=== PATIENT | male | born 1940 | race Caucasian/White ===

== ENCOUNTER 2016-10-23 06:01 | Emergency (ER) | payer BC ==
[~2016-10-23] VITALS: Ht 172.7 cm; Wt 75.7 kg
[~2016-10-23 06:01] MED LIST: AMLO-110 PO; ASCO10003 PO; ASPI325T39 PO; ATV5X PO; CALC600T9 PO; FLUO20CA20 PO; HYDR-4331 PO; JAYLN PO; LANS30CA63 PO; LISI10TA PO; MAGN300C PO; METH-589 PO; MULT-506 PO; OMEGCAP2 PO; SIMV20TA2 PO; TRAM-10 PO
[2016-10-23 06:05] VITALS: TEMP 36.6; Ht 172.7 cm; Wt 75.7 kg
[2016-10-23] MEDS ORDERED: MELO7.5T5 PO (06:24)
[2016-10-23] MEDS ORDERED: DUTACAP PO (06:31)
[2016-10-23] MEDS ORDERED: OXYCODONE HCL IR 5 MG TAB (IMMEDIATE RELEASE) PO STA (07:02)
--- NOTE | 2016-10-23 07:02 | EMERGENCY ROOM VISIT NOTE ---
History First contact with patient: 06:53 Chief Complaint: LEG PAIN,LEG INJURY Stated Complaint: LEFT LEG PAIN History of Present Illness The patient is a 76 year old male who presents to the Emergency Room via private vehicle accompanied by with complaints of "left leg pain". Patient states that a few days ago began with left hip pain has migrated to his left calf. He denies any injury or trauma to the area. He points to the left posterior calf as a location of the pain that he rates as an 8/10. At 05 100 this morning he took 15 mg of hydrocodone. He denies any history of blood clots, fevers, chills, chest pain, shortness of breath, long car rides, taking blood thinners, redness or swelling. He notes that he did fall this morning as he felt unstable on the left leg secondary to pain and denies any additional injury. No loss of consciousness. Review of Systems A complete 10-point Review of Systems was discussed with the patient, with pertinent positives and negatives listed in the History of Present Illness. All remaining Review of Systems questions can be considered negative unless otherwise specified. Past Medical/Surgical History High blood pressure, kidney disease, bronchitis, pneumonia, stomach problems, ulcer, urinary problems, craniotomy, melanoma, spinal problems Family History Diabetes, heart disease, high blood pressure, cancer, gallbladder disease, kidney disease or stones. Social History Smoking Status: Never Smoker Social History: Patient denies tobacco use but drinks a small amount of alcohol. Current/Historical Medications Scheduled Amlodipine (Norvasc), 5 MG PO DAILY Ascorbic Acid (Vitamin C), 1,000 MG PO HS Aspirin (Aspirin Ec), 325 MG PO Q2D Calcium Carbonate-Vitamin D (Calcium + D), 1 TAB PO BID Dutasteride-Tamsulosin Hcl (Yancy), 1 CAP PO HS Fluoxetine Hcl (Pmdd) (Fluoxetine), 40 MG PO QAM Lansoprazole (Prevacid), 30 MG PO QAM Lisinopril (Prinivil), 40 MG PO QAM Lorazepam (Lorazepam), 1.5 MG PO HS Magnesium (Magnesium Elemental), 300 MG PO HS Meloxicam (Mobic), 15 MG PO HS Methimazole (Methimazole ), 5 MG PO HS Multivitamin (Multivitamin), 1 TAB PO QAM [place]-3 Fatty Acids (Fish Oil), 1 CAP PO QAM Simvastatin (Zocor), 20 MG PO QPM Tramadol (Ultram), 1 TAB PO HS Scheduled PRN Hydrocodone-Acetaminophen (Lortab 7.5-325 mg), 2 TAB PO HS PRN for Pain Allergies Coded Allergies: No Known Allergies (Unverified , 10/23/16) Physical Exam Vital Signs Date Time Temp Pulse Resp B/P Pulse Ox O2 Delivery O2 Flow Rate FiO2 10/23/16 09:51 50 18 168/79 97 Room Air 10/23/16 07:56 49 18 155/69 97 Room Air 10/23/16 06:05 36.6 61 16 119/73 95 Room Air Physical Exam VITAL SIGNS - Vital signs and nursing notes were reviewed. Patient is afebrile , normotensive, non-tachycardic and is saturating well on room air at 95%. 76-year-old male appearing his stated age who is in no acute distress. Communicates well with provider and answers questions appropriately. SKIN - Without rashes. HEAD - NC/AT. EYES - Sclera anicteric. Palpebral conjunctiva pink and moist with no injection noted. EARS - No deformities of external structures noted on gross examination bilaterally. MOUTH/OROPHARYNX - Without perioral cyanosis. NECK - Neck with FROM. Supple to palpation. No c spine tenderness. LUNGS - Chest wall symmetric without accessory muscle use, intercostals retractions, or central cyanosis. Normal vesicular breath sounds CTA B/L. No wheezes, rales, or rhonchi appreciated. CARDIAC - RRR with S1/S2. No murmur, rubs, or gallops appreciated. EXTREMITIES - No clubbing or peripheral cyanosis. No pretibial edema present. Vascularly intact. No tenderness of the left hip, proximal leg or knee. Slight tenderness to the posterior calf. +5/5 strength noted in UE/LE bilaterally. Unremarkable right lower extremity. NEUROLOGIC - Cranial nerves II through XII grossly intact. Sensory intact to light touch throughout. PSYCH - A&Ox3 and cooperates fully with examiner. Pt is very pleasant and interacts well with examiner. Medical Decision & Procedures ER Provider Diagnostic Interpretation: ULTRASOUND LEFT LOWER EXTREMITY VENOUS CLINICAL HISTORY: Left calf pain. COMPARISON STUDY: No priors. TECHNIQUE: Real-time, grayscale, and color Doppler sonography of the deep veins of the left lower extremity was performed from the inguinal crease to the calf. Compression and augmentation were utilized. FINDINGS: There is no sonographic evidence of deep venous thrombosis identified in the left lower extremity. The common femoral, superficial femoral, and popliteal veins are patent and normally compressible. The greater saphenous vein and the profunda femoris vein at the junction with the common femoral vein are clear. The visualized calf veins are patent. IMPRESSION: There is no sonographic evidence of deep venous thrombosis identified in the left lower extremity. Electronically signed by: Iraj Mandujano M.D. 10/23/2016 7:55 AM Dictated Date/Time: 10/23/2016 7:55 AM LEFT TIBIA/FIBULA 2 VIEWS ROUTINE CLINICAL HISTORY: Left calf pain, no injury COMPARISON: Left tibia and fibula radiographs April 27, 2013. FINDINGS: No acute fracture or osseous lesion is identified within the left tibia or fibula. Talar dome is intact and alignment of the left knee and ankle appears anatomic. IMPRESSION: No osseous abnormality of the left tibia or fibula identified Electronically signed by: Leo Mcfarland M.D. 10/23/2016 8:46 AM Dictated Date/Time: 10/23/2016 8:45 AM Laboratory Results 10/23/16 08:20 Red Blood Count 3.92, Mean Corpuscular Volume 94.6, Mean Corpuscular Hemoglobin 31.9, Mean Corpuscular Hemoglobin Concent 33.7, Mean Platelet Volume 9.7, Neutrophils (%) (Auto) 66.2, Lymphocytes (%) (Auto) 22.3, Monocytes (%) (Auto) 7.2, Eosinophils (%) (Auto) 3.7, Basophils (%) (Auto) 0.4, Neutrophils # (Auto) 5.32, Lymphocytes # (Auto) 1.79, Monocytes # (Auto) 0.58, Eosinophils # (Auto) 0.30, Basophils # (Auto) 0.03 10/23/16 08:20 Test 10/23/16 08:20 White Blood Count 8.04 K/uL (4.8-10.8) Red Blood Count 3.92 M/uL (4.7-6.1) Hemoglobin 12.5 g/dL (14.0-18.0) Hematocrit 37.1 % (42-52) Mean Corpuscular Volume 94.6 fL (80-100) Mean Corpuscular Hemoglobin 31.9 pg (25-34) Mean Corpuscular Hemoglobin Concent 33.7 g/dl (32-36) Platelet Count 152 K/uL (130-400) Mean Platelet Volume 9.7 fL (7.4-10.4) Neutrophils (%) (Auto) 66.2 % Lymphocytes (%) (Auto) 22.3 % Monocytes (%) (Auto) 7.2 % Eosinophils (%) (Auto) 3.7 % Basophils (%) (Auto) 0.4 % Neutrophils # (Auto) 5.32 K/uL (1.4-6.5) Lymphocytes # (Auto) 1.79 K/uL (1.2-3.4) Monocytes # (Auto) 0.58 K/uL (0.11-0.59) Eosinophils # (Auto) 0.30 K/uL (0-0.5) Basophils # (Auto) 0.03 K/uL (0-0.2) RDW Standard Deviation 47.5 fL (36.4-46.3) RDW Coefficient of Variation 13.7 % (11.5-14.5) Immature Granulocyte % (Auto) 0.2 % Immature Granulocyte # (Auto) 0.02 K/uL (0.00-0.02) Anion Gap 7.0 mmol/L (3-11) Est Creatinine Clear Calc Drug Dose 56.1 ml/min Estimated GFR () 75.7 Estimated GFR (Non- 65.3 BUN/Creatinine Ratio 16.6 (10-20) Calcium Level 8.4 mg/dl (8.5-10.1) Total Bilirubin 0.2 mg/dl (0.2-1) Aspartate Amino Transf (AST/SGOT) 21 U/L (15-37) Alanine Aminotransferase (ALT/SGPT) 27 U/L (12-78) Alkaline Phosphatase 70 U/L (45-117) Total Creatine Kinase 110 U/L (39-308) Creatine Kinase MB 2.3 ng/ml (0.5-3.6) Creatine Kinase MB Ratio 2.1 (0-3.0) Total Protein 5.8 gm/dl (6.4-8.2) Albumin 3.1 gm/dl (3.4-5.0) Globulin 2.7 gm/dl (2.5-4.0) Albumin/Globulin Ratio 1.1 (0.9-2) Medications Administered Medications (Trade) Dose Ordered Sig/Obed Route Start Time Stop Time Status Last Admin Dose Admin Oxycodone HCl (Roxicodone Immediate Rel Tab) 5 mg NOW STAT PO 10/23/16 07:02 10/23/16 07:04 DC 10/23/16 07:09 5 MG Medical Decision Patient was seen and evaluated as above. After obtaining a thorough history and physical examination patient was given 5 mg of OxyIR secondary to pain and an ultrasound of the left lower extremity to rule out what I suspected to be a DVT. There was no evidence of trauma to the leg via subjective or objective exam and there was positive Homans sign. Ultrasound results as above. Negative for DVT. I was concerned that there may be underlying etiologies therefore IV access was then initiated and a CBC, CMP, CPK and CK-MB were ordered to further evaluate patient's condition as well as an x-ray of the leg. CBC reveals slight anemia no leukocytosis. CMP reveals no slight abnormality , kidney abnormality. Calcium was slightly low at 8.4 and total protein albumin were slightly low. Radiograph was negative. No evidence of rhabdomyolysis upon CK-MB or CPK. I believe the patient likely has a contusion to this area or potential muscle strain. He did request additional pain medication and the patient and I thoroughly discussed his current pain medications and looked through the answering a drug monitoring system. I indicated that he has to active prescriptions for pain medication therefore I do not feel comfortable writing for additional medication on top of 2 current prescriptions for narcotic medication. He verbalizes understanding. He was given the number for an orthopedic surgeon and instructed to call the numbers soon as possible schedule follow-up. He was educated upon worrisome symptoms in which to return. He declined crutches. He had questions answered prior to discharge, and was discharged home in good condition. He did seem happy with plan of care. In evaluation treatment this patient following differential diagnoses were entertained: Rhabdomyolysis, contusion, muscle strain, fracture, DVT, among others. I believe he is likely experiencing a muscle strain. [place] Drug Monitoring Program Search Results: patient reviewed within database, see additional documentation Impression Primary Impression: Leg pain, left Additional Impression: Anemia Departure Information Dispostion Home / Self-Care Condition GOOD Referrals Harish Tran M.D. (PCP) Wali Mancini D.O. Patient Instructions My [facility] Additional Instructions You have been treated in the Emergency Department for Knee Pain. You have received pain medicine in the emergency department which impairs your ability to operate a vehicle. It is illegal for you to drive after receiving these medicines. You may continue your pain medication as you have indicated. If this is a recent injury (<24 hrs), ice can be applied to the area of pain for the first 3 days to help decrease pain and inflammation. Ice massages can be performed by freezing water in a paper cup, peeling back the cup to expose the ice and then massaging over the affected area. You have been provided the number for an Orthopaedic Surgeon. You should call this number as soon as possible to establish a follow-up visit from today's Emergency Department visit. Keep the knee brace in place until cleared by Orthopedics. Call your family doctor and orthopedic surgeon following today's visit and request follow-up as soon as possible. Return to the Emergency Department if your current symptoms worsen despite treatment course outlined above. Problem Qualifiers
--- NOTE | 2016-10-23 07:56 | DIAGNOSTIC IMAGING REPORT ---
ULTRASOUND LEFT LOWER EXTREMITY VENOUS CLINICAL HISTORY: Left calf pain. COMPARISON STUDY: No priors. TECHNIQUE: Real-time, grayscale, and color Doppler sonography of the deep veins of the left lower extremity was performed from the inguinal crease to the calf. Compression and augmentation were utilized. FINDINGS: There is no sonographic evidence of deep venous thrombosis identified in the left lower extremity. The common femoral, superficial femoral, and popliteal veins are patent and normally compressible. The greater saphenous vein and the profunda femoris vein at the junction with the common femoral vein are clear. The visualized calf veins are patent. IMPRESSION: There is no sonographic evidence of deep venous thrombosis identified in the left lower extremity. Electronically signed by: Iraj Mandujano M.D. 10/23/2016 7:55 AM Dictated Date/Time: 10/23/2016 7:55 AM
[2016-10-23 08:33] LABS: BASO % 0.4 %; BASO ABS # 0.03 K/uL (0-0.2); COMPLETE YES; EOS % 3.7 %; HEMATOCRIT 37.1 % (42-52); IG% 0.2 %; LYMPH % 22.3 %; LYMPH ABS # 1.79 K/uL (1.2-3.4); MEAN CELL VOLUME 94.6 fL (80-100); MEAN CORPUSCULAR HEMOGLOBIN 31.9 pg (25-34); MEAN CORPUSCULAR HGB CONC 33.7 g/dl (32-36); MEAN PLATELET VOLUME 9.7 fL (7.4-10.4); MONO % 7.2 %; NEUT % 66.2 %; PLATELET COUNT 152 K/uL (130-400); RED BLOOD COUNT 3.92 M/uL (4.7-6.1); WHITE BLOOD COUNT 8.04 K/uL (4.8-10.8)
--- NOTE | 2016-10-23 08:48 | DIAGNOSTIC IMAGING REPORT ---
LEFT TIBIA/FIBULA 2 VIEWS ROUTINE CLINICAL HISTORY: Left calf pain, no injury COMPARISON: Left tibia and fibula radiographs April 27, 2013. FINDINGS: No acute fracture or osseous lesion is identified within the left tibia or fibula. Talar dome is intact and alignment of the left knee and ankle appears anatomic. IMPRESSION: No osseous abnormality of the left tibia or fibula identified Electronically signed by: Leo Mcfarland M.D. 10/23/2016 8:46 AM Dictated Date/Time: 10/23/2016 8:45 AM
[2016-10-23 08:54] LABS: BUN/CREATININE RATIO 16.6 (10-20); CALCIUM 8.4 mg/dl (8.5-10.1); CREATININE 1.1 mg/dl (0.60-1.40); POTASSIUM 4.5 mmol/L (3.5-5.1)
[2016-10-23 08:57] LABS: ALB/GLOB RATIO 1.1 (0.9-2); CKMB/CK RATIO 2.1 (0-3.0)
[2016-10-23 09:51] VITALS: BP 168/79; PULSE 50; O2SAT 97
--- NOTE | 2016-10-24 21:13 | EMERGENCY ROOM VISIT NOTE ---
ED Visit Note First contact with patient: 06:53 I have personally seen and evaluated the patient with the PA. I agree with the diagnosis and management decisions and have been personally involved in the case. Please see Greogry Thurston PA-C's notes for further details of the history, physical and visit.
[2016-11-06] MEDS ORDERED: MULT-506 PO (13:48)
[2016-11-06] MEDS ORDERED: SIMV20TA5 PO (13:48)
[2016-11-06] MEDS ORDERED: METH-589 PO (13:48)
[2016-11-06] MEDS ORDERED: FLUO40CA8 PO (13:48)
[2016-11-06] MEDS ORDERED: LORA-741 PO (13:48)
[2016-11-06] MEDS ORDERED: CALC500C70 PO (13:48)
[2016-11-06] MEDS ORDERED: VITACAP26 PO (13:48)
[2016-11-06] MEDS ORDERED: OMEG10007 PO (13:48)
[2016-11-06] MEDS ORDERED: DUTACAP PO (13:48)
[2016-11-06] MEDS ORDERED: HYDR-5688 PO (13:48)
[2016-11-06] MEDS ORDERED: LISI1TAB3 PO (13:48)
[2016-11-06] MEDS ORDERED: RXC/5 PO (13:48)
[2016-11-06] MEDS ORDERED: GABA-113 PO (13:48)
[2016-11-06] MEDS ORDERED: ASPI325T39 PO (13:48)
[2016-11-06] MEDS ORDERED: MAGNESIUM 300 MG PO (13:48)
[2016-11-06] MEDS ORDERED: LANS30CA12 PO (13:48)
[2016-11-07] MEDS ORDERED: HYDR-3983 PO (15:04)
[2016-12-31] MEDS ORDERED: NORT25CA PO (08:39)
[2017-05-31] MEDS ORDERED: FURO-85 PO (14:22)
[2017-05-31] MEDS ORDERED: DOXA2TAB PO (14:22)
== END 2016-10-23 10:20 | disposition home or self-care (01) ==
LOC: C.EDB 06:02
DX: M79.605 Pain in left leg (principal); D64.9 Anemia, unspecified; I12.9 Hypertensive chronic kidney disease with stage 1 through stage 4 chronic kidney disease, or unspecified chronic kidney disease; N18.9 Chronic kidney disease, unspecified; Z79.82 Long term (current) use of aspirin; Z79.899 Other long term (current) drug therapy; Z83.3 Family history of diabetes mellitus; Z80.9 Family history of malignant neoplasm, unspecified; Z83.79 Family history of other diseases of the digestive system; Z84.1 Family history of disorders of kidney and ureter

== ENCOUNTER → 2016-10-26 | Outpatient (CLI) | payer BC ==
[~2016-10-26] MED LIST changes: +AMOX875T PO; +CALC500C70 PO; +DOXA2TAB PO; +DUTACAP PO; +FLUO40CA8 PO; +FURO-85 PO; +GABA-113 PO; +HYDR-3983 PO; +HYDR-5688 PO; -JAYLN PO; +LANS30CA12 PO; +LISI1TAB3 PO; +LISI40TA PO; +LORA-741 PO; +MAGN30TA4 PO; +MAGNESIUM 300 MG PO; +MELO7.5T5 PO; +NORT25CA PO; +NORT50CA PO; +OMEG10007 PO; +RXC/5 PO; +SIMV20TA5 PO; +TPRSR50 PO; +VITACAP26 PO; +[UNRECOGNIZED DRUG - CODE] PO
[2016-10-26 12:29] LABS: HEMATOCRIT 38.7 % (42-52); MEAN CELL VOLUME 95.1 fL (80-100); MEAN CORPUSCULAR HEMOGLOBIN 31.2 pg (25-34); MEAN CORPUSCULAR HGB CONC 32.8 g/dl (32-36); MEAN PLATELET VOLUME 10.5 fL (7.4-10.4); PLATELET COUNT 177 K/uL (130-400); RED BLOOD COUNT 4.07 M/uL (4.7-6.1); WHITE BLOOD COUNT 7.89 K/uL (4.8-10.8)
[2016-10-26 12:40] LABS: ALT/SGPT 63 U/L (12-78); BLOOD UREA NITROGEN 19 mg/dl (7-18); BUN/CREATININE RATIO 16.8 (10-20); CALCIUM 8.7 mg/dl (8.5-10.1); CARBON DIOXIDE 32 mmol/L (21-32); CHLORIDE 105 mmol/L (98-107); CHOLESTEROL 171 mg/dl (0-200); GLUCOSE 65 mg/dl (70-99); POTASSIUM 4.4 mmol/L (3.5-5.1); SODIUM 143 mmol/L (136-145); TRIGLYCERIDES 105 mg/dl (0-150); VERY LOW DENSITY LIPOPROT CALC 21 mg/dl
[2016-10-26 12:49] LABS: ALB/GLOB RATIO 1.1 (0.9-2); ALKALINE PHOSPHATASE 87 U/L (45-117); AST/SGOT 62 U/L (15-37); CHOLESTEROL/HDL RATIO 3.4; HDL CHOLESTEROL 50 mg/dl; LDL CHOLESTEROL CALCULATED 100 mg/dl
[2016-10-26 13:19] LABS: ESTIMATED AVERAGE GLUCOSE 105 mg/dl; HA1C FLAG Normal (Normal)
== END | disposition home or self-care (01) ==
LOC: C.LABBFT 09:38
PROVIDERS: ATTEND Internal Medicine
DX: E05.90 Thyrotoxicosis, unspecified without thyrotoxic crisis or storm (principal); I10 Essential (primary) hypertension; E78.00 Pure hypercholesterolemia, unspecified; R73.01 Impaired fasting glucose

== ENCOUNTER 2016-10-28 00:40 | Emergency (ER) | payer BC ==
[~2016-10-28] VITALS: Ht 172.7 cm; Wt 77.6 kg
[~2016-10-28 00:40] MED LIST changes: -AMOX875T PO; -CALC500C70 PO; -DOXA2TAB PO; -FLUO40CA8 PO; -FURO-85 PO; -GABA-113 PO; -HYDR-3983 PO; -HYDR-5688 PO; -LANS30CA12 PO; -LISI1TAB3 PO; -LISI40TA PO; -LORA-741 PO; -MAGN30TA4 PO; -MAGNESIUM 300 MG PO; -NORT25CA PO; -NORT50CA PO; -OMEG10007 PO; -RXC/5 PO; -SIMV20TA5 PO; -TPRSR50 PO; -VITACAP26 PO; -[UNRECOGNIZED DRUG - CODE] PO
[2016-10-28 00:45] VITALS: BP 199/86; TEMP 36.6; Ht 172.7 cm; Wt 77.6 kg
[2016-10-28] MEDS ORDERED: MoRPHine SULFATE 10 MG/ML CARP/VIAL IM STA (01:04)
[2016-10-28] MEDS ORDERED: FENTANYL 50 MCG/HR TDSY TD STA (01:04)
--- NOTE | 2016-10-28 01:11 | EMERGENCY ROOM VISIT NOTE ---
History Report prepared by Abimael: Oly Vásquez Under the Supervision of: Dr. Jerry Blanton D.O. 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 The patient states that he has five herniated discs in his back. The patient has seen pain management and his primary care physician. He was given prednisone and oxycodone tablets. He states that nothing has helped his pain. The patient states that he will be getting an injection in his back in four days. He denies difficulty urinating or having bowel movement. Additionally, the patient states that he had been taking hydrocodone for several years for leg pain. Source of History: patient Onset: STOCK BROKER Position: back Quality: other (back pain) Timing: worsening Note: He also has some leg pain. He denies difficulty urinating or having bowel movement. Review of Systems See HPI for pertinent positives & negatives. A total of 10 systems reviewed and were otherwise negative. Past Medical & Surgical Medical Problems: (1) Herniated disc Family History Diabetes mellitus Heart disease Social History Smoking Status: Never Smoker Marital Status: Housing Status: lives with family Occupation Status: retired Current/Historical Medications Scheduled Amlodipine (Norvasc), 5 MG PO DAILY Ascorbic Acid (Vitamin C), 1,000 MG PO HS Aspirin (Aspirin Ec), 325 MG PO Q2D Calcium Carbonate-Vitamin D (Calcium + D), 1 TAB PO BID Dutasteride-Tamsulosin Hcl (Yancy), 1 CAP PO HS Fluoxetine Hcl (Pmdd) (Fluoxetine), 40 MG PO QAM Lansoprazole (Prevacid), 30 MG PO QAM Lisinopril (Prinivil), 40 MG PO QAM Lorazepam (Lorazepam), 1.5 MG PO HS Magnesium (Magnesium Elemental), 300 MG PO HS Meloxicam (Mobic), 15 MG PO HS Methimazole (Methimazole ), 5 MG PO HS Multivitamin (Multivitamin), 1 TAB PO QAM [place]-3 Fatty Acids (Fish Oil), 1 CAP PO QAM Simvastatin (Zocor), 20 MG PO QPM Tramadol (Ultram), 1 TAB PO HS Scheduled PRN Hydrocodone-Acetaminophen (Lortab 7.5-325 mg), 2 TAB PO HS PRN for Pain Allergies Coded Allergies: No Known Allergies (Unverified , 10/23/16) Physical Exam Vital Signs Date Time Temp Pulse Resp B/P Pulse Ox O2 Delivery O2 Flow Rate FiO2 10/28/16 00:45 36.6 60 18 199/86 98 Room Air Physical Exam CONSTITUTIONAL/VITAL SIGNS: Reviewed / noted above. GENERAL: Non-toxic in appearance. INTEGUMENTARY: Warm, dry, and [place]. HEAD: Normocephalic. EYES: without scleral icterus or trauma. ENT/OROPHARYNX: clear and moist. LYMPHADENOPATHY/NECK: Is supple without lymphadenopathy or meningismus. RESPIRATORY: Lungs clear and equal. CARDIOVASCULAR: Regular rate and rhythm. GI/ABDOMEN: Soft and nontender. No organomegaly or pulsatile mass. No rebound or guarding. Normal bowel sounds. EXTREMITIES: Warm and well perfused. BACK: No CVA tenderness. NEUROLOGICAL: Intact without focal deficits. PSYCHIATRIC: normal affect. MUSCULOSKELETAL: Normally developed with good muscle tone. Medical Decision & Procedures ED Course 0056: Previous medical records were reviewed. The patient was evaluated in room B9. A complete history and physical examination was performed. 0104: Morphine Sulfate 6 mg IM, Fentanyl 50 mcg TD 0112: I discussed the results and findings with the patient. He verbalized agreement of the treatment plan. The patient was discharged home. Medical Decision The patient is a 76 year old male who presents to the ED with complaints of back pain. The patient has been seen by pain management at several days ago and is scheduled to have an injection in his back. I did review the records. The patient is currently on Percocet for pain as well. He came in for something stronger. He was looking for prescription for possibly morphine or something stronger than that. He has been on hydrocodone for a prolonged period time and likely has tolerance. I was unable to provide him with a prescription but an IM injection of morphine was provided and a fentanyl patch was also provided. He is to follow up with pain management this week for his injection. He will talk to them about additional pain management. His physical exam was essentially unremarkable. He denies any bowel or bladder dysfunction. Differential diagnosis: Etiologies such as musculoskeletal, disc herniation, fracture, aortic disease, metastatic disease, cord compression, discitis, infection, renal colic, gastrointestinal, acute exacerbation of chronic back pain, sciatica, cauda equina, as well as others were entertained. Impression Primary Impression: Acute exacerbation of chronic low back pain Scribe Attestation The scribe's documentation has been prepared under my direction and personally reviewed by me in its entirety. I confirm that the note above accurately reflects all work, treatment, procedures, and medical decision making performed by me. Departure Information Dispostion Home / Self-Care Referrals Harish Tran M.D. 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
[2016-10-28 01:18] VITALS: PULSE 60; O2SAT 98
[2016-11-06] MEDS ORDERED: MULT-506 PO (13:48)
[2016-11-06] MEDS ORDERED: HYDR-5688 PO (13:48)
[2016-11-06] MEDS ORDERED: LISI1TAB3 PO (13:48)
[2016-11-06] MEDS ORDERED: SIMV20TA5 PO (13:48)
[2016-11-06] MEDS ORDERED: RXC/5 PO (13:48)
[2016-11-06] MEDS ORDERED: DUTACAP PO (13:48)
[2016-11-06] MEDS ORDERED: FLUO40CA8 PO (13:48)
[2016-11-06] MEDS ORDERED: LANS30CA12 PO (13:48)
[2016-11-06] MEDS ORDERED: OMEG10007 PO (13:48)
[2016-11-06] MEDS ORDERED: CALC500C70 PO (13:48)
[2016-11-06] MEDS ORDERED: METH-589 PO (13:48)
[2016-11-06] MEDS ORDERED: VITACAP26 PO (13:48)
[2016-11-06] MEDS ORDERED: ASPI325T39 PO (13:48)
[2016-11-06] MEDS ORDERED: MAGNESIUM 300 MG PO (13:48)
[2016-11-06] MEDS ORDERED: LORA-741 PO (13:48)
[2016-11-06] MEDS ORDERED: GABA-113 PO (13:48)
[2016-11-07] MEDS ORDERED: HYDR-3983 PO (15:04)
[2016-12-31] MEDS ORDERED: NORT25CA PO (08:39)
[2017-05-31] MEDS ORDERED: DOXA2TAB PO (14:22)
[2017-05-31] MEDS ORDERED: FURO-85 PO (14:22)
== END 2016-10-28 01:24 | disposition home or self-care (01) ==
LOC: C.EDB 00:42
DX: M54.5 Low back pain (principal); G89.29 Other chronic pain; Z79.82 Long term (current) use of aspirin; Z79.899 Other long term (current) drug therapy

== ENCOUNTER 2016-11-07 05:53 | Observation (INO) | payer BC ==
[~2016-11-07] VITALS: Ht 172.7 cm; Wt 72.7 kg
[~2016-11-07 05:53] MED LIST changes: -AMLO-110 PO; -ASCO10003 PO; -ATV5X PO; +CALC500C70 PO; -CALC600T9 PO; -FLUO20CA20 PO; +FLUO40CA8 PO; +GABA-113 PO; -HYDR-4331 PO; +HYDR-5688 PO; +LANS30CA12 PO; -LANS30CA63 PO; -LISI10TA PO; +LISI1TAB3 PO; +LORA-741 PO; -MAGN300C PO; +MAGNESIUM 300 MG PO; -MELO7.5T5 PO; +OMEG10007 PO; -OMEGCAP2 PO; +RXC/5 PO; -SIMV20TA2 PO; +SIMV20TA5 PO; -TRAM-10 PO; +VITACAP26 PO
[2016-11-07] MEDS ORDERED: LISI40TA PO (06:18)
[2016-11-07] MEDS ORDERED: AMLO-110 PO (06:24)
[2016-11-07] MEDS ORDERED: HYDROmorphone INJ 2 MG/ML SYR/VIAL IM STA (06:36)
[2016-11-07] MEDS ORDERED: ONDANSETRON 4MG OD TAB PO STA (06:36)
--- NOTE | 2016-11-07 06:47 | EMERGENCY ROOM VISIT NOTE ---
History Report prepared by Abimael: Tyler Curtis Under the Supervision of: Dr. Jerry Fuentes M.D. First contact with patient: 06:31 Chief Complaint: BACK PAIN Stated Complaint: BACK / HIP PAIN History of Present Illness The patient is a 76 year old male who presents to the Emergency Room with complaints of worsening lower back pain, rated 8/10 in severity. The patient has a history of L1-L5 degeneration. The patient also has pain radiating down his right leg. He denies any weakness, numbness, or tingling of the legs. The patient follows up with pain management. He had an appointment yesterday but was not treated because his blood pressure was too high. He intends to schedule an appointment with them for an epidural later today. He states that he will be referred to a spinal surgeon if the epidural is not effective. The patient came to the ED today because he cannot control his pain. He takes Hydrocodone, which is no longer effective. The patient has been given Morphine and a Fentanyl patch in the ED with little relief. The patient also takes Gabapentin. He is not on any blood thinners. Source of History: patient Position: back (lower) Symptom Intensity: 8/10 Timing: worsening Modifying Factors (Relieving): other (No relief from Hydrocodone) Associated Symptoms: No numbness, No weakness Review of Systems See HPI for pertinent positives & negatives. A total of 10 systems reviewed and were otherwise negative. Past Medical & Surgical Medical Problems: (1) Herniated disc (2) Intractable low back pain (3) Lumbago Family History Diabetes mellitus Heart disease Social History Smoking Status: Former Smoker Marital Status: Housing Status: lives with family Occupation Status: retired Current/Historical Medications Scheduled Amlodipine (Norvasc), 5 MG PO DAILY Calcium/Vitamin D (Os-Clarence 500 Plus D), 1 TAB PO DAILY Dutasteride-Tamsulosin Hcl (Yancy), 1 CAP PO DAILY Fluoxetine (Prozac), 40 MG PO DAILY Gabapentin (Neurontin), 600 MG PO TID Lansoprazole (Prevacid), 30 MG PO DAILY Lisinopril (Zestril), 40 MG PO DAILY Lorazepam (Ativan), 0.5 MG PO TID Methimazole (Methimazole ), 5 MG PO DAILY Multivitamin (Multivitamin), 1 TAB PO DAILY Simvastatin (Zocor), 20 MG PO HS Vitamins C & E (Vitamin C), 1 TAB PO DAILY [magnesium 300mg], 300 MG PO DAILY Scheduled PRN Hydrocodone/Acetaminophen 7.5MG/325MG ([place] 7.5MG/325MG), 1 TAB PO Q6H PRN for Pain Miscellaneous Medications Aspirin (Aspirin Ec), 325 MG PO Fish Oil ([place]-3), 1 CAP PO Allergies Coded Allergies: No Known Allergies (Unverified , 11/07/16) Physical Exam Vital Signs Date Time Temp Pulse Resp B/P Pulse Ox O2 Delivery O2 Flow Rate FiO2 11/07/16 09:29 48 16 115/67 97 Room Air 11/07/16 08:52 99 Nasal Cannula 2.0 11/07/16 08:51 45 18 124/68 99 Nasal Cannula 2.0 11/07/16 08:34 46 11/07/16 08:29 49 18 135/69 98 Room Air 11/07/16 07:35 49 18 130/72 97 Room Air 11/07/16 05:59 37.2 55 20 147/82 98 Room Air Physical Exam GENERAL: Patient is a healthy-appearing well-nourished HEAD: Normocephalic atraumatic EYES: Ocular movements intact pupils equal and react to light OROPHARYNX mucous membranes are moist no exudates present no erythema or edema present NECK: Supple no nuchal rigidity CHEST: Good equal expansion LUNGS: Clear and equal to auscultation CARDIAC: Normal S1 and S2 ABDOMEN: Soft nontender no guarding BACK: No CVA tenderness. No saddle anesthesia, no loss of bowel or bladder control, no loss of strength to lower extremities. EXTREMITIES: No pain upon palpation normal muscle strength in all groups no clubbing cyanosis or edema NEURO: Patient is following commands is answering questions appropriately. Alert and oriented x3 Cranial Nerves 2-12 grossly intact Medical Decision & Procedures ER Provider Diagnostic Interpretation: MRI results as stated below per my review and radiologist interpretation: MRI LUMBAR SPINE W/O CONTRAST CLINICAL HISTORY: Low back pain. History of squamous cell carcinoma of the chest. Difficulty in ambulation. TECHNIQUE: Sagittal and axial T1, T2 and STIR images were obtained. COMPARISON STUDY: 03/21/2015 OBSERVATIONS: There are innumerable right renal cysts, enlarging the right kidney which measures 16 cm in length. A few left renal cysts are also visualized. There is a nonspecific 8 mm focus of diminished T1 signal within the L4 vertebra, L1-2: There is a circumferential disc bulge present. There is mild spinal stenosis. There is no significant foraminal stenosis L2-3: There is a small right posterior lateral disc protrusion. This remain similar to the preceding study. This deforms the right anterolateral aspect the thecal sac. There is mild spinal canal narrowing at this level. L3-4: There is a circumferential disc bulge with mild spinal stenosis. There is no significant foraminal narrowing. L4-5: There is a small central disc protrusion which deforms the anterior aspect the thecal sac. There is mild spinal canal narrowing. There is no significant foraminal narrowing L5-S1: There is a circumferential disc bulge present. There is mild spinal canal narrowing. The conus medullaris and cauda equina appear normal. IMPRESSION: 1. Nonspecific 8 mm focus of marrow replacement involving the L4 vertebra, similar to the preceding study. While nonspecific, the stability favors a benign process. 2. Innumerable right renal cysts 3. Multilevel spondylitic changes with mild multilevel spinal stenosis 4. Stable small right posterior lateral disc protrusion at the L2-3 level 5. Stable central disc protrusion at the L4-5 level. Electronically signed by: Kailash Hardy M.D. 11/07/2016 9:39 AM Dictated Date/Time: 11/07/2016 9:31 AM Laboratory Results 11/07/16 08:30 Red Blood Count 4.07, Mean Corpuscular Volume 93.9, Mean Corpuscular Hemoglobin 31.9, Mean Corpuscular Hemoglobin Concent 34.0, Mean Platelet Volume 9.9, Neutrophils (%) (Auto) 65.9, Lymphocytes (%) (Auto) 23.8, Monocytes (%) (Auto) 7.6, Eosinophils (%) (Auto) 1.9, Basophils (%) (Auto) 0.4, Neutrophils # (Auto) 6.12, Lymphocytes # (Auto) 2.21, Monocytes # (Auto) 0.71, Eosinophils # (Auto) 0.18, Basophils # (Auto) 0.04 11/07/16 08:30 Test 11/07/16 08:30 White Blood Count 9.30 K/uL (4.8-10.8) Red Blood Count 4.07 M/uL (4.7-6.1) Hemoglobin 13.0 g/dL (14.0-18.0) Hematocrit 38.2 % (42-52) Mean Corpuscular Volume 93.9 fL (80-100) Mean Corpuscular Hemoglobin 31.9 pg (25-34) Mean Corpuscular Hemoglobin Concent 34.0 g/dl (32-36) Platelet Count 169 K/uL (130-400) Mean Platelet Volume 9.9 fL (7.4-10.4) Neutrophils (%) (Auto) 65.9 % Lymphocytes (%) (Auto) 23.8 % Monocytes (%) (Auto) 7.6 % Eosinophils (%) (Auto) 1.9 % Basophils (%) (Auto) 0.4 % Neutrophils # (Auto) 6.12 K/uL (1.4-6.5) Lymphocytes # (Auto) 2.21 K/uL (1.2-3.4) Monocytes # (Auto) 0.71 K/uL (0.11-0.59) Eosinophils # (Auto) 0.18 K/uL (0-0.5) Basophils # (Auto) 0.04 K/uL (0-0.2) RDW Standard Deviation 47.5 fL (36.4-46.3) RDW Coefficient of Variation 13.8 % (11.5-14.5) Immature Granulocyte % (Auto) 0.4 % Immature Granulocyte # (Auto) 0.04 K/uL (0.00-0.02) Erythrocyte Sedimentation Rate 3 mm/hr (0-14) Anion Gap 6.0 mmol/L (3-11) Est Creatinine Clear Calc Drug Dose 56.1 ml/min Estimated GFR () 75.7 Estimated GFR (Non- 65.3 BUN/Creatinine Ratio 20.3 (10-20) Calcium Level 8.6 mg/dl (8.5-10.1) Total Bilirubin 0.6 mg/dl (0.2-1) Direct Bilirubin 0.1 mg/dl (0-0.2) Aspartate Amino Transf (AST/SGOT) 34 U/L (15-37) Alanine Aminotransferase (ALT/SGPT) 37 U/L (12-78) Alkaline Phosphatase 75 U/L (45-117) C-Reactive Protein < 0.29 mg/dl (0-0.29) Total Protein 5.9 gm/dl (6.4-8.2) Albumin 3.1 gm/dl (3.4-5.0) Lipase 157 U/L (73-393) Labs reviewed by ED physician. Medications Administered Medications (Trade) Dose Ordered Sig/Obed Route Start Time Stop Time Status Last Admin Dose Admin Hydromorphone HCl (Dilaudid Inj) 2 mg NOW STAT IM 11/07/16 06:36 11/07/16 06:38 DC 11/07/16 06:45 2 MG Ondansetron HCl (Zofran Odt) 4 mg ONE STAT PO 11/07/16 06:36 11/07/16 06:38 DC 11/07/16 06:45 4 MG Diazepam (Valium Inj) 10 mg NOW STAT IV 11/07/16 08:12 11/07/16 08:14 DC 11/07/16 08:30 10 MG ED Course 0634: Past medical records reviewed. The patient was evaluated in room B3b. A complete history and physical examination was performed. 0636: Zofran Odt 4 mg PO, Dilaudid 2 mg IM. 0718: The patient is much more comfortable. 0812: Valium 10 mg IV. 1005: [facility] will be [facility]. Medical Decision Prior records/ancillary studies reviewed. Triage Nursing notes reviewed. The patient's history was concerning for back pain. Differential diagnosis: Etiologies such as musculoskeletal, disc herniation, fracture, aortic disease, metastatic disease, cord compression, discitis, infection, renal colic, gastrointestinal, acute exacerbation of chronic back pain, sciatica, cauda equina, as well as others were entertained. This is a 76-year-old male who presents emergency department complaining of back pain. The patient reports he does not want to live anymore because of the pain as he has not been able to get it under control. Originally the patient was given 2 mg of Dilaudid here in the emergency department. He was then sent for an MRI of his spine. For this reason an IV was established and the patient was given 5 mg of Valium 2. I then attempted to get the patient in with pain management however was told there were no appointments available today for this reason I then discussed the case with the hospitalist service who agreed to admit the patient. Patient and are in agreement with the treatment plan. Consults Time Called: 1000 Consulting Physician: Dr. Sommers, [facility] Returned Call: [phone]: Spoke with Dr. Sommers [facility]. The patient will be evaluated. Impression Primary Impression: Intractable low back pain Scribe Attestation The scribe's documentation has been prepared under my direction and personally reviewed by me in its entirety. I confirm that the note above accurately reflects all work, treatment, procedures, and medical decision making performed by me. Departure Information Dispostion Being Evaluated By Hospitalist Prescriptions Hydrocodone/Acetaminophen 7.5MG/325MG ([place] 7.5MG/325MG) Tab 1 TAB PO Q6H Y for Pain, #10 TAB PRN PAIN Prov: Donald Sommers, D.O. 11/07/16 Referrals Harish Tran M.D. (PCP) Patient Instructions My [facility]
[2016-11-07] MEDS ORDERED: DIAZEPAM INJ 5 MG/ML 2 ML CARP IV STA (08:12)
[2016-11-07 08:39] LABS: BASO % 0.4 %; BASO ABS # 0.04 K/uL (0-0.2); COMPLETE YES; EOS % 1.9 %; HEMATOCRIT 38.2 % (42-52); IG% 0.4 %; LYMPH % 23.8 %; LYMPH ABS # 2.21 K/uL (1.2-3.4); MEAN CELL VOLUME 93.9 fL (80-100); MEAN CORPUSCULAR HEMOGLOBIN 31.9 pg (25-34); MEAN PLATELET VOLUME 9.9 fL (7.4-10.4); MONO % 7.6 %; NEUT % 65.9 %; PLATELET COUNT 169 K/uL (130-400); RED BLOOD COUNT 4.07 M/uL (4.7-6.1)
[2016-11-07 09:03] LABS: ALT/SGPT 37 U/L (12-78); BLOOD UREA NITROGEN 22 mg/dl (7-18); BUN/CREATININE RATIO 20.3 (10-20); C-REACTIVE PROTEIN < 0.29 mg/dl (0-0.29); CALCIUM 8.6 mg/dl (8.5-10.1); CARBON DIOXIDE 29 mmol/L (21-32); CHLORIDE 105 mmol/L (98-107); GLUCOSE 79 mg/dl (70-99); POTASSIUM 4.3 mmol/L (3.5-5.1); SODIUM 140 mmol/L (136-145)
[2016-11-07 09:06] LABS: ALKALINE PHOSPHATASE 75 U/L (45-117); AST/SGOT 34 U/L (15-37)
--- NOTE | 2016-11-07 09:41 | DIAGNOSTIC IMAGING REPORT ---
MRI LUMBAR SPINE W/O CONTRAST CLINICAL HISTORY: Low back pain. History of squamous cell carcinoma of the chest. Difficulty in ambulation. TECHNIQUE: Sagittal and axial T1, T2 and STIR images were obtained. COMPARISON STUDY: 03/21/2015 OBSERVATIONS: There are innumerable right renal cysts, enlarging the right kidney which measures 16 cm in length. A few left renal cysts are also visualized. There is a nonspecific 8 mm focus of diminished T1 signal within the L4 vertebra, L1-2: There is a circumferential disc bulge present. There is mild spinal stenosis. There is no significant foraminal stenosis L2-3: There is a small right posterior lateral disc protrusion. This remain similar to the preceding study. This deforms the right anterolateral aspect the thecal sac. There is mild spinal canal narrowing at this level. L3-4: There is a circumferential disc bulge with mild spinal stenosis. There is no significant foraminal narrowing. L4-5: There is a small central disc protrusion which deforms the anterior aspect the thecal sac. There is mild spinal canal narrowing. There is no significant foraminal narrowing L5-S1: There is a circumferential disc bulge present. There is mild spinal canal narrowing. The conus medullaris and cauda equina appear normal. IMPRESSION: 1. Nonspecific 8 mm focus of marrow replacement involving the L4 vertebra, similar to the preceding study. While nonspecific, the stability favors a benign process. 2. Innumerable right renal cysts 3. Multilevel spondylitic changes with mild multilevel spinal stenosis 4. Stable small right posterior lateral disc protrusion at the L2-3 level 5. Stable central disc protrusion at the L4-5 level. Electronically signed by: Kailash Hardy M.D. 11/07/2016 9:39 AM Dictated Date/Time: 11/07/2016 9:31 AM
[2016-11-07] MEDS ORDERED: ACETAMINOPHEN 325 MG TAB PO PRN (10:15)
[2016-11-07] MEDS ORDERED: HYDROmorphone INJ 1 MG/ML SYR IV PRN (10:15)
[2016-11-07] MEDS ORDERED: ONDANSETRON INJ 2 MG/ML 2 ML VIAL IV PRN (10:15)
[2016-11-07] MEDS ORDERED: HYDROCODONE/ACETAMINOPHEN 7.5/325MG TAB PO PRN (10:15)
[2016-11-07] MEDS ORDERED: HYDROmorphone INJ 1 MG/ML SYR ONE (10:58)
[2016-11-07 11:13] VITALS: BP 131/69; PULSE 50; TEMP 36.6; O2SAT 98
[2016-11-07 11:21] VITALS: BP 131/69; O2SAT 98; Ht 172.7 cm; Wt 72.7 kg
[2016-11-07] MEDS ORDERED: IV FLUIDS COMPLETED PRN (12:15)
[2016-11-07] MEDS ORDERED: LORAZEPAM 0.5 MG TAB PO SCH (14:00)
[2016-11-07] MEDS ORDERED: GABAPENTIN 600 MG TAB PO SCH (14:00)
[2016-11-07] MEDS ORDERED: HYDR-3983 PO (15:04)
--- NOTE | 2016-11-07 15:06 | Discharge Instructions ---
Discharge Instructions Admission Reason for Admission: Intractable Low Back Pain, Lumbago Discharge Discharge Diagnosis / Problem: Intractable back pain Discharge Goals Goal(s): Decrease discomfort, Therapeutic intervention (pain injection tomorrow ) Activity Recommendations Activity Limitations: resume your previous activity Lifting Limitations: until after follow-up appointment Exercise/Sports Limitations: none May Resume Sexual Activity: when tolerated Shower/Bathe: no limitations Driving or Machine Use: no driving while on narcotics . Instructions / Follow-Up Instructions / Follow-Up Medications: - please use [place] 7.5/325mg every 6 hours as needed for pain - please note that Dr. Rocha sent scripts electronically to [place], please tow picker those today as well believe this was for Nortriptyline FOLLOW UP - Dr. Rocha tomorrow for pain injection Current Hospital Diet Patient's current hospital diet: Regular Diet Discharge Diet Recommended Diet: Regular Diet Pending Studies Studies pending at discharge: no Laboratory Results Hemoglobin A1c Test 10/26/16 09:40 Range/Units Estimated Average Glucose 105 mg/dl Hemoglobin A1c 5.3 4.5-5.6 % Lipid Panel Test 10/26/16 09:40 Range/Units Triglycerides Level 105 0-150 mg/dl Cholesterol Level 171 0-200 mg/dl HDL Cholesterol 50 mg/dl Cholesterol/HDL Ratio 3.4 LDL Cholesterol, Calculated 100 mg/dl Medical Emergencies . Who to Call and When: Medical Emergencies: If at any time you feel your situation is an emergency, please call 911 immediately. . Non-Emergent Contact Non-Emergency issues call your: Primary Care Provider, Specialist Call Non-Emergent contact if: your pain is not controlled, your pain is worsening . . "Provider Documentation" section prepared by Donald Sommers. VTE Core Measure Inpt VTE Proph given/why not?: SCD's [place] Drug Monitoring Program Search Results: no issues identified
[2016-11-07 15:19] VITALS: BP 131/69; PULSE 50; TEMP 36.6; O2SAT 98
[2016-11-07] MEDS ORDERED: SIMVASTATIN 20 MG TAB PO SCH (21:00)
[2016-11-08] MEDS ORDERED: MAGN30TA4 PO (07:23)
[2016-11-08] MEDS ORDERED: [UNRECOGNIZED DRUG - CODE] PO (07:23)
[2016-11-08] MEDS ORDERED: LISINOPRIL 40 MG TAB PO SCH (09:00)
[2016-11-08] MEDS ORDERED: LANSOPRAZOLE SOLUTAB 30 MG PO SCH (09:00)
[2016-11-08] MEDS ORDERED: ASPIRIN 325 MG ECTAB PO SCH (09:00)
[2016-11-08] MEDS ORDERED: CALCIUM 600MG + VIT D 400 IU TAB PO SCH (09:00)
[2016-11-08] MEDS ORDERED: OMEGA-3 (PURIFIED FISH OIL) 1 GM CAP PO SCH (09:00)
[2016-11-08] MEDS ORDERED: METHIMAZOLE 5 MG TAB PO SCH (09:00)
[2016-11-08] MEDS ORDERED: AMLODIPINE BESYLATE 5 MG TAB PO SCH (09:00)
[2016-11-08] MEDS ORDERED: FLUOXETINE HCL 20 MG CAP PO SCH (09:00)
[2016-11-08] MEDS ORDERED: MULTIVITAMIN TAB PO SCH (09:00)
[2016-11-08] MEDS ORDERED: PANTOprazole SOD 40 MG TAB PO SCH (09:00)
--- NOTE | 2016-11-11 16:39 | Progress Note ---
Progress Note Date of Service Nov 07, 2016. Progress Note History of Present Illness Source: patient, family, clinic records, hospital records Mr. Wilkerson is a 76-year-old white male who presents with acute increase in back pain. Patient has been seen at the [facility] pain service for the last 2 months regarding spinal stenosis. He has been treated with hydrocodone 7.5/ 325mg by his PCP. Our office initiated the patient on gabapentin and has been slowly titrating upward. Patient is currently on gabapentin 600 mg 3 times daily. He does admit to moderate side effects of unsteady gait and dizziness which is mildly decreasing with time. Patient states that the gabapentin was previously providing 50% pain relief which was satisfactory to the patient. Over the last several days the gabapentin has not been efficacious and he went to the emergency department for further treatment. Patient does complain of left-sided low back pain with radicular pain along the left posterior leg which will extend to the mid calf. He describes an aching, stabbing, burning pain. Pain is rated 5/10 at its best and 9/10 at its worst. He denies any bowel/ bladder incontinence, saddle anesthesia, foot drop, leg weakness, or falls. Patient had a left SIJ injection by Dr. Luna on 11/01. Had some relief for some time but on morning of 11/07 had severe, debilitating pain. Was requiring IV narcotics, could not ambulate out of the ED. Was brought in for observation and pain management consultation. Past Medical/Surgical History HTN Anxiety/Depression Hyperlipidemia Hyperthyroidism GERD Medical Problems: (1) Herniated disc Status: Chronic Family History Diabetes mellitus Heart disease Social History Smoking Status: Former Smoker Marital Status: Occupational Status: retired Multi-Drug Resistant Organisms History of MDRO: No Allergies Coded Allergies: No Known Allergies (Unverified , 11/08/16) Home Medications Scheduled Amlodipine (Norvasc), 5 MG PO DAILY Calcium/Vitamin D (Os-Clarence 500 Plus D), 1 TAB PO DAILY Dutasteride-Tamsulosin Hcl (Yancy), 1 CAP PO DAILY Fluoxetine (Prozac), 40 MG PO DAILY Gabapentin (Neurontin), 600 MG PO TID Lansoprazole (Prevacid), 30 MG PO DAILY Lisinopril (Zestril), 40 MG PO DAILY Lorazepam (Ativan), 0.5 MG PO TID Magnesium (Cvs Magnesium), 300 MG PO DAILY Methimazole (Methimazole ), 5 MG PO DAILY Multivitamin (Multivitamin), 1 TAB PO DAILY Simvastatin (Zocor), 20 MG PO HS Vitamins C & E (Vitamin C), 1 TAB PO DAILY Scheduled PRN Hydrocodone/Acetaminophen 7.5MG/325MG ([place] 7.5MG/325MG), 1 TAB PO Q6H PRN for Pain Miscellaneous Medications Aspirin (Aspirin Ec), 325 MG PO Fish Oil ([place]-3), 1 CAP PO Review of Systems Constitutional: No chills, No fatigue, No fever, No problem reported, No sweats , No weakness, No weight loss Eyes: No diplopia, No discharge, No eye pain, No problem reported, No redness, No worsening of vision ENT: No dental problems, No hearing loss, No nasal symptoms, No problem reported, No sore throat, No tinnitus, No trouble swallowing, No unusual epistaxis Respiratory: No cough, No dyspnea at rest, No dyspnea on exertion, No hemoptysis, No problem reported, No shortness of breath, No sputum, No wheezing Cardiovascular: No PND, No chest pain, No claudication, No edema, No orthopnea , No palpitations, No problem reported Abdomen: No GI bleeding, No constipation, No diarrhea, No nausea, No pain, No problem reported, No vomiting Musculoskeletal: + joint pain (low back, radiates into legs), No calf pain, No muscle pain, No problem reported, No swelling Genitourinary - Male: No dysuria, No hematuria, No urinary frequency, No urinary urgency Neurologic: No balance problems, No memory loss, No numbness/tingling, No paralysis, No problem reported, No vertigo, No weakness Psychiatric: No anhedonism, No anxiety, No depression symptoms, No insomnia, No problem reported, No substance abuse Endocrine: No excessive thirst, No excessive urination, No fatigue, No problem reported Hematologic / Lymphatic: No abnormal bleeding/bruising, No clotting problems, No night sweats, No problem reported, No swollen lymph nodes Integumentary: No bleeding, No color change, No itch, No new/changing skin lesions, No problem reported, No rash Allergic / Immunologic: No environmental allergies, No food allergies, No frequent infections, No hives, No pet sensitivities, No poor healing, No problem reported, No prolonged convalescence, No seasonal allergies Physical Ex - H&P Physical Exam Vital Signs Date Time Temp Pulse Resp B/P Pulse Ox O2 Delivery O2 Flow Rate FiO2 11/08/16 07:12 54 11/08/16 07:12 36.7 59 18 172/95 100 Room Air General Appearance: WD/WN, no apparent distress Head: normocephalic, atraumatic Eyes: normal inspection, EOMI, sclerae normal ENT: normal ENT inspection, hearing grossly normal, pharynx normal Neck: supple, no adenopathy, no JVD, trachea midline Respiratory/Chest: chest non-tender, lungs clear, normal breath sounds, no respiratory distress, no accessory muscle use Cardiovascular: regular rate, rhythm, no edema, no gallop, no JVD, no murmur, normal peripheral pulses Abdomen/GI: normal bowel sounds, non tender, soft, no organomegaly Back: + decreased range of motion, + paravertebral tenderness Extremities/Musculoskelatal: normal inspection, no calf tenderness, normal capillary refill, no pedal edema, normal range of motion, pelvis stable 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 History of squamous cell carcinoma of the chest. Difficulty in ambulation. TECHNIQUE: Sagittal and axial T1, T2 and STIR images were obtained. COMPARISON STUDY: 03/21/2015 OBSERVATIONS: There are innumerable right renal cysts, enlarging the right kidney which measures 16 cm in length. A few left renal cysts are also visualized. There is a nonspecific 8 mm focus of diminished T1 signal within the L4 vertebra, L1-2: There is a circumferential disc bulge present. There is mild spinal stenosis. There is no significant foraminal stenosis L2-3: There is a small right posterior lateral disc protrusion. This remain similar to the preceding study. This deforms the right anterolateral aspect the thecal sac. There is mild spinal canal narrowing at this level. L3-4: There is a circumferential disc bulge with mild spinal stenosis. There is no significant foraminal narrowing. L4-5: There is a small central disc protrusion which deforms the anterior aspect the thecal sac. There is mild spinal canal narrowing. There is no significant foraminal narrowing L5-S1: There is a circumferential disc bulge present. There is mild spinal canal narrowing. The conus medullaris and cauda equina appear normal. IMPRESSION: 1. Nonspecific 8 mm focus of marrow replacement involving the L4 vertebra, similar to the preceding study. While nonspecific, the stability favors a benign process. 2. Innumerable right renal cysts 3. Multilevel spondylitic changes with mild multilevel spinal stenosis 4. Stable small right posterior lateral disc protrusion at the L2-3 level 5. Stable central disc protrusion at the L4-5 level. Impression - H&P Impression Assessment and Plan 76 yo male with long standing history of lumbago and sacroiliitis, presents with increase back pain, intractable - Intractable low back pain associated with sacroiliitis, degenerative disc disease observe on medical floor, use [place] 7.5/325mg PRN, Gabapentin consult Pain Management for recommendations - HTN, hyperlipidemia, Anxiety, Depression, Hyperthyroidism: all chronic and stable, continue home medications Level of Care Med/Surg Resuscitation Status FULL RESUSCITATION VTE Prophylaxis Risk Level: Low
--- NOTE | 2016-11-11 16:44 | Discharge Summary ---
Discharge Summary Date of Service Nov 11, 2016. Discharge Summary Admission Date: Nov 07, 2016 at 10:13 Discharge Date: Nov 07, 2016 Discharge Disposition: Home Principal Diagnosis: Intractable back pain Problems/Secondary Diagnoses: Sacroiliitis Procedures: MRI lumbar spine Consultations: Pain Management Medication Reconciliation New Medications: Hydrocodone/Acetaminophen 7.5MG/325MG ([place] 7.5MG/325MG) Tab 1 TAB PO Q6H PRN for Pain, #10 TAB PRN PAIN Continued Medications: Amlodipine (Norvasc) 5 Mg Tab 5 MG PO DAILY, TAB Aspirin (Aspirin Ec) 325 Mg Tab 325 MG PO Calcium/Vitamin D (Os-Clarence 500 Plus D) Tab 1 TAB PO DAILY, TAB Dutasteride-Tamsulosin Hcl (Yancy) 1 Cap Cap 1 CAP PO DAILY for 30 Days, #30 CAP 11 Refills Fish Oil ([place]-3) 1 Ea Cap 1 CAP PO, CAP Fluoxetine (Prozac) 40 Mg Cap 40 MG PO DAILY, CAP Gabapentin (Neurontin) 300 Mg Cap 600 MG PO TID, CAP Lansoprazole (Prevacid) 30 Mg Capcr 30 MG PO DAILY, CAP Lisinopril (Zestril) 40 Mg Tab 40 MG PO DAILY, TAB Lorazepam (Ativan) 0.5 Mg Tab 0.5 MG PO TID, TAB Methimazole (Methimazole ) 5 Mg Tab 5 MG PO DAILY Multivitamin (Multivitamin) Tab 1 TAB PO DAILY, TAB Simvastatin (Zocor) 20 Mg Tab 20 MG PO HS for 30 Days, #30 TAB 5 Refills Vitamins C & E (Vitamin C) 1 Cap Cap 1 TAB PO DAILY Discontinued Medications: Hydrocodone/Acetaminophen 5MG/325MG ([place] 5MG/325MG) Tab 2 TABS PO QHS PRN for Pain for 30 Days, #90 TAB PRN PAIN Discharge Exam Patient feeling well enough to go home. Pain controlled. Admitted to some anxiety. Review of Systems: Constitutional: No chills, No fatigue, No fever, No problem reported, No sweats, No weakness, No weight loss Eyes: No diplopia, No discharge, No eye pain, No problem reported, No redness, No worsening of vision ENT: No dental problems, No hearing loss, No nasal symptoms, No problem reported, No sore throat, No tinnitus, No trouble swallowing, No unusual epistaxis Respiratory: No cough, No dyspnea at rest, No dyspnea on exertion, No hemoptysis, No problem reported, No shortness of breath, No sputum, No wheezing Cardiovascular: No PND, No chest pain, No claudication, No edema, No orthopnea, No palpitations, No problem reported Abdomen: No GI bleeding, No constipation, No diarrhea, No nausea, No pain, No problem reported, No vomiting Musculoskeletal: + joint pain (low back pain), No calf pain, No muscle pain , No problem reported, No swelling Genitourinary - Male: No dysuria, No hematuria, No urinary frequency, No urinary urgency Neurologic: No balance problems, No memory loss, No numbness/tingling, No paralysis, No problem reported, No vertigo, No weakness Psychiatric: + anxiety, No anhedonism, No depression symptoms, No insomnia, No problem reported, No substance abuse Endocrine: No excessive thirst, No excessive urination, No fatigue, No problem reported Hematologic / Lymphatic: No abnormal bleeding/bruising, No clotting problems , No night sweats, No problem reported, No swollen lymph nodes Integumentary: No bleeding, No color change, No itch, No new/changing skin lesions, No problem reported, No rash Physical Exam: General Appearance: WD/WN, no apparent distress Eyes: normal inspection, EOMI, sclerae normal ENT: normal ENT inspection, hearing grossly normal, pharynx normal Neck: supple, no adenopathy, no JVD, trachea midline Respiratory/Chest: chest non-tender, lungs clear, normal breath sounds, no respiratory distress, no accessory muscle use Cardiovascular: regular rate, rhythm, no edema, no gallop, no JVD, no murmur , normal peripheral pulses Abdomen / GI: normal bowel sounds, non tender, soft, no organomegaly Extremities: normal inspection, no calf tenderness, normal capillary refill , no pedal edema, normal range of motion 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, no motor/sensory deficits , alert, normal mood/affect, normal reflexes, oriented x 3 Skin: normal color, warm/dry, no rash Hospital Course 76 yo male with long standing history of lumbago and sacroiliitis, presents with increase back pain, intractable - Intractable low back pain associated with sacroiliitis, degenerative disc disease observe on medical floor, use [place] 7.5/325mg PRN, Gabapentin consult Pain Management for recommendations: will follow up for injection on 11/08 - HTN, hyperlipidemia, Anxiety, Depression, Hyperthyroidism: all chronic and stable, continue home medications Total Time Spent: Less than 30 minutes This includes examination of the patient, discharge planning, medication reconciliation, and communication with other providers. Discharge Instructions Please refer to the electronic Patient Visit Report (Discharge Instructions) for additional information. Follow-Up Pain Management tomorrow
[2016-12-31] MEDS ORDERED: NORT25CA PO (08:39)
[2017-05-31] MEDS ORDERED: FURO-85 PO (14:22)
[2017-05-31] MEDS ORDERED: DOXA2TAB PO (14:22)
== END 2016-11-07 15:30 | disposition home or self-care (01) ==
LOC: ENRESERVDT → ENRESERVTM → C.EDB 05:54 → C.MSN 10:13
PROVIDERS: ADMIT Internal Medicine; ATTEND Internal Medicine
DX: M54.5 Low back pain (principal); Z83.3 Family history of diabetes mellitus; Z82.49 Family history of ischemic heart disease and other diseases of the circulatory system; Z87.891 Personal history of nicotine dependence

== ENCOUNTER 2016-11-08 07:01 | Emergency (ER) | payer BC ==
[~2016-11-08] VITALS: Ht 172.7 cm; Wt 74.1 kg
[~2016-11-08 07:01] MED LIST changes: +AMLO-110 PO; +HYDR-3983 PO; -HYDR-5688 PO; -LISI1TAB3 PO; +LISI40TA PO; -RXC/5 PO
[2016-11-08] MEDS ORDERED: ONDANSETRON 4MG OD TAB PO STA (07:05)
[2016-11-08] MEDS ORDERED: HYDROmorphone INJ 2 MG/ML SYR/VIAL IM STA (07:05)
[2016-11-08 07:12] VITALS: TEMP 36.7; Ht 172.7 cm; Wt 74.1 kg
--- NOTE | 2016-11-08 07:14 | EMERGENCY ROOM VISIT NOTE ---
History Report prepared by Abimael: Tyler Crutis Under the Supervision of: Dr. Jerry Fuentes M.D. First contact with patient: 07:02 Stated Complaint: BACK PAIN/PANIC ATTACK History of Present Illness The patient is a 76 year old male with a history of lumbar disease who presents to the Emergency Room with complaints of persistent severe lower back pain. The patient was in the ED yesterday for severe lower back pain. He was evaluated by the hospitalist service and ultimately discharged by them. The patient is here again today for another flare up of his back pain and radiation to his right leg. He continues to deny weakness or numbness of the lower extremities. The patient has an appointment with pain management at 0920 today. He was given 8 mg Morphine in the ambulance en route to the ED. Source of History: patient Onset: today Position: back (lower) Symptom Intensity: severe Timing: other (persistent) Associated Symptoms: No numbness, No weakness Review of Systems See HPI for pertinent positives & negatives. A total of 10 systems reviewed and were otherwise negative. Past Medical & Surgical Medical Problems: (1) Herniated disc (2) Intractable low back pain (3) Lumbago Family History Diabetes mellitus Heart disease Social History Smoking Status: Former Smoker Marital Status: Housing Status: lives with family Occupation Status: retired Current/Historical Medications Scheduled Amlodipine (Norvasc), 5 MG PO DAILY Calcium/Vitamin D (Os-Clarence 500 Plus D), 1 TAB PO DAILY Dutasteride-Tamsulosin Hcl ([place]ancy), 1 CAP PO DAILY Fluoxetine (Prozac), 40 MG PO DAILY Gabapentin (Neurontin), 600 MG PO TID Lansoprazole (Prevacid), 30 MG PO DAILY Lisinopril (Zestril), 40 MG PO DAILY Lorazepam (Ativan), 0.5 MG PO TID Magnesium ([employer] Magnesium), 300 MG PO DAILY Methimazole (Methimazole ), 5 MG PO DAILY Multivitamin (Multivitamin), 1 TAB PO DAILY Simvastatin (Zocor), 20 MG PO HS Vitamins C & E (Vitamin C), 1 TAB PO DAILY Scheduled PRN Hydrocodone/Acetaminophen 7.5MG/325MG ([place] 7.5MG/325MG), 1 TAB PO Q6H PRN for Pain Miscellaneous Medications Aspirin (Aspirin Ec), 325 MG PO Fish Oil ([place]-3), 1 CAP PO Allergies Coded Allergies: No Known Allergies (Unverified , 11/08/16) Physical Exam Vital Signs Date Time Temp Pulse Resp B/P Pulse Ox O2 Delivery O2 Flow Rate FiO2 11/08/16 08:00 60 20 153/82 97 Room Air 11/08/16 07:12 54 11/08/16 07:12 36.7 59 18 172/95 100 Room Air Physical Exam GENERAL: Patient is a healthy-appearing well-nourished HEAD: Normocephalic atraumatic EYES: Ocular movements intact pupils equal and react to light OROPHARYNX mucous membranes are moist no exudates present no erythema or edema present NECK: Supple no nuchal rigidity CHEST: Good equal expansion LUNGS: Clear and equal to auscultation CARDIAC: Normal S1 and S2 ABDOMEN: Soft nontender no guarding BACK: No CVA tenderness EXTREMITIES: No pain upon palpation normal muscle strength in all groups no clubbing cyanosis or edema NEURO: Patient is following commands is answering questions appropriately. Alert and oriented x3 Cranial Nerves 2-12 grossly intact Medical Decision & Procedures Medications Administered Medications (Trade) Dose Ordered Sig/Obed Route Start Time Stop Time Status Last Admin Dose Admin Hydromorphone HCl (Dilaudid Inj) 2 mg NOW STAT IM 11/08/16 07:05 11/08/16 07:06 DC 11/08/16 07:23 2 MG Ondansetron HCl (Zofran Odt) 4 mg NOW STAT PO 11/08/16 07:05 11/08/16 07:06 DC 11/08/16 07:23 4 MG Diazepam (Valium Tab) 5 mg NOW STAT PO 11/08/16 07:54 11/08/16 07:55 DC 11/08/16 07:58 5 MG ED Course 0704: Past medical records reviewed. The patient was evaluated in room A12b. A complete history and physical examination was performed. 0705: Zofran Odt 4 mg PO, Dilaudid 2 mg IM. 0754: Valium 5 mg PO. 0815: Reassessed the patient. He verbalized understanding and agreement of the plan. The patient is ready for discharge. Medical Decision Differential diagnosis: Etiologies such as musculoskeletal, disc herniation, fracture, aortic disease, metastatic disease, cord compression, discitis, infection, renal colic, gastrointestinal, acute exacerbation of chronic back pain, sciatica, cauda equina, as well as others were entertained. This is a 76-year-old male who returns back to emergency department for severe back pain. The patient has an appointment at pain management at 920 which we confirmed. He was given 2 mg of Dilaudid IM. Repeat examination revealed improvement patient's symptoms. The patient was given Valium prior to his appointment. He was discharged to pain management. Patient and are in agreement with treatment plan. Impression Primary Impression: Back pain Scribe Attestation The scribe's documentation has been prepared under my direction and personally reviewed by me in its entirety. I confirm that the note above accurately reflects all work, treatment, procedures, and medical decision making performed by me. Departure Information Dispostion Home / Self-Care Referrals Harish Tran M.D. (PCP) Forms HOME CARE DOCUMENTATION FORM, IMPORTANT VISIT INFORMATION, School Instructions, Work Instructions Patient Instructions Basics Back Healthy Spine, ED Back Care Tips, ED Sprain Strain Lumbar, My [facility] Additional Instructions Go directly to pain management You have been examined and treated today on an emergency basis only. This is not a substitute for, or an effort to provide, complete comprehensive medical care. It is impossible to recognize and treat all injuries or illnesses in a single emergency department visit. It is therefore important that you follow up closely with Dr Tran. Call as soon as possible for an appointment. Thank you for your time and consideration. I look forward to speaking with you again soon. Please don't hesitate to call us if you have any questions. Problem Qualifiers Primary Impression: Back pain Back pain location: low back pain Chronicity: acute Back pain laterality: unspecified Sciatica presence: without sciatica Qualified Codes: M54.5 - Low back pain
[2016-11-08] MEDS ORDERED: [UNRECOGNIZED DRUG - CODE] PO (07:23)
[2016-11-08] MEDS ORDERED: MAGN30TA4 PO (07:23)
--- NOTE | 2016-11-08 07:47 | History and Physical ---
History & Physical Date & Time of Service: Nov 07, 2016 at 10:00 Chief Complaint: Back Pain/Panic Attack Primary Care Physician: Harish Tran M.D. History of Present Illness Source: patient, family, clinic records, hospital records Mr. Wilkerson is a 76-year-old white male who presents with acute increase in back pain. Patient has been seen at the [facility] pain service for the last 2 months regarding spinal stenosis. He has been treated with hydrocodone 7.5/ 325mg by his PCP. Our office initiated the patient on gabapentin and has been slowly titrating upward. Patient is currently on gabapentin 600 mg 3 times daily. He does admit to moderate side effects of unsteady gait and dizziness which is mildly decreasing with time. Patient states that the gabapentin was previously providing 50% pain relief which was satisfactory to the patient. Over the last several days the gabapentin has not been efficacious and he went to the emergency department for further treatment. Patient does complain of left-sided low back pain with radicular pain along the left posterior leg which will extend to the mid calf. He describes an aching, stabbing, burning pain. Pain is rated 5/10 at its best and 9/10 at its worst. He denies any bowel/ bladder incontinence, saddle anesthesia, foot drop, leg weakness, or falls. Patient had a left SIJ injection by Dr. Luna on 11/01. Had some relief for some time but on morning of 11/07 had severe, debilitating pain. Was requiring IV narcotics, could not ambulate out of the ED. Was brought in for observation and pain management consultation. Past Medical/Surgical History HTN Anxiety/Depression Hyperlipidemia Hyperthyroidism GERD Medical Problems: (1) Herniated disc Status: Chronic Family History Diabetes mellitus Heart disease Social History Smoking Status: Former Smoker Marital Status: Occupational Status: retired Multi-Drug Resistant Organisms History of MDRO: No Allergies Coded Allergies: No Known Allergies (Unverified , 11/08/16) Home Medications Scheduled Amlodipine (Norvasc), 5 MG PO DAILY Calcium/Vitamin D (Os-Clarence 500 Plus D), 1 TAB PO DAILY Dutasteride-Tamsulosin Hcl (Yancy), 1 CAP PO DAILY Fluoxetine (Prozac), 40 MG PO DAILY Gabapentin (Neurontin), 600 MG PO TID Lansoprazole (Prevacid), 30 MG PO DAILY Lisinopril (Zestril), 40 MG PO DAILY Lorazepam (Ativan), 0.5 MG PO TID Magnesium (Cvs Magnesium), 300 MG PO DAILY Methimazole (Methimazole ), 5 MG PO DAILY Multivitamin (Multivitamin), 1 TAB PO DAILY Simvastatin (Zocor), 20 MG PO HS Vitamins C & E (Vitamin C), 1 TAB PO DAILY Scheduled PRN Hydrocodone/Acetaminophen 7.5MG/325MG ([place] 7.5MG/325MG), 1 TAB PO Q6H PRN for Pain Miscellaneous Medications Aspirin (Aspirin Ec), 325 MG PO Fish Oil ([place]-3), 1 CAP PO Review of Systems Constitutional: No chills, No fatigue, No fever, No problem reported, No sweats , No weakness, No weight loss Eyes: No diplopia, No discharge, No eye pain, No problem reported, No redness, No worsening of vision ENT: No dental problems, No hearing loss, No nasal symptoms, No problem reported, No sore throat, No tinnitus, No trouble swallowing, No unusual epistaxis Respiratory: No cough, No dyspnea at rest, No dyspnea on exertion, No hemoptysis, No problem reported, No shortness of breath, No sputum, No wheezing Cardiovascular: No PND, No chest pain, No claudication, No edema, No orthopnea , No palpitations, No problem reported Abdomen: No GI bleeding, No constipation, No diarrhea, No nausea, No pain, No problem reported, No vomiting Musculoskeletal: + joint pain (low back, radiates into legs), No calf pain, No muscle pain, No problem reported, No swelling Genitourinary - Male: No dysuria, No hematuria, No urinary frequency, No urinary urgency Neurologic: No balance problems, No memory loss, No numbness/tingling, No paralysis, No problem reported, No vertigo, No weakness Psychiatric: No anhedonism, No anxiety, No depression symptoms, No insomnia, No problem reported, No substance abuse Endocrine: No excessive thirst, No excessive urination, No fatigue, No problem reported Hematologic / Lymphatic: No abnormal bleeding/bruising, No clotting problems, No night sweats, No problem reported, No swollen lymph nodes Integumentary: No bleeding, No color change, No itch, No new/changing skin lesions, No problem reported, No rash Allergic / Immunologic: No environmental allergies, No food allergies, No frequent infections, No hives, No pet sensitivities, No poor healing, No problem reported, No prolonged convalescence, No seasonal allergies Physical Exam Vital Signs Date Time Temp Pulse Resp B/P Pulse Ox O2 Delivery O2 Flow Rate FiO2 11/08/16 07:12 54 11/08/16 07:12 36.7 59 18 172/95 100 Room Air General Appearance: WD/WN, no apparent distress Head: normocephalic, atraumatic Eyes: normal inspection, EOMI, sclerae normal ENT: normal ENT inspection, hearing grossly normal, pharynx normal Neck: supple, no adenopathy, no JVD, trachea midline Respiratory/Chest: chest non-tender, lungs clear, normal breath sounds, no respiratory distress, no accessory muscle use Cardiovascular: regular rate, rhythm, no edema, no gallop, no JVD, no murmur, normal peripheral pulses Abdomen/GI: normal bowel sounds, non tender, soft, no organomegaly Back: + decreased range of motion, + paravertebral tenderness Extremities/Musculoskelatal: normal inspection, no calf tenderness, normal capillary refill, no pedal edema, normal range of motion, pelvis stable 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 History of squamous cell carcinoma of the chest. Difficulty in ambulation. TECHNIQUE: Sagittal and axial T1, T2 and STIR images were obtained. COMPARISON STUDY: 03/21/2015 OBSERVATIONS: There are innumerable right renal cysts, enlarging the right kidney which measures 16 cm in length. A few left renal cysts are also visualized. There is a nonspecific 8 mm focus of diminished T1 signal within the L4 vertebra, L1-2: There is a circumferential disc bulge present. There is mild spinal stenosis. There is no significant foraminal stenosis L2-3: There is a small right posterior lateral disc protrusion. This remain similar to the preceding study. This deforms the right anterolateral aspect the thecal sac. There is mild spinal canal narrowing at this level. L3-4: There is a circumferential disc bulge with mild spinal stenosis. There is no significant foraminal narrowing. L4-5: There is a small central disc protrusion which deforms the anterior aspect the thecal sac. There is mild spinal canal narrowing. There is no significant foraminal narrowing L5-S1: There is a circumferential disc bulge present. There is mild spinal canal narrowing. The conus medullaris and cauda equina appear normal. IMPRESSION: 1. Nonspecific 8 mm focus of marrow replacement involving the L4 vertebra, similar to the preceding study. While nonspecific, the stability favors a benign process. 2. Innumerable right renal cysts 3. Multilevel spondylitic changes with mild multilevel spinal stenosis 4. Stable small right posterior lateral disc protrusion at the L2-3 level 5. Stable central disc protrusion at the L4-5 level. 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
[2016-11-08] MEDS ORDERED: DIAZEPAM 5MG TAB PO STA (07:54)
[2016-11-08 08:00] VITALS: BP 153/82; PULSE 60; O2SAT 97
--- NOTE | 2016-11-11 16:40 | Discharge Summary ---
Discharge Summary Date of Service Nov 07, 2016. Discharge Summary Admission Date: Nov 07, 2016 Discharge Date: Nov 07, 2016 Discharge Disposition: Home Principal Diagnosis: Intractable low back pain, sacroillitis, DDD Problems/Secondary Diagnoses: HTN Hyperlipidemia Anxiety Hyperthyroidism Procedures: MRI lumbar spine Consultations: Pain management Hospital Course 76 yo male with long standing history of lumbago and sacroiliitis, presents with increase back pain, intractable - Intractable low back pain associated with sacroiliitis, degenerative disc disease observe on medical floor, use [place] 7.5/325mg PRN, Gabapentin consult Pain Management for recommendations - HTN, hyperlipidemia, Anxiety, Depression, Hyperthyroidism: all chronic and stable, continue home medications Total Time Spent: Less than 30 minutes This includes examination of the patient, discharge planning, medication reconciliation, and communication with other providers. Discharge Instructions Please refer to the electronic Patient Visit Report (Discharge Instructions) for additional information.
[2016-12-31] MEDS ORDERED: NORT25CA PO (08:39)
[2017-05-31] MEDS ORDERED: DOXA2TAB PO (14:22)
[2017-05-31] MEDS ORDERED: FURO-85 PO (14:22)
== END 2016-11-08 08:24 | disposition home or self-care (01) ==
LOC: C.EDA 07:01 → EDBD 07:01 → C.EDA 08:24
DX: M54.5 Low back pain (principal); I10 Essential (primary) hypertension; K21.9 Gastro-esophageal reflux disease without esophagitis; F41.9 Anxiety disorder, unspecified; F32.9 Major depressive disorder, single episode, unspecified; E78.5 Hyperlipidemia, unspecified; E05.90 Thyrotoxicosis, unspecified without thyrotoxic crisis or storm; Z87.891 Personal history of nicotine dependence

== ENCOUNTER 2016-11-09 10:47 | Emergency (ER) | payer BC ==
[~2016-11-09] VITALS: Ht 172.7 cm; Wt 73.3 kg
[~2016-11-09 10:47] MED LIST changes: -MAGNESIUM 300 MG PO; +[UNRECOGNIZED DRUG - CODE] PO
[2016-11-09 10:52] VITALS: TEMP 37; Ht 172.7 cm; Wt 73.3 kg
[2016-11-09] MEDS ORDERED: ONDANSETRON INJ 2 MG/ML 2 ML VIAL IV STA (12:41)
--- NOTE | 2016-11-09 12:46 | EMERGENCY ROOM VISIT NOTE ---
History Report prepared by Abimael: Chelsey Hays Under the Supervision of: Dr. Darin Parisi D.O. First contact with patient: 12:30 Chief Complaint: BACK PAIN Stated Complaint: BACK PAIN History of Present Illness The patient is a 76 year old male who presents to the Emergency Room with complaints of worsening back pain beginning a few days prior to arrival. The patient states that he has 5 herniated disc in his back with pain that radiates down his left leg. Due to the severity of his back pain today he experienced an intense panic attack this morning. The patient has had this back pain for the past few years is followed by pain management. Yesterday had an epidural and MRI done. He states that the epidural has not helped to subside the pain. Patient was given Morphine in the ambulance will en route and states that helped to alleviate his pain. He does not recently he is having difficulty urinating. He denies fever, rash, redness or swelling to back. The patient has been seen by Dr. Isaacs's office and was told surgery is not an option for his condition. He is prescribed Gabapentin for pain. Source of History: patient Onset: few days [employer] Position: back Timing: worsening Associated Symptoms: + urinary symptoms, No fevers, No rash Review of Systems See HPI for pertinent positives & negatives. A total of 10 systems reviewed and were otherwise negative. Past Medical & Surgical Medical Problems: (1) Herniated disc (2) Intractable low back pain (3) Lumbago Family History Diabetes mellitus Heart disease Social History Smoking Status: Never Smoker Marital Status: Housing Status: lives with family Occupation Status: retired Current/Historical Medications Scheduled Amlodipine (Norvasc), 5 MG PO DAILY Calcium/Vitamin D (Os-Clarence 500 Plus D), 1 TAB PO DAILY Dutasteride-Tamsulosin Hcl (Yancy), 1 CAP PO DAILY Fluoxetine (Prozac), 40 MG PO DAILY Gabapentin (Neurontin), 600 MG PO TID Lansoprazole (Prevacid), 30 MG PO DAILY Lisinopril (Zestril), 40 MG PO DAILY Lorazepam (Ativan), 0.5 MG PO TID Magnesium (Cvs Magnesium), 300 MG PO DAILY Methimazole (Methimazole ), 5 MG PO DAILY Multivitamin (Multivitamin), 1 TAB PO DAILY Simvastatin (Zocor), 20 MG PO HS Vitamins C & E (Vitamin C), 1 TAB PO DAILY Scheduled PRN Hydrocodone/Acetaminophen 7.5MG/325MG ([place] 7.5MG/325MG), 1 TAB PO Q6H PRN for Pain Miscellaneous Medications Aspirin (Aspirin Ec), 325 MG PO Fish Oil (Camilla-3), 1 CAP PO Allergies Coded Allergies: No Known Allergies (Unverified , 11/09/16) Physical Exam Vital Signs Date Time Temp Pulse Resp B/P Pulse Ox O2 Delivery O2 Flow Rate FiO2 11/09/16 15:52 59 18 144/65 98 Room Air 11/09/16 14:22 68 11/09/16 14:16 61 18 145/69 97 Room Air 11/09/16 13:05 76 18 167/77 97 Room Air 11/09/16 11:49 57 18 186/91 97 Room Air 11/09/16 10:59 56 11/09/16 10:52 37.0 59 18 197/109 100 Room Air Physical Exam GENERAL: Patient is awake, alert, and in no acute distress. Patient is resting comfortably and showing no signs of anxiety EYES: The conjunctivae are clear. The pupils are round and reactive. EARS, NOSE, MOUTH AND THROAT: The nose is without any evidence of any deformity. Mucous membranes are moist tongue is midline NECK: The neck is nontender and supple. RESPIRATORY: Normal respiratory effort is noted there is no evidence of wheezing rhonchi or rales CARDIOVASCULAR: Regular rate and rhythm noted there no murmurs rubs or gallops normal S1 normal S2 GASTROINTESTINAL: The abdomen is soft. Bowel sounds are present in all quadrants. Abdomen is nontender BACK: No midline tenderness or or step-off noted range of motion in flexion extension as well as rotation no signs of muscle spasm noted MUSCULOSKELETAL/EXTREMITIES: There is no evidence of gross deformity full range of motion is noted in the hips and shoulders SKIN: There is no obvious evidence of any rash. There are no petechiae, pallor or cyanosis noted. NEUROLOGIC: Patient is awake alert and oriented x3 strength is symmetric patellar reflexes are 1+ bilaterally, Achilles tendon reflexes are 1+ bilaterally, great toes raise symmetrically. Medical Decision & Procedures Laboratory Results 11/09/16 13:19 Red Blood Count 4.15, Mean Corpuscular Volume 92.0, Mean Corpuscular Hemoglobin 31.8, Mean Corpuscular Hemoglobin Concent 34.6, Mean Platelet Volume 9.8, Neutrophils (%) (Auto) 81.2, Lymphocytes (%) (Auto) 11.8, Monocytes (%) (Auto) 6.4, Eosinophils (%) (Auto) 0.2, Basophils (%) (Auto) 0.1, Neutrophils # (Auto) 12.69, Lymphocytes # (Auto) 1.84, Monocytes # (Auto) 1.00, Eosinophils # (Auto) 0.03, Basophils # (Auto) 0.02 11/09/16 13:19 Test 11/09/16 13:19 11/09/16 13:25 White Blood Count 15.63 K/uL (4.8-10.8) Red Blood Count 4.15 M/uL (4.7-6.1) Hemoglobin 13.2 g/dL (14.0-18.0) Hematocrit 38.2 % (42-52) Mean Corpuscular Volume 92.0 fL (80-100) Mean Corpuscular Hemoglobin 31.8 pg (25-34) Mean Corpuscular Hemoglobin Concent 34.6 g/dl (32-36) Platelet Count 183 K/uL (130-400) Mean Platelet Volume 9.8 fL (7.4-10.4) Neutrophils (%) (Auto) 81.2 % Lymphocytes (%) (Auto) 11.8 % Monocytes (%) (Auto) 6.4 % Eosinophils (%) (Auto) 0.2 % Basophils (%) (Auto) 0.1 % Neutrophils # (Auto) 12.69 K/uL (1.4-6.5) Lymphocytes # (Auto) 1.84 K/uL (1.2-3.4) Monocytes # (Auto) 1.00 K/uL (0.11-0.59) Eosinophils # (Auto) 0.03 K/uL (0-0.5) Basophils # (Auto) 0.02 K/uL (0-0.2) RDW Standard Deviation 46.5 fL (36.4-46.3) RDW Coefficient of Variation 13.8 % (11.5-14.5) Immature Granulocyte % (Auto) 0.3 % Immature Granulocyte # (Auto) 0.05 K/uL (0.00-0.02) Prothrombin Time 10.2 SECONDS (9.0-12.0) Prothromb Time International Ratio 1.0 (0.9-1.1) Activated Partial Thromboplast Time 19.0 SECONDS (21.0-31.0) Partial Thromboplastin Ratio 0.7 Anion Gap 5.0 mmol/L (3-11) Est Creatinine Clear Calc Drug Dose 56.1 ml/min Estimated GFR () 75.7 Estimated GFR (Non- 65.3 BUN/Creatinine Ratio 21.9 (10-20) Calcium Level 9.2 mg/dl (8.5-10.1) Total Bilirubin 0.4 mg/dl (0.2-1) Direct Bilirubin < 0.1 mg/dl (0-0.2) Aspartate Amino Transf (AST/SGOT) 27 U/L (15-37) Alanine Aminotransferase (ALT/SGPT) 35 U/L (12-78) Alkaline Phosphatase 82 U/L (45-117) Total Protein 6.5 gm/dl (6.4-8.2) Albumin 3.4 gm/dl (3.4-5.0) Lipase 216 U/L (73-393) Urine Color YELLOW Urine Appearance CLOUDY (CLEAR) Urine pH 8.0 (4.5-7.5) Urine Specific [place] 1.011 (1.000-1.030) Urine Protein NEG (NEG) Urine Glucose (UA) NEG (NEG) Urine Ketones NEG (NEG) Urine Occult Blood NEG (NEG) Urine Nitrite NEG (NEG) Urine Bilirubin NEG (NEG) Urine Urobilinogen NEG (NEG) Urine Leukocyte Esterase NEG (NEG) Urine WBC (Auto) 0 /hpf (0-5) Urine RBC (Auto) 0-4 /hpf (0-4) Urine Hyaline Casts (Auto) 1-5 /lpf (0-5) Urine Epithelial Cells (Auto) 0-5 /lpf (0-5) Urine Bacteria (Auto) NEG (NEG) Laboratory results per my review. Medications Administered Medications (Trade) Dose Ordered Sig/Obed Route Start Time Stop Time Status Last Admin Dose Admin Morphine Sulfate (MoRPHine SULFATE INJ) 4 mg Q15M PRN IV 11/09/16 12:45 11/09/16 16:21 DC 11/09/16 15:57 4 MG Ondansetron HCl (Zofran Inj) 4 mg NOW STAT IV 11/09/16 12:41 11/09/16 12:43 DC 11/09/16 13:01 4 MG ED Course 1237: The patient was evaluated in room B9. A complete history and physical examination were performed. 1241: Zofran Inj 4 mg IV, Morphine Sulfate Inj 4 mg IV. 1519: The patient has a follow up appointment with Dr. Tran Saturday morning. 1556: Upon reevaluation, the patient is hemodynamically stable. I discussed the results and treatment plan with him. He verbalized agreement of the treatment plan. He was discharged home. Medical Decision Differential diagnosis: Etiologies such as musculoskeletal, disc herniation, fracture, aortic disease, metastatic disease, cord compression, discitis, infection, renal colic, gastrointestinal, acute exacerbation of chronic back pain, sciatica, cauda equina, as well as others were entertained. Nursing notes reviewed. The patient is a 76-year-old male who presented to emergency department for an evaluation of back pain. The patient states that he has a history of chronic back pain and this feels similar to back pain he is experiencing the past. He has no focal neurologic deficits. He was able to ambulate without difficulty. He has been seen in our facility multiple times with similar complaints. He denies having any fevers. He recently received a steroid injection for this back pain and states that it did improve his symptoms. He states that he develops very severe anxiety and feels that this makes his back pain worse. He was reevaluated multiple times. He was treated with IV fluids IV pain medicine and IV antiemetics. On subsequent reevaluation he was feeling significantly improved. The patient did have an elevated white blood cell count but I do feel at this time this is secondary to the steroid injection. He does not appear to have any point tenderness over the lumbar spine. The patient was encouraged to rest and avoid any strenuous ectopy. I did review the patient's recent MRI report. He was encouraged to follow-up with his family doctor soon as possible for reevaluation. He was also encouraged to continue all medications as prescribed. Impression Primary Impression: Chronic lower back pain Additional Impression: Anxiety Scribe Attestation The scribe's documentation has been prepared under my direction and personally reviewed by me in its entirety. I confirm that the note above accurately reflects all work, treatment, procedures, and medical decision making performed by me. Departure Information Dispostion Home / Self-Care Referrals Harish Tran M.D. (PCP) Forms HOME CARE DOCUMENTATION FORM, IMPORTANT VISIT INFORMATION Patient Instructions ED Back Pain Acute Chronic, My [facility] Additional Instructions Continue all medications as prescribed. Rest and avoid any strenuous activity. Follow-up with your family doctor as scheduled. Problem Qualifiers Primary Impression: Chronic lower back pain Back pain laterality: bilateral Sciatica presence: unspecified whether sciatica present Qualified Codes: M54.5 - Low back pain; G89.29 - Other chronic pain
[2016-11-09] MEDS: MoRPHine SULFATE 4 MG/ML 1 ML CARP\\VIAL IV PRN ×2 (13:01→15:57)
[2016-11-09 13:27] LABS: BASO % 0.1 %; BASO ABS # 0.02 K/uL (0-0.2); COMPLETE YES; EOS % 0.2 %; HEMATOCRIT 38.2 % (42-52); IG% 0.3 %; LYMPH % 11.8 %; LYMPH ABS # 1.84 K/uL (1.2-3.4); MEAN CORPUSCULAR HEMOGLOBIN 31.8 pg (25-34); MEAN CORPUSCULAR HGB CONC 34.6 g/dl (32-36); MEAN PLATELET VOLUME 9.8 fL (7.4-10.4); MONO % 6.4 %; NEUT % 81.2 %; PLATELET COUNT 183 K/uL (130-400); RED BLOOD COUNT 4.15 M/uL (4.7-6.1); WHITE BLOOD COUNT 15.63 K/uL (4.8-10.8)
[2016-11-09 13:35] LABS: PARTIAL THROMBOPLASTIN RATIO 0.7; PROTHROMBIN TIME (PATIENT) 10.2 SECONDS (9.0-12.0)
[2016-11-09 13:40] LABS: URINE APPEARANCE CLOUDY (CLEAR); URINE BILIRUBIN NEG (NEG); URINE COLOR YELLOW; URINE EPITHELIAL CELL AUTO 0-5 /lpf (0-5); URINE NITRITE NEG (NEG); URINE SPECIFIC GRAVITY 1.011 (1.000-1.030); UROBILINOGEN NEG (NEG)
[2016-11-09 13:44] LABS: ALT/SGPT 35 U/L (12-78); AST/SGOT 27 U/L (15-37); BLOOD UREA NITROGEN 24 mg/dl (7-18); BUN/CREATININE RATIO 21.9 (10-20); CALCIUM 9.2 mg/dl (8.5-10.1); CARBON DIOXIDE 30 mmol/L (21-32); CHLORIDE 109 mmol/L (98-107); GLUCOSE 94 mg/dl (70-99); POTASSIUM 4.2 mmol/L (3.5-5.1); SODIUM 144 mmol/L (136-145)
[2016-11-09 13:50] LABS: ALKALINE PHOSPHATASE 82 U/L (45-117)
[2016-11-09 13:54] LABS: MANUAL MICROSCOPIC REQUIRED? NO; REVIEW REQ? NO
[2016-11-09 15:52] VITALS: BP 144/65; PULSE 59; O2SAT 98
[2016-12-31] MEDS ORDERED: NORT25CA PO (08:39)
[2017-05-31] MEDS ORDERED: DOXA2TAB PO (14:22)
[2017-05-31] MEDS ORDERED: FURO-85 PO (14:22)
== END 2016-11-09 16:15 | disposition home or self-care (01) ==
LOC: EDBD 10:47 → C.EDB 10:48
DX: M54.5 Low back pain (principal); G89.29 Other chronic pain; F41.9 Anxiety disorder, unspecified; Z79.899 Other long term (current) drug therapy

== ENCOUNTER → 2016-12-18 | Outpatient (CLI) | payer BC ==
[~2016-12-18] MED LIST changes: +AMOX875T PO; +DOXA2TAB PO; +FURO-85 PO; +NORT25CA PO; +NORT50CA PO; +TPRSR50 PO
== END | disposition home or self-care (01) ==
LOC: C.LABBFT 09:32
PROVIDERS: ATTEND Internal Medicine
DX: R74.8 Abnormal levels of other serum enzymes (principal)

== ENCOUNTER → 2017-01-08 | Outpatient (CLI) | payer BC ==
[2017-01-08 12:36] LABS: HEMATOCRIT 42.3 % (42-52); MEAN CELL VOLUME 98.4 fL (80-100); MEAN CORPUSCULAR HEMOGLOBIN 31.9 pg (25-34); MEAN CORPUSCULAR HGB CONC 32.4 g/dl (32-36); PLATELET COUNT 193 K/uL (130-400); WHITE BLOOD COUNT 7.89 K/uL (4.8-10.8)
[2017-01-08 12:41] LABS: ALB/GLOB RATIO 1.2 (0.9-2); ALT/SGPT 40 U/L (12-78); AST/SGOT 36 U/L (15-37); BLOOD UREA NITROGEN 24 mg/dl (7-18); CALCIUM 8.9 mg/dl (8.5-10.1); CARBON DIOXIDE 35 mmol/L (21-32); CHLORIDE 107 mmol/L (98-107); GLUCOSE 67 mg/dl (70-99); POTASSIUM 5.1 mmol/L (3.5-5.1); SODIUM 143 mmol/L (136-145)
[2017-01-08 12:43] LABS: ALKALINE PHOSPHATASE 83 U/L (45-117)
[2017-01-08 12:47] LABS: URINE APPEARANCE CLEAR (CLEAR); URINE BILIRUBIN NEG (NEG); URINE COLOR YELLOW; URINE EPITHELIAL CELL AUTO 0-5 /lpf (0-5); URINE NITRITE NEG (NEG); URINE SPECIFIC GRAVITY 1.021 (1.000-1.030); UROBILINOGEN NEG (NEG)
[2017-01-08 12:51] LABS: URINE PROTIEN/CREAT RATIO 0.1 (0-0.2); URINE TOTAL PROTEIN 12.2 mg/dl (0-11.9)
[2017-01-08 12:55] LABS: MANUAL MICROSCOPIC REQUIRED? NO; REVIEW REQ? NO
--- NOTE | 2017-01-15 14:14 | CODING QUERY MEDICAL NECESSITY ---
CQSUPPORTING DIAGNOSIS NEEDED A supporting diagnosis is required for the test/procedure performed on this patient in order for us to be reimbursed by the patient's insurance. Please provide a supporting diagnosis for the following test/procedure listed below next to the test name along with your signature. *If there is no additional diagnosis for this patient that would support the following test/procedure please document that below next to the test/procedure. Test(s)/Procedure(s) that require a supporting diagnosis: DOS 01/08/17 VITAMIN D TEST Provider Signature: Date: Thank you Jennifer Bucio [facility] Information Management Once completed, please kindly fax back to [phone] For questions please call [phone]
== END | disposition home or self-care (01) ==
LOC: C.LABBFT 10:40
PROVIDERS: ATTEND Internal Medicine Nephrology
DX: I12.9 Hypertensive chronic kidney disease with stage 1 through stage 4 chronic kidney disease, or unspecified chronic kidney disease (principal); D64.9 Anemia, unspecified; N18.2 Chronic kidney disease, stage 2 (mild); M48.00 Spinal stenosis, site unspecified; R74.8 Abnormal levels of other serum enzymes; E55.9 Vitamin D deficiency, unspecified

== ENCOUNTER 2017-02-08 12:24 | Emergency (ER) | payer BC ==
[~2017-02-08] VITALS: Ht 172.7 cm; Wt 79.0 kg
[~2017-02-08 12:24] MED LIST changes: -AMOX875T PO; -DOXA2TAB PO; -FURO-85 PO; -NORT50CA PO; -TPRSR50 PO
[2017-02-08 12:33] VITALS: Ht 172.7 cm; Wt 79.0 kg
[2017-02-08] MEDS ORDERED: NORT50CA PO (12:51)
[2017-02-08] MEDS ORDERED: AMPICILLIN/SULBACTAM SOD INJ 3,000 MG in SODIUM CHLORIDE 0.9% 100ML 100 ML IV STA (13:17)
[2017-02-08] MEDS ORDERED: AMOX875T PO (14:24)
--- NOTE | 2017-02-08 14:24 | EMERGENCY ROOM VISIT NOTE ---
ED Visit Note First contact with patient: 12:46 CHIEF COMPLAINT: Cat bite of the left cheek and left hand HISTORY OF PRESENT ILLNESS: This 76-year-old male patient presents to the emergency department after they were bitten on the on the face and left hand by a cat this morning around 8:30 AM. The cat's rabies immunizations are up-to- date. The patient's tetanus shot is up to date. The area has become swollen and bruised, but is not red, warm, or painful. The patient denies fever, chills , nausea, or loss of appetite. Movement of the hand is normal. The patient has taken nothing for pain. REVIEW OF SYSTEMS: A review of systems was performed with positives and pertinent negatives listed in the history of present illness. All other systems were reviewed and are negative. ALLERGIES: None MEDICATIONS: See chart PMH: See chart SOCIAL HISTORY: , lives with . Denies smoking. PHYSICAL EXAM: Vital Signs: Reviewed Nurse's notes, temperature normal, vital signs stable. GENERAL: Pleasant and cooperative, non toxic in appearance, well developed, well nourished. SKIN: There are several scratch and bite bay on the left cheek of the face and the dorsum of the left hand, as well as the tip of the left second finger. There is some ecchymosis and swelling of the left second finger. No erythema, warmth, tenderness to palpation, or significant edema. There is no lymphangitic streaking. LUNGS: Clear to auscultation bilaterally without wheezes, rales or rhonchi. No dullness to percussion. No accessory muscle use. No retractions. HEART: Normal rate, regular rhythm without murmur, ectopy, gallop, or rub. MUSCULOSKELETAL: Range of motion of the left hand is not limited due to the injury. NEURO: Patient was alert and oriented to person place and time. Normal sensation to light and sharp touch. No focal neurologic deficits. EMERGENCY DEPARTMENT COURSE: I examined the patient. There is moderate bruising and swelling of the left second finger tip. No drainage noted. An IV lock was placed and the patient was given 3g IV Unasyn due to significant number of bites to both the face and hands and concern for infection. He was without any side effects. The patient was discharged home in stable condition. Instructed to follow up closely with his PCP and strict return precautions, he verbalized understanding. Problem List Medical Problems: (1) Herniated disc Status: Chronic Current/Historical Medications Scheduled Amlodipine (Norvasc), 5 MG PO DAILY Amoxicillin & Pot Clavulanate (Augmentin 875-125 mg), 1 TAB PO BID Calcium/Vitamin D (Os-Clarence 500 Plus D), 1 TAB PO DAILY Dutasteride-Tamsulosin Hcl (Yancy), 1 CAP PO DAILY Fluoxetine (Prozac), 40 MG PO DAILY Gabapentin (Neurontin), 900 MG PO TID Lansoprazole (Prevacid), 30 MG PO DAILY Lisinopril (Zestril), 40 MG PO DAILY Lorazepam (Ativan), 0.5 MG PO TID Magnesium (Cvs Magnesium), 300 MG PO DAILY Methimazole (Methimazole ), 5 MG PO DAILY Multivitamin (Multivitamin), 1 TAB PO DAILY Nortriptyline (Pamelor), 50 MG PO HS Simvastatin (Zocor), 20 MG PO HS Vitamins C & E (Vitamin C), 1 TAB PO DAILY Scheduled PRN Hydrocodone/Acetaminophen 7.5MG/325MG ([place] 7.5MG/325MG), 1 TAB PO Q6H PRN for Pain Miscellaneous Medications Aspirin (Aspirin Ec), 325 MG PO Fish Oil ([place]-3), 1 CAP PO Allergies Coded Allergies: No Known Allergies (Unverified , 02/08/17) Vital Signs Date Time Temp Pulse Resp B/P Pulse Ox O2 Delivery O2 Flow Rate FiO2 02/08/17 15:03 36.8 58 16 151/71 97 02/08/17 15:01 58 16 151/71 97 Room Air 02/08/17 14:09 58 16 154/77 97 Room Air 02/08/17 12:33 36.8 64 16 142/75 95 Room Air Medications Administered Medications (Trade) Dose Ordered Sig/Obed Route Start Time Stop Time Status Last Admin Dose Admin Ampicillin Sodium/ Sulbactam Sodium/ Sodium Chloride (Unasyn Inj/Nss 100ml) 108 ml @ 200 mls/hr NOW STAT IV 02/08/17 13:17 02/08/17 13:49 DC 02/08/17 13:34 200 MLS/HR Departure Information Impression Primary Impression: Cat bite of left cheek Additional Impression: Cat bite of multiple sites of left hand and fingers Dispostion Home / Self-Care Condition GOOD Prescriptions Amoxicillin & Pot Clavulanate (Augmentin 875-125 mg) 1 Tab Tab 1 TAB PO BID for 10 Days, #20 TAB Prov: Aye Callejas CRNP 02/08/17 Referrals Harish Tran M.D. (PCP) Patient Instructions ED Bite [place], [facility] Additional Instructions Take the Augmentin as prescribed for the full 10 days. This is to prevent an infection from developing. Tylenol or ibuprofen as needed for pain. You may apply warm compresses to the area for comfort. Please soak the left finger in warm salt water 4-5 times a day for the next few days to help prevent infection. Please return to the ER for any worsening symptoms, including increasing pain, redness, swelling, pus drainage, streaking up the arm, facial swelling, shortness of breath, fever/chills/feeling ill, or any other concerns. Problem Qualifiers Primary Impression: Cat bite of left cheek Encounter type: initial encounter Qualified Codes: S01.452A - Open bite of left cheek and temporomandibular area, initial encounter; W55.01XA - Bitten by cat, initial encounter Additional Impression: Cat bite of multiple sites of left hand and fingers Encounter type: initial encounter Qualified Codes: S61.452A - Open bite of left hand, initial encounter; S61.259A - Open bite of unspecified finger without damage to nail, initial encounter; W55.01XA - Bitten by cat, initial encounter
[2017-02-08 15:03] VITALS: BP 151/71; PULSE 58; TEMP 36.8; O2SAT 97
[2017-05-31] MEDS ORDERED: DOXA2TAB PO (14:22)
[2017-05-31] MEDS ORDERED: FURO-85 PO (14:22)
== END 2017-02-08 15:03 | disposition home or self-care (01) ==
LOC: C.EDB 12:25 → C.EDD 15:03
DX: S01.452A Open bite of left cheek and temporomandibular area, initial encounter (principal); S61.258A Open bite of other finger without damage to nail, initial encounter; S61.452A Open bite of left hand, initial encounter; W55.01XA Bitten by cat, initial encounter; Z79.899 Other long term (current) drug therapy

== ENCOUNTER 2017-02-09 09:47 | Inpatient (IN) | payer BC, OTHER ==
[~2017-02-09] VITALS: Ht 172.7 cm; Wt 79.7 kg
[~2017-02-09 09:47] MED LIST changes: +AMOX875T PO; -NORT25CA PO; +NORT50CA PO
[2017-02-09] MEDS ORDERED: SODIUM CHLORIDE 0.9% 1000ML 1,000 ML IV STA (10:27)
--- NOTE | 2017-02-09 10:27 | EMERGENCY ROOM VISIT NOTE ---
History Report prepared by Abimael: Tyler Curtis Under the Supervision of: Dr. Cricket Rojas M.D. First contact with patient: 10:20 Chief Complaint: BITE Stated Complaint: CAT BITE History of Present Illness The patient is a 76 year old male who presents to the Emergency Room with complaints of a worsening infection from a cat bite since yesterday. The patient 's left hand was bitten by his cat.. He was given IV antibiotics. 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 Today he noticed streaking up the left arm. He denies fevers, chills, nausea, vomiting, lightheadedness. The patient notes that his cat was afflicted with cardiomyopathy and he was put down. Source of History: patient Onset: yesterday Position: arm (left) Quality: other (skin infection) Timing: worsening (now spreading up the left arm) Associated Symptoms: No chills, No fevers, No nausea, No vomiting Review of Systems See HPI for pertinent positives & negatives. A total of 10 systems reviewed and were otherwise negative. Past Medical & Surgical Medical Problems: (1) Cat Bite with Lymphangitis (2) Herniated disc (3) Intractable low back pain (4) Lumbago Family History Diabetes mellitus Heart disease Social History Smoking Status: Former Smoker Marital Status: Housing Status: lives with family Occupation Status: retired Current/Historical Medications Scheduled Amlodipine (Norvasc), 5 MG PO DAILY Amoxicillin & Pot Clavulanate (Augmentin 875-125 mg), 1 TAB PO BID Calcium/Vitamin D (Os-Clarence 500 Plus D), 1 TAB PO DAILY Dutasteride-Tamsulosin Hcl (Yancy), 1 CAP PO DAILY Fluoxetine (Prozac), 40 MG PO DAILY Gabapentin (Neurontin), 900 MG PO TID Lansoprazole (Prevacid), 30 MG PO DAILY Lisinopril (Zestril), 40 MG PO DAILY Lorazepam (Ativan), 0.5 MG PO TID Magnesium (Cvs Magnesium), 300 MG PO DAILY Methimazole (Methimazole ), 5 MG PO DAILY Multivitamin (Multivitamin), 1 TAB PO DAILY Nortriptyline (Pamelor), 50 MG PO HS Simvastatin (Zocor), 20 MG PO HS Vitamins C & E (Vitamin C), 1 TAB PO DAILY Scheduled PRN Hydrocodone/Acetaminophen 7.5MG/325MG ([place] 7.5MG/325MG), 1 TAB PO Q6H PRN for Pain Miscellaneous Medications Aspirin (Aspirin Ec), 325 MG PO Fish Oil ([place]-3), 1 CAP PO Allergies Coded Allergies: No Known Allergies (Unverified , 02/09/17) Physical Exam Vital Signs Date Time Temp Pulse Resp B/P Pulse Ox O2 Delivery O2 Flow Rate FiO2 02/09/17 13:18 54 18 140/71 98 02/09/17 11:44 54 18 162/72 97 Room Air 02/09/17 09:53 36.7 63 18 155/69 96 Room Air Physical Exam GENERAL: Patient is well appearing and in minimal distress. HEENT: No acute trauma, normocephalic atraumatic, mucous membranes moist, no nasal congestion, no scleral icterus. NECK: No stridor, no adenopathy, no meningismus, trachea is midline. LUNGS: No dyspnea. Clear to auscultation and equal bilaterally. No wheeze, no rhonchi. HEART: Regular rate and rhythm. No murmurs, rubs, gallops appreciated. ABDOMEN: Soft, nontender, bowel sounds positive, no masses appreciated, no peritonitis. BACK: No midline tenderness, no CVA tenderness EXTREMITIES: Left upper extremity: Large amount of swelling and bruising of the distal left phalanx with puncture wounds bilaterally, minimal tenderness with intact capillary refill, large amount of erythema left thenar eminence with puncture wound, extensive streaking of erythema from hand to left axilla. Tender swollen lymph nodes throughout the left axilla. NEUROLOGIC: Alert and oriented, no acute motor or sensory deficits, no focal weakness, cranial nerves grossly intact. SKIN: No jaundice, no diaphoresis. Medical Decision & Procedures Laboratory Results 02/09/17 10:25 Red Blood Count 4.42, Mean Corpuscular Volume 95.9, Mean Corpuscular Hemoglobin 31.2, Mean Corpuscular Hemoglobin Concent 32.5, Mean Platelet Volume 9.4, Neutrophils (%) (Auto) 72.9, Lymphocytes (%) (Auto) 16.3, Monocytes (%) (Auto) 9.2, Eosinophils (%) (Auto) 1.0, Basophils (%) (Auto) 0.2, Neutrophils # (Auto) 10.33, Lymphocytes # (Auto) 2.31, Monocytes # (Auto) 1.31, Eosinophils # (Auto) 0.14, Basophils # (Auto) 0.03 02/09/17 10:25 Test 02/09/17 10:25 02/09/17 10:45 White Blood Count 14.18 K/uL (4.8-10.8) Red Blood Count 4.42 M/uL (4.7-6.1) Hemoglobin 13.8 g/dL (14.0-18.0) Hematocrit 42.4 % (42-52) Mean Corpuscular Volume 95.9 fL (80-100) Mean Corpuscular Hemoglobin 31.2 pg (25-34) Mean Corpuscular Hemoglobin Concent 32.5 g/dl (32-36) Platelet Count 179 K/uL (130-400) Mean Platelet Volume 9.4 fL (7.4-10.4) Neutrophils (%) (Auto) 72.9 % Lymphocytes (%) (Auto) 16.3 % Monocytes (%) (Auto) 9.2 % Eosinophils (%) (Auto) 1.0 % Basophils (%) (Auto) 0.2 % Neutrophils # (Auto) 10.33 K/uL (1.4-6.5) Lymphocytes # (Auto) 2.31 K/uL (1.2-3.4) Monocytes # (Auto) 1.31 K/uL (0.11-0.59) Eosinophils # (Auto) 0.14 K/uL (0-0.5) Basophils # (Auto) 0.03 K/uL (0-0.2) RDW Standard Deviation 48.0 fL (36.4-46.3) RDW Coefficient of Variation 13.8 % (11.5-14.5) Immature Granulocyte % (Auto) 0.4 % Immature Granulocyte # (Auto) 0.06 K/uL (0.00-0.02) Anion Gap 4.0 mmol/L (3-11) Est Creatinine Clear Calc Drug Dose 51.4 ml/min Estimated GFR () 68.1 Estimated GFR (Non- 58.8 BUN/Creatinine Ratio 17.8 (10-20) Calcium Level 8.5 mg/dl (8.5-10.1) C-Reactive Protein 5.51 mg/dl (0-0.29) Procalcitonin 0.11 ng/ml (0-0.5) Bedside Lactic Acid Venous 1.14 mmol/L (0.90-1.70) Laboratory results as reviewed by me. Medications Administered Medications (Trade) Dose Ordered Sig/Obed Route Start Time Stop Time Status Last Admin Dose Admin Ampicillin Sodium/ Sulbactam Sodium 3000 mg/Sodium Chloride 108 ml @ 200 mls/hr ONE ONCE IV 02/09/17 10:30 02/09/17 11:02 DC 02/09/17 10:45 200 MLS/HR Sodium Chloride (Nss 1000ml) 1,000 ml @ 75 mls/hr [id number] STAT IV 02/09/17 10:27 02/09/17 13:51 DC 02/09/17 10:45 75 MLS/HR ED Course 1020: The patient was evaluated in room C4. A complete history and physical exam was performed. 1027: NSS 1000 ml @ 75 mls/hr. 1030: Ampicillin Sodium / Sulbactam Sodium 3000 mg / NSS 108 ml @ 200 mls/hr. 1120: The patient is comfortable with staying in the hospital. 1125: Discussed the case with [facility] Hospitalist. The patient will be evaluated. Medical Decision Differential: Contact Dermatitis, Viral Exanthum, Urticaria, Allergic Reaction, SJS, Toxic Epidermal Necrolysis, Erythema Multiforme, Cellulitis, Scabies, HSV, Varicella, Zoster, Eczema, Staph Scalded Skin, Fungal, amongst other pathologies entertained. 76 yr old pleasant male with cat bite to hand seen yesterday in ED and started on Augmentin. In last 6-12 hours rapid worsening now with extensive lymphangitic spread to armpit with tender swollen nodes. Not septic though WBC is elevated as is CRP. Blood cultures obtained. Lactic acid normal with minimal elevation in procalcitonin. Vitals good. Given how quickly this has worsened will need to come in for IV abx. Stable and breathing comfortably. Will continue IV Unasyn. Consults Time Called: 1119 Consulting Physician: Dr. Farr [facility] [place] Returned Call: 1125 The patient will be evaluated. Impression Primary Impression: Lymphangitis Additional Impressions: Cellulitis of left hand Failure of outpatient treatment Cat bite Scribe Attestation The scribe's documentation has been prepared under my direction and personally reviewed by me in its entirety. I confirm that the note above accurately reflects all work, treatment, procedures, and medical decision making performed by me. Departure Information Dispostion Being Evaluated By Hospitalist Referrals Harish Tran M.D. (PCP) Patient Instructions My [facility] Problem Qualifiers Additional Impressions: Cat bite Encounter type: subsequent encounter Qualified Codes: W55.01XD - Bitten by cat, subsequent encounter
[2017-02-09] MEDS ORDERED: AMPICILLIN/SULBACTAM SOD INJ 3,000 MG in SODIUM CHLORIDE 0.9% 100ML 100 ML IV ONE (10:30)
[2017-02-09 10:36] LABS: BASO % 0.2 %; BASO ABS # 0.03 K/uL (0-0.2); COMPLETE YES; HEMATOCRIT 42.4 % (42-52); IG% 0.4 %; LYMPH % 16.3 %; LYMPH ABS # 2.31 K/uL (1.2-3.4); MEAN CELL VOLUME 95.9 fL (80-100); MEAN CORPUSCULAR HEMOGLOBIN 31.2 pg (25-34); MEAN CORPUSCULAR HGB CONC 32.5 g/dl (32-36); MEAN PLATELET VOLUME 9.4 fL (7.4-10.4); MONO % 9.2 %; NEUT % 72.9 %; PLATELET COUNT 179 K/uL (130-400); RED BLOOD COUNT 4.42 M/uL (4.7-6.1); WHITE BLOOD COUNT 14.18 K/uL (4.8-10.8)
[2017-02-09 10:47] LABS: BUN/CREATININE RATIO 17.8 (10-20); C-REACTIVE PROTEIN 5.51 mg/dl (0-0.29); CALCIUM 8.5 mg/dl (8.5-10.1); CREATININE 1.2 mg/dl (0.60-1.40); POTASSIUM 4.3 mmol/L (3.5-5.1)
[2017-02-09] MEDS ORDERED: ACETAMINOPHEN 325 MG TAB PO PRN (12:30)
[2017-02-09] MEDS ORDERED: POLYETHYLENE (MIRALAX) 17 GM PACK PO PRN (12:30)
[2017-02-09] MEDS ORDERED: ONDANSETRON INJ 2 MG/ML 2 ML VIAL IV PRN (12:30)
[2017-02-09] MEDS ORDERED: HYDROCODONE/ACETAMINOPHEN 7.5/325MG TAB PO PRN (12:30)
[2017-02-09] MEDS ORDERED: MAGNESIUM HYDROXIDE SUSP 30 ML UDC PO PRN (12:30)
[2017-02-09] MEDS ORDERED: ALUMINUM/MAGNESIUM/SIMETH (MAALOX MAX) 30 ML UDC PO PRN (12:30)
--- NOTE | 2017-02-09 13:02 | History and Physical ---
History & Physical Date & Time of Service: February 09, 2017 at 12:32 Chief Complaint: Cat Bite Primary Care Physician: Harish Tran M.D. History of Present Illness Source: patient Mr. Wilkerson is a 76 y/o male with PMHx of Unilateral Multicystic Dysplastic Kidney , CKD Stage II, HTN, Hyperthyroidism, and BPH who presents to the ED complaining of worsening symptoms related to multiple cat bites that occurred yesterday 02/08. He reports holding his cat to take to be put down for cardiomyopathy and states the cat was startled. He sustained multiple puncture would bites to the L cheek, L dorsum of hand, L palmar aspect of hand, and L pointer finger. In the ED yesterday he reported ecchymosis and edema and received Unasyn 3 g IV x 1 dose and was sent home to fill a script for Augmentin. He was going to pick the prescription up today and did not take any Augmentin. He reports the pain in the L hand feels "tight" and aching due to edema but has full range of motion of fingers and wrists. Reports minimal clear drainage from puncture wounds but no purulent discharge. Around 0300 he noted red streaking from the hand to stops at the L axillary nodes. Also report tenderness of the L axillary nodes. He denies fever/chills, CP, SOB, abdominal pain, N/V, dysuria, constipation/diarrhea. In the ED, he received Unasyn 3 g IV x 1 dose and was hydrated. He has a mild leukocytosis of 14.18. Lactic acid unremarkable at 1.14. BCx are pending. Past Medical/Surgical History 1. R Multicystic Dysplastic Kidney 2. CKD Stage II 3. HTN 4. Spinal Stenosis with Chronic Back Pain 5. 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 BPH Family History Diabetes mellitus Heart disease Social History Smoking Status: Former Smoker Marital Status: Occupational Status: retired Multi-Drug Resistant Organisms History of MDRO: No Allergies Coded Allergies: No Known Allergies (Unverified , 02/09/17) Home Medications Scheduled Amlodipine (Norvasc), 5 MG PO DAILY Amoxicillin & Pot Clavulanate (Augmentin 875-125 mg), 1 TAB PO BID Calcium/Vitamin D (Os-Clarence 500 Plus D), 1 TAB PO DAILY Dutasteride-Tamsulosin Hcl (Yancy), 1 CAP PO DAILY Fluoxetine (Prozac), 40 MG PO DAILY Gabapentin (Neurontin), 900 MG PO TID Lansoprazole (Prevacid), 30 MG PO DAILY Lisinopril (Zestril), 40 MG PO DAILY Lorazepam (Ativan), 0.5 MG PO TID Magnesium (Cvs Magnesium), 300 MG PO DAILY Methimazole (Methimazole ), 5 MG PO DAILY Multivitamin (Multivitamin), 1 TAB PO DAILY Nortriptyline (Pamelor), 50 MG PO HS Simvastatin (Zocor), 20 MG PO HS Vitamins C & E (Vitamin C), 1 TAB PO DAILY Scheduled PRN Hydrocodone/Acetaminophen 7.5MG/325MG ([place] 7.5MG/325MG), 1 TAB PO Q6H PRN for Pain Miscellaneous Medications Aspirin (Aspirin Ec), 325 MG PO Fish Oil ([place]-3), 1 CAP PO Review of Systems Constitutional: No chills, No fatigue, No fever, No weakness Eyes: No worsening of vision Respiratory: No cough, No shortness of breath Cardiovascular: No chest pain, No palpitations Abdomen: No constipation, No diarrhea, No nausea, No pain, No vomiting Musculoskeletal: No calf pain, No swelling Genitourinary - Male: No dysuria Neurologic: No numbness/tingling, No vertigo Hematologic / Lymphatic: No abnormal bleeding/bruising, No clotting problems Integumentary: + problem reported (multiple cat bites to L cheek and L hand with erythematous streaking to axilla) Physical Exam Vital Signs Date Time Temp Pulse Resp B/P Pulse Ox O2 Delivery O2 Flow Rate FiO2 02/09/17 11:44 54 18 162/72 97 Room Air 02/09/17 09:53 36.7 63 18 155/69 96 Room Air General Appearance: WD/WN, no apparent distress Head: normocephalic, atraumatic Eyes: sclerae normal ENT: hearing grossly normal Neck: supple, no JVD, trachea midline Respiratory/Chest: lungs clear, normal breath sounds, no respiratory distress, no accessory muscle use Cardiovascular: regular rate, rhythm, no gallop, no murmur Abdomen/GI: normal bowel sounds, non tender, soft Back: normal inspection, no CVA tenderness Extremities/Musculoskelatal: no calf tenderness, no pedal edema Neurologic/Psych: alert, oriented x 3 Skin: + pertinent finding (multiple puncture wounds from cat bite on L hand and L cheeck with lymphangitis extending to L axilla; gross motor/gross sensation intact; no limitations in ROM; no purulent drainage; neg for erythema of wounds; no abscess palpable; cap refill adequate ) Lymphatic: + axillary node abnormality (tenderness to palpation of L axilla and mild lymphadenopathy without lymphadenopathy appreciated in cervical or clavicular) Diagnostics Laboratory Results Results Past 24 Hours Test 02/09/17 10:25 02/09/17 10:45 Range/Units White Blood Count 14.18 4.8-10.8 K/uL Red Blood Count 4.42 4.7-6.1 M/uL Hemoglobin 13.8 14.0-18.0 g/dL Hematocrit 42.4 42-52 % Mean Corpuscular Volume 95.9 80-100 fL Mean Corpuscular Hemoglobin 31.2 25-34 pg Mean Corpuscular Hemoglobin Concent 32.5 32-36 g/dl Platelet Count 179 130-400 K/uL Mean Platelet Volume 9.4 7.4-10.4 fL Neutrophils (%) (Auto) 72.9 % Lymphocytes (%) (Auto) 16.3 % Monocytes (%) (Auto) 9.2 % Eosinophils (%) (Auto) 1.0 % Basophils (%) (Auto) 0.2 % Neutrophils # (Auto) 10.33 1.4-6.5 K/uL Lymphocytes # (Auto) 2.31 1.2-3.4 K/uL Monocytes # (Auto) 1.31 0.11-0.59 K/uL Eosinophils # (Auto) 0.14 0-0.5 K/uL Basophils # (Auto) 0.03 0-0.2 K/uL RDW Standard Deviation 48.0 36.4-46.3 fL RDW Coefficient of Variation 13.8 11.5-14.5 % Immature Granulocyte % (Auto) 0.4 % Immature Granulocyte # (Auto) 0.06 0.00-0.02 K/uL Sodium Level 142 136-145 mmol/L Potassium Level 4.3 3.5-5.1 mmol/L Chloride Level 107 98-107 mmol/L Carbon Dioxide Level 31 21-32 mmol/L Anion Gap 4.0 3-11 mmol/L Blood Urea Nitrogen 21 7-18 mg/dl Creatinine 1.20 0.60-1.40 mg/dl Est Creatinine Clear Calc Drug Dose 51.4 ml/min Estimated GFR () 68.1 Estimated GFR (Non- 58.8 BUN/Creatinine Ratio 17.8 10-20 Random Glucose 54 70-99 mg/dl Calcium Level 8.5 8.5-10.1 mg/dl C-Reactive Protein 5.51 0-0.29 mg/dl Procalcitonin 0.11 0-0.5 ng/ml Bedside Lactic Acid Venous 1.14 0.90-1.70 mmol/L Microbiology Results 02/09/17 Blood Culture, Received Pending 02/09/17 Blood Culture, Received Pending Impression Assessment and Plan Mr. Wilkerson is a 76 y/o male with PMHx of Unilateral Multicystic Dysplastic Kidney , CKD Stage II, HTN, Hyperthyroidism, and BPH who presents to the ED complaining of worsening symptoms related to multiple cat bites that occurred yesterday 02/08. Developed lymphangitis at approx. 0300 on 02/09. Multiple Puncture Wounds from Cat Bite 02/08 with Lymphangitis: - Received one dose Unasyn in ED and did not fill Augmentin yesterday - planned to fill this AM but developed Lymphangitis - Unasyn 3 g IV Q6H and await blood cultures - Will defer further imaging at this time without evidence of a cellulitis or abscess HTN: Elevated but STABLE - Likely secondary HTN given cystic kidney - Norvasc 10 mg daily, Lisinopril 40 mg daily, and Metoprolol Succ 50 mg daily Hyperthyroidism: - Methimazole 5 mg daily HLD: - Simvastatin 20 mg daily Spinal Stenosis with Chronic Back Pain: - Gabapentin 900 mg TID and Nortriptyline 25 mg daily BPH: - Dutasteride-Tamsulosin 1 cap daily - non-formulary Cystic R Kidney and CKD Stage II: Stable - Follows with Dr. Ortiz DVT Prophylaxis: Lovenox 40 mg SC daily Disposition: Continue IV antibiotics at this time and await BCx - likely conversion to Augmentin po tomorrow and D/C home - Med reconciliation needs performed - medications as ordered reflect home dosing Level of Care Med/Surg Resuscitation Status FULL RESUSCITATION VTE Prophylaxis VTE Risk Assessment Done? Y/N: Yes Risk Level: Moderate Given or contraindicated: Enoxaparin (Lovenox)SQ, T.E.D. Stockings, SCD's Social Service Consult None Apply Reviewed: Pt Seen/Exam by Me History Pt is feeling much improved. Still with some tenderness in his axillary region , but improved. Swelling is mostly resolved. Redness is also mostly resolved. Feels fine otherwise. No chest pain or SOB and has been taking good PO. Agree with HPI/ROS as above. General Appearance: WD/WN, no apparent distress Respiratory: normal breath sounds, no respiratory distress Cardiovascular: normal peripheral pulses, regular rate, rhythm Gastrointestinal: non tender, soft Extremities: no pedal edema, other (mild TTP in axillary region) Neurologic/Psychiatric: alert Skin Characteristics: warm/dry, other (Small area of erythema along antecubital fossa, several small puncture wounds along hand) Assessment/Plan Agree with plan as outlined above Cat bite, seen in ED yesterday and given unasyn x1, pt had been unable to fill rx for abx and presented today with worsening sx Marked improvement on unasyn, can likely switch to PO tomorrow Given pt's age and other medical issues, medical observation for improvement is warranted Elevated WBC Can avoid imaging given rapid improvement Blood cx pending
[2017-02-09] MEDS ORDERED: IV FLUIDS COMPLETED PRN (14:00)
[2017-02-09 14:18] VITALS: BP 161/82; PULSE 50; TEMP 36.4; O2SAT 98
[2017-02-09 14:20] VITALS: Ht 172.7 cm; Wt 79.7 kg
[2017-02-09] MEDS: LORAZEPAM 0.5 MG TAB PO SCH ×3 (15:09→20:05)
[2017-02-09] MEDS: GABAPENTIN 300 MG CAP PO SCH ×2 (15:09→19:59)
[2017-02-09 15:34] VITALS: BP 130/73; PULSE 55; TEMP 36.4; O2SAT 97
[2017-02-09] MEDS: AMPICILLIN/SULBACTAM SOD INJ 3,000 MG in SODIUM CHLORIDE 0.9% 100ML 100 ML IV SCH ×2 (15:42→22:25)
[2017-02-09] MEDS: ENOXAPARIN 40 MG/0.4 ML SYR SQ SCH (15:43)
[2017-02-09] MEDS ORDERED: LORAZEPAM 1 MG TAB PO PRN (21:30)
[2017-02-09] MEDS: HYDROCODONE/ACETAMINOPHEN 7.5/325MG TAB PO SCH (22:23)
[2017-02-09] MEDS: SIMVASTATIN 20 MG TAB PO SCH (22:24)
[2017-02-09] MEDS: NORTRIPTYLINE HCL 25 MG CAP PO SCH (22:24)
[2017-02-10 00:10] VITALS: BP 150/72; PULSE 55; TEMP 36.6; O2SAT 98
[2017-02-10] MEDS: AMPICILLIN/SULBACTAM SOD INJ 3,000 MG in SODIUM CHLORIDE 0.9% 100ML 100 ML IV SCH ×4 (03:56→22:07)
[2017-02-10 06:55] LABS: HEMATOCRIT 37.4 % (42-52); MEAN CELL VOLUME 96.4 fL (80-100); MEAN CORPUSCULAR HGB CONC 33.2 g/dl (32-36); MEAN PLATELET VOLUME 9.7 fL (7.4-10.4); PLATELET COUNT 152 K/uL (130-400); RED BLOOD COUNT 3.88 M/uL (4.7-6.1); WHITE BLOOD COUNT 10.14 K/uL (4.8-10.8)
[2017-02-10 07:03] VITALS: BP 124/64; PULSE 57; TEMP 36.5; O2SAT 96
[2017-02-10 07:32] LABS: BUN/CREATININE RATIO 17.7 (10-20); CALCIUM 8.3 mg/dl (8.5-10.1); CREATININE 1.1 mg/dl (0.60-1.40); POTASSIUM 4.8 mmol/L (3.5-5.1)
[2017-02-10] MEDS: FLUOXETINE HCL 20 MG CAP PO SCH (07:35)
[2017-02-10] MEDS: PANTOprazole SOD 40 MG TAB PO SCH (07:35)
[2017-02-10] MEDS: AMLODIPINE BESYLATE 5 MG TAB PO SCH (07:36)
[2017-02-10] MEDS: LISINOPRIL 40 MG TAB PO SCH (07:36)
[2017-02-10] MEDS: GABAPENTIN 300 MG CAP PO SCH ×3 (07:36→20:22)
[2017-02-10] MEDS: METOPROLOL SUCC 50MG EXT REL TAB PO SCH (07:36)
[2017-02-10] MEDS: METHIMAZOLE 5 MG TAB PO SCH (07:36)
--- NOTE | 2017-02-10 12:03 | Hospitalist Progress Note ---
Hospitalist Progress Note Date of Service February 10, 2017. (Mar Barrientos, CARA) Subjective Pt evaluation today including: conversation w/ patient, physical exam, chart review, lab review, review of studies, conversation w/ freight traffic consultant (Dr. Person), review of inpatient medication list Patient seen and evaluated. No acute events overnight. Lymphangitis is improving and reports no further tenderness in the L axilla. Edema and ecchymosis of L hand improving. L pointer finger continues to be edematous and tender. Full ROM of fingers and wrist but some limitations to bending of the DIP and PIP of the L pointer finger due to edema. Discussed the case with Dr. Person for concern of puncture wounds and tendon damage. Constitutional: No chills, No fever ENT: + problem reported (dry mouth) Respiratory: No shortness of breath Cardiovascular: No chest pain Abdomen: No diarrhea, No nausea, No pain, No vomiting Musculoskeletal: + joint pain (L pointer finger) Skin: + problem reported (lymphangitis improving (paler)) (Mar Barrientos , SUSANNAC) Medications Current Inpatient Medications Medications (Trade) Dose Ordered Sig/Obed Route Start Time Stop Time Status Last Admin Dose Admin Enoxaparin Sodium (Lovenox Inj) 40 mg Q24H SQ 02/09/17 16:00 03/11/17 15:59 02/09/17 15:43 40 MG Acetaminophen (Tylenol Tab) 650 mg Q4H PRN PO 02/09/17 12:30 03/11/17 12:29 Al Hydrox/Mg Hydrox/Simethicone (Maalox Max Susp) 15 ml Q4H PRN PO 02/09/17 12:30 03/11/17 12:29 Magnesium Hydroxide (Milk Of Magnesia Susp) 30 ml Q6H PRN PO 02/09/17 12:30 03/11/17 12:29 Polyethylene (Miralax Powder Packet) 17 gm DAILY PRN PO 02/09/17 12:30 03/11/17 12:29 Ondansetron HCl (Zofran Inj) 4 mg Q6H PRN IV 02/09/17 12:30 03/11/17 12:29 Amlodipine Besylate (Norvasc Tab) 10 mg DAILY PO 02/10/17 08:00 03/12/17 08:59 02/10/17 07:36 10 MG Aspirin (Ecotrin Tab) 325 mg Q2D@0900 PO 02/11/17 09:00 03/13/17 08:59 Fluoxetine HCl (Prozac Cap) 40 mg DAILY PO 02/10/17 08:00 03/12/17 08:59 02/10/17 07:35 40 MG Gabapentin (Neurontin Cap) 900 mg TID PO 02/09/17 14:00 03/11/17 13:59 02/10/17 07:36 900 MG Lisinopril (Zestril Tab) 40 mg DAILY PO 02/10/17 08:00 03/12/17 08:59 02/10/17 07:36 40 MG Methimazole (Methimazole Tab) 5 mg DAILY PO 02/10/17 08:00 03/12/17 08:59 02/10/17 07:36 5 MG Nortriptyline HCl (Pamelor Cap) 25 mg HS PO 02/09/17 21:00 03/11/17 20:59 02/09/17 22:24 25 MG Simvastatin (Zocor Tab) 20 mg HS PO 02/09/17 22:00 03/11/17 21:59 02/09/17 22:24 20 MG Miscellaneous Information (Order Awaiting Action) 1 ea QS N/A 02/09/17 16:00 03/11/17 15:59 Pantoprazole Sodium 40 mg 40 mg QAM PO 02/10/17 08:00 03/12/17 08:59 02/10/17 07:35 40 MG Ampicillin Sodium/ Sulbactam Sodium/ Sodium Chloride (Unasyn Inj/Nss 100ml) 108 ml @ 200 mls/hr Q6H IV 02/09/17 16:00 02/19/17 15:59 02/10/17 09:38 200 MLS/HR Metoprolol Succinate (Toprol Xl Tab) 50 mg QAM PO 02/10/17 08:00 03/12/17 08:59 02/10/17 07:36 50 MG Miscellaneous (Iv Fluids Completed) 1 ea PRN PRN N/A 02/09/17 14:00 02/09/18 13:59 Acetaminophen/ Hydrocodone Bitart ([place] 7.5/325 Tab) 2 tab HS PO 02/09/17 22:00 02/23/17 21:59 02/09/17 22:23 2 TAB Lorazepam (Ativan Tab) 1 mg HS PRN PO 02/09/17 21:30 03/11/17 21:29 02/09/17 22:23 1 MG (Mar Barrientos PA-C) Objective Vital Signs Date Time Temp Pulse Resp B/P Pulse Ox O2 Delivery O2 Flow Rate FiO2 02/10/17 09:00 Room Air 02/10/17 07:03 36.5 57 18 124/64 96 Room Air 02/10/17 00:10 36.6 55 20 150/72 98 Room Air 02/10/17 00:00 Room Air 02/09/17 20:00 Room Air 02/09/17 17:00 Room Air 02/09/17 15:34 36.4 55 18 130/73 97 Room Air 02/09/17 14:20 Room Air 02/09/17 14:18 36.4 50 18 161/82 98 Room Air 02/09/17 13:18 54 18 140/71 98 (Mar Barrientos PA-C) Physical Exam General Appearance: WD/WN, no apparent distress Eyes: sclerae normal ENT: hearing grossly normal (with hearing aids present) Neck: supple, no JVD, trachea midline Respiratory/Chest: lungs clear, normal breath sounds, no respiratory distress, no accessory muscle use Cardiovascular: regular rate, rhythm, no gallop, no murmur Abdomen: normal bowel sounds, non tender, soft Extremities: no pedal edema, no calf tenderness Neurologic/Psychiatric: alert, oriented x 3 Skin: warm/dry, + pertinent finding (lymphangitis continues to extend from L hand to L axillary region but erythema reducing; L hand less edematous except for L pointer finger largely at DIP; puncture wounds scabbed over without evidence of drainage; mild erythema of DIP of L pointer finger but no overlying cellulitis) Lymphatic: no adenopathy (Mar Barrientos PA-C) Laboratory Results Last 24 Hours Test 02/10/17 06:39 White Blood Count 10.14 K/uL Red Blood Count 3.88 M/uL Hemoglobin 12.4 g/dL Hematocrit 37.4 % Mean Corpuscular Volume 96.4 fL Mean Corpuscular Hemoglobin 32.0 pg Mean Corpuscular Hemoglobin Concent 33.2 g/dl RDW Standard Deviation 48.3 fL RDW Coefficient of Variation 13.8 % Platelet Count 152 K/uL Mean Platelet Volume 9.7 fL Sodium Level 144 mmol/L Potassium Level 4.8 mmol/L Chloride Level 109 mmol/L Carbon Dioxide Level 31 mmol/L Anion Gap 4.0 mmol/L Blood Urea Nitrogen 19 mg/dl Creatinine 1.10 mg/dl Est Creatinine Clear Calc Drug Dose 56.1 ml/min Estimated GFR () 75.7 Estimated GFR (Non- 65.3 BUN/Creatinine Ratio 17.7 Random Glucose 94 mg/dl Calcium Level 8.3 mg/dl (Mar Barrientos, PA-C) Assessment and Plan Mr. Wilkerson is a 76 y/o male with PMHx of Unilateral Multicystic Dysplastic Kidney , CKD Stage II, HTN, Hyperthyroidism, and BPH who presents to the ED complaining of worsening symptoms related to multiple cat bites that occurred yesterday 02/08. Developed lymphangitis at approx. 0300 on 02/09. Multiple Puncture Wounds from Cat Bite 02/08 with Lymphangitis: IMPROVING - Appears this was generally an accidental non-compliance issue as he received one dose Unasyn and thought he needed to start Augmentin the next day -- Received Unasyn at approx 1300 on 02/08 and essentially did not have enough coverage prior to presentation on 02/09 - Unasyn 3 g IV Q6H and await blood cultures - Consult orthopedics - discussed the case with Dr. Person for concern for tendon involvement - recommend no further intervention at this time -- Hilda pointer finger no evidence of tenosynovitis HTN: Elevated but STABLE - Likely secondary HTN given cystic kidney - Norvasc 10 mg daily, Lisinopril 40 mg daily, and Metoprolol Succ 50 mg daily Hyperthyroidism: - Methimazole 5 mg daily HLD: - Simvastatin 20 mg daily Spinal Stenosis with Chronic Back Pain: - Gabapentin 900 mg TID and Nortriptyline 25 mg daily BPH: - Dutasteride-Tamsulosin 1 cap daily - non-formulary Cystic R Kidney and CKD Stage II: Stable - Follows with Dr. Ortiz DVT Prophylaxis: Lovenox 40 mg SC daily Disposition: Continue IV antibiotics at this time and await BCx - likely conversion to Augmentin po tomorrow and D/C home - Med reconciliation needs performed - medications as ordered reflect home dosing - reviewed with patient Continued [facility] stay due to: multiple IV medications needed Discharge planning: home (Mar Barrientos PA-C) Reviewed: Pt Seen/Exam by Me (Sameera Valiente MD) History Physician Cotton Feeder Supervision Note: I interviewed and examined the patient. Discussed with DIDIER Barrientos and agree with findings and plan as documented in the note. Any exceptions or clarifications are listed here: Patient feels less pain in hand, still very stiff in the left index finger unable to flex it. Afebrile Vitals reviewed No acute distress Regular rate and rhythm no murmurs Rubs Clear to Auscultation Bilaterally, breathing unlabored Left index finger with multiple bite wounds with swollen and erythematous and tender soft tissue of the distal phalanx, unable to flex, no tenderness over the flexor tendon, 2+ radial pulse 76-year-old male with a left finger and hand cellulitis without evidence currently of tenosynovitis, with lymphangitis failed outpatient therapy -Continue IV Unasyn and monitor CBC -Appreciate orthopedic consultation Documented By: Sameera Valiente (Sameera Valiente MD)
[2017-02-10 15:22] VITALS: BP_SYST 133; BP_SYST 138; BP_DIAS 73; PULSE 56; PULSE 81; TEMP 36.5; TEMP 36.7; O2SAT 97; O2SAT 99
[2017-02-10] MEDS: ENOXAPARIN 40 MG/0.4 ML SYR SQ SCH (16:00)
--- NOTE | 2017-02-10 18:40 | ORTHOPEDIC CONSULTATION ---
DATE OF CONSULTATION: 02/10/2017 CHIEF COMPLAINT: Left hand pain. HISTORY OF PRESENT ILLNESS: This patient is a 76-year-old male with an extensive medical history including kidney disease, hypertension; who approximately a few days earlier was bitten by his cat . He had multiple bites most importantly he had bites on his left hand. He was given a dose of antibiotics in the hospital and was just started on oral antibiotics which he had not started. He presented with increased swelling, pain and discomfort in the arm and was admitted for cellulitis and lymphangitis. He has been in the hospital about 24 hours. By report, he seems to be responding to the antibiotics. An orthopedic consultation was placed pending evaluation to rule out tenosynovitis of the left index finger. PAST MEDICAL AND SURGICAL HISTORY: See recent history. PHYSICAL EXAMINATION: GENERAL: The patient is comfortable. He is seated in bed. EXTREMITIES: He has multiple punctures on his hand; most importantly, there is one on the distal phalanx quite distally near the fingernail, there is 1 on the radial aspect of the finger about fpc down but seems more dorsal than polanco. The patient has a swollen pulp in distal phalanx, which is somewhat painful to move but his interphalangeal joint and metacarpophalangeal joint can be actively and passively flexed without discomfort or swelling at all. The remainder of the exam is benign. LABORATORY STUDIES: White count was 14.1 on admission, there is another count pending. C-reactive protein was 5.51. IMPRESSION: Cat bite with lymphangitis, responding to antibiotics. DISCUSSION: I explained that I do not believe that this patient has a flexor tenosynovitis or even an impending flexor tenosynovitis. The position of his bite is such that he may develop a felon of the distal pulp space, but it does seem to be responding with antibiotic treatment and I would recommend continuing the IV if patient can be allowed to eat. We will follow him up with you. GEORGI
[2017-02-10 20:00] VITALS: O2SAT 97
[2017-02-10] MEDS: HYDROCODONE/ACETAMINOPHEN 7.5/325MG TAB PO SCH (20:20)
[2017-02-10] MEDS: SIMVASTATIN 20 MG TAB PO SCH (22:06)
[2017-02-10] MEDS: NORTRIPTYLINE HCL 25 MG CAP PO SCH (22:07)
[2017-02-10 23:23] VITALS: BP 140/68; PULSE 54; TEMP 36.8; O2SAT 94
[2017-02-11] VITALS: O2SAT 97
[2017-02-11] MEDS ORDERED: AMOXICILLIN/CLAVULANATE TAB 875 MG TAB PO SCH
[2017-02-11] MEDS: AMPICILLIN/SULBACTAM SOD INJ 3,000 MG in SODIUM CHLORIDE 0.9% 100ML 100 ML IV SCH ×2 (05:36→10:06)
[2017-02-11 07:01] LABS: HEMATOCRIT 40.5 % (42-52); MEAN CELL VOLUME 95.7 fL (80-100); MEAN CORPUSCULAR HGB CONC 32.3 g/dl (32-36); MEAN PLATELET VOLUME 9.6 fL (7.4-10.4); PLATELET COUNT 176 K/uL (130-400); RED BLOOD COUNT 4.23 M/uL (4.7-6.1); WHITE BLOOD COUNT 11.31 K/uL (4.8-10.8)
[2017-02-11 07:08] VITALS: BP 166/89; PULSE 55; TEMP 36.7; O2SAT 97
--- NOTE | 2017-02-11 07:13 | Orthopedic Progress Note ---
Orthopedic Progress Note Date of Service February 11, 2017. Subjective Reports: feeling well, pain controlled w PO medications, Denies: complaints Additional Notes: States the left 2nd finger is a little better with the IV antibiotics. No new complaints. Objective N/V intact, capillary refill less than 2 sec., A&O x3 Left hand: fingers are mobile. 2nd finger--distal tip has mild erythema. No drainage noted. Moderate swelling of the distal phalanx. No swelling into the proximal finger. No erythema or streaking into the middle or proximal phalanx of the 2nd finger. Good ROM. Date Time Temp Pulse Resp B/P Pulse Ox O2 Delivery O2 Flow Rate FiO2 02/11/17 07:08 36.7 55 18 166/89 97 Room Air 02/11/17 00:00 97 Room Air 02/10/17 23:23 36.8 54 20 140/68 94 Room Air 02/10/17 20:00 97 Room Air 02/10/17 17:00 Room Air 02/10/17 15:22 36.5 56 20 138/73 97 Room Air 02/10/17 09:00 Room Air Laboratory Results 24 Hours: Test 02/11/17 06:51 Hematocrit 40.5 % Hemoglobin 13.1 g/dL Assessment & Plan Assessment: Left 2nd finger cellulitis following a cat bite. Plan: Continue IV antibiotics until medicine feels he can be switched to PO antibiotics for d/c. No surgical tx at this time. Disposition per medicine.
[2017-02-11 07:34] LABS: BUN/CREATININE RATIO 18.8 (10-20); CALCIUM 8.5 mg/dl (8.5-10.1); CREATININE 1.1 mg/dl (0.60-1.40); POTASSIUM 4.2 mmol/L (3.5-5.1)
[2017-02-11] MEDS: METHIMAZOLE 5 MG TAB PO SCH (08:14)
[2017-02-11] MEDS: PANTOprazole SOD 40 MG TAB PO SCH (08:14)
[2017-02-11] MEDS: GABAPENTIN 300 MG CAP PO SCH ×2 (08:15→13:32)
[2017-02-11] MEDS: FLUOXETINE HCL 20 MG CAP PO SCH (08:16)
[2017-02-11] MEDS: LISINOPRIL 40 MG TAB PO SCH (08:16)
[2017-02-11] MEDS: METOPROLOL SUCC 50MG EXT REL TAB PO SCH (08:17)
[2017-02-11] MEDS: AMLODIPINE BESYLATE 5 MG TAB PO SCH (08:17)
[2017-02-11] MEDS ORDERED: ASPIRIN 325 MG ECTAB PO SCH (09:00)
[2017-02-11] MEDS ORDERED: CONSULT PHARMACY STA (13:04)
[2017-02-11] MEDS ORDERED: AMOX875T PO (13:11)
[2017-02-11] MEDS ORDERED: TPRSR50 PO (13:14)
--- NOTE | 2017-02-11 13:29 | Discharge Instructions ---
Discharge Instructions Date of Service February 11, 2017. Admission Reason for Admission: Cat Bite With Lymphangitis Discharge Discharge Diagnosis / Problem: Cat Bite with Lymphangitis Discharge Goals Goal(s): Decrease discomfort, Improve function, Increase independence Activity Recommendations Activity Limitations: resume your previous activity . Instructions / Follow-Up Instructions / Follow-Up Multiple Puncture Wounds from Cat Bite 02/08 with Lymphangitis: IMPROVING - Take one dose of Augmentin tonight 02/11 and then resume twice a day until February 18, 2017 -- We will give you medications to take home until you can fill the antibiotics from your pharmacy - You will be provided with a prescription just in case the one sent by the ED on 02/08 is not there. - You will be contacted by our manager case to help set up an appointment with your family doctor -- Recommend close follow-up with your family doctor for monitoring of your finger - If you develop fevers/chills, pain worsens, increased pus-like drainage occurs , or redness worsens please come back to the hospital - It is important to continue antibiotics until finished even if feeling better - pending on re-evaluation from your family doctor you may need a longer duration Home Medications: - Continue your home medications as previously prescribed. We did not make adjustments to these Follow-Up: - Please see your family doctor in 7 days or sooner if possible - our manager case will help set this up. If you do not hear from us please call our office at [phone] and we can assist you Current Hospital Diet Patient's current hospital diet: Regular Diet Discharge Diet Recommended Diet: Regular Diet Pending Studies Studies pending at discharge: no Medical Emergencies . Who to Call and When: Medical Emergencies: If at any time you feel your situation is an emergency, please call 911 immediately. . Non-Emergent Contact Non-Emergency issues call your: Primary Care Provider Call Non-Emergent contact if: you have a fever, your pain is concerning you, you have any medication questions . . "Provider Documentation" section prepared by Mar Barrientos. . VTE Core Measure Inpt VTE Proph given/why not?: Enoxaparin (Lovenox)SQ, T.E.D. Stockings, SCD's
[2017-02-11 13:38] VITALS: BP 166/89; PULSE 55; TEMP 36.7; O2SAT 97
--- NOTE | 2017-02-11 14:36 | Discharge Summary ---
Discharge Summary Date of Service February 11, 2017. (Mar Barrientos PA-C) Discharge Summary Admission Date: February 10, 2017 at 22:16 Discharge Date: February 11, 2017 Discharge Disposition: Home Principal Diagnosis: Multiple Cat Bites to L Hand and L Pointer Finger with Lymphangitis Problems/Secondary Diagnoses: 1. R Multicystic Dysplastic Kidney 2. CKD Stage II 3. HTN 4. Spinal Stenosis with Chronic Back Pain 5. 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 BPH Consultations: 1. Orthopedic Surgery (Mar Barrientos PA-C) Medication Reconciliation Continued Medications: Amlodipine (Norvasc) 5 Mg Tab 10 MG PO DAILY, TAB Amoxicillin & Pot Clavulanate (Augmentin 875-125 mg) 1 Tab Tab 1 TAB PO BID for 7 Days, #14 TAB (This prescription has been renewed) Aspirin (Aspirin Ec) 325 Mg Tab 325 MG PO Calcium/Vitamin D (Os-Clarence 500 Plus D) Tab 1 TAB PO DAILY, TAB Dutasteride-Tamsulosin Hcl (Yancy) 1 Cap Cap 1 CAP PO DAILY for 30 Days, #30 CAP 11 Refills Fish Oil ([place]-3) 1 Ea Cap 1 CAP PO, CAP Fluoxetine (Prozac) 40 Mg Cap 40 MG PO DAILY, CAP Gabapentin (Neurontin) 300 Mg Cap 900 MG PO TID, CAP Hydrocodone/Acetaminophen 7.5MG/325MG ([place] 7.5MG/325MG) Tab 1 TAB PO Q6H PRN for Pain, #10 TAB PRN PAIN Lansoprazole (Prevacid) 30 Mg Capcr 30 MG PO DAILY, CAP Lisinopril (Zestril) 40 Mg Tab 40 MG PO DAILY, TAB Lorazepam (Ativan) 0.5 Mg Tab 1 MG PO HS, TAB Magnesium (Cvs Magnesium) Unknown Strength Tab 300 MG PO DAILY Methimazole (Methimazole ) 5 Mg Tab 5 MG PO DAILY Metoprolol Succinate (Metoprolol Succinate ER) 50 Mg Tabcr 50 MG PO DAILY Multivitamin (Multivitamin) Tab 1 TAB PO DAILY, TAB Nortriptyline (Pamelor) 50 Mg Cap 25 MG PO HS, CAP Simvastatin (Zocor) 20 Mg Tab 20 MG PO HS for 30 Days, #30 TAB 5 Refills Vitamins C & E (Vitamin C) 1 Cap Cap 1 TAB PO DAILY Discharge Exam Review of Systems: Constitutional: No chills, No fever ENT: + problem reported (dry mouth), No nasal symptoms, No sore throat, No trouble swallowing Respiratory: No cough, No shortness of breath Cardiovascular: No chest pain Abdomen: No constipation, No diarrhea, No nausea, No pain, No vomiting Musculoskeletal: No calf pain, No swelling Genitourinary - Male: No dysuria Integumentary: + problem reported (improving L pointer finger erythema and edema) Physical Exam: General Appearance: WD/WN, no apparent distress Eyes: sclerae normal ENT: hearing grossly normal Neck: supple, no JVD, trachea midline Respiratory/Chest: lungs clear, normal breath sounds, no respiratory distress, no accessory muscle use Cardiovascular: regular rate, rhythm, no gallop, no murmur Abdomen / GI: normal bowel sounds, non tender, soft Extremities: no calf tenderness, no pedal edema Neurologic/Psychiatric: alert, oriented x 3 Skin: + pertinent finding (lymphangitis resolving with mild erythema at level of elbow; edema of hand resolved; erythema and edema of L pointer finger with improvement; expressed some purulent drainage; full range of motion of fingers and wrist ) Lymphatic: no adenopathy (L axillary adenopathy resolved) (Mar Barrientos, CARA) Hospital Course ADMISSION: Mr. Wilkerson is a 76 y/o male with PMHx of Unilateral Multicystic Dysplastic Kidney, CKD Stage II, HTN, Hyperthyroidism, and BPH who presents to the ED complaining of worsening symptoms related to multiple cat bites that occurred yesterday 02/08. He reports holding his cat to take to be put down for cardiomyopathy and states the cat was startled. He sustained multiple puncture wound bites to the L cheek, L dorsum of hand, L palmar aspect of hand, and L pointer finger. In the ED yesterday he reported ecchymosis and edema and received Unasyn 3 g IV x 1 dose and was sent home to fill a script for Augmentin. He was going to pick the prescription up today and did not take any Augmentin. He reports the pain in the L hand feels "tight" and aching due to edema but has full range of motion of fingers and wrists. Reports minimal clear drainage from puncture wounds but no purulent discharge. Around 0300 he noted red streaking from the hand that stops at the L axillary nodes. Also report tenderness of the L axillary nodes. He denies fever/chills, CP, SOB, abdominal pain, N/V, dysuria, constipation/diarrhea. In the ED, he received Unasyn 3 g IV x 1 dose and was hydrated. He has a mild leukocytosis of 14.18. Lactic acid unremarkable at 1.14. BCx are pending. HOSPITAL COURSE: Mr. Wilkerson was admitted for lymphangitis associated with multiple cat bites with some mild cellulitis of the L pointer finger. It does not appear that he failed outpatient treatment as he had a dose of Unasyn in ED around 1300 and was planning on starting Augmentin the next day and did not have adequate coverage given the short acting nature of Unasyn. He was reinstituted on Unasyn 3 g IV Q6H while hospitalized with resolution of leukocytosis. He remained afebrile during admission. Lymphangitis improved and edema of hand resolved. L pointer finger remains with erythema and edema with full range of motion. Due to concern for tenosynovitis or the significant complications related to cat bites, orthopedics were consulted. No clinical indications for tenosynovitis at this time. Some purulent drainage was expressed from L pointer finger but no appreciated abscess noted. He was provided a prescription for Augmentin 875 mg BID x 7 more days to complete a 10 day course. He was instructed to have close PCP follow-up for monitoring and to evaluate for need for longer duration of antibiotics. Tetanus vaccination up-to- date per patient. Total Time Spent: Greater than 30 minutes This includes examination of the patient, discharge planning, medication reconciliation, and communication with other providers. (Mar Barrientos, PA-C) PA Physician Supervision Note: I interviewed and examined the patient. Discussed with Mar Barrientos PAC and agree with findings and plan as documented in the note. Any exceptions or clarifications are listed here: None This pt is much improved, less redness but still some persistent distal finger swelling I expressed 1 cc of purulent fluid from periungual cat puncture wound, finger itself is not tense or painful vss will have home on Augmentin with close follow up, pt and instructed on what to watch for at home Documented By: Matthieu Auguste (Matthieu Auguste M.D.) Discharge Instructions Please refer to the electronic Patient Visit Report (Discharge Instructions) for additional information. (Mar Barrientos, SUSANNAC) Additional Copies To Harish Tran M.D.
[2017-05-31] MEDS ORDERED: FURO-85 PO (14:22)
[2017-05-31] MEDS ORDERED: DOXA2TAB PO (14:22)
== END 2017-02-11 13:50 | disposition home or self-care (01) | DRG 603 ==
LOC: ENRESERVTM → ENRESERVDT → C.EDB 09:49 → C.MS4W 13:38 → OBSVTOIN 02-10 22:16
PROVIDERS: ADMIT Family Medicine; ATTEND Family Medicine
DX: I89.1 Lymphangitis (principal); Q61.4 Renal dysplasia; N18.2 Chronic kidney disease, stage 2 (mild); G89.29 Other chronic pain; E05.90 Thyrotoxicosis, unspecified without thyrotoxic crisis or storm; H54.42 Blindness, left eye, normal vision right eye; N40.0 Benign prostatic hyperplasia without lower urinary tract symptoms; E78.5 Hyperlipidemia, unspecified; Z91.19 Patient's noncompliance with other medical treatment and regimen; Z87.891 Personal history of nicotine dependence; W55.01XA Bitten by cat, initial encounter; Z79.82 Long term (current) use of aspirin; I12.9 Hypertensive chronic kidney disease with stage 1 through stage 4 chronic kidney disease, or unspecified chronic kidney disease; S01.452A Open bite of left cheek and temporomandibular area, initial encounter; S61.258A Open bite of other finger without damage to nail, initial encounter; S61.452A Open bite of left hand, initial encounter; Z79.899 Other long term (current) drug therapy

== ENCOUNTER → 2017-05-02 | Outpatient (CLI) | payer BC ==
[~2017-05-02] MED LIST changes: +DOXA2TAB PO; +FURO-85 PO; +TPRSR50 PO
[2017-05-02 17:45] LABS: ALT/SGPT 23 U/L (12-78); BLOOD UREA NITROGEN 15 mg/dl (7-18); BUN/CREATININE RATIO 13.5 (10-20); CALCIUM 8.8 mg/dl (8.5-10.1); CARBON DIOXIDE 31 mmol/L (21-32); CHLORIDE 106 mmol/L (98-107); GLUCOSE 97 mg/dl (70-99); POTASSIUM 4.6 mmol/L (3.5-5.1); SODIUM 140 mmol/L (136-145)
[2017-05-02 17:54] LABS: BASO % 0.6 %; BASO ABS # 0.04 K/uL (0-0.2); COMPLETE YES; EOS % 4.6 %; HEMATOCRIT 38.7 % (42-52); IG% 0.5 %; LYMPH % 27.1 %; LYMPH ABS # 1.78 K/uL (1.2-3.4); MEAN CELL VOLUME 95.1 fL (80-100); MEAN CORPUSCULAR HEMOGLOBIN 32.7 pg (25-34); MEAN CORPUSCULAR HGB CONC 34.4 g/dl (32-36); MEAN PLATELET VOLUME 10.4 fL (7.4-10.4); MONO % 8.8 %; NEUT % 58.4 %; PLATELET COUNT 182 K/uL (130-400); RED BLOOD COUNT 4.07 M/uL (4.7-6.1); WHITE BLOOD COUNT 6.58 K/uL (4.8-10.8)
[2017-05-02 17:55] LABS: ALKALINE PHOSPHATASE 80 U/L (45-117); AST/SGOT 28 U/L (15-37)
[2017-05-02 18:16] LABS: LYME DISEASE AB IGG NEG (NEG); LYME DISEASE AB IGM NEG (NEG)
--- NOTE | 2017-05-10 06:25 | CODING QUERY MEDICAL NECESSITY ---
SUPPORTING DIAGNOSIS NEEDED Dr. Sheriff, A supporting diagnosis is required for the test/procedure performed on this patient in order for us to be reimbursed by the patient's insurance. Please provide a supporting diagnosis for the following test/procedure listed below next to the test name along with your signature. *If there is no additional diagnosis for this patient that would support the following test/procedure please document that below next to the test/procedure. Test(s)/Procedure(s) that require a supporting diagnosis: * ([id number]) VITAMIN D ASSAY DIAGNOSIS: DATE OF SERVICE: 05/02/17 Provider Signature: Date: Thank you Damian Sweet [facility] Information Management Once completed, please kindly fax back to [phone] For questions please call [phone]
== END | disposition home or self-care (01) ==
LOC: C.LABBFT 11:04
PROVIDERS: ATTEND Physician Assistant Medical
DX: R29.6 Repeated falls (principal); R29.898 Other symptoms and signs involving the musculoskeletal system

== ENCOUNTER → 2017-05-14 | Outpatient (CLI) | payer BC ==
[~2017-05-14] MED LIST changes: +GADAVIST IV PRN; -HYDR-3983 PO
--- NOTE | 2017-05-14 11:07 | DIAGNOSTIC IMAGING REPORT ---
ABDOMEN COMBO CLINICAL HISTORY: 76 years-old Male presenting with bilateral renal cysts. TECHNIQUE: Multisequence, multiplanar MR imaging of the abdomen was performed before and after the administration of intravenous contrast. IV contrast: 7.5 mm of Gadavist. COMPARISON: Correlation made to ultrasound from 06/04/2016 and MR of the lumbar spine from 11/07/2016. FINDINGS: The right kidney is markedly enlarged secondary to the presence of numerous well-defined T2 hyperintense, T1 hypointense nonenhancing lesions consistent with simple cysts. Few cysts also noted in the left kidney, which is not enlarged. The largest cyst in the left kidney may demonstrate a single thin septation without perceptible enhancement (series 9 image 21) (Bosniak 2). Normal excretion from both kidneys. No hydronephrosis. Single main renal arteries bilaterally. Late convergence of right renal veins with a common trunk at the IVC. 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 Multiple well-defined T2 hyperintense nonenhancing lesions compatible with hepatic cysts or hamartomas. Hepatic fat fraction measures 2.6%, which is normal. Gallbladder decompressed. No biliary duct dilatation. 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 No pancreatic ductal dilatation or other suspicious features. Spleen and adrenal glands normal. Bowel grossly normal. No free fluid. Atherosclerosis of the normal caliber abdominal aorta. Lung bases clear. Normal bone marrow signal intensity. IMPRESSION: Bilateral renal cysts, which are predominantly simple. No suspicious renal mass. 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 No evidence of obstruction. Electronically signed by: Wali Cisse M.D. 05/14/2017 11:06 AM Dictated Date/Time: 05/14/2017 10:55 AM
== END | disposition home or self-care (01) ==
LOC: C.MRIBC 09:41
PROVIDERS: ATTEND Urology
DX: N28.1 Cyst of kidney, acquired (principal)

== ENCOUNTER → 2017-05-23 | Outpatient (CLI) | payer BC ==
[~2017-05-23] MED LIST changes: -AMOX875T PO; -GADAVIST IV PRN
[2017-05-23 17:12] LABS: BLOOD UREA NITROGEN 32 mg/dl (7-18); BUN/CREATININE RATIO 24.3 (10-20); CALCIUM 9.2 mg/dl (8.5-10.1); CARBON DIOXIDE 30 mmol/L (21-32); CHLORIDE 106 mmol/L (98-107); GLUCOSE 92 mg/dl (70-99); POTASSIUM 4.2 mmol/L (3.5-5.1); SODIUM 141 mmol/L (136-145)
== END | disposition home or self-care (01) ==
LOC: C.LABBFT 13:54
PROVIDERS: ATTEND Internal Medicine
DX: N28.1 Cyst of kidney, acquired (principal); R60.9 Edema, unspecified

== ENCOUNTER → 2017-06-12 | Outpatient (CLI) | payer BC ==
[2017-06-12 12:28] LABS: BLOOD UREA NITROGEN 21 mg/dl (7-18); BUN/CREATININE RATIO 19.3 (10-20); CALCIUM 8.5 mg/dl (8.5-10.1); CARBON DIOXIDE 29 mmol/L (21-32); CHLORIDE 107 mmol/L (98-107); GLUCOSE 65 mg/dl (70-99); POTASSIUM 4.3 mmol/L (3.5-5.1); SODIUM 142 mmol/L (136-145)
== END | disposition home or self-care (01) ==
LOC: C.LABBFT 10:14
PROVIDERS: ATTEND Internal Medicine
DX: R60.0 Localized edema (principal)

== ENCOUNTER → 2017-07-25 | Outpatient (CLI) | payer BC ==
[2017-07-25 17:45] LABS: URINE APPEARANCE CLEAR (CLEAR); URINE BILIRUBIN NEG (NEG); URINE COLOR YELLOW; URINE EPITHELIAL CELL AUTO 0-5 /lpf (0-5); URINE NITRITE NEG (NEG); URINE PH 5.5 (4.5-7.5); URINE SPECIFIC GRAVITY 1.015 (1.000-1.030); UROBILINOGEN NEG (NEG)
[2017-07-25 17:47] LABS: MANUAL MICROSCOPIC REQUIRED? NO; REVIEW REQ? NO
[2017-07-25 17:50] LABS: ALT/SGPT 32 U/L (12-78); AST/SGOT 35 U/L (15-37); BLOOD UREA NITROGEN 20 mg/dl (7-18); BUN/CREATININE RATIO 16.8 (10-20); CALCIUM 9.2 mg/dl (8.5-10.1); CARBON DIOXIDE 30 mmol/L (21-32); CHLORIDE 105 mmol/L (98-107); CREATININE 1.18 mg/dl (0.60-1.40); GLUCOSE 96 mg/dl (70-99); POTASSIUM 3.9 mmol/L (3.5-5.1); SODIUM 140 mmol/L (136-145)
[2017-07-25 17:51] LABS: MEAN CELL VOLUME 96.9 fL (80-100); MEAN CORPUSCULAR HEMOGLOBIN 31.5 pg (25-34); MEAN CORPUSCULAR HGB CONC 32.5 g/dl (32-36); MEAN PLATELET VOLUME 10.4 fL (7.4-10.4); PLATELET COUNT 197 K/uL (130-400); RED BLOOD COUNT 4.13 M/uL (4.7-6.1); WHITE BLOOD COUNT 7.87 K/uL (4.8-10.8)
[2017-07-25 17:53] LABS: ALKALINE PHOSPHATASE 81 U/L (45-117)
[2017-07-25 18:09] LABS: CREATININE, URINE 39.7 mg/dl; URINE TOTAL PROTEIN < 5.0 mg/dl (0-11.9)
== END | disposition home or self-care (01) ==
LOC: C.LABBFT 13:28
PROVIDERS: ATTEND Internal Medicine Nephrology
DX: I12.9 Hypertensive chronic kidney disease with stage 1 through stage 4 chronic kidney disease, or unspecified chronic kidney disease (principal); Q61.3 Polycystic kidney, unspecified; N18.2 Chronic kidney disease, stage 2 (mild)

== ENCOUNTER → 2017-08-29 | Outpatient (CLI) | payer BC ==
[2017-08-29 13:07] LABS: ALT/SGPT 22 U/L (12-78); AST/SGOT 23 U/L (15-37); BLOOD UREA NITROGEN 19 mg/dl (7-18); BUN/CREATININE RATIO 16.1 (10-20); CARBON DIOXIDE 32 mmol/L (21-32); CHLORIDE 103 mmol/L (98-107); GLUCOSE 112 mg/dl (70-99); POTASSIUM 3.9 mmol/L (3.5-5.1); SODIUM 140 mmol/L (136-145)
[2017-08-29 13:08] LABS: ALT/SGPT 24 U/L (12-78); BLOOD UREA NITROGEN 19 mg/dl (7-18); BUN/CREATININE RATIO 16.4 (10-20); CREATININE 1.16 mg/dl (0.60-1.40)
[2017-08-29 13:11] LABS: BASO % 0.6 %; BASO ABS # 0.04 K/uL (0-0.2); COMPLETE YES; EOS % 7.3 %; HEMATOCRIT 38.3 % (42-52); IG% 0.3 %; LYMPH % 38.1 %; LYMPH ABS # 2.56 K/uL (1.2-3.4); MEAN CELL VOLUME 96.2 fL (80-100); MEAN CORPUSCULAR HEMOGLOBIN 31.9 pg (25-34); MEAN CORPUSCULAR HGB CONC 33.2 g/dl (32-36); MEAN PLATELET VOLUME 10.1 fL (7.4-10.4); MONO % 7.1 %; NEUT % 46.6 %; PLATELET COUNT 192 K/uL (130-400); RED BLOOD COUNT 3.98 M/uL (4.7-6.1); WHITE BLOOD COUNT 6.72 K/uL (4.8-10.8)
[2017-08-29 13:11] LABS: ALKALINE PHOSPHATASE 77 U/L (45-117); AST/SGOT 27 U/L (15-37)
[2017-08-29 13:19] LABS: ALB/GLOB RATIO 0.9 (0.9-2); ALKALINE PHOSPHATASE 76 U/L (45-117)
== END | disposition home or self-care (01) ==
LOC: C.LABBFT 08:55
PROVIDERS: ATTEND Internal Medicine
DX: R74.8 Abnormal levels of other serum enzymes (principal); N28.1 Cyst of kidney, acquired; I12.9 Hypertensive chronic kidney disease with stage 1 through stage 4 chronic kidney disease, or unspecified chronic kidney disease; N18.2 Chronic kidney disease, stage 2 (mild); E05.90 Thyrotoxicosis, unspecified without thyrotoxic crisis or storm

== ENCOUNTER → 2017-09-11 | Outpatient (CLI) | payer BC ==
[~2017-09-11] MED LIST changes: -AMLO-110 PO; +AMLO5TAB3 PO; +ASPI81TA28 PO; +HYDR-3983 PO; +MELO7.5T5 PO
--- NOTE | 2017-09-11 10:22 | DIAGNOSTIC IMAGING REPORT ---
ULTRASOUND EXAM AAA SCREEN CLINICAL HISTORY: Z87.891 Former [id number] Abdominal [id number] COMPARISON STUDY: Abdominal MRI 05/14/2017. FINDINGS: The aorta was not visualized due to overlying bowel gas. IMPRESSION: 1. Nondiagnostic evaluation of the aorta due to overlying bowel gas. 2. However, it should be noted that the abdominal aorta was normal in caliber on the 05/14/2017 MRI. Electronically signed by: Ramírez Bradshaw M.D. 09/11/2017 10:20 AM Dictated Date/Time: 09/11/2017 10:19 AM
== END | disposition home or self-care (01) ==
LOC: C.ULTR 09:57
PROVIDERS: ATTEND Internal Medicine
DX: R14.0 Abdominal distension (gaseous) (principal); Z87.891 Personal history of nicotine dependence

== ENCOUNTER → 2018-01-16 | Outpatient (CLI) | payer BC ==
[~2018-01-16] MED LIST changes: +AMLO-110 PO; -AMLO5TAB3 PO
== END | disposition home or self-care (01) ==
LOC: C.PATHSPEC 17:40
PROVIDERS: ATTEND Plastic Surgery
DX: D22.5 Melanocytic nevi of trunk (principal); D22.71 Melanocytic nevi of right lower limb, including hip

== ENCOUNTER → 2018-01-17 | Outpatient (CLI) | payer BC ==
--- NOTE | 2018-01-17 10:42 | DIAGNOSTIC IMAGING REPORT ---
R HIP UNILATERAL 2 VIEWS CLINICAL HISTORY: Right hip pain. COMPARISON: CT of the abdomen and pelvis April 26, 2016. FINDINGS: Alignment of the right hip is anatomic. There is no fracture or suspicious lesion. There is mild joint space narrowing and osteophytosis of the right hip. IMPRESSION: 1. No acute fracture. 2. Mild osteoarthritis of the right hip. Electronically signed by: Leo Mcfarland M.D. 01/17/2018 10:41 AM Dictated Date/Time: 01/17/2018 10:40 AM
--- NOTE | 2018-01-17 10:43 | DIAGNOSTIC IMAGING REPORT ---
L HIP UNILATERAL 2 VIEWS CLINICAL HISTORY: Left hip pain. COMPARISON: CT of the abdomen and pelvis April 26, 2016. FINDINGS: Alignment of the left hip is anatomic. There is no fracture or suspicious lesion. There is no evidence for avascular necrosis. There is mild joint space narrowing and osteophytosis of the left hip. IMPRESSION: 1. No acute fracture. 2. Mild osteoarthritis of the left hip. Electronically signed by: Leo Mcfarland M.D. 01/17/2018 10:42 AM Dictated Date/Time: 01/17/2018 10:41 AM
== END | disposition home or self-care (01) ==
LOC: C.RADBC 10:08
PROVIDERS: ATTEND Anesthesiology
DX: M25.552 Pain in left hip (principal); M16.12 Unilateral primary osteoarthritis, left hip

== ENCOUNTER → 2018-01-23 | Outpatient (CLI) | payer BC ==
[~2018-01-23] MED LIST changes: -ASPI325T39 PO
[2018-01-23 12:15] LABS: HEMATOCRIT 39.2 % (42-52); MEAN CELL VOLUME 92.9 fL (80-100); MEAN CORPUSCULAR HEMOGLOBIN 30.8 pg (25-34); MEAN CORPUSCULAR HGB CONC 33.2 g/dl (32-36); MEAN PLATELET VOLUME 10.2 fL (7.4-10.4); PLATELET COUNT 191 K/uL (130-400); RED CELL DISTRIBUTION WIDTH CV 14.4 % (11.5-14.5); WHITE BLOOD COUNT 6.55 K/uL (4.8-10.8)
[2018-01-23 12:34] LABS: ALBUMIN 3.2 gm/dl (3.4-5.0); BLOOD UREA NITROGEN 22 mg/dl (7-18); CALCIUM 8.8 mg/dl (8.5-10.1); CARBON DIOXIDE 31 mmol/L (21-32); CREATININE 1.06 mg/dl (0.60-1.40); GLUCOSE 101 mg/dl (70-99); PHOSPHORUS 3.5 mg/dl (2.5-4.9); POTASSIUM 4.3 mmol/L (3.5-5.1); SODIUM 143 mmol/L (136-145)
== END | disposition home or self-care (01) ==
LOC: C.LABBFT 09:21
PROVIDERS: ATTEND Internal Medicine Nephrology
DX: I12.9 Hypertensive chronic kidney disease with stage 1 through stage 4 chronic kidney disease, or unspecified chronic kidney disease (principal); D64.9 Anemia, unspecified; N18.2 Chronic kidney disease, stage 2 (mild); Q61.4 Renal dysplasia

== ENCOUNTER 2019-01-10 21:31 | Inpatient (IN) ==
[2019-01-10] MEDS ORDERED: LORazepam 1 MG/2 ML VIAL IV STA (21:46)
--- NOTE | 2019-01-10 21:54 | Emergency Department Note ---
History of Present Illness General Chief complaint: Anxiety Stated complaint: CHEST PAIN History of Present Illness Maximum Pain Intensity: 0 This 78-year-old presents to the ER complaining of panic attack with high blood pressure and slight headache Location: Generalized Quality: Anxious Severity: Moderate Duration: Today Timing: Today Context: Symptoms got worse and patient came in Modifying factors: better with nothing; worse with stress Patient has a history of anxiety. His panic attacks have become more frequent. Patient saw his family doctor's office yesterday and was advised to follow-up with psychiatry. Patient denies chest pain, dyspnea, suicidal or homicidal ideations, fever, chills, flulike illness. Patient checked his blood pressure tonight and was high 200/100. Patient claims of mild headache. Home Medications Home Medications Medication Instructions Recorded Confirmed Type aspirin 81 mg tablet,delayed 81 mg PO Q OTHER DAY 05/26/18 01/10/19 History release doxazosin 2 mg tablet 4 mg PO HS tab 05/26/18 01/10/19 History dutasteride 0.5 mg-tamsulosin ER 1 cap PO HS 05/26/18 01/10/19 History 0.4 mg capsule ext.release 24hr mphas fluoxetine 40 mg capsule 40 mg PO QAM 05/26/18 01/10/19 History lansoprazole 30 mg capsule,delayed 30 mg PO QAM 05/26/18 01/10/19 History release lisinopril 40 mg tablet 40 mg PO QAM 05/26/18 01/10/19 History lorazepam 0.5 mg tablet 3 tab PO HS tab 05/26/18 01/10/19 History meloxicam 15 mg tablet 15 mg PO DAILY 05/26/18 01/10/19 History methimazole 5 mg tablet 5 mg PO HS 05/26/18 01/10/19 History multivitamin tablet 1 tab PO QAM 05/26/18 01/10/19 History nortriptyline 25 mg capsule 25 mg PO HS cap 05/26/18 01/10/19 History simvastatin 20 mg tablet 20 mg PO HS 05/26/18 01/10/19 History calcium carbonate-vitamin D3 1 tab PO BID 10/10/18 01/10/19 History [Calcium 600 + D(3)] docusate sodium 200 mg PO DAILY 10/10/18 01/10/19 History magnesium 250 mg PO QAM 10/10/18 01/10/19 History bumetanide 1 - 2 mg PO DAILY 01/01/19 01/10/19 History fentanyl 1 patch TOPICAL Q3D 01/01/19 01/10/19 History amlodipine [Norvasc] 10 mg PO DAILY 01/10/19 01/10/19 History buspirone 10 mg PO BID 01/10/19 01/10/19 History gabapentin 600 mg PO BID 01/10/19 01/10/19 History hydrocodone-acetaminophen 2 tabs PO HS PRN 01/10/19 01/10/19 History metoprolol succinate [Toprol XL] 50 mg PO QAM 01/10/19 01/10/19 History Allergies Allergy/AdvReac Type Severity Reaction Status Date / Time No Known Allergies Allergy Unverified 01/10/19 22:58 Past Med/Surg History Medical History Anxiety (Chronic) Chronic lower back pain (Chronic) Intractable low back pain (Chronic) Lumbago (Chronic) Family History Other No significant family history Social History Preferred Language: Chinese Feels Safe at Home: Yes Smoking Status: Former smoker Hx Alcohol Use: Yes (Last night) Hx Substance Use: No Review of Systems All systems reviewed & are unremarkable except as noted in HPI & below Physical Exam Vital Signs Vital Signs - 24 hr 01/10/19 21:33 01/10/19 21:53 01/10/19 22:23 Sepsis Recent Fever Within 48 Hours No Sepsis New/Unexplained Change in Mental Status No Sepsis Action Taken by Nursing No Action Required Pulse Rate 74 63 Pulse Rate [Finger] 64 62 Respiratory Rate 24 18 18 Blood Pressure 254/108 H Blood Pressure [Right Arm] 208/97 H 166/90 H Blood Pressure Mean 156 Blood Pressure Mean [Right Arm] 134 115 Pulse Oximetry 100 99 93 Oxygen Delivery Method Room Air Room Air Room Air 01/10/19 23:52 Sepsis Recent Fever Within 48 Hours Sepsis New/Unexplained Change in Mental Status Sepsis Action Taken by Nursing Pulse Rate Pulse Rate [Finger] 54 L Respiratory Rate 18 Blood Pressure Blood Pressure [Right Arm] 157/85 H Blood Pressure Mean Blood Pressure Mean [Right Arm] 109 Pulse Oximetry 97 Oxygen Delivery Method Room Air VITALS: Vitals are noted on the nurse's note and reviewed by myself. Vital signs hypertensive. GENERAL: Anxious appearing male shaking, in no acute distress, nondiaphoretic, well-developed well-nourished. SKIN: The skin was without rashes, erythema, edema, or bruising. There is no tenting of the skin. Capillary reflex less than 2 seconds. HEAD: Normocephalic atraumatic. EARS: External auditory canals clear, tympanic membranes pearly carlos without erythema or effusion bilaterally. EYES: Pupils equal round and reactive to light and accommodation. Conjunctivae without injection, sclerae without icterus. Extraocular movements intact. NOSE: Patent, turbinates without inflammation or discharge MOUTH: Mucous membranes moist. Pharynx without erythema or exudate. Uvula midline. Airway patent. Tongue does not deviate. NECK: Supple without nuchal rigidity. No lymphadenopathy. No thyromegaly. Cervical spine is nontender. No JVD. HEART: Regular rate and rhythm LUNGS: Clear to auscultation bilaterally without wheezes, rales or rhonchi. No retractions or accessory muscle use. ABDOMEN: Positive bowel sounds x 4. Normal tympanic percussion. Soft, nontender, without masses or organomegaly. Marques sign negative. No guarding or rebound tenderness. No CVA tenderness MUSCULOSKELETAL: No muscle atrophy, erythema, or edema noted. NEURO: Patient was alert and oriented to person place and time. Normal sensation to light and sharp touch. No focal neurological deficits. THE MENTAL STATUS EXAMINATION Overall appearance: Well-groomed Orientation: Patient alert and oriented Affect and mood: Anxious Thought content and process: Appropriate thought process Perception: No hallucinations Speech: Coherent speech but anxious Insight/Judgment: Good insight Cognition: Intact Course Administered Medications Discontinued Medications Lorazepam (Ativan) 1 mg in 2 mls @ 2 mls/min IV NOW STA Stop: 01/10/19 21:47 Last Admin: 01/10/19 21:55 Dose: 2 mls/min Documented by: [id number] Medical Decision Making Medical Records Attestation: I reviewed the patient's medical records. Home Medications Current Medication List: was personally reviewed by me Laboratory Data Attestation: I reviewed the patient's lab results. Result diagrams: 01/10/19 21:58 01/10/19 21:58 Lab Results 01/10/19 01/10/19 01/10/19 Range/Units 21:58 21:58 23:48 WBC 7.48 (4.8-10.8) K/uL RBC 4.34 L (4.7-6.1) M/uL Hgb 13.5 L (14.0-18.0) g/dL Hct 38.9 L (42-52) % MCV 89.6 (80-100) fL MCH 31.1 (25-34) pg MCHC 34.7 (32-36) g/dL RDW Std Deviation 41.3 (36.4-46.3) fL RDW Coeff of Mehnaz 12.7 (11.5-14.5) % Plt Count 197 (130-400) K/uL MPV 10.3 (7.4-10.4) fL Immature Gran % (Auto) 0.1 % Neut % (Auto) 50.8 % Lymph % (Auto) 35.7 % [place] % (Auto) 7.2 % Eos % (Auto) 5.5 % Baso % (Auto) 0.7 % Immature Gran # (Auto) 0.01 (0.00-0.02) K/uL Neut # (Auto) 3.80 (1.4-6.5) K/uL Lymph # (Auto) 2.67 (1.2-3.4) K/uL [place] # (Auto) 0.54 (0.11-0.59) K/uL Eos # (Auto) 0.41 (0-0.5) K/uL Baso # (Auto) 0.05 (0-0.2) K/uL Sodium 140 (136-145) mmol/L Potassium 3.9 (3.5-5.1) mmol/L Chloride 105 (98-107) mmol/L Carbon Dioxide 28 (21-32) mmol/L Anion Gap 8.0 (3-11) BUN 21 H (7-18) mg/dl Creatinine 1.29 (0.6-1.4) mg/dl Est Cr Clr Drug Dosing 52.3 ml/min Est GFR ( Amer) 61.6 Est GFR (Non-Af Amer) 53.1 BUN/Creatinine Ratio 16.6 (10-20) Glucose 87 (70-99) mg/dl Calcium 9.4 (8.5-10.1) mg/dl Magnesium 2.1 (1.8-2.4) mg/dl Total Bilirubin 0.4 (0.2-1) mg/dl AST 28 (15-37) U/L ALT 22 (12-78) U/L Alkaline Phosphatase 111 (45-117) U/L Troponin I < 0.015 0.067 H* (0-0.045) ng/ml Total Protein 6.9 (6.4-8.2) gm/dl Albumin 3.4 (3.4-5.0) gm/dl Globulin 3.5 (2.5-4.0) gm/dl Albumin/Globulin Ratio 1.0 (0.9-2) TSH 1.290 (0.300-4.500) uIu/ml Imaging Data Attestation: I personally reviewed and interpreted this imaging study as follows: Blood Pressure Blood Pressure Findings: Elevated blood pressure Blood Pressure Disposition: Referred to patients primary care provider [facility] Narrative Prior records/ancillary studies reviewed. Triage Nursing notes reviewed. Additional history obtained from family. The patient's history was concerning for possible psychiatric disturbance with elevated blood pressure and feeling anxious. Differential diagnosis: Etiologies such as mood disorder, infection, hypoglycemia, electrolyte abnormalities, cardiac sources, intracerebral event, toxicologic, neurologic, as well as others were entertained. Physical examination: As above ER treatment provided: Ativan, behavioral health consultation On reassessment the patient felt better. Diagnostic interpretation by me: EKG: Normal sinus, normal axis, occasional PVC, no acute ST-T wave changes, rate of 76. Impression normal sinus rhythm with occasional PVC interpreted by myself I think arrhythmia is unlikely. EKG shows normal sinus rhythm with no interval abnormalities such as QT prolongation or WPW. There are no findings to suggest Brugada syndrome. Cardiac monitoring in the emergency department reveals no tachycardic or bradycardic dysrhythmia. Hypertrophic cardiomyopathy was considered but there are no clear historical elements pointing toward this. EKG is not suggestive. The QRS voltage is not extremely large and there are no suggestive Q waves. The labs revealed first troponin was negative. Second was positive. Repeat EKG is unchanged. Imaging studies: Chest x-ray with no acute consolidation, pneumothorax or free air per my interpretation. CT head/brain wo con CT DOSE: 537.48 mGy.cm HISTORY: Headache MCRAE, HTN TECHNIQUE: Multiaxial CT images of the head were performed without the use of intravenous contrast. A dose lowering technique was utilized adhering to the principles of ALARA. Comparison: 10/10/2018 Findings: The paranasal sinuses and mastoid air cells are clear. The calvarium and skull base are intact. The ventricles and sulci are within normal limits. There is no mass, hematoma, midline shift, or acute infarct. Impression: No acute intracranial abnormality. HEART SCORE: Hx: high/mod/low suspicion: 0 ECG: ST depression/nonspecific changes/normal: 0 Age: Greater than 65/45-64/less than 45: 2 Risk factors: (Hypertension, hyperlipidemia, diabetes, coronary disease, tobacco use, cocaine use): 1 Troponin: Greater than 2 times normal limits/1-2 times normal limits/normal: 1 Total: 4 Consultation: A consultation was placed with hospitalist, Dr. Carcamo. The patient was evaluated by medicine in the emergency department and they felt admission was warranted. Exam and history seem consistent with chest pain with anxiety with elevated troponin. Patient will be evaluated by medicine. Repeat EKG is unchanged. Patient was neurovascularly and neurologically intact. His blood pressure came down after Ativan. Patient was advised to follow-up family care and psychiatry in a few days for his anxiety after he is discharged in the hospital. By the evaluation outlined above emergent etiologies such as infection, hypoglycemia, electrolyte abnormalities, intracerebral event, toxicologic, neurologic,as well as others were deemed relatively unlikely. It appears the patient is dealing with a psychiatric disturbance. The pt informed about the findings as listed above. All questions were answered and pleased with the treatment. The patient was referred back to their primary care physician for follow-up in 2 to 3 days for a recheck of the current condition. Case reviewed with my attending The chart was completed utilizing [employer] voice recognition software. Grammatical errors, random word insertions, pronoun errors, and incomplete sentences are an occassional consequence of this system due to software limitati ons, ambient noise, and hardware issues. Any formal questions or concerns about the content, text, or information contained within the body of this dictation should be directly addressed to the physician quality control assistant for clarification. Impression & Plan Chest pain, Acute anxiety, Elevated troponin, Hypertensive urgency Discharge Plan Visit Data Chief Complaint: Anxiety Stated Complaint: CHEST PAIN ED Provider: Jerry Melendez ED Midlevel Provider: Wilda Nagy Discharge Problem: Chest pain, Acute anxiety, Elevated troponin, Hypertensive urgency Patient Disposition: Being Evaluated by Hospitalist Condition: Fair Forms Stand Alone Forms: My [facility] Prescriptions Prescriptions: No Action aspirin 81 mg tablet,delayed release (DR/EC) 81 mg PO Q OTHER DAY RF: 0 doxazosin [Cardura] 2 mg tablet 4 mg PO HS RF: 0 dutasteride-tamsulosin [Yancy] 0.5-0.4 mg capsule, ER multiphase 24 hr 1 cap PO HS RF: 0 multivitamin tablet 1 tab PO QAM RF: 0 fluoxetine [Prozac] 40 mg capsule 40 mg PO QAM RF: 0 meloxicam [Mobic] 15 mg tablet 15 mg PO DAILY RF: 0 nortriptyline 25 mg capsule 25 mg PO HS RF: 0 lorazepam 0.5 mg tablet 3 tab PO HS RF: 0 simvastatin 20 mg tablet 20 mg PO HS RF: 0 lansoprazole [Prevacid] 30 mg capsule,delayed release(DR/EC) 30 mg PO QAM RF: 0 methimazole 5 mg tablet 5 mg PO HS RF: 0 lisinopril 40 mg tablet 40 mg PO QAM RF: 0 docusate sodium 100 mg Tablet 200 mg PO DAILY RF: 0 calcium carbonate-vitamin D3 [Calcium 600 + D(3)] 600 mg(1,500mg) -200 unit Tablet 1 tab PO BID RF: 0 magnesium 250 mg Tablet 250 mg PO QAM RF: 0 fentanyl 50 mcg/hr patch 72 hour 1 patch topical Q3D RF: 0 bumetanide 1 mg tablet 1 - 2 mg PO DAILY RF: 0 gabapentin 600 mg tablet 600 mg PO BID RF: 0 metoprolol succinate [Toprol XL] 50 mg tablet extended release 24 hr 50 mg PO QAM RF: 0 amlodipine [Norvasc] 10 mg tablet 10 mg PO DAILY RF: 0 hydrocodone-acetaminophen 7.5-325 mg tablet 2 tabs PO HS PRN (Reason: Pain) RF: 0 buspirone 10 mg tablet 10 mg PO BID RF: 0 Referrals Referrals: Harish Tran III, MD [Primary Care Provider] - Discharge Problem: Chest pain Qualifiers: Chest pain type: unspecified Qualified Code(s): R07.9 - Chest pain, unspecified
--- NOTE | 2019-01-10 22:09 | XRay Report ---
XR chest 1V portable CLINICAL HISTORY: Chest Pain dyspnea COMPARISON STUDY: 12/30/2018 FINDINGS: The bones soft tissues and hemidiaphragms are normal. The cardiomediastinal silhouette is n ormal. The lungs are clear. The pulmonary vasculature is normal. IMPRESSION: Negative chest. The above report was generated using voice recognition software. It may contain grammatical, syntax or spelling errors. Electronically signed by: Pal Huerta M.D. 01/10/2019 10:07 PM
[2019-01-10 22:10] LABS: Basophils # (auto) 0.05 K/uL (0-0.2); Basophils % (auto) 0.7 %; Eosinophils # (auto) 0.41 K/uL (0-0.5); Eosinophils % (auto) 5.5 %; Hematocrit (blood only) 38.9 % (42-52); Hemoglobin 13.5 g/dL (14.0-18.0); Immature Granulocytes # (auto) 0.01 K/uL (0.00-0.02); Immature Granulocytes % (auto) 0.1 %; Lymphocytes # (auto) 2.67 K/uL (1.2-3.4); Lymphocytes % (auto) 35.7 %; Mean Corpuscular Hgb Conc 34.7 g/dL (32-36); Mean Corpuscular Volume 89.6 fL (80-100); Mean Platelet Volume 10.3 fL (7.4-10.4); Monocytes # (auto) 0.54 K/uL (0.11-0.59); Monocytes % (auto) 7.2 %; Neutrophils % (auto) 50.8 %; Platelet Count 197 K/uL (130-400); RDW Coefficient of Variation 12.7 % (11.5-14.5); RDW Standard Deviation 41.3 fL (36.4-46.3); Red Blood Count 4.34 M/uL (4.7-6.1); White Blood Count 7.48 K/uL (4.8-10.8)
--- NOTE | 2019-01-10 22:16 | CT Scan Report ---
CT head/brain wo con CT DOSE: 537.48 mGy.cm HISTORY: Headache MCRAE, HTN TECHNIQUE: Multiaxial CT images of the head were performed without the use of intravenous contrast. A dose lowering technique was utilized adhering to the principles of ALARA. Comparison: 10/10/2018 Findings: The paranasal sinuses and mastoid air cells are clear. The calvarium and skull base are int act. The ventricles and sulci are within normal limits. There is no mass, hematoma, midline shift, or acute infarct. Impression: No acute intracranial abnormality. The above report was generated using voice recognition software. It may contain grammatical, syntax or spelling errors. Electronically signed by: Pal Huerta M.D. 01/10/2019 10:15 PM
[2019-01-10 22:30] LABS: Albumin Level 3.4 gm/dl (3.4-5.0); Aspartate Aminotransferase 28 U/L (15-37); BUN Creatinine Ratio 16.6 (10-20); Blood Urea Nitrogen 21 mg/dl (7-18); Calcium 9.4 mg/dl (8.5-10.1); Carbon Dioxide 28 mmol/L (21-32); Chloride 105 mmol/L (98-107); Creatinine Clr Calc Pharmacy 52.3 ml/min; Est GFR (African American) 61.6; Est GFR (Non-African American) 53.1; Glucose 87 mg/dl (70-99); Magnesium 2.1 mg/dl (1.8-2.4); Potassium 3.9 mmol/L (3.5-5.1); Sodium 140 mmol/L (136-145)
[2019-01-10 22:41] LABS: Alanine Aminotransferase 22 U/L (12-78); Alkaline Phosphatase 111 U/L (45-117); Bilirubin,Total 0.4 mg/dl (0.2-1); Globulin 3.5 gm/dl (2.5-4.0); Total Protein 6.9 gm/dl (6.4-8.2); Troponin I < 0.015 ng/ml (0-0.045)
--- NOTE | 2019-01-11 01:50 | Emergency Department Note ---
Entered by Dov Subramanian acting as a scribe for Jerry Melendez ED Visit Note The patient was seen and examined by myself in conjunction with the advanced care provider. I agree with the history, physical and findings as documented. Please see the note for disposition and details. . The scribe's documentation has been prepared under my direction and personally reviewed by me in its entirety. I confirm that the note above accurately reflects all work, treatment, procedures, and medical decision making performed by me.
--- NOTE | 2019-01-11 03:02 | History & Physical Report ---
Date of Service January 11, 2019 Assessment & Plan (1) HTN (hypertension): 78yoM with hx of anxiety/panic attacks, HTN, HLD, chronic low back pain (hx of spinal stenosis and lumbar herniated discs), R cystic kidney, CKD2, Hyperthyroidism, and BPH presents with concern for panic attack around 8pm tonight. Pt had vomiting and headache all day today and had a panic attack when he realized his BP is 220s/80s. He initially complained of chest discomfort in the ED. Found to have hypertenisve urgency and elevated troponin without EKG changes. BP improved after receiving ativan in the ED. Elevated troponin: concern for ND vs. demand ischemia in the setting of hypertensive urgency -EK SR no ST-Twave changes; repeat 52 sinus cecilia QTc [address]-T wave changes -Trop on admission <0.015 however 1 hr later elevated to 0.067 -CXR negative -Started on heparin drip with bolus -Cardiology consulted - Saw Dr. Arceo 12/2016 for hypertension -Trend troponin -ECHO ordered Hx of HTN/HLD: Hypertensive Urgency -Bp on arrival was 254/108 -improved after getting ativan 1mg IV x 1 in the ED -Now 164/82 -Ct head negative -Continue home lisinopril, metoprolol, amlodopine, aspirin, simvastatin Hx of R kidney cystic disease and CKD -BUN/Cr 21/1.29 GFR 53 LE edema: pt unsure of diagnosis - chronic venous stasis vs. possible CHF -continue bumetanide Mood Disorder: Anxiety/Panic attacks -Continue home prozac, nortriptyline -Consider ativan PRN for any anxiety attacks Chronic back pain (hx of lumbar herniated disc and spinal stenosis) -Continue home fentanyl patch, gabapentin, and Voss PRN -Hold mobic GERD -Continue home prevacid BPH -Continue dutasteride-tamsulosin -Hold doxazosin DVT prop: on heparin drip Code: Full Dispo: PCU telemetry (2) Anxiety: (3) Elevated troponin: (4) Hypertensive urgency: (5) Opioid dependence: (6) Chronic lower back pain: (7) CKD (chronic kidney disease): (8) HLD (hyperlipidemia): History of Present Illness Chief Complaint: panic attack Primary Care Provider: Harish Tran MD 78yoM with hx of anxiety/panic attacks, HTN, HLD, chronic low back pain (hx of spinal stenosis and lumbar herniated discs), R cystic kidney, CKD2, Hyperthyroidism, and BPH presents with concern for panic attack around 8pm tonight. Pt reports having vomiting and slight headache all day today. He felt ill and had a feeling he might have a panic attack because whenever he has not felt well he has had a panic attack but he resisted. Around 8pm, he checked his BP twice which was both times 220s/80s and he says he finally had a panic attack and came here. Reports hx of panic attacks for 15 years despite having a good and stable life. He denies any chest discomfort or sob. However, reminded him that he was complaining of chest discomfort when he initially arrived in the middle of his chest. Per , pt has had some memory issues for the past month. Denies hx of previous ND, or stroke. Had seen Dr. Arceo once few years ago and told his heart is fine. Denies any f/c, dizziness, diaphoresis, pain in arms or neck, sob, abdominal pain, d/c, dysuria, hematuria, hematochezia, melena. 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; malignant melanoma 1978 Social Hx: never smoked, drinks 3-5 beers a week Fhx: mother had heart attack at age 74, brother had heart attack at 69 and has HTN, colon cancer, ovarian cancer Allergies Allergy/AdvReac Type Severity Reaction Status Date / Time No Known Allergies Allergy Unverified 01/10/19 22:58 Home Medications Home Medications Medication Instructions Recorded Confirmed Type aspirin 81 mg tablet,delayed 81 mg PO Q OTHER DAY 05/26/18 01/10/19 History release doxazosin 2 mg tablet 4 mg PO HS tab 05/26/18 01/10/19 History dutasteride 0.5 mg-tamsulosin ER 1 cap PO HS 05/26/18 01/10/19 History 0.4 mg capsule ext.release 24hr mphas fluoxetine 40 mg capsule 40 mg PO QAM 05/26/18 01/10/19 History lansoprazole 30 mg capsule,delayed 30 mg PO QAM 05/26/18 01/10/19 History release lisinopril 40 mg tablet 40 mg PO QAM 05/26/18 01/10/19 History lorazepam 0.5 mg tablet 3 tab PO HS tab 05/26/18 01/10/19 History meloxicam 15 mg tablet 15 mg PO DAILY 05/26/18 01/10/19 History methimazole 5 mg tablet 5 mg PO HS 05/26/18 01/10/19 History multivitamin tablet 1 tab PO QAM 05/26/18 01/10/19 History nortriptyline 25 mg capsule 25 mg PO HS cap 05/26/18 01/10/19 History simvastatin 20 mg tablet 20 mg PO HS 05/26/18 01/10/19 History calcium carbonate-vitamin D3 1 tab PO BID 10/10/18 01/10/19 History [Calcium 600 + D(3)] docusate sodium 200 mg PO DAILY 10/10/18 01/10/19 History magnesium 250 mg PO QAM 10/10/18 01/10/19 History bumetanide 1 - 2 mg PO DAILY 01/01/19 01/10/19 History fentanyl 1 patch TOPICAL Q3D 01/01/19 01/10/19 History amlodipine [Norvasc] 10 mg PO DAILY 01/10/19 01/10/19 History buspirone 10 mg PO BID 01/10/19 01/10/19 History gabapentin 600 mg PO BID 01/10/19 01/10/19 History hydrocodone-acetaminophen 2 tabs PO HS PRN 01/10/19 01/10/19 History metoprolol succinate [Toprol XL] 50 mg PO QAM 01/10/19 01/10/19 History Past Med/Surg History Medical History Anxiety (Chronic) Chronic lower back pain (Chronic) Intractable low back pain (Chronic) Lumbago (Chronic) Family History Other No significant family history Social History Preferred Language: Turkmen Feels Safe at Home: Yes Smoking Status: Former smoker Hx Alcohol Use: Yes (Last night) Hx Substance Use: No Review of Systems Review of Systems: As per HPI Physical Exam Physical Exam: General: In NAD CV: RRR, no m/r/g PULM: CTAB equal breath sounds bilaterally ABDOMEN: +BS, non-distended, non-tender to palpation in all quadrants LE: no calf TTP, 1+ LE edema Results & Data Vital Signs (Past 12 Hours) Vital Signs Pulse Pulse Resp BP BP Pulse Ox 01/11/19 02:25 53 L 18 164/82 H 97 01/10/19 23:52 54 L 18 157/85 H 97 01/10/19 22:23 62 18 166/90 H 93 01/10/19 21:53 63 64 18 208/97 H 99 01/10/19 21:33 74 24 254/108 H 100 Laboratory Results Abnormal lab results 01/10/19 01/10/19 01/10/19 Range/Units 21:58 21:58 23:48 RBC 4.34 L (4.7-6.1) M/uL Hgb 13.5 L (14.0-18.0) g/dL Hct 38.9 L (42-52) % BUN 21 H (7-18) mg/dl Troponin I 0.067 H* (0-0.045) ng/ml Diagnostic Findings XR chest 1V portable CLINICAL HISTORY: Chest Pain dyspnea COMPARISON STUDY: 12/30/2018 FINDINGS: The bones soft tissues and hemidiaphragms are normal. The cardiomediastinal silhouette is normal. The lungs are clear. The pulmonary vasculature is normal. IMPRESSION: Negative chest. CT head/brain wo con CT DOSE: 537.48 mGy.cm HISTORY: Headache MCRAE, HTN TECHNIQUE: Multiaxial CT images of the head were performed without the use of intravenous contrast. A dose lowering technique was utilized adhering to the principles of ALARA. Comparison: 10/10/2018 Findings: The paranasal sinuses and mastoid air cells are clear. The calvarium and skull base are intact. The ventricles and sulci are within normal limits. There is no mass, hematoma, midline shift, or acute infarct. Impression: No acute intracranial abnormality. Code Status & VTE Plan Code Status Full VTE Prophylaxis Plan VTE Prophylaxis will be ordered: Yes Supervising Physician Co-Signing Physician Notes Pt seen/examined with resident MD Nicolas Shane. Orders and plan of admission formulated with resident. 78 y/o M Hx anxiety/panic attacks, HTN, HLD, CKD II, Hyperthyroidism, LE edema, BPH, lower back pain with narcotic-dependence. Presents with a headache, vomiting and a panic attack which occurred after he checked his blood pressure and noted that it was high. His stated that he had c/o shest pain or tightness as well, which he denied at the time of admission. A trop was checked in the ER however and was (+). EKG did not support acute ischemia. OE: AAO x 3 S1,2 R CTAB NT, ND No CCE No deficits P: The pt does have risk factors for coronary disease in addition to a (+) trop so that we will fully anticoagulate. ASA and a statin provided - cont B manuel Cause of his LE edema is not known and he was scheduled for an echo 01/14 which we will order for AM Pt will remain on his narcotics for CP and Lorazepam and Buspar for his anxiety. Cardiology consult is pending Resident Activity Tracking Resident Involvement: Resident Care Provided Care Provided: Adult Hospital Medicine (1) HTN (hypertension) Hypertension type: unspecified Qualified Code(s): I10 - Essential (primary) hypertension
[2019-01-11] MEDS ORDERED: NITROGLYCERIN SL 0.4 MG/TAB TAB SL PRN (03:52)
[2019-01-11] MEDS ORDERED: HYDROCODONE/ACETAMINOPHEN 7.5/325MG TAB PO PRN (03:52)
[2019-01-11] MEDS ORDERED: ONDANSETRON INJ 2 MG/ML 2 ML VIAL IV PRN (03:52)
[2019-01-11] MEDS ORDERED: HydrALAZINE HCL 20 MG/ML VIAL IV STA (04:04)
[2019-01-11 04:51] LABS: Basophils # (auto) 0.04 K/uL (0-0.2); Basophils % (auto) 0.6 %; Eosinophils # (auto) 0.45 K/uL (0-0.5); Eosinophils % (auto) 6.6 %; Hematocrit (blood only) 34.6 % (42-52); Hemoglobin 11.8 g/dL (14.0-18.0); Immature Granulocytes # (auto) 0.01 K/uL (0.00-0.02); Immature Granulocytes % (auto) 0.1 %; Lymphocytes # (auto) 2.49 K/uL (1.2-3.4); Lymphocytes % (auto) 36.4 %; Mean Corpuscular Hgb Conc 34.1 g/dL (32-36); Mean Corpuscular Volume 90.3 fL (80-100); Mean Platelet Volume 10.3 fL (7.4-10.4); Monocytes % (auto) 10.2 %; Neutrophils # (auto) 3.16 K/uL (1.4-6.5); Neutrophils % (auto) 46.1 %; Platelet Count 183 K/uL (130-400); RDW Coefficient of Variation 12.9 % (11.5-14.5); RDW Standard Deviation 42.5 fL (36.4-46.3); Red Blood Count 3.83 M/uL (4.7-6.1); White Blood Count 6.85 K/uL (4.8-10.8)
[2019-01-11 05:04] LABS: Partial Thromboplastin Time 27.1 Seconds (21.0-31.0)
[2019-01-11 05:09] LABS: Albumin Level 2.9 gm/dl (3.4-5.0); BUN Creatinine Ratio 18.4 (10-20); Calcium 8.7 mg/dl (8.5-10.1); Creatinine Clr Calc Pharmacy 58.6 ml/min; Est GFR (African American) 71.5; Est GFR (Non-African American) 61.7; Potassium 3.8 mmol/L (3.5-5.1)
[2019-01-11] MEDS ORDERED: LORazepam 1 MG/2 ML VIAL IV STA (05:17)
[2019-01-11 05:18] LABS: Bilirubin,Total 0.4 mg/dl (0.2-1); Total Protein 5.9 gm/dl (6.4-8.2); Troponin I 0.125 ng/ml (0-0.045)
[2019-01-11] MEDS ORDERED: HEPARIN IV BOLUS 6,000 UNITS in SYRINGE 0 ML IV ONE (05:30)
[2019-01-11] MEDS ORDERED: Heparin Adult STANDARD Wt-Based Dextrose 5% 25,000 units/500 mL IV SCH (05:30)
[2019-01-11] MEDS: CHECK FENTANYL PATCH PLACEMENT SCH ×3 (08:32→23:42)
[2019-01-11] MEDS: CALCIUM 600MG + VIT D 400 IU TAB PO SCH ×2 (08:35→19:46)
[2019-01-11] MEDS: DOCUSATE SODIUM 100 MG CAP PO SCH (08:36)
[2019-01-11] MEDS: MAGNESIUM OXIDE 400 MG TAB PO SCH (08:36)
[2019-01-11] MEDS: MULTIVITAMIN TAB PO SCH (08:37)
[2019-01-11] MEDS: AMLODIPINE BESYLATE 5 MG TAB PO SCH (08:37)
[2019-01-11] MEDS: GABAPENTIN 600 MG TAB PO SCH ×2 (08:37→19:46)
[2019-01-11] MEDS: LANSOPRAZOLE 30 MG SOLTAB PO SCH (08:37)
[2019-01-11] MEDS: LISINOPRIL 40 MG TAB PO SCH (08:38)
[2019-01-11] MEDS: FLUOXETINE HCL 20 MG CAP PO SCH (08:38)
[2019-01-11] MEDS ORDERED: Nursing to Pharmacy Communication ONE (08:59)
[2019-01-11] MEDS ORDERED: fentaNYL 50 MCG/HR TDSY TD SCH (09:00)
[2019-01-11] MEDS: LORazepam 0.5 MG TAB PO PRN ×2 (09:26→18:33)
[2019-01-11] MEDS: BUMETANIDE 1 MG TAB PO SCH (09:26)
[2019-01-11] MEDS: METOPROLOL SUCC 50MG EXT REL TAB PO SCH (09:27)
[2019-01-11] MEDS: HYDROCODONE/ACETAMINOPHEN 7.5/325MG TAB PO PRN ×2 (11:17→17:11)
--- NOTE | 2019-01-11 12:35 | Hospitalist Progress Note ---
Date of Service January 11, 2019 Assessment & Plan (1) HTN (hypertension): Currently on multiple medications. Blood pressure has improved since admission. Will await cardiology consultation and recommendations Present on Admission?: Yes (2) Anxiety: PRN Ativan has been ordered. Panic attacks have been a problem in the past. He has requested to see psychiatry but I told him this should be done on an outpatient basis. Present on Admission?: Yes (3) Elevated troponin: No regional wall motion abnormalities noted on cardiac echo. Await cardiology consultation (4) Hypertensive urgency: Blood pressure has improved since admission. Will follow Present on Admission?: Yes (5) Opioid dependence: Present on Admission?: Yes (6) Chronic lower back pain: Present on Admission?: Yes (7) CKD (chronic kidney disease): Present on Admission?: Yes (8) HLD (hyperlipidemia): Stable Present on Admission?: Yes Subjective The patient is alert and somewhat anxious. Ativan will be administered as needed. Diet has been ordered. Cardiac echo noted with left ventricular hypertrophy with normal ejection fraction. Cardiology consultation is pending. Troponin has trended upwards. Will await cardiology opinion. No acute EKG changes noted. Review of Systems Review of Systems: All systems reviewed & are unremarkable except as noted in HPI & below Psychiatric: + anxiety Physical Exam Constitutional: WD/WN, vitals as above Eyes: PERRL, conjunctivae normal, anicteric sclerae ENMT: external ear and nose normal, oropharynx normal Neck: trachea midline, no thyromegaly Respiratory: normal respiratory effort, lungs clear to auscultation Cardiovascular: RRR, no murmur, no edema Gastrointestinal (Abdomen): normal bowel sounds, soft, nontender, no hepatosplenomegaly Musculoskeletal: no cyanosis or clubbing, extremities motor strength 5/5 Skin: no rashes, warm and dry Neurologic: CN's II-XI intact bilaterally; no focal motor deficits Psychiatric: Affect: + anxious affect Results & Data Vital Signs (Past 12 Hours) Vital Signs Temp Pulse Pulse Resp BP Pulse Ox 01/11/19 11:32 36.4 C L 55 L 17 145/74 H 94 01/11/19 10:19 152/77 H 01/11/19 07:05 36.8 C 58 L 18 171/90 H 97 01/11/19 05:02 176/84 H 01/11/19 04:47 60 01/11/19 04:06 36.5 C 57 L 20 210/95 H 97 01/11/19 02:25 53 L 18 164/82 H 97 Laboratory Results 01/11/19 04:15 01/11/19 04:15 (1) HTN (hypertension) Hypertension type: unspecified Qualified Code(s): I10 - Essential (primary) hypertension
[2019-01-11] MEDS ORDERED: KETOROLAC TROMETHAMINE 15 MG/ML VIAL IV ONE (13:04)
[2019-01-11] MEDS: MoRPHine SULFATE 2 MG/ML CARP IV PRN ×2 (14:30→19:56)
[2019-01-11] MEDS ORDERED: LORazepam 0.5 MG TAB PO PRN (19:21)
--- NOTE | 2019-01-11 20:38 | Consultation Report ---
DATE OF CONSULTATION: 01/11/2019 REQUESTING: Kai Shi MD STAVE HEWER: Scar Ca D.O., [facility]. REASON FOR CONSULTATION: Minimally elevated troponin, hypertensive urgency in the face of anxiety. Dear Dr. Shi, It is a pleasure to see Kai today in consultation with regards to his minimally elevated troponin, likely secondary to demand ischemia, hypertensive urgency secondary to panic attacks, hypertension, and lower extremity edema. As you know, he is a very pleasant 78-year-old gentleman who has been dealing with worsening panic attacks. He notes in 2017 he ruptured 5 discs in his back and since then he has been very limited in his ability to ambulate. He climbs a flight of stairs, sometimes he has some shortness of breath. His biggest complaint though is weakness in his legs. He denies any lightheadedness or dizziness. He has a hard time getting up off the floor out of a chair due to his leg weakness. Denies any palpitations or fluttering or feeling his heart racing. He does have lower extremity edema and has been on diuretics with some improvement. He denies any PND, orthopnea, lightheadedness, dizziness, presyncope or syncope. Yesterday, he was having a very bad day. He had some vomiting in the morning. He was nauseous all day. He had a headache and when he took his blood pressure and it was 220 systolic, he started to have a panic attack. He subsequently came to the Emergency Room. He continues to have a mild headache. His blood pressures are improved with blood pressure medication and anxiolytics. His is at the bedside and she confirms the history. The rest of review of systems otherwise negative. PAST MEDICAL HISTORY: 1. Panic attacks. 2. Hypertension. 3. 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 4. Chronic lower extremity edema, likely secondary to calcium channel blockers and dependent edema. 5. Anxiety and panic attacks. 6. Chronic back pain secondary to lumbar herniated disk and spinal stenosis. 7. GERD. 8. BPH. 9. Opioid dependence. SOCIAL HISTORY: Denies any tobacco. He drinks 3-5 beers a week. He is and retired. FAMILY HISTORY: Mom had a heart attack in her 70s. Brother had heart attack at the age of 69 and has hypertension. There is family history of colon cancer and ovarian cancer. ALLERGIES: No known drug allergies. MEDICATIONS: Reviewed in electronic medical record. PHYSICAL EXAMINATION: GENERAL: He is awake, alert, oriented x3. He does appear anxious. He has an odd affect. VITAL SIGNS: His heart rate is 58, blood pressure 152/77, respirations 18, sat 97%. HEENT: 2+ carotid upstrokes, no evidence of carotid bruits. Jugular venous pressure appeared normal. His sclerae are anicteric. His hearing is normal with the use of hearing aids. LUNGS: Clear to auscultation bilaterally. No rales, rhonchi or wheezing. HEART: Regular rate and rhythm. No appreciable murmurs, rubs or gallops. ABDOMEN: Soft, nontender, nondistended. Positive bowel sounds. EXTREMITIES: No clubbing or cyanosis. He has mild bilateral lower extremity edema to the mid tibia. PSYCHIATRIC: He appears anxious with an odd affect. NEUROLOGIC: He is awake, alert and oriented x3. DIAGNOSTIC STUDIES: Echocardiogram, normal biventricular size and function, normal left atrial pressures, mild aortic insufficiency. EKG from 1:00 in the morning, sinus bradycardia, nonspecific T-wave changes in the inferior leads. LABORATORY STUDIES: Hemoglobin 11.8, platelet count of 183. First troponin was negative, second 0.067, the third is 0.125. His albumin is 2.9, BUN 21, creatinine 1.14. Sodium 138, potassium 3.8. IMPRESSION: 1. Slightly elevated troponin, likely on the basis of demand ischemia. I do not believe that this represents an acute coronary syndrome. His echocardiogram is normal. There are no wall motion abnormalities. His EKG does not reveal any acute ischemic changes. His heparin can be stopped. At this point, I would not recommend any further cardiac testing. 2. Lower extremity edema, likely a combination of dependent edema as well as high dose amlodipine as an outpatient. His amlodipine was recently discontinued, this should help as well as he should elevate his feet when he is sitting and consider wearing knee high compression stockings. 3. Hypertension. His medical regimen has been adjusted, although I usually do not use clonidine, he may benefit from clonidine from a psychological standpoint to help stabilize his mood, we will just have to watch that he does not get excessively bradycardic with the use of clonidine and metoprolol. If he has improvement in his affect, he could always reduce his Toprol. I also discussed that he needs to consider seeing a psychologist or psychiatrist as an outpatient as his anxiety and panic attacks seem to be becoming more progressive. Thank you for allowing us to participate in his care. All questions were answered in detail.
[2019-01-11] MEDS ORDERED: DOXAZosin MESYLATE 4 MG TAB PO SCH (21:00)
[2019-01-11] MEDS ORDERED: DOXAZosin MESYLATE TAB 2 MG TAB PO SCH (21:00)
[2019-01-11] MEDS ORDERED: SIMVASTATIN 20 MG TAB PO SCH (21:00)
[2019-01-11] MEDS ORDERED: NORTRIPTYLINE HCL 25 MG CAP PO SCH (21:00)
[2019-01-12] MEDS ORDERED: LORazepam 1 MG/2 ML VIAL IV STA (04:35)
[2019-01-12] MEDS ORDERED: OLANZapine 10 MG/2.1 ML SDV IM STA (04:38)
[2019-01-12] MEDS: METOPROLOL SUCC 50MG EXT REL TAB PO SCH (08:07)
[2019-01-12] MEDS: GABAPENTIN 600 MG TAB PO SCH (08:07)
[2019-01-12] MEDS: AMLODIPINE BESYLATE 5 MG TAB PO SCH (08:09)
[2019-01-12] MEDS: MULTIVITAMIN TAB PO SCH (08:09)
[2019-01-12] MEDS: DOCUSATE SODIUM 100 MG CAP PO SCH (08:09)
[2019-01-12] MEDS: LISINOPRIL 40 MG TAB PO SCH (08:09)
[2019-01-12] MEDS: MAGNESIUM OXIDE 400 MG TAB PO SCH (08:10)
[2019-01-12] MEDS: FLUOXETINE HCL 20 MG CAP PO SCH (08:10)
[2019-01-12] MEDS: LANSOPRAZOLE 30 MG SOLTAB PO SCH (08:11)
[2019-01-12] MEDS: BUMETANIDE 1 MG TAB PO SCH (08:11)
[2019-01-12] MEDS: CALCIUM 600MG + VIT D 400 IU TAB PO SCH (08:12)
[2019-01-12] MEDS: CHECK FENTANYL PATCH PLACEMENT SCH (08:12)
[2019-01-12] MEDS ORDERED: LORazepam 1 MG/2 ML VIAL IV PRN (08:59)
[2019-01-12] MEDS ORDERED: ASPIRIN 81 MG ECTAB PO SCH (09:00)
[2019-01-12] MEDS ORDERED: OLANZapine 10 MG/2.1 ML SDV IM PRN (09:01)
--- NOTE | 2019-01-12 15:41 | Discharge Summary ---
Date of Service January 12, 2019 Admission HPI Per Admitting Provider 78yoM with hx of anxiety/panic attacks, HTN, HLD, chronic low back pain (hx of spinal stenosis and lumbar herniated discs), R cystic kidney, CKD2, Hyperthyroidism, and BPH presents with concern for panic attack around 8pm tonight. Pt reports having vomiting and slight headache all day today. He felt ill and had a feeling he might have a panic attack because whenever he has not felt well he has had a panic attack but he resisted. Around 8pm, he checked his BP twice which was both times 220s/80s and he says he finally had a panic attack and came here. Reports hx of panic attacks for 15 years despite having a good and stable life. He denies any chest discomfort or sob. However, reminded him that he was complaining of chest discomfort when he initially arrived in the middle of his chest. Per , pt has had some memory issues for the past month. Denies hx of previous CA, or stroke. Had seen Dr. Arceo once few years ago and told his heart is fine. Denies any f/c, dizziness, diaphoresis, pain in arms or neck, sob, abdominal pain, d/c, dysuria, hematuria, hematochezia, melena. 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; malignant melanoma 1978 Social Hx: never smoked, drinks 3-5 beers a week Fhx: mother had heart attack at age 74, brother had heart attack at 69 and has HTN, colon cancer, ovarian cancer Principal Diagnosis Anxiety attacks leading to hypertensive urgency Discharge Exam Constitutional WD/WN, vitals as above Eyes PERRL, conjunctivae normal, anicteric sclerae ENMT external ear and nose normal, oropharynx normal Neck trachea midline, no thyromegaly Respiratory normal respiratory effort, lungs clear to auscultation Cardiovascular RRR, no murmur, no edema Gastrointestinal (Abdomen) normal bowel sounds, soft, nontender, no hepatosplenomegaly Musculoskeletal no cyanosis or clubbing, extremities motor strength 5/5 Skin no rashes, warm and dry Neurologic CN's II-XI intact bilaterally; no focal motor deficits Psychiatric Affect: + anxious affect Discharge Data Allergies Allergy/AdvReac Type Severity Reaction Status Date / Time No Known Allergies Allergy Unverified 01/10/19 22:58 Consultations 01/11/19 01:25 ED Decision to Admit Stat 01/11/19 03:52 Consult Cardiology Routine Ordered Studies 01/10/19 21:46 CT head/brain wo con Stat Hospital Course (1) HTN (hypertension): Currently on multiple medications. Blood pressure has improved since admission. - Cardiology (Dr. Ca) felt this was anxiety-related hypertensive urgency. No further inpatient testing. The patient demanded discharge on Saturday morning, so no BP regimen was adjusted. - Increased his anxiety medication (buspirone) with encouragement for quick follow up as outpatient. (2) Anxiety: PRN Ativan has been ordered. Panic attacks have been a problem in the past. - Increased buspirone as above to 15mg PO BID (3) Elevated troponin: No regional wall motion abnormalities noted on cardiac echo. Likely hypertensive urgency from his high BP. (4) Hypertensive urgency: Blood pressure has improved since admission. Will follow (5) Opioid dependence: (6) Chronic lower back pain: (7) CKD (chronic kidney disease): (8) HLD (hyperlipidemia): Stable Total Time Total Time Spent Total Time Spent (In Minutes): 35 Total Time Includes: Examination of the Patient, Discharge Planning and Communication With Other Providers Discharge Plan Discharge Items Patient Disposition: Home - Self-Care Reason For Visit: ANXIETY Discharge Diagnosis: Anxiety and high blood pressure Condition: Fair Discharge Goals: Decrease discomfort and Improve function Activity: Resume your previous activity Non-emergency contact: Primary Care Provider and Mercantile Agent Call non-emergency contact if: you have any medication questions and your symptoms worsen Follow-up/Referrals: Harish Tran III, MD [Primary Care Provider] - 01/16/19 11:00 am (Please, follow up at Dr. Tran's office with his engineer third assistant, Delfina Youngblood, on SaturdayJanuary 16 at 11:00 am. *If you need to change this appointment, call the office at [phone].) Diet: Heart Healthy [facility] Provider Instructions: Mr. Wilkerson, You were in the hospital for high blood pressure that caused stress on your heart. You were seen by the heart doctor without a need for further testing. The high blood pressure is being caused by episodes of anxiety. We are adjusting your medications to try to prevent episodes of stress. Please follow up with Dr. Tran for further help with your anxiety and also with your memory. We also increased your buspirone to 15 mg twice a day (from 10 mg) in an effort to help your anxiety. Prescriptions: New buspirone 15 mg tablet 15 mg PO BID Qty: 60 RF: 0 Continued aspirin 81 mg tablet,delayed release (DR/EC) 81 mg PO Q OTHER DAY RF: 0 doxazosin [Cardura] 2 mg tablet 4 mg PO HS RF: 0 dutasteride-tamsulosin [Yancy] 0.5-0.4 mg capsule, ER multiphase 24 hr 1 cap PO HS RF: 0 multivitamin tablet 1 tab PO QAM RF: 0 fluoxetine [Prozac] 40 mg capsule 40 mg PO QAM RF: 0 meloxicam [Mobic] 15 mg tablet 15 mg PO DAILY RF: 0 nortriptyline 25 mg capsule 25 mg PO HS RF: 0 simvastatin 20 mg tablet 20 mg PO HS RF: 0 lansoprazole [Prevacid] 30 mg capsule,delayed release(DR/EC) 30 mg PO QAM RF: 0 methimazole 5 mg tablet 5 mg PO HS RF: 0 lisinopril 40 mg tablet 40 mg PO QAM RF: 0 docusate sodium 100 mg Tablet 200 mg PO DAILY RF: 0 calcium carbonate-vitamin D3 [Calcium 600 + D(3)] 600 mg(1,500mg) -200 unit Tablet 1 tab PO BID RF: 0 magnesium 250 mg Tablet 250 mg PO QAM RF: 0 fentanyl 50 mcg/hr patch 72 hour 1 patch topical Q3D RF: 0 bumetanide 1 mg tablet 1 - 2 mg PO DAILY RF: 0 gabapentin 600 mg tablet 600 mg PO BID RF: 0 metoprolol succinate [Toprol XL] 50 mg tablet extended release 24 hr 50 mg PO QAM RF: 0 amlodipine [Norvasc] 10 mg tablet 10 mg PO DAILY RF: 0 hydrocodone-acetaminophen 7.5-325 mg tablet 2 tabs PO HS PRN (Reason: Pain) RF: 0 Discontinued lorazepam 0.5 mg tablet 3 tab PO HS RF: 0 Stand-Alone Forms: [facility] Discharge Orders: Discharge Order (Routine); Ordered 01/12/19 Ordered By: Sumanth Sexton Admission Data Admit Date/Time: 01/11/19 02:38 Attending Provider: Sumanth Sexton Admit Provider: Prince Carcamo Primary Care Provider: Harish Tran III Other Providers: Prince Carcamo ; Scar Ca Service: Telemetry Other Interventions: Discharge Summary Assessment (RN) Last Done: 01/12/19 09:51 DC Date/Time DO NOT enter until pt leaves facility: 01/12/19 10:06
--- OUTSIDE RECORDS SUMMARY | 2019-01-12 22:41 | External Medical Summary | Continuity of Care Document ---
:1940 Author Name Chris Pandey, Provider Address Unavailable Unavailable , Care Team Providers Name Role Phone Chelsea CORONA M.D., Harish Ontiveros Unavailable [email or web address] Sorin CHU Unavailable [email or web address] Rama Sheriff PA-C Unavailable [email or web address] Lluvia Pandey Unavailable [email or web address] Simon MARROQUIN Unavailable [email or web address] Thor Ortiz M.D. Unavailable [email or web address] CHLOE TRAN M.D., Lobo Unavailable Unavailable Vince GARVIN Unavailable Unavailable Nery JONES Unavailable Unavailable [facility] Unavailable Unavailable Taylor GARDNER Unavailable Unavailable [facility] BOWLING Unavailable Unavailable Unavailable Unavailable Unavailable Problems Ankle joint pain (719.47) (M25.579) Tremor (781.0) (R25.1) Gait disturbance (781.2) (R26.9) Actinic keratosis (702.0) (L57.0) Routine history and physical examination of adult (V70.0) (Z 00.00) Impaired fasting glucose (790.21) (R73.01) Fibromyalgia (729.1) (M79.7) Spinal stenosis (724.00) (M48.00) Leg pain (729.5) (M79.606) Calf pain (729.5) (M79.669) Bilateral renal cysts (753.10) (N28.1) Change in bowel habits (787.99) (R19.4) Pruritus scroti (698.1) (L29.1) Abnormality of gait (781.2) (R26.9) Insomnia (780.52) (G47.00) Local skin infection (686.9) (L08.9) Arthralgia of multiple sites (719.49) (M25.50) Myalgia and myositis (729.1) Limb pain (729.5) (M79.609) Cellulitis of hand (682.4) (L03.119) Sialoadenitis (527.2) (K11.20) Abnormal finding on imaging (793.99) (R93.89) Salivary gland disorder (527.9) (K11.9) Esophageal reflux (530.81) (K21.9) History of allergy (V15.09) (Z88.9) Skin symptoms (782.9) (R23.9) Joint pain, hip (719.45) (M25.559) Pain in hand (729.5) (M79.643) Neck pain (723.1) (M54.2) Nonvenomous Insect Bite (E906.4) Reported Being Scratched Or Bitten By A Cat Anxiety (300.00) (F41.9) Panic attacks (300.01) (F41.0) Chronic kidney disease (CKD), 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 ) Edema (782.3) (R60.9) Low back pain (724.2) (M54.5) Hypercholesterolemia (272.0) (E78.00) Hyperthyroidism (242.90) (E05.90) Seborrheic keratosis (702.19) (L82.1) Multiple benign nevi (216.9) (D22.9) History of SCC (squamous cell carcinoma) of skin (V10.83) (Z 85.828) History of basal cell carcinoma (V10.83) (Z85.828) Personal history of malignant melanoma of skin (V10.82) (Z85 .820) History of dysplastic nevus (V13.3) (Z86.018) Claudication (443.9) (I73.9) Memory loss (780.93) (R41.3) Hypertension (401.9) (I10) Anemia (285.9) (D64.9) Benign hypertension with CKD (chronic ki dney disease), stage II (403.10) (I12.9) Former smoker (V15.82) (Z87.891) 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) Neoplasm of uncertain behavior of skin (238.2) (D48.5) History of melanoma (V10.82) (Z85.820) Atypical nevi (216.9) (D22.9) Cough (786.2) (R05) Left hip pain (719.45) (M25.552) Abdominal bloating (787.3) (R14.0) Abnormal blood chemistry (790.6) (R79.9) Elevated liver enzymes (790.5) (R74.8) History of squamous cell carcinoma in situ of skin (V13.89) (Z86.008) 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) Loss of balance (781.99) (R26.89) Wound, open, forearm (881.00) (S51.809A) Bilateral lower extremity edema (782.3) (R60.0) 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) (N40.1) Polycystic kidney disease (753.12) (Q61.3) Uncontrolled hypertension (401.9) (I10) Bilateral leg weakness (729.89) (R29.898) Frequent falls (V15.88) (R29.6) Lymphangitis (457.2) (I89.1) Cat bite (879.8) (W55.01XA) Nonspecific lymphadenitis (289.3) (I88.9) Depression (311) (F32.9) Allergies and Adverse Reactions No Known Drug Allergies (Allergy) Medications Metoprolol Succinate ER 50 MG Oral Table t Extended Release 24 Hour; TAKE 2 TABLET DAILY ( DOSE INCREASED 01/01/2019 TO 100 MG DAILY ) Dannie Tran III Start: 18-Dec-2016 Quantity: 90 Refills: 0 Doxazosin Mesylate 2 MG Oral Tablet; TAKE 2 TABLET BY MOUTH DAILY AT BEDTIME. Dannie Tran III Start: 14-Mar-2017 Quantity: 90 Refills: 3 fentaNYL 50 MCG/HR Transdermal Patch 72 Hour; change p atch every 3 days Dannie Tran III Start: 20-Nov-2018 Quantity: 10 Refills: 0 busPIRone HCl - 10 MG Oral Tablet; Take 1 tablet twice daily CARA Montes Start: 20-Nov-2018 Quantity: 60 Refills: 1 Bumetanide 1 MG Oral Tablet; TAKE 1 or 2 TABLETS DAILY FOR EDEMA Dannie Tran III Start: 29-Dec-2018 Quantity: 60 Refills: 5 Gabapentin 600 MG Oral Tablet; TAKE 1 TA BLET 3 times daily in addition to 300 mgs for a total of 900 mgs TID KIMBERLEY Rowell Quantity: 270 Refills: 1 Aspirin 325 MG Oral Tablet Delayed Release; TAKE 1 TAB LET Every other day KIMBERLEY Rowell Start: 13-Jun-2017 Refills: 0 LORazepam 0.5 MG Oral Tablet; take 3 tablets by mouth at bedtime Dannie Tran III Start: 07-Jul-2015 Quantity: 90 Refills: 1 Vitamin C 1000 MG Oral Tablet; Take 1 tablet twice daily Refills: 0 Simvastatin 20 MG Oral Tablet; TAKE 1 TABLET AT BEDTIM E Dannie Tran III Start: 07-May-2018 Quantity: 90 Refills: 3 methIMAzole 5 MG Oral Tablet; Take 1 tablet daily Dannie Gruber II Start: 24-Jul-2018 Quantity: 90 Refills: 3 Nortriptyline HCl - 25 MG Oral Capsule; TAKE 1 CAPSULE AT BEDTIME Dannie Tran III Start: 31-Oct-2018 Quantity: 90 Refills: 1 Colace CAPS; TAKE 2 CAPSULES DAILY Refills: 0 Calcium 600 + D TABS; Take 1 tablet twice daily Refills: 0 Magnesium 250 MG Oral Tablet; Take 1 tablet daily Refills: 0 Gabapentin 300 MG Oral Capsule; TAKE 1 C APSULE THREE TIMES A DAY IN ADDITION TO 600 MG FOR A TOTAL OF 900 MG THREE TIMES A DAY CARA Sheriff Start: 25-Nov-2018 Quantity: 270 Refills: 1 Dutasteride-Tamsulosin HCl - 0.5-0.4 MG Oral Capsule; TAKE 1 CAPSULE Daily Dannie Tran III Start: 29-May-2017 Quantity: 90 Refills: 3 Shingrix 50 MCG Intramuscular Suspension Reconstituted; INJECT 0.5 ML Intramuscular Dannie Tran III Start: 28-Jan-2018 Quantity: 0.5 Refills: 0 Multiple Vitamin TABS; TAKE 1 TABLET DAILY. Refills: 0 Meloxicam 15 MG Oral Tablet; Take 1 tablet daily CARA Sheriff Start: 25-Nov-2018 Quantity: 90 Refills: 1 Lansoprazole 30 MG Oral Capsule Delayed Release; TAKE 1 CAPSULE Daily Dannie Tran III Start: 08-Jan-2014 Quantity: 90 Refills: 3 Lisinopril 40 MG Oral Tablet; Take 1 tablet daily Viraj Ortiz Start: 24-Dec-2018 Quantity: 90 Refills: 3 Procedures Complete Echo Doppler (Echocardiogram) Date: 29-Dec-2018 Urine Protein/Creatinine Ratio Date: 29-Dec-2018 Basic Metabolic Panel Date: 29-Dec-2018 History of Optic Nerve Decompression Left Eye Status: Completed History of Craniotomy (Therapeutic) Stat us: Completed History of Diagnostic Esophagogastroduodenoscopy Status: Completed History of Complete Colonoscopy Status: Completed History of salivary gland surgery Status : Completed Immunizations Tetanus On: 19-Dec-1990 Zostavax [id number] UNT/0.65ML Subcutaneous Solution Reconstitute d On: 2008 [employer] Pneumococcal polysaccharide vaccine, 23 valent On: 2008 Influenza On: Jun-2010 Influenza On: Jun-2011 Influenza On: 16-Jun-2012 Influenza On: 21-Jul-2013 12:07 Lot #: [id number], [employer] Influenza On: Jun-2014 Influenza On: 13-Jun-2015 Prevnar 13 Intramuscular Suspension On: 23-Sep-2015 9:48 Lot #: [id number], [employer] Fluzone High-Dose Intramuscular Suspension On: 17-Jul-2016 14 :18 Lot #: [id number], [employer] Fluzone High-Dose Intramuscular Suspension On: 30-May-2017 1 7:26 Lot #: [id number], [employer] Zostavax 37368 UNT/0.65ML Subcutaneous Solution Reconstitute d On: 28-Jan-2018 Fluzone High-Dose Intramuscular Suspension On: 27-Jun-2018 1 3:40 Lot #: [id number], [employer] Shingrix 50 MCG Intramuscular Suspension Reconstituted On: 20-Aug-2018 Family History Father Family history of Congestive Heart Failure Status: Active Family history of Tobacco Use Status: Active Mother Family history of Diverticulosis Of Intestine Status: Active Sister Family history of Ovarian Cancer (V16.41) Status: Active Family history of Colon Cancer (V16.0) Status: Active Grandfather Family history of Cancer Status: Active Grandmother Family history of Cancer Status: Active Grandfather Family history of Cancer Status: Active Grandmother Family history of Cancer Status: Active aunt Family history of Cancer Status: Active uncle Family history of Cancer Status: Active Social History - Smoking Status Former smoker Plan of Treatment Planned Encounters Appointment; Ivan Teixeira M.D. Start: 29-Dec-2019 13:10 R equest Planned Observations Planned Goals not documented Results CBC With DIFF Laboratory: [facility] Laboratory [address] [facility] [address] tel: 29-Dec-2018 15:28 WBC 6.75 K/uL Range: 4.8-10.8 K/u L RBC 4.00 {M/uL} (below low Range: 4.7-6 .1 M/uL threshold) HEMOGLOBIN 12.7 g/dL (below Range: 14.0 -18.0 g/dL low threshold) HEMATOCRIT 37.2 % (below low Range: 42- 52 % threshold) MCV 93.0 fL Range: 80-100 fL MCH 31.8 pg Range: 25-34 pg MEAN CORPUSCULAR HGB CONC 34.1 Range: 3 2-36 g/dL g/dL RED CELL DISTRIBUTION WIDTH SD Range: 3 6.4-46.3 fL 44.3 fL RED CELL DISTRIBUTION WIDTH CV Range: 1 1.5-14.5 % 13.0 % PLATELET COUNT 183 K/uL Range: 130-400 K/uL MEAN PLATELET VOLUME 10.5 fL Range: 7.4 -10.4 fL (above high threshold) NEUT % 48.9 % Range: % LYMPH % 33.8 % Range: % MONO % 9.9 % Range: % EOS % 6.7 % Range: % BASO % 0.6 % Range: % IG% 0.1 % Range: % Comments: IG paramet er reflects the combination of Metas, Myelos andPromyelocytes. Neutrophils (Auto) 3.30 K/uL Range: 1. 4-6.5 K/uL LYMPH ABS # 2.28 K/uL Range: 1.2-3.4 K/ uL MONO ABS # 0.67 K/uL (above Range: 0.11 -0.59 K/uL high threshold) EOS ABS # 0.45 K/uL Range: 0-0.5 K/uL BASO ABS # 0.04 K/uL Range: 0-0.2 K/uL IG# 0.01 K/uL Range: 0.00-0.02 K/ uL Total PSA Laboratory: [facility] Laboratory [address] [address] tel: 29-Dec-2018 15:35 PROSTATE SPECIFIC ANTIGEN < Range: 0-4 ng/ml 0.010 ng/ml Comments: Postprosta tectomy reference range <0.2 ng/mlThe testing method is a chemiluminescent immunoassaymanufactured by Siem[employer] and performed on the Smartesting.Values obtained with different assay methods or kits may bedifferent and cannot be used interchangeably.Test results cannot be interpreted as absolute evidence forthe presence or absence of malignant disease. Phosphorus Laboratory: [facility] Laboratory [address] [facility] [address] tel: 29-Dec-2018 15:30 PHOSPHORUS 3.8 mg/dl Range: 2.5-4.9 mg/ dl Comp Metabolic Panel Laboratory: [facility] Laboratory [address] [facility] [address] tel: 29-Dec-2018 15:28 SODIUM 142 mmol/L Range: 136-145 mmol /L POTASSIUM 4.5 mmol/L Range: 3.5-5.1 mmo l/L CHLORIDE 107 mmol/L Range: 98-107 mmol/ L CARBON DIOXIDE 33 mmol/L Range: 21-32 m mol/L (above high threshold) ANION GAP 2.0 (below low Range: 3-11 threshold) BLOOD UREA NITROGEN 21 mg/dl Range: 7-1 8 mg/dl (above high threshold) CREATININE 1.10 mg/dl Range: 0.6-1.4 mg /dl Estimated GFR ( Comments: Units: ml/min per 1.73 Fijian) 74.7 meters squaredThe es timated GFR (CKD-EPI equation) h as not been validatedfor inpatie nt settings and may not be an ac curate reflectionof renal f unction in critically ill patie nts or those withrapidly changing renal function (e.g. CELI). Estimated GFR (Non- Comments: Uni ts: ml/min per 1.73 Fijian) 64.4 meters squaredThe es timated GFR (CKD-EPI equation) h as not been validatedfor inpatie nt settings and may not be an ac curate reflectionof renal f unction in critically ill patie nts or those withrapidly changing renal function (e.g. CELI). BUN/CREATININE RATIO 18.9 Range: 10-20 GLUCOSE 93 mg/dl Range: 70-99 mg/dl CALCIUM 9.2 mg/dl Range: 8.5-10.1 mg/ dl Bilirubin, Total 0.3 mg/dl Range: 0.2-1 mg/dl AST/SGOT 29 U/L Range: 15-37 U/L ALT/SGPT 23 U/L Range: 12-78 U/L TOTAL PROTEIN 6.4 {gm/dl} Range: 6.4-8. 2 gm/dl ALBUMIN 3.2 {gm/dl} (below low Range: 3 .4-5.0 gm/dl threshold) GLOBULIN 3.2 {gm/dl} Range: 2.5-4.0 gm/ dl ALB/GLOB RATIO 1.0 Range: 0.9-2 ALKALINE PHOSPHATASE 102 U/L Range: 45- 117 U/L Ultra TSH Laboratory: [facility] [address] [facility] [address] tel: 29-Dec-2018 15:28 TSH 0.491 {uIu/ml} Range: 0.300-4.500 uIu/ml Comments: The refere nce range for TSH is 0.3-4.5 uIU/ml.Some have suggested that TSH levels >2.5 uIU/ml should beconsidered abnormal, particularly in potentially symptomaticyounger individuals.TSH levels in he althy elderly (>75 y ears of age) are oftenat or even above the reference range.Normal first trimester TSH <2.0 uIU/ml.Normal second and third trimester TSH <3.0 uIU/ml.TSH 0.5-2.0 uIU/ml is oft en considered the op timaltherapeutic target for replacement treatment ofhypothyroidism. Vitamin D, 25-Hydroxy Laboratory: [facility] Laboratory [address] [address] tel: 29-Dec-2018 15:30 VITAMIN D, 25 HYDROXY 46.2 Range: 30-10 0 ng/ml ng/ml Comments: Deficient: <20 ng/mLInsufficient: 20-30 ng/mLSufficient: 30-100 ng/mL PTH, Intact Laboratory: [facility] Laboratory [address] [address] tel: 29-Dec-2018 15:30 PARATHYROID HORMONE INTACT Range: 18. 4-80.1 pg/ml 38.3 pg/ml Urine rflx Laboratory: [facility] Laboratory Microscopic [address] [address] tel: 30-Dec-2018 14:01 Urine Color Yellow Urine Appearance Clear Range: Clear Urine Specific Elbert 1.020 Range: 1.0 00-1.030 Urine Ph 7.0 Range: 4.5-7.5 Urine Protein(Dipstick) Range: Negative Negative Urine Glucose(Dipstick) Range: Negative Negative Urine Ketones Negative Range: Negative Urine Bilirubin Negative Range: Negativ e URINE BLOOD HGB Negative Range: Negativ e Urobilinogen Negative Range: Negative Nitrite Urine Negative Range: Negative Urine Leukocyte Esterase Range: Negativ e Negative Urine Laboratory: [facility] Laboratory Protein/Creatinine [address] [address] tel: 30-Dec-2018 14:02 CREATININE RANDOM URINE 141.0 Range: mg /dl mg/dl Comments: The refere nce interval and other method performancespecifications have not been established for this bodyfluid. The test result must be integrated into the clinicalcontext for interpretation. URINE TOTAL PROTEIN 13.7 mg/dl Range: 0 -11.9 mg/dl (above high threshold) URINE PROTIEN/CREAT RATIO 0.1 Range: 0- 0.2 X-Ray Chest 1 View Laboratory: [facility] Diagnostic Portable (Pending) Imaging [address] [facility] 01-Jan-2019 12:48 X-Ray Chest 1 VW Portable (CXR1P) [place], [place] [phone] XRay Report Patient: PUJA GROSSMAN Admit Date: 01/01/19 MR#: [id number] Address1: [address] [place] [address] Acct ID:[id number] Address2: Date: 1940 [facility] Zip: [place] [address] Age: 78 Location: ED Sex: M Room/Bed: Att Phy: Diagnosis: PANIC ATTACK Tori Phy: Harish Tran III, MD Service Date: 01/01/19 Fam Phy: Elias Ortiz MD Interpreting Phy: Iraj Mandujano MD Admit Phy: Ordering Phy: Jef Del Rio DO cc: SINGLE VIEW CHEST CLINICAL HISTORY: Atypical chest pain. FINDINGS: An AP, portable, upright chest radiograph is obtained. No prior studies are available forcomparison at the time of dictation. The examination is degraded by portable technique and patient rotation. The cardiomediastinal silhouette is unremarkable, noting atherosclerotic calcification ofthe thoracic aorta. There is mild elevation of the right hemidiaphragm. The lungs and pleural spacesare otherwise clear. No pneumothorax is seen. The bony thorax is grossly intact. IMPRESSION: No acute cardiopulmonary abnormality. Electronically signed by: Iraj Mandujano M.D. 01/01/2019 12:49 PM Dictated: 01/01/19 1248 Transcribed: 01/01/19 1248 X-Ray Chest 1 View Laboratory: [facility] Diagnostic Portable (Pending) Imaging [address] [facility] 10-Jan-2019 22:07 X-Ray Chest 1 VW Portable (CXR1P) [facility] [address], [place] [phone] XRay Report Patient: PUJA GROSSMAN Admit Date: 01/10/19 MR#: [id number] Address1: [address] [place] [address] Acct ID:[id number] Address2: Date: 1940 [facility] [address] Age: 78 Location: ED Sex: M Room/Bed: Att Phy: Diagnosis: CHEST PAIN Tori Phy: Harish Tran III, MD Service Date: 01/10/19 [facility] Phy: Interpreting Phy: Pal Huerta MD Admit Phy: Ordering Phy: Wilda Nagy PA-C cc: XR chest 1V portable CLINICAL HISTORY: Chest Pain dyspnea COMPARISON STUDY: 12/30/2018 FINDINGS: The bones soft tissues and hemidiaphragms are normal. The cardiomediastinal silhouette isnormal. The lungs are clear. The pulmonary vasculature is normal. IMPRESSION: Negative chest. The above report was generated using voice recognition software. It may contain grammatical, syntax or spelling errors. Electronically signed by: Pal Huerta M.D. 01/10/2019 10:07 PM Dictated: 01/10/192206 Transcribed: 01/10/192206 CT Head w/o Contrast Laboratory: [facility] Diagnostic (Pending) Imaging [facility] 10-Jan-2019 22:14 CT HEAD WITHOUT CONTRAST [place], [place] [phone] CT Scan Report Patient: PUJA GROSSMAN Admit Date: 01/10/19 MR#: [id number] Address1: [address] [place] [address] Acct ID:[id number] Address2: Date: 1940 [facility] Zip: [place] [address] Age: 78 Location: ED Sex: M Room/Bed: Att Phy: Diagnosis: CHEST PAIN Tori Phy: Harish Tran III, MD Service Date: 01/10/19 [facility] Phy: Interpreting Phy: Pal Hureta MD Admit Phy: Ordering Phy: Wilda Nagy PA-C cc: CT head/brain wo con CT DOSE: 537.48 mGy.cm HISTORY: Headache MCRAE, HTN TECHNIQUE: Multiaxial CT images of the head were performed without the use of intravenous contrast. A dose lowering technique was utilized adhering to the principles of ALARA. Comparison: 10/10/2018 Findings: The paranasal sinuses and mastoid air cells are clear. The calvarium and skull base are intact. The ventricles and sulci are within normal limits. There is no mass, hematoma, midline shift, or acute infarct. Impression: No acute intracranial abnormality. The above report was generated using voice recognition software. It may contain grammatical, syntax or spelling errors. Electronically signed by: Pal Huerta M.D. 01/10/2019 10:15 PM Dictated: 01/10/192213 Transcribed: 01/10/192213 Vital Signs 09-Jan-2019 11:02 Systolic 168 mm[Hg] Comments: Location: RUE; Position: Sitting Diastolic 80 mm[Hg] Comments: Location: RUE; Position: Sitting 09-Jan-2019 10:36 Systolic 181 mm[Hg] Comments: Location: LUE; Position: Sitting Diastolic 77 mm[Hg] Comments: Location: LUE; Position: Sitting Heart Rate 61 /min O2 Saturation 95 % 09-Jan-2019 10:34 Weight 199.8 lb BMI Calculated 30.38 kg/m2 BSA Calculated 2.04 m2 29-Dec-2018 14:26 Systolic 152 mm[Hg] Comments: Location: RUE; Position: Sitting Diastolic 80 mm[Hg] Comments: Location: RUE; Position: Sitting Heart Rate 69 /min Weight 204 lb BMI Calculated 31.02 kg/m2 BSA Calculated 2.06 m2 Height 68 in Temperature 98.6 f Comments: Method: Te mporal Respiration 14 /min Encounters Appointment; Carolann Montes PA-C 09-Jan-2019 10:30 Encounter Diagnosis: Problem not documented Appointment; Harish Tran III, M.D. 29-Dec-2018 14:20 Encounter Diagnosis: Problem not documented Appointment; Ivan Teixeira M.D. 23-Dec-2018 11:00 Encounter Diagnosis: Problem not documented Appointment; Harish Tran III, M.D. 20-Nov-2018 8:30 Encounter Diagnosis: Problem not documented Appointment; Harish Tran III, M.D. 08-Oct-2018 15:40 Encounter Diagnosis: Problem not documented Appointment; Wellness, Nurse 06-Oct-2018 14:40 Encounter Diagnosis: Problem not documented Appointment; Elias Ortiz M.D. 31-Jul-2018 11:15 Encounter Diagnosis: Problem not documented Appointment; Harish Tran III, M.D. 27-Jun-2018 12:50 Encounter Diagnosis: Problem not documented Appointment; Brielle Almanza PA-C 04-Apr-2018 10:30 Encounter Diagnosis: Problem not documented Appointment; Oly Cardona M.D. 25-Mar-2018 10:30 Encounter Diagnosis: Problem not documented Appointment; Nelly Clifford PA-C 26-Feb-2018 14:00 Encounter Diagnosis: Problem not documented Appointment; Brielle Almanza PA-C 30-Jan-2018 10:00 Encounter Diagnosis: Problem not documented Appointment; Elias Ortiz M.D. 27-Jan-2018 11:00 Encounter Diagnosis: Problem not documented Appointment; Oly Cardona M.D. 16-Jan-2018 10:30 Encounter Diagnosis: Problem not documented Appointment; Harish Tran III, M.D. 15-Nov-2017 11:10 Encounter Diagnosis: Problem not documented Appointment; Nelly Clifford PA-C 28-Oct-2017 16:30 Encounter Diagnosis: Problem not documented Appointment; Harish Tran III, M.D. 02-Sep-2017 14:40 Encounter Diagnosis: Problem not documented Appointment; Nurse Holley 02-Sep-2017 14:00 Encounter Diagnosis: Problem not documented Appointment; Elias Ortiz M.D. 29-Jul-2017 12:30 Encounter Diagnosis: Problem not documented Appointment; Elias Ortiz M.D. 22-Jul-2017 15:15 Encounter Diagnosis: Problem not documented Appointment; Lili Rowell CRNP 13-Jun-2017 15:30 Encounter Diagnosis: Problem not documented Appointment; Harish Tran III, M.D. 30-May-2017 16:30 Encounter Diagnosis: Problem not documented Appointment; Dimas Fuentes M.D. 29-May-2017 10:00 Encounter Diagnosis: Problem not documented Appointment; Harish Tran III, M.D. 17-May-2017 10:50 Encounter Diagnosis: Problem not documented Appointment; Delfina Torres PA-C 16-May-2017 16:45 Encounter Diagnosis: Problem not documented Appointment; Polly Sheriff PA-C 02-Apr-2017 16:00 Encounter Diagnosis: Problem not documented Appointment; Pal Gardner M.D. 01-Apr-2017 8:50 Encounter Diagnosis: Problem not documented Appointment; Rakan Lacey PA-C 27-Mar-2017 16:30 Encounter Diagnosis: Problem not documented Appointment; Rakan Lacey PA-C 14-Mar-2017 11:30 Encounter Diagnosis: Problem not documented Appointment; Elias Ortiz M.D. 14-Jan-2017 13:15 Encounter Diagnosis: Problem not documented Appointment; Ivan Teixeira M.D. 29-Dec-2019 13:10 Encounter Diagnosis: Problem not documented
== END 2019-01-12 10:06 | disposition home or self-care (01) | DRG 880 ==
LOC: ED 21:31 → 2E 01-11 02:38 → SUATTDRO 01-11 02:38 → 2E 01-11 03:25

== ENCOUNTER 2019-05-31 15:08 | Inpatient (IN) ==
[2019-05-31] MEDS ORDERED: MoRPHine SULFATE 4 MG/ML 1 ML CARP\\VIAL IV STA (15:25)
[2019-05-31] MEDS ORDERED: LORazepam 0.5 MG/1 ML VIAL IV STA (15:25)
[2019-05-31] MEDS ORDERED: ONDANSETRON INJ 2 MG/ML 2 ML VIAL IV STA (15:25)
[2019-05-31] MEDS ORDERED: SODIUM CHLORIDE 0.9% 500 ML IV SCH (15:30)
--- NOTE | 2019-05-31 15:54 | XRay Report ---
XR chest 1V portable CLINICAL HISTORY: r chest pain, ruq pain COMPARISON STUDY: Chest radiograph April 09, 2019. FINDINGS: Lung volumes are normal. Lungs are clear. There is no pneumothorax or pleural effusion. Car diac size is normal. Mediastinal contours are normal. There is no evidence for pulmonary edema. IMPRESSION: No acute cardiopulmonary findings. Electronically signed by: Leo Mcfarland M.D. 05/31/2019 3:52 PM
[2019-05-31 16:06] LABS: Basophils # (auto) 0.04 K/uL (0-0.2); Basophils % (auto) 0.4 %; Eosinophils # (auto) 0.21 K/uL (0-0.5); Eosinophils % (auto) 2.2 %; Hematocrit (blood only) 39.7 % (42-52); Hemoglobin 13.8 g/dL (14.0-18.0); Immature Granulocytes # (auto) 0.02 K/uL (0.00-0.02); Immature Granulocytes % (auto) 0.2 %; Lymphocytes # (auto) 3.01 K/uL (1.2-3.4); Mean Corpuscular Hemoglobin 30.7 pg (25-34); Mean Corpuscular Hgb Conc 34.8 g/dL (32-36); Mean Corpuscular Volume 88.4 fL (80-100); Monocytes # (auto) 0.62 K/uL (0.11-0.59); Monocytes % (auto) 6.4 %; Neutrophils % (auto) 59.8 %; Platelet Count 178 K/uL (130-400); RDW Coefficient of Variation 13.6 % (11.5-14.5); Red Blood Count 4.49 M/uL (4.7-6.1)
[2019-05-31 16:23] LABS: Alanine Aminotransferase 22 U/L (12-78); Aspartate Aminotransferase 22 U/L (15-37); BUN Creatinine Ratio 11.7 (10-20); Blood Urea Nitrogen 22 mg/dl (7-18); Calcium 9.6 mg/dl (8.5-10.1); Carbon Dioxide 29 mmol/L (21-32); Chloride 102 mmol/L (98-107); Creatinine Clr Calc Pharmacy 31.3 ml/min; Est GFR (African American) 38.3; Est GFR (Non-African American) 33.1; Glucose 89 mg/dl (70-99); Lipase 328 U/L (73-393); Magnesium 2.4 mg/dl (1.8-2.4); Potassium 4.6 mmol/L (3.5-5.1); Sodium 141 mmol/L (136-145)
[2019-05-31 16:29] LABS: Albumin Globulin Ratio 1.3 (0.9-2); Alkaline Phosphatase 99 U/L (45-117); Bilirubin,Total 0.6 mg/dl (0.2-1); Globulin 3.2 gm/dl (2.5-4.0); Total Protein 7.2 gm/dl (6.4-8.2); Troponin I < 0.015 ng/ml (0-0.045)
[2019-05-31] MEDS ORDERED: ACETAMINOPHEN 1,000 MG/100 ML VIAL IV STA (17:17)
[2019-05-31 17:54] LABS: Appearance Urine Clear (Clear); Bilirubin Urine Negative (Negative); Blood Urine Negative (Negative); Color Urine Yellow; Glucose Urine UA Negative (Negative); Ketones Urine Trace (Negative); Leukocyte Esterase Urine Negative (Negative); Nitrite Urine Negative (Negative); Protein Urine Negative (Negative); Specific Gravity Urine 1.011 (1.000-1.030); Urobilinogen Urine Negative (Negative); pH Urine >= 9.0 (4.5-7.5)
--- NOTE | 2019-05-31 18:13 | CT Scan Report ---
CT OF THE ABDOMEN AND PELVIS WITHOUT CONTRAST CLINICAL HISTORY: Right-sided pain. Elevated creatinine. Possible obstruction. COMPARISON STUDY: CT of the abdomen and pelvis 10/30/2018. Right upper quadrant ultrasound April 09, 2 019. TECHNIQUE: Axial images of the abdomen and pelvis were obtained without IV contrast. Images were revi ewed in the axial, sagittal, and coronal planes. Automated exposure control was utilized for the maribel dy. A dose lowering technique was utilized adhering to the principles of ALARA. FINDINGS: Multiple hepatic cysts are noted. Innumerable right renal lesions are noted. These are subo ptimally assessed on this unenhanced exam but appear unchanged and favor cysts. Several these have ca lcification within the clay. There are a few suspected left renal cyst. There is no hydronephrosis o r hydroureter. No ureteral calculi are present. There is no evidence for a bowel obstruction. The valente endix is normal. No pneumatosis, free air or portal venous gas is present. There is no lymphadenopath y. There are no suspicious osseous lesions. The appearance of the abdomen and pelvis is unchanged on this unenhanced study. IMPRESSION: 1. No acute process within the abdomen or pelvis on unenhanced exam. 2. Innumerable right renal cysts with numerous cysts within the left kidney and liver. The findings a re unchanged from earlier exams and suggest polycystic kidney disease. 3. No hydronephrosis. No ureteral calculi. Electronically signed by: Leo Mcfarland M.D. 05/31/2019 6:12 PM
[2019-05-31] MEDS ORDERED: SODIUM CHLORIDE 0.9% 1000ML 1,000 ML IV ONE (18:53)
--- NOTE | 2019-05-31 19:40 | Emergency Department Note ---
Entered by Amada Humphreys acting as a scribe for Iraj Casey MD History of Present Illness General Chief complaint: Leg Injury/Pain Stated complaint: LEG PAIN, ANXIETY Time Seen by Provider: 05/31/19 15:17 Source: patient History of Present Illness Onset (ago): day(s) (yesterday) Location: abdomen and right (thigh pain) Severity: severe Pain Consistency: + intermittent Current Pain Intensity: 9 Quality: + other (right thigh pain) Associated symptoms: + loss of appetite and + other (Positive diarrhea, weight loss, asking his to kill him. Negative vomiting. ) The patient is a 78 year old male who presents to the ED complaining of severe right leg pain beginning yesterday. He reports he has intermittent right thigh pain which he has had since a child however, he notes it has been severe since yesterday. He also has severe abdominal pain which he rates as a 9/10 in severity. He notes he has been told that he has a "bad gallbladder" and is supposed to see Dr. Leal, General Surgery. He states that over the past month and a half, he has lost weight as he is not eating. Pt has diarrhea but denies any vomiting. As per nursing staff, the patient has been to the ED 4 times for leg pain in the past 3 weeks. He has a fentanyl patch on his LUQ. He is accompanied by his who reports the patient has been repeatedly asking her to kill him as he cannot do it himself. Records show that he had a HIDA scan on 04/20/19 that showed a very poor ejection fraction of 12% suggesting gallbladder dysfunction. Home Medications Home Medications Medication Instructions Recorded Confirmed Type aspirin 81 mg tablet,delayed 81 mg PO QAM #30 tab 02/23/19 05/31/19 Rx release bumetanide 1 mg tablet 1 mg PO QAM #60 tab 02/23/19 05/31/19 Rx calcium carbonate 600 mg (1,500 1 tab PO BID #30 tab 02/23/19 05/31/19 Rx mg)-vitamin D3 200 unit tablet docusate sodium 100 mg tablet 200 mg PO QAM #60 tab 02/23/19 05/31/19 Rx dutasteride 0.5 mg-tamsulosin ER 1 cap PO HS #90 cap 02/23/19 05/31/19 Rx 0.4 mg capsule ext.release 24hr mphas lisinopril 40 mg tablet 40 mg PO QAM #90 tab 02/23/19 05/31/19 Rx magnesium 250 mg tablet 250 mg PO QAM #30 tab 02/23/19 05/31/19 Rx simvastatin 20 mg tablet 20 mg PO HS #90 tab 02/23/19 05/31/19 Rx sucralfate 1 g PO Q6H 04/09/19 05/31/19 History trazodone 50 mg PO HS 04/14/19 05/31/19 History buspirone 30 mg PO BID 04/29/19 05/31/19 History fentanyl 1 patch TRANSDERMAL Q72H 04/29/19 05/31/19 History sertraline 50 mg PO QAM 04/29/19 05/31/19 History meloxicam 15 mg tablet 15 mg PO QAM #90 tab 05/07/19 05/31/19 Rx metoprolol succinate ER 50 mg 100 mg PO HS #180 tab 05/07/19 05/31/19 Rx tablet,extended release 24 hr hyoscyamine sulfate 0.125 mg tablet 0.125 mg PO QID PRN #120 tab 05/11/19 05/31/19 Rx pantoprazole 40 mg PO BID 05/18/19 05/31/19 History doxazosin [Cardura] 8 mg PO HS 05/26/19 05/31/19 History lansoprazole 30 mg PO DAILY 05/26/19 05/31/19 History multivitamin [Multiple Vitamins] 1 tab PO DAILY 05/27/19 05/31/19 History Allergies Allergy/AdvReac Type Severity Reaction Status Date / Time No Known Allergies Allergy Verified 05/31/19 15:47 Past Med/Surg History Medical History Opioid dependence (Chronic) CKD (chronic kidney disease) (Chronic) HLD (hyperlipidemia) (Chronic) Anxiety (Chronic) Chronic lower back pain (Chronic) Intractable low back pain (Chronic) Lumbago (Chronic) Panic attack (Inactive) BPH (benign prostatic hyperplasia) Blind LEFT EYE Deep vein thrombosis RLE - 3 YEARS AGO - CAUSE? - TREATED WITH BLOOD THINNERS. GERD (gastroesophageal reflux disease) Hearing deficit BL MCRAE History of melanoma Hyperlipidemia Hypertension Hyperthyroidism IBS (irritable bowel syndrome) Lumbar herniated disc MULTIPLE Multiple renal cysts REPORTS ONLY HAS 1 FUNCTIONING KIDNEY - FOLLOWS W/ DR. 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 History of esophagogastroduodenoscopy (EGD) History of melanoma excision CHEST - W/ SKIN GRAFTING. (LEFT GROIN DONOR SITE) History of parotidectomy Status post trigger finger release Family History Sister Family hx of colon cancer Father Tobacco use Coronary heart disease Mother Diverticulosis of intestine Sister Ovarian cancer Colon cancer Grandfather Cancer Aunt Cancer Uncle Cancer Grandmother (Maternal) Cancer Other No significant family history Social History Preferred Language: Nepali Communication Ability: Effective Strike On Machine Operator Required: Yes Beliefs That Will Affect Care: None Current Living Situation: Spouse Other Information That Helps Us Care for You: No Feels Safe at Home: Yes Safety Concerns: Feels Safe At This Time Smoking Status: Former smoker Tobacco Type: cigarettes ; Second Hand Exposure: No ; Hx Alcohol Use: No Hx Substance Use: No Review of Systems See HPI for pertinent positives & negatives. and A total of 10 systems reviewed and were otherwise negative Physical Exam Vital Signs Vital Signs - 24 hr 05/31/19 15:18 05/31/19 15:50 05/31/19 16:05 Temperature 36.7 C Temperature Source Oral Sepsis Recent Fever Within 48 Hours No Sepsis New/Unexplained Change in Mental Status No Sepsis Action Taken by Nursing No Action Required Pulse Rate 61 69 Pulse Rate [Finger] 67 Pulse Rate from SpO2 Sensor Respiratory Rate 20 21 Respiratory Effort / Characteristics Non-Labored Respiratory Depth Normal Blood Pressure 137/86 143/80 H Blood Pressure [Left Arm] 143/80 H Blood Pressure Mean 103 101 Blood Pressure Mean [Left Arm] 101 Pulse Oximetry 100 96 100 Oxygen Delivery Method Room Air Room Air Room Air 05/31/19 16:32 05/31/19 17:00 05/31/19 18:25 Temperature Temperature Source Sepsis Recent Fever Within 48 Hours Sepsis New/Unexplained Change in Mental Status Sepsis Action Taken by Nursing Pulse Rate 60 57 L 57 L Pulse Rate [Finger] Pulse Rate from SpO2 Sensor Respiratory Rate 21 17 12 Respiratory Effort / Characteristics Respiratory Depth Blood Pressure 177/98 H 192/82 H 137/50 L Blood Pressure [Left Arm] Blood Pressure Mean 124 118 79 Blood Pressure Mean [Left Arm] Pulse Oximetry 100 100 97 Oxygen Delivery Method Room Air Room Air Room Air 05/31/19 19:00 05/31/19 19:30 Temperature Temperature Source Sepsis Recent Fever Within 48 Hours Sepsis New/Unexplained Change in Mental Status Sepsis Action Taken by Nursing Pulse Rate 54 L 68 Pulse Rate [Finger] Pulse Rate from SpO2 Sensor 52 L 57 L Respiratory Rate 19 17 Respiratory Effort / Characteristics Respiratory Depth Blood Pressure 125/74 134/55 L Blood Pressure [Left Arm] Blood Pressure Mean 91 81 Blood Pressure Mean [Left Arm] Pulse Oximetry 99 97 Oxygen Delivery Method Room Air Room Air GENERAL: Patient is in no acute distress. HEENT: No acute trauma, normocephalic atraumatic, mucous membranes dry, no nasal congestion, no scleral icterus. NECK: No stridor, no adenopathy, no meningismus, trachea is midline. LUNGS: Clear to auscultation bilaterally, no wheeze, no rhonchi, breath sounds equal. HEART: Without murmurs gallops or rubs, regular rate and rhythm. ABDOMEN: Soft, mildly tender in the RUQ, bowel sounds positive, no hernias, no peritonitis. EXTREMITIES: No cyanosis or edema, full range of motion of all the joints without pain or difficulty, no signs for acute trauma. NEUROLOGIC: Oriented x 3, no acute motor or sensory deficits, no focal weakness. PSYCH: Anxious. His states the patient has asked her to kill him several times. The patient denies SI SKIN: No rash, no jaundice, no diaphoresis. Course 1520: Past medical records reviewed. The patient was evaluated in room B8. A complete history and physical exam was performed. 1700: I talked to the psych machine adjuster leader case trim. She does not believe he meets any criteria for psych admission but she will talk to his separately. 172: I checked on the patient at this time and informed him of the abdominal scan. The machine adjuster leader case trim spoke to the patient and his separately. His will not do any petitioning paper work. 1913: Discussed the patient's case with Dr. Goff, [facility] Hospitalist. The patient will be evaluated for further management. Administered Medications Discontinued Medications Lorazepam (Ativan) 0.5 mg in 1 mls @ 1 mls/min IV NOW STA Stop: 05/31/19 15:26 Last Admin: 05/31/19 16:03 Dose: 1 mls/min Documented by: [id number] Sodium Chloride (Nss) 500 mls @ 999 mls/hr IV .Q31M TOD Stop: 05/31/19 16:00 Last Infusion: 05/31/19 16:56 Dose: 0 mls/hr Documented by: [id number] Admin: 05/31/19 16:04 Dose: 999 mls/hr Documented by: [id number] Acetaminophen (Ofirmev) 1,000 mg in 100 mls @ 400 mls/hr IV NOW STA Stop: 05/31/19 17:31 Last Infusion: 05/31/19 17:40 Dose: 0 mls/hr Documented by: [id number] Admin: 05/31/19 17:24 Dose: 400 mls/hr Documented by: [id number] Sodium Chloride (Nss 1000ml) 1,000 mls @ 999 mls/hr IV .Q1H1M ONE Stop: 05/31/19 19:53 Last Infusion: 05/31/19 20:04 Dose: 0 mls/hr Documented by: [id number] Admin: 05/31/19 18:57 Dose: 999 mls/hr Documented by: [id number] Morphine Sulfate (Morphine Sulfate) 4 mg IV NOW STA Stop: 05/31/19 15:26 Last Admin: 05/31/19 16:04 Dose: 4 mg Documented by: [id number] Ondansetron HCl (Zofran) 4 mg IV NOW STA Stop: 05/31/19 15:26 Last Admin: 05/31/19 16:04 Dose: 4 mg Documented by: [id number] Medical Decision Making Differential Diagnosis Differential diagnosis: Etiologies such as dehydration, gallbladder dysfunction, liver failure, pancreatitis, CO, pneumonia, psychosis, HI, SI, as well as others were entertained. Medical Records Attestation: I reviewed the patient's medical records. He had a HIDA scan on 04/20/19 that showed a very poor ejection fraction of 12% suggesting gallbladder dysfunction. Home Medications Current Medication List: was personally reviewed by me Laboratory Data Attestation: I reviewed the patient's lab results. Result diagrams: 05/31/19 15:50 09/15/19 15:50 Lab Results 05/31/19 05/31/19 05/31/19 Range/Units 15:50 15:50 17:35 WBC 9.70 (4.8-10.8) K/uL RBC 4.49 L (4.7-6.1) M/uL Hgb 13.8 L (14.0-18.0) g/dL Hct 39.7 L (42-52) % MCV 88.4 (80-100) fL MCH 30.7 (25-34) pg MCHC 34.8 (32-36) g/dL RDW Std Deviation 44.0 (36.4-46.3) fL RDW Coeff of Mehnaz 13.6 (11.5-14.5) % Plt Count 178 (130-400) K/uL MPV 11.0 H (7.4-10.4) fL Immature Gran % (Auto) 0.2 % Neut % (Auto) 59.8 % Lymph % (Auto) 31.0 % Mclean % (Auto) 6.4 % Eos % (Auto) 2.2 % Baso % (Auto) 0.4 % Immature Gran # (Auto) 0.02 (0.00-0.02) K/uL Neut # (Auto) 5.80 (1.4-6.5) K/uL Lymph # (Auto) 3.01 (1.2-3.4) K/uL Mclean # (Auto) 0.62 H (0.11-0.59) K/uL Eos # (Auto) 0.21 (0-0.5) K/uL Baso # (Auto) 0.04 (0-0.2) K/uL Sodium 141 (136-145) mmol/L Potassium 4.6 (3.5-5.1) mmol/L Chloride 102 (98-107) mmol/L Carbon Dioxide 29 (21-32) mmol/L Anion Gap 10.0 (3-11) BUN 22 H (7-18) mg/dl Creatinine 1.91 H (0.6-1.4) mg/dl Est Cr Clr Drug Dosing 31.3 ml/min Est GFR ( Amer) 38.3 Est GFR (Non-Af Amer) 33.1 BUN/Creatinine Ratio 11.7 (10-20) Glucose 89 (70-99) mg/dl Calcium 9.6 (8.5-10.1) mg/dl Magnesium 2.4 (1.8-2.4) mg/dl Total Bilirubin 0.6 (0.2-1) mg/dl AST 22 (15-37) U/L ALT 22 (12-78) U/L Alkaline Phosphatase 99 (45-117) U/L Troponin I < 0.015 (0-0.045) ng/ml Total Protein 7.2 (6.4-8.2) gm/dl Albumin 4.0 (3.4-5.0) gm/dl Globulin 3.2 (2.5-4.0) gm/dl Albumin/Globulin Ratio 1.3 (0.9-2) Lipase 328 (73-393) U/L Urine Color Yellow Urine Appearance Clear (Clear) Urine pH >= 9.0 H (4.5-7.5) Ur Specific Lena 1.011 (1.000-1.030) Urine Protein Negative (Negative) Urine Glucose (UA) Negative (Negative) Urine Ketones Trace H (Negative) Urine Blood Negative (Negative) Urine Nitrite Negative (Negative) Urine Bilirubin Negative (Negative) Urine Urobilinogen Negative (Negative) Ur Leukocyte Esterase Negative (Negative) Imaging Data Radiologist's Impression: Radiology results as stated below per my review and the radiologist's interpretation: XR chest 1V portable CLINICAL HISTORY: r chest pain, ruq pain COMPARISON STUDY: Chest radiograph April 09, 2019. FINDINGS: Lung volumes are normal. Lungs are clear. There is no pneumothorax or pleural effusion. Cardiac size is normal. Mediastinal contours are normal. There is no evidence for pulmonary edema. IMPRESSION: No acute cardiopulmonary findings. Electronically signed by: Leo Mcfarland M.D. 05/31/2019 3:[address] OF THE ABDOMEN AND PELVIS WITHOUT CONTRAST CLINICAL HISTORY: Right-sided pain. Elevated creatinine. Possible obstruction. COMPARISON STUDY: CT of the abdomen and pelvis 10/30/2018. Right upper quadrant ultrasound April 09, 2019. TECHNIQUE: Axial images of the abdomen and pelvis were obtained without IV contrast. Images were reviewed in the axial, sagittal, and coronal planes. Automated exposure control was utilized for the study. A dose lowering technique was utilized adhering to the principles of ALARA. FINDINGS: Multiple hepatic cysts are noted. Innumerable right renal lesions are noted. These are suboptimally assessed on this unenhanced exam but appear unchanged and favor cysts. Several these have calcification within the clay. There are a few suspected left renal cyst. There is no hydronephrosis or hydroureter. No ureteral calculi are present. There is no evidence for a bowel obstruction. The appendix is normal. No pneumatosis, free air or portal venous gas is present. There is no lymphadenopathy. There are no suspicious osseous lesions. The appearance of the abdomen and pelvis is unchanged on this unenhanced study. IMPRESSION: 1. No acute process within the abdomen or pelvis on unenhanced exam. 2. Innumerable right renal cysts with numerous cysts within the left kidney and liver. The findings are unchanged from earlier exams and suggest polycystic kidney disease. 3. No hydronephrosis. No ureteral calculi. Electronically signed by: Leo Mcfarland M.D. 05/31/2019 6:12 PM ECG Data Attestation: I personally reviewed and interpreted this ECG as follows: Indication: other (weakness) Rate (beats per minute): 62 Rhythm: normal sinus Findings: + other (QTC is 420); no ST elevation and no acute ischemic change Blood Pressure Blood Pressure Findings: Elevated blood pressure Blood Pressure Disposition: further management by hospitalist [facility] Narrative There is no leukocytosis or concerning anemia. Renal panel testing does show some acute kidney injury with a creatinine of 1.9. This is above the patient's baseline creatinine value. No liver enzyme elevation. No evidence for pancreatitis. EKG shows a sinus rhythm, no acute ischemia. Cardiac enzyme testing x1 is not consistent with acute cardiac injury. Chest film does not show pneumonia or CHF. There is no free air. Abdominal and pelvis CT does not show any evidence for hydronephrosis. His polycystic kidneys were noted. No bowel obstruction. The patient received 1.5 L of IV saline for hydration. He was given IV morphine for pain, IV Tylenol for pain, IV Ativan for relaxation, he received IV Zofran for nausea. The patient presents with right upper quadrant abdominal pain. He is not eating and drinking. He does appear dehydrated based on his exam and based on his renal function testing. His creatinine value has worsened with his last few visits. He does have gallbladder dysfunction based on a recent HIDA scan. I did have the patient seen by psychiatry case management. He is not in danger of harming himself. He has made some comments that he wishes someone would kill him because of his pain and situation but he has no real wish to . He states he just says this because of how poorly he feels. The patient is in need of a hospital stay. His acute kidney injury requires close monitoring and possibly even a nephrology consult. Surgery can be con sulted for the gallbladder issue. I did speak to the patient and machine adjuster leader case trim. The on-call hospitalist was consulted. Impression & Plan Acute kidney injury, Abdominal pain, RUQ, Dehydration, Dysfunctional gallbladder Discharge Plan Visit Data *Final* Discharge Date/Time: 05/31/19 20:43 Chief Complaint: Leg Injury/Pain Stated Complaint: LEG PAIN, ANXIETY ED Provider: Iraj Casey Discharge Problem: Acute kidney injury, Abdominal pain, RUQ, Dehydration, Dysfunctional gallbladder Patient Disposition: Being Evaluated by Hospitalist Discharge Instructions Interventions: ED Discharge Assessment Last Done: 05/31/19 20:43 The scribe's documentation has been prepared under my direction and personally reviewed by me in its entirety. I confirm that the note above accurately reflects all work, treatment, procedures, and medical decision making performed by me.
[2019-05-31] MEDS ORDERED: ACETAMINOPHEN 325 MG TAB PO PRN (20:57)
--- NOTE | 2019-05-31 21:49 | History & Physical Report ---
Date of Service May 31, 2019 Assessment & Plan (1) Acute renal failure superimposed on stage 3 chronic kidney disease: Creat usually 1.3 range with GFR 50. Creat today 1.9 Suspect due to decreased po intake resulting in pre-renal azotemia He continues to take Bumex daily (which had been used for lower ext edema). Hold Bumex IV hydration. follow labs. Hold Meloxicam and lisinopril for now. DVT prophylaxis = SCDs and sub-q heparin. Present on Admission?: Yes (2) Dysfunctional gallbladder: Symptomatic EF on Hida scan 12% NPO Consult surgery - Dr. Leal. Present on Admission?: Yes (3) Chronic lower back pain: Continue Fentanyl patch Added prn pain coverage. (4) Abdominal pain, RUQ: [place] due to dysfunctional gallbladder. (5) Anxiety: Continue home meds (6) HLD (hyperlipidemia): Continue simvastatin. (7) HTN (hypertension): Continue metoprolol Add prn hydralazine as I held lisinopril and Bumex. (8) Pituitary adenoma: Follows with Dr. Reece, endocrine locally Plans to be evaluated in [place] for surgical treatment. History of Present Illness 78 y/o male presented to the ED with (as per patient) right leg pain to which his reports that he has had that his entire life. In actuality, she encouraged him to go to the ED due to RUQ pain and decreased po intake over a month time frame. When he does eat he complains of pain 9/10. A HIDA scan did show dysfunctional gallbladder with EF of 12%. He is to see Dr. Leal to consider cholecystectomy. reports that patient has lost weight. The lives separately but does help the patient. She reported that the patient asked her to "kill him" because of his symptoms. He was evaluated by psych in the ED and is not felt to be suicidal. Primary Care Provider: Harish Tran MD Allergies Allergy/AdvReac Type Severity Reaction Status Date / Time No Known Allergies Allergy Verified 05/31/19 15:47 Home Medications Home Medications Medication Instructions Recorded Confirmed Type aspirin 81 mg tablet,delayed 81 mg PO QAM #30 tab 02/23/19 05/31/19 Rx release bumetanide 1 mg tablet 1 mg PO QAM #60 tab 02/23/19 05/31/19 Rx calcium carbonate 600 mg (1,500 1 tab PO BID #30 tab 02/23/19 05/31/19 Rx mg)-vitamin D3 200 unit tablet docusate sodium 100 mg tablet 200 mg PO QAM #60 tab 02/23/19 05/31/19 Rx dutasteride 0.5 mg-tamsulosin ER 1 cap PO HS #90 cap 02/23/19 05/31/19 Rx 0.4 mg capsule ext.release 24hr mphas lisinopril 40 mg tablet 40 mg PO QAM #90 tab 02/23/19 05/31/19 Rx magnesium 250 mg tablet 250 mg PO QAM #30 tab 02/23/19 05/31/19 Rx simvastatin 20 mg tablet 20 mg PO HS #90 tab 02/23/19 05/31/19 Rx sucralfate 1 g PO Q6H 04/09/19 05/31/19 History trazodone 50 mg PO HS 04/14/19 05/31/19 History buspirone 30 mg PO BID 04/29/19 05/31/19 History fentanyl 1 patch TRANSDERMAL Q72H 04/29/19 05/31/19 History sertraline 50 mg PO QAM 04/29/19 05/31/19 History meloxicam 15 mg tablet 15 mg PO QAM #90 tab 05/07/19 05/31/19 Rx metoprolol succinate ER 50 mg 100 mg PO HS #180 tab 05/07/19 05/31/19 Rx tablet,extended release 24 hr hyoscyamine sulfate 0.125 mg tablet 0.125 mg PO QID PRN #120 tab 05/11/19 05/31/19 Rx pantoprazole 40 mg PO BID 05/18/19 05/31/19 History doxazosin [Cardura] 8 mg PO HS 05/26/19 05/31/19 History lansoprazole 30 mg PO DAILY 05/26/19 05/31/19 History multivitamin [Multiple Vitamins] 1 tab PO DAILY 05/27/19 05/31/19 History Past Med/Surg History Medical History Opioid dependence (Chronic) CKD (chronic kidney disease) (Chronic) HLD (hyperlipidemia) (Chronic) Anxiety (Chronic) Chronic lower back pain (Chronic) Intractable low back pain (Chronic) Lumbago (Chronic) Panic attack (Inactive) BPH (benign prostatic hyperplasia) Blind LEFT EYE Deep vein thrombosis RLE - 3 YEARS AGO - CAUSE? - TREATED WITH BLOOD THINNERS. GERD (gastroesophageal reflux disease) Hearing deficit BL MCRAE History of melanoma Hyperlipidemia Hypertension Hyperthyroidism IBS (irritable bowel syndrome) Lumbar herniated disc MULTIPLE Multiple renal cysts REPORTS ONLY HAS 1 FUNCTIONING KIDNEY - FOLLOWS W/ DR. 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 History of esophagogastroduodenoscopy (EGD) History of melanoma excision CHEST - W/ SKIN GRAFTING. (LEFT GROIN DONOR SITE) History of parotidectomy Status post trigger finger release Family History Sister Family hx of colon cancer Father Tobacco use Coronary heart disease Mother Diverticulosis of intestine Sister Ovarian cancer Colon cancer Grandfather Cancer Aunt Cancer Uncle Cancer Grandmother (Maternal) Cancer Other No significant family history Social History Preferred Language: Italian Communication Ability: Effective Tree Pruner Required: Yes Beliefs That Will Affect Care: None Current Living Situation: Spouse Other Information That Helps Us Care for You: No Feels Safe at Home: Yes Safety Concerns: Feels Safe At This Time Smoking Status: Former smoker Tobacco Type: cigarettes ; Second Hand Exposure: No ; Hx Alcohol Use: No Hx Substance Use: No Review of Systems Review of Systems: NEEDS EDITING Constitutional- no fever; no weight loss Eyes- no acute visual changes ENT- no sinus drainage; no pharyngitis Pulmonary- no cough, no wheezing, no shortness of breath Cardiac- no chest pain, no palpitations, no orthopnea, no dependent edema GI- As in HPI - no dysuria, no hematuria Musculoskeletal- no arthralgias, no myalgias Derm- no rashes, no new skin lesions, no changing skin lesions Hematologic- no unusual bruising, no unusual bleeding Lymphatics- no adenopathy Endocrine- no polyuria or polydipsia; no heat or cold intolerance Neuro- no headaches, no focal neurologic symptoms Psych- no anxiety, no depression Physical Exam Physical Exam: NEEDS EDITING General- adult male, NAD Head- atraumatic Eyes- PERRL, EOMI, anicteric ENT- oropharynx clear Neck- supple, no JVD, no adenopathy. Lungs- clear to auscultation and percussion, No rales, rhonchi, or wheezes. Heart- regular rhythm; no murmur, no gallop, no rub appreciated Abdomen- + RUQ pain with palpation, + BS, Soft, ND. Extremities- no pretibial edema, no calf tenderness; peripheral pulses intact Neuro- alert, oriented x 3; PERRL, EOMI, fine jewelry sales associate II-XII grossly intact, Non-focal. Skin- warm & dry Psych - somewhat anxious and cautious, but cooperative. Results & Data Vital Signs (Past 12 Hours) Vital Signs Temp Pulse Pulse Resp BP BP Pulse Ox 05/31/19 20:58 36.9 C 53 L 18 188/78 H 96 05/31/19 20:30 62 18 130/57 L 98 05/31/19 20:00 52 L 17 135/60 97 05/31/19 19:30 68 17 134/55 L 97 05/31/19 19:00 54 L 19 125/74 99 05/31/19 18:25 57 L 12 137/50 L 97 05/31/19 17:00 57 L 17 192/82 H 100 05/31/19 16:32 60 21 177/98 H 100 05/31/19 16:05 69 67 21 143/80 H 143/80 H 100 05/31/19 15:50 96 05/31/19 15:18 36.7 C 61 20 137/86 100 Code Status & VTE Plan VTE Prophylaxis Plan VTE Prophylaxis will be ordered: Yes PG Care Time/CCT Total # of Minutes Spent Total Time Spent: 65 Total Time Spent with Patient: Total time spent is greater than 50% in coordination of care (as documented) at patient's floor/unit and/or counseling patient:
[2019-05-31] MEDS: D5W AND NSS 1,000 ML IV SCH (21:59)
[2019-05-31] MEDS: TRAZODONE HCL 50 MG TAB PO SCH (22:02)
[2019-05-31] MEDS: HEPARIN SOD 5,000 UNIT/0.5 ML VIAL SQ SCH (22:02)
[2019-05-31] MEDS: BusPIRone 15 MG TAB PO SCH (22:02)
[2019-05-31] MEDS: SIMVASTATIN 20 MG TAB PO SCH (22:02)
[2019-05-31] MEDS: DOXAZosin MESYLATE TAB 2 MG TAB PO SCH (22:03)
[2019-05-31] MEDS: PANTOprazole 40 MG TAB PO SCH (22:03)
[2019-05-31] MEDS: SUCRALFATE 1 GM TAB PO SCH (22:04)
[2019-05-31] MEDS: METOPROLOL SUCC 50MG EXT REL TAB PO SCH (22:06)
[2019-05-31] MEDS: MoRPHine SULFATE 2 MG/ML CARP IV PRN (22:43)
[2019-06-01] MEDS: SUCRALFATE 1 GM TAB PO SCH ×2 (05:52→11:05)
[2019-06-01] MEDS: D5W AND NSS 1,000 ML IV SCH ×3 (05:53→23:24)
[2019-06-01 06:29] LABS: Hematocrit (blood only) 32.6 % (42-52); Hemoglobin 10.8 g/dL (14.0-18.0); Mean Corpuscular Hemoglobin 29.9 pg (25-34); Mean Corpuscular Hgb Conc 33.1 g/dL (32-36); Mean Corpuscular Volume 90.3 fL (80-100); Mean Platelet Volume 10.9 fL (7.4-10.4); Platelet Count 138 K/uL (130-400); RDW Coefficient of Variation 13.9 % (11.5-14.5); RDW Standard Deviation 46.4 fL (36.4-46.3); Red Blood Count 3.61 M/uL (4.7-6.1); White Blood Count 5.48 K/uL (4.8-10.8)
[2019-06-01 06:52] LABS: BUN Creatinine Ratio 11.8 (10-20); Calcium 8.1 mg/dl (8.5-10.1); Creatinine Clr Calc Pharmacy 38.6 ml/min; Est GFR (African American) 49.3; Est GFR (Non-African American) 42.5; Magnesium 2.3 mg/dl (1.8-2.4); Potassium 3.9 mmol/L (3.5-5.1)
[2019-06-01] MEDS: fentaNYL 50 MCG/HR TDSY TD SCH (08:45)
[2019-06-01] MEDS: PANTOprazole 40 MG TAB PO SCH ×2 (08:48→19:16)
[2019-06-01] MEDS: BusPIRone 15 MG TAB PO SCH ×2 (08:48→19:14)
[2019-06-01] MEDS: SERTRALINE HCL 100 MG TABLET PO SCH (08:48)
[2019-06-01] MEDS: HEPARIN SOD 5,000 UNIT/0.5 ML VIAL SQ SCH ×2 (08:49→20:58)
[2019-06-01] MEDS: MAGNESIUM OXIDE 400 MG TAB PO SCH (08:49)
[2019-06-01] MEDS: MoRPHine SULFATE 4 MG/ML 1 ML CARP\\VIAL IV PRN ×2 (09:11→17:47)
[2019-06-01] MEDS: ONDANSETRON INJ 2 MG/ML 2 ML VIAL IV PRN (09:16)
--- NOTE | 2019-06-01 09:51 | Surgery Consultation ---
Date of Consultation June 01, 2019 Assessment & Plan (1) Abdominal pain, RUQ: CT and U/S have not shown gallstones or inflammatory changes. He has evidence of dyskinesia on HIDA. Uncertain that his pain will resolve with cholecystectomy but the procedure and recovery were discussed with him. He wants to think about it. Dr Schmidt-patient has evidence of gallbladder dysfunction with an ejection fraction of 12% His ultrasound shows normal gallbladder with no stones, his CAT scan does not show A significantly distended gallbladder with no thickened pericholecystic fluid. Appears to be complaining significantly of leg pain for which he would like narcotics. I do not feel cholecystectomy would alleviate his current problems-do not feel he requires Emergent or urgent cholecystectomy. GI evaluation in the past has not found any Specific etiology for his generalized complaints. We will follow with the medical team for now History of Present Illness Attending Physician: Donald Sommers DO History of Present Illness 78 y/o male with approx 1 month history RUQ pain, nausea, decreased po intake and weight loss. Was scheduled to be seen in surgery clinic this week for abnormal HIDA and has been in the ER several times recently. He is complaining more now of leg pain despite Fentanyl patch, recent Tylenol and morphine. Allergies Allergy/AdvReac Type Severity Reaction Status Date / Time No Known Allergies Allergy Verified 05/31/19 15:47 Home Medications Home Medications Medication Instructions Recorded Confirmed Type aspirin 81 mg tablet,delayed 81 mg PO QAM #30 tab 02/23/19 05/31/19 Rx release bumetanide 1 mg tablet 1 mg PO QAM #60 tab 02/23/19 05/31/19 Rx calcium carbonate 600 mg (1,500 1 tab PO BID #30 tab 02/23/19 05/31/19 Rx mg)-vitamin D3 200 unit tablet docusate sodium 100 mg tablet 200 mg PO QAM #60 tab 02/23/19 05/31/19 Rx dutasteride 0.5 mg-tamsulosin ER 1 cap PO HS #90 cap 02/23/19 05/31/19 Rx 0.4 mg capsule ext.release 24hr mphas lisinopril 40 mg tablet 40 mg PO QAM #90 tab 02/23/19 05/31/19 Rx magnesium 250 mg tablet 250 mg PO QAM #30 tab 02/23/19 05/31/19 Rx simvastatin 20 mg tablet 20 mg PO HS #90 tab 02/23/19 05/31/19 Rx sucralfate 1 g PO Q6H 04/09/19 05/31/19 History trazodone 50 mg PO HS 04/14/19 05/31/19 History buspirone 30 mg PO BID 04/29/19 05/31/19 History fentanyl 1 patch TRANSDERMAL Q72H 04/29/19 05/31/19 History sertraline 50 mg PO QAM 04/29/19 05/31/19 History meloxicam 15 mg tablet 15 mg PO QAM #90 tab 05/07/19 05/31/19 Rx metoprolol succinate ER 50 mg 100 mg PO HS #180 tab 05/07/19 05/31/19 Rx tablet,extended release 24 hr hyoscyamine sulfate 0.125 mg tablet 0.125 mg PO QID PRN #120 tab 05/11/19 05/31/19 Rx pantoprazole 40 mg PO BID 05/18/19 05/31/19 History doxazosin [Cardura] 8 mg PO HS 05/26/19 05/31/19 History lansoprazole 30 mg PO DAILY 05/26/19 05/31/19 History multivitamin [Multiple Vitamins] 1 tab PO DAILY 05/27/19 05/31/19 History Patient History Medical History Opioid dependence (Chronic) CKD (chronic kidney disease) (Chronic) HLD (hyperlipidemia) (Chronic) Anxiety (Chronic) Chronic lower back pain (Chronic) Intractable low back pain (Chronic) Lumbago (Chronic) Panic attack (Inactive) BPH (benign prostatic hyperplasia) Blind LEFT EYE Deep vein thrombosis RLE - 3 YEARS AGO - CAUSE? - TREATED WITH BLOOD THINNERS. GERD (gastroesophageal reflux disease) Hearing deficit BL MCRAE History of melanoma Hyperlipidemia Hypertension Hyperthyroidism IBS (irritable bowel syndrome) Lumbar herniated disc MULTIPLE Multiple renal cysts REPORTS ONLY HAS 1 FUNCTIONING KIDNEY - FOLLOWS W/ DR. 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 History of esophagogastroduodenoscopy (EGD) History of melanoma excision CHEST - W/ SKIN GRAFTING. 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: Yes Beliefs That Will Affect Care: None Current Living Situation: Spouse Other Information That Helps Us Care for You: No Feels Safe at Home: Yes Safety Concerns: Feels Safe At This Time Smoking Status: Former smoker Tobacco Type: cigarettes ; Second Hand Exposure: No ; Hx Alcohol Use: No Hx Substance Use: No Review of Systems Constitutional: + fever, + sweats and + anorexia Gastrointestinal: + abdominal pain, + nausea and + diarrhea/loose stools Physical Exam Constitutional: WD/WN, vitals as above + in distress (anxiety, leg pain) Respiratory: normal respiratory effort; no respiratory distress Cardiovascular: Rate/Rhythm: regular rate and regular rhythm Gastrointestinal (Abdomen): Inspection/Auscultation: abdomen not distended Percussion/Palpation: + abdomen tender (minimal RLQ) and abdomen soft Results & Data Vital Signs (Past 12 Hours) Vital Signs Temp Pulse Pulse Resp BP Pulse Ox 06/01/19 07:12 36.8 C 55 L 18 128/60 95 06/01/19 03:23 36.5 C 54 L 18 92/44 L 94 06/01/19 00:00 52 L 05/31/19 23:04 36.8 C 51 L 18 145/65 H 95 Diagnostic Findings [facility], [place] [phone] Nuclear Medicine Report Patient: PUJA GROSSMAN AAdmit Date: 05/21/19 MR#: [id number]: [address] Acct ID:[id number]: Date: 1940[facility] Zip: [place] [address] Age: 78Location: [place] Sex: M Room/Bed: Att Phy: eNly Connoragnosis: EPIGASTRIC ABD PAIN Tori Phy: Murali Trannis LoboShan, III, MDService Date: 05/21/19 Fam Phy:Interpreting Phy: Iraj Mandujano MD Admit Phy: Ordering Phy: Nely Connor PA-C cc: ~ NUCLEAR HEPATOBILIARY SCAN WITH EJECTION FRACTION IMAGING CLINICAL HISTORY: Epigastric abdominal pain. COMPARISON STUDY: Abdominal ultrasound dated 04/09/2019. TECHNIQUE: Static images of the liver and anterior abdomen were obtained at 20 minutes, 40 minutes, and at 60 minutes following the IV administration of 5.5mCi of technetium 99m Choletec. 1.6 mcg of sincalide was then injected with additional static images acquired at 1 minute and 45 minutes to calculate the gallbladder ejection fraction. Additional dynamic imaging was not performed due to patient claustrophobia. FINDINGS: The hepatobiliary scan shows prompt and homogeneous hepatic uptake. There is visualized activity within the intra and extrahepatic biliary tree on the 20 minute image, and within the gallbladder on the 40 minute image. There is normal biliary to bowel transit, with small bowel visualized by 40 minutes. On the sincalide imaging, the gallbladder ejection fraction was measured at 12%. IMPRESSION: 1. There is normal visualization of the gallbladder with no scintigraphic evidence of cholecystitis. 2. The gallbladder ejection fraction measured 12%. This is abnormally diminished and suggests gallbladder dysfunction. Electronically signed by: Iraj Mandujano M.D. 05/21/2019 11:24 AM PG Care Time/CCT Total # of Minutes Spent Total Time Spent with Patient: Total time spent is greater than 50% in coordination of care (as documented) at patient's floor/unit and/or counseling patient:
[2019-06-01] MEDS ORDERED: HYDROmorphone INJ 0.5 MG/0.5 ML SYR IV STA (10:50)
[2019-06-01] MEDS: SUCRALFATE 1 GM/10 ML UDC PO SCH ×3 (11:23→23:28)
[2019-06-01] MEDS: CHECK FENTANYL PATCH PLACEMENT SCH ×2 (15:20→23:28)
--- NOTE | 2019-06-01 17:21 | Hospitalist Progress Note ---
Date of Service June 01, 2019 Assessment & Plan (1) Acute renal failure superimposed on stage 3 chronic kidney disease: Creat usually 1.3 range with GFR 50. Creat elevated at 1.9 on admission, down to 1.5 this morning, responding well to fluids Suspect due to decreased po intake resulting in pre-renal azotemia exacerbated by using Bumex Hold Bumex IV hydration. follow labs. Hold Meloxicam and lisinopril for now. (2) Dysfunctional gallbladder: Symptomatic EF on Hida scan 12% no pain today general surgery unsure that cholecystectomy would improve symptoms no plan for surgery at this time patient tolerating low fat diet had some pain in evening after dinner, will monitor (3) Chronic lower back pain: Continue Fentanyl patch was possibly on Hydrocodone but he denies taking will definitely check prescribers database prior to discharge reviewed prior films, MRI lumbar spine 2017 showed mild disease at best (4) Abdominal pain, RUQ: [place] due to dysfunctional gallbladder. intermittent, pain completely gone this morning (5) Anxiety: Continue home meds may be leading to exaggerating symptoms, some drug seeking behavior (6) HLD (hyperlipidemia): Continue simvastatin. (7) HTN (hypertension): Continue metoprolol Add prn hydralazine as I held lisinopril and Bumex. (8) Pituitary adenoma: Follows with Dr. Reece, endocrine locally Plans to be evaluated in [place] for surgical treatment Subjective patient very anxious and in mild distress this AM wanted to discuss right leg pain, in his thigh and radiating down past knee excruciating pain, already on Fentanyl and no relief with Dilaudid IV he wanted to see pain management, explained that it was not appropriate reviewed prior records, he saw pain management in 2018, had 3 nerve blocks, no success they would not offer him narcotics he currently gets Fentanyl patch from PCP reviewed prior films, MRI lumbar spine with mild disease abdominal pain was gone this morning reviewed chart, HIDA showed low EF d/w Dr. Schmidt, no obvious reason for cholecystectomy, he fears he would still have pain after removing GB reviewed labs, Cr improved to 1.5, electrolytes stable, CBC stable Review of Systems Review of Systems: All systems reviewed & are unremarkable except as noted in HPI & below Gastrointestinal: + abdominal pain (intermittent, RUQ); no nausea, no vomiting, no constipation and no diarrhea/loose stools Musculoskeletal: + myalgia (right thigh) Physical Exam Constitutional: WD/WN, vitals as above Eyes: PERRL, conjunctivae normal, anicteric sclerae ENMT: external ear and nose normal, oropharynx normal Neck: trachea midline, no thyromegaly Respiratory: normal respiratory effort, lungs clear to auscultation Cardiovascular: RRR, no murmur, no edema Gastrointestinal (Abdomen): normal bowel sounds, soft, nontender, no hepa tosplenomegaly Musculoskeletal: no cyanosis or clubbing, extremities motor strength 5/5 Skin: no rashes, warm and dry Neurologic: patellar DTR's 2+ bilat, sensation intact and PERRL, EOMI, accommodation nl, no face palsy, no dysarthria Psychiatric: Orientation: alert and oriented x 3 Affect: + anxious affect and + irritable affect Lymphatic: no cervical or axillary lymphadenopathy Results & Data Vital Signs (Past 12 Hours) Vital Signs Temp Pulse Resp BP Pulse Ox 06/01/19 15:19 36.6 C 50 L 14 104/53 L 90 06/01/19 12:13 37.0 C 56 L 18 128/57 L 91 06/01/19 07:12 36.8 C 55 L 18 128/60 95 Laboratory Results Laboratory Results - last 24 hr 05/31/19 06/01/19 06/01/19 17:35 05:55 05:55 WBC 5.48 RBC 3.61 L Hgb 10.8 L D Hct 32.6 L MCV 90.3 MCH 29.9 MCHC 33.1 RDW Std Deviation 46.4 H RDW Coeff of Mehnaz 13.9 Plt Count 138 MPV 10.9 H Sodium 144 Potassium 3.9 D Chloride 108 H Carbon Dioxide 32 Anion Gap 4.0 BUN 18 Creatinine 1.55 H D Est Cr Clr Drug Dosing 38.6 Est GFR ( Amer) 49.3 Est GFR (Non-Af Amer) 42.5 BUN/Creatinine Ratio 11.8 Glucose 96 Calcium 8.1 L D Magnesium 2.3 Urine Color Yellow Urine Appearance Clear Urine pH >= 9.0 H Ur Specific [place] 1.011 Urine Protein Negative Urine Glucose (UA) Negative Urine Ketones Trace H Urine Blood Negative Urine Nitrite Negative Urine Bilirubin Negative Urine Urobilinogen Negative Ur Leukocyte Esterase Negative Medications Administered Current Inpatient Medications Acetaminophen (Tylenol) 650 mg PO Q4H PRN PRN Reason: mild pain or fever Stop: 06/30/19 20:56 Last Admin: 06/01/19 09:12 Dose: 650 mg Documented by: Buspirone HCl (Buspar) 30 mg PO BID TOD Stop: 06/30/19 20:59 Last Admin: 06/01/19 08:48 Dose: 30 mg Documented by: Doxazosin Mesylate (Cardura) 8 mg PO HS TOD Stop: 06/30/19 20:59 Last Admin: 05/31/19 22:03 Dose: 8 mg Documented by: Fentanyl (Duragesic) 50 mcg TD Q72H TOD Stop: 06/15/19 07:59 Last Admin: 06/01/19 08:45 Dose: 50 mcg Documented by: Heparin Sodium (Porcine) (Heparin Sodium (Porcine)) 5,000 units SQ Q12 TOD Stop: 06/30/19 20:59 Last Admin: 06/01/19 08:49 Dose: 5,000 units Documented by: Hydromorphone HCl (Dilaudid) 0.5 mg IV Q6 PRN PRN Reason: Pain Stop: 06/15/19 17:18 Dextrose/Sodium Chloride (D5w And Nss) 1,000 mls @ 125 mls/hr IV .Q8H TOD Stop: 06/30/19 20:56 Last Infusion: 06/01/19 17:17 Dose: 125 mls/hr Documented by: Magnesium Oxide (Mag-Ox) 400 mg PO QAM TOD Stop: 07/01/19 08:59 Last Admin: 06/01/19 08:49 Dose: 400 mg Documented by: Metoprolol Succinate (Toprol Xl) 100 mg PO HS [facility] Stop: 06/30/19 20:59 Last Admin: 05/31/19 22:06 Dose: Not Given Documented by: Miscellaneous (Order Awaiting Action) 1 ea N/A QS [facility] Stop: 07/01/19 07:59 Last Admin: 06/01/19 14:51 Dose: Not Given Documented by: Miscellaneous (Fentanyl Patch Check Placement) 1 ea N/A QS [facility] Stop: 07/01/19 15:59 Last Admin: 06/01/19 15:20 Dose: 1 ea Documented by: Miscellaneous (Fentanyl Patch Remove & Waste) 1 ea N/A Q72H TOD Stop: 07/01/19 07:58 Last Admin: 06/01/19 08:46 Dose: 1 ea Documented by: Morphine Sulfate (Morphine Sulfate) 2 mg IV Q3H PRN PRN Reason: Moderate Pain (4,5,6) Stop: 06/14/19 20:56 Last Admin: 05/31/19 22:43 Dose: 2 mg Documented by: Morphine Sulfate (Morphine Sulfate) 4 mg IV Q4H PRN PRN Reason: Severe Pain (7,8,9, or 10) Stop: 06/14/19 20:56 Last Admin: 06/01/19 09:11 Dose: 4 mg Documented by: Ondansetron HCl (Zofran) 4 mg IV Q6H PRN PRN Reason: Nausea Stop: 06/30/19 20:56 Last Admin: 06/01/19 09:16 Dose: 4 mg Documented by: Pantoprazole Sodium (Protonix) 40 mg PO BID [facility] Stop: 06/30/19 20:59 Last Admin: 06/01/19 08:48 Dose: 40 mg Documented by: Ropinirole HCl (Requip) 0.25 mg PO [facility] Stop: 07/01/19 20:59 Sertraline HCl (Zoloft) 50 mg PO QAM [facility] Stop: 07/01/19 08:59 Last Admin: 06/01/19 08:48 Dose: 50 mg Documented by: Simvastatin (Zocor) 20 mg PO HS [facility] Stop: 06/30/19 20:59 Last Admin: 05/31/19 22:02 Dose: 20 mg Documented by: Sucralfate (Carafate) 1 gm PO Q6 [facility] Stop: 07/01/19 00:00 Last Admin: 06/01/19 11:23 Dose: Not Given Documented by: Trazodone HCl (Desyrel) 50 mg PO [facility] Stop: 06/30/19 20:59 Last Admin: 05/31/19 22:02 Dose: 50 mg Documented by: PG Care Time/CCT Total # of Minutes Spent Total Time Spent with Patient: Total time spent is greater than 50% in coordination of care (as documented) at patient's floor/unit and/or counseling patient:
[2019-06-01] MEDS: HYDROmorphone INJ 0.5 MG/0.5 ML SYR IV PRN (19:13)
[2019-06-01] MEDS: ROPINIROLE HCL 0.25 MG TABLET PO SCH (19:14)
[2019-06-01] MEDS: DOXAZosin MESYLATE TAB 2 MG TAB PO SCH (19:15)
[2019-06-01] MEDS: SIMVASTATIN 20 MG TAB PO SCH (19:16)
[2019-06-01] MEDS: METOPROLOL SUCC 50MG EXT REL TAB PO SCH (19:16)
[2019-06-01] MEDS: TRAZODONE HCL 50 MG TAB PO SCH (20:58)
[2019-06-02] MEDS: SUCRALFATE 1 GM/10 ML UDC PO SCH ×4 (05:32→23:43)
--- NOTE | 2019-06-02 06:14 | Surgery Progress Note ---
Date of Service June 02, 2019 Assessment & Plan (1) Dysfunctional gallbladder: says he feels some Rt upper abd discomfort had some pain after eating does not have cholecystitis normally would proceed with lap alistair but will not alleviate other issues could consider this week if pt agrees Results & Data Vital Signs (Past 12 Hours) Vital Signs Temp Pulse Pulse Resp BP Pulse Ox 06/02/19 03:44 36.8 C 54 L 19 136/59 L 96 06/02/19 00:06 36.6 C 71 17 120/60 93 06/01/19 20:00 36.9 C 53 L 22 168/66 H 99 PG Care Time/CCT Total # of Minutes Spent Total Time Spent with Patient: Total time spent is greater than 50% in coordination of care (as documented) at patient's floor/unit and/or counseling patient:
[2019-06-02 06:19] LABS: Hematocrit (blood only) 29.9 % (42-52); Hemoglobin 10.1 g/dL (14.0-18.0); Mean Corpuscular Hemoglobin 30.9 pg (25-34); Mean Corpuscular Hgb Conc 33.8 g/dL (32-36); Mean Corpuscular Volume 91.4 fL (80-100); Mean Platelet Volume 10.3 fL (7.4-10.4); Platelet Count 132 K/uL (130-400); RDW Coefficient of Variation 14.3 % (11.5-14.5); RDW Standard Deviation 47.8 fL (36.4-46.3); Red Blood Count 3.27 M/uL (4.7-6.1); White Blood Count 5.75 K/uL (4.8-10.8)
[2019-06-02] MEDS: D5W AND NSS 1,000 ML IV SCH (06:38)
[2019-06-02 06:49] LABS: Alanine Aminotransferase 14 U/L (12-78); Albumin Level 2.6 gm/dl (3.4-5.0); Aspartate Aminotransferase 12 U/L (15-37); BUN Creatinine Ratio 9.7 (10-20); Bilirubin Direct < 0.1 mg/dl (0-0.2); Blood Urea Nitrogen 13 mg/dl (7-18); Calcium 7.7 mg/dl (8.5-10.1); Carbon Dioxide 28 mmol/L (21-32); Chloride 112 mmol/L (98-107); Creatinine Clr Calc Pharmacy 46.4 ml/min; Est GFR (African American) 61.6; Est GFR (Non-African American) 53.1; Glucose 97 mg/dl (70-99); Sodium 145 mmol/L (136-145)
[2019-06-02 07:00] LABS: Alkaline Phosphatase 68 U/L (45-117); Bilirubin,Total 0.2 mg/dl (0.2-1); Total Protein 4.9 gm/dl (6.4-8.2)
[2019-06-02] MEDS: MAGNESIUM OXIDE 400 MG TAB PO SCH ×2 (07:33→09:33)
[2019-06-02] MEDS: CHECK FENTANYL PATCH PLACEMENT SCH ×3 (07:34→23:44)
[2019-06-02] MEDS: HYDROmorphone INJ 0.5 MG/0.5 ML SYR IV PRN (07:36)
[2019-06-02] MEDS: ONDANSETRON INJ 2 MG/ML 2 ML VIAL IV PRN (07:37)
--- NOTE | 2019-06-02 09:20 | Hospitalist Progress Note ---
Date of Service June 02, 2019 Assessment & Plan (1) Acute renal failure superimposed on stage 3 chronic kidney disease: Creat usually 1.3 range with GFR 50. Creat elevated at 1.9 on admission, down to 1.2 today, responded well to fluids Suspect due to decreased po intake resulting in pre-renal azotemia exacerbated by using Bumex continue to Hold Bumex today, likely resume tomorrow cut fluids to 80cc/hr Hold Meloxicam and lisinopril for now. (2) Dysfunctional gallbladder: Symptomatic intermittently, had some pain with eating last night and then vomiting this morning EF on Hida scan 12% general surgery unsure that cholecystectomy would improve symptoms but if he continues to have symptoms then surgery could be option patient tolerating low fat diet (3) Chronic lower back pain: Continue Fentanyl patch was possibly on Hydrocodone but he denies taking will definitely check prescribers database prior to discharge reviewed prior films, MRI lumbar spine 2017 showed mild disease at best Dilaudid 0.5mg IV PRN, not needing it today (4) Abdominal pain, RUQ: [place] due to dysfunctional gallbladder. intermittent, pain associated with eating (5) Anxiety: Continue home meds Ativan PRN may be leading to exaggerating symptoms, some drug seeking behavior (6) HLD (hyperlipidemia): Continue simvastatin. (7) HTN (hypertension): Continue metoprolol Add prn hydralazine (8) Pituitary adenoma: Follows with Dr. Reece, endocrine locally Plans to be evaluated in [place] for surgical treatment will help him reschedule appt Subjective patient much calmer this morning he ate his breakfast, had some nausea and vomiting last night had some pain and nausea after eating appreciate note from Dr. Schmidt, may consider cholecystectomy this week no leg pain today, c/o some anxiety reviewed labs, Cr down to normal at 1.2, CBC is stable, LFT normal Review of Systems Review of Systems: All systems reviewed & are unremarkable except as noted in HPI & below Gastrointestinal: + abdominal pain, + nausea and + vomiting; no constipation and no diarrhea/loose stools Psychiatric: + anxiety Physical Exam Constitutional: WD/WN, vitals as above Eyes: PERRL, conjunctivae normal, anicteric sclerae ENMT: external ear and nose normal, oropharynx normal Neck: trachea midline, no thyromegaly Respiratory: normal respiratory effort, lungs clear to auscultation Cardiovascular: RRR, no murmur, no edema Gastrointestinal (Abdomen): normal bowel sounds, soft, nontender, no hepatosplenomegaly Musculoskeletal: no cyanosis or clubbing, extremities motor strength 5/5 Skin: no rashes, warm and dry Neurologic: patellar DTR's 2+ bilat, sensation intact and PERRL, EOMI, accommodation nl, no face palsy, no dysarthria Psychiatric: Orientation: alert and oriented x 3 Affect: + anxious affect and + irritable affect Lymphatic: no cervical or axillary lymphadenopathy Results & Data Vital Signs (Past 12 Hours) Vital Signs Temp Pulse Pulse Resp BP Pulse Ox 06/02/19 08:28 138/64 06/02/19 07:29 36.8 C 66 16 190/86 H 100 06/02/19 03:44 36.8 C 54 L 19 136/59 L 96 06/02/19 00:06 36.6 C 71 17 120/60 93 Laboratory Results Laboratory Results - last 24 hr 06/02/19 06/02/19 05:54 05:54 WBC 5.75 RBC 3.27 L Hgb 10.1 L Hct 29.9 L MCV 91.4 MCH 30.9 MCHC 33.8 RDW Std Deviation 47.8 H RDW Coeff of Mehnaz 14.3 Plt Count 132 MPV 10.3 Sodium 145 Potassium 4.0 Chloride 112 H Carbon Dioxide 28 Anion Gap 5.0 BUN 13 Creatinine 1.29 Est Cr Clr Drug Dosing 46.4 Est GFR ( Amer) 61.6 Est GFR (Non-Af Amer) 53.1 BUN/Creatinine Ratio 9.7 L Glucose 97 Calcium 7.7 L Total Bilirubin 0.2 Direct Bilirubin < 0.1 AST 12 L ALT 14 Alkaline Phosphatase 68 Total Protein 4.9 L D Albumin 2.6 L Medications Administered Current Inpatient Medications Acetaminophen (Tylenol) 650 mg PO Q4H PRN PRN Reason: mild pain or fever Stop: 06/30/19 20:56 Last Admin: 06/01/19 09:12 Dose: 650 mg Documented by: Buspirone HCl (Buspar) 30 mg PO BID TOD Stop: 06/30/19 20:59 Last Admin: 06/01/19 19:14 Dose: 30 mg Documented by: Doxazosin Mesylate (Cardura) 8 mg PO HS [facility] Stop: 06/30/19 20:59 Last Admin: 06/01/19 19:15 Dose: 8 mg Documented by: Fentanyl (Duragesic) 50 mcg TD Q72H TOD Stop: 06/15/19 07:59 Last Admin: 06/01/19 08:45 Dose: 50 mcg Documented by: Heparin Sodium (Porcine) (Heparin Sodium (Porcine)) 5,000 units SQ Q12 TOD Stop: 06/30/19 20:59 Last Admin: 06/01/19 20:58 Dose: 5,000 units Documented by: Hydromorphone HCl (Dilaudid) 0.5 mg IV Q6 PRN PRN Reason: Pain Stop: 06/15/19 17:18 Last Admin: 06/02/19 07:36 Dose: 0.5 mg Documented by: Sodium Chloride (Nss 1000ml) 1,000 mls @ 80 mls/hr IV .[id number] [facility] Stop: 07/02/19 09:14 Magnesium Oxide (Mag-Ox) 400 mg PO QAM [facility] Stop: 07/01/19 08:59 Last Admin: 06/01/19 08:49 Dose: 400 mg Documented by: Metoprolol Succinate (Toprol Xl) 100 mg PO [facility] Stop: 06/30/19 20:59 Last Admin: 06/01/19 19:16 Dose: Not Given Documented by: Miscellaneous (Order Awaiting Action) 1 ea N/A QS [facility] Stop: 07/01/19 07:59 Last Admin: 06/02/19 09:07 Dose: Not Given Documented by: Miscellaneous (Fentanyl Patch Check Placement) 1 ea N/A QS [facility] Stop: 07/01/19 15:59 Last Admin: 06/02/19 07:34 Dose: 1 ea Documented by: Miscellaneous (Fentanyl Patch Remove & Waste) 1 ea N/A Q72H [facility] Stop: 07/01/19 07:58 Last Admin: 06/01/19 08:46 Dose: 1 ea Documented by: Morphine Sulfate (Morphine Sulfate) 2 mg IV Q3H PRN PRN Reason: Moderate Pain (4,5,6) Stop: 06/14/19 20:56 Last Admin: 05/31/19 22:43 Dose: 2 mg Documented by: Morphine Sulfate (Morphine Sulfate) 4 mg IV Q4H PRN PRN Reason: Severe Pain (7,8,9, or 10) Stop: 06/14/19 20:56 Last Admin: 06/01/19 17:47 Dose: 4 mg Documented by: Ondansetron HCl (Zofran) 4 mg IV Q6H PRN PRN Reason: Nausea Stop: 06/30/19 20:56 Last Admin: 06/02/19 07:37 Dose: 4 mg Documented by: Pantoprazole Sodium (Protonix) 40 mg PO BID [facility] Stop: 06/30/19 20:59 Last Admin: 06/01/19 19:16 Dose: 40 mg Documented by: Ropinirole HCl (Requip) 0.25 mg PO [facility] Stop: 07/01/19 20:59 Last Admin: 06/01/19 19:14 Dose: 0.25 mg Documented by: Sertraline HCl (Zoloft) 50 mg PO QAM [facility] Stop: 07/01/19 08:59 Last Admin: 06/01/19 08:48 Dose: 50 mg Documented by: Simvastatin (Zocor) 20 mg PO [facility] Stop: 06/30/19 20:59 Last Admin: 06/01/19 19:16 Dose: 20 mg Documented by: Sucralfate (Carafate) 1 gm PO Q6 [facility] Stop: 07/01/19 00:00 Last Admin: 06/02/19 05:32 Dose: 1 gm Documented by: Trazodone HCl (Desyrel) 50 mg PO [facility] Stop: 06/30/19 20:59 Last Admin: 06/01/19 20:58 Dose: 50 mg Documented by: PG Care Time/CCT Total # of Minutes Spent Total Time Spent with Patient: Total time spent is greater than 50% in coordination of care (as documented) at patient's floor/unit and/or counseling patient:
[2019-06-02] MEDS: SODIUM CHLORIDE 0.9% 1000ML 1,000 ML IV SCH ×2 (09:33→22:20)
[2019-06-02] MEDS: HEPARIN SOD 5,000 UNIT/0.5 ML VIAL SQ SCH ×2 (09:34→20:39)
[2019-06-02] MEDS: BusPIRone 15 MG TAB PO SCH ×2 (09:34→20:30)
[2019-06-02] MEDS: SERTRALINE HCL 100 MG TABLET PO SCH (09:34)
[2019-06-02] MEDS: PANTOprazole 40 MG TAB PO SCH ×2 (09:34→20:33)
--- NOTE | 2019-06-02 12:52 | Medical Student Progress Note ---
Date of Service June 02, 2019 Assessment & Plan (1) Acute renal failure superimposed on stage 3 chronic kidney disease: Creatinine is 1.29 (2) Dysfunctional gallbladder: Will continue to monitor. General surgery is still being consulted. (3) Abdominal pain, RUQ: [place] due to dysfunctional gallbladder. Pain, nausea, and vomiting this morning, but symptoms have resolved now. Subjective Patient reports no abdominal pain yesterday and through last night. Still no appetite, but was able to eat dinner last night because he felt like he ought to. Woke up this morning with RUQ pain and nausea. He was unable to eat breakfast due to the nausea, and vomited at around 7:30 AM. Reports that both pain and nausea resolved with emesis, but the nurse also administered Zofran at the time. Pain is now "non-existent." Had one bm yesterday morning that he reports as loose and "beige." Patient's leg pain has improved. Reports pain last night that resolved after being given medication and was able to sleep through the night. He currently has no leg pain. 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) Neck: normal visual inspection Respiratory: normal respiratory effort, lungs clear to auscultation Cardiovascular: RRR, no murmur, no edema Gastrointestinal (Abdomen): Inspection/Auscultation: abdomen normal to inspection and normal bowel sounds; abdomen not distended Percussion/Palpation: abdomen soft; abdomen nontender and no guarding Psychiatric: A+Ox3, euthymic affect Results & Data Vital Signs (Past 12 Hours) Vital Signs Temp Pulse Pulse Resp BP Pulse Ox 06/02/19 11:20 36.6 C 58 L 18 149/72 H 96 06/02/19 08:28 138/64 06/02/19 07:29 36.8 C 66 16 190/86 H 100 06/02/19 03:44 36.8 C 54 L 19 136/59 L 96 Laboratory Results Laboratory Results - last 24 hr 06/02/19 06/02/19 05:54 05:54 WBC 5.75 RBC 3.27 L Hgb 10.1 L Hct 29.9 L MCV 91.4 MCH 30.9 MCHC 33.8 RDW Std Deviation 47.8 H RDW Coeff of Mehnaz 14.3 Plt Count 132 MPV 10.3 Sodium 145 Potassium 4.0 Chloride 112 H Carbon Dioxide 28 Anion Gap 5.0 BUN 13 Creatinine 1.29 Est Cr Clr Drug Dosing 46.4 Est GFR ( Amer) 61.6 Est GFR (Non-Af Amer) 53.1 BUN/Creatinine Ratio 9.7 L Glucose 97 Calcium 7.7 L Total Bilirubin 0.2 Direct Bilirubin < 0.1 AST 12 L ALT 14 Alkaline Phosphatase 68 Total Protein 4.9 L D Albumin 2.6 L
[2019-06-02] MEDS: LORazepam 0.5 MG TAB PO PRN ×2 (13:36→22:19)
--- NOTE | 2019-06-02 16:12 | Anesthesiology Consultation ---
Date of Service June 02, 2019 Assessment & Plan (1) Encounter for pre-operative examination: Chart Review Chart Review: Acceptable Risk for Surgery and Patient NOT seen in Pre Admission Testing Consults Requested none History Surgery Operation Date: 06/03/19 08:50 Proposed Procedures p Laparoscopic Cholecystectomy - Kai Schmidt MD, FACS Height/Weight Height: 5 ft 8 in Weight: 78.2 kg Allergies Allergy/AdvReac Type Severity Reaction Status Date / Time No Known Allergies Allergy Verified 05/31/19 15:47 Medications Home Medications Medication Instructions Recorded Confirmed Last Taken aspirin 81 mg tablet,delayed 81 mg PO QAM #30 tab 02/23/19 05/31/19 05/31/19 release bumetanide 1 mg tablet 1 mg PO QAM #60 tab 02/23/19 05/31/19 05/31/19 calcium carbonate 600 mg (1,500 1 tab PO BID #30 tab 02/23/19 05/31/19 05/31/19 mg)-vitamin D3 200 unit tablet docusate sodium 100 mg tablet 200 mg PO QAM #60 tab 02/23/19 05/31/19 05/31/19 dutasteride 0.5 mg-tamsulosin ER 1 cap PO HS #90 cap 02/23/19 05/31/19 05/29/19 0.4 mg capsule ext.release 24hr mphas lisinopril 40 mg tablet 40 mg PO QAM #90 tab 02/23/19 05/31/19 05/31/19 magnesium 250 mg tablet 250 mg PO QAM #30 tab 02/23/19 05/31/19 05/31/19 simvastatin 20 mg tablet 20 mg PO HS #90 tab 02/23/19 05/31/19 05/29/19 sucralfate 1 g PO Q6H 04/09/19 05/31/19 05/31/19 trazodone 50 mg PO HS 04/14/19 05/31/19 05/29/19 buspirone 30 mg PO BID 04/29/19 05/31/19 05/31/19 fentanyl 1 patch TRANSDERMAL Q72H 04/29/19 05/31/19 05/31/19 sertraline 50 mg PO QAM 04/29/19 05/31/19 05/31/19 meloxicam 15 mg tablet 15 mg PO QAM #90 tab 05/07/19 05/31/19 05/31/19 metoprolol succinate ER 50 mg 100 mg PO HS #180 tab 05/07/19 05/31/19 05/29/19 tablet,extended release 24 hr hyoscyamine sulfate 0.125 mg tablet 0.125 mg PO QID PRN #120 tab 05/11/19 05/31/19 05/31/19 pantoprazole 40 mg PO BID 05/18/19 05/31/19 05/31/19 doxazosin [Cardura] 8 mg PO HS 05/26/19 05/31/19 05/29/19 lansoprazole 30 mg PO DAILY 05/26/19 05/31/19 05/31/19 multivitamin [Multiple Vitamins] 1 tab PO DAILY 05/27/19 05/31/19 05/31/19 Active Medications Generic Name Dose Route Start Last Admin Trade Name Freq PRN Reason Stop Dose Admin Acetaminophen 650 mg 05/31/19 20:57 06/01/19 09:12 Tylenol PO 06/30/19 20:56 650 mg Q4H PRN Administration mild pain or fever Buspirone HCl 30 mg 05/31/19 21:00 06/02/19 09:34 Buspar PO 06/30/19 20:59 30 mg BID TOD Administration Doxazosin Mesylate 8 mg 05/31/19 21:00 06/01/19 19:15 Cardura PO 06/30/19 20:59 8 mg HS TOD Administration Fentanyl 50 mcg 06/01/19 08:00 06/01/19 08:45 Duragesic TD 06/15/19 07:59 50 mcg Q72H TOD Administration Heparin Sodium (Porcine) 5,000 units 05/31/19 21:00 06/02/19 09:34 Heparin Sodium (Porcine) SQ 06/30/19 20:59 5,000 units Q12 TOD Administration Sodium Chloride 1,000 mls @ 80 mls/hr 06/02/19 09:15 06/02/19 09:33 Nss 1000ml IV 07/02/19 09:14 80 mls/hr .[id number] TOD Administration Lorazepam 0.5 mg 06/02/19 13:32 06/02/19 13:36 Ativan PO 07/02/19 13:31 0.5 mg Q8 PRN Administration Anxiety Magnesium Oxide 400 mg 06/01/19 09:00 06/02/19 09:33 Mag-Ox PO 07/01/19 08:59 400 mg QAM TOD Administration Metoprolol Succinate 100 mg 05/31/19 21:00 06/01/19 19:16 Toprol Xl PO 06/30/19 20:59 Not Given HS TOD Miscellaneous 1 ea 06/01/19 08:00 06/02/19 15:44 Order Awaiting Action N/A 07/01/19 07:59 Not Given QS TOD Miscellaneous 1 ea 06/01/19 16:00 06/02/19 15:43 Fentanyl Patch Check Placement N/A 07/01/19 15:59 1 ea QS TOD Administration Miscellaneous 1 ea 06/01/19 07:59 06/01/19 08:46 Fentanyl Patch Remove & Waste N/A 07/01/19 07:58 1 ea Q72H TOD Administration Morphine Sulfate 2 mg 05/31/19 20:57 05/31/19 22:43 Morphine Sulfate IV 06/14/19 20:56 2 mg Q3H PRN Administration Moderate Pain (4,5,6) Ondansetron HCl 4 mg 05/31/19 20:57 06/02/19 07:37 Zofran IV 06/30/19 20:56 4 mg Q6H PRN Administration Nausea Pantoprazole Sodium 40 mg 05/31/19 21:00 06/02/19 09:34 Protonix PO 06/30/19 20:59 40 mg BID TOD Administration Ropinirole HCl 0.25 mg 06/01/19 21:00 06/01/19 19:14 Requip PO 07/01/19 20:59 0.25 mg HS TOD Administration Sertraline HCl 50 mg 06/01/19 09:00 06/02/19 09:34 Zoloft PO 07/01/19 08:59 50 mg QAM TOD Administration Simvastatin 20 mg 05/31/19 21:00 06/01/19 19:16 Zocor PO 06/30/19 20:59 20 mg HS TOD Administration Sucralfate 1 gm 06/01/19 12:00 06/02/19 12:21 Carafate PO 07/01/19 00:00 1 gm Q6 TOD Administration Trazodone HCl 50 mg 05/31/19 21:00 06/01/19 20:58 Desyrel PO 06/30/19 20:59 50 mg HS TOD Administration Past Medical History Medical History Pituitary adenoma HTN (hypertension) Acute renal failure superimposed on stage 3 chronic kidney disease Opioid dependence (Chronic) CKD (chronic kidney disease) (Chronic) HLD (hyperlipidemia) (Chronic) Anxiety (Chronic) Chronic lower back pain (Chronic) Intractable low back pain (Chronic) Lumbago (Chronic) Panic attack (Inactive) BPH (benign prostatic hyperplasia) Blind LEFT EYE Deep vein thrombosis RLE - 3 YEARS AGO - CAUSE? - TREATED WITH BLOOD THINNERS. GERD (gastroesophageal reflux disease) Hearing deficit BL MCRAE History of melanoma Hyperlipidemia Hypertension Hyperthyroidism IBS (irritable bowel syndrome) Lumbar herniated disc MULTIPLE Multiple renal cysts REPORTS ONLY HAS 1 FUNCTIONING KIDNEY - FOLLOWS W/ DR. 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 History of esophagogastroduodenoscopy (EGD) 04/20/2019. MAC no issues. History of melanoma excision CHEST - W/ SKIN GRAFTING. (LEFT GROIN DONOR SITE) History of parotidectomy Status post trigger finger release Social History Smoking Status: Former smoker tobacco type: cigarettes Hx Alcohol Use: No Alcohol type: beer alcohol intake frequency: a few times a week Hx Substance Use: No substance use type: does not use Physical Exam Vital Signs Last Vital Signs Temp 37 C 06/02/19 15:49 Pulse 62 06/02/19 15:49 Resp 18 06/02/19 15:49 BP 171/75 H 06/02/19 15:49 Pulse Ox 98 06/02/19 15:49 Testing Laboratory Results 06/02/19 05:54 06/02/19 05:54 Urine Color Yellow 05/31/19 17:35 Urine Appearance Clear (Clear) 05/31/19 17:35 Urine pH >= 9.0 (4.5-7.5) H 05/31/19 17:35 Ur Specific [place] 1.011 (1.000-1.030) 05/31/19 17:35 Urine Protein Negative (Negative) 05/31/19 17:35 Urine Glucose (UA) Negative (Negative) 05/31/19 17:35 Urine Ketones Trace (Negative) H 05/31/19 17:35 Urine Nitrite Negative (Negative) 05/31/19 17:35 Ur Leukocyte Esterase Negative (Negative) 05/31/19 17:35 Electrocardiogram NSR. HR 62. Normal ECG. Chest X-Ray Date: 05/31/19 XR chest 1V portable CLINICAL HISTORY: r chest pain, ruq pain COMPARISON STUDY: Chest radiograph April 09, 2019. FINDINGS: Lung volumes are normal. Lungs are clear. There is no pneumothorax or pleural effusion. Cardiac size is normal. Mediastinal contours are normal. There is no evidence for pulmonary edema. IMPRESSION: No acute cardiopulmonary findings.
[2019-06-02] MEDS: MoRPHine SULFATE 2 MG/ML CARP IV PRN ×2 (17:20→20:27)
[2019-06-02] MEDS: DOXAZosin MESYLATE TAB 2 MG TAB PO SCH (20:31)
[2019-06-02] MEDS: TRAZODONE HCL 50 MG TAB PO SCH (20:32)
[2019-06-02] MEDS: SIMVASTATIN 20 MG TAB PO SCH (20:33)
[2019-06-02] MEDS: METOPROLOL SUCC 50MG EXT REL TAB PO SCH (20:33)
[2019-06-02] MEDS: ROPINIROLE HCL 0.25 MG TABLET PO SCH (20:34)
[2019-06-03] MEDS: SUCRALFATE 1 GM/10 ML UDC PO SCH ×4 (05:39→16:57)
--- NOTE | 2019-06-03 06:30 | History & Physical Bridge Note ---
Date of Service June 03, 2019 History & Physical Bridge Note I have examined the patient, reviewed the History & Physical and in the interval since the performance of the History & Physical I have noted the following changes of clinical significance: no changes noted
[2019-06-03] MEDS ORDERED: cefOXitin 2,000 MG in DEXTROSE 5% 50 ML IV SCH (07:00)
[2019-06-03 07:12] LABS: Hematocrit (blood only) 32.8 % (42-52); Hemoglobin 10.8 g/dL (14.0-18.0); Mean Corpuscular Hemoglobin 29.8 pg (25-34); Mean Corpuscular Hgb Conc 32.9 g/dL (32-36); Mean Corpuscular Volume 90.6 fL (80-100); Mean Platelet Volume 10.7 fL (7.4-10.4); Platelet Count 133 K/uL (130-400); RDW Coefficient of Variation 13.7 % (11.5-14.5); RDW Standard Deviation 45.6 fL (36.4-46.3); Red Blood Count 3.62 M/uL (4.7-6.1); White Blood Count 6.32 K/uL (4.8-10.8)
[2019-06-03 07:40] LABS: BUN Creatinine Ratio 9.1 (10-20); Calcium 8.3 mg/dl (8.5-10.1); Creatinine Clr Calc Pharmacy 48.3 ml/min; Est GFR (African American) 64.6; Est GFR (Non-African American) 55.7; Potassium 4.2 mmol/L (3.5-5.1)
[2019-06-03] MEDS: ONDANSETRON INJ 2 MG/ML 2 ML VIAL IV PRN (08:15)
[2019-06-03] MEDS: CHECK FENTANYL PATCH PLACEMENT SCH ×2 (08:17→16:56)
[2019-06-03] MEDS: HEPARIN SOD 5,000 UNIT/0.5 ML VIAL SQ SCH (08:17)
[2019-06-03] MEDS: SERTRALINE HCL 100 MG TABLET PO SCH (08:18)
[2019-06-03] MEDS: BusPIRone 15 MG TAB PO SCH ×2 (08:18→20:49)
[2019-06-03] MEDS: PANTOprazole 40 MG TAB PO SCH ×2 (08:18→20:49)
[2019-06-03] MEDS: MAGNESIUM OXIDE 400 MG TAB PO SCH (08:18)
[2019-06-03] MEDS ORDERED: fentaNYL citrate 100 MCG/2 ML VIAL ONE (09:00)
[2019-06-03] MEDS ORDERED: MIDAZOLAM HCL 1 MG/ML 2ML VIAL ONE (09:00)
[2019-06-03] MEDS ORDERED: PROPOFOL IV EMULSION 10 MG/ML 20 ML VIAL IV ONE (09:01)
[2019-06-03] MEDS ORDERED: ONDANSETRON INJ 2 MG/ML 2 ML VIAL ONE (09:01)
[2019-06-03] MEDS ORDERED: LIDOCAINE HCL 2% 2 ML VIAL/AMP(20MG/ML) INFIL ONE (09:01)
[2019-06-03] MEDS ORDERED: DEXAMETHASONE SOD INJ 4 MG/ML VIAL ONE (09:01)
[2019-06-03] MEDS ORDERED: NEOSTIGMINE METHYLSULFATE 5 MG/5 ML SYR ONE (09:01)
[2019-06-03] MEDS ORDERED: ROCURONIUM BROMIDE 10 MG/ML 5 ML VIAL ONE (09:01)
[2019-06-03] MEDS ORDERED: GLYCOPYRROLATE 0.2 MG/ML VIAL ONE (09:01)
[2019-06-03] MEDS ORDERED: BUPIVACAINE 0.5 % 5 MG/1 ML MPF 30ML VIAL ONE (09:10)
[2019-06-03] MEDS ORDERED: CONRAY 60% 50 ML VIAL ONE (09:10)
[2019-06-03] MEDS ORDERED: PROMETHAZINE HCL 12.5 MG in SODIUM CHLORIDE 0.9% 50 ML IV PRN ×2 (09:13→11:25)
[2019-06-03] MEDS ORDERED: HYDROmorphone INJ 2 MG/ML SYR/VIAL IV PRN (09:13)
[2019-06-03] MEDS ORDERED: ONDANSETRON INJ 2 MG/ML 2 ML VIAL IV PRN ×2 (09:13→11:25)
[2019-06-03] MEDS ORDERED: LABETALOL HCL IV 5 MG/ML 20ML IV PRN (09:13)
[2019-06-03] MEDS ORDERED: ATROPINE SULFATE 0.1 MG/ML 10ML SYR IV PRN (09:13)
--- NOTE | 2019-06-03 10:18 | Operative Report ---
Post Operative Report Pre & Post Diagnosis Operation Date: 06/03/19 08:50 Pre-Op Diagnosis: GALLBLADER DYSFUNCTION Post-Op Diagnosis: GALLBLADER DYSFUNCTION Procedure Operation Date: 06/03/19 08:50 Actual Procedures p Laparoscopic Cholecystectomy - Kai Schmidt MD, FACS Surgeon Kai Schmidt MD, FACS Palletiser Operator Candida Palma Estimated Blood Loss 5 Findings Consistent with Post-Op Diagnosis Specimens gallbladder Description of Procedure see dictation I attest to the content of the Intraoperative Record and any orders documented therein. Any exceptions are noted below.
[2019-06-03] MEDS ORDERED: ACETAMINOPHEN 1,000 MG/100 ML VIAL IV ONE (10:26)
[2019-06-03] MEDS ORDERED: ePHEDrine sulfate 50 MG/ML AMP ONE (10:41)
--- NOTE | 2019-06-03 10:58 | Anesthesiology Progress Note ---
Date of Service June 03, 2019 Anesthesia Post Procedure Vital Signs Vital Signs: Temp Pulse Pulse Pulse Resp BP Pulse Ox 06/03/19 10:50 47 L 18 135/58 L 100 06/03/19 10:40 49 L 18 164/67 H 99 06/03/19 10:31 36.8 C 66 18 159/88 H 95 06/03/19 09:10 36.7 C 49 L 18 175/77 H 98 06/03/19 07:35 36.5 C 51 L 18 182/78 H 95 06/02/19 23:50 177/76 H 06/02/19 23:18 37.1 C 66 18 193/75 H 96 06/02/19 20:36 68 155/72 H 95 06/02/19 15:49 37 C 62 18 171/75 H 98 06/02/19 11:20 36.6 C 58 L 18 149/72 H 96 Pain Intensity Leg: Pain Intensity: 10 Transfer of Care Handoff Completed per policy Notes Mental Status: alert / awake / arousable Patient Amnestic to Procedure: Yes Nausea / Vomiting: adequately controlled Pain: adequately controlled Airway Patency, RR, SpO2: stable & adequate BP & HR: stable & adequate Hydration State: stable & adequate Anesthetic Complications: no major complications apparent
--- NOTE | 2019-06-03 11:21 | Operative Report ---
DATE OF OPERATION: 06/03/2019 NAME OF OPERATION: Laparoscopic cholecystectomy and lysis of adhesions. PREOPERATIVE DIAGNOSIS: Biliary dyskinesia. POSTOPERATIVE DIAGNOSES: Biliary dyskinesia with chronic cholecystitis. STAFF SURGEON: Kai Schmidt MD COMMUNITY SERVICE WORKER: Damian Palma PA-C ANESTHESIA: General. DESCRIPTION OF PROCEDURE: The patient was brought in the operating room and placed on the operating table in supine position. His abdomen was prepped and draped in usual fashion. Pneumatic stockings, orogastric tube were placed. All incisions were anesthetized using 0.5% plain Marcaine. Incision was made above the umbilicus, carrying dissection down to the fascia, placing a Veress needle producing pneumoperitoneum. An 11 mm port was placed this level and then under visualization, three 5 mm ports were placed, 1 cephalad and 2 laterally. The omentum was up over the liver and adherent over the liver and gallbladder. The omentum was slowly taken down by sharp lysis of adhesions, grasping the gallbladder, aspirating of bile. There were adhesions down over the gallbladder. These were taken down. Dissection carried out the gladys hepatis, identifying the cystic duct which was clipped and transected, then the cystic artery identified, clipped and transected and the gallbladder dissected away from the liver bed in the usual fashion. After appropriate hemostasis and irrigation, the gallbladder was placed in an Endobag and removed through the umbilical site. All ports were removed. The umbilical fascia closed using interrupted 0 PDS suture. Skin reapproximated using 4-0 Monocryl and Dermabond. The patient was transferred to recovery room in stable condition. My electrician's assistant helped with prepping, draping, removal of the gallbladder and closure of the wound. I attest to the content of the Intraoperative Record and any orders documented therein. Any exception s are noted below.
[2019-06-03] MEDS ORDERED: IBUPROFEN 600 MG TAB PO PRN (11:25)
[2019-06-03] MEDS ORDERED: PROMETHAZINE HCL 25 MG in SODIUM CHLORIDE 0.9% 50 ML IV PRN (11:25)
[2019-06-03] MEDS: SODIUM CHLORIDE 0.9% 1000ML 1,000 ML IV SCH ×2 (11:26→11:52)
--- NOTE | 2019-06-03 17:46 | Hospitalist Progress Note ---
Date of Service June 03, 2019 Assessment & Plan (1) Acute renal failure superimposed on stage 3 chronic kidney disease: Creat usually 1.3 range with GFR 50. Creat elevated at 1.9 on admission, down to 1.2 for two days, responded well to fluids Suspect due to decreased po intake resulting in pre-renal azotemia exacerbated by using Bumex continue to Hold Bumex today, consider resuming tomorrow based on his oral intake cut fluids to 50cc/hr Hold Meloxicam and lisinopril for now. (2) Dysfunctional gallbladder: Symptomatic intermittently, had some pain with eating as well as some intermittent vomiting EF on Hida scan 12% perhaps it represented chronic cholecystitis s/p lap cholecystectomy on 06/[address] Schmidt diet per surgery doing well post op (3) Chronic lower back pain: Continue Fentanyl patch was possibly on Hydrocodone but he denies taking will definitely check prescribers database prior to discharge reviewed prior films, MRI lumbar spine 2017 showed mild disease at best Dilaudid 0.5mg IV PRN, not needing it currently (4) Abdominal pain, RUQ: [place] due to dysfunctional gallbladder. intermittent, pain associated with eating s/p lap alistair (5) Anxiety: Continue home meds Ativan PRN may be leading to exaggerating symptoms, some drug seeking behavior (6) HLD (hyperlipidemia): Continue simvastatin. (7) HTN (hypertension): Continue metoprolol Add prn hydralazine (8) Pituitary adenoma: Follows with Dr. Reece, endocrine locally Plans to be evaluated in [place] for surgical treatment will help him reschedule appt Subjective patient seen this afternoon after cholecystectomy this morning doing well, minimal pain, no leg pain, no nausea he tolerated some clear liquids discussed with Dr. Schmidt, had some adhesions around gall bladder so his gall bladder may have been a little more inflamed than thought reviewed labs today, CBC and BMP normal, Cr stable Review of Systems Review of Systems: All systems reviewed & are unremarkable except as noted in HPI & below Respiratory: no cough and no dyspnea Cardiovascular: no chest pain and no edema Gastrointestinal: + abdominal pain (mild, incisional); no nausea, no vomiting, no constipation and no diarrhea/loose stools Physical Exam Constitutional: WD/WN, vitals as above Eyes: PERRL, conjunctivae normal, anicteric sclerae ENMT: external ear and nose normal, oropharynx normal Neck: trachea midline, no thyromegaly Respiratory: normal respiratory effort, lungs clear to auscultation Cardiovascular: RRR, no murmur, no edema Gastrointestinal (Abdomen): normal bowel sounds, soft, nontender, no hepatosplenomegaly (mild tenderness at incision sites) Musculoskeletal: no cyanosis or clubbing, extremities motor strength 5/5 Skin: no rashes, warm and dry Neurologic: patellar DTR's 2+ bilat, sensation intact and PERRL, EOMI, accom modation nl, no face palsy, no dysarthria Psychiatric: Orientation: alert and oriented x 3 Affect: + anxious affect and + irritable affect Lymphatic: no cervical or axillary lymphadenopathy Results & Data Vital Signs (Past 12 Hours) Vital Signs Temp Pulse Pulse Pulse Resp BP Pulse Ox 06/03/19 15:28 36.7 C 53 L 17 159/67 H 95 06/03/19 14:20 36.6 C 56 L 18 163/68 H 98 06/03/19 13:20 36.5 C 50 L 16 136/68 96 06/03/19 12:20 36.4 C L 44 L 18 143/65 H 96 06/03/19 11:50 36.8 C 53 L 18 152/74 H 100 06/03/19 11:20 36.8 C 50 L 18 130/62 96 06/03/19 11:10 36.6 C 59 L 18 135/61 100 06/03/19 11:00 48 L 18 137/63 100 06/03/19 10:50 47 L 18 135/58 L 100 06/03/19 10:40 49 L 18 164/67 H 99 06/03/19 10:31 36.8 C 66 18 159/88 H 95 06/03/19 09:10 36.7 C 49 L 18 175/77 H 98 06/03/19 07:35 36.5 C 51 L 18 182/78 H 95 Laboratory Results Laboratory Results - last 24 hr 06/03/19 06/03/19 06:58 06:58 WBC 6.32 RBC 3.62 L Hgb 10.8 L Hct 32.8 L MCV 90.6 MCH 29.8 MCHC 32.9 RDW Std Deviation 45.6 RDW Coeff of Mehnaz 13.7 Plt Count 133 MPV 10.7 H Sodium 144 Potassium 4.2 Chloride 112 H Carbon Dioxide 30 Anion Gap 2.0 L BUN 11 Creatinine 1.24 Est Cr Clr Drug Dosing 48.3 Est GFR ( Amer) 64.6 Est GFR (Non-Af Amer) 55.7 BUN/Creatinine Ratio 9.1 L Glucose 84 Calcium 8.3 L Medications Administered Current Inpatient Medications Acetaminophen (Tylenol) 650 mg PO Q4H PRN PRN Reason: mild pain or fever Stop: 06/30/19 20:56 Last Admin: 06/01/19 09:12 Dose: 650 mg Documented by: Buspirone HCl (Buspar) 30 mg PO BID [facility] Stop: 06/30/19 20:59 Last Admin: 06/03/19 08:18 Dose: 30 mg Documented by: Doxazosin Mesylate (Cardura) 8 mg PO HS [facility] Stop: 06/30/19 20:59 Last Admin: 06/02/19 20:31 Dose: 8 mg Documented by: Fentanyl (Duragesic) 50 mcg TD Q72H [facility] Stop: 06/15/19 07:59 Last Admin: 06/01/19 08:45 Dose: 50 mcg Documented by: Heparin Sodium (Porcine) (Heparin Sodium (Porcine)) 5,000 units SQ Q12 TOD Stop: 07/04/19 08:59 Sodium Chloride (Nss 1000ml) 1,000 mls @ 80 mls/hr IV .[id number] [facility] Stop: 07/02/19 09:14 Last Admin: 06/03/19 11:26 Dose: 80 mls/hr Documented by: Promethazine HCl 12.5 mg/ (Sodium Chloride) 50.5 mls @ 204 mls/hr IV Q6H PRN PRN Reason: Nausea And Vomiting Stop: 07/03/19 11:24 Sodium Chloride (Nss 1000ml) 1,000 mls @ 50 mls/hr IV .Q20H TOD Stop: 07/03/19 11:24 Last Admin: 06/03/19 11:52 Dose: 50 mls/hr Documented by: Promethazine HCl 25 mg/ Sodium (Chloride) 51 mls @ 204 mls/hr IV Q6H PRN PRN Reason: Nausea And Vomiting Stop: 07/03/19 11:24 Ibuprofen (Motrin) 600 mg PO Q6H PRN PRN Reason: Pain Stop: 07/03/19 11:24 Lorazepam (Ativan) 0.5 mg PO Q8 PRN PRN Reason: Anxiety Stop: 07/02/19 13:31 Last Admin: 06/02/19 22:19 Dose: 0.5 mg Documented by: Magnesium Oxide (Mag-Ox) 400 mg PO QAM [facility] Stop: 07/01/19 08:59 Last Admin: 06/03/19 08:18 Dose: 400 mg Documented by: Metoprolol Succinate (Toprol Xl) 100 mg PO HS [facility] Stop: 06/30/19 20:59 Last Admin: 06/02/19 20:33 Dose: 100 mg Documented by: Miscellaneous (Order Awaiting Action) 1 ea N/A QS [facility] Stop: 07/01/19 07:59 Last Admin: 06/03/19 16:57 Dose: Not Given Documented by: Vanecellaneous (Fentanyl Patch Check Placement) 1 ea N/A QS [facility] Stop: 07/01/19 15:59 Last Admin: 06/03/19 16:56 Dose: 1 ea Documented by: Vanecellaneous (Fentanyl Patch Remove & Waste) 1 ea N/A Q72H TOD Stop: 07/01/19 07:58 Last Admin: 06/01/19 08:46 Dose: 1 ea Documented by: Morphine Sulfate (Morphine Sulfate) 2 mg IV Q3H PRN PRN Reason: Moderate Pain (4,5,6) Stop: 06/14/19 20:56 Last Admin: 06/02/19 20:27 Dose: 2 mg Documented by: Ondansetron HCl (Zofran) 4 mg IV Q6H PRN PRN Reason: Nausea Stop: 06/30/19 20:56 Last Admin: 06/03/19 08:15 Dose: 4 mg Documented by: Ondansetron HCl (Zofran) 4 mg IV 4XDQ4H PRN PRN Reason: Nausea Stop: 07/03/19 11:24 Pantoprazole Sodium (Protonix) 40 mg PO BID [facility] Stop: 06/30/19 20:59 Last Admin: 06/03/19 08:18 Dose: 40 mg Documented by: Ropinirole HCl (Requip) 0.25 mg PO [facility] Stop: 07/01/19 20:59 Last Admin: 06/02/19 20:34 Dose: 0.25 mg Documented by: Sertraline HCl (Zoloft) 50 mg PO QAM [facility] Stop: 07/01/19 08:59 Last Admin: 06/03/19 08:18 Dose: 50 mg Documented by: Simvastatin (Zocor) 20 mg PO HS [facility] Stop: 06/30/19 20:59 Last Admin: 06/02/19 20:33 Dose: 20 mg Documented by: Sucralfate (Carafate) 1 gm PO Q6 [facility] Stop: 07/01/19 00:00 Last Admin: 06/03/19 16:57 Dose: 1 gm Documented by: Trazodone HCl (Desyrel) 50 mg PO [facility] Stop: 06/30/19 20:59 Last Admin: 06/02/19 20:32 Dose: 50 mg Documented by: PG Care Time/CCT Total # of Minutes Spent Total Time Spent with Patient: Total time spent is greater than 50% in coordination of care (as documented) at patient's floor/unit and/or counseling patient:
[2019-06-03] MEDS: MoRPHine SULFATE 2 MG/ML CARP IV PRN ×2 (19:07→22:44)
[2019-06-03] MEDS ORDERED: COUGH DROP (SUGAR FREE) LOZ 24 LOZ/1 BOX BUCCAL PRN (19:34)
[2019-06-03] MEDS: DOXAZosin MESYLATE TAB 2 MG TAB PO SCH (20:49)
[2019-06-03] MEDS: TRAZODONE HCL 50 MG TAB PO SCH (20:49)
[2019-06-03] MEDS: SIMVASTATIN 20 MG TAB PO SCH (20:50)
[2019-06-03] MEDS: ROPINIROLE HCL 0.25 MG TABLET PO SCH (20:50)
[2019-06-03] MEDS: METOPROLOL SUCC 50MG EXT REL TAB PO SCH (20:50)
[2019-06-03] MEDS: LORazepam 0.5 MG TAB PO PRN (20:56)
[2019-06-04] MEDS: SUCRALFATE 1 GM/10 ML UDC PO SCH ×3 (00:42→12:56)
[2019-06-04] MEDS: CHECK FENTANYL PATCH PLACEMENT SCH ×2 (00:42→08:45)
[2019-06-04] MEDS: MoRPHine SULFATE 2 MG/ML CARP IV PRN ×2 (01:48→07:39)
[2019-06-04] MEDS: SODIUM CHLORIDE 0.9% 1000ML 1,000 ML IV SCH (05:27)
--- NOTE | 2019-06-04 06:18 | Surgery Progress Note ---
Date of Service June 04, 2019 Assessment & Plan (1) Chronic cholecystitis: s/p lap alistair yesterday- evidence of adhesions and chronic chgs awake, alert, calm this am- wants to go home ok for d/c from surg standpoint will give script for [place] f/u surg office 1-2 weeks Results & Data Vital Signs (Past 12 Hours) Vital Signs Temp Pulse Resp BP Pulse Ox 06/04/19 04:02 170/74 H 06/04/19 03:17 37.3 C 54 L 16 179/75 H 93 06/03/19 23:28 37.2 C 54 L 16 150/64 H 93 06/03/19 19:58 36.6 C 68 18 148/67 H 94 PG Care Time/CCT Total # of Minutes Spent Total Time Spent with Patient: Total time spent is greater than 50% in coordination of care (as documented) at patient's floor/unit and/or counseling patient:
[2019-06-04] MEDS: SERTRALINE HCL 100 MG TABLET PO SCH (08:40)
[2019-06-04] MEDS: MAGNESIUM OXIDE 400 MG TAB PO SCH (08:40)
[2019-06-04] MEDS: PANTOprazole 40 MG TAB PO SCH (08:41)
[2019-06-04] MEDS: BusPIRone 15 MG TAB PO SCH (08:41)
[2019-06-04] MEDS: fentaNYL 50 MCG/HR TDSY TD SCH (08:45)
[2019-06-04] MEDS ORDERED: HEPARIN SOD 5,000 UNIT/0.5 ML VIAL SQ SCH (09:00)
--- NOTE | 2019-06-04 10:05 | Anesthesiology Progress Note ---
Date of Service June 04, 2019 Anesthesia Post Procedure Vital Signs Vital Signs: Temp Pulse Pulse Pulse Resp BP Pulse Ox 06/04/19 07:24 36.9 C 52 L 14 156/72 H 95 06/04/19 04:02 170/74 H 06/04/19 03:17 37.3 C 54 L 16 179/75 H 93 06/03/19 23:28 37.2 C 54 L 16 150/64 H 93 06/03/19 19:58 36.6 C 68 18 148/67 H 94 06/03/19 15:28 36.7 C 53 L 17 159/67 H 95 06/03/19 14:20 36.6 C 56 L 18 163/68 H 98 06/03/19 13:20 36.5 C 50 L 16 136/68 96 06/03/19 12:20 36.4 C L 44 L 18 143/65 H 96 06/03/19 11:50 36.8 C 53 L 18 152/74 H 100 06/03/19 11:20 36.8 C 50 L 18 130/62 96 06/03/19 11:10 36.6 C 59 L 18 135/61 100 06/03/19 11:00 48 L 18 137/63 100 06/03/19 10:50 47 L 18 135/58 L 100 06/03/19 10:40 49 L 18 164/67 H 99 06/03/19 10:31 36.8 C 66 18 159/88 H 95 Notes Mental Status: alert / awake / arousable and participated in evaluation Nausea / Vomiting: adequately controlled Pain: adequately controlled Airway Patency, RR, SpO2: stable & adequate BP & HR: stable & adequate Hydration State: stable & adequate
[2019-06-04] MEDS ORDERED: HYDROCODONE/ACETAMOPHEN 5/325MG TAB PO PRN ×2 (11:42→14:14)
--- NOTE | 2019-06-04 14:32 | Discharge Summary ---
Date of Service June 04, 2019 Admission HPI Per Admitting Provider 78 y/o male presented to the ED with (as per patient) right leg pain to which his reports that he has had that his entire life. In actuality, she encouraged him to go to the ED due to RUQ pain and decreased po intake over a month time frame. When he does eat he complains of pain 9/10. A HIDA scan did show dysfunctional gallbladder with EF of 12%. He is to see Dr. Leal to consider cholecystectomy. reports that patient has lost weight. The lives separately but does help the patient. She reported that the patient asked her to "kill him" because of his symptoms. He was evaluated by psych in the ED and is not felt to be suicidal. Principal Diagnosis Chronic cholecystitis Discharge Exam Constitutional WD/WN, vitals as above Eyes PERRL, conjunctivae normal, anicteric sclerae ENMT external ear and nose normal, oropharynx normal Neck trachea midline, no thyromegaly Respiratory normal respiratory effort, lungs clear to auscultation Cardiovascular RRR, no murmur, no edema Gastrointestinal (Abdomen) normal bowel sounds, soft, nontender, no hepatosplenomegaly (mild tenderness at incision sites) Musculoskeletal no cyanosis or clubbing, extremities motor strength 5/5 Skin no rashes, warm and dry Neurologic patellar DTR's 2+ bilat, sensation intact and PERRL, EOMI, accommodation nl, no face palsy, no dysarthria Psychiatric Orientation: alert and oriented x 3 Affect: + anxious affect Lymphatic no cervical or axillary lymphadenopathy Discharge Data Allergies Allergy/AdvReac Type Severity Reaction Status Date / Time No Known Allergies Allergy Verified 06/06/19 07:24 Consultations 05/31/19 18:57 ED Decision to Admit Stat 05/31/19 20:57 Consult Case Management - Discharge Planning Routine Consult General Surgery Routine Procedures Performed Operation Date: 06/03/19 08:50 Actual Procedures p Laparoscopic Cholecystectomy - Kai Schmidt MD, FACS Ordered Studies 05/31/19 17:20 CT abd pelvis wo con Stat Hospital Course (1) Acute renal failure superimposed on stage 3 chronic kidney disease: Creat usually 1.3 range with GFR 50. Creat elevated at 1.9 on admission, down to 1.2 for two days, responded well to fluids Suspect due to decreased po intake resulting in pre-renal azotemia exacerbated by using Bumex resume Bumex on discharge resume Lisinopril on discharge renal function at baseline for several days after IV hydration (2) Dysfunctional gallbladder: Symptomatic intermittently, had some pain with eating as well as some intermittent vomiting EF on Hida scan 12% likely represented chronic cholecystitis s/p lap cholecystectomy on 06/[address] Schmidt per Dr. Schmidt, there was some inflammation and adhesions around the gall bladder diet per surgery doing well post op d/c to home and follow up with Dr. Schmidt [place] prescribed for pain control (3) Chronic lower back pain: Continue Fentanyl patch was possibly on Hydrocodone but he denies taking reviewed prior films, MRI lumbar spine 2017 showed mild disease at best Dilaudid 0.5mg IV PRN, did not need it for two days can follow up with Dr. Tran for further evaluation of low back pain (4) Abdominal pain, RUQ: [place] due to dysfunctional gallbladder. intermittent, pain associated with eating s/p lap alistair severe pain is resolved, now only has some surgical site pain (5) Anxiety: Continue home meds Ativan PRN may be leading to exaggerating symptoms, some drug seeking behavior (6) HLD (hyperlipidemia): Continue simvastatin. (7) HTN (hypertension): Continue metoprolol Add prn hydralazine (8) Pituitary adenoma: Follows with Dr. Reece, endocrine locally Plans to be evaluated in [place] for surgical treatment will help him reschedule appt Total Time Total Time Spent Total Time Spent (In Minutes): 31 minutes Total Time Includes: Examination of the Patient, Discharge Planning, Medication Reconciliation and Communication With Other Providers (Dr. Schmidt) Discharge Plan Discharge Items Patient Disposition: Home - Self-Care Reason For Visit: CELI,GALLBLADER DYSFUNCTION Discharge Diagnosis: Chronic cholecystitis, dyskinesia s/p lap cholecystectomy Condition on Discharge: Good Goals: improve strength pain control with [place] improve diet Activity: As commented below Lifting: No more than 10 pounds Bathing Comment: OK to shower Driving/Machine Use: Resume 3 days after discharge Non-emergency contact: Surgeon Call non-emergency contact if: you have any medication questions, you have a fever, your temperature is above 101.5 and your wound has increased redness Follow-up/Referrals: Kai Schmidt MD, FACS [Physician] - (In 2 weeks) Hraish Tran III, MD [Primary Care Provider] - Chris Dunn MD [Consulting Physician] - 06/17/19 1:45 pm (Please, follow up at [facility] with Dr. Dunn on June 17 at 1:45 pm. *If you need to change this appointment, call the office at [phone].) Diet: Regular Addtl Attending Provider Instructions: see below for Dr. Schmidt's recommendations Addtl Admin Prog Coord Provider Instructions: SPECIAL CARE INSTRUCTIONS: * Cover incisions and change daily for comfort/drainage. * Empty drain 2-3 times per day and record. * May use ibuprofen for pain as tolerated. * Expect some swelling and bruising. Call your doctor if: * Temperature above 101 degrees * Pain not relieved by pain medicine ordered * There is increased drainage or redness from any incision * You have any unanswered questions or concerns [phone]. FOLLOW UP VISIT: If not already scheduled, please call the office for a follow-up visit. OFFICE PHONE NUMBER: Dr. Schmidt Office Pending Studies at Discharge: No Stand-Alone Forms: My [facility] Intelligent Apps (mytaxi), Opioid Pain Management Medications and DC Order Prescriptions: New hydrocodone-acetaminophen [[place]] 5-325 mg tablet 1 - 2 tab PO Q4H PRN (Reason: pain, initial therapy) Qty: 15 RF: 0 Continued aspirin 81 mg tablet,delayed release (DR/EC) 81 mg PO QAM Qty: 30 RF: 0 bumetanide 1 mg tablet 1 mg PO QAM Qty: 60 RF: 5 calcium carbonate-vitamin D3 [Calcium 600 + D(3)] 600 mg(1,500mg) -200 unit tablet 1 tab PO BID Qty: 30 RF: 0 docusate sodium 100 mg tablet 200 mg PO QAM Qty: 60 RF: 0 dutasteride-tamsulosin [Yancy] 0.5-0.4 mg capsule, ER multiphase 24 hr 1 cap PO HS Qty: 90 RF: 3 lisinopril 40 mg tablet 40 mg PO QAM Qty: 90 RF: 3 magnesium 250 mg tablet 250 mg PO QAM Qty: 30 RF: 0 simvastatin 20 mg tablet 20 mg PO HS Qty: 90 RF: 3 meloxicam [Mobic] 15 mg tablet 15 mg PO QAM Qty: 90 RF: 3 metoprolol succinate [Toprol XL] 50 mg tablet extended release 24 hr 100 mg PO HS Qty: 180 RF: 3 fentanyl 50 mcg/hr Patch 72 Hour 1 patch TRANSDERMAL Q72H RF: 0 buspirone 15 mg tablet 30 mg PO BID RF: 0 sertraline 100 mg tablet 50 mg PO QAM RF: 0 doxazosin [Cardura] 2 mg tablet 8 mg PO HS RF: 0 sucralfate 1 gram tablet 1 g PO Q6H RF: 0 trazodone 50 mg tablet 50 mg PO HS RF: 0 pantoprazole 40 mg Tablet,Delayed Release (Dr/Ec) 40 mg PO BID RF: 0 multivitamin [Multiple Vitamins] Tablet 1 tab PO DAILY RF: 0 Discharge Orders: Discharge Order (Routine); Ordered 06/04/19 Ordered By: Donald Sommers Admission Data Admit Date/Time: 05/31/19 19:43 Attending Provider: Donald Sommers Admit Provider: Thomas Goff Primary Care Provider: Harish Tran III Other Providers: Mandie Farr David M. Other Interventions: Discharge Summary Assessment (RN) Last Done: 06/04/19 14:56 DC Date/Time DO NOT enter until pt leaves facility: 06/04/19 15:47
== END 2019-06-04 15:47 | disposition home or self-care (01) | DRG 418 ==
LOC: ED 15:08 → 2E 19:43 → SUATTDRO 19:43 → 2E 20:43 → 3N 06-02 09:17

== ENCOUNTER 2019-10-10 08:53 | Inpatient (IN) ==
[2019-10-10] MEDS ORDERED: DiphenhydrAMINE HCL 50 MG/ML VIAL IV STA (09:25)
[2019-10-10] MEDS ORDERED: DEXAMETHASONE **PF** INJ 10 MG/ML VIAL IV ONE (09:25)
[2019-10-10] MEDS ORDERED: PROCHLORPERAZINE 5 MG/ML 2 ML VIAL IV STA (09:25)
[2019-10-10] MEDS ORDERED: HYDROCORTISONE SOD SUCCINATE 100 MG/2 ML VIAL IV STA (09:28)
[2019-10-10] MEDS ORDERED: SODIUM CHLORIDE 0.9% 500 ML IV SCH (09:30)
[2019-10-10 09:33] LABS: Basophils # (auto) 0.03 K/uL (0-0.2); Basophils % (auto) 0.2 %; Eosinophils # (auto) 0.39 K/uL (0-0.5); Hematocrit (blood only) 42.7 % (42-52); Hemoglobin 13.6 g/dL (14.0-18.0); Immature Granulocytes # (auto) 0.04 K/uL (0.00-0.02); Immature Granulocytes % (auto) 0.3 %; Lymphocytes # (auto) 4.58 K/uL (1.2-3.4); Lymphocytes % (auto) 35.3 %; Mean Corpuscular Hemoglobin 30.4 pg (25-34); Mean Corpuscular Hgb Conc 31.9 g/dL (32-36); Mean Corpuscular Volume 95.3 fL (80-100); Mean Platelet Volume 10.8 fL (7.4-10.4); Monocytes # (auto) 0.34 K/uL (0.11-0.59); Monocytes % (auto) 2.6 %; Neutrophils % (auto) 58.6 %; Platelet Count 161 K/uL (130-400); RDW Coefficient of Variation 14.9 % (11.5-14.5); RDW Standard Deviation 51.7 fL (36.4-46.3); Red Blood Count 4.48 M/uL (4.7-6.1); White Blood Count 12.98 K/uL (4.8-10.8)
[2019-10-10 09:40] LABS: Alanine Aminotransferase 23 U/L (12-78); Albumin Level 3.7 gm/dl (3.4-5.0); Aspartate Aminotransferase 25 U/L (15-37); BUN Creatinine Ratio 24.3 (10-20); Blood Urea Nitrogen 30 mg/dl (7-18); Carbon Dioxide 32 mmol/L (21-32); Chloride 111 mmol/L (98-107); Creatinine Clr Calc Pharmacy 51.1 ml/min; Est GFR (African American) 63.5; Est GFR (Non-African American) 54.8; Glucose 86 mg/dl (70-99); Potassium 3.4 mmol/L (3.5-5.1); Sodium 146 mmol/L (136-145)
[2019-10-10] MEDS ORDERED: DEXAMETHASONE **PF** INJ 10 MG/ML VIAL ONE (09:44)
[2019-10-10 09:50] LABS: Albumin Globulin Ratio 1.2 (0.9-2); Alkaline Phosphatase 80 U/L (45-117); Bilirubin,Total 0.4 mg/dl (0.2-1); Globulin 3.1 gm/dl (2.5-4.0); Thyroid Stimulating Hormone < 0.005 uIu/ml (0.300-4.500); Total Protein 6.8 gm/dl (6.4-8.2)
--- NOTE | 2019-10-10 09:57 | CT Scan Report ---
CT SCAN OF THE BRAIN WITHOUT IV CONTRAST CLINICAL HISTORY: Headache. COMPARISON STUDY: CT of the brain dated 02/14/2019. MRI of the brain dated 04/23/2019. TECHNIQUE: Unenhanced axial CT scan of the brain is performed from the vertex to the skull base. A do se lowering technique was utilized adhering to the principles of ALARA. The patient was scanned twice due to motion artifact. CT DOSE: 1151.75 mGy.cm FINDINGS: Brain parenchyma: There are age-related involutional changes noting mild subcortical and periventric ular microangiopathic change. There is no hemorrhage, mass effect, or evidence of acute territorial i schemia by CT criteria. Smith-white matter differentiation is preserved. No extra-axial fluid collecti on is seen. Ventricles, sulci, cisterns: Prominent secondary to involutional change. Intracranial vasculature: There is mild atherosclerotic calcification of the cavernous carotid arteri es. Calvarium: There is evidence of previous left frontal craniotomy. No destructive calvarial lesion is identified. Sinuses and mastoids: A 1.7 cm retention cyst is partially visualized in the right maxillary antrum. A 1.1 cm retention cyst is noted in the right sphenoid sinus. The remaining visualized paranasal sinu ses are clear. The mastoid air cells are well pneumatized. Orbits: The bony orbits are grossly intact. IMPRESSION: There is no hemorrhage, mass effect, or evidence of acute territorial ischemia by CT crit hetal. ACT 112: Negative or not required by law. Electronically signed by: Iraj Mandujano M.D. 10/10/2019 9:56 AM
[2019-10-10 10:06] LABS: T4 Free Thyroxine 1.33 ng/dl (0.8-1.6)
[2019-10-10] MEDS ORDERED: METOPROLOL TARTRATE 1 MG/ML VIAL IV STA (10:13)
[2019-10-10] MEDS ORDERED: lisinopriL 40 MG TAB PO ONE (10:14)
[2019-10-10] MEDS ORDERED: HYDROmorphone INJ 0.5 MG/0.5 ML SYR IV STA ×2 (10:31→14:50)
--- NOTE | 2019-10-10 11:20 | XRay Report ---
SINGLE VIEW CHEST CLINICAL HISTORY: Hypoxia. FINDINGS: An AP, portable, upright chest radiograph is compared to study dated 06/08/2019. The examina tion is degraded by portable technique and patient rotation. The heart is top normal for projection n oting atherosclerotic calcification of the thoracic aorta. There is dense bibasilar airspace consolid ation, left greater than right. Trace pleural effusions are suspected. No pneumothorax is seen. The s keletal structures are osteopenic. The bony thorax is grossly intact. IMPRESSION: 1. There is dense bibasilar airspace consolidation, left greater than right. Correlate clinically for evidence of pneumonia/aspiration pneumonitis. Radiographic follow-up to resolution is recommended. 2. Suspect trace pleural effusions. ACT 112: Negative or not required by law. Electronically signed by: Iraj Mandujano M.D. 10/10/2019 11:19 AM
[2019-10-10] MEDS ORDERED: PIPERACILL/TAZOBAC CONSULT ACTIVE PRN (12:11)
[2019-10-10] MEDS ORDERED: PIPERACILLIN/TAZOBACTAM 4.5 GM/120 ML BAG IV ONE (12:11)
--- NOTE | 2019-10-10 13:07 | Emergency Department Note ---
Entered by Ana Nolan acting as a scribe for History of Present Illness General Chief complaint: Headache Stated complaint: SEVERE HEADACHE Time Seen by Provider: 10/10/19 09:04 Source: patient Mode of arrival: ambulatory Limitations: no limitations History of Present Illness Onset (ago): hour(s) greater than 10 Location: head Radiation: non-radiation Pain Consistency: + constant Maximum Pain Intensity: 10 Current Pain Intensity: 10 Relieved By: + none Exacerbated By: + none Associated symptoms: + nausea/vomiting; no chest pain and no shortness of breath Treatments prior to arrival: none The patient is a 79 year old male who presents to the ED with complaints of a headache that worsened last night. He states the pain was located behind his right eye but is now all over. He rates his pain as a 10/10 in severity. He did vomit once last night and states he is still nauseous. He denies hitting his head or any recent falls. He denies any chest pain or shortness of breath. He states he was started on hydrocortisone a few months ago and has experienced intermittent headaches since starting the new medication. Home Medications Home Medications Medication Instructions Recorded Confirmed Type aspirin 81 mg tablet,delayed 81 mg PO QAM #30 tab 02/23/19 10/10/19 Rx release calcium carbonate 600 mg (1,500 1 tab PO BID #30 tab 02/23/19 10/10/19 Rx mg)-vitamin D3 200 unit tablet magnesium 250 mg tablet 250 mg PO QAM #30 tab 02/23/19 10/10/19 Rx metoprolol succinate 50 mg 100 mg PO HS #180 tab 05/07/19 10/10/19 Rx tablet,extended release 24 hr doxazosin [Cardura] 8 mg PO HS 05/26/19 10/10/19 History multivitamin [Multiple Vitamins] 1 tab PO DAILY 05/27/19 10/10/19 History dicyclomine 20 mg tablet 20 mg PO TID PRN 30 Days #90 tab 07/13/19 10/10/19 Rx sertraline 100 mg tablet 200 mg PO DAILY tab 07/29/19 10/10/19 History testosterone 20.25 mg/1.25 gram 2 pump TOP DAILY #1 btl 08/24/19 10/10/19 Rx (1.62 %) transdermal gel pump dutasteride 0.5 mg-tamsulosin ER 1 cap PO HS #90 cap 10/06/19 10/10/19 Rx 0.4 mg capsule ext.release 24hr mphas buspirone 10 mg PO BID 10/10/19 10/10/19 History docusate sodium [Colace] 200 mg PO DAILY 10/10/19 10/10/19 History gabapentin 300 mg PO BID 10/10/19 10/10/19 History lisinopril 40 mg PO DAILY 10/10/19 10/10/19 History meloxicam 15 mg PO HS 10/10/19 10/10/19 History simvastatin 20 mg PO HS 10/10/19 10/10/19 History trazodone 150 mg PO DAILY 10/10/19 10/10/19 History Allergies Allergy/AdvReac Type Severity Reaction Status Date / Time No Known Allergies Allergy Verified 10/10/19 10:22 Past Med/Surg History Medical History Acute renal failure superimposed on stage 3 chronic kidney disease Anemia (Chronic) Anxiety (Chronic) BPH (benign prostatic hyperplasia) Chronic kidney disease, stage II (mild) (Chronic) Chronic lower back pain (Chronic) CKD (chronic kidney disease) (Chronic) Deep vein thrombosis RLE - 3 YEARS AGO - CAUSE? - TREATED WITH BLOOD THINNERS. GERD (gastroesophageal reflux disease) Hearing deficit BL [facility] History of melanoma HLD (hyperlipidemia) (Chronic) HTN (hypertension) (Chronic) Hyperlipidemia Hypertension Hyperthyroidism IBS (irritable bowel syndrome) Intractable low back pain (Chronic) Lumbago (Chronic) Lumbar herniated disc MULTIPLE Multiple renal cysts REPORTS ONLY HAS 1 FUNCTIONING KIDNEY - FOLLOWS W/ DR. 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 History of esophagogastroduodenoscopy (EGD) 04/20/2019. MAC no issues. History of melanoma excision CHEST - W/ SKIN GRAFTING. (LEFT GROIN DONOR SITE) History of parotidectomy History of skin graft (Chronic) for malignant melanoma Hx laparoscopic cholecystectomy (06/03/19) Laparoscopic Cholecystectomy Dr. Schmidt 9-18-19 Status post trigger finger release Family History Sister Family hx of colon cancer Father Tobacco use Coronary heart disease Mother Diverticulosis of intestine Sister Ovarian cancer Colon cancer Grandfather Cancer Aunt Cancer Uncle Cancer Grandmother (Maternal) Cancer Other No significant family history Social History Preferred Language: Indonesian Communication Ability: Effective Delivery Associate Required: No Beliefs That Will Affect Care: None Current Living Situation: Spouse Feels Safe at Home: Yes Smoking Status: Former smoker Tobacco Type: cigarettes ; Second Hand Exposure: No ; Hx Alcohol Use: No Hx Substance Use: No Review of Systems See HPI for pertinent positives & negatives. and A total of 10 systems reviewed and were otherwise negative Physical Exam Vital Signs Vital Signs - 24 hr 10/10/19 08:56 10/10/19 10:00 10/10/19 10:09 Temperature 36.8 C Temperature Source Oral Pulse Rate 69 Pulse Rate [Apical] 79 73 Pulse Rhythm [Apical] Regular Regular Pulse Strength [Apical] Normal Normal Respiratory Rate 22 24 20 Respiratory Effort / Characteristics Non-Labored Non-Labored Non-Labored Respiratory Depth Normal Normal Normal Blood Pressure 100/66 Blood Pressure [Left Arm] 251/130 H 237/92 H Blood Pressure Mean 77 Blood Pressure Mean [Left Arm] 170 140 Blood Pressure Position Sitting Blood Pressure Position [Left Arm] Lying Lying Pulse Oximetry 89 L 86 L 93 Oxygen Delivery Method Room Air Room Air Nasal Cannula Oxygen Flow Rate 2 Sepsis Recent Fever Within 48 Hours No Sepsis New/Unexplained Change in Mental Status No Sepsis Action Taken by Nursing No Action Required 10/10/19 11:16 10/10/19 11:33 10/10/19 12:33 Temperature Temperature Source Pulse Rate Pulse Rate [Apical] 68 66 71 Pulse Rhythm [Apical] Regular Regular Regular Pulse Strength [Apical] Normal Normal Normal Respiratory Rate 20 18 18 Respiratory Effort / Characteristics Spontaneous Non-Labored Respiratory Depth Normal Normal Blood Pressure Blood Pressure [Left Arm] 173/83 H 147/69 H 144/72 H Blood Pressure Mean Blood Pressure Mean [Left Arm] 113 95 96 Blood Pressure Position Blood Pressure Position [Left Arm] Lying Lying Pulse Oximetry 91 93 95 Oxygen Delivery Method Nasal Cannula Nasal Cannula Nasal Cannula Oxygen Flow Rate 3.5 3.3 3 Sepsis Recent Fever Within 48 Hours Sepsis New/Unexplained Change in Mental Status Sepsis Action Taken by Nursing Vital signs reviewed. Patient noted to be slightly hypoxic. General: Anxious-appearing 79 year old male, sitting up at the bedside, occasional stuttering and tremors of the upper extremities, in no significant distress. HEENT: No scleral icterus, PERRLA, neck supple. Atraumatic. Cardiovascular: Regular rate and rhythm, no extra sounds. Pulmonary: Clear to auscultation bilaterally, normal work of breathing. Abdomen: Soft, nontender, nondistended, positive bowel sounds. Musculoskeletal: Atraumatic, no peripheral edema. Neurologic: Patient awake alert and oriented x 3, full strength in all 4 ex tremities. Cranial nerves 2 through 12 grossly intact. No meningeal signs. Patient is otherwise neurologically intact. Skin: Warm, dry, no rash Course Course 0907: The patient was evaluated in room B11 and a complete history and physical were performed. 1226: I reevaluated the patient. He is resting comfortably. I discussed my recommendation he remain in the hospital for further evaluation and management and he is agreeable with the plan. 1247: [facility] the [facility] The [facility] will be further evaluated. Consultations Consultation #1: I discussed the patients case with Dr. Amaya, [facility]. The patient will be further evaluated. Time: 12:47 Administered Medications Albuterol (Duoneb) 3 ml NEB Q4R TOD Stop: 11/09/19 17:44 Last Admin: 10/11/19 11:26 Dose: 3 ml Documented by: [id number] Admin: 10/11/19 07:00 Dose: 3 ml Documented by: [id number] Admin: 10/11/19 03:13 Dose: 3 ml Documented by: [id number] Admin: 10/10/19 23:08 Dose: 3 ml Documented by: [id number] Admin: 10/10/19 19:14 Dose: 3 ml Documented by: [id number] Admin: 10/10/19 19:11 Dose: Not Given Documented by: [id number] Buspirone HCl (Buspar) 10 mg PO BID TOD Stop: 11/09/19 20:59 Last Admin: 10/11/19 08:43 Dose: 10 mg Documented by: [id number] Admin: 10/10/19 20:44 Dose: 10 mg Documented by: [id number] Docusate Sodium (Colace) 200 mg PO DAILY [facility] Stop: 11/10/19 08:59 Last Admin: 10/11/19 08:43 Dose: 200 mg Documented by: [id number] Doxazosin Mesylate (Cardura) 8 mg PO HS [facility] Stop: 11/09/19 20:59 Last Admin: 10/10/19 20:44 Dose: 8 mg Documented by: [id number] Gabapentin (Neurontin) 300 mg PO BID [facility] Stop: 11/09/19 20:59 Last Admin: 10/11/19 08:44 Dose: 300 mg Documented by: [id number] Admin: 10/10/19 20:43 Dose: 300 mg Documented by: [id number] Gadobutrol (Gadavist 30ml) 8 ml IV ONCE PRN PRN Reason: Interaction Checking Stop: 10/14/19 17:13 Last Admin: 10/10/19 17:14 Dose: 8 ml Documented by: [id number] Hydromorphone HCl (Dilaudid) 0.5 mg IV Q2H PRN PRN Reason: Pain Stop: 10/24/19 17:44 Last Admin: 10/11/19 00:15 Dose: 0.5 mg Documented by: [id number] Piperacillin Sod/Tazobactam (Sod 3.375 gm/ Dextrose) 115 mls @ 28.75 mls/hr IV Q8H [facility]; Protocol Stop: 10/17/19 17:59 Last Admin: 10/11/19 10:09 Dose: 28.8 mls/hr Documented by: [id number] Infusion: 10/11/19 06:46 Dose: 0 mls/hr Documented by: [id number] Admin: 10/11/19 02:10 Dose: 28.8 mls/hr Documented by: [id number] Infusion: 10/10/19 22:45 Dose: 0 mls/hr Documented by: [id number] Admin: 10/10/19 17:57 Dose: 28.8 mls/hr Documented by: [id number] Lisinopril (Zestril) 40 mg PO DAILY [facility] Stop: 11/10/19 08:59 Last Admin: 10/11/19 08:43 Dose: 40 mg Documented by: [id number] Magnesium Oxide (Mag-Ox) 400 mg PO QAM [facility] Stop: 11/10/19 08:59 Last Admin: 10/11/19 08:43 Dose: 400 mg Documented by: [id number] Meloxicam (Mobic) 15 mg PO [facility] Stop: 11/09/19 20:59 Last Admin: 10/10/19 20:45 Dose: 15 mg Documented by: [id number] Metoprolol Succinate (Toprol Xl) 100 mg PO [facility] Stop: 11/09/19 20:59 Last Admin: 10/10/19 20:45 Dose: 100 mg Documented by: [id number] Miscellaneous (Order Awaiting Action) 1 ea N/A QS [facility] Stop: 11/10/19 00:00 Last Admin: 10/11/19 08:44 Dose: Not Given Documented by: [id number] Admin: 10/10/19 23:45 Dose: Not Given Documented by: [id number] Miscellaneous (Order Awaiting Action) 1 ea N/A QS [facility] Stop: 11/10/19 00:00 Last Admin: 10/11/19 08:44 Dose: Not Given Documented by: [id number] Admin: 10/10/19 23:45 Dose: Not Given Documented by: [id number] Multivitamins (Multivitamin Tab) 1 tab PO DAILY [facility] Stop: 11/10/19 08:59 Last Admin: 10/11/19 08:43 Dose: 1 tab Documented by: [id number] Multivitamins/Minerals (Caltrate Plus) 1 tab PO BID [facility] Stop: 11/09/19 20:59 Last Admin: 10/11/19 08:43 Dose: 1 tab Documented by: [id number] Admin: 10/10/19 20:43 Dose: 1 tab Documented by: [id number] Sertraline HCl (Zoloft) 200 mg PO DAILY [facility] Stop: 11/10/19 08:59 Last Admin: 10/11/19 08:43 Dose: 200 mg Documented by: [id number] Simvastatin (Zocor) 20 mg PO [facility] Stop: 11/09/19 20:59 Last Admin: 10/10/19 20:44 Dose: 20 mg Documented by: [id number] Sodium Chloride (Sodium Chlor 7% Neb Solution) 4 ml NEB BIDR [facility] Stop: 11/09/19 18:59 Last Admin: 10/11/19 07:00 Dose: 4 ml Documented by: [id number] Admin: 10/10/19 19:12 Dose: 4 ml Documented by: [id number] Tamsulosin HCl (Flomax) 0.4 mg PO [facility] Stop: 11/09/19 20:59 Last Admin: 10/10/19 20:45 Dose: 0.4 mg Documented by: [id number] Trazodone HCl (Desyrel) 150 mg PO DAILY TOD Stop: 11/09/19 17:44 Last Admin: 10/11/19 08:43 Dose: 150 mg Documented by: [id number] Admin: 10/10/19 20:42 Dose: 150 mg Documented by: [id number] Discontinued Medications Dexamethasone Sodium Phosphate (Decadron Pf) 10 mg IV NOW ONE Stop: 10/10/19 09:26 Last Admin: 10/10/19 10:31 Dose: Not Given Documented by: [id number] Dexamethasone Sodium Phosphate (Decadron Pf) Confirm Administered Dose 10 mg .ROUTE .STK-MED ONE Stop: 10/10/19 09:45 Last Admin: 10/10/19 10:31 Dose: Not Given Documented by: [id number] Diphenhydramine HCl (Benadryl) 25 mg IV NOW STA Stop: 10/10/19 09:26 Last Admin: 10/10/19 09:54 Dose: 25 mg Documented by: [id number] Hydrocortisone Sodium Succinate (Solu-Cortef) 100 mg IV NOW STA Stop: 10/10/19 09:29 Last Admin: 10/10/19 09:59 Dose: 100 mg Documented by: [id number] Hydromorphone HCl (Dilaudid) 0.5 mg IV NOW STA Stop: 10/10/19 10:32 Last Admin: 10/10/19 10:39 Dose: 0.5 mg Documented by: [id number] Hydromorphone HCl (Dilaudid) 0.5 mg IV NOW STA Stop: 10/10/19 14:51 Last Admin: 10/10/19 14:57 Dose: 0.5 mg Documented by: [id number] Sodium Chloride (Nss) 500 mls @ 999 mls/hr IV .Q31M TOD Stop: 10/10/19 10:00 Last Infusion: 10/10/19 11:19 Dose: 0 mls/hr Documented by: [id number] Admin: 10/10/19 09:59 Dose: 999 mls/hr Documented by: [id number] Piperacillin Sod/Tazobactam Sod (Zosyn) 4.5 gm in 120 mls @ 240 mls/hr IV NOW ONE Stop: 10/10/19 12:40 Last Infusion: 10/10/19 13:22 Dose: 0 mls/hr Documented by: [id number] Admin: 10/10/19 12:41 Dose: 240 mls/hr Documented by: [id number] Metronidazole (Flagyl) 500 mg in 100 mls @ 100 mls/hr IV Q8H TOD Stop: 10/17/19 17:59 Last Infusion: 10/11/19 10:09 Dose: 0 mls/hr Documented by: [id number] Admin: 10/11/19 09:00 Dose: 100 mls/hr Documented by: [id number] Infusion: 10/11/19 02:10 Dose: 0 mls/hr Documented by: [id number] Admin: 10/11/19 01:08 Dose: 100 mls/hr Documented by: [id number] Infusion: 10/10/19 20:55 Dose: 0 mls/hr Documented by: [id number] Admin: 10/10/19 18:37 Dose: 100 mls/hr Documented by: [id number] Potassium Chloride/Sodium Chloride (Normal Saline W/20 Meq Kcl) 20 meq in 1,000 mls @ 80 mls/hr IV .[id number] TOD Stop: 10/11/19 07:29 Last Infusion: 10/11/19 08:57 Dose: 0 mls/hr Documented by: [id number] Admin: 10/10/19 19:43 Dose: 80 mls/hr Documented by: [id number] Methylprednisolone 40 mg/ (Syringe) 0.64 mls @ 1.5 mls/min IV Q12H TOD Stop: 11/09/19 19:59 Last Admin: 10/11/19 08:43 Dose: 1.5 mls/min Documented by: [id number] Admin: 10/10/19 20:42 Dose: 1.5 mls/min Documented by: [id number] Lisinopril (Zestril) 40 mg PO ONE ONE Stop: 10/10/19 10:15 Last Admin: 10/10/19 10:34 Dose: 40 mg Documented by: [id number] Lorazepam (Ativan) Confirm Administered Dose 2 mg .ROUTE .STK-MED ONE Stop: 10/10/19 15:26 Last Admin: 10/10/19 15:28 Dose: 1 mg Documented by: [id number] Metoprolol Tartrate (Lopressor) 5 mg IV NOW STA Stop: 10/10/19 10:14 Last Admin: 10/10/19 10:32 Dose: 5 mg Documented by: [id number] Potassium Chloride (Klor-Con M10) 40 meq PO NOW STA Stop: 10/10/19 18:40 Last Admin: 10/10/19 20:43 Dose: 40 meq Documented by: [id number] Prochlorperazine (Compazine) 10 mg IV NOW STA Stop: 10/10/19 09:26 Last Admin: 10/10/19 09:57 Dose: 10 mg Documented by: [id number] Medical Decision Making Differential Diagnosis Differential Diagnosis includes but is not limited to headache, tension headache, cluster headache, migraine, subarachnoid hemorrhage, meningitis, mass, central venous thrombus, concussion, trauma and epidural/subdural hemorrhage. Medical Records Attestation: I reviewed the patient's medical records. Home Medications Current Medication List: was personally reviewed by me Laboratory Data Attestation: I reviewed the patient's lab results. Result diagrams: 10/11/19 06:38 10/11/19 06:38 Lab Results 10/10/19 10/10/19 Range/Units 09:09 09:09 WBC 12.98 H (4.8-10.8) K/uL RBC 4.48 L (4.7-6.1) M/uL Hgb 13.6 L (14.0-18.0) g/dL Hct 42.7 (42-52) % MCV 95.3 (80-100) fL MCH 30.4 (25-34) pg MCHC 31.9 L (32-36) g/dL RDW Std Deviation 51.7 H (36.4-46.3) fL RDW Coeff of Mehnaz 14.9 H (11.5-14.5) % Plt Count 161 (130-400) K/uL MPV 10.8 H (7.4-10.4) fL Immature Gran % (Auto) 0.3 % Neut % (Auto) 58.6 % Lymph % (Auto) 35.3 % [place] % (Auto) 2.6 % Eos % (Auto) 3.0 % Baso % (Auto) 0.2 % Immature Gran # (Auto) 0.04 H (0.00-0.02) K/uL Neut # (Auto) 7.60 H (1.4-6.5) K/uL Lymph # (Auto) 4.58 H (1.2-3.4) K/uL [place] # (Auto) 0.34 (0.11-0.59) K/uL Eos # (Auto) 0.39 (0-0.5) K/uL Baso # (Auto) 0.03 (0-0.2) K/uL Sodium 146 H (136-145) mmol/L Potassium 3.4 L (3.5-5.1) mmol/L Chloride 111 H (98-107) mmol/L Carbon Dioxide 32 (21-32) mmol/L Anion Gap 3.0 (3-11) BUN 30 H (7-18) mg/dl Creatinine 1.25 (0.6-1.4) mg/dl Est Cr Clr Drug Dosing 51.1 ml/min Est GFR ( Amer) 63.5 Est GFR (Non-Af Amer) 54.8 BUN/Creatinine Ratio 24.3 H (10-20) Glucose 86 (70-99) mg/dl Calcium 9.0 (8.5-10.1) mg/dl Total Bilirubin 0.4 (0.2-1) mg/dl AST 25 (15-37) U/L ALT 23 (12-78) U/L Alkaline Phosphatase 80 (45-117) U/L Total Protein 6.8 (6.4-8.2) gm/dl Albumin 3.7 (3.4-5.0) gm/dl Globulin 3.1 (2.5-4.0) gm/dl Albumin/Globulin Ratio 1.2 (0.9-2) TSH < 0.005 L (0.300-4.500) uIu/ml Free T4 1.33 (0.8-1.6) ng/dl Imaging Data Radiologist's Impression: Radiology results as stated below per my review and the radiologist's interpretation: CT SCAN OF THE BRAIN WITHOUT IV CONTRAST CLINICAL HISTORY: Headache. COMPARISON STUDY: CT of the brain dated 02/14/2019. MRI of the brain dated 04/23. TECHNIQUE: Unenhanced axial CT scan of the brain is performed from the vertex to the skull base. A dose lowering technique was utilized adhering to the principles of ALARA. The patient was scanned twice due to motion artifact. CT DOSE: 1151.75 mGy.cm FINDINGS: Brain parenchyma: There are age-related involutional changes noting mild subcortical and periventricular microangiopathic change. There is no hemorrhage, mass effect, or evidence of acute territorial ischemia by CT criteria. Smith- white matter differentiation is preserved. No extra-axial fluid collection is seen. Ventricles, sulci, cisterns: Prominent secondary to involutional change. Intracranial vasculature: There is mild atherosclerotic calcification of the cavernous carotid arteries. Calvarium: There is evidence of previous left frontal craniotomy. No destructive calvarial lesion is identified. Sinuses and mastoids: A 1.7 cm retention cyst is partially visualized in the right maxillary antrum. A 1.1 cm retention cyst is noted in the right sphenoid sinus. The remaining visualized paranasal sinuses are clear. The mastoid air cells are well pneumatized. Orbits: The bony orbits are grossly intact. IMPRESSION: There is no hemorrhage, mass effect, or evidence of acute territorial ischemia by CT criteria. ACT 112: Negative or not required by law. Electronically signed by: Iraj Mandujano M.D. 10/10/2019 9:56 AM SINGLE VIEW CHEST CLINICAL HISTORY: Hypoxia. FINDINGS: An AP, portable, upright chest radiograph is compared to study dated 06/08/2019. The examination is degraded by portable technique and patient rotation. The heart is top normal for projection noting atherosclerotic calcification of the thoracic aorta. There is dense bibasilar airspace consolidation, left greater than right. Trace pleural effusions are suspected. No pneumothorax is seen. The skeletal structures are osteopenic. The bony thorax is grossly intact. IMPRESSION: 1. There is dense bibasilar airspace consolidation, left greater than right. Correlate clinically for evidence of pneumonia/aspiration pneumonitis. Radiographic follow-up to resolution is recommended. 2. Suspect trace pleural effusions. ACT 112: Negative or not required by law. Electronically signed by: Iraj Mandujano M.D. 10/10/2019 11:19 AM Blood Pressure Blood Pressure Findings: Elevated blood pressure Blood Pressure Disposition: further management by hospitalist DARRIN Aponte This patient was evaluated and appeared to be in no significant distress. IV access was obtained and laboratory work was drawn. Patient was hydrated with normal saline solution, given IV Benadryl 25 mg, IV Compazine 10 mg and hydrocodone 100 mg IV. Patient is steroid dependent. CT scan of the head was negative for acute process. Patient is noted to be mildly hypoxic and chest x- ray was performed. It appears that there are dense bibasilar opacities, left greater than right. There is concern for aspiration pneumonitis. Given the patient's vomiting earlier today, this is a strong possibility. Blood cultures were obtained and the patient was given Zosyn 4.5 g IV. Patient is currently resting comfortably on nasal cannula oxygen. He was informed of the findings and stated his headache had much improved. Case was discussed with the hospitalist service who will evaluate the patient for further management. Resident Physician Supervision Note: I did perform an independent evaluation and examination of this patient as laura cribed. I also saw this patient in conjunction with the resident, Dr. Paula Shane, and guided management for the patient. Impression & Plan Headache, Hypertension, Hypoxia, Aspiration into airway Discharge Plan Visit Data *Final* Discharge Date/Time: 10/10/19 15:15 Chief Complaint: Headache Stated Complaint: SEVERE HEADACHE ED Provider: Seda Orr Discharge Problem: Headache, Hypertension, Hypoxia, Aspiration into airway Patient Disposition: Admitted As Inpatient Discharge Instructions Interventions: ED Discharge Assessment Last Done: 10/10/19 15:15 The scribe's documentation has been prepared under my direction and personally reviewed by me in its entirety. I confirm that the note above accurately reflects all work, treatment, procedures, and medical decision making performed by me.
[2019-10-10] MEDS ORDERED: LORazepam 2 MG/4 ML VIAL ONE (15:25)
--- NOTE | 2019-10-10 15:30 | History & Physical Report ---
Date of Service October 10, 2019 Assessment & Plan (1) Headache: Likely due to pituitary tumor. We will obtain MRI of the brain. Compared with the previous studies. Pain relief with Dilaudid 0.5 mg IV every 2 hours as needed for pain and headache Continue supplemental oxygen because it appears that helps. Patient is not on oxygen at home. DVT prophylaxis SCDs and teds Antinausea medication Full code Present on Admission?: Yes (2) Pituitary tumor: As the above Present on Admission?: Yes (3) Aspiration into airway: Patient reports having issues with swallowing Placed referral to speech and swallowing therapy Possibly aspiration pneumonia seen on the chest x-ray versus pneumonitis. Started Zosyn in the ER. Continue Zosyn with metronidazole empirically to cover for anaerobes. Sputum and blood cultures pending. DuoNebs every 4 hours Solu-Medrol 40 mg IV twice daily to help with cough and inflammation. Taper fran n. Robitussin 10 mils every 6 hours as needed for cough Hypertonic saline as expectorant Continue supplemental oxygen Present on Admission?: Yes (4) Acute respiratory failure: As the above Present on Admission?: Yes (5) Hypertension: Blood pressure slightly elevated in the emergency room. Patient did not have his medication this morning. Continue aspirin 81 mg p.o. every morning, Lisinopril 40 mg p.o. daily, Metoprolol succinate 100 mg p.o. nightly. Present on Admission?: Yes (6) ACTH deficiency: Continue testosterone 20.20 mg / 125 g transdermal gel pump daily Present on Admission?: Yes (7) HLD (hyperlipidemia): Lipid panel pending continue simvastatin 20 mg p.o. nightly Present on Admission?: Yes (8) Aspiration pneumonia: As discussed above Present on Admission?: Yes (9) Anxiety: Continue trazodone 150 mg p.o. daily, sertraline 200 mg p.o. daily buspirone 10 mg p.o. twice daily. Present on Admission?: Yes (10) Chronic low back pain: Continue calcium carbonate 600 mg / 1500 mg vitamin D 200 p.o. twice daily, gabapentin 300 mg p.o. twice daily, meloxicam hold since patient is on Toradol. Continue trazodone 150 mg p.o. daily. Present on Admission?: Yes (11) Prostatic hypertrophy: Continue doxazosin 8 mg p.o. nightly, dutasteride 0.5 mg/tamsulosin 0.4 mg extended capsule p.o. nightly. Present on Admission?: Yes History of Present Illness Chief Complaint: Severe headache, persistent cough and wheezing Primary Care Provider: Harish Tran MD The patient is a 79 years old male with past medical history of hyperlipidemia, anxiety, lower back pain, hypertension, opiate dependence, pituitary tumor , blindness of left eye who presented to the emergency room with a complaint of a severe headache since last night. Patient reports that he could not sleep and that headache kept him awake. Patient states that his headache started behind his right ear, and improved with pain medicine in the emergency room and being placed on oxygen. The patient reports when he came in the headache was 10 of 10 in severity. Patient reports vomiting 1 time last night and he still feels nauseated. Patient denies any incidents such as falling or hitting his head. Patient reports cough for several days. He said he has trouble swallowing and sometimes food stays in his esophagus. Patient states that he is on hyd rocortisone for several months as per his dairy scientist and he noted that these headaches are associated with hydrocortisone. Patient denies fever, chills, chest pain, shortness of breath, abdominal pain, frequency, urgency, syncope or near syncope. Per Dr. Reece dairy scientist notes patient had multiple MRI studies the most recently 2008 which were significant for pituitary tumor that occupies all of the sella and the optic chiasm. Patient is blind to his left eye. Patient saw Dr. June about surgery in 2019 he recommended proceeding to preserve vision in the right eye with waiting for your a reasonable option. The patient decided to wait. In 1979 patient had diagnostic craniotomy and diagnosis was not made. 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 Patient had MRI repeatedly every year 2005 through 2008. Patient was previously on methimazole which is stopped resulting in more normal free T4 and T3 level. Patient symptoms at that time were that he was tired, lightheaded not motivated and difficult to get out of bed in the morning. All this resolved after bolus patient placed on physiological doses of hydrocortisone per Dr. Reece. Labs are reviewed: Sodium 146, potassium 3.4, chloride 111, carbon dioxide 32, BUN 30, creatinine 1.25, GFR 54.8 calcium 9,Total bili 0.4, AST 25, ALT 23, alkaline phosphatase 80 Albumin 3.7, globulin 3.1, TSH 0.005 ,free T4 1.33. Urine all clear. A decision was made to admit patient for severe headache most likely related to his meningioma, pneumonia versus pneumonitis most likely aspirational to PCU on telemetry. Allergies Allergy/AdvReac Type Severity Reaction Status Date / Time No Known Allergies Allergy Verified 10/10/19 10:22 Home Medications Home Medications Medication Instructions Recorded Confirmed Type aspirin 81 mg tablet,delayed 81 mg PO QAM #30 tab 02/23/19 10/10/19 Rx release calcium carbonate 600 mg (1,500 1 tab PO BID #30 tab 02/23/19 10/10/19 Rx mg)-vitamin D3 200 unit tablet magnesium 250 mg tablet 250 mg PO QAM #30 tab 02/23/19 10/10/19 Rx metoprolol succinate 50 mg 100 mg PO HS #180 tab 05/07/19 10/10/19 Rx tablet,extended release 24 hr doxazosin [Cardura] 8 mg PO HS 05/26/19 10/10/19 History multivitamin [Multiple Vitamins] 1 tab PO DAILY 05/27/19 10/10/19 History dicyclomine 20 mg tablet 20 mg PO TID PRN 30 Days #90 tab 07/13/19 10/10/19 Rx sertraline 100 mg tablet 200 mg PO DAILY tab 07/29/19 10/10/19 History testosterone 20.25 mg/1.25 gram 2 pump TOP DAILY #1 btl 08/24/19 10/10/19 Rx (1.62 %) transdermal gel pump dutasteride 0.5 mg-tamsulosin ER 1 cap PO HS #90 cap 10/06/19 10/10/19 Rx 0.4 mg capsule ext.release 24hr mphas buspirone 10 mg PO BID 10/10/19 10/10/19 History docusate sodium [Colace] 200 mg PO DAILY 10/10/19 10/10/19 History gabapentin 300 mg PO BID 10/10/19 10/10/19 History lisinopril 40 mg PO DAILY 10/10/19 10/10/19 History meloxicam 15 mg PO HS 10/10/19 10/10/19 History simvastatin 20 mg PO HS 01/25/20 01/25/20 History trazodone 150 mg PO DAILY 10/10/19 10/10/19 History Past Med/Surg History Medical History Acute renal failure superimposed on stage 3 chronic kidney disease Anemia (Chronic) Anxiety (Chronic) BPH (benign prostatic hyperplasia) Chronic kidney disease, stage II (mild) (Chronic) Chronic lower back pain (Chronic) CKD (chronic kidney disease) (Chronic) Deep vein thrombosis RLE - 3 YEARS AGO - CAUSE? - TREATED WITH BLOOD THINNERS. GERD (gastroesophageal reflux disease) Hearing deficit BL MCRAE History of melanoma HLD (hyperlipidemia) (Chronic) HTN (hypertension) (Chronic) Hyperlipidemia Hypertension Hyperthyroidism IBS (irritable bowel syndrome) Intractable low back pain (Chronic) Lumbago (Chronic) Lumbar herniated disc MULTIPLE Multiple renal cysts REPORTS ONLY HAS 1 FUNCTIONING KIDNEY - FOLLOWS W/ DR. 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 History of esophagogastroduodenoscopy (EGD) 04/20/2019. MAC no issues. History of melanoma excision CHEST - W/ SKIN GRAFTING. (LEFT GROIN DONOR SITE) History of parotidectomy History of skin graft (Chronic) for malignant melanoma Hx laparoscopic cholecystectomy (06/03/19) Laparoscopic Cholecystectomy Dr. Schmidt 06-03-19 Status post trigger finger release Family History Sister Family hx of colon cancer Father Tobacco use Coronary heart disease Mother Diverticulosis of intestine Sister Ovarian cancer Colon cancer Grandfather Cancer Aunt Cancer Uncle Cancer Grandmother (Maternal) Cancer Other No significant family history Social History Preferred Language: French Communication Ability: Effective Medical Director Of Hospice Required: No Beliefs That Will Affect Care: None Current Living Situation: Spouse Other Information That Helps Us Care for You: No Feels Safe at Home: Yes Safety Concerns: Feels Safe At This Time Smoking Status: Former smoker Tobacco Type: cigarettes ; Do You Dip or Chew Tobacco: No ; Second Hand Exposure: No ; Tobacco Cessation Education Requested by Patient: No Hx Alcohol Use: No Hx Substance Use: No Review of Systems Review of Systems: All systems reviewed & are unremarkable except as noted in HPI & below Physical Exam Constitutional: WD/WN, vitals as above well developed Eyes: PERRL, conjunctivae normal, anicteric sclerae Blind in left eye ENMT: external ear and nose normal, oropharynx normal Neck: trachea midline, no thyromegaly Respiratory: + respiratory distress, + labored breathing, + uses accessory muscles and + cough Auscultation: + crackles and + wheezes Cardiovascular: RRR, no murmur, no edema Vessels: dorsalis pedis pulses present Gastrointestinal (Abdomen): normal bowel sounds, soft, nontender, no hepatosplenomegaly Musculoskeletal: no cyanosis or clubbing, extremities motor strength 5/5 Skin: no rashes, warm and dry Neurologic: patellar DTR's 2+ bilat, sensation intact Psychiatric: A+Ox3, euthymic affect Lymphatic: no cervical or axillary lymphadenopathy Results & Data Vital Signs (Past 12 Hours) Vital Signs Temp Pulse Pulse Resp BP BP Pulse Ox 10/10/19 14:08 36.5 C 68 18 161/85 H 92 10/10/19 12:33 71 18 144/72 H 95 10/10/19 11:33 66 18 147/69 H 93 10/10/19 11:16 68 20 173/83 H 91 10/10/19 10:09 73 20 237/92 H 93 10/10/19 10:00 79 24 251/130 H 86 L 10/10/19 08:56 36.8 C 69 22 100/66 89 L Code Status & VTE Plan Code Status Full code VTE Prophylaxis Plan VTE Prophylaxis will be ordered: Yes PG Care Time/CCT Total # of Minutes Spent Total Time Spent with Patient: Total time spent is greater than 50% in coordination of care (as documented) at patient's floor/unit and/or counseling patient: Coding Level of Care Code 80238 Initial Inpt Care Lvl 3 Diagnoses Headache R51 Pituitary tumor D49.7 Aspiration into airway T17.908A Acute respiratory failure J96.00 Hypertension I10 ACTH deficiency E23.6 HLD (hyperlipidemia) E78.5 Aspiration pneumonia J69.0 Anxiety F41.9 Chronic low back pain M54.5; G89.29 Prostatic hypertrophy N40.0
[2019-10-10] MEDS ORDERED: GADOBUTROL 30ML VIAL IV PRN (17:14)
[2019-10-10] MEDS ORDERED: PIPERACILLIN/TAZOBACTAM 3.375 GM in DEXTROSE 5% 100 ML IV SCH (17:45)
[2019-10-10] MEDS ORDERED: HYDROmorphone INJ 0.5 MG/0.5 ML SYR IV PRN (17:45)
[2019-10-10] MEDS ORDERED: ALUMINUM/MAGNESIUM SUSP 30 ML UDC PO PRN (17:45)
[2019-10-10] MEDS ORDERED: GUAIFENESIN/CODEINE 200MG/20MG 10ML UDC PO PRN (17:45)
[2019-10-10] MEDS ORDERED: MAGNESIUM HYDROXIDE SUSP 30 ML UDC PO PRN (17:45)
[2019-10-10] MEDS ORDERED: DICYCLOMINE HCL 20 MG TAB PO PRN (17:45)
[2019-10-10] MEDS ORDERED: POLYETHYLENE (MIRALAX) 17 GM PACK PO PRN (17:45)
[2019-10-10] MEDS ORDERED: POTASSIUM CHLORIDE 20 MEQ TABCR PO STA (17:45)
--- NOTE | 2019-10-10 17:49 | Magnetic Resonance Report ---
MRI OF THE BRAIN COMBO; MRI OF THE PITUITARY GLAND COMBO CLINICAL HISTORY: Pituitary tumor. Headache. COMPARISON STUDY: MRI of pituitary gland dated 04/23/2019. TECHNIQUE: MRI of the brain was performed utilizing various T1 and T2-weighted sequences in the axial , sagittal, and coronal planes. Contrast-enhanced sequences were acquired following the administratio n of a cc of Gadavist. Additional high-resolution imaging of the pituitary gland is performed both pr e and post contrast. Dynamic coronal sequences were obtained. The examination is degraded by motion a rtifact. FINDINGS: Brain parenchyma: There is age-related involutional change noting mild subcortical and periventricula r microangiopathic disease. There is no hemorrhage or mass effect. There is no restricted diffusion t o suggest acute ischemia. No enhancing mass lesion is identified on the postcontrast images. Smith-whi te matter differentiation is preserved. No extra-axial fluid collection is seen. The cerebellar tonsi ls are normal in configuration. Ventricles, sulci, and cisterns: Prominent secondary to involutional change. Pituitary and sella: There is unchanged appearance of a 1.7 x 1.3 x 1.4 cm lobulated mass lesion in t he sella turcica as compared to 04/23/2019. This is T1 hypointense, T2 slightly hyperintense, and shows homogeneous postcontrast enhancement. This abuts but does not displace the optic chiasm. Intracranial vasculature: Normal flow voids are maintained at the skull base. Orbits: The bony orbits are grossly intact. Orbital contents are normal in appearance. Sinuses and mastoids: There is a 1.8 cm retention cyst in the right maxillary antrum. Small retention cysts are also seen in the right sphenoid sinus. The paranasal sinuses are otherwise clear. The mast oid air cells are well pneumatized. Calvarium: There is evidence of previous left frontal craniotomy. No destructive calvarial lesion is identified. Cervical cord: Partially visualized cervical spinal cord is normal in morphology and signal intensity . IMPRESSION: 1. There is no acute intracranial abnormality. 2. There is unchanged appearance of a homogeneously enhancing mass lesion in the sella turcica as com pared to 04/23/2019. Any differences in reported size are related to measurement technique. 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 ACT 112: Negative or not required by law. Electronically signed by: Iraj Mandujano M.D. 10/10/2019 5:47 PM
[2019-10-10] MEDS: PIPERACILLIN/TAZOBACTAM 3.375 GM in DEXTROSE 5% 100 ML IV SCH (17:57)
[2019-10-10] MEDS ORDERED: Nursing to Pharmacy Communication ONE (18:33)
[2019-10-10] MEDS: metroNIDAZOLE 500 MG/100 ML BAG IV SCH (18:37)
[2019-10-10] MEDS ORDERED: POTASSIUM CHLORIDE 10 MEQ TABCR PO STA (18:39)
[2019-10-10] MEDS ORDERED: NSS + 20MEQ KCL 20 MEQ/1,000 ML BAG IV SCH (19:00)
[2019-10-10] MEDS: ALBUT/IPRATROP 3MG/0.5MG NEB 3 ML VIAL NEB SCH ×3 (19:11→23:08)
[2019-10-10] MEDS: SODIUM CHLOR 7% 4 ML NEB NEB SCH (19:12)
[2019-10-10] MEDS: methylPREDNISolone 40 MG in SYRINGE 0 ML IV SCH (20:42)
[2019-10-10] MEDS: TRAZODONE HCL 50 MG TAB PO SCH (20:42)
[2019-10-10] MEDS: GABAPENTIN 300 MG CAP PO SCH (20:43)
[2019-10-10] MEDS: CALCIUM 600MG + VIT D 400 IU TAB PO SCH (20:43)
[2019-10-10] MEDS: DOXAZosin MESYLATE TAB 2 MG TAB PO SCH (20:44)
[2019-10-10] MEDS: SIMVASTATIN 20 MG TAB PO SCH (20:44)
[2019-10-10] MEDS: MELOXICAM 7.5 MG TAB PO SCH (20:45)
[2019-10-10] MEDS: TAMSULOSIN HCL 0.4 MG CAP PO SCH (20:45)
[2019-10-10] MEDS: METOPROLOL SUCC 50MG EXT REL TAB PO SCH (20:45)
[2019-10-11] MEDS: metroNIDAZOLE 500 MG/100 ML BAG IV SCH ×2 (01:08→09:00)
[2019-10-11] MEDS: PIPERACILLIN/TAZOBACTAM 3.375 GM in DEXTROSE 5% 100 ML IV SCH ×3 (02:10→17:10)
[2019-10-11] MEDS: ALBUT/IPRATROP 3MG/0.5MG NEB 3 ML VIAL NEB SCH ×6 (03:13→23:23)
[2019-10-11 06:58] LABS: Hematocrit (blood only) 33.7 % (42-52); Mean Corpuscular Hemoglobin 31.3 pg (25-34); Mean Corpuscular Hgb Conc 32.6 g/dL (32-36); Mean Corpuscular Volume 95.7 fL (80-100); Mean Platelet Volume 10.6 fL (7.4-10.4); Platelet Count 117 K/uL (130-400); RDW Coefficient of Variation 15.8 % (11.5-14.5); RDW Standard Deviation 54.5 fL (36.4-46.3); Red Blood Count 3.52 M/uL (4.7-6.1); White Blood Count 17.56 K/uL (4.8-10.8)
[2019-10-11] MEDS: SODIUM CHLOR 7% 4 ML NEB NEB SCH ×2 (07:00→19:43)
[2019-10-11 07:18] LABS: Basophils # (auto) 0.01 K/uL (0-0.2); Basophils % (auto) 0.1 %; Immature Granulocytes # (auto) 0.06 K/uL (0.00-0.02); Immature Granulocytes % (auto) 0.3 %; Lymphocytes # (auto) 0.78 K/uL (1.2-3.4); Lymphocytes % (auto) 4.4 %; Monocytes # (auto) 0.67 K/uL (0.11-0.59); Monocytes % (auto) 3.8 %; Neutrophils # (auto) 16.04 K/uL (1.4-6.5); Neutrophils % (auto) 91.4 %
[2019-10-11 07:41] LABS: Albumin Level 2.6 gm/dl (3.4-5.0); BUN Creatinine Ratio 24.3 (10-20); Bilirubin,Total 0.5 mg/dl (0.2-1); Calcium 8.3 mg/dl (8.5-10.1); Creatinine Clr Calc Pharmacy 46.4 ml/min; Est GFR (African American) 56.4; Est GFR (Non-African American) 48.6; Globulin 2.6 gm/dl (2.5-4.0); Potassium 5.1 mmol/L (3.5-5.1); Total Protein 5.2 gm/dl (6.4-8.2)
[2019-10-11] MEDS: SERTRALINE HCL 100 MG TABLET PO SCH (08:43)
[2019-10-11] MEDS: TRAZODONE HCL 50 MG TAB PO SCH (08:43)
[2019-10-11] MEDS: MAGNESIUM OXIDE 400 MG TAB PO SCH (08:43)
[2019-10-11] MEDS: lisinopriL 40 MG TAB PO SCH (08:43)
[2019-10-11] MEDS: methylPREDNISolone 40 MG in SYRINGE 0 ML IV SCH (08:43)
[2019-10-11] MEDS: CALCIUM 600MG + VIT D 400 IU TAB PO SCH ×2 (08:43→20:24)
[2019-10-11] MEDS: MULTIVITAMIN TAB PO SCH (08:43)
[2019-10-11] MEDS: DOCUSATE SODIUM 100 MG CAP PO SCH (08:43)
[2019-10-11] MEDS: GABAPENTIN 300 MG CAP PO SCH ×2 (08:44→20:16)
--- NOTE | 2019-10-11 16:40 | Hospitalist Progress Note ---
Date of Service October 11, 2019 Assessment & Plan (1) Aspiration pneumonia: bibasilar infiltrates patient admits to coughing and choking a lot when eating/drinking continue Zosyn no fever, WBC elevated but he received steroids on admission follow for clinical improvement speech therapy consulted, appreciate recommendations Slippery diet, small meals, alternate liquids and solids HOB > 30 degrees at all times for reflux precaution can offer these guidelines at time of discharge patient knows he needs to eat slowly, admits he has a hard time with this (2) Headache: Likely due to Hydrocortisone use, he says that this is a side effect MRI brain obtained, no change in size of pituitary tumor, in fact, it has been stable for years continue Tylenol PRN follow up tomorrow (3) Pituitary tumor: present since 1979' no plans for surgery, just saw lisa Neurosurgeon in June MRI shows stable size 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, removal of tumor 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 every morning, Lisinopril 40 mg p.o. daily, Metoprolol succinate 100 mg p.o. nightly. BP fluxuates (7) ACTH deficiency: Continue testosterone 20.20 mg / 125 g transdermal gel pump daily continue Hydrocortisone (8) HLD (hyperlipidemia): continue simvastatin 20 mg p.o. nightly (9) Anxiety: Continue trazodone 150 mg p.o. daily, sertraline 200 mg p.o. daily buspirone 10 mg p.o. twice daily. (10) Chronic low back pain: Continue calcium carbonate 600 mg / 1500 mg vitamin D 200 p.o. twice daily, gabapentin 300 mg p.o. twice daily, meloxicam hold since patient is on Toradol. Continue trazodone 150 mg p.o. daily. (11) Prostatic hypertrophy: Continue doxazosin 8 mg p.o. nightly, dutasteride 0.5 mg/tamsulosin 0.4 mg extended capsule p.o. nightly. Subjective patient breathing well, no distress admits that he frequently with cough after eating/drinking, ongoing issue discussed the findings on CT of bibasilar infiltrates discussed his pituitary tumor, has been an issue since the just saw his neurosurgeon at [place] in June, no chu to remove, plan for follow up next June on MRI here, the tumor is same size issue is that he is blind in left eye, removing tumor may lead to blindness in right eye as well headache is better today, reports that headaches with the hydrocortisone are normal for him however, he feels a lot better on the hydrocortisone so he would want to continue taking it WBC is 17k but he got Solu Medrol yesterday Cr is 1.38, electrolytes stable Review of Systems Review of Systems: All systems reviewed & are unremarkable except as noted in HPI & below Constitutional: + fatigue and + weakness; no fever, no chills and no sweats Eyes: + problem reported (blind in left eye) Respiratory: + cough and + dyspnea on exertion; no dyspnea Cardiovascular: no chest pain Gastrointestinal: no abdominal pain, no nausea, no vomiting, no constipation and no diarrhea/loose stools Neurologic: + headache(s) (better today) Physical Exam Constitutional: WD/WN, vitals as above Eyes: PERRL, conjunctivae normal, anicteric sclerae (no vision in left eye) ENMT: external ear and nose normal, oropharynx normal Neck: trachea midline, no thyromegaly Respiratory: normal respiratory effort and + cough; no respiratory distress Auscultation: + crackles (bibasilar); no rales, no rhonchi and no wheezes Cardiovascular: RRR, no murmur, no edema Gastrointestinal (Abdomen): normal bowel sounds, soft, nontender, no hepatosplenomegaly Musculoskeletal: no cyanosis or clubbing, extremities motor strength 5/5 Skin: no rashes, warm and dry Neurologic: patellar DTR's 2+ bilat, sensation intact and PERRL, EOMI, accommodation nl, no face palsy, no dysarthria Psychiatric: A+Ox3, euthymic affect Lymphatic: no cervical or axillary lymphadenopathy Results & Data Vital Signs (Past 12 Hours) Vital Signs Temp Pulse Pulse Resp BP Pulse Ox 10/11/19 15:58 37.3 C 78 18 168/66 H 90 10/11/19 15:23 77 18 94 10/11/19 12:02 36.8 C 83 21 149/73 H 93 10/11/19 11:28 65 16 96 10/11/19 08:00 70 10/11/19 07:51 36.5 C 83 19 153/61 H 94 10/11/19 07:01 69 16 96 10/11/19 04:40 37.2 C 68 18 145/68 H 94 Laboratory Results Laboratory Results - last 24 hr 10/10/19 10/10/19 10/11/19 18:05 18:05 06:38 WBC 17.56 H RBC 3.52 L Hgb 11.0 L Hct 33.7 L MCV 95.7 MCH 31.3 MCHC 32.6 RDW Std Deviation 54.5 H RDW Coeff of Mehnaz 15.8 H Plt Count 117 L MPV 10.6 H Immature Gran % (Auto) 0.3 Neut % (Auto) 91.4 Lymph % (Auto) 4.4 Walker % (Auto) 3.8 Eos % (Auto) 0.0 Baso % (Auto) 0.1 Immature Gran # (Auto) 0.06 H Neut # (Auto) 16.04 H Lymph # (Auto) 0.78 L Walker # (Auto) 0.67 H Eos # (Auto) 0.00 Baso # (Auto) 0.01 Sodium Potassium Chloride Carbon Dioxide Anion Gap BUN Creatinine Est Cr Clr Drug Dosing Est GFR ( Amer) Est GFR (Non-Af Amer) BUN/Creatinine Ratio Glucose Lactate 1.9 Calcium Total Bilirubin AST ALT Alkaline Phosphatase Total Protein Albumin Globulin Albumin/Globulin Ratio Triglycerides Cholesterol LDL Cholesterol, Calc VLDL Cholesterol, Calc HDL Cholesterol Cholesterol/HDL Ratio Procalcitonin 37.40 H 10/11/19 06:38 WBC RBC Hgb Hct MCV MCH MCHC RDW Std Deviation RDW Coeff of Mehnaz Plt Count MPV Immature Gran % (Auto) Neut % (Auto) Lymph % (Auto) Walker % (Auto) Eos % (Auto) Baso % (Auto) Immature Gran # (Auto) Neut # (Auto) Lymph # (Auto) Walker # (Auto) Eos # (Auto) Baso # (Auto) Sodium 145 Potassium 5.1 D Chloride 114 H Carbon Dioxide 26 Anion Gap 5.0 BUN 34 H Creatinine 1.38 Est Cr Clr Drug Dosing 46.4 Est GFR ( Amer) 56.4 Est GFR (Non-Af Amer) 48.6 BUN/Creatinine Ratio 24.3 H Glucose 131 H Lactate Calcium 8.3 L Total Bilirubin 0.5 AST 54 H ALT 63 Alkaline Phosphatase 55 Total Protein 5.2 L D Albumin 2.6 L Globulin 2.6 Albumin/Globulin Ratio 1.0 Triglycerides 27 Cholesterol 106 LDL Cholesterol, Calc 43 VLDL Cholesterol, Calc 5 HDL Cholesterol 58 Cholesterol/HDL Ratio 2 Procalcitonin Medications Administered Current Inpatient Medications Acetaminophen (Tylenol) 650 mg PO Q4H PRN PRN Reason: Pain or Fever Stop: 11/09/19 17:44 Al Hydrox/Mg Hydrox/Simethicone (Maalox) 15 ml PO Q4H PRN PRN Reason: Dyspepsia Stop: 11/09/19 17:44 Albuterol (Duoneb) 3 ml NEB Q4R TOD Stop: 11/09/19 17:44 Last Admin: 10/11/19 15:21 Dose: 3 ml Documented by: Buspirone HCl (Buspar) 10 mg PO BID [facility] Stop: 11/09/19 20:59 Last Admin: 10/11/19 08:43 Dose: 10 mg Documented by: Dicyclomine HCl (Bentyl) 20 mg PO TID PRN PRN Reason: abdominal pain Stop: 11/09/19 17:44 Docusate Sodium (Colace) 200 mg PO DAILY [facility] Stop: 11/10/19 08:59 Last Admin: 10/11/19 08:43 Dose: 200 mg Documented by: Doxazosin Mesylate (Cardura) 8 mg PO HS [facility] Stop: 11/09/19 20:59 Last Admin: 10/10/19 20:44 Dose: 8 mg Documented by: Gabapentin (Neurontin) 300 mg PO BID [facility] Stop: 11/09/19 20:59 Last Admin: 10/11/19 08:44 Dose: 300 mg Documented by: Gadobutrol (Gadavist 30ml) 8 ml IV ONCE PRN PRN Reason: Interaction Checking Stop: 10/14/19 17:13 Last Admin: 10/10/19 17:14 Dose: 8 ml Documented by: Guaifenesin/Codeine Phosphate (Robitussin-Ac Sugar Free) 10 ml PO Q6H PRN PRN Reason: Cough Stop: 11/09/19 17:44 Hydralazine HCl (Hydralazine Hcl) 10 mg IV Q4H PRN PRN Reason: Hypertension Stop: 11/10/19 00:03 Hydromorphone HCl (Dilaudid) 0.5 mg IV Q2H PRN PRN Reason: Pain Stop: 10/24/19 17:44 Last Admin: 10/11/19 00:15 Dose: 0.5 mg Documented by: Piperacillin Sod/Tazobactam (Sod 3.375 gm/ Dextrose) 115 mls @ 28.75 mls/hr IV Q8H [facility]; Protocol Stop: 10/17/19 17:59 Last Infusion: 10/11/19 14:10 Dose: Infused Documented by: Methylprednisolone 40 mg/ (Syringe) 0.64 mls @ 1.5 mls/min IV Q24H [facility] Stop: 11/11/19 07:59 Lisinopril (Zestril) 40 mg PO DAILY [facility] Stop: 11/10/19 08:59 Last Admin: 10/11/19 08:43 Dose: 40 mg Documented by: Magnesium Hydroxide (Milk Of Magnesia) 30 ml PO Q12H PRN PRN Reason: Constipation Stop: 11/09/19 17:44 Magnesium Ox[facility] (Mag-Ox) [facility] Stop: 11/10/19 08:59 Last Admin: 10/11/19 08:43 Dose: 400 mg Documented by: Meloxicam (Mobic) 15 mg PO [facility] Stop: 11/09/19 20:59 Last Admin: 10/10/19 20:45 Dose: 15 mg Documented by: Metoprolol Succinate (Toprol Xl) 100 mg PO [facility] Stop: 11/09/19 20:59 Last Admin: 10/10/19 20:45 Dose: 100 mg Documented by: Miscellaneous (Order Awaiting Action) 1 ea N/A QS [facility] Stop: 11/10/19 00:00 Last Admin: 10/11/19 08:44 Dose: Not Given Documented by: Miscellaneous (Order Awaiting Action) 1 ea N/A QS [facility] Stop: 11/10/19 00:00 Last Admin: 10/11/19 08:44 Dose: Not Given Documented by: Miscellaneous Information (Consult) 1 ea N/A UD PRN PRN Reason: Consult Stop: 11/09/19 12:10 Multivitamins (Multivitamin Tab) 1 tab PO DAILY [facility] Stop: 11/10/19 08:59 Last Admin: 10/11/19 08:43 Dose: 1 tab Documented by: Multivitamins/Minerals (Caltrate Plus) 1 tab PO BID [facility] Stop: 11/09/19 20:59 Last Admin: 10/11/19 08:43 Dose: 1 tab Documented by: Polyethylene Glycol (Miralax Powder Packet) 17 gm PO DAILY PRN PRN Reason: Constipation Stop: 11/09/19 17:44 Sertraline HCl (Zoloft) 200 mg PO DAILY [facility] Stop: 11/10/19 08:59 Last Admin: 10/11/19 08:43 Dose: 200 mg Documented by: Simvastatin (Zocor) 20 mg PO HS [facility] Stop: 11/09/19 20:59 Last Admin: 10/10/19 20:44 Dose: 20 mg Documented by: Sodium Chloride (Sodium Chlor 7% Neb Solution) 4 ml NEB BIDR [facility] Stop: 11/09/19 18:59 Last Admin: 10/11/19 07:00 Dose: 4 ml Documented by: Tamsulosin HCl (Flomax) 0.4 mg PO HS [facility] Stop: 11/09/19 20:59 Last Admin: 10/10/19 20:45 Dose: 0.4 mg Documented by: Trazodone HCl (Desyrel) 150 mg PO DAILY [facility] Stop: 11/09/19 17:44 Last Admin: 10/11/19 08:43 Dose: 150 mg Documented by: PG Care Time/CCT Total # of Minutes Spent Total Time Spent with Patient: Total time spent is greater than 50% in coordination of care (as documented) at patient's floor/unit and/or counseling patient: Coding Level of Care Code 38901 Subseq Hosp Care Lvl 3 Diagnoses Aspiration pneumonia J69.0 Headache R51 Pituitary tumor D49.7 Aspiration into airway T17.908A Acute respiratory failure J96.00 Hypertension I10 ACTH deficiency E23.6 HLD (hyperlipidemia) E78.5 Anxiety F41.9 Chronic low back pain M54.5; G89.29 Prostatic hypertrophy N40.0
[2019-10-11] MEDS: MELOXICAM 7.5 MG TAB PO SCH (20:16)
[2019-10-11] MEDS: METOPROLOL SUCC 50MG EXT REL TAB PO SCH (20:17)
[2019-10-11] MEDS: DOXAZosin MESYLATE TAB 2 MG TAB PO SCH (20:23)
[2019-10-11] MEDS: TAMSULOSIN HCL 0.4 MG CAP PO SCH (20:24)
[2019-10-11] MEDS: SIMVASTATIN 20 MG TAB PO SCH (20:24)
[2019-10-12] MEDS: PIPERACILLIN/TAZOBACTAM 3.375 GM in DEXTROSE 5% 100 ML IV SCH ×2 (02:03→09:39)
[2019-10-12] MEDS: ALBUT/IPRATROP 3MG/0.5MG NEB 3 ML VIAL NEB SCH ×6 (03:04→23:32)
[2019-10-12] MEDS: ACETAMINOPHEN 325 MG TAB PO PRN ×2 (03:24→08:11)
[2019-10-12] MEDS: HydrALAZINE HCL 20 MG/ML VIAL IV PRN ×4 (04:49→20:10)
--- NOTE | 2019-10-12 06:36 | XRay Report ---
XR chest 1V portable CLINICAL HISTORY: dyspnea COMPARISON STUDY: Chest radiograph October 10, 2019. FINDINGS: There is no pneumothorax. A small right pleural effusion is noted. There is a trace left pl eural effusion. Mild cardiomegaly is noted. Interstitial thickening and bilateral opacities have impr kobe since exam of October 10, 2019. Right basilar opacity may reflect atelectasis or fissural fluid. IMPRESSION: 1. Interval improvement in interstitial thickening and bilateral opacities since exam of October 10, 2019. The findings may reflect pneumonia or pulmonary edema. 2. Suspected small right and trace left pleural effusions. ACT 112: Negative or not required by law. Electronically signed by: Leo Mcfarland M.D. 10/12/2019 6:35 AM
[2019-10-12] MEDS: SODIUM CHLOR 7% 4 ML NEB NEB SCH (07:00)
[2019-10-12 07:52] LABS: Basophils # (auto) 0.01 K/uL (0-0.2); Basophils % (auto) 0.1 %; Eosinophils # (auto) 0.07 K/uL (0-0.5); Eosinophils % (auto) 0.4 %; Hematocrit (blood only) 31.8 % (42-52); Hemoglobin 10.4 g/dL (14.0-18.0); Immature Granulocytes # (auto) 0.09 K/uL (0.00-0.02); Immature Granulocytes % (auto) 0.5 %; Lymphocytes # (auto) 2.76 K/uL (1.2-3.4); Lymphocytes % (auto) 14.9 %; Mean Corpuscular Hgb Conc 32.7 g/dL (32-36); Mean Corpuscular Volume 94.6 fL (80-100); Mean Platelet Volume 11.1 fL (7.4-10.4); Monocytes # (auto) 0.67 K/uL (0.11-0.59); Monocytes % (auto) 3.6 %; Neutrophils % (auto) 80.5 %; Platelet Count 114 K/uL (130-400); RDW Coefficient of Variation 16.1 % (11.5-14.5); RDW Standard Deviation 56.4 fL (36.4-46.3); Red Blood Count 3.36 M/uL (4.7-6.1)
[2019-10-12] MEDS ORDERED: methylPREDNISolone 40 MG in SYRINGE 0 ML IV SCH (08:00)
[2019-10-12 08:20] LABS: Albumin Level 2.7 gm/dl (3.4-5.0); BUN Creatinine Ratio 25.3 (10-20); Creatinine Clr Calc Pharmacy 47.4 ml/min; Est GFR (African American) 57.9; Est GFR (Non-African American) 49.9; Potassium 3.9 mmol/L (3.5-5.1)
[2019-10-12 08:21] LABS: Albumin Globulin Ratio 0.9 (0.9-2); Bilirubin,Total 0.7 mg/dl (0.2-1); Total Protein 5.7 gm/dl (6.4-8.2)
[2019-10-12] MEDS: MAGNESIUM OXIDE 400 MG TAB PO SCH (08:45)
[2019-10-12] MEDS: lisinopriL 40 MG TAB PO SCH (08:45)
[2019-10-12] MEDS: SERTRALINE HCL 100 MG TABLET PO SCH (08:46)
[2019-10-12] MEDS: CALCIUM 600MG + VIT D 400 IU TAB PO SCH ×2 (08:46→20:13)
[2019-10-12] MEDS: GABAPENTIN 300 MG CAP PO SCH ×2 (08:46→20:12)
[2019-10-12] MEDS: MULTIVITAMIN TAB PO SCH (08:46)
[2019-10-12] MEDS: DOCUSATE SODIUM 100 MG CAP PO SCH (08:46)
[2019-10-12] MEDS: TRAZODONE HCL 50 MG TAB PO SCH (08:47)
[2019-10-12 11:59] LABS: Influenza A virus by PCR Neg for Influ A (Neg); Influenza B virus by PCR Neg for Influ B (Neg)
[2019-10-12] MEDS ORDERED: LABETALOL HCL IV 5 MG/ML 20ML IV STA (16:24)
[2019-10-12] MEDS: MoRPHine SULFATE 2 MG/ML CARP IV PRN ×2 (16:45→20:21)
--- NOTE | 2019-10-12 16:59 | Hospitalist Progress Note ---
Date of Service October 12, 2019 Assessment & Plan (1) Hypertensive urgency: With corresponding severe headaches Responding IV labetalol and IV hydralazine Add amlodipine 5 mg daily in the morning Continue Toprol-XL 100 at bedtime Continue lisinopril Morphine as needed for headaches-caution with opioids (2) Aspiration pneumonia: bibasilar infiltrates now much improved on repeat chest x-ray patient admits to coughing and choking a lot when eating/drinking and also vomited once with a severe headache prior to admission Convert Zosyn to Augmentin finish 7-day course no fever, WBC elevated but he received steroids on admission follow for clinical improvement-much improved speech therapy consulted, appreciate recommendations Slippery diet, small meals, alternate liquids and solids HOB > 30 degrees at all times for reflux precaution can offer these guidelines at time of discharge patient knows he needs to eat slowly, admits he has a hard time with this (3) Headache: Has chronic daily headache since starting hydrocortisone Likely due to Hydrocortisone use, he says that this is a side effect Headache significantly worsened here with hypertensive urgency Also contributing is anxiety and severely elevated BP MRI brain obtained, no change in size of pituitary tumor, in fact, it has been stable for years CTA head today negative for aneurysm -control BP with IV labetalol, IV hydralazine both prn -continue Toprol XL 100mg hs, lisinopril 40mg daily, and add on amlodipine 5mg daily in AM continue Tylenol PRN -add morphine 2mg IV q4h prn--> caution with h/o opioid dependence requiring re hab inpatient stay (4) Pituitary tumor: present since 1979' no plans for surgery, just saw [facility] Neurosurgeon in June MRI shows stable size 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, removal of tumor 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 daily, Metoprolol succinate 100 mg p.o. nightly. Adding amlodipine as above (8) ACTH deficiency: Continue testosterone 20.20 mg / 125 g transdermal gel pump daily Restart home hydrocortisone and DC IV Solu-Medrol Follows with endocrinology (9) HLD (hyperlipidemia): continue simvastatin 20 mg p.o. nightly (10) Anxiety: Seems to be exacerbated by hospitalization -Continue trazodone 150 mg p.o. daily, sertraline 200 mg p.o. daily buspirone 10 mg p.o. twice daily. Follow (11) Chronic low back pain: Stable -Continue gabapentin 300 mg p.o. twice daily -DC meloxicam given chronic kidney disease and hypertensive urgency (12) Prostatic hypertrophy: Continue doxazosin 8 mg p.o. nightly, dutasteride 0.5 mg/tamsulosin 0.4 mg extended capsule p.o. nightly which was brought in from home. (13) DVT prophylaxis: Jeannie, GERA cruz, ambulation Disposition-remain on PCU for hypertensive urgency Subjective Patient had severe headaches off and on in the frontal region in the right side of his head that were 10/10, no associated visual changes, weakness/numbness. No chest pain. He did feel short of breath overnight and a chest x-ray was ordered which actually looks much improved from previous. ECG was also ordered and also appeared without ischemia. He had significantly elevated blood pressures today that corresponded to his severe headaches. His IV Solu-Medrol was discontinued and he was given IV labetalol as well as IV hydralazine with improvement of the headache. He was also given IV morphine. His reminded me to be cautious with opioids as he was just in inpatient rehab for opioid dependence a couple of months ago. Patient reports he is terrified that he has a brain aneurysm and is requesting a CT scan to check for this. Minimal productive cough. No nausea or abdominal pain. Telemetry with normal sinus rhythm with rates in the 80s. Review of Systems Review of Systems: All systems reviewed & are unremarkable except as noted in HPI & below Physical Exam Constitutional: WD/WN, vitals as above Eyes: PERRL, conjunctivae normal, anicteric sclerae EOM intact bilaterally ENMT: external ear and nose normal, oropharynx normal Neck: trachea midline, no thyromegaly Respiratory: normal respiratory effort and + cough Auscultation: + rhonchi (Bibasilar) Cardiovascular: RRR, no murmur, no edema Chest (Breasts): Chest: normal inspection of chest Gastrointestinal (Abdomen): normal bowel sounds, soft, nontender, no hepatosplenomegaly Musculoskeletal: Extremities: extremities normal to inspection; no cyanosis and no clubbing Skin: no rashes, warm and dry Neurologic: CN's II-XI intact bilaterally, moves all extremities and awake; no focal motor deficits Psychiatric: A+Ox3, euthymic affect Lymphatic: no lymphedema Results & Data Vital Signs (Past 12 Hours) Vital Signs Temp Pulse Pulse Resp BP BP Pulse Ox 10/12/19 16:27 182/83 H 10/12/19 15:59 78 14 96 10/12/19 15:22 71 10/12/19 15:19 36.4 C L 67 18 193/82 H 95 10/12/19 11:43 36.6 C 84 20 166/76 H 95 10/12/19 11:04 81 16 95 10/12/19 08:00 80 10/12/19 07:54 37.3 C 78 19 188/87 H 96 10/12/19 07:00 82 18 97 Laboratory Results 10/12/19 10/12/19 10/12/19 Range/Units 11:12 07:23 07:23 WBC 18.50 H (4.8-10.8) K/uL RBC 3.36 L (4.7-6.1) M/uL Hgb 10.4 L (14.0-18.0) g/dL Hct 31.8 L (42-52) % MCV 94.6 (80-100) fL MCH 31.0 (25-34) pg MCHC 32.7 (32-36) g/dL RDW Std Deviation 56.4 H (36.4-46.3) fL RDW Coeff of Mehnaz 16.1 H (11.5-14.5) % Plt Count 114 L (130-400) K/uL MPV 11.1 H (7.4-10.4) fL Immature Gran % (Auto) 0.5 % Neut % (Auto) 80.5 % Lymph % (Auto) 14.9 % [facility] % (Auto) 3.6 % Eos % (Auto) 0.4 % Baso % (Auto) 0.1 % Immature Gran # (Auto) 0.09 H (0.00-0.02) K/uL Neut # (Auto) 14.90 H (1.4-6.5) K/uL Lymph # (Auto) 2.76 (1.2-3.4) K/uL [facility] # (Auto) 0.67 H (0.11-0.59) K/uL Eos # (Auto) 0.07 (0-0.5) K/uL Baso # (Auto) 0.01 (0-0.2) K/uL Sodium 142 (136-145) mmol/L Potassium 3.9 D (3.5-5.1) mmol/L Chloride 110 H (98-107) mmol/L Carbon Dioxide 27 (21-32) mmol/L Anion Gap 5.0 (3-11) BUN 34 H (7-18) mg/dl Creatinine 1.35 (0.6-1.4) mg/dl Est Cr Clr Drug Dosing 47.4 ml/min Est GFR ( Amer) 57.9 Est GFR (Non-Af Amer) 49.9 BUN/Creatinine Ratio 25.3 H (10-20) Glucose 84 (70-99) mg/dl Calcium 9.0 (8.5-10.1) mg/dl Total Bilirubin 0.7 (0.2-1) mg/dl AST 31 (15-37) U/L ALT 41 (12-78) U/L Alkaline Phosphatase 60 (45-117) U/L Total Protein 5.7 L (6.4-8.2) gm/dl Albumin 2.7 L (3.4-5.0) gm/dl Globulin 3.0 (2.5-4.0) gm/dl Albumin/Globulin Ratio 0.9 (0.9-2) Influenza Type A (PCR) Neg for Influ A (Neg) Influenza Type B (PCR) Neg for Influ B (Neg) PG Care Time/CCT Total # of Minutes Spent Total Time Spent with Patient: Total time spent is greater than 50% in coordination of care (as documented) at patient's floor/unit and/or counseling patient: Coding Level of Care Code 48113 Subseq Hosp Care Lvl 3 Diagnoses Hypertensive urgency I16.0 Aspiration pneumonia J69.0 Headache R51 Pituitary tumor D49.7 Aspiration into airway T17.908A Acute respiratory failure J96.00 Hypertension I10 ACTH deficiency E23.6 HLD (hyperlipidemia) E78.5 Anxiety F41.9 Chronic low back pain M54.5; G89.29 Prostatic hypertrophy N40.0 DVT prophylaxis Z29.9
[2019-10-12] MEDS: AMOXICILLIN/CLAVULANATE 875 MG TAB PO SCH (17:41)
[2019-10-12] MEDS ORDERED: OPTIRAY 320 125ml IV PRN (19:50)
--- NOTE | 2019-10-12 19:55 | Electrocardiogram Report ---
Test Reason : Blood Pressure : / mmHG Vent. Rate : 088 BPM Atrial Rate : 088 BPM P-R Int : 154 ms QRS Dur : 084 ms QT Int : 348 ms P-R-T Axes : 040 -21 038 degrees QTc Int : 421 ms Normal sinus rhythm Minimal voltage criteria for LVH, may be normal variant Borderline ECG When compared with ECG of 06-JUN-2019 07:06, No significant change was found Confirmed by Xander Mae ([id number]) on 10/12/2019 7:55:27 PM Referred By: REFERRED SELF Confirmed By:Alonso Mae
--- NOTE | 2019-10-12 19:57 | CT Scan Report ---
CT angio head w con HISTORY: Mental status change severe headache,rule out aneurysm TECHNIQUE: Multiaxial CT angiography of the head was performed IV contrast: 100 cc nonionic Maximu m intensity projection images were also obtained. A dose lowering technique was utilized adhering to the principles of ALARA. COMPARISON: 10/10/2019 FINDINGS: There is no mass, hematoma, midline shift, or acute infarct. Visualized intracranial internet sourcer al carotid arteries, distal vertebral arteries, and basilar artery are widely patent. There is no sig nificant stenosis, occlusion, or aneurysm seen within the bilateral ACAs, MCAs, or methods examiner. IMPRESSION: No significant stenosis, occlusion, or aneurysm within the [place] [facility] [place]. Negative CT of the brain ACT 112: Negative or not required by law. The above report was generated using voice recognition software. It may contain grammatical, syntax or spelling errors. Electronically signed by: Pal Huerta M.D. 10/12/2019 7:55 PM
--- NOTE | 2019-10-12 19:59 | Electrocardiogram Report ---
Test Reason : Blood Pressure : / mmHG Vent. Rate : 086 BPM Atrial Rate : 086 BPM P-R Int : 164 ms QRS Dur : 088 ms QT Int : 368 ms P-R-T Axes : 051 -20 029 degrees QTc Int : 440 ms Normal sinus rhythm Normal ECG When compared with ECG of 11-OCT-2019 20:21, (unconfirmed) No significant change was found Confirmed by Xander Mae ([id number]) on 10/12/2019 7:58:45 PM Referred By: REFERRED SELF Confirmed By:Alonso Mae
[2019-10-12] MEDS: SIMVASTATIN 20 MG TAB PO SCH (20:11)
[2019-10-12] MEDS: DOXAZosin MESYLATE TAB 2 MG TAB PO SCH (20:12)
[2019-10-12] MEDS: METOPROLOL SUCC 50MG EXT REL TAB PO SCH (20:13)
[2019-10-12] MEDS: TAMSULOSIN HCL 0.4 MG CAP PO SCH (20:13)
[2019-10-12] MEDS ORDERED: LORazepam 1 MG/2 ML VIAL IV STA (21:00)
[2019-10-12] MEDS ORDERED: LABETALOL HCL IV 5 MG/ML 20ML IV PRN (23:56)
[2019-10-13] MEDS: ALBUT/IPRATROP 3MG/0.5MG NEB 3 ML VIAL NEB SCH ×6 (02:40→23:04)
[2019-10-13 07:21] LABS: Basophils # (auto) 0.01 K/uL (0-0.2); Basophils % (auto) 0.1 %; Eosinophils # (auto) 0.15 K/uL (0-0.5); Hematocrit (blood only) 30.6 % (42-52); Immature Granulocytes # (auto) 0.08 K/uL (0.00-0.02); Immature Granulocytes % (auto) 0.5 %; Lymphocytes # (auto) 1.54 K/uL (1.2-3.4); Lymphocytes % (auto) 10.3 %; Mean Corpuscular Hemoglobin 31.2 pg (25-34); Mean Corpuscular Hgb Conc 32.7 g/dL (32-36); Mean Corpuscular Volume 95.3 fL (80-100); Mean Platelet Volume 10.7 fL (7.4-10.4); Monocytes # (auto) 0.62 K/uL (0.11-0.59); Monocytes % (auto) 4.2 %; Neutrophils # (auto) 12.52 K/uL (1.4-6.5); Neutrophils % (auto) 83.9 %; Platelet Count 115 K/uL (130-400); RDW Coefficient of Variation 16.3 % (11.5-14.5); RDW Standard Deviation 57.5 fL (36.4-46.3); Red Blood Count 3.21 M/uL (4.7-6.1); White Blood Count 14.92 K/uL (4.8-10.8)
[2019-10-13] MEDS: HydrALAZINE HCL 20 MG/ML VIAL IV PRN ×2 (07:23→18:14)
[2019-10-13 07:55] LABS: Albumin Level 2.5 gm/dl (3.4-5.0); BUN Creatinine Ratio 28.4 (10-20); Calcium 9.2 mg/dl (8.5-10.1); Creatinine Clr Calc Pharmacy 58.2 ml/min; Est GFR (African American) 74.1; Potassium 4.2 mmol/L (3.5-5.1)
[2019-10-13 07:57] LABS: Albumin Globulin Ratio 0.8 (0.9-2); Bilirubin,Total 0.7 mg/dl (0.2-1); Globulin 3.1 gm/dl (2.5-4.0); Total Protein 5.6 gm/dl (6.4-8.2)
[2019-10-13] MEDS: lisinopriL 40 MG TAB PO SCH (08:26)
[2019-10-13] MEDS: MULTIVITAMIN TAB PO SCH (08:28)
[2019-10-13] MEDS: CALCIUM 600MG + VIT D 400 IU TAB PO SCH ×2 (08:28→20:29)
[2019-10-13] MEDS: MAGNESIUM OXIDE 400 MG TAB PO SCH (08:28)
[2019-10-13] MEDS: TRAZODONE HCL 50 MG TAB PO SCH (08:28)
[2019-10-13] MEDS: GABAPENTIN 300 MG CAP PO SCH ×2 (08:28→20:27)
[2019-10-13] MEDS: DOCUSATE SODIUM 100 MG CAP PO SCH (08:28)
[2019-10-13] MEDS: SERTRALINE HCL 100 MG TABLET PO SCH (08:28)
[2019-10-13] MEDS: HYDROCORTISONE 10 MG TAB PO SCH ×2 (08:29→16:22)
[2019-10-13] MEDS: AMOXICILLIN/CLAVULANATE 875 MG TAB PO SCH ×2 (08:29→16:24)
[2019-10-13] MEDS: MoRPHine SULFATE 2 MG/ML CARP IV PRN ×3 (08:35→20:29)
[2019-10-13] MEDS: TESTOSTERONE GEL TOP SCH (08:38)
[2019-10-13] MEDS ORDERED: METOPROLOL SUCC 50MG EXT REL TAB PO SCH (09:00)
[2019-10-13] MEDS ORDERED: AMLODIPINE BESYLATE 5 MG TAB PO SCH (10:30)
--- NOTE | 2019-10-13 13:18 | Hospitalist Progress Note ---
Date of Service October 13, 2019 Assessment & Plan (1) Hypertensive urgency: With corresponding severe headaches Responding IV labetalol and IV hydralazine, blood pressures not as high and is slowly improving -Continue amlodipine 5 mg daily in the morning and increase as needed Continue Toprol-XL 100 at bedtime and added Toprol-XL 50 in the morning Continue lisinopril at home dose Morphine as needed for headaches-caution with opioids given history of dependence (2) Aspiration pneumonia: bibasilar infiltrates now much improved on repeat chest x-ray patient admits to coughing and choking a lot when eating/drinking and also vomited once with a severe headache prior to admission Convert Zosyn to Augmentin finish 7-day course no fever, WBC elevated but he received steroids on admission follow for clinical improvement-much improved speech therapy consulted, appreciate recommendations Slippery diet, small meals, alternate liquids and solids HOB > 30 degrees at all times for reflux precaution can offer these guidelines at time of discharge patient knows he needs to eat slowly, admits he has a hard time with this (3) Headache: Has chronic daily headache since starting hydrocortisone Likely due to Hydrocortisone use, he says that this is a side effect Headache significantly worsened here with hypertensive urgency-improved today with better control blood pressure Also contributing is anxiety and severely elevated BP MRI brain obtained, no change in size of pituitary tumor, in fact, it has been stable for years CTA head here negative for aneurysm -control BP with IV labetalol, IV hydralazine both prn -continue Toprol XL 100mg hs, lisinopril 40mg daily, and amlodipine 5mg daily in AM continue Tylenol PRN -Continue morphine 2mg IV q4h prn--> caution with h/o opioid dependence requ iring rehab inpatient stay (4) Pituitary tumor: present since 1979's no plans for surgery, just saw l[facility] Neurosurgeon in June MRI shows stable size 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, removal of tumor 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, 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 daily, Metoprolol succinate 100 mg p.o. nightly. And added 50 in the morning Added amlodipine as above (8) ACTH deficiency: Continue testosterone 20.20 mg / 125 g transdermal gel pump daily Restart home hydrocortisone and DCd IV Solu-Medrol Follows with endocrinology (9) HLD (hyperlipidemia): continue simvastatin 20 mg p.o. nightly (10) Anxiety: Seems to be exacerbated by hospitalization -Continue trazodone 150 mg p.o. daily, sertraline 200 mg p.o. daily buspirone 10 mg p.o. twice daily. With panic attacks at night -Add on hydroxyzine 10 mg p.o. every 6 hours as needed -Avoid benzodiazepines-history of opioid dependence (11) Chronic low back pain: Stable -Continue gabapentin 300 mg p.o. twice daily -DC meloxicam given chronic kidney disease and hypertensive urgency (12) Prostatic hypertrophy: Continue doxazosin 8 mg p.o. nightly, dutasteride 0.5 mg/tamsulosin 0.4 mg extended capsule p.o. nightly which was brought in from home. (13) DVT prophylaxis: SCDs, GERA hose, ambulation Disposition-remain on PCU for hypertensive urgency Subjective Patient still having intermittent headaches when blood pressures are elevated. He is having significant anxiety especially at nighttime and reports he has this happen at home as well. He reports lorazepam helped him in the past but we do not want to give him benzodiazepines here-discussed this with him. He is willing to try hydroxyzine. Denies chest pain. Only feels short of breath when he gets anxious at nighttime. Telemetry with normal sinus rhythm, rates in the 90s Review of Systems Review of Systems: All systems reviewed & are unremarkable except as noted in HPI & below Physical Exam Constitutional: WD/WN, vitals as above Eyes: + anicteric sclerae ENMT: external ear and nose normal, oropharynx normal Neck: trachea midline, no thyromegaly Respiratory: normal respiratory effort and + cough Auscultation: lungs clear to auscultation bilaterally Cardiovascular: RRR, no murmur, no edema Chest (Breasts): Chest: normal inspection of chest Gastrointestinal (Abdomen): normal bowel sounds, soft, nontender, no hepatosplenomegaly Musculoskeletal: Extremities: extremities normal to inspection; no cyanosis and no clubbing Skin: no rashes, warm and dry Neurologic: moves all extremities and awake; no focal motor deficits Psychiatric: Orientation: alert and oriented x 3 Lymphatic: no lymphedema Results & Data Vital Signs (Past 12 Hours) Vital Signs Temp Pulse Pulse Resp BP BP Pulse Ox 10/13/19 11:38 36.7 C 80 20 169/78 H 90 10/13/19 11:12 77 16 91 10/13/19 08:59 146/56 H 10/13/19 08:48 77 10/13/19 07:11 36.9 C 92 H 20 191/87 H 90 10/13/19 06:59 77 18 90 10/13/19 03:47 37.1 C 86 20 172/73 H 96 10/13/19 02:40 84 18 85 L Laboratory Results Labs reviewed PG Care Time/CCT Total # of Minutes Spent Total Time Spent with Patient: Total time spent is greater than 50% in coordination of care (as documented) at patient's floor/unit and/or counseling patient: Coding Level of Care Code 27495 Subseq Hosp Care Lvl 3 Diagnoses Hypertensive urgency I16.0 Aspiration pneumonia J69.0 Headache R51 Pituitary tumor D49.7 Aspiration into airway T17.908A Acute respiratory failure J96.00 Hypertension I10 ACTH deficiency E23.6 HLD (hyperlipidemia) E78.5 Anxiety F41.9 Chronic low back pain M54.5; G89.29 Prostatic hypertrophy N40.0 DVT prophylaxis Z29.9
[2019-10-13] MEDS: hydrOXYzine HCl 10 MG TAB PO PRN (16:23)
[2019-10-13] MEDS: SIMVASTATIN 20 MG TAB PO SCH (20:27)
[2019-10-13] MEDS: DOXAZosin MESYLATE TAB 2 MG TAB PO SCH (20:27)
[2019-10-13] MEDS: METOPROLOL SUCC 50MG EXT REL TAB PO SCH (20:28)
[2019-10-13] MEDS ORDERED: TAMSULOSIN HCL PO SCH (21:00)
[2019-10-13] MEDS ORDERED: DUTASTERIDE PO SCH (21:00)
[2019-10-14] MEDS: HydrALAZINE HCL 20 MG/ML VIAL IV PRN (03:12)
[2019-10-14] MEDS: ALBUT/IPRATROP 3MG/0.5MG NEB 3 ML VIAL NEB SCH ×2 (03:22→07:39)
[2019-10-14] MEDS: ACETAMINOPHEN 325 MG TAB PO PRN (03:46)
[2019-10-14] MEDS: hydrOXYzine HCl 10 MG TAB PO PRN (03:57)
[2019-10-14 06:56] LABS: Basophils # (auto) 0.02 K/uL (0-0.2); Basophils % (auto) 0.2 %; Eosinophils # (auto) 0.56 K/uL (0-0.5); Eosinophils % (auto) 5.3 %; Hematocrit (blood only) 30.7 % (42-52); Hemoglobin 10.2 g/dL (14.0-18.0); Immature Granulocytes # (auto) 0.16 K/uL (0.00-0.02); Immature Granulocytes % (auto) 1.5 %; Lymphocytes # (auto) 2.39 K/uL (1.2-3.4); Lymphocytes % (auto) 22.5 %; Mean Corpuscular Hemoglobin 31.7 pg (25-34); Mean Corpuscular Hgb Conc 33.2 g/dL (32-36); Mean Corpuscular Volume 95.3 fL (80-100); Mean Platelet Volume 9.6 fL (7.4-10.4); Monocytes # (auto) 0.71 K/uL (0.11-0.59); Monocytes % (auto) 6.7 %; Neutrophils % (auto) 63.8 %; Platelet Count 124 K/uL (130-400); RDW Coefficient of Variation 16.2 % (11.5-14.5); RDW Standard Deviation 56.3 fL (36.4-46.3); Red Blood Count 3.22 M/uL (4.7-6.1); White Blood Count 10.64 K/uL (4.8-10.8)
[2019-10-14 07:24] LABS: Albumin Level 2.3 gm/dl (3.4-5.0); BUN Creatinine Ratio 19.9 (10-20); Calcium 9.3 mg/dl (8.5-10.1); Creatinine Clr Calc Pharmacy 54.5 ml/min; Est GFR (African American) 68.8; Est GFR (Non-African American) 59.4; Potassium 3.9 mmol/L (3.5-5.1)
[2019-10-14 07:27] LABS: Albumin Globulin Ratio 0.7 (0.9-2); Bilirubin,Total 0.4 mg/dl (0.2-1); Globulin 3.1 gm/dl (2.5-4.0); Total Protein 5.4 gm/dl (6.4-8.2)
[2019-10-14] MEDS: AMOXICILLIN/CLAVULANATE 875 MG TAB PO SCH ×2 (07:48→16:51)
[2019-10-14] MEDS: DOCUSATE SODIUM 100 MG CAP PO SCH (07:49)
[2019-10-14] MEDS: GABAPENTIN 300 MG CAP PO SCH (07:49)
[2019-10-14] MEDS: SERTRALINE HCL 100 MG TABLET PO SCH (07:49)
[2019-10-14] MEDS: CALCIUM 600MG + VIT D 400 IU TAB PO SCH (07:50)
[2019-10-14] MEDS: MULTIVITAMIN TAB PO SCH (07:50)
[2019-10-14] MEDS: lisinopriL 40 MG TAB PO SCH (07:50)
[2019-10-14] MEDS: HYDROCORTISONE 10 MG TAB PO SCH ×2 (07:51→15:39)
[2019-10-14] MEDS: MAGNESIUM OXIDE 400 MG TAB PO SCH (07:52)
[2019-10-14] MEDS: TESTOSTERONE GEL TOP SCH (07:53)
[2019-10-14] MEDS ORDERED: METOPROLOL SUCC 50MG EXT REL TAB PO SCH (09:00)
[2019-10-14] MEDS ORDERED: AMLODIPINE BESYLATE 5 MG TAB PO SCH (09:00)
[2019-10-14] MEDS: TRAZODONE HCL 50 MG TAB PO SCH (09:18)
[2019-10-14] MEDS ORDERED: ALBUT/IPRATROP 3MG/0.5MG NEB 3 ML VIAL NEB PRN (11:00)
[2019-10-14] MEDS ORDERED: SODIUM CHLORIDE 0.65% NA SOLN 45 ML (OCEAN) ONE (11:05)
--- NOTE | 2019-10-14 16:50 | Discharge Summary ---
Date of Service October 14, 2019 Admission HPI Per Admitting Provider The patient is a 79 years old male with past medical history of hyperlipidemia, anxiety, lower back pain, hypertension, opiate dependence, pituitary tumor , blindness of left eye who presented to the emergency room with a complaint of a severe headache since last night. Patient reports that he could not sleep and that headache kept him awake. Patient states that his headache started behind his right ear, and improved with pain medicine in the emergency room and being placed on oxygen. The patient reports when he came in the headache was 10 of 10 in severity. Patient reports vomiting 1 time last night and he still feels nauseated. Patient denies any incidents such as falling or hitting his head. Patient reports cough for several days. He said he has trouble swallowing and sometimes food stays in his esophagus. Patient states that he is on hydrocortisone for several months as per his truck hop and he noted that these headaches are associated with hydrocortisone. Patient denies fever, chill s, chest pain, shortness of breath, abdominal pain, frequency, urgency, syncope or near syncope. Per Dr. 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 Patient is blind to his left eye. Patient saw Dr. June about surgery in 2018 he recommended proceeding to preserve vision in the right eye with waiting for your a reasonable option. The patient decided to wait. In 1979 patient had diagnostic craniotomy and diagnosis was not made. 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 Patient had MRI repeatedly every year 2005 through 2008. Patient was previously on methimazole which is stopped resulting in more normal free T4 and T3 level. Patient symptoms at that time were that he was tired, lightheaded not motivated and difficult to get out of bed in the morning. All this resolved after bolus patient placed on physiological doses of hydrocortisone per Dr. Reece. Labs are reviewed: Sodium 146, potassium 3.4, chloride 111, carbon dioxide 32, BUN 30, creatinine 1.25, GFR 54.8 calcium 9,Total bili 0.4, AST 25, ALT 23, alkaline phosphatase 80 Albumin 3.7, globulin 3.1, TSH 0.005 ,free T4 1.33. Urine all clear. A decision was made to admit patient for severe headache most likely related to his meningioma, pneumonia versus pneumonitis most likely aspirational to PCU on telemetry. Principal Diagnosis Hypertensive urgency, Headache intractable, aspiration pneumonia, acute respiratory failure with hypoxia Discharge Exam Constitutional WD/WN, vitals as above Eyes + anicteric sclerae Neck trachea midline, no thyromegaly Respiratory normal respiratory effort and + cough Auscultation: lungs clear to auscultation bilaterally Cardiovascular RRR, no murmur, no edema Chest (Breasts) Chest: normal inspection of chest Gastrointestinal (Abdomen) normal bowel sounds, soft, nontender, no hepatosplenomegaly Musculoskeletal Extremities: extremities normal to inspection; no cyanosis and no clubbing Skin no rashes, warm and dry Neurologic moves all extremities and awake; no focal motor deficits Psychiatric A+Ox3, euthymic affect Orientation: alert and oriented x 3 Lymphatic no lymphedema Discharge Data Allergies Allergy/AdvReac Type Severity Reaction Status Date / Time No Known Allergies Allergy Verified 10/10/19 10:22 Consultations 10/10/19 12:13 ED Decision to Admit Stat Ordered Studies 10/10/19 09:25 CT head/brain wo con Stat 10/10/19 15:06 MR brain pituitary wo/w con Stat 10/12/19 16:39 CT angio head w con Stat CXR Hospital Course (1) Hypertensive urgency: With corresponding severe headaches Responding IV labetalol and IV hydralazine, and increased doses of Toprol and addition of amlodipine Now RESOLVED -Continue amlodipine 10 mg daily in the morning Continue Toprol-XL 100 bid Continue lisinopril at home dose of 40mg daily (2) Aspiration pneumonia: bibasilar infiltrates now much improved on repeat chest x-ray patient admits to coughing and choking a lot when eating/drinking and also vomited once with a severe headache prior to admission Converted Zosyn to Augmentin finish 7-day course-3 more days needed after discharge no fever, WBC elevated but he received steroids on admission follow for clinical improvement-much improved speech therapy consulted, appreciate recommendations Slippery diet, small meals, alternate liquids and solids HOB > 30 degrees at all times for reflux precaution can offer these guidelines at time of discharge patient knows he needs to eat slowly, admits he has a hard time with this (3) Headache: Has chronic daily headache since starting hydrocortisone Likely due to Hydrocortisone use, he says that this is a side effect Headache significantly worsened here with hypertensive urgency-now much improved today with better control blood pressure Also contributing is anxiety and severely elevated BP MRI brain obtained, no change in size of pituitary tumor, in fact, it has been stable for years CTA head here negative for aneurysm -control BP as above continue Tylenol and Mobic PRN (4) Pituitary tumor: present since 1979' no plans for surgery, just saw lisa Neurosurgeon in June MRI shows stable size 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, removal of tumor 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, 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 Continue testosterone topical, continue home hydrocortisone back on 20 mg in the morning and 10 mg in the afternoon and hold for elevated blood pressures (5) Aspiration into airway: speech therapy consulted, appreciate recommendations Repeat CXR much improved on 10/12 -converted Zosyn to po Augmentin and finish out 7 day course PCT elevated at 37-then decreased to 20 with antibiotics (6) Acute respiratory failure: due to pneumonia Now weaned off oxygen (7) Hypertension: As above with urgency continue ASA, meds as above (8) ACTH deficiency: Continue testosterone 20.20 mg / 125 g transdermal gel pump daily Restart home hydrocortisone and DCd IV Solu-Medrol Follows with endocrinology (9) HLD (hyperlipidemia): continue simvastatin 20 mg p.o. nightly (10) Anxiety: Seems to be exacerbated by hospitalization -Continue trazodone 150 mg p.o. daily, sertraline 200 mg p.o. daily buspirone 10 mg p.o. twice daily. With panic attacks at night now improved with addition of hydroxyzine-continue at home -continue hydroxyzine 10 mg p.o. every 6 hours as needed -Avoid benzodiazepines-history of opioid dependence (11) Chronic low back pain: Stable -Continue gabapentin 300 mg p.o. twice daily -made meloxicam prn given chronic kidney disease and hypertensive urgency- discussed with pt (12) Prostatic hypertrophy: Continue doxazosin 8 mg p.o. nightly, dutasteride 0.5 mg/tamsulosin 0.4 mg extended capsule p.o. nightly which was brought in from home. (13) DVT prophylaxis: SCDs, GERA ethele, ambulation Disposition-stable for dc t home Total Time Total Time Spent Total Time Spent (In Minutes): 35 min Total Time Includes: Examination of the Patient, Discharge Planning and Medication Reconciliation Discharge Plan Discharge Items Patient Disposition: Home - Self-Care Reason For Visit: SEVERE MCRAE, COUGH, ASPIRATION PNA Discharge Diagnosis: Hypertensive urgency, aspiration PNA, headache Condition on Discharge: Good Activity: Resume your previous activity Non-emergency contact: Primary Care Provider Call non-emergency contact if: you have any medication questions, your symptoms worsen, your pain is not controlled, your pain is worsening, your pain is unusual for you and your pain is concerning for you Follow-up/Referrals: Harish Tran III, MD [Primary Care Provider] - 10/19/19 1:45 pm (Please, follow up with Dr. Tran on SaturdayOctober 19 at 1:45 pm. *If you need to change this appointment, call the office at [phone].) Diet: Heart Healthy Addtl Attending Provider Instructions: You were admitted for a severe headache and aspiration pneumonia. Your blood pressures were severely elevated and your medications were adjusted to better control this. You were prescribed hydroxyzine to take as needed for anxiety. You can take the meloxicam NEEDED for pain and can talk to your doctor about increasing your Neurontin in the future to better control chronic pain. Follow up with your PCP within 1-2 weeks as scheduled for you. Stand-Alone Forms: My [facility] Medications and DC Order Prescriptions: New amoxicillin-pot clavulanate [Augmentin] 875-125 mg Tablet 1 tab PO BIDM Qty: 6 RF: 0 metoprolol succinate 100 mg tablet extended release 24 hr 100 mg PO BID Qty: 60 RF: 0 amlodipine 10 mg tablet 10 mg PO DAILY Qty: 30 RF: 0 hydroxyzine HCl 10 mg Tablet 10 mg PO Q6H PRN (Reason: anxiety) Qty: 30 RF: 0 acetaminophen [Mapap (acetaminophen)] 325 mg Tablet 650 mg PO Q4H PRN (Reason: pain) Qty: 30 RF: 0 Continued aspirin 81 mg tablet,delayed release (DR/EC) 81 mg PO QAM Qty: 30 RF: 0 calcium carbonate-vitamin D3 [Calcium 600 + D(3)] 600 mg(1,500mg) -200 unit tablet 1 tab PO BID Qty: 30 RF: 0 magnesium 250 mg tablet 250 mg PO QAM Qty: 30 RF: 0 dicyclomine 20 mg tablet 20 mg PO TID PRN (Reason: abdominal pain) 30 Days Qty: 90 RF: 5 dutasteride-tamsulosin [Yancy] 0.5-0.4 mg capsule, ER multiphase 24 hr 1 cap PO HS Qty: 90 RF: 3 sertraline [Zoloft] 100 mg tablet 200 mg PO DAILY RF: 0 testosterone [AndroGel] 20.25 mg/1.25 gram (1.62 %) gel in metered-dose pump 2 pump TOP DAILY Qty: 1 RF: 1 doxazosin [Cardura] 2 mg tablet 8 mg PO HS RF: 0 trazodone 150 mg tablet 150 mg PO DAILY RF: 0 simvastatin 20 mg Tablet 20 mg PO HS RF: 0 buspirone 10 mg tablet 10 mg PO BID RF: 0 docusate sodium [Colace] 100 mg Capsule 200 mg PO DAILY RF: 0 gabapentin 300 mg Capsule 300 mg PO BID RF: 0 lisinopril 40 mg Tablet 40 mg PO DAILY RF: 0 hydrocortisone 5 mg tablet 20 mg PO QAM RF: 0 multivitamin [Multiple Vitamins] Tablet 1 tab PO DAILY RF: 0 Changed meloxicam 15 mg Tablet 15 mg PO HS PRN (Reason: pain) Qty: 0 RF: 0 Discontinued metoprolol succinate [Toprol XL] 50 mg tablet extended release 24 hr 100 mg PO HS Qty: 180 RF: 3 Discharge Orders: Discharge Order (Routine); Ordered 10/14/19 Ordered By: Sameera Valiente Admission Data Admit Date/Time: 10/10/19 14:58 Attending Provider: Sameera Valiente Admit Provider: Magdalena Amaya Primary Care Provider: Harish Tran III Other Providers: Magdalena Amaya Coding Level of Care Code D/C Day Management >30 mins Diagnoses Hypertensive urgency I16.0 Aspiration pneumonia J69.0 Headache R51 Pituitary tumor D49.7 Aspiration into airway T17.908A Acute respiratory failure J96.00 Hypertension I10 ACTH deficiency E23.6 HLD (hyperlipidemia) E78.5 Anxiety F41.9 Chronic low back pain M54.5; G89.29 Prostatic hypertrophy N40.0 DVT prophylaxis Z29.9
== END 2019-10-14 18:15 | disposition home or self-care (01) | DRG 177 ==
LOC: ED 08:53 → SUATTDRO 14:58 → 2S 14:58

== ENCOUNTER 2024-06-30 11:52 | Inpatient (IN) ==
--- NOTE | 2024-06-30 12:46 | XRay Report ---
XR chest 1V portable CLINICAL HISTORY: Chest pain, nonspecific TECHNIQUE: Single frontal radiograph of the chest was obtained. Comparison: Comparison is made to chest radiograph 01/21/2024 FINDINGS: No lines and tubes are seen. Calcified aortic knob is seen. The lungs are clear. No evidence of pleur al effusion or pneumothorax. IMPRESSION: No acute chest disease. ACT 112: Negative or not required by law. Electronically signed by: Donald Fabian M.D. 06/30/2024 12:44 PM
[2024-06-30 12:52] LABS: Basophils # (auto) 0.05 K/uL (0.00-0.20); Basophils % (auto) 0.4 %; Eosinophils # (auto) 0.16 K/uL (0.00-0.50); Eosinophils % (auto) 1.2 %; Hematocrit (blood only) 39.9 % (42.0-52.0); Hemoglobin 13.9 g/dl (14.0-18.0); Immature Granulocytes # (auto) 0.05 K/uL (0.01-0.20); Immature Granulocytes % (auto) 0.4 %; Lymphocytes # (auto) 1.57 K/uL (1.20-3.40); Lymphocytes % (auto) 11.8 %; Mean Corpuscular Hemoglobin 32.2 pg (25.0-34.0); Mean Corpuscular Hgb Conc 34.8 g/dL (32.0-36.0); Mean Corpuscular Volume 92.4 fL (80.0-100.0); Mean Platelet Volume 10.7 fL (9.4-12.4); Monocytes # (auto) 0.71 K/uL (0.11-0.59); Monocytes % (auto) 5.3 %; Neutrophils # (auto) 10.81 K/uL (1.40-6.50); Neutrophils % (auto) 80.9 %; Platelet Count 155 K/uL (130-400); RDW Coefficient of Variation 13.2 % (11.5-14.5); RDW Standard Deviation 45.8 fL (36.4-46.3); Red Blood Count 4.32 M/uL (4.70-6.10); White Blood Count 13.35 K/ul (4.8-10.8)
--- NOTE | 2024-06-30 13:13 | Emergency Department Note ---
Impression & Plan NSTEMI (non-ST elevated myocardial infarction), Chest pain, Non-sustained ventricular tachycardia ED Provider Note NAME: PUJA GROSSMAN AGE: 84 SEX: Male INFORMANT: Patient ED PROVIDER(S): Bryant Peck MD CHIEF COMPLAINT: Chest pain PLAN: Disposition: Admitted Outpatient prescription management: none Referral: None MEDICAL DECISION MAKING: Patient present because of chest pain. ECG did not reveal any obvious ST elevation. Subtle nonspecific changes present compared to prior. He underwent blood testing and chest x-ray. CBC and CHEM panel are unremarkable. Patient does have a markedly elevated cardiac troponin concerning for non-ST elevation SD. Patient was given aspirin. IV heparin ordered. I did place a consultation with the [facility] hide salter as well as internal medicine. Discussed case with Dr. Rojas and he agreed with the heparin. In light of the patient's pain and borderline low blood pressures which precluded nitroglycerin he felt discussion with interventional cardiology was recommended. I did discuss case with Dr. Mcgregor. After evaluation by Dr. Bob Mcgregor did present to the emergency department. He felt the patient would be best served by cardiac catheterization and that he was taken emergently to the cardiac suite for further management. Care/management discussed with: survey manager Level of care consideration(s): After review of the information above and other included data, I feel the patient requires activation of care to admission Triage Nursing notes: reviewed and agree them. Vital Signs: reviewed and remarkable for no significant abnormalities Additional History obtained from: none Chronic Medical/Social Conditions affecting care: none Prior/ Outside/ External records reviewed: none Differential Diagnosis: Cardiac ischemia, aortic dissection, pulmonary embolism, pneumothorax, pneumonia, pericarditis, myocarditis, esophageal rupture, GERD, cholecystitis, pancreatitis, musculoskeletal, as well as other pathologies. Diagnostics, independently interpreted by me: ECG: Twelve-lead ECG was sinus bradycardia at 40/min. There is less than [address] depression in V2 and half millimeter of ST elevation in in the lead III and lead II when compared to ECG of 2020. Cardiac Monitoring: Cardiac monitoring ordered by me: The patient was placed on continuous cardiac monitoring and observed. It revealed a sinus bradycardia at 50 bpm. Patient did have several episodes of nonsustained ventricular tachycardia less than 12 beats. Medical decision rules: none Imaging studies: Chest x-ray. Findings: A chest x-ray was performed and revealed no pneumothorax, effusion, infiltrate, pulmonary edema, free air under the diaphragm, or wide mediastinum. Impression: No acute disease. HPI: 84 year old Male arrives for evaluation of chest pain. This started last night and is constant. The patient also notes the following associated symptoms, none. The patient has taken no medication for relieving factors. Current pain is rated as 9/10. No change with exertion or eating. Pt denies LOC, headache, fevers, chills, diaphoresis, visual changes, neck pain, breathing difficulties, nausea, vomiting, abdominal pain, back pain, melena, hematochezia, urinary symptoms, numbness, weakness, lymphadenopathy, rash, or other complaints. . PAST MEDICAL HISTORY: See Below, HTN PAST SURGICAL HISTORY: See Below, SOCIAL HISTORY: See Below, HOME MEDICATIONS: See Below ALLERGIES: See Below VITALS: See Below PHYSICAL EXAMINATION: GENERAL: Awake, alert, well-appearing, in no distress HENT: Normocephalic, atraumatic. Oropharynx unremarkable. EYES: Normal conjunctiva. Sclera non-icteric. NECK: Inspection normal. Non-tender. Supple. No nuchal rigidity. FROM. No masses. RESPIRATORY: Clear to auscultation. No wheezes. No rales. Normal respiratory effort. CARDIAC: Normal rate. Normal rhythm. No murmurs. No rubs. Extremities warm and well perfused. Pulses equal. No JVD. GI: Soft, non-distended. No tenderness to palpation. No rebound or guarding. No masses. RECTAL: Deferred. MUSCULOSKELETAL: Atraumatic. Chest examination reveals no tenderness. The back is symmetrical on inspection without obvious abnormality. There is no CVA tenderness to palpation. No joint edema. LOWER EXTREMITIES: Calves are equal size bilaterally and non-tender. No edema. No discoloration. NEURO: Normal sensorium. No sensory or motor deficits noted. SKIN: No rash or jaundice noted. PROCEDURES: none CRITICAL CARE: I have personally spent 45 minutes of critical care time in the direct management of this patient. This includes bedside care, interpretation of diagnostic studies, and testing, discussion with consultants, patient, and family members, and other required patient management activities. These minutes are in excess of all separately billable procedures. OBSERVATION NOTE: none Past Med/Surg History Problem List (Updated 06/30/24 @ 22:21 by Bryant Peck MD) Non-sustained ventricular tachycardia (Acute) NSTEMI (non-ST elevated myocardial infarction) (Acute) ACS (acute coronary syndrome) STEMI (ST elevation myocardial infarction) Chest pain (Acute) Trochanteric bursitis of right hip Osteoarthritis of finger Strain of left knee Vitamin D deficiency Blind left eye History of pituitary adenoma MCL sprain of left knee Chronic kidney disease, stage III (moderate) Neck Pain Dyslipidemia Osteopenia Prostatic hypertrophy Chronic low back pain Anxiety Hypertension (Acute) ACTH deficiency (Chronic) Panhypopituitarism (Chronic) Anemia (Chronic) 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 TORRES Deep vein thrombosis RLE - 3 YEARS AGO - CAUSE? - TREATED WITH BLOOD THINNERS. BPH (benign prostatic hyperplasia) IBS (irritable bowel syndrome) GERD (gastroesophageal reflux disease) Hyperthyroidism History of melanoma Hearing deficit BL MCRAE Hypertension Hyperlipidemia Lumbar herniated disc MULTIPLE HLD (hyperlipidemia) CKD (chronic kidney disease) Opioid dependence Surgical History Hx laparoscopic cholecystectomy (06/03/19) Laparoscopic Cholecystectomy Dr. 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 Status post trigger finger release History of esophagogastroduodenoscopy (EGD) 04/20/2019. MAC no issues. History of colonoscopy History of melanoma excision CHEST - W/ SKIN GRAFTING. (LEFT GROIN DONOR SITE) Family History Sister Family hx of colon cancer Father Tobacco use Coronary heart disease Mother Diverticulosis of intestine Sister Ovarian cancer Colon cancer Grandfather Cancer Aunt Cancer Uncle Cancer Grandmother (Maternal) Cancer Other No significant family history Social History Smoking Status: Never smoker Second Hand Exposure: No; Do You Dip or Chew Tobacco: No; Hx Alcohol Use: No Hx Substance Use: No Preferred Language: Divehi Communication Ability: Effective Visual Impairment: No Limitations Chicken Dresser Required: No Beliefs That Will Affect Care: None Current Living Situation: Spouse Other Information That Helps Us Care for You: No Feels Safe at Home: Yes Safety Concerns: Feels Safe At This Time Assistive Devices: Glasses and Hearing Aid - Bilateral Allergies Allergies Allergy/AdvReac Type Severity Reaction Status Date / Time No Known Allergies Allergy Verified 06/30/24 10:54 Home Meds Home Medications Medication Instructions Recorded Confirmed multivitamin (Multiple Vitamins 1 tab PO QAM 05/27/19 06/30/24 tablet) lisinopril 40 mg tablet 40 mg PO QAM 10/10/19 06/30/24 simvastatin 20 mg tablet 20 mg PO HS 10/10/19 06/30/24 trazodone 150 mg tablet 150 mg PO HS 10/10/19 06/30/24 ascorbic acid (vitamin C) 1,000 mg 500 mg PO QAM 03/18/20 06/30/24 tablet ferrous sulfate 325 mg (65 mg 325 mg PO QAM PRN anemia 03/18/20 06/30/24 iron) tablet (Feosol) chlorthalidone 25 mg tablet 25 mg PO DAILY 11/02/21 06/30/24 dicyclomine 20 mg tablet 20 mg PO TID abdominal pain 11/02/21 06/30/24 dutasteride 0.5 mg-tamsulosin ER 2 cap PO HS 11/02/21 06/30/24 0.4 mg capsule ext.release 24hr mphas (Yancy) gabapentin 300 mg capsule 300 mg PO BID 11/02/21 06/30/24 bumetanide 1 mg tablet 1 mg PO QAM 01/04/22 06/30/24 doxazosin 4 mg tablet 8 mg PO HS 01/04/22 06/30/24 metoprolol succinate 100 mg 100 mg PO BID 01/04/22 06/30/24 tablet,extended release 24 hr omeprazole 20 mg capsule,delayed 20 mg PO DAILYBB 01/04/22 06/30/24 release gabapentin 100 mg capsule 100 mg PO HS 01/03/23 06/30/24 sertraline 100 mg tablet (Zoloft) 200 mg PO QAM 01/03/23 06/30/24 hydrocortisone 5 mg tablet 10 mg PO HS 06/30/24 06/30/24 hydrocortisone 5 mg tablet 20 mg PO DAILY 06/30/24 06/30/24 methimazole 5 mg tablet 5 mg PO DAILY 06/30/24 06/30/24 potassium chloride 20 mEq 20 meq PO DAILY 06/30/24 06/30/24 tablet,extended release sucralfate 1 gram tablet 1 g PO AC 06/30/24 06/30/24 Previous Rx's Medication Instructions Recorded aspirin 81 mg tablet,delayed 81 mg PO QAM #30 tabs 02/23/19 release calcium 600 mg (as 1 tab PO BID #30 tabs 02/23/19 carbonate)-vitamin D3 5 mcg (200 unit) tablet (Calcium 600 + D(3)) magnesium 250 mg tablet 250 mg PO QAM #30 tabs 02/23/19 hydroxyzine HCl 10 mg tablet 10 mg PO Q6H PRN anxiety #30 tabs 10/14/19 ondansetron 4 mg disintegrating 4 mg PO Q6H PRN nausea and 01/04/22 tablet vomiting #14 tabs testosterone 2 pump topical DAILY ICD 10 code - 12/16/23 E29.1 #225 grams Results & Data (ED) Vital Signs Vital Signs - 24 hr 06/30/24 11:52 06/30/24 11:53 06/30/24 12:19 Temperature 36.9 C Temperature Source Temporal Artery Scan Pulse Rate 61 51 L Pulse Rate [Right Finger] 52 L Pulse Rhythm Pulse Rhythm [Right Finger] Regular Pulse Strength [Right Finger] Normal Respiratory Rate 20 16 Respiratory Effort / Characteristics Non-Labored Spontaneous Non-Labored Respiratory Depth Normal Normal Respiratory Pattern Regular Blood Pressure 96/55 L Blood Pressure [Right Arm] 121/53 L Blood Pressure Mean 68 Blood Pressure Mean [Right Arm] 75 Blood Pressure Position [Right Arm] Lying Pulse Oximetry 96 95 Oxygen Delivery Method Room Air Room Air Sepsis Recent Fever Within 48 Hours No Sepsis New/Unexplained Change in Mental Status No Sepsis Action Taken by Nursing No Action Required 06/30/24 12:54 06/30/24 13:27 06/30/24 14:13 Temperature Temperature Source Pulse Rate 51 L Pulse Rate [Right Finger] 51 L 50 L Pulse Rhythm Regular Pulse Rhythm [Right Finger] Regular Pulse Strength [Right Finger] Normal Respiratory Rate 16 17 16 Respiratory Effort / Characteristics Non-Labored Spontaneous Non-Labored Spontaneous Respiratory Depth Normal Normal Respiratory Pattern Regular Blood Pressure Blood Pressure [Right Arm] 113/67 95/54 L Blood Pressure Mean Blood Pressure Mean [Right Arm] 82 67 Blood Pressure Position [Right Arm] Sitting Pulse Oximetry 96 95 97 Oxygen Delivery Method Room Air Room Air Room Air Sepsis Recent Fever Within 48 Hours Sepsis New/Unexplained Change in Mental Status Sepsis Action Taken by Nursing Laboratory Data 06/30/24 12:15 06/30/24 12:15 Lab Results 06/30/24 06/30/24 Range/Units 12:15 13:56 WBC 13.35 H (4.8-10.8) K/ul RBC 4.32 L (4.70-6.10) M/uL Hgb 13.9 L (14.0-18.0) g/dl Hct 39.9 L (42.0-52.0) % MCV 92.4 (80.0-100.0) fL MCH 32.2 (25.0-34.0) pg MCHC 34.8 (32.0-36.0) g/dL RDW Std Deviation 45.8 (36.4-46.3) fL RDW Coeff of Mehnaz 13.2 (11.5-14.5) % Plt Count 155 (130-400) K/uL MPV 10.7 (9.4-12.4) fL Immature Gran % (Auto) 0.4 % Neut % (Auto) 80.9 % Lymph % (Auto) 11.8 % [place] % (Auto) 5.3 % Eos % (Auto) 1.2 % Baso % (Auto) 0.4 % Neut # (Auto) 10.81 H (1.40-6.50) K/uL Lymph # (Auto) 1.57 (1.20-3.40) K/uL [place] # (Auto) 0.71 H (0.11-0.59) K/uL Eos # (Auto) 0.16 (0.00-0.50) K/uL Baso # (Auto) 0.05 (0.00-0.20) K/uL Immature Gran # (Auto) 0.05 (0.01-0.20) K/uL Sodium 136 (136-145) mmol/L Potassium 4.4 (3.5-5.1) mmol/L Chloride 100 (98-107) mmol/L Carbon Dioxide 30 (21-32) mmol/L Anion Gap 6 (3-11) BUN 30 H (6-23) mg/dl Creatinine 1.48 H (0.6-1.4) mg/dl Est Cr Clr Drug Dosing 39.5 ml/min eGFR 46.65 BUN/Creatinine Ratio 20.3 H (10-20) Glucose 104 H (70-99(Fasting)) mg/dl Calcium 9.1 (8.6-10.3) mg/dl Magnesium 2.0 (1.7-2.4) mg/dl Total Bilirubin 0.4 (0.2-1.0) mg/dl AST 76 H (13-39) U/L ALT 24 (7-52) U/L Alkaline Phosphatase 60 (34-104) U/L Troponin I High Sens 7182.7 H* 08501.1 H* D (0-20) pg/ml Total Protein 6.4 (6.0-8.3) gm/dl Albumin 3.8 (3.4-5.0) gm/dl Globulin 2.6 (2.5-4.0) gm/dl Albumin/Globulin Ratio 1.5 (0.9-2) Lipase 31 (11-82) U/L Administered Medications Atorvastatin Calcium (Atorvastatin 40 Mg Tab) 40 mg PO QAM TOD Stop: 07/30/24 17:14 Last Admin: 06/30/24 20:05 Dose: 40 mg Documented By: JANET Calcium/Vitamin D (Calcium 600mg + Vit D 400 Iu Tab) 1 tab PO BID TOD Stop: 07/30/24 20:59 Last Admin: 06/30/24 20:06 Dose: 1 tab Documented By: JANET Dicyclomine HCl (Dicyclomine Hcl 20 Mg Tab) 20 mg PO TID TOD Stop: 07/30/24 20:59 Last Admin: 06/30/24 20:06 Dose: 20 mg Documented By: JANET Gabapentin (Gabapentin 100 Mg Cap) 100 mg PO 1400 TOD Stop: 07/31/24 13:59 Last Admin: 06/30/24 20:08 Dose: 100 mg Documented By: JANET Gabapentin (Gabapentin 300 Mg Cap) 300 mg PO BID TOD Stop: 07/30/24 20:59 Last Admin: 06/30/24 20:07 Dose: 300 mg Documented By: JANET Hydrocortisone (Hydrocortisone 10 Mg Tab) 10 mg PO HS TOD Stop: 07/30/24 20:59 Last Admin: 06/30/24 20:07 Dose: 10 mg Documented By: JANET Metoprolol Succinate (Metoprolol Succ 50mg Ext Rel Tab) 100 mg PO BID TOD Stop: 07/30/24 20:59 Last Admin: 06/30/24 20:07 Dose: Not Given Documented By: JANET Sucralfate (Sucralfate 1 Gm Tab) 1 gm PO AC TOD Stop: 07/30/24 17:31 Last Admin: 06/30/24 20:06 Dose: 1 gm Documented By: JANET Ticagrelor (Ticagrelor 90 Mg Tab) 90 mg PO BID TOD Stop: 07/30/24 20:59 Last Admin: 06/30/24 20:08 Dose: 90 mg Documented By: JANET Trazodone HCl (Trazodone Hcl 50 Mg Tab) 150 mg PO HS TOD Stop: 07/30/24 20:59 Last Admin: 06/30/24 20:07 Dose: 150 mg Documented By: JANET Discontinued Medications Aspirin (Aspirin Chew 324 Mg) 324 mg PO NOW STA Stop: 06/30/24 13:54 Last Admin: 06/30/24 14:03 Dose: 324 mg Documented By: JARAD Fentanyl Citrate (Fentanyl Citrate Pf 100 Mcg/2 Ml Vial) Confirm Administered Dose 100 mcg .ROUTE .STK-MED ONE Stop: 06/30/24 15:00 Last Increment: 06/30/24 16:54 Dose: 50 mcg Documented By: JULISA Heparin Sodium (Porcine) (Heparin Sod (Porcine) 1000 Unit/Ml) 6,000 units IV NOW STA Stop: 06/30/24 14:21 Last Admin: 06/30/24 14:43 Dose: 6,000 units Documented By: WENDY Co-signed By: JARAD Heparin Sodium (Porcine) (Heparin (Porcine) 1000 Unit/Ml 10 Ml (Gasket Supervisor Use Only)) Confirm Administered Dose 10,000 units .ROUTE .STK-MED ONE Stop: 06/30/24 14:59 Last Admin: 06/30/24 16:54 Dose: 3,500 units Documented By: AAF Heparin Sodium/Sodium Chloride (Heparin In Nss Infusion 1000 Unit/500 Ml (2 U/Ml) Bag) Confirm Administered Dose 3,000 units IV .STK-MED ONE Stop: 06/30/24 15:00 Last Admin: 06/30/24 16:55 Dose: 3,000 units Documented By: AAF Hydromorphone HCl (Hydromorphone Inj 0.5 Mg/0.5 Ml Syr) 0.25 mg IV Q15M PRN PRN Reason: Pain Stop: 07/14/24 13:17 Last Admin: 06/30/24 13:27 Dose: 0.25 mg Documented By: WENDY Heparin Sodium/Dextrose (Heparin Sodium/Dextrose) 25,000 units in 500 mls @ 27 mls/hr IV .[id number]; Protocol Stop: 07/30/24 14:44 Last Admin: 06/30/24 14:45 Dose: 1,350 units/hr, 27 mls/hr Documented By: WENDY Co-signed By: JARAD Influenza Virus Vacc Triv Types A&B (Influenza Vacc [id number](65y+)/Pf (Iiv3) 0.5ml Syr) 0.5 ml IM .ONCE ONE Stop: 06/30/24 18:48 Last Admin: 06/30/24 20:11 Dose: Not Given Documented By: JANET Ioversol (Optiray 350) Confirm Administered Dose 1 ml .ROUTE .STK-MED ONE Stop: 06/30/24 15:00 Last Admin: 06/30/24 16:55 Dose: 185 ml Documented By: AAF Midazolam HCl (Midazolam Hcl 1 Mg/Ml 2ml Vial) Confirm Administered Dose 2 mg .ROUTE .STK-MED ONE Stop: 06/30/24 14:59 Last Admin: 06/30/24 16:54 Dose: 2 mg Documented By: AAF Nicardipine HCl (Nicardipine Hcl Inj 2.5 Mg/Ml 10 Ml Amp) Confirm Administered Dose 25 mg .ROUTE .STK-MED ONE Stop: 06/30/24 15:00 Last Admin: 06/30/24 16:55 Dose: 25 mg Documented By: AAF Nitroglycerin/Dextrose (Nitroglycerin/D5w 100mcg/Ml 20ml Syr) Confirm Administered Dose 2,000 mcg .ROUTE .STK-MED ONE Stop: 06/30/24 15:00 Last Admin: 06/30/24 16:56 Dose: 2,000 mcg Documented By: JULISA Ondansetron HCl (Ondansetron Inj 2 Mg/Ml 2 Ml Vial) 4 mg IV NOW STA Stop: 06/30/24 13:19 Last Admin: 06/30/24 13:27 Dose: 4 mg Documented By: WENDY Ticagrelor (Ticagrelor 90 Mg Tab) Confirm Administered Dose 180 mg .ROUTE .STK- MED ONE Stop: 06/30/24 16:47 Last Admin: 06/30/24 16:56 Dose: 180 mg Documented By: JÚNIORF Imaging Data Radiologist's Impression: Chest X-Ray 06/30/24 11:58 XR chest 1V portable CLINICAL HISTORY: Chest pain, nonspecific TECHNIQUE: Single frontal radiograph of the chest was obtained. Comparison: Comparison is made to chest radiograph 01/21/2024 FINDINGS: No lines and tubes are seen. Calcified aortic knob is seen. The lungs are clear. No evidence of pleural effusion or pneumothorax. IMPRESSION: No acute chest disease. ACT 112: Negative or not required by law. Electronically signed by: Donald Fabian M.D. 06/30/2024 12:44 PM Discharge Plan Visit Data Chief Complaint: Chest Pain Stated Complaint: CHEST PAIN ED Provider: Bryant Peck Discharge Problem: NSTEMI (non-ST elevated myocardial infarction), Chest pain, Non-sustained ventricular tachycardia Discharge Instructions Interventions: ED Discharge Assessment Last Done: 06/30/24 15:04
[2024-06-30] MEDS: ONDANSETRON INJ 2 MG/ML 2 ML VIAL IV STA (13:27)
[2024-06-30] MEDS: HYDROmorphone INJ 0.5 MG/0.5 ML SYR IV PRN (13:27)
[2024-06-30 13:31] LABS: Albumin Globulin Ratio 1.5 (0.9-2); Albumin Level 3.8 gm/dl (3.4-5.0); BUN Creatinine Ratio 20.3 (10-20); Bilirubin,Total 0.4 mg/dl (0.2-1.0); Calcium 9.1 mg/dl (8.6-10.3); Creatinine Clr Calc Pharmacy 39.5 ml/min; Globulin 2.6 gm/dl (2.5-4.0); Potassium 4.4 mmol/L (3.5-5.1); Total Protein 6.4 gm/dl (6.0-8.3)
[2024-06-30 13:42] LABS: Troponin I High Sensitivity 7182.7 pg/ml (0-20)
[2024-06-30] MEDS: ASPIRIN CHEW 324 MG PO STA (14:03)
[2024-06-30] MEDS ORDERED: Heparin IV Adult Wt-Based Standard w/ INITIAL Bolus Protocol IV STA (14:18)
--- NOTE | 2024-06-30 14:26 | History & Physical Report ---
Date of Service June 30, 2024 Assessment & Plan (1) ACS (acute coronary syndrome): (2) NSTEMI (non-ST elevated myocardial infarction): (3) HTN (hypertension): (4) Hyperlipidemia: (5) CKD (chronic kidney disease): (6) BPH (benign prostatic hyperplasia): (7) Panhypopituitarism: Plan This is an 84-year-old male who has significant past medical history of HTN, hyperthyroidism, hypotestosteronemia, chronic sinusitis, IBS, BPH, CKD stage III, RLS, history of pituitary adenoma s/p resection on longterm hydrocortisone therapy, blindness of the left eye, history of malignant melanoma who presents to ED secondary to chest pain. ACS/NSTEMI pt presented to substernal chest pain, borderline hypotensive/bradycardic and troponin 7k with repeat 2hr trop 11k Seen and evaluated by cardiology and interventional and pt is going to emergent cardiac cath - suspect inferior wall post MO obtain stat echo keep NPO, started on IV Heparin trend trops, a1c, lipid panel in a.m. further recommendations post cardiac cath Pt is S/P Cardiac Cath with successful PCI of RCA with 3 overlapping ANJANA and Successful PCI of the mid circumflex with 1 ANJANA, severe multivessel CAD Recommend DAPT ASA and brilinta 90mg bid for 1-2 years, GDMT with ASA, statin, metoprolol and lisinopril as BP allows Imdur added per Ddr. Dae HTN: chronic on bumex, chlorthalidone, lisinopril and metoprolol. hold chlorthalidone for now HLD: chronic, stable on statin, continue for now with lipid panel in a.m. 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 Hyperthyroidism - continue methimazole DVT ppx: IV heparin FULL CODE PCP: [facility] Dispo: admit to PCU pending cardiac cath recommendations Pt was seen and examined in collaboration with Dr. Moncada, please see addendum I spent a total of 61 min minutes reviewing notes, outpatient records, labs, medication, coordinating, documenting and providing care for this patient excluding time spent in the performance of separately billed services. History of Present Illness Chief Complaint: Chest pain x 1 day. Primary Care Provider: Shalom Lieberman MD This is an 84-year-old male who has significant past medical history of HTN, hyperthyroidism, hypotestosteronemia, chronic sinusitis, IBS, BPH, CKD stage III, RLS, history of pituitary adenoma s/p resection on longterm hydrocortisone therapy, blindness of the left eye, history of malignant melanoma who presents t o ED secondary to chest pain. Pt reports chest pain started last evening. Chest pain is substernal and nonradiating. The pain has mostly been constant as nothing has made it better or worse. On arrival his chest pain was 9/10. He was given a full dose ASA and a small dose of IV dilaudid in ED which eased the pain, but it has not completely resolved. On initial presentation troponin was 7182 and 2hr trop was 07610.1 pg/ml. Initial ecg did revealed nonspecific inferior lead changes but no overt stemi. He was seen and evaluated by cardiology who is recommending emergent cardiac cath due to concern for late MO presentation. He denies tobacco or alcohol use. Allergies Allergy/AdvReac Type Severity Reaction Status Date / Time No Known Allergies Allergy Verified 06/30/24 10:54 Home Medications Medication Instructions Recorded Confirmed Type aspirin 81 mg tablet,delayed 81 mg PO QAM #30 tabs 02/23/19 06/30/24 Rx release calcium 600 mg (as 1 tab PO BID #30 tabs 02/23/19 06/30/24 Rx carbonate)-vitamin D3 5 mcg (200 unit) tablet (Calcium 600 + D(3)) magnesium 250 mg tablet 250 mg PO QAM #30 tabs 02/23/19 06/30/24 Rx multivitamin (Multiple Vitamins 1 tab PO QAM 05/27/19 06/30/24 History tablet) lisinopril 40 mg tablet 40 mg PO QAM 10/10/19 06/30/24 History simvastatin 20 mg tablet 20 mg PO HS 10/10/19 06/30/24 History trazodone 150 mg tablet 150 mg PO HS 10/10/19 06/30/24 History hydroxyzine HCl 10 mg tablet 10 mg PO Q6H PRN anxiety #30 tabs 10/14/19 06/30/24 Rx ascorbic acid (vitamin C) 1,000 mg 500 mg PO QAM 03/18/20 06/30/24 History tablet ferrous sulfate 325 mg (65 mg 325 mg PO QAM PRN anemia 03/18/20 06/30/24 History iron) tablet (Feosol) chlorthalidone 25 mg tablet 25 mg PO DAILY 11/02/21 06/30/24 History dicyclomine 20 mg tablet 20 mg PO TID abdominal pain 11/02/21 06/30/24 History dutasteride 0.5 mg-tamsulosin ER 2 cap PO HS 11/02/21 06/30/24 History 0.4 mg capsule ext.release 24hr mphas (Yancy) gabapentin 300 mg capsule 300 mg PO BID 11/02/21 06/30/24 History bumetanide 1 mg tablet 1 mg PO QAM 01/04/22 06/30/24 History doxazosin 4 mg tablet 8 mg PO HS 01/04/22 06/30/24 History metoprolol succinate 100 mg 100 mg PO BID 01/04/22 06/30/24 History tablet,extended release 24 hr omeprazole 20 mg capsule,delayed 20 mg PO DAILYBB 01/04/22 06/30/24 History release ondansetron 4 mg disintegrating 4 mg PO Q6H PRN nausea and 01/04/22 06/30/24 Rx tablet vomiting #14 tabs gabapentin 100 mg capsule 100 mg PO HS 01/03/23 06/30/24 History sertraline 100 mg tablet (Zoloft) 200 mg PO QAM 01/03/23 06/30/24 History testosterone 2 pump topical DAILY ICD 10 code - 12/16/23 06/30/24 Rx E29.1 #225 grams hydrocortisone 5 mg tablet 10 mg PO HS 06/30/24 06/30/24 History hydrocortisone 5 mg tablet 20 mg PO DAILY 06/30/24 06/30/24 History methimazole 5 mg tablet 5 mg PO DAILY 06/30/24 06/30/24 History potassium chloride 20 mEq 20 meq PO DAILY 06/30/24 06/30/24 History tablet,extended release sucralfate 1 gram tablet 1 g PO AC 06/30/24 06/30/24 History Past Med/Surg History Problem List (Updated 06/30/24 @ 15:21 by Carolann Smith PA-C) NSTEMI (non-ST elevated myocardial infarction) ACS (acute coronary syndrome) STEMI (ST elevation myocardial infarction) Chest pain (Acute) Trochanteric bursitis of right hip Osteoarthritis of finger Strain of left knee Vitamin D deficiency Blind left eye History of pituitary adenoma MCL sprain of left knee Chronic kidney disease, stage III (moderate) Neck Pain Dyslipidemia Osteopenia Prostatic hypertrophy Chronic low back pain Anxiety Hypertension (Acute) ACTH deficiency (Chronic) Panhypopituitarism (Chronic) Anemia (Chronic) 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 TORRES Deep vein thrombosis RLE - 3 YEARS AGO - CAUSE? - TREATED WITH BLOOD THINNERS. BPH (benign prostatic hyperplasia) IBS (irritable bowel syndrome) GERD (gastroesophageal reflux disease) Hyperthyroidism History of melanoma Hearing deficit BL MCRAE Hypertension Hyperlipidemia Lumbar herniated disc MULTIPLE HLD (hyperlipidemia) CKD (chronic kidney disease) Opioid dependence Surgical History Hx laparoscopic cholecystectomy (06/03/19) Laparoscopic Cholecystectomy Dr. 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 Status post trigger finger release History of esophagogastroduodenoscopy (EGD) 04/20/2019. MAC no issues. History of colonoscopy History of melanoma excision CHEST - W/ SKIN GRAFTING. (LEFT GROIN DONOR SITE) Family History Sister Family hx of colon cancer Father Tobacco use Coronary heart disease Mother Diverticulosis of intestine Sister Ovarian cancer Colon cancer Grandfather Cancer Aunt Cancer Uncle Cancer Grandmother (Maternal) Cancer Other No significant family history Social History Smoking Status: Never smoker Second Hand Exposure: No; Do You Dip or Chew Tobacco: No; Hx Alcohol Use: No Hx Substance Use: No Preferred Language: Grenadian Communication Ability: Effective Visual Impairment: No Limitations Rehab Director Occupational Therapist Required: No Beliefs That Will Affect Care: None Current Living Situation: Spouse Other Information That Helps Us Care for You: No Feels Safe at Home: Yes Safety Concerns: Feels Safe At This Time Assistive Devices: Glasses and Hearing Aid - Bilateral Review of Systems Review of Systems: All systems reviewed & are unremarkable except as noted in HPI & below Physical Exam Physical Exam: Constitutional: WD/WN, vitals as above, NAD, sitting up in bed, pleasant, conversing easily Head: Normocephalic, Atraumatic Eyes: PERRL, conjunctivae normal, anicteric sclerae ENMT: external ear and nose normal, oropharynx normal Neck: trachea midline, no thyromegaly normal visual inspection Respiratory: normal respiratory effort no audible w/r/r Cardiovascular: RRR Chest: normal inspection of chest Abdomen: SNTND+BS Musculoskeletal: AROM x 4 Skin: no rashes, warm and dry normal turgor Neurologic: no face palsy, no dysarthria CN's II-XI intact bilaterally and moves all extremities Psychiatric: A+Ox3, euthymic affect Results & Data Results & Data Vital Signs (Past 12 Hours) Vital Signs Temp Pulse Pulse Resp BP BP Pulse Ox 06/30/24 14:13 50 L 16 95/54 L 97 06/30/24 13:27 51 L 17 113/67 95 06/30/24 12:54 51 L 16 96 06/30/24 12:19 51 L 06/30/24 11:53 36.9 C 61 16 96/55 L 95 06/30/24 11:52 52 L 20 121/53 L 96 O2 Del Method 06/30/24 14:13 Room Air 06/30/24 13:27 Room Air 06/30/24 12:54 Room Air 06/30/24 12:19 06/30/24 11:53 Room Air 06/30/24 11:52 Room Air Laboratory Results I have independently reviewed and interpreted patient's admitting labs including CBC, CMP, mag, lipase and troponin. Diagnostic Findings Chest X-Ray 06/30/24 11:58 XR chest 1V portable CLINICAL HISTORY: Chest pain, nonspecific TECHNIQUE: Single frontal radiograph of the chest was obtained. Comparison: Comparison is made to chest radiograph 01/21/2024 FINDINGS: No lines and tubes are seen. Calcified aortic knob is seen. The lungs are clear. No evidence of pleural effusion or pneumothorax. IMPRESSION: No acute chest disease. ACT 112: Negative or not required by law. Electronically signed by: Donald Fabian M.D. 06/30/2024 12:44 PM Medications Administered Medication List Hydromorphone HCl (Hydromorphone Inj 0.5 Mg/0.5 Ml Syr) 0.25 mg IV Q15M PRN PRN Reason: Pain Stop: 07/14/24 13:17 Last Admin: 06/30/24 13:27 Dose: 0.25 mg Documented By: WENDY Discontinued Medications Aspirin (Aspirin Chew 324 Mg) 324 mg PO NOW STA Stop: 06/30/24 13:54 Last Admin: 06/30/24 14:03 Dose: 324 mg Documented By: JARAD Ondansetron HCl (Ondansetron Inj 2 Mg/Ml 2 Ml Vial) 4 mg IV NOW STA Stop: 06/30/24 13:19 Last Admin: 06/30/24 13:27 Dose: 4 mg Documented By: WENDY ECG Additional Comments: I have independently reviewed and interpreted patient's admitting EKG which revealed: SB 51bpm, nonspecific ST wave changes COVID-19 Results Results COVID-19 Adm Lab Results: RBC 4.32 M/uL (4.70-6.10) L 06/30/24 WBC 13.35 K/ul (4.8-10.8) H 06/30/24 Hgb 13.9 g/dl (14.0-18.0) L 06/30/24 Hct 39.9 % (42.0-52.0) L 06/30/24 Plt Count 155 K/uL (130-400) 06/30/24 Neutrophils (%) (Auto) 80.9 % 06/30/24 Lymphocytes (%) (Auto) 11.8 % 06/30/24 Monocytes # (Auto) 0.71 K/uL (0.11-0.59) H 06/30/24 Eosinophils # (Auto) 0.16 K/uL (0.00-0.50) 06/30/24 Immature Granulocyte % (Auto) 0.4 % 06/30/24 Neutrophils # (Auto) 10.81 K/uL (1.40-6.50) H 06/30/24 Lymphocytes # (Auto) 1.57 K/uL (1.20-3.40) 06/30/24 Monocytes # (Auto) 0.71 K/uL (0.11-0.59) H 06/30/24 Eosinophils # (Auto) 0.16 K/uL (0.00-0.50) 06/30/24 Basophils # (Auto) 0.05 K/uL (0.00-0.20) 06/30/24 Immature Granulocyte # (Auto) 0.05 K/uL (0.01-0.20) 4 Na 136 mmol/L (136-145) 06/30/24 K 4.4 mmol/L (3.5-5.1) 06/30/24 Cl 100 mmol/L (98-107) 06/30/24 CO2 30 mmol/L (21-32) 06/30/24 Anion Gap 6 (3-11) 06/30/24 BUN 30 mg/dl (6-23) H 06/30/24 Creatinine 1.48 mg/dl (0.6-1.4) H 06/30/24 BUN/Creatinine Ratio 20.3 (10-20) H 06/30/24 Glucose Level 104 mg/dl (70-99(Fasting)) H 06/30/24 Ca 9.1 mg/dl (8.6-10.3) 06/30/24 Total Bilirubin 0.4 mg/dl (0.2-1.0) 06/30/24 AST/SGOT 76 U/L (13-39) H 06/30/24 ALT/SGPT 24 U/L (7-52) 06/30/24 Alkaline Phosphatase 60 U/L (34-104) 06/30/24 Total Protein 6.4 gm/dl (6.0-8.3) 06/30/24 Albumin 3.8 gm/dl (3.4-5.0) 06/30/24 Globulin 2.6 gm/dl (2.5-4.0) 06/30/24 Albumin/Globulin Ratio 1.5 (0.9-2) 06/30/24 Chest X-Ray 06/30/24 Code Status & VTE Plan Code Status FULL CODE VTE Prophylaxis Plan VTE Prophylaxis will be ordered: No Supervising Physician Co-Signing Physician Notes Kai Wilkerson is an 84-year-old male who has significant past medical history of HTN, hyperthyroidism, hypotestosteronemia, chronic sinusitis, IBS, BPH, CKD stage III, RLS, history of pituitary adenoma s/p resection on longterm hydrocortisone therapy, blindness OS and history of malignant melanoma. He presents today to the ED with CP(9/10) since last evening. In the ED his troponin was > 7k. His EKG showed some subtle inferior changes. 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 He has multivessel CAD. He is S/P stent intervention as above. Chart and data reviewed. General- adult male seen at bedside. His spouse is present, cardiology team is present as well Head- atraumatic Eyes- PERRL, EOMI, anicteric ENT- oropharynx clear Neck- supple, no JVD, no adenopathy, no thyromegaly; carotids +2/2, no bruits appreciated Lungs- clear to auscultation and percussion Heart- regular rhythm; no murmur, no gallop, no rub appreciated Abdomen- normal bowel sounds, soft, nontender, no masses or hepatosplenomegaly Extremities- no pretibial edema, no calf tenderness; peripheral pulses intact Neuro- alert, oriented x 3; PERRL, EOMI; no facial palsy; no dysarthria; motor 5/5 bilaterally; no cogwheel rigidity; patellar DTRs +2/2; toes downgoing bilaterally; finger to nose intact bilaterally Skin- warm & dry I agree with the assessment and plan by the DEL and cardiology team. Will continue with cardiology recommendations. A total of 40 minutes spent in care coordination for this patient.
[2024-06-30] MEDS ORDERED: HEPARIN SOD (PORCINE) 1000 UNIT/ML IV ONE (14:34)
--- NOTE | 2024-06-30 14:35 | Cardiology Progress Note ---
Date of Service June 30, 2024 Assessment & Plan (1) Chest pain: (2) STEMI (ST elevation myocardial infarction): Plan 84 yo mna presenting with substernla chest discomfort * Several house of substernal chest discomfort * No significant radiation * Sudden onset * Woke patient from sleep * Chest Pressure improving but not completely resolved * + HTN * + Hyperlipidemia * No DM * No hx of CVA * Non Smoker * On presentation - Troponin 7+K Plans: * + Acute Coronary Syndrome * NSTEMI vs resolving Inferior STEMI (late presentation) * Start Heparin * Continue ASA 81 mg po per day * HR 51 BPM, SBP 97 mmHg - limiting ability to manage NSTEMI medically * Ongoing chest pressure * No evidence of active heart failure or clear RV failure (no elevation in JVP) * Plans for coronary angiography * Reaching out to IC Staff * Check LDL * Continue Statin * Case discussed with Hospitalist, ED Physician patient and family Colin Rojas Addendum: Bedside ECHO - Post WMA LVEF appears 50% RV Dilated Suspect late presentation of IMI Case discussed with IC Staff Colin Rojas Subjective Events Overnight: * Substernal Chest Pressure Subjective: * Ongoing chest pressure- improved but not resolved Review of Systems Review of Systems: All systems reviewed & are unremarkable except as noted in HPI & below Physical Exam Physical Exam: Slightly overweight No elevation in JVP S1S2 CTA B No C/C/E Warm and well-perfused Results & Data Vital Signs (Past 12 Hours) Vital Signs Temp Pulse Pulse Resp BP BP Pulse Ox 06/30/24 14:13 50 L 16 95/54 L 97 06/30/24 13:27 51 L 17 113/67 95 06/30/24 12:54 51 L 16 96 06/30/24 12:19 51 L 06/30/24 11:53 36.9 C 61 16 96/55 L 95 06/30/24 11:52 52 L 20 121/53 L 96 O2 Del Method 06/30/24 14:13 Room Air 06/30/24 13:27 Room Air 06/30/24 12:54 Room Air 06/30/24 12:19 06/30/24 11:53 Room Air 06/30/24 11:52 Room Air Laboratory Results Cardiac Enzymes 06/30/24 Range/Units 12:15 AST 76 H (13-39) U/L Troponin I High Sens 7182.7 H* (0-20) pg/ml CBC 06/30/24 Range/Units 12:15 WBC 13.35 H (4.8-10.8) K/ul RBC 4.32 L (4.70-6.10) M/uL Hgb 13.9 L (14.0-18.0) g/dl Hct 39.9 L (42.0-52.0) % Plt Count 155 (130-400) K/uL Neut # (Auto) 10.81 H (1.40-6.50) K/uL Lymph # (Auto) 1.57 (1.20-3.40) K/uL [place] # (Auto) 0.71 H (0.11-0.59) K/uL Eos # (Auto) 0.16 (0.00-0.50) K/uL Baso # (Auto) 0.05 (0.00-0.20) K/uL Comprehensive Metabolic Panel 06/30/24 Range/Units 12:15 Sodium 136 (136-145) mmol/L Potassium 4.4 (3.5-5.1) mmol/L Chloride 100 (98-107) mmol/L Carbon Dioxide 30 (21-32) mmol/L BUN 30 H (6-23) mg/dl Creatinine 1.48 H (0.6-1.4) mg/dl Glucose 104 H (70-99(Fasting)) mg/dl Calcium 9.1 (8.6-10.3) mg/dl AST 76 H (13-39) U/L ALT 24 (7-52) U/L Alkaline Phosphatase 60 (34-104) U/L Total Protein 6.4 (6.0-8.3) gm/dl Albumin 3.8 (3.4-5.0) gm/dl Intake and Output 06/29/24 06/30/24 06/30/24 22:59 06:59 14:59 Other: Weight 82.2 kg Weight Measurement Method Chair Scale Patient Weight 07/01/24 06:59 Weight 82.2 kg Diagnostic Findings EKG - Inferior Q waves - J point elevated CXR: No evidence of infiltrates or CHF Medications Administered Current Inpatient Medications Hydromorphone HCl (Hydromorphone Inj 0.5 Mg/0.5 Ml Syr) 0.25 mg IV Q15M PRN PRN Reason: Pain Stop: 07/14/24 13:17 Last Admin: 06/30/24 13:27 Dose: 0.25 mg Heparin Sodium/Dextrose (Heparin Sodium/Dextrose) 25,000 units in 500 mls @ 27 mls/hr IV .[id number] [facility]; Protocol Stop: 07/30/24 14:44
[2024-06-30 14:38] LABS: Troponin I High Sensitivity 11291.1 pg/ml (0-20)
[2024-06-30] MEDS: HEPARIN SOD (PORCINE) 1000 UNIT/ML IV STA (14:43)
[2024-06-30] MEDS: HEPARIN SODIUM/DEXTROSE 25,000 UNITS/500 ML BAG IV SCH (14:45)
--- NOTE | 2024-06-30 15:24 | Pre Anesthesia Assessment ---
Date of Service June 30, 2024 Pre Sedation Assessment Vital Signs Temp Pulse Pulse Resp BP BP Pulse Ox 06/30/24 14:13 50 L 16 95/54 L 97 06/30/24 13:27 51 L 17 113/67 95 06/30/24 12:54 51 L 16 96 06/30/24 12:19 51 L 06/30/24 11:53 36.9 C 61 16 96/55 L 95 06/30/24 11:52 52 L 20 121/53 L 96 O2 Del Method 06/30/24 14:13 Room Air 06/30/24 13:27 Room Air 06/30/24 12:54 Room Air 06/30/24 12:19 06/30/24 11:53 Room Air 06/30/24 11:52 Room Air Cardiovascular RRR, no murmur, no edema Respiratory normal respiratory effort, lungs clear to auscultation Pre-Sedation Airway Assessment Smoking Status: Never smoker Mallampati 2 ASA 4 Notes The planned sedation has been discussed with the patient. Informed Consent was obtained. I have identified the patient, determined the appropriateness of sedation and have assessed the patient immediately prior to the procedure. All medicine(s) and interventions are by my order.
--- NOTE | 2024-06-30 16:23 | Electrocardiogram Report ---
Test Reason : Blood Pressure : */* mmHG Vent. Rate : 51 BPM Atrial Rate : 51 BPM P-R Int : 194 ms QRS Dur : 92 ms QT Int : 414 ms P-R-T Axes : 41 -22 50 degrees QTcB Int : 381 ms Sinus bradycardia Inferior infarct , age undetermined Abnormal ECG When compared with ECG of 15-Oct-2019 18:54, Criteria for Inferior infarct is now Present ST elevation now present in Inferior leads Confirmed by Kael Delacruz ([id number]) on 06/30/2024 4:22:55 PM Referred By: Confirmed By: Kael Delacruz
[2024-06-30] MEDS: MIDAZOLAM HCL 1 MG/ML 2ML VIAL ONE (16:54)
[2024-06-30] MEDS: HEPARIN (PORCINE) 1000 UNIT/ML 10 ML (CATH LAB USE ONLY) ONE (16:54)
[2024-06-30] MEDS: fentaNYL citrate PF 100 MCG/2 ML VIAL ONE (16:54)
[2024-06-30] MEDS: OPTIRAY 350 ONE (16:55)
[2024-06-30] MEDS: niCARdipine HCL INJ 2.5 MG/ML 10 ML AMP ONE (16:55)
--- NOTE | 2024-06-30 16:55 | Post Anesthesia Assessment ---
Date of Service June 30, 2024 Post Sedation Assessment Vital Signs Temp Pulse Pulse Resp BP BP Pulse Ox 06/30/24 15:30 52 L 18 116/66 95 06/30/24 15:24 52 L 06/30/24 14:13 50 L 16 95/54 L 97 06/30/24 13:27 51 L 17 113/67 95 06/30/24 12:54 51 L 16 96 06/30/24 12:19 51 L 06/30/24 11:53 36.9 C 61 16 96/55 L 95 06/30/24 11:52 52 L 20 121/53 L 96 O2 Del Method 06/30/24 15:30 Room Air 06/30/24 15:24 06/30/24 14:13 Room Air 06/30/24 13:27 Room Air 06/30/24 12:54 Room Air 06/30/24 12:19 06/30/24 11:53 Room Air 06/30/24 11:52 Room Air Recovery Score Activity: Moves 4 extremities Respiration: Deep Breath/Cough Circulation: +/-20% PreAnes Value Consciousness: Fully Awake Oxygen Saturation: > 92% On Room Air Discharge Sedation Level of Care: Fast Track Phase II Post Sedation Plan On clinical assessment, the patient appears to have tolerated the sedation without complications. Patient is recovering as anticipated. Patient will continue to be monitored by nursing and may be discharged when sedation discharge criteria are met per below protocol. Upon Completions of procedure up to 15 minutes continue every 5 minute vital signs and the P.A.R. score; then discharge to a Phase I or Fast Track to Phase II per the following guidelines: * Discharge Patient to appropriate Phase II area if PAR is 8 or greater or return to pre- procedure baseline. The post - procedure orders will be as directed. * If PAR score is less than 8 or not return to pre-procedure baseline then patient will follow Phase I monitoring till PAR is reached for Phase II. The Phase I may be done in procedure room or may call to secure a Phase I area. * If naloxone or flumazenil are used for reversal, hold in Phase I for continued monitoring from when last reversal dose was given for a minimum of 60 minutes or longer pending the nurse and/or physician discretion of patient condition before discharge to Phase II. Please call the Sedation Physician to re-evaluate and complete post-note for discharge to Phase II area. Do NOT discharge from procedure sedation or Phase 1 until post- sedation evaluation note is complete by procedure /sedation MD Sedation Discharge Instructions to be given to the patient at discharge to home. [facility] [place] Procedure Codes (Charges) Indication for Procedure Indication for procedure: NSTEMI Sedation/Anesthesia Procedure 1: Sedation/Anesthesia: 63349 Mod Sedation by the same physician;Init15 Min Child Age 5 & Up (Initial 15 minutes, start time 1532) Total Sedation Time (minutes): 78 Procedure 2: Sedation/Anesthesia: 97687 Mod Sedation by the same physician; Ea [id number] Minutes (Additional 63 minutes, end time 1650) Total Sedation Time (minutes): 78
[2024-06-30] MEDS: TICAGRELOR 90 MG TAB ONE (16:56)
[2024-06-30] MEDS: NITROGLYCERIN/D5W 100MCG/ML 20ML SYR ONE (16:56)
[2024-06-30] MEDS ORDERED: ONDANSETRON INJ 2 MG/ML 2 ML VIAL IV PRN (17:32)
[2024-06-30] MEDS ORDERED: ACETAMINOPHEN 325 MG TAB PO PRN (17:32)
--- NOTE | 2024-06-30 17:54 | Cardiac Catheterization ---
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 Cardiac Status Clinical evaluation leading to the procedure CAD Presenation: Non STEMI Anginal Classification: CCS IV Heart Failure: No Cardiogenic Shock within 24 Hours: No Cardiac Arrest within 24 Hours: No Imaging Studies Past 6 Months: No Stress Studies Past 6 Months: No Coronary Anatomy Dominant: Right Left Main (% Stenosis): Normal LAD (% Stenosis): Mid (30%) and Distal (50 to 70%) D1 (% Stenosis): Normal D2 (% Stenosis): Normal D3 (% Stenosis): Proximal (80%) Circumflex (% Stenosis): Ostial (30%), Proximal (20 to 30%), Mid (95%) and D istal (30 to 40%) OM1 (% Stenosis): Normal (Diffuse 40 to 50%) L PL1 (% Stenosis): Normal L PL2 (% Stenosis): Normal RCA (% Stenosis): Proximal (50 to 70% then 100%) Diagnostic Physicians Name: Carlos Mcgregor MD, PhD Closure Device Percutaneous Entry Location: Radial Closure Device: Radial Band Recommendations: Medical Therapy and/or Counseling and PCI without planned CABG PCI Indication: PCI for high risk Non-SALEEM Lesion Segment Name: Proximal through distal RCA Culprit Artery: Yes Stenosis Prior to Rx (%): 100% Chronic Total Occlusion: No Pre-Procedure LESTER Flow: 0 Previously Treated Lesion: No Lesion Complexity: High/C Lesion Length (mm): 65 Thrombus Present: Yes Bifurcation Lesion: Yes Guidewire Across Lesion: Yes Lesion #2 Segment Name: Mid circumflex Culprit Artery: No Stenosis Prior to Rx (%): 95% Pre-Procedure LESTER Flow: 3 Previously Treated Lesion: No Lesion Complexity: Non-High/Non-C Lesion Length (mm): 8 Thrombus Present: No Bifurcation Lesion: Yes Guidewire Across Lesion: Yes Intraprocedure Events Significant Disection: No Perforation: No Cardiac Cath Procedure Full Procedure Date June 30, 2024 Pre-Procedure Diagnosis Pre-Procedure Diagnosis: Non STEMI AUC Score AUC Score: 07 Post-Procedure Diagnosis Post-Procedure Diagnosis: Severe CAD and Successful PCI Procedure(s) Performed Procedure(s) Performed: Coronary Angiography and Drug Eluting Stent Agency Trainer Carlos Mcgregor MD, PhD Estimated Blood Loss Estimated Blood Loss: 10 cc Medication(s) Medication(s): Fentanyl, Heparin, Lidocaine 1%, Nicardipine, Nitroglycerin and Versed Summary of Findings Brief description: Patient was brought to the cardiac catheterization suite where he was shaved and prepped in a sterile fashion. Sedated using IV Versed and fentanyl. Soft tissues of the right wrist were anesthetized using 2 mL of 1% Xylocaine. The right radial artery was accessed with a modified Seldinger technique and a 6 Cypriot radial artery glide sheath was placed. All catheters were advanced and exchanged over a 0.035 J-tip wire. Patient had received heparin in the emergency department. Therefore, ACT was checked and additional heparin was provided as needed to maintain therapeutic anticoagulation. This was repeated throughout the case as needed. Left coronary angiography was performed in orthogonal views with a 5 Cypriot JL 3.5 diagnostic catheter. Right coronary angiography was performed in orthogonal views using a 5 Cypriot JR4 diagnostic catheter. We next proceeded with PCI. The diagnostic catheters were removed. 6 Cypriot JR4 guide catheter was used to engage the right coronary artery. Through this a BMW dorsal guidewire was advanced and eventually was able to be positioned distally in the RCA. Proximal RCA lesion was predilated using a 2.0 x 12 mm mini trek balloon at 8 horacio. After dry wall installer angiography additional predilatation was performed with this balloon at 8 horacio, 16 horacio, and 17 horacio throughout the distal to the proximal vessel. Balloon was removed and a 2.25 x 20 mm trek balloon was used to perform additional predilatation. 8 horacio distally, 14 horacio mid, and 14 horacio proximally. The balloon was then removed. A 2.25 x 30 mm Dereck ANJANA was positioned distally and deployed at 14 horacio. Stent balloon removed. A 2.25 x 30 mm Dereck drug-eluting stent was advanced and positioned with its distal edge overlapped with the proximal portion of the first stent. It was deployed across the mid segment at 17 horacio. Stent balloon was deflated and then advanced slightly into the original stent where the overlap segment was dilated to 17 horacio. The stent balloon was then removed. A 2.5 x 18 mm Logsden drug-eluting stent was advanced and positioned with its distal edge just within the proximal portion of the middle RCA stent. This was then deployed in an overlapped fashion at 14 horacio. Stent balloon was removed and dry wall installer angiography performed. The proximal stent was then postdilated using a 2.5 x 12 mm NC Greyson balloon at 14 horacio. This balloon was then removed. Final angiographic evaluation was performed with the guidewire removed. The guide catheter was then removed. Decision was made to proceed with PCI of the circumflex. 6 Cypriot EBU 3.0 guide catheter was used to engage the left main coronary. BMW reversal guidewire was advanced and positioned distally in the circumflex. The mid circumflex lesion was predilated with a 2.5 x 8 mm trek balloon at 10 horacio. We attempted to deliver a 2.5 x 15 mm Logsden drug-eluting stent across the lesion, however, this could not be delivered despite the fact that we used a Coast guideliner support catheter. we successfully delivered a 2.5 x 12 mm Logsden drug-eluting stent using the Coast guideliner and deployed it at 15 horacio. Web Engineer angiography was performed. Patient was provided intracoronary nitroglycerin. The guide liner and guide catheter were subsequently removed. Final angiographic evaluation was performed. The guide catheter was then removed from the patient. Radial artery sheath was removed. Hemostasis was obtained using the TR band. Patient remained hemodynamically stable and asymptomatic. He was returned to the recovery area with plan for admission. Coronary angiography findings: TXT-fswii-uktazvt vessel bifurcating into LAD and circumflex. Mildly calcified and mild luminal irregularities. QLM-cyllg-tymywdo and transapical. Proximal segment with mild calcification. Gives a large branching first diagonal, the mid LAD has calcified diffuse less than 30% stenosis and gives the small to medium caliber second diagonal. Early distal LAD has moderately calcified 50 to 70% eccentric stenosis. It gives a medium caliber D3 which has ostial to proximal up to 80% stenosis. The remainder of the LAD and its branches have no more than mild luminal i rregularities. OBw-chdfa-boccufc and nondominant. Proximal vessel has calcification with diffuse less than 30% stenosis. Gives a medium caliber OM 1 with diffuse less than 40 to 50% narrowing. The mid AV groove vessel remains relatively large. It has a focal 95% stenosis just after the ostium of the OM1. This is moderately calcified and then the mid segment continues where there is mild calcification and diffuse less than 30 to 40% stenosis. Distal AV groove vessel gives an atrial branch followed by a small posterolateral branch 1 and then a medium to large caliber posterolateral branch 2. These vessels have diffuse luminal irregularities WJV-hvfxg-xaffwzh and dominant. Proximally there is mild to moderate calcification and diffuse disease up to 50 to 70% narrowing. Then, at the takeoff of the first RV marginal the vessel is 100% occluded with LESTER 0 flow. The distal PDA and posterolateral branches fills faintly via darp-ge-mapuu collateralization. They are small caliber. PCI of RCA- 0% residual stenosis post PCI LESTER-3 flow post PCI No evidence of dissection or perforation post PCI Distal RCA at the bifurcation with residual 40 to 50% stenosis the PDA and posterolateral branches are small to medium in caliber and not amenable to PCI. PCI of LCx- Less than 10% stenosis post PCI LESTER-3 flow post PCI No evidence of dissection or perforation post PCI Slight worsening of the jailed proximal OM1 vessel but LESTER-3 flow remains Summary: 1. Severe multivessel coronary artery disease as described. Culprit is the proximal RCA although this has some chronic severe occlusive findings. 2. Successful PCI of the RCA with implantation of 3 overlapped drug-eluting stents. 3. Successful PCI of the mid circumflex with 1 drug-eluting stent 4. Angiographically borderline residual stenosis in the LAD as described 5. Dual antiplatelet therapy with aspirin 81 mg daily and Brilinta 90 mg p.o. twice daily for 1 to 2 years as tolerated. 6. Guideline directed medical therapy for secondary prevention of coronary disease to include low-dose aspirin, high intensity statin therapy, beta- manuel, and ISAAC inhibitor. Hemodynamics Rest Ao:: 100/63 mmHg Final Ao: 136/73 mmHg LV: Not performed Recommendations Recommendations: Medical Therapy and/or Counseling and PCI without planned CABG Radiation Exposure (mGy) 3743 mGy, fluoroscopy time 24.7 minutes Contrast (mls) 185 cc Anesthesia 2 mg Versed, 50 mcg fentanyl IV. Start time 1532, end time 1650 Procedural Complication(s) None Disposition PCU I attest to the content of the Intraoperative Record and any orders documented therein. Any exceptions are noted below. ThromboVisionG Card Cath Procedure Codes Cardiac Catheterization Procedure 1: Cardiovascular Cath Procedures: 13588 Coronaries Moderate Sedation Procedure 1: Sedation/Anesthesia: 59651 Mod Sedation by the same physician;Init15 Min Child Age 5 & Up (Initial 15 minutes, start time 1532) Procedure 2: Sedation/Anesthesia: 40794 Mod Sedation by the same physician; Ea [id number] Minutes (Additional 63 minutes, end time 1650) Stenting Procedure 1: Cardiovascular Stent Procedures: [address]9635 [facility] transluminal revascularization of acute sub/total occl, aMI (RCA) Procedure 2: Cardiovascular Stent Procedures: 12433 [facility] transcatheter placement of intracoronary stent(s), with ang (LCx) PG Care Time/CCT Total # of Minutes Spent Total Time Spent with Patient: Total time spent is greater than 50% in coordination of care (as documented) at patient's floor/unit and/or counseling patient:
[2024-06-30] MEDS: ATORVASTATIN 40 MG TAB PO SCH (20:05)
[2024-06-30] MEDS: SUCRALFATE 1 GM TAB PO SCH (20:06)
[2024-06-30] MEDS: CALCIUM 600MG + VIT D 400 IU TAB PO SCH (20:06)
[2024-06-30] MEDS: DICYCLOMINE HCL 20 MG TAB PO SCH (20:06)
[2024-06-30] MEDS: HYDROCORTISONE 10 MG TAB PO SCH (20:07)
[2024-06-30] MEDS: METOPROLOL SUCC 50MG EXT REL TAB PO SCH (20:07)
[2024-06-30] MEDS: GABAPENTIN 300 MG CAP PO SCH (20:07)
[2024-06-30] MEDS: traZODone HCL 50 MG TAB PO SCH (20:07)
[2024-06-30] MEDS: GABAPENTIN 100 MG CAP PO SCH (20:08)
[2024-06-30] MEDS: TICAGRELOR 90 MG TAB PO SCH (20:08)
[2024-06-30] MEDS: INFLUENZA VACC TS2024-25(65y+)/PF (IIV3) 0.5mL Syr IM ONE (20:11)
[2024-06-30] MEDS ORDERED: SIMVASTATIN 20 MG TAB PO SCH (21:00)
[2024-07-01 03:01] LABS: Chol HDL Ratio 3.3 (0-5); Thyroid Stimulating Hormone 0.121 uIu/ml (0.300-4.500)
[2024-07-01 03:45] LABS: T4 Free Thyroxine 0.62 ng/dl (0.61-1.60)
[2024-07-01] MEDS: NITROGLYCERIN SL 0.4 MG/TAB TAB SL STA (05:03)
[2024-07-01] MEDS: NITROGLYCERIN SL 0.4 MG/TAB TAB ONE (05:11)
[2024-07-01] MEDS: MoRPHine SULFATE 2 MG/ML CARP IV STA (05:46)
[2024-07-01] MEDS: MoRPHine SULFATE 2 MG/ML CARP ONE (05:48)
[2024-07-01 06:00] LABS: Basophils # (auto) 0.03 K/uL (0.00-0.20); Basophils % (auto) 0.3 %; Eosinophils # (auto) 0.25 K/uL (0.00-0.50); Eosinophils % (auto) 2.4 %; Hematocrit (blood only) 34.2 % (42.0-52.0); Hemoglobin 12.1 g/dl (14.0-18.0); Immature Granulocytes # (auto) 0.04 K/uL (0.01-0.20); Immature Granulocytes % (auto) 0.4 %; Lymphocytes # (auto) 1.66 K/uL (1.20-3.40); Lymphocytes % (auto) 15.9 %; Mean Corpuscular Hemoglobin 31.9 pg (25.0-34.0); Mean Corpuscular Hgb Conc 35.4 g/dL (32.0-36.0); Mean Corpuscular Volume 90.2 fL (80.0-100.0); Mean Platelet Volume 10.8 fL (9.4-12.4); Monocytes # (auto) 0.73 K/uL (0.11-0.59); Neutrophils # (auto) 7.71 K/uL (1.40-6.50); Platelet Count 141 K/uL (130-400); RDW Coefficient of Variation 13.3 % (11.5-14.5); RDW Standard Deviation 44.1 fL (36.4-46.3); Red Blood Count 3.79 M/uL (4.70-6.10); White Blood Count 10.42 K/ul (4.8-10.8)
[2024-07-01 06:18] LABS: BUN Creatinine Ratio 21.1 (10-20); Calcium 9.3 mg/dl (8.6-10.3); Creatinine Clr Calc Pharmacy 40.7 ml/min; Magnesium 1.8 mg/dl (1.7-2.4); Potassium 4.1 mmol/L (3.5-5.1)
[2024-07-01 06:51] LABS: Troponin I High Sensitivity 55233.3 pg/ml (0-20)
[2024-07-01 07:06] LABS: Estimated Average Glucose 120 mg/dl; Hemoglobin A1C 5.8 % (4.5-5.6)
--- NOTE | 2024-07-01 08:05 | Electrocardiogram Report ---
Test Reason : Blood Pressure : */* mmHG Vent. Rate : 53 BPM Atrial Rate : 53 BPM P-R Int : 188 ms QRS Dur : 92 ms QT Int : 412 ms P-R-T Axes : 42 -36 29 degrees QTcB Int : 386 ms Sinus bradycardia Left axis deviation Inferior-posterior infarct , age undetermined (cited on or before 30-Jun-2024) Abnormal ECG When compared with ECG of 30-Jun-2024 12:02, No significant change was found Confirmed by Kael Delacruz ([id number]) on 07/01/2024 8:05:20 AM Referred By: REFERRED SELF Confirmed By: Kael Delacruz
[2024-07-01] MEDS: PANTOprazole 40 MG TAB PO SCH (08:06)
[2024-07-01] MEDS: HYDROCORTISONE 10 MG TAB PO SCH (08:07)
[2024-07-01] MEDS: SERTRALINE HCL 100 MG TABLET PO SCH (08:09)
[2024-07-01] MEDS: methIMAzole 5 MG TABLET PO SCH (08:10)
[2024-07-01] MEDS: ASPIRIN 81 MG ECTAB PO SCH (08:10)
[2024-07-01] MEDS ORDERED: ASPIRIN 81 MG ECTAB PO SCH (09:00)
[2024-07-01] MEDS: lisinopril 20 MG TAB PO SCH (12:46)
[2024-07-01] MEDS: ISOSORBIDE MONO EXTENDED REL 30 MG TABCR PO SCH (12:46)
[2024-07-01] MEDS: BUMETANIDE 1 MG TAB PO SCH (12:46)
[2024-07-01] MEDS: POLYETHYLENE (MIRALAX) 17 GM PACK PO PRN (12:55)
--- NOTE | 2024-07-01 13:56 | Cardiology Progress Note ---
Date of Service July 01, 2024 Assessment & Plan (1) STEMI (ST elevation myocardial infarction): (2) S/P right coronary artery (RCA) stent placement: (3) 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: (4) Non-sustained ventricular tachycardia: (5) Dyslipidemia, goal LDL below 70: Plan 84-year-old male with late presentation of inferior, lateral STEMI. Stenting of right coronary artery and left circumflex as noted above. Patient pain-free this morning. Brief runs of nonsustained ventricular tachycardia recorded. Continue current medications including aspirin, Brilinta, Toprol-XL, atorvastatin, and lisinopril. Chlorthalidone will remain on hold. Continue daily Bumex. Maintain serum potassium greater than 4.0, magnesium greater than 2.0. 2g IV magnesium sulfate ordered. Outpatient referral for cardiac rehab. Admission and Anticipated Discharge Date Admission Date: June 30, 2024 Subjective 84-year-old male seen and examined at the bedside. Reports chest discomfort overnight which has resolved. Tolerating current medications. present at bedside. Questioning whether patient will require cardiac rehab post discharge. Short run of asymptomatic nonsustained ventricular tachycardia and accelerated idioventricular rhythm recorded on telemetry. Review of Systems Review of Systems: All systems reviewed & are unremarkable except as noted in Subjective Physical Exam Constitutional: well nourished; no acute distress Respiratory: normal respiratory effort; no respiratory distress and no retractions Auscultation: no crackles, no rales, no rhonchi and no wheezes Cardiovascular: Rate/Rhythm: regular rate and regular rhythm Heart Sounds: normal S1 and normal S2; no murmur Vessels: no JVD Extremities: no edema Gastrointestinal (Abdomen): Inspection/Auscultation: abdomen normal to inspection and normal bowel sounds; abdomen not distended Percussion/Palpation: abdomen soft; abdomen nontender, no guarding and abdomen not rigid Neurologic: CN's II-XI intact bilaterally and moves all extremities Results & Data Vital Signs (Past 12 Hours) Vital Signs Temp Pulse Resp BP Pulse Ox O2 Del Method O2 Flow Rate 07/01/24 10:41 36.8 C 60 16 95/54 L 94 Room Air 07/01/24 08:18 36.7 C 53 L 18 108/63 98 Nasal Cannula 2 07/01/24 08:03 Nasal Cannula 2 07/01/24 06:05 51 L 18 97/59 L 96 Nasal Cannula 2 07/01/24 05:27 54 L 18 117/66 96 Nasal Cannula 2 07/01/24 05:10 54 L 18 92/52 L 96 Room Air 07/01/24 05:02 54 L 18 119/62 96 Nasal Cannula 2 07/01/24 04:04 36.5 C 58 L 18 130/81 98 Room Air Laboratory Results Cardiac Enzymes 06/30/24 06/30/24 07/01/24 Range/Units 13:56 20:18 01:40 Troponin I High Sens 06692.1 H* D 77836.5 H* D 86684.9 H* (0-20) pg/ml 07/01/24 Range/Units 05:39 Troponin I High Sens 65827.3 H* (0-20) pg/ml Lipids 07/01/24 Range/Units 01:40 Triglycerides 120 (0-150) mg/dl Cholesterol 143 (0-200) mg/dl HDL Cholesterol 44 mg/dl Cholesterol/HDL Ratio 3.3 (0-5) CBC 07/01/24 Range/Units 05:40 WBC 10.42 (4.8-10.8) K/ul RBC 3.79 L (4.70-6.10) M/uL Hgb 12.1 L (14.0-18.0) g/dl Hct 34.2 L (42.0-52.0) % Plt Count 141 (130-400) K/uL Neut # (Auto) 7.71 H (1.40-6.50) K/uL Lymph # (Auto) 1.66 (1.20-3.40) K/uL [place] # (Auto) 0.73 H (0.11-0.59) K/uL Eos # (Auto) 0.25 (0.00-0.50) K/uL Baso # (Auto) 0.03 (0.00-0.20) K/uL Comprehensive Metabolic Panel 07/01/24 Range/Units 05:39 Sodium 137 (136-145) mmol/L Potassium 4.1 (3.5-5.1) mmol/L Chloride 102 (98-107) mmol/L Carbon Dioxide 29 (21-32) mmol/L BUN 28 H (6-23) mg/dl Creatinine 1.33 (0.6-1.4) mg/dl Glucose 85 (70-99(Fasting)) mg/dl Calcium 9.3 (8.6-10.3) mg/dl Intake and Output 06/30/24 07/01/24 07/01/24 22:59 06:59 14:59 Intake Total 200 / 350 150 / 350 Balance 200 / 350 150 / 350 Intake: Oral 200 / 350 150 / 350 Other: # Unmeasured Voids 1 Weight 82.2 kg 81.2 kg Weight Measurement Method Built in [facility] Built in [facility] Diagnostic Findings Cardiac cath intervention summary: 1. Severe multivessel coronary artery disease as described. Culprit is the proximal RCA although this has some chronic severe occlusive findings. 2. Successful PCI of the RCA with implantation of 3 overlapped drug-eluting stents. 3. Successful PCI of the mid circumflex with 1 drug-eluting stent 4. Angiographically borderline residual stenosis in the LAD as described 5. Dual antiplatelet therapy with aspirin 81 mg daily and Brilinta 90 mg p.o. twice daily for 1 to 2 years as tolerated. 6. Guideline directed medical therapy for secondary prevention of coronary disease to include low-dose aspirin, high intensity statin therapy, beta- manuel, and ISAAC inhibitor. (1) STEMI (ST elevation myocardial infarction) Involved coronary artery: right coronary artery Qualified Code(s): I21.11 - ST elevation (STEMI) myocardial infarction involving right coronary artery
[2024-07-01] MEDS: MAGNESIUM SULFATE / D5W 1 GM/100 ML BAG IV SCH (14:19)
--- NOTE | 2024-07-01 18:14 | Hospitalist Progress Note ---
Date of Service July 01, 2024 delayed entry date of service noted above Assessment & Plan (1) ACS (acute coronary syndrome): (2) NSTEMI (non-ST elevated myocardial infarction): (3) HTN (hypertension): (4) Hyperlipidemia: (5) CKD (chronic kidney disease): (6) BPH (benign prostatic hyperplasia): (7) Panhypopituitarism: Plan This is an 84-year-old male who has significant past medical history of HTN, hyperthyroidism, hypotestosteronemia, chronic sinusitis, IBS, BPH, CKD stage III, RLS, history of pituitary adenoma s/p resection on long-term hydrocortisone therapy, blindness of the left eye, history of malignant melanoma who presents to ED secondary to chest pain. ACS/NSTEMI pt presented to substernal chest pain, borderline hypotensive/bradycardic and troponin 7k with repeat 2hr trop 11k Seen and evaluated by cardiology and interventional and pt is going to emergent cardiac cath - suspect inferior wall post GA obtain stat echo keep NPO, started on IV Heparin trend trops, a1c, lipid panel in a.m. further recommendations post cardiac cath Pt is S/P Cardiac Cath with successful PCI of RCA with 3 overlapping ANJANA and Successful PCI of the mid circumflex with 1 ANJANA, severe multivessel CAD Recommend DAPT ASA and brilinta 90mg bid for 1-2 years, GDMT with ASA, statin, metoprolol and lisinopril as BP allows Imdur added per Ddr. Dae 07/01 PRN Hydrocodone for chest pain post NSTEMI medication management per Cardiology service continue to monitor HTN: chronic on bumex, chlorthalidone, lisinopril and metoprolol. hold chlorthalidone for now HLD: chronic, stable on statin, continue for now with lipid panel in a.m. 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 Hyperthyroidism - continue methimazole FULL CODE PCP: [facility] Dispo: pending Admission and Anticipated Discharge Date Admission Date: June 30, 2024 Subjective ff up for nstemi etc seen resting in bed, comfortable states he feels fine overall had some chest pain overnight, resolved no dyspnea, palpitations, dizziness no other symptoms Review of Systems Review of Systems: General- oriented x 3, not in distress, speaks in sentences with no effort or accessory muscle use Eyes- anicteric Neck- no JVD Lungs- clear breath sounds bilaterally, no rales/wheezes Heart- normal rate, regular rhythm; no murmurs Abdomen- normal bowel sounds, nondistended, soft, nontender Extremities- no pretibial edema, no calf tenderness Neuro- alert, oriented x 3; no gross focal neurologic deficits Skin- warm & dry Physical Exam Physical Exam: General- oriented x 3, not in distress, speaks in sentences with no effort or accessory muscle use Eyes- anicteric Neck- no JVD Lungs- clear breath sounds bilaterally, no rales/wheezes Heart- normal rate, regular rhythm; no murmurs Abdomen- normal bowel sounds, nondistended, soft, nontender Extremities- no pretibial edema, no calf tenderness Neuro- alert, oriented x 3; no gross focal neurologic deficits Skin- warm & dry Results & Data Results & Data Vital Signs (Past 12 Hours) Vital Signs Temp Pulse Pulse Resp BP Pulse Ox Pulse Ox 07/01/24 17:32 98 07/01/24 15:09 37.1 C 55 L 17 152/72 H 94 07/01/24 14:42 61 07/01/24 13:51 73 07/01/24 10:41 36.8 C 60 16 95/54 L 94 07/01/24 08:18 36.7 C 53 L 18 108/63 98 07/01/24 08:03 O2 Del Method O2 Del Method O2 Flow Rate 07/01/24 17:32 Room Air 07/01/24 15:09 Room Air 07/01/24 14:42 07/01/24 13:51 07/01/24 10:41 Room Air 07/01/24 08:18 Nasal Cannula 2 07/01/24 08:03 Nasal Cannula 2 all noted and reviewed including below
[2024-07-01] MEDS: METOPROLOL SUCC 50MG EXT REL TAB PO SCH (20:16)
[2024-07-01] MEDS: HYDROCODONE/ACETAMOPHEN 5/325MG TAB PO PRN (20:56)
[2024-07-02] MEDS: hydrOXYzine HCl 10 MG TAB PO PRN (03:32)
--- NOTE | 2024-07-02 08:46 | Electrocardiogram Report ---
Test Reason : Blood Pressure : */* mmHG Vent. Rate : 54 BPM Atrial Rate : 54 BPM P-R Int : 192 ms QRS Dur : 90 ms QT Int : 402 ms P-R-T Axes : 29 -34 -16 degrees QTcB Int : 381 ms Sinus bradycardia Left axis deviation Inferior-posterior infarct , age undetermined (cited on or before 30-Jun-2024) Abnormal ECG When compared with ECG of 01-Jul-2024 04:29, No significant change Confirmed by Kael Delacruz ([id number]) on 07/02/2024 8:46:32 AM Referred By: REFERRED SELF Confirmed By: Kael Delacruz
[2024-07-02 11:08] LABS: BUN Creatinine Ratio 19.6 (10-20); Calcium 8.8 mg/dl (8.6-10.3); Creatinine Clr Calc Pharmacy 36.6 ml/min; Potassium 3.5 mmol/L (3.5-5.1)
--- NOTE | 2024-07-02 13:49 | Cardiology Progress Note ---
Date of Service July 02, 2024 Assessment & Plan (1) STEMI (ST elevation myocardial infarction): (2) S/P right coronary artery (RCA) stent placement: (3) 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: (4) Non-sustained ventricular tachycardia: (5) Dyslipidemia, goal LDL below 70: Plan 84-year-old male with late presentation of inferior, lateral STEMI with RV involvement s/p PCI of right coronary artery and left circumflex. Continue current medications including aspirin, Brilinta, Toprol-XL, atorvastatin, bumex, isosorbide monohydrate, and lisinopril. Chlorthalidone will remain on hold. Continue daily Bumex. Outpatient referral for cardiac rehab. Patient may be discharge from a cardiovascular perspective. Cardiology follow-up in 2 weeks. Admission and Anticipated Discharge Date Admission Date: June 30, 2024 Subjective Patient seen and examined at the bedside. Blood pressure improved. Telemetry will sinus rhythm and sinus bradycardia. No dysrhythmia. Requesting discharge. Offers no concerns/complaints. Review of Systems Review of Systems: All systems reviewed & are unremarkable except as noted in Subjective Physical Exam Constitutional: well nourished; no acute distress Respiratory: normal respiratory effort; no respiratory distress and no retractions Auscultation: no crackles, no rales, no rhonchi and no wheezes Cardiovascular: Rate/Rhythm: regular rate and regular rhythm Heart Sounds: normal S1 and normal S2; no murmur Vessels: no JVD Extremities: no edema Gastrointestinal (Abdomen): Inspection/Auscultation: abdomen normal to inspection and normal bowel sounds; abdomen not distended Percussion/Palpation: abdomen soft; abdomen nontender, no guarding and abdomen not rigid Neurologic: CN's II-XI intact bilaterally and moves all extremities Results & Data Vital Signs (Past 12 Hours) Vital Signs Temp Pulse Pulse Resp BP Pulse Ox O2 Del Method 07/02/24 12:56 36.6 C 60 17 116/72 94 Room Air 07/02/24 09:30 36.6 C 63 18 114/55 L 97 Room Air 07/02/24 07:00 62 07/02/24 03:15 36.7 C 54 L 20 121/67 97 Room Air Laboratory Results Comprehensive Metabolic Panel 07/02/24 Range/Units 10:31 Sodium 136 (136-145) mmol/L Potassium 3.5 (3.5-5.1) mmol/L Chloride 101 (98-107) mmol/L Carbon Dioxide 29 (21-32) mmol/L BUN 29 H (6-23) mg/dl Creatinine 1.48 H (0.6-1.4) mg/dl Glucose 109 H (70-99(Fasting)) mg/dl Calcium 8.8 (8.6-10.3) mg/dl Intake and Output 07/01/24 07/02/24 07/02/24 22:59 06:59 14:59 Intake Total 1056.667 / 1680.000 80 / 1680.000 960 / 960 Output Total 0 / 0 0 / 0 Balance 1056.667 / 1680.000 80 / 1680.000 960 / 960 Intake: IV 696.667 / 700.000 Heparin Sodium/Dextrose 25,000 500 / 500 units In 500 ml @ 1,350 UNITS/ HR 27 mls/hr IV .[id number] TOD Rx #:[id number] Magnesium Sulfate / D5w 1 gm In 196.667 / 200.000 100 ml @ 50 mls/hr IV Q2H TOD Rx#:[id number] Oral 360 / 980 80 / 980 960 / 960 Output: # Bowel Movements 0 / 0 0 / 0 Other: # Unmeasured Voids 3 2 3 Weight 72.32 kg Weight Measurement Method Built in [facility] (1) STEMI (ST elevation myocardial infarction) Involved coronary artery: right coronary artery Qualified Code(s): I21.11 - ST elevation (STEMI) myocardial infarction involving right coronary artery
[2024-07-02 14:53] VITALS: BP 112/65; RESP 16; TEMP 99.5; O2SAT 95
--- NOTE | 2024-07-02 17:00 | Discharge Summary ---
Discharge Summary Date of Service July 02, 2024 delayed entry date of service noted above Principal Dx & Hospital Course #1 = Principal Diagnosis (1) ACS (acute coronary syndrome): (2) NSTEMI (non-ST elevated myocardial infarction): (3) HTN (hypertension): (4) Hyperlipidemia: (5) CKD (chronic kidney disease): (6) BPH (benign prostatic hyperplasia): (7) Panhypopituitarism: Plan This is an 84-year-old male who has significant past medical history of HTN, hyperthyroidism, hypotestosteronemia, chronic sinusitis, IBS, BPH, CKD stage III, RLS, history of pituitary adenoma s/p resection on group home hydrocortisone therapy, blindness of the left eye, history of malignant melanoma who presents to ED secondary to chest pain. ACS/NSTEMI pt presented to substernal chest pain, borderline hypotensive/bradycardic and troponin 7k with repeat 2hr trop 11k Seen and evaluated by cardiology and interventional and pt is going to emergent cardiac cath - suspect inferior wall post UT obtain stat echo keep NPO, started on IV Heparin trend trops, a1c, lipid panel in a.m. further recommendations post cardiac cath Pt is S/P Cardiac Cath with successful PCI of RCA with 3 overlapping ANJANA and Successful PCI of the mid circumflex with 1 ANJANA, severe multivessel CAD Recommend DAPT ASA and brilinta 90mg bid for 1-2 years, GDMT with ASA, statin, metoprolol and lisinopril as BP allows Imdur added per Ddr. Dae 07/05/24 chest pain free Cardiology Service Dr Ramos recommendations: Continue current medications including aspirin, Brilinta, Toprol-XL, atorvastatin, bumex, isosorbide monohydrate, and lisinopril. Chlorthalidone will remain on hold. Continue daily Bumex. Outpatient referral for cardiac rehab. Patient may be discharge from a cardiovascular perspective. Cardiology follow-up in 2 weeks. HTN: chronic on bumex, chlorthalidone, lisinopril and metoprolol. hold chlorthalidone for now HLD: chronic, stable on statin CKD-3 - baseline cr 1.4, stable Hx of pituitary adenoma s/p resection/Panhypopituitarism - on hydrocortisone Hyperthyroidism - continue methimazole FULL CODE PCP: [facility] Dispo: d/c home ff up with PCP in 1 week ff up with Cardiology in 2 weeks Notes For Next Care Provider Medication Changes From Visit as per assessment and plan Admission HPI Per Admitting Provider This is an 84-year-old male who has significant past medical history of HTN, hyperthyroidism, hypotestosteronemia, chronic sinusitis, IBS, BPH, CKD stage III, RLS, history of pituitary adenoma s/p resection on group home hydrocortisone therapy, blindness of the left eye, history of malignant melanoma who presents to ED secondary to chest pain. Pt reports chest pain started last evening. Chest pain is substernal and nonradiating. The pain has mostly been constant as nothing has made it better or worse. On arrival his chest pain was 9/10. He was given a full dose ASA and a small dose of IV dilaudid in ED which eased the pain, but it has not completely resolved. On initial presentation troponin was 7182 and 2hr trop was 53454.1 pg/ml. Initial ecg did revealed nonspecific inferior lead changes but no overt stemi. He was seen and evaluated by cardiology who is recommending emergent cardiac cath due to concern for late UT presentation. He denies tobacco or alcohol use. Admission Exam Per Admitting Provider Constitutional: WD/WN, vitals as above, NAD, sitting up in bed, pleasant, conversing easily Head: Normocephalic, Atraumatic Eyes: PERRL, conjunctivae normal, anicteric sclerae ENMT: external ear and nose normal, oropharynx normal Neck: trachea midline, no thyromegaly normal visual inspection Respiratory: normal respiratory effort no audible w/r/r Cardiovascular: RRR Chest: normal inspection of chest Abdomen: SNTND+BS Musculoskeletal: AROM x 4 Skin: no rashes, warm and dry normal turgor Neurologic: no face palsy, no dysarthria CN's II-XI intact bilaterally and moves all extremities Psychiatric: A+Ox3, euthymic affect Discharge Exam General- oriented x 3, not in distress, speaks in sentences with no effort or accessory muscle use Eyes- anicteric Neck- no JVD Lungs- clear breath sounds bilaterally, no rales/wheezes Heart- normal rate, regular rhythm; no murmurs Abdomen- normal bowel sounds, nondistended, soft, nontender Extremities- no pretibial edema, no calf tenderness Neuro- alert, oriented x 3; no gross focal neurologic deficits Skin- warm & dry Updated Medication List Medication Instructions Recorded Confirmed Type aspirin 81 mg tablet,delayed 81 mg PO QAM #30 tabs 02/23/19 06/30/24 Rx release calcium 600 mg (as 1 tab PO BID #30 tabs 02/23/19 06/30/24 Rx carbonate)-vitamin D3 5 mcg (200 unit) tablet (Calcium 600 + D(3)) magnesium 250 mg tablet 250 mg PO QAM #30 tabs 02/23/19 06/30/24 Rx multivitamin (Multiple Vitamins 1 tab PO QAM 05/27/19 06/30/24 History tablet) trazodone 150 mg tablet 150 mg PO HS 10/10/19 06/30/24 History hydroxyzine HCl 10 mg tablet 10 mg PO Q6H PRN anxiety #30 tabs 10/14/19 06/30/24 Rx ascorbic acid (vitamin C) 1,000 mg 500 mg PO QAM 03/18/20 06/30/24 History tablet ferrous sulfate 325 mg (65 mg 325 mg PO QAM PRN anemia 03/18/20 06/30/24 History iron) tablet (Feosol) dicyclomine 20 mg tablet 20 mg PO TID abdominal pain 11/02/21 06/30/24 History dutasteride 0.5 mg-tamsulosin ER 2 cap PO HS 11/02/21 06/30/24 History 0.4 mg capsule ext.release 24hr mphas (Yancy) gabapentin 300 mg capsule 300 mg PO BID 11/02/21 06/30/24 History bumetanide 1 mg tablet 1 mg PO QAM 01/04/22 06/30/24 History doxazosin 4 mg tablet 8 mg PO HS 01/04/22 06/30/24 History omeprazole 20 mg capsule,delayed 20 mg PO DAILYBB 01/04/22 06/30/24 History release ondansetron 4 mg disintegrating 4 mg PO Q6H PRN nausea and 01/04/22 06/30/24 Rx tablet vomiting #14 tabs gabapentin 100 mg capsule 100 mg PO HS 01/03/23 06/30/24 History sertraline 100 mg tablet (Zoloft) 200 mg PO QAM 01/03/23 06/30/24 History testosterone 2 pump topical DAILY ICD 10 code - 12/16/23 06/30/24 Rx E29.1 #225 grams hydrocortisone 5 mg tablet 10 mg PO HS 06/30/24 06/30/24 History hydrocortisone 5 mg tablet 20 mg PO DAILY 06/30/24 06/30/24 History methimazole 5 mg tablet 5 mg PO DAILY 06/30/24 06/30/24 History potassium chloride 20 mEq 20 meq PO DAILY 06/30/24 06/30/24 History tablet,extended release sucralfate 1 gram tablet 1 g PO AC 06/30/24 06/30/24 History atorvastatin 40 mg tablet 40 mg PO QAM 30 days #30 tabs 07/02/24 Rx isosorbide mononitrate 30 mg 30 mg PO QAM 30 days #30 tabs 07/02/24 Rx tablet,extended release 24 hr lisinopril 20 mg tablet 20 mg PO QAM 30 days #30 tabs 07/02/24 Rx metoprolol succinate 50 mg 50 mg PO BID 30 days #60 tabs 07/02/24 Rx tablet,extended release 24 hr ticagrelor 90 mg tablet (Brilinta) 90 mg PO BID 30 days #60 tabs 07/02/24 Rx Hospital Stay Data Consultations 06/30/24 14:22 Consult Cardiology Routine 06/30/24 14:26 ED Decision to Admit Stat Procedures Performed Operation Date: 06/30/24 15:00 Actual Procedures p Cineradiography w/Routine Exam - Carlos Mcgregor MD, PhD s Cath, Coronaries ONLY (no LV) - Carlos Mcgregor MD, PhD s Drug Eluting Stent SGl Vessel - Carlos Mcgregor MD, PhD Diagnostic Imagining Performed 06/30/24 14:55 CL Cath Imgs for PACS use only Stat Pending Results Patient Have Any Pending Studies at Discharge: No Discharge Instructions Given to Patient (Per Discharging Provider) PLEASE REFER TO YOUR NEW MEDICATION LIST AND FOLLOW INSTRUCTIONS CAREFULLY. You need to take Aspirin and Brillinta every single day to prevent cardiac stent occlusion. Hold Testosterone for now in light of recent myocardial infarction, until further discussion with your primary care physician. PLEASE CALL YOUR PRIMARY CARE PHYSICIAN OR RETURN TO THE ER IF WITH WORSENING OF SYMPTOMS, INCLUDING chest pain, shortness of breath, palpitations, dizziness, weakness, etc FOLLOW UP WITH PRIMARY CARE PHYSICIAN OUTLINED ABOVE. FOLLOW UP WITH CARDIOLOGY CLINIC IN 2 WEEKS. THE CLINIC WILL BE CALLING YOU SOON FOR AN APPOINTMENT. Total Time Total Time Spent Total Time Spent (In Minutes): 35 minutes
[2024-07-02 17:16] VITALS: PULSE 60
== END 2024-07-02 18:04 | disposition home or self-care (01) | DRG 321 ==
LOC: ED 11:52 → 4W 14:22 → SUATTDRO 14:22
PROC: CLB.CCO (2024-06-30 15:00)

== ENCOUNTER 2024-07-07 17:24 | Observation (INO) ==
--- NOTE | 2024-07-07 17:50 | ED Triage Note ---
Date of Service July 07, 2024 Provider in Triage Author: Meghan Boo History of Present Illness This patient was briefly evaluated while in triage. An abbreviated physical exam was performed. This patient is a 84-year-old Male who presents to the ED for evaluation of generalized pain. He states "I just hurt all over." He had 4 stents put in 3 days ago. He denies chest pain or shortness of breath but states that all of his muscles hurt. He states he is very fidgety. Physical Exam GENERAL: Non-toxic and in no acute distress. Sitting upright in wheelchair. Humming to himself. HEENT: Pupils equal. No obvious scleral icterus. HEART: Regular rate and rhythm. LUNGS: Clear to auscultation. No accessory muscle use. NEURO: Patient is agitated. Initial orders for labs and / or imaging were placed and patient was placed in the waiting area until a bed is available. Please see further documentation for the full ED course.
--- NOTE | 2024-07-07 18:22 | XRay Report ---
XR chest 1V portable HISTORY: 84 years-old Male Pain acute chest pain COMPARISON: 06/30/2024 TECHNIQUE: AP view of the chest FINDINGS: Cardiac silhouette is normal. Lungs are clear. No pneumothorax or pleural effusion. Bones appear [place] intact. There is unchanged right hemidiaphragmatic elevation. IMPRESSION: No acute process ACT 112: Negative or not required by law. The above report was generated using voice recognition software. It may contain grammatical, syntax o r spelling errors. Electronically signed by: Bharathi Ya M.D. 07/07/2024 6:21 PM
[2024-07-07] MEDS: LORazepam 2 MG/1 ML VIAL IV STA ×2 (18:40→20:23)
[2024-07-07] MEDS: ACETAMINOPHEN 1,000 MG/100 ML VIAL IV STA (18:40)
[2024-07-07 18:43] LABS: Basophils # (auto) 0.06 K/uL (0.00-0.20); Basophils % (auto) 0.5 %; Eosinophils # (auto) 0.65 K/uL (0.00-0.50); Eosinophils % (auto) 5.7 %; Hematocrit (blood only) 37.4 % (42.0-52.0); Immature Granulocytes # (auto) 0.09 K/uL (0.01-0.20); Immature Granulocytes % (auto) 0.8 %; Lymphocytes # (auto) 2.96 K/uL (1.20-3.40); Lymphocytes % (auto) 26.1 %; Mean Corpuscular Hemoglobin 32.4 pg (25.0-34.0); Mean Corpuscular Hgb Conc 34.8 g/dL (32.0-36.0); Mean Corpuscular Volume 93.3 fL (80.0-100.0); Mean Platelet Volume 10.7 fL (9.4-12.4); Monocytes # (auto) 0.92 K/uL (0.11-0.59); Monocytes % (auto) 8.1 %; Neutrophils # (auto) 6.64 K/uL (1.40-6.50); Neutrophils % (auto) 58.8 %; Platelet Count 170 K/uL (130-400); RDW Coefficient of Variation 12.9 % (11.5-14.5); RDW Standard Deviation 44.1 fL (36.4-46.3); Red Blood Count 4.01 M/uL (4.70-6.10); White Blood Count 11.32 K/ul (4.8-10.8)
[2024-07-07 18:55] LABS: Alanine Aminotransferase 20 U/L (7-52); Albumin Globulin Ratio 1.4 (0.9-2); Albumin Level 3.9 gm/dl (3.4-5.0); Alkaline Phosphatase 75 U/L (34-104); Anion Gap 7 (3-11); Aspartate Aminotransferase 22 U/L (13-39); Bilirubin,Total 0.5 mg/dl (0.2-1.0); Blood Urea Nitrogen 47 mg/dl (6-23); Calcium 9.3 mg/dl (8.6-10.3); Carbon Dioxide 26 mmol/L (21-32); Chloride 101 mmol/L (98-107); Globulin 2.7 gm/dl (2.5-4.0); Glucose 95 mg/dl (70-99(Fasting)); Magnesium 2.2 mg/dl (1.7-2.4); Potassium 4.5 mmol/L (3.5-5.1); Sodium 134 mmol/L (136-145); Total Protein 6.6 gm/dl (6.0-8.3)
[2024-07-07 20:48] LABS: Appearance Urine Clear (Clear); Bacteria Urine Automated None Seen (None Seen); Bilirubin Urine Negative (Negative); Blood Urine Negative (Negative); Cast Urine Automated 0-2 /lpf (0-2); Color Urine Yellow; Epithelial Cell Urine Auto 0-2 /hpf (0-2); Glucose Urine UA Negative (Negative); Ketones Urine Trace (Negative); Leukocyte Esterase Urine Trace (Negative); Nitrite Urine Negative (Negative); Protein Urine Trace (Negative); Specific Gravity Urine 1.019 (1.000-1.030); Urobilinogen Urine Negative (Negative); WBC Urine Automated 0-5 /hpf (0-5); pH Urine >= 9.0 (4.5-7.5)
[2024-07-07] MEDS: LIDOCAINE 5% 1 PATCH TD STA (21:59)
[2024-07-07] MEDS: MAGNESIUM SULFATE / D5W 1 GM/100 ML BAG IV STA (21:59)
--- NOTE | 2024-07-08 00:32 | CT Scan Report ---
Exam(s): CT HEAD Without Contrast EXAM: CT Head Without Intravenous Contrast CLINICAL HISTORY: Reason for exam: weakness. TECHNIQUE: Axial computed tomography images of the head/brain without intravenous contrast. CTDI is 35.37 mGy and DLP is 624.41 mGy-cm. Automated exposure control was utilized for the study. A dose lowering technique was utilized adhering to the principles of ALARA. COMPARISON: No relevant prior studies available. FINDINGS: No acute intracranial hemorrhage. No midline shift or mass effect. The territorial carlos-white matter differentiation is maintained throughout. Age-related cerebral volume loss. Periventricular and subcortical white matter hypoattenuation, consistent with chronic microangiopathy. The visualized orbits appear grossly unremarkable. The calvarium is intact. The visualized paranasal sinuses and mastoid air cells are grossly clear. IMPRESSION: No acute intracranial hemorrhage, midline shift, or mass effect. Electronically signed by: Reid Ching MD 07/08/24 00:31 AM
--- NOTE | 2024-07-08 00:56 | Emergency Department Note ---
Impression & Plan Ataxia, Anxiety ED Provider Note ED Provider Note NAME: PUJA GROSSMAN AGE:84 SEX: Male : 1940 ARRIVES VIA: Private vehicle INFORMANT: Patient, ED PROVIDER(s): Ericka Mccurdy DO CHIEF COMPLAINT: Anxiety HPI: This is an 84-year-old male who presents with his at bedside due to concern for panic attack. Patient and state he woke today and felt much more anxious. They state he does have a prior history of anxiety and many years ago used to have panic attacks and take lorazepam. He states he has not needed anything in many years. They state he was recently just hospitalized for a heart attack and underwent placement of 4 stents. He states several of his medications were changed at time of discharge. He denies any chest pain, shortness of breath, headaches, dizziness, lightheadedness. Patient states he did not get much sleep last night due to this additionally. He denies fevers or chills. states he has not fallen but was more off balance today. PAST MEDICAL HISTORY:See Below PAST SURGICAL HISTORY:See Below FAMILY HISTORY:See Below SOCIAL HISTORY:See Below HOME MEDICATIONS:See Below ALLERGIES:See Below VITALS:See Below PHYSICAL EXAMINATION: GENERAL: alert, unwell appearing, well nourished, non-toxic EYE EXAM: normal conjunctiva, PERRL and EOM's grossly intact OROPHARYNX: no exudate, no erythema, lips, buccal mucosa, and tongue normal and mucous membranes are dry NECK: supple, no nuchal rigidity, no adenopathy, non-tender LUNGS: Clear to auscultation. Normal chest wall mechanics, no w/r/r HEART: no murmurs, S1 normal and S2 normal ABDOMEN: abdomen soft, non-tender, normo-active bowel sounds, no masses, no rebound or guarding. BACK: Back is symmetrical on inspection and there is no deformity, no midline tenderness, no CVA tenderness. SKIN: no rashes, petechiae, orbruising UPPER EXTREMITIES: upper extremities are grossly normal. FROM, nml pulses b/l. LOWER EXTREMITIES: No pitting edema. FROM, nml pulses b/l. NEURO EXAM: Normal sensorium, cranial nerves II-XII grossly intact, normal speech, no facial droop,nogross weakness of arms, no gross weakness of legs. Gross sensation intact. No limb ataxia. Patient alternates between somnolence and agitation but can answer questions of orientation appropriately, he states he feels restless and unsettled Vital Signs: reviewed and remarkable Differential Diagnosis: Anxiety, dehydration, electrolyte abnormality, sleep deprivation, dysrhythmia, CELI, medication ADR, as well as others were considered MEDICAL DECISION MAKING: This is an 84 yo male who presents to the ER with due to concern for anxiety. Patient recently hospitalized and underwent PCI for ACS. Medications were changed during his stay. and patient feel the hospitalization and med changes my have triggered his anxiety again which had been well controlled for many years. He was afebrile and VSS. Labs drawn and sent, IV established, EKG and CXR performed and interpreted at bedside, and patient placed on telemetry. No EKG changes. He was given tylenol and ativan 0.25 mg with some improvement. He was then able to given a urine specimen although was off balance with ambulation. He was sent for CT head additionally which was reasuring. He still c/o anxiety and so was given an additional 0.25 mg of ativan. He then rested and appeared more comfortable for a while. He was more clear and less emotionally labile upon repeat evaluation, unfortunately he was more ataxic with ambulatory trial and given risk of fall especially with blood thinners recently added and I discussed concern for safe discharge plan. She is in agreement with inpatient monitoring until he his improved at this point given fall risk. Case discussed with the hospitalist team for additional evaluation and mgmt. Consultation(s): 0108: Discussed with Dr. Snowden, [facility] hospitalist team, for additional evaluation and management. ER Treatment Provided: See below Diagnostics Interpreted By Me: -ECG: Normal sinus at 63, left axis, normal intervals, inverted T waves in 3 and aVF, no ST elevations, these are unchanged from July 02, 2024 -Cardiac Monitoring: An order was placed for continuous cardiac monitoring. The monitor shows a rate of 70 with normal sinus rhythm. -Laboratory studies: As stated above and show below. -Imaging studies: X-ray Chest: A single view study of the chest was reviewed and was negative for cardiomegaly, focal infiltrate, effusion, pulmonary edema, or wide mediastinum. Triage Nursing Note Reviewed Prior/Outside Records Reviewed - discharge summary from July 02 reviewed Past Med/Surg History Problem List (Updated 07/08/24 @ 10:15 by Yaya Oseguera MD) Delirium Anxiety (Acute) Ataxia (Acute) Dyslipidemia, goal LDL below 70 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 S/P right coronary artery (RCA) stent placement Non-sustained ventricular tachycardia (Acute) NSTEMI (non-ST elevated myocardial infarction) (Acute) ACS (acute coronary syndrome) STEMI (ST elevation myocardial infarction) Chest pain (Acute) Trochanteric bursitis of right hip Osteoarthritis of finger Strain of left knee Vitamin D deficiency Blind left eye History of pituitary adenoma MCL sprain of left knee Chronic kidney disease, stage III (moderate) Neck Pain Dyslipidemia Osteopenia Prostatic hypertrophy Chronic low back pain Anxiety Hypertension (Acute) ACTH deficiency (Chronic) Panhypopituitarism (Chronic) Anemia (Chronic) 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) Chronic cholecystitis (Chronic) Medical History Aspiration pneumonia Headache Muscle cramps at night HTN (hypertension) Acute renal failure superimposed on stage 3 chronic kidney disease Spasm of bowel Multiple renal cysts Deep vein thrombosis BPH (benign prostatic hyperplasia) IBS (irritable bowel syndrome) GERD (gastroesophageal reflux disease) Hyperthyroidism History of melanoma Hearing deficit Hypertension Hyperlipidemia Lumbar herniated disc HLD (hyperlipidemia) CKD (chronic kidney disease) Opioid dependence Surgical History Hx laparoscopic cholecystectomy (06/03/19) History of skin graft History of parotidectomy History of craniotomy Status post trigger finger release History of esophagogastroduodenoscopy (EGD) History of colonoscopy History of melanoma excision Family History Sister Family hx of colon cancer Father Tobacco use Coronary heart disease Mother Diverticulosis of intestine Sister Ovarian cancer Colon cancer Grandfather Cancer Aunt Cancer Uncle Cancer Grandmother (Maternal) Cancer Other No significant family history Social History Smoking Status: Former smoker Tobacco Type: Cigarettes Second Hand Exposure: No; Do You Dip or Chew Tobacco: No; Hx Alcohol Use: No Hx Substance Use: No Preferred Language: Icelandic Communication Ability: Effective Visual Impairment: No Limitations Principal Statistical Scientist Required: No Beliefs That Will Affect Care: None Current Living Situation: Spouse Feels Safe at Home: Yes Assistive Devices: None Allergies Allergies Allergy/AdvReac Type Severity Reaction Status Date / Time No Known Allergies Allergy Verified 07/07/24 16:47 Home Meds Home Medications Medication Instructions Recorded Confirmed multivitamin (Multiple Vitamins 1 tab PO QAM 05/27/19 07/08/24 tablet) trazodone 150 mg tablet 150 mg PO HS 10/10/19 07/08/24 ascorbic acid (vitamin C) 1,000 mg 500 mg PO QAM 03/18/20 07/08/24 tablet ferrous sulfate 325 mg (65 mg 325 mg PO QAM PRN anemia 03/18/20 07/08/24 iron) tablet (Feosol) dicyclomine 20 mg tablet 20 mg PO TID abdominal pain 11/02/21 07/08/24 dutasteride 0.5 mg-tamsulosin ER 2 cap PO HS 11/02/21 07/08/24 0.4 mg capsule ext.release 24hr mphas (Yancy) gabapentin 300 mg capsule 300 mg PO BID 11/02/21 07/08/24 bumetanide 1 mg tablet 1 mg PO QAM 01/04/22 07/08/24 doxazosin 4 mg tablet 8 mg PO HS 01/04/22 07/08/24 omeprazole 20 mg capsule,delayed 20 mg PO DAILYBB 01/04/22 07/08/24 release gabapentin 100 mg capsule 100 mg PO HS 01/03/23 07/08/24 sertraline 100 mg tablet (Zoloft) 200 mg PO QAM 01/03/23 07/08/24 hydrocortisone 5 mg tablet 10 mg PO HS 06/30/24 07/08/24 hydrocortisone 5 mg tablet 20 mg PO DAILY 06/30/24 07/08/24 methimazole 5 mg tablet 5 mg PO DAILY 06/30/24 07/08/24 potassium chloride 20 mEq 20 meq PO DAILY 06/30/24 07/08/24 tablet,extended release sucralfate 1 gram tablet 1 g PO AC 06/30/24 07/08/24 Previous Rx's Medication Instructions Recorded aspirin 81 mg tablet,delayed 81 mg PO QAM #30 tabs 02/23/19 release calcium 600 mg (as 1 tab PO BID #30 tabs 02/23/19 carbonate)-vitamin D3 5 mcg (200 unit) tablet (Calcium 600 + D(3)) magnesium 250 mg tablet 250 mg PO QAM #30 tabs 02/23/19 hydroxyzine HCl 10 mg tablet 10 mg PO Q6H PRN anxiety #30 tabs 10/14/19 ondansetron 4 mg disintegrating 4 mg PO Q6H PRN nausea and 01/04/22 tablet vomiting #14 tabs atorvastatin 40 mg tablet 40 mg PO QAM 30 days #30 tabs 07/02/24 isosorbide mononitrate 30 mg 30 mg PO QAM 30 days #30 tabs 07/02/24 tablet,extended release 24 hr lisinopril 20 mg tablet 20 mg PO QAM 30 days #30 tabs 07/02/24 metoprolol succinate 50 mg 50 mg PO BID 30 days #60 tabs 07/02/24 tablet,extended release 24 hr ticagrelor 90 mg tablet (Brilinta) 90 mg PO BID 30 days #60 tabs 07/02/24 Results & Data (ED) Vital Signs Vital Signs - 24 hr 07/07/24 17:47 07/07/24 18:05 07/07/24 18:10 Temperature 36.7 C Temperature Source Oral Pulse Rate 72 66 Pulse Rate [Apical] Pulse Rate from SpO2 Sensor Pulse Rhythm [Apical] Pulse Strength [Apical] Respiratory Rate 20 Respiratory Effort / Characteristics Non-Labored Spontaneous Respiratory Depth Normal Respiratory Pattern Regular Blood Pressure 118/66 130/74 Blood Pressure [Left Arm] Blood Pressure Mean 83 87 Blood Pressure Mean [Left Arm] Blood Pressure Position [Left Arm] Pulse Oximetry 98 Oxygen Delivery Method Room Air Sepsis Recent Fever Within 48 Hours No Sepsis New/Unexplained Change in Mental Status N/A Sepsis Action Taken by Nursing No Action Required 07/07/24 18:15 07/07/24 19:06 07/07/24 19:06 Temperature Temperature Source Pulse Rate 66 70 Pulse Rate [Apical] 73 Pulse Rate from SpO2 Sensor 71 Pulse Rhythm [Apical] Pulse Strength [Apical] Respiratory Rate 26 H 20 31 H Respiratory Effort / Characteristics Respiratory Depth Respiratory Pattern Blood Pressure Blood Pressure [Left Arm] 130/74 Blood Pressure Mean Blood Pressure Mean [Left Arm] 92 Blood Pressure Position [Left Arm] Pulse Oximetry 94 94 Oxygen Delivery Method Room Air Sepsis Recent Fever Within 48 Hours Sepsis New/Unexplained Change in Mental Status Sepsis Action Taken by Nursing 07/07/24 19:08 07/07/24 20:06 07/07/24 21:00 Temperature Temperature Source Pulse Rate 69 61 Pulse Rate [Apical] Pulse Rate from SpO2 Sensor Pulse Rhythm [Apical] Pulse Strength [Apical] Respiratory Rate 29 H 21 Respiratory Effort / Characteristics Respiratory Depth Respiratory Pattern Blood Pressure Blood Pressure [Left Arm] Blood Pressure Mean Blood Pressure Mean [Left Arm] Blood Pressure Position [Left Arm] Pulse Oximetry 94 Oxygen Delivery Method Room Air Sepsis Recent Fever Within 48 Hours Sepsis New/Unexplained Change in Mental Status Sepsis Action Taken by Nursing 07/07/24 21:42 07/07/24 21:55 07/07/24 21:55 Temperature Temperature Source Pulse Rate 59 L Pulse Rate [Apical] 60 Pulse Rate from SpO2 Sensor Pulse Rhythm [Apical] Pulse Strength [Apical] Respiratory Rate 15 17 Respiratory Effort / Characteristics Respiratory Depth Respiratory Pattern Blood Pressure 128/52 L Blood Pressure [Left Arm] 128/52 L Blood Pressure Mean 96 Blood Pressure Mean [Left Arm] 77 Blood Pressure Position [Left Arm] Pulse Oximetry 95 Oxygen Delivery Method Room Air Sepsis Recent Fever Within 48 Hours Sepsis New/Unexplained Change in Mental Status Sepsis Action Taken by Nursing 07/07/24 22:00 07/07/24 22:00 07/07/24 22:00 Temperature Temperature Source Pulse Rate Pulse Rate [Apical] Pulse Rate from SpO2 Sensor Pulse Rhythm [Apical] Pulse Strength [Apical] Respiratory Rate Respiratory Effort / Characteristics Respiratory Depth Respiratory Pattern Blood Pressure 93/71 L 93/71 L 93/71 L Blood Pressure [Left Arm] Blood Pressure Mean 79 79 79 Blood Pressure Mean [Left Arm] Blood Pressure Position [Left Arm] Pulse Oximetry Oxygen Delivery Method Sepsis Recent Fever Within 48 Hours Sepsis New/Unexplained Change in Mental Status Sepsis Action Taken by Nursing 07/07/24 22:03 07/07/24 22:11 07/07/24 22:12 Temperature Temperature Source Pulse Rate 62 62 63 Pulse Rate [Apical] Pulse Rate from SpO2 Sensor Pulse Rhythm [Apical] Pulse Strength [Apical] Respiratory Rate 17 16 Respiratory Effort / Characteristics Respiratory Depth Respiratory Pattern Blood Pressure Blood Pressure [Left Arm] Blood Pressure Mean Blood Pressure Mean [Left Arm] Blood Pressure Position [Left Arm] Pulse Oximetry Oxygen Delivery Method Sepsis Recent Fever Within 48 Hours Sepsis New/Unexplained Change in Mental Status Sepsis Action Taken by Nursing 07/07/24 22:31 07/07/24 22:31 07/07/24 23:00 Temperature Temperature Source Pulse Rate 66 Pulse Rate [Apical] Pulse Rate from SpO2 Sensor Pulse Rhythm [Apical] Pulse Strength [Apical] Respiratory Rate 17 Respiratory Effort / Characteristics Respiratory Depth Respiratory Pattern Blood Pressure 131/70 131/70 Blood Pressure [Left Arm] Blood Pressure Mean 93 93 Blood Pressure Mean [Left Arm] Blood Pressure Position [Left Arm] Pulse Oximetry Oxygen Delivery Method Sepsis Recent Fever Within 48 Hours Sepsis New/Unexplained Change in Mental Status Sepsis Action Taken by Nursing 07/07/24 23:19 07/07/24 23:54 07/08/24 00:00 Temperature Temperature Source Pulse Rate 63 Pulse Rate [Apical] 61 67 Pulse Rate from SpO2 Sensor 62 Pulse Rhythm [Apical] Regular Regular Pulse Strength [Apical] Normal Normal Respiratory Rate 16 18 16 Respiratory Effort / Characteristics Non-Labored Spontaneous Non-Labored Spontaneous Respiratory Depth Normal Normal Respiratory Pattern Regular Regular Blood Pressure Blood Pressure [Left Arm] 142/77 H Blood Pressure Mean Blood Pressure Mean [Left Arm] 98 Blood Pressure Position [Left Arm] Lying Pulse Oximetry 93 Oxygen Delivery Method Sepsis Recent Fever Within 48 Hours Sepsis New/Unexplained Change in Mental Status Sepsis Action Taken by Nursing 07/08/24 00:00 07/08/24 00:00 07/08/24 00:00 Temperature Temperature Source Pulse Rate Pulse Rate [Apical] Pulse Rate from SpO2 Sensor Pulse Rhythm [Apical] Pulse Strength [Apical] Respiratory Rate Respiratory Effort / Characteristics Respiratory Depth Respiratory Pattern Blood Pressure 142/77 H 142/77 H 142/77 H Blood Pressure [Left Arm] Blood Pressure Mean 109 109 109 Blood Pressure Mean [Left Arm] Blood Pressure Position [Left Arm] Pulse Oximetry Oxygen Delivery Method Sepsis Recent Fever Within 48 Hours Sepsis New/Unexplained Change in Mental Status Sepsis Action Taken by Nursing 07/08/24 00:00 07/08/24 00:03 07/08/24 00:12 Temperature Temperature Source Pulse Rate 80 61 Pulse Rate [Apical] Pulse Rate from SpO2 Sensor Pulse Rhythm [Apical] Pulse Strength [Apical] Respiratory Rate 20 14 Respiratory Effort / Characteristics Respiratory Depth Respiratory Pattern Blood Pressure 142/77 H Blood Pressure [Left Arm] Blood Pressure Mean 109 Blood Pressure Mean [Left Arm] Blood Pressure Position [Left Arm] Pulse Oximetry Oxygen Delivery Method Sepsis Recent Fever Within 48 Hours Sepsis New/Unexplained Change in Mental Status Sepsis Action Taken by Nursing 07/08/24 00:31 07/08/24 01:06 Temperature Temperature Source Pulse Rate 62 Pulse Rate [Apical] Pulse Rate from SpO2 Sensor 63 Pulse Rhythm [Apical] Pulse Strength [Apical] Respiratory Rate 20 Respiratory Effort / Characteristics Respiratory Depth Respiratory Pattern Blood Pressure 117/56 L Blood Pressure [Left Arm] Blood Pressure Mean 76 Blood Pressure Mean [Left Arm] Blood Pressure Position [Left Arm] Pulse Oximetry 96 Oxygen Delivery Method Sepsis Recent Fever Within 48 Hours Sepsis New/Unexplained Change in Mental Status Sepsis Action Taken by Nursing Laboratory Data 07/08/24 03:22 07/08/24 03:22 Lab Results 07/07/24 07/07/24 07/07/24 Range/Units 18:00 19:16 20:26 WBC 11.32 H (4.8-10.8) K/ul RBC 4.01 L (4.70-6.10) M/uL Hgb 13.0 L (14.0-18.0) g/dl Hct 37.4 L (42.0-52.0) % MCV 93.3 (80.0-100.0) fL MCH 32.4 (25.0-34.0) pg MCHC 34.8 (32.0-36.0) g/dL RDW Std Deviation 44.1 (36.4-46.3) fL RDW Coeff of Mehnaz 12.9 (11.5-14.5) % Plt Count 170 (130-400) K/uL MPV 10.7 (9.4-12.4) fL Immature Gran % (Auto) 0.8 % Neut % (Auto) 58.8 % Lymph % (Auto) 26.1 % [place] % (Auto) 8.1 % Eos % (Auto) 5.7 % Baso % (Auto) 0.5 % Neut # (Auto) 6.64 H (1.40-6.50) K/uL Lymph # (Auto) 2.96 (1.20-3.40) K/uL [place] # (Auto) 0.92 H (0.11-0.59) K/uL Eos # (Auto) 0.65 H (0.00-0.50) K/uL Baso # (Auto) 0.06 (0.00-0.20) K/uL Immature Gran # (Auto) 0.09 (0.01-0.20) K/uL Sodium 134 L (136-145) mmol/L Potassium 4.5 (3.5-5.1) mmol/L Chloride 101 (98-107) mmol/L Carbon Dioxide 26 (21-32) mmol/L Anion Gap 7 (3-11) BUN 47 H (6-23) mg/dl Creatinine 1.81 H (0.6-1.4) mg/dl Est Cr Clr Drug Dosing Not Reportable eGFR 36.64 BUN/Creatinine Ratio 26.0 H (10-20) Glucose 95 (70-99(Fasting)) mg/dl POC Glucose 117 H (70-99) mg/dl Calcium 9.3 (8.6-10.3) mg/dl Magnesium 2.2 (1.7-2.4) mg/dl Total Bilirubin 0.5 (0.2-1.0) mg/dl AST 22 (13-39) U/L ALT 20 (7-52) U/L Alkaline Phosphatase 75 (34-104) U/L Total Creatine Kinase 80 (30-223) U/L Total Protein 6.6 (6.0-8.3) gm/dl Albumin 3.9 (3.4-5.0) gm/dl Globulin 2.7 (2.5-4.0) gm/dl Albumin/Globulin Ratio 1.4 (0.9-2) Urine Color Yellow Urine Appearance Clear (Clear) Urine pH >= 9.0 H (4.5-7.5) Ur Specific [place] 1.019 (1.000-1.030) Urine Protein Trace H (Negative) Urine Glucose (UA) Negative (Negative) Urine Ketones Trace H (Negative) Urine Blood Negative (Negative) Urine Nitrite Negative (Negative) Urine Bilirubin Negative (Negative) Urine Urobilinogen Negative (Negative) Ur Leukocyte Esterase Trace H (Negative) Urine WBC (Auto) 0-5 (0-5) /hpf Urine RBC (Auto) 3-5 H (0-2) /hpf U Hyaline Cast (Auto) 0-2 (0-2) /lpf U Epithel Cells (Auto) 0-2 (0-2) /hpf Urine Bacteria (Auto) None Seen (None Seen) Administered Medications Acetaminophen (Acetaminophen 325 Mg Tab) 650 mg PO QID PRN PRN Reason: pain/fever Stop: 08/07/24 01:58 Last Admin: 07/08/24 13:12 Dose: 650 mg Documented By: JOSELIN Aspirin (Aspirin 81 Mg Ectab) 81 mg PO QAM [facility] Stop: 08/07/24 08:59 Last Admin: 07/08/24 09:29 Dose: 81 mg Documented By: CRUZ Atorvastatin Calcium (Atorvastatin 40 Mg Tab) 40 mg PO QAM [facility] Stop: 08/07/24 08:59 Last Admin: 07/08/24 09:31 Dose: 40 mg Documented By: CRUZ Heparin Sodium (Porcine) (Heparin Sod 5,000 Unit/0.5 Ml Vial) 5,000 units SQ Q8 [facility] Stop: 08/07/24 05:59 Last Admin: 07/08/24 06:19 Dose: 5,000 units Documented By: TYRESE Hydrocortisone (Hydrocortisone 10 Mg Tab) 20 mg PO DAILY [facility] Stop: 08/07/24 08:59 Last Admin: 07/08/24 09:32 Dose: 20 mg Documented By: CRZU Hydroxyzine HCl (Hydroxyzine Hcl 10 Mg Tab) 10 mg PO QID PRN PRN Reason: Anxiety Stop: 08/07/24 01:57 Last Admin: 07/08/24 02:59 Dose: 10 mg Documented By: ANGEL Sodium Chloride (Nss) 500 mls @ 60 mls/hr IV .Q8H20M ONE Stop: 07/08/24 17:19 Last Admin: 07/08/24 10:40 Dose: 60 mls/hr Documented By: CRUZ Isosorbide Mononitrate (Isosorbide [place] Extended Rel 30 Mg Tabcr) [facility] [place] Stop: 08/07/24 08:59 Last Admin: 07/08/24 09:33 Dose: 30 mg Documented By: CRUZ Methimazole (Methimazole 5 Mg Tablet) 5 mg PO DAILY [facility] Stop: 08/07/24 08:59 Last Admin: 07/08/24 09:33 Dose: 5 mg Documented By: CRUZ Metoprolol Succinate (Metoprolol Succ 50mg Ext Rel Tab) 50 mg PO BID [facility] Stop: 08/07/24 08:59 Last Admin: 07/08/24 09:33 Dose: 50 mg Documented By: CRUZ Multivitamins (Multivitamin Tab) 1 [facility] [place] Stop: 08/07/24 08:59 Last Admin: 07/08/24 09:34 Dose: 1 tab Documented By: CRUZ Pantoprazole Sodium (Pantoprazole 40 Mg Tab) 40 mg PO DAILYBB TOD Stop: 08/07/24 06:29 Last Admin: 07/08/24 06:19 Dose: 40 mg Documented By: TYRESE Sertraline HCl (Sertraline Hcl 100 Mg Tablet) 200 mg PO QAM TOD Stop: 08/07/24 08:59 Last Admin: 07/08/24 09:34 Dose: 200 mg Documented By: CRUZ Sucralfate (Sucralfate 1 Gm Tab) 1 gm PO AC TOD Stop: 08/07/24 07:29 Last Admin: 07/08/24 13:00 Dose: 1 gm Documented By: Admin: 07/08/24 08:57 Dose: 1 gm Documented By: CRUZ Ticagrelor (Ticagrelor 90 Mg Tab) 90 mg PO BID TOD Stop: 08/07/24 08:59 Last Admin: 07/08/24 11:11 Dose: 90 mg Documented By: JOSELIN Discontinued Medications Hydroxyzine HCl (Hydroxyzine Hcl 10 Mg Tab) 10 mg PO NOW STA Stop: 07/08/24 01:53 Last Admin: 07/08/24 02:26 Dose: 10 mg Documented By: ANGEL Hydroxyzine HCl (Hydroxyzine Hcl 10 Mg Tab) 10 mg PO NOW STA Stop: 07/08/24 02:54 Last Admin: 07/08/24 03:13 Dose: Not Given Documented By: ANGEL Acetaminophen (Ofirmev) 1,000 mg in 100 mls @ 400 mls/hr IV NOW STA Stop: 07/07/24 18:41 Last Infusion: 07/07/24 19:17 Dose: Infused Documented By: Admin: 07/07/24 18:40 Dose: 400 mls/hr Documented By: LENA Magnesium Sulfate/Dextrose (Magnesium Sulfate / D5w) 1 gm in 100 mls @ 100 mls/hr IV NOW STA Stop: 07/07/24 22:37 Last Infusion: 07/07/24 23:07 Dose: Infused Documented By: Admin: 07/07/24 21:59 Dose: 100 mls/hr Documented By: PRIETO Sodium Chloride (Nss) 500 mls @ 75 mls/hr IV .Q6H40M ONE Stop: 07/08/24 08:03 Last Infusion: 07/08/24 10:55 Dose: Infused Documented By: Admin: 07/08/24 03:27 Dose: 75 mls/hr Documented By: TYRESE Lidocaine (Lidocaine 5% 1 Patch) 1 patch TD NOW STA Stop: 07/07/24 21:39 Last Admin: 07/07/24 21:59 Dose: 1 patch Documented By: PRIETO Lorazepam (Lorazepam 2 Mg/1 Ml Vial) 0.25 mg IV NOW STA Stop: 07/07/24 18:28 Last Admin: 07/07/24 18:40 Dose: 0.25 mg Documented By: LENA Lorazepam (Lorazepam 2 Mg/1 Ml Vial) 0.25 mg IV NOW STA Stop: 07/07/24 20:16 Last Admin: 07/07/24 20:23 Dose: 0.25 mg Documented By: PRIETO Miscellaneous (Dutasteride-Tamsulosin [Yancy]: Order Awaiting Action) 1 each N/A QS TOD Stop: 08/07/24 07:59 Last Admin: 07/08/24 10:30 Dose: Not Given Documented By: CRUZ Olanzapine (Olanzapine 10 Mg/2.1 Ml Sdv) 2.5 mg IM NOW STA Stop: 07/08/24 03:44 Last Admin: 07/08/24 03:49 Dose: 2.5 mg Documented By: TYRESE Olanzapine (Olanzapine 10 Mg/2.1 Ml Sdv) Confirm Administered Dose 10 mg IM .STK-MED ONE Stop: 07/08/24 03:48 Last Admin: 07/08/24 03:51 Dose: Not Given Documented By: TYRESE Imaging Data Radiologist's Impression: Chest X-Ray 07/07/24 17:51 XR chest 1V portable HISTORY: 84 years-old Male Pain acute chest pain COMPARISON: 06/30/2024 TECHNIQUE: AP view of the chest FINDINGS: Cardiac silhouette is normal. Lungs are clear. No pneumothorax or pleural effusion. Bones appear grossly intact. There is unchanged right hemidiaphragmatic elevation. IMPRESSION: No acute process ACT 112: Negative or not required by law. The above report was generated using voice recognition software. It may contain grammatical, syntax or spelling errors. Electronically signed by: Bharathi Ya M.D. 07/07/2024 6:[address] 07/07/24 22:34 Exam(s): CT HEAD Without Contrast EXAM: CT Head Without Intravenous Contrast CLINICAL HISTORY: Reason for exam: weakness. TECHNIQUE: Axial computed tomography images of the head/brain without intravenous contrast. CTDI is 35.37 mGy and DLP is 624.41 mGy-cm. Automated exposure control was utilized for the study. A dose lowering technique was utilized adhering to the principles of ALARA. COMPARISON: No relevant prior studies available. FINDINGS: No acute intracranial hemorrhage. No midline shift or mass effect. The territorial carlos-white matter differentiation is maintained throughout. Age-related cerebral volume loss. Periventricular and subcortical white matter hypoattenuation, consistent with chronic microangiopathy. The visualized orbits appear grossly unremarkable. The calvarium is intact. The visualized paranasal sinuses and mastoid air cells are grossly clear. IMPRESSION: No acute intracranial hemorrhage, midline shift, or mass effect. Electronically signed by: Reid Ching MD 07/08/24 00:31 AM Discharge Plan Visit Data Chief Complaint: Anxiety Stated Complaint: EVERYTHING HURTS, UNSTABLE, DON'T FEEL WELL ED Provider: Ericka Mccurdy Discharge Problem: Ataxia, Anxiety Patient Disposition: Admitted As Inpatient Discharge Instructions Interventions: ED Discharge Assessment Last Done: 07/08/24 02:23
[2024-07-08 01:41] LABS: Creatine Kinase 80 U/L (30-223)
--- NOTE | 2024-07-08 01:55 | History & Physical Report ---
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 Heparin subcu Full code Patient requests for to be given updates regarding care. Ms. Silvana Wilkerson, contact #[phone]. Text document was generated using [employer] voice recognition software. It may contain grammatical or spelling errors. Kindly contact undersigned for clarification of any documentation item in question. History of Present Illness Chief Complaint: Anxious Primary Care Provider: Shalom Lieberman MD History obtained from patient and records. 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 Recent confinement last week for NSTEMI status post successful PCI of RCA and mid circumflex. Patient discharged on DAPT. Patient more anxious upon return home. Denies chest pain, SOB, headache symptoms. Denies suicidality. Taking lorazepam for panic attacks. Patient not sleeping well. Patient more confused and unstable on feet after IV Ativan administration in the ER. Medical History as above Surgical History : Pituitary tumor removal Family History : Breast cancer, heart disease Personal/Social history : Past tobacco abuse, no EtOH intake Allergies Allergy/AdvReac Type Severity Reaction Status Date / Time No Known Allergies Allergy Verified 07/07/24 16:47 Home Medications Medication Instructions Recorded Confirmed Type aspirin 81 mg tablet,delayed 81 mg PO QAM #30 tabs 02/23/19 07/08/24 Rx release calcium 600 mg (as 1 tab PO BID #30 tabs 02/23/19 07/08/24 Rx carbonate)-vitamin D3 5 mcg (200 unit) tablet (Calcium 600 + D(3)) magnesium 250 mg tablet 250 mg PO QAM #30 tabs 02/23/19 07/08/24 Rx multivitamin (Multiple Vitamins 1 tab PO QAM 05/27/19 07/08/24 History tablet) trazodone 150 mg tablet 150 mg PO HS 10/10/19 07/08/24 History hydroxyzine HCl 10 mg tablet 10 mg PO Q6H PRN anxiety #30 tabs 10/14/19 07/08/24 Rx ascorbic acid (vitamin C) 1,000 mg 500 mg PO QAM 03/18/20 07/08/24 History tablet ferrous sulfate 325 mg (65 mg 325 mg PO QAM PRN anemia 03/18/20 07/08/24 History iron) tablet (Feosol) dicyclomine 20 mg tablet 20 mg PO TID abdominal pain 11/02/21 07/08/24 History dutasteride 0.5 mg-tamsulosin ER 2 cap PO HS 11/02/21 07/08/24 History 0.4 mg capsule ext.release 24hr mphas (Yancy) gabapentin 300 mg capsule 300 mg PO BID 11/02/21 07/08/24 History bumetanide 1 mg tablet 1 mg PO QAM 01/04/22 07/08/24 History doxazosin 4 mg tablet 8 mg PO HS 01/04/22 07/08/24 History omeprazole 20 mg capsule,delayed 20 mg PO DAILYBB 01/04/22 07/08/24 History release ondansetron 4 mg disintegrating 4 mg PO Q6H PRN nausea and 01/04/22 07/08/24 Rx tablet vomiting #14 tabs gabapentin 100 mg capsule 100 mg PO HS 01/03/23 07/08/24 History sertraline 100 mg tablet (Zoloft) 200 mg PO QAM 01/03/23 07/08/24 History hydrocortisone 5 mg tablet 10 mg PO HS 06/30/24 07/08/24 History hydrocortisone 5 mg tablet 20 mg PO DAILY 06/30/24 07/08/24 History methimazole 5 mg tablet 5 mg PO DAILY 06/30/24 07/08/24 History potassium chloride 20 mEq 20 meq PO DAILY 06/30/24 07/08/24 History tablet,extended release sucralfate 1 gram tablet 1 g PO AC 06/30/24 07/08/24 History atorvastatin 40 mg tablet 40 mg PO QAM 30 days #30 tabs 07/02/24 07/08/24 Rx isosorbide mononitrate 30 mg 30 mg PO QAM 30 days #30 tabs 07/02/24 07/08/24 Rx tablet,extended release 24 hr lisinopril 20 mg tablet 20 mg PO QAM 30 days #30 tabs 07/02/24 07/08/24 Rx metoprolol succinate 50 mg 50 mg PO BID 30 days #60 tabs 07/02/24 07/08/24 Rx tablet,extended release 24 hr ticagrelor 90 mg tablet (Brilinta) 90 mg PO BID 30 days #60 tabs 07/02/24 07/08/24 Rx Past Med/Surg History Problem List (Updated 07/08/24 @ 10:15 by Yaya Oseguera MD) Delirium Anxiety (Acute) Ataxia (Acute) Dyslipidemia, goal LDL below 70 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 S/P right coronary artery (RCA) stent placement Non-sustained ventricular tachycardia (Acute) NSTEMI (non-ST elevated myocardial infarction) (Acute) ACS (acute coronary syndrome) STEMI (ST elevation myocardial infarction) Chest pain (Acute) Trochanteric bursitis of right hip Osteoarthritis of finger Strain of left knee Vitamin D deficiency Blind left eye History of pituitary adenoma MCL sprain of left knee Chronic kidney disease, stage III (moderate) Neck Pain Dyslipidemia Osteopenia Prostatic hypertrophy Chronic low back pain Anxiety Hypertension (Acute) ACTH deficiency (Chronic) Panhypopituitarism (Chronic) Anemia (Chronic) 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) Chronic cholecystitis (Chronic) Medical History Aspiration pneumonia Headache Muscle cramps at night HTN (hypertension) Acute renal failure superimposed on stage 3 chronic kidney disease Spasm of bowel Multiple renal cysts Deep vein thrombosis BPH (benign prostatic hyperplasia) IBS (irritable bowel syndrome) GERD (gastroesophageal reflux disease) Hyperthyroidism History of melanoma Hearing deficit Hypertension Hyperlipidemia Lumbar herniated disc HLD (hyperlipidemia) CKD (chronic kidney disease) Opioid dependence Surgical History Hx laparoscopic cholecystectomy (06/03/19) History of skin graft History of parotidectomy History of craniotomy Status post trigger finger release History of esophagogastroduodenoscopy (EGD) History of colonoscopy History of melanoma excision Family History Sister Family hx of colon cancer Father Tobacco use Coronary heart disease Mother Diverticulosis of intestine Sister Ovarian cancer Colon cancer Grandfather Cancer Aunt Cancer Uncle Cancer Grandmother (Maternal) Cancer Other No significant family history Social History Smoking Status: Former smoker Tobacco Type: Cigarettes Second Hand Exposure: No; Do You Dip or Chew Tobacco: No; Hx Alcohol Use: No Hx Substance Use: No Preferred Language: Ugandan Communication Ability: Effective Visual Impairment: No Limitations Registered Dietetic Technician Required: No Beliefs That Will Affect Care: None Current Living Situation: Spouse Feels Safe at Home: Yes Assistive Devices: None Review of Systems Review of Systems: As per HPI, all other systems reviewed and negative Physical Exam Physical Exam: GENERAL: Restless, oriented, no respiratory distress SKIN: Pallor, warm HEENT: Pale palpebral conjunctivae, no ptosis, dry buccal mucosa NECK : Supple, no tenderness CHEST : CTA, no tenderness HEART : RRR, no obvious murmurs ABDOMEN: no distention, nontender EXTREMITIES : No LE swelling/tenderness, no other conspicuous deformities noted NEUROLOGIC : Coherent, no facial asymmetry, restless, no other gross focality Results & Data Results & Data Vital Signs (Past 12 Hours) Vital Signs Temp Pulse Pulse Resp BP BP Pulse Ox 07/08/24 00:00 67 16 142/77 H 07/07/24 23:19 61 16 07/07/24 22:11 62 07/07/24 21:55 60 17 128/52 L 95 07/07/24 19:08 94 07/07/24 19:06 73 20 130/74 94 07/07/24 18:10 66 07/07/24 17:47 36.7 C 72 20 118/66 98 O2 Del Method 07/08/24 00:00 07/07/24 23:19 07/07/24 22:11 07/07/24 21:55 Room Air 07/07/24 19:08 Room Air 07/07/24 19:06 Room Air 07/07/24 18:10 07/07/24 17:47 Room Air Laboratory Results Laboratory Results WBC 11.32 K/ul (4.8-10.8) H 07/07/24 18:00 RBC 4.01 M/uL (4.70-6.10) L 07/07/24 18:00 Hgb 13.0 g/dl (14.0-18.0) L 07/07/24 18:00 Hct 37.4 % (42.0-52.0) L 07/07/24 18:00 MCV 93.3 fL (80.0-100.0) 07/07/24 18:00 MCH 32.4 pg (25.0-34.0) 07/07/24 18:00 MCHC 34.8 g/dL (32.0-36.0) 07/07/24 18:00 RDW Std Deviation 44.1 fL (36.4-46.3) 07/07/24 18:00 RDW Coeff of Mehnaz 12.9 % (11.5-14.5) 07/07/24 18:00 Plt Count 170 K/uL (130-400) 07/07/24 18:00 MPV 10.7 fL (9.4-12.4) 07/07/24 18:00 Immature Gran % (Auto) 0.8 % 07/07/24 18:00 Neut % (Auto) 58.8 % 07/07/24 18:00 Lymph % (Auto) 26.1 % 07/07/24 18:00 [place] % (Auto) 8.1 % 07/07/24 18:00 Eos % (Auto) 5.7 % 07/07/24 18:00 Baso % (Auto) 0.5 % 07/07/24 18:00 Neut # (Auto) 6.64 K/uL (1.40-6.50) H 07/07/24 18:00 Lymph # (Auto) 2.96 K/uL (1.20-3.40) 07/07/24 18:00 Independence # (Auto) 0.92 K/uL (0.11-0.59) H 07/07/24 18:00 Eos # (Auto) 0.65 K/uL (0.00-0.50) H 07/07/24 18:00 Baso # (Auto) 0.06 K/uL (0.00-0.20) 07/07/24 18:00 Immature Gran # (Auto) 0.09 K/uL (0.01-0.20) 07/07/24 18:00 Sodium 134 mmol/L (136-145) L 07/07/24 18:00 Potassium 4.5 mmol/L (3.5-5.1) 07/07/24 18:00 Chloride 101 mmol/L (98-107) 07/07/24 18:00 Carbon Dioxide 26 mmol/L (21-32) 07/07/24 18:00 Anion Gap 7 (3-11) 07/07/24 18:00 BUN 47 mg/dl (6-23) H 07/07/24 18:00 Creatinine 1.81 mg/dl (0.6-1.4) H 07/07/24 18:00 Est Cr Clr Drug Dosing Not Reportable 07/07/24 18:00 eGFR 36.64 07/07/24 18:00 BUN/Creatinine Ratio 26.0 (10-20) H 07/07/24 18:00 Glucose 95 mg/dl (70-99(Fasting)) 07/07/24 18:00 POC Glucose 117 mg/dl (70-99) H 07/07/24 19:16 Calcium 9.3 mg/dl (8.6-10.3) 07/07/24 18:00 Magnesium 2.2 mg/dl (1.7-2.4) 07/07/24 18:00 Total Bilirubin 0.5 mg/dl (0.2-1.0) 07/07/24 18:00 AST 22 U/L (13-39) 07/07/24 18:00 ALT 20 U/L (7-52) 07/07/24 18:00 Alkaline Phosphatase 75 U/L (34-104) 07/07/24 18:00 Total Creatine Kinase 80 U/L (30-223) 07/07/24 18:00 Total Protein 6.6 gm/dl (6.0-8.3) 07/07/24 18:00 Albumin 3.9 gm/dl (3.4-5.0) 07/07/24 18:00 Globulin 2.7 gm/dl (2.5-4.0) 07/07/24 18:00 Albumin/Globulin Ratio 1.4 (0.9-2) 07/07/24 18:00 Urine Color Yellow 07/07/24 20: Urine Appearance Clear (Clear) 07/07/24: Urine pH >= 9.0 (4.5-7.5) H 07/07/24 20: Ur Specific Harts 1.019 (1.000-1.030) 07/07/24 20: Urine Protein Trace (Negative) H 07/07/24 20: Urine Glucose (UA) Negative (Negative) 07/07/24: Urine Ketones Trace (Negative) H 07/07/24 20: Urine Blood Negative (Negative) 07/07/24: Urine Nitrite Negative (Negative) 07/07/24: Urine Bilirubin Negative (Negative) 07/07/24 20: Urine Urobilinogen Negative (Negative) 07/07/24 20:26 Ur Leukocyte Esterase Trace (Negative) H 07/07/24 20:26 Urine WBC (Auto) 0-5 /hpf (0-5) 07/07/24 20: Urine RBC (Auto) 3-5 /hpf (0-2) H 07/07/24 20: U Hyaline Cast (Auto) 0-2 /lpf (0-2) 07/07/24 20: U Epithel Cells (Auto) 0-2 /hpf (0-2) 07/07/24 20: Urine Bacteria (Auto) None Seen (None Seen) 07/07/24 20: Impressions Chest X-Ray 07/07/24 17:51 XR chest 1V portable HISTORY: 84 years-old Male Pain acute chest pain COMPARISON: 06/30/2024 TECHNIQUE: AP view of the chest FINDINGS: Cardiac silhouette is normal. Lungs are clear. No pneumothorax or pleural effusion. Bones appear grossly intact. There is unchanged right hemidiaphragmatic elevation. IMPRESSION: No acute process ACT 112: Negative or not required by law. The above report was generated using voice recognition software. It may contain grammatical, syntax or spelling errors. Electronically signed by: Bharathi Ya M.D. 07/07/2024 6:[address] 07/07/24 22:34 Exam(s): CT HEAD Without Contrast EXAM: CT Head Without Intravenous Contrast CLINICAL HISTORY: Reason for exam: weakness. TECHNIQUE: Axial computed tomography images of the head/brain without intravenous contrast. CTDI is 35.37 mGy and DLP is 624.41 mGy-cm. Automated exposure control was utilized for the study. A dose lowering technique was utilized adhering to the principles of ALARA. COMPARISON: No relevant prior studies available. FINDINGS: No acute intracranial hemorrhage. No midline shift or mass effect. The territorial carlos-white matter differentiation is maintained throughout. Age-related cerebral volume loss. Periventricular and subcortical white matter hypoattenuation, consistent with chronic microangiopathy. The visualized orbits appear grossly unremarkable. The calvarium is intact. The visualized paranasal sinuses and mastoid air cells are grossly clear. IMPRESSION: No acute intracranial hemorrhage, midline shift, or mass effect. Electronically signed by: Reid Ching MD 07/08/24 00:31 AM Diagnostic Findings EKG as per my interpretation :Rate 65, NSR, LAD, LAFB, T wave inversion inferior leads
[2024-07-08] MEDS ORDERED: PROMETHAZINE 6.25 MG/50.25 ML BAG IV PRN (01:58)
[2024-07-08] MEDS: hydrOXYzine HCl 10 MG TAB PO STA ×2 (02:26→03:13)
[2024-07-08] MEDS: hydrOXYzine HCl 10 MG TAB PO PRN (02:59)
[2024-07-08] MEDS: SODIUM CHLORIDE 0.9% 500 ML IV ONE ×2 (03:27→10:40)
[2024-07-08] MEDS ORDERED: OLANZapine 10 MG/2.1 ML SDV IM PRN (03:43)
[2024-07-08] MEDS: OLANZapine 10 MG/2.1 ML SDV IM STA (03:49)
[2024-07-08 03:51] LABS: Basophils # (auto) 0.05 K/uL (0.00-0.20); Basophils % (auto) 0.6 %; Eosinophils # (auto) 0.64 K/uL (0.00-0.50); Eosinophils % (auto) 7.5 %; Hematocrit (blood only) 35.2 % (42.0-52.0); Hemoglobin 12.3 g/dl (14.0-18.0); Immature Granulocytes # (auto) 0.05 K/uL (0.01-0.20); Immature Granulocytes % (auto) 0.6 %; Lymphocytes # (auto) 2.24 K/uL (1.20-3.40); Lymphocytes % (auto) 26.1 %; Mean Corpuscular Hemoglobin 32.3 pg (25.0-34.0); Mean Corpuscular Hgb Conc 34.9 g/dL (32.0-36.0); Mean Corpuscular Volume 92.4 fL (80.0-100.0); Mean Platelet Volume 10.6 fL (9.4-12.4); Monocytes # (auto) 0.77 K/uL (0.11-0.59); Neutrophils # (auto) 4.83 K/uL (1.40-6.50); Neutrophils % (auto) 56.2 %; Platelet Count 164 K/uL (130-400); RDW Coefficient of Variation 12.9 % (11.5-14.5); RDW Standard Deviation 43.8 fL (36.4-46.3); Red Blood Count 3.81 M/uL (4.70-6.10); White Blood Count 8.58 K/ul (4.8-10.8)
[2024-07-08] MEDS: OLANZapine 10 MG/2.1 ML SDV IM ONE (03:51)
[2024-07-08 04:02] LABS: BUN Creatinine Ratio 25.6 (10-20); Calcium 8.6 mg/dl (8.6-10.3); Creatinine Clr Calc Pharmacy 37.6 ml/min; Potassium 4.1 mmol/L (3.5-5.1)
[2024-07-08] MEDS: HEPARIN SOD 5,000 UNIT/0.5 ML VIAL SQ SCH (06:19)
[2024-07-08] MEDS: PANTOprazole 40 MG TAB PO SCH (06:19)
[2024-07-08] MEDS: SUCRALFATE 1 GM TAB PO SCH (08:57)
[2024-07-08] MEDS: ASPIRIN 81 MG ECTAB PO SCH (09:29)
[2024-07-08] MEDS: ATORVASTATIN 40 MG TAB PO SCH (09:31)
[2024-07-08] MEDS: HYDROCORTISONE 10 MG TAB PO SCH ×2 (09:32→21:13)
[2024-07-08] MEDS: methIMAzole 5 MG TABLET PO SCH (09:33)
[2024-07-08] MEDS: ISOSORBIDE MONO EXTENDED REL 30 MG TABCR PO SCH (09:33)
[2024-07-08] MEDS: METOPROLOL SUCC 50MG EXT REL TAB PO SCH (09:33)
[2024-07-08] MEDS: MULTIVITAMIN TAB PO SCH (09:34)
[2024-07-08] MEDS: SERTRALINE HCL 100 MG TABLET PO SCH (09:34)
[2024-07-08] MEDS: TICAGRELOR 90 MG TAB PO SCH (11:11)
[2024-07-08] MEDS: ACETAMINOPHEN 325 MG TAB PO PRN (13:12)
--- NOTE | 2024-07-08 13:53 | Communication Note ---
Date of Service: July 08, 2024 Patient seen and examined. He is awake, oriented to person, place, month and year Reports his head feels 'fuzzy' Confused. unable to provide much history Moves all extremities CT head did not show any acute abnormalities Avoid opioids or NSAIDS for now Need to clarify baseline with family. May consider MRI brain CELI improving Continue IVF Reorient as appropriate Other plans as detailed in H/P this AM
[2024-07-08] MEDS: MELATONIN 3 MG TAB PO PRN (20:22)
[2024-07-08] MEDS: DOXAZosin MESYLATE 4 MG TAB PO SCH (21:12)
[2024-07-09 07:19] LABS: Hematocrit (blood only) 38.3 % (42.0-52.0); Hemoglobin 13.2 g/dl (14.0-18.0); Mean Corpuscular Hemoglobin 32.1 pg (25.0-34.0); Mean Corpuscular Hgb Conc 34.5 g/dL (32.0-36.0); Mean Corpuscular Volume 93.2 fL (80.0-100.0); Mean Platelet Volume 10.8 fL (9.4-12.4); Platelet Count 161 K/uL (130-400); RDW Coefficient of Variation 12.7 % (11.5-14.5); RDW Standard Deviation 43.6 fL (36.4-46.3); Red Blood Count 4.11 M/uL (4.70-6.10); White Blood Count 8.95 K/ul (4.8-10.8)
[2024-07-09 07:34] LABS: Albumin Globulin Ratio 1.4 (0.9-2); Albumin Level 3.6 gm/dl (3.4-5.0); Bilirubin,Total 0.6 mg/dl (0.2-1.0); Globulin 2.6 gm/dl (2.5-4.0); Phosphorus 3.9 mg/dl (2.5-4.9); Potassium 4.3 mmol/L (3.5-5.1); Total Protein 6.2 gm/dl (6.0-8.3)
[2024-07-09] MEDS: TAMSULOSIN HCL 0.4 MG CAP PO SCH (07:46)
[2024-07-09] MEDS: FINASTERIDE 5 MG TAB PO SCH (07:50)
[2024-07-09 08:05] VITALS: RESP 16; TEMP 98.2; O2SAT 98
--- NOTE | 2024-07-09 11:14 | Hospitalist Progress Note ---
Date of Service July 09, 2024 Assessment & Plan (1) Altered mental status: (2) Acute on chronic kidney failure: (3) History of CAD (coronary artery disease): (4) Prediabetes: Plan Altered mental status CT head did not show any acute abnormalities I spoke to today She reported patient has chronic LE pain and was on fentanyl for years in the past which was causing a lot of confusion/AMS, that required going to a behavioral center at some point. AMS resolved once fentanyl was stopped. She stated patient later changed doctors and was started on hydrocodone- acetaminophen and has AMS/confusion intermittently since especially when he takes it. reported she takes care of his other meds but patient takes the hydrocodone on his own. She is concerned about him being on this with the effects I reviewed PDMP which showed patient filled 180 tabs of hydrocodone/ac etaminophen 5/325 on 05/26/24 for 30 days. Patient seem to have returned to baseline mental status Avoid opioids at this time. I recommend avoiding opioids going forward due to side effects. CELI on CKD3 Baseline Cr 1.2-1.4 Cr was 1.81 on admission Got IVF. Cr down to 1.32 today Monitor Continue to hold home bumex and lisinopril for today Recent NSTEMI Continue Aspirin, brilinta Continue atorvastatin,, toprol XL, imdur Continue home hydrocortisone Get PT/OT eval I spent a total of 60 minutes coordinating, documenting and providing care for this patient excluding time spent in performance of separately billed services Admission and Anticipated Discharge Date Admission Date: July 08, 2024 Subjective Patient seen and examined He is AOx3. Does not recall what happened prior to admission Reports chronic leg pains/paresthesiae Reports weakness after trying to move around today Denied any other complaints on ROS Physical Exam Constitutional: + well hydrated; no acute distress Eyes: PERRL, conjunctivae normal, anicteric sclerae ENMT: external ear and nose normal, oropharynx normal Respiratory: normal respiratory effort, lungs clear to auscultation Cardiovascular: Rate/Rhythm: regular rate and regular rhythm Gastrointestinal (Abdomen): normal bowel sounds, soft, nontender, no hepatosplenomegaly Musculoskeletal: No pedal edema Neurologic: PERRL, EOMI, accommodation nl, no face palsy, no dysarthria Psychiatric: A+Ox3, euthymic affect Results & Data Results & Data Vital Signs (Past 12 Hours) Vital Signs Temp Pulse Pulse Resp BP BP Pulse Ox 07/09/24 08:04 36.8 C 68 16 161/69 H 98 07/09/24 07:30 67 07/09/24 03:29 36.6 C 60 18 164/74 H 95 07/09/24 00:16 36.7 C 61 18 132/72 94 O2 Del Method 07/09/24 08:04 Room Air 07/09/24 07:30 07/09/24 03:29 Room Air 07/09/24 00:16 Room Air Laboratory Results Abnormal lab results 07/09/24 Range/Units 05:59 RBC 4.11 L (4.70-6.10) M/uL Hgb 13.2 L (14.0-18.0) g/dl Hct 38.3 L (42.0-52.0) % Anion Gap 13 H (3-11) BUN 33 H (6-23) mg/dl BUN/Creatinine Ratio 25.0 H (10-20)
[2024-07-09] MEDS: IBUPROFEN 200 MG TAB PO PRN (12:11)
--- NOTE | 2024-07-09 16:09 | Discharge Summary ---
Date of Service July 09, 2024 Admission HPI Per Admitting Provider History obtained from patient and records. 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 Recent confinement last week for NSTEMI status post successful PCI of RCA and mid circumflex. Patient discharged on DAPT. Patient more anxious upon return home. Denies chest pain, SOB, headache symptoms. Denies suicidality. Taking lorazepam for panic attacks. Patient not sleeping well. Patient more confused and unstable on feet after IV Ativan administration in the ER. Medical History as above Surgical History : Pituitary tumor removal Family History : Breast cancer, heart disease Personal/Social history : Past tobacco abuse, no EtOH intake Admission Exam Per Admitting Provider GENERAL: Restless, oriented, no respiratory distress SKIN: Pallor, warm HEENT: Pale palpebral conjunctivae, no ptosis, dry buccal mucosa NECK : Supple, no tenderness CHEST : CTA, no tenderness HEART : RRR, no obvious murmurs ABDOMEN: no distention, nontender EXTREMITIES : No LE swelling/tenderness, no other conspicuous deformities noted NEUROLOGIC : Coherent, no facial asymmetry, restless, no other gross focality Principal Diagnosis Encephalopathy likely due to medication Acute on chronic kidney disease Discharge Exam Constitutional + well hydrated; no acute distress Eyes PERRL, conjunctivae normal, anicteric sclerae ENMT external ear and nose normal, oropharynx normal Respiratory normal respiratory effort, lungs clear to auscultation Cardiovascular Rate/Rhythm: regular rate and regular rhythm Gastrointestinal (Abdomen) normal bowel sounds, soft, nontender, no hepatosplenomegaly Musculoskeletal No pedal edema Neurologic PERRL, EOMI, accommodation nl, no face palsy, no dysarthria Psychiatric A+Ox3, euthymic affect Discharge Data Allergies Allergy/AdvReac Type Severity Reaction Status Date / Time No Known Allergies Allergy Verified 07/07/24 16:47 Consultations 07/08/24 01:10 ED Decision to Admit Stat Ordered Studies 07/07/24 22:34 CT head/brain wo con Stat Hospital Course (1) Altered mental status: (2) Acute on chronic kidney failure: (3) History of CAD (coronary artery disease): (4) Prediabetes: Plan Altered mental status CT head did not show any acute abnormalities I spoke to today She reported patient has chronic LE pain and was on fentanyl for years in the past which was causing a lot of confusion/AMS, that required going to a behavioral center at some point. AMS resolved once fentanyl was stopped. She stated patient later changed doctors and was started on hydrocodone- acetaminophen and has AMS/confusion intermittently since especially when he takes it. reported she takes care of his other meds but patient takes the hydrocodone on his own. She is concerned about him being on this with the effects I reviewed PDMP which showed patient filled 180 tabs of hydrocodone/acetaminophen 5/325 on 05/26/24 for 30 days. Patient seem to have returned to baseline mental status Avoid opioids at this time. I recommend avoiding opioids going forward due to side effects. CELI on CKD3 Baseline Cr 1.2-1.4 Cr was 1.81 on admission Got IVF. Cr down to 1.32 today Recent NSTEMI Continue Aspirin, brilinta Continue atorvastatin,, toprol XL, imdur Continue home hydrocortisone Total Time Total Time Spent Total Time Spent (In Minutes): 35 Total Time Includes: Examination of the Patient, Discharge Planning and Medication Reconciliation Discharge Plan Discharge Items Patient Disposition: Home - Self-Care Reason For Visit: AMS Discharge Diagnosis: Encephalopathy likely due to medication Acute on chronic kidney disease Activity: Resume your previous activity Non-emergency contact: Primary Care Provider Call non-emergency contact if: you have any medication questions Follow-up/Referrals: Shalom Lieberman MD [Primary Care Provider] - Diet: Heart Healthy Addtl Attending Provider Instructions: Mr Wilkerson You were admitted to the hospital due to confusion Your confusion was likely due to side effect of your hydrocodone Please stop taking hydrocodone and other opioids. You can follow up with pain management Please ensure follow up with your Primary Doctor It was a pleasure taking care of you Pending Studies at Discharge: No Stand-Alone Forms: My [facility] [employer], Smoking Cessation Medications and DC Order Prescriptions: Continued aspirin 81 mg tablet,delayed release (DR/EC) 81 mg PO QAM Qty: 30 0RF calcium carbonate-vitamin D3 [Calcium 600 + D(3)] 600 mg(1,500mg) -200 unit tablet 1 tab PO BID Qty: 30 0RF magnesium 250 mg tablet 250 mg PO QAM Qty: 30 0RF sertraline [Zoloft] 100 mg tablet 200 mg PO QAM dicyclomine 20 mg tablet 20 mg PO TID ascorbic acid (vitamin C) 1,000 mg tablet 500 mg PO QAM ferrous sulfate [Feosol] 325 mg (65 mg iron) tablet 325 mg PO QAM PRN (Reason: anemia) gabapentin 300 mg capsule 300 mg PO BID dutasteride-tamsulosin [Yancy] 0.5-0.4 mg capsule, ER multiphase 24 hr 2 cap PO HS gabapentin 100 mg capsule 100 mg PO HS Rx Instructions: takes 300 am/pm; extra 100mg in PM trazodone 150 mg tablet 150 mg PO HS hydroxyzine HCl 10 mg Tablet 10 mg PO Q6H PRN (Reason: anxiety) Qty: 30 0RF multivitamin [Multiple Vitamins] Tablet 1 tab PO QAM omeprazole 20 mg capsule,delayed release(DR/EC) 20 mg PO DAILYBB doxazosin 4 mg tablet 8 mg PO HS bumetanide 1 mg tablet 1 mg PO QAM ondansetron 4 mg tablet,disintegrating 4 mg PO Q6H PRN (Reason: nausea and vomiting) Qty: 14 0RF hydrocortisone 5 mg tablet 20 mg PO DAILY methimazole 5 mg tablet 5 mg PO DAILY hydrocortisone 5 mg tablet 10 mg PO HS sucralfate 1 gram Tablet 1 g PO AC potassium chloride 20 mEq tablet extended release 20 meq PO DAILY atorvastatin 40 mg Tablet 40 mg PO QAM 30 Days Qty: 30 2RF metoprolol succinate 50 mg Tablet Extended Release 24 Hr 50 mg PO BID 30 Days Qty: 60 2RF lisinopril 20 mg Tablet 20 mg PO QAM 30 Days Qty: 30 2RF isosorbide mononitrate 30 mg Tablet Extended Release 24 Hr 30 mg PO QAM 30 Days Qty: 30 2RF Brilinta 90 mg Tablet 90 mg PO BID 30 Days Qty: 60 2RF Discontinued hydrocodone-acetaminophen 5-325 mg Tablet 1 tab PO Q4H PRN (Reason: Pain) Discharge Orders: Discharge Order (Routine); Ordered 07/09/24 Ordered By: Brianda Fry Admission Data Admit Date/Time: 07/08/24 01:56 Attending Provider: Brianda Fry I. Admit Provider: Yaya Oseguera Primary Care Provider: Shalom Lieberman Other Providers: Yaya Oseguera Other Interventions: Discharge Summary Assessment (RN) Last Done: 07/09/24 16:18
[2024-07-09 16:19] VITALS: BP 164/74; PULSE 78
[2024-07-09] MEDS: INFLUENZA VACC TS2024-25(65y+)/PF (IIV3) 0.5mL Syr IM ONE (17:02)
--- NOTE | 2024-07-10 10:56 | Communication Note ---
Date of Service: July 10, 2024 See full cardiology consultation for additional detail 84-year-old male with recent hospitalization on 06/30/2024 with acute coronary syndrome/non-ST segment elevation myocardial infarction undergoing urgent cardiac catheterization. Findings demonstrated multivessel coronary disease with patient receiving interventions to the left circumflex and right coronary artery. Post hospital discharge notable for transient delirium Presents now again to the emergency room noting having developed severe chest pain after midnight last night. Had severe leg pain as well but ultimately brought to the ER due to chest discomfort. Initial EKG with ST elevation in inferior leads with reciprocal ST depression V1 V2. Repeat EKG after resolve of symptoms revealed improved ST segments Symptoms improved with oxygen, nitrates Chest x-ray without pulmonary edema Patient being transported to the [facility] for urgent coronary angiography exclude stent thrombosis Plan urgent echocardiogram as well assess wall motion abnormal
--- NOTE | 2024-07-10 21:02 | Electrocardiogram Report ---
Test Reason : Blood Pressure : */* mmHG Vent. Rate : 63 BPM Atrial Rate : 63 BPM P-R Int : 198 ms QRS Dur : 88 ms QT Int : 388 ms P-R-T Axes : 34 -32 -4 degrees QTcB Int : 397 ms Normal sinus rhythm Left axis deviation Inferior infarct (cited on or before 30-Jun-2024) Abnormal ECG When compared with ECG of 02-Jul-2024 05:44, Nonspecific T wave abnormality no longer evident in Lateral leads Confirmed by Bartolo Albright ([id number]) on 07/10/2024 9:02:39 PM Referred By: Confirmed By: Bartolo Albright
== END 2024-07-09 17:53 | disposition home or self-care (01) ==
LOC: EDINP 17:24 → ED 17:24 → 2N 07-08 02:23

== ENCOUNTER 2024-07-10 09:51 | Inpatient (IN) ==
--- NOTE | 2024-07-10 10:20 | Emergency Department Note ---
Impression & Plan Acute non-ST elevation myocardial infarction (NSTEMI), Chest pain, Abnormal EKG, CKD (chronic kidney disease) ED Provider Note NAME: PUJA GROSSMAN AGE: 84 SEX: M : 1940 ARRIVES VIA: Walk-In INFORMANT: [Patient][, ] ED PROVIDER(S): [Kb Tovar MD] CHIEF COMPLAINT: Chest pain MEDICAL DECISION MAKING: Patient presented due to concern for chest pain. The patient's initial EKG did show slight elevation in 3 and aVF. Patient also with depression in V2. Reviewed the patient's prior EKG did show some slight elevation Q-wave in [address] depression new in the elevations or more prominent compared to prior. I did attempt to contact the on-call interventionalist Dr. Dozier as the patient did have a recent cardiac catheterization with associated stent placement but was in the middle of a procedure. EKG and two priors sent via [facility] for review. During the same time the patient was ordered IV morphine and nitro. Supplemental oxygen was applied. I subsequently did speak with the on-call [facility] analytics consultant Dr. Kendall who kindly evaluated the patient at bedside. Prior to this he did recommend the patient be started on heparin and ordered IV Lopressor. Prior to this and after the patient had received nitro and morphine the patient had no further chest pain. He still did complain of some lower extremity pain. Patient's lower extremities are well-perfused no obvious deformity. Repeat EKG was performed the patient no longer has depressions in V2 and the patient's slight elevations in 3 and aVF do appear improved. Patient was subsequently the patient was taken to the [facility]. Patient's blood work shows a normal white count hemoglobin and platelet count. The patient's kidney function with creatinine 1.58 which is not too far from the patient's baseline. Initial troponin of 630. Critical Care: I have personally spent 35 minutes of critical care time in direct management of this patient. This includes bedside care, interpretation of diagnostic studies, and testing, discussion with consultants, patient, and family members, and other require inpatient management activities. This 35 minutes is in excess of all separately billable procedures. Discussion w/ other healthcare providers: Dr. Kendall cardiology KIMBERLEY Zamudio with Dr. Vines Prior /Outside records reviewed: I reviewed the patient's most recent discharge summary from Dr. Fry from July 09, 2024 Differential diagnosis: Cardiac ischemia, aortic dissection, pulmonary embolism, pneumothorax, pneumonia, pericarditis, myocarditis, GERD, cholecystitis, pancreatitis, musculoskeletal, as well as other pathologies were considered. Diagnostics, as interpreted by me: ECG: Normal sinus rhythm, rate of 94, normal AL and QRS, left axis deviation, depression in V2. Slight elevations in 3 and aVF. Patient slight elevations of were present on prior EKGs but do appear to be more prominent from comparison July 01, 2024 ST depression in V2 appears new from comparison from July 01. Repeat EKG interpreted myself sinus rhythm, rate of 86, normal intervals, left axis deviation, Q-wave and slight doming slight elevation in 3 and aVF although less pronounced resolution of ST depression in V2 noted from comparison completed at the time of arrival. Cardiac monitoring: An order was placed for continuous cardiac monitoring. The monitor shows a rate of 88 with sinus rhythm. [Patient was placed on pulse oximetry] Medical decision rules: Heart score Imaging studies: [I informally interpreted the patient's chest x-ray does not show obvious pneumonia or pneumothorax with formal report to follow.] [] HPI: Patient presents due to concern for chest pain that began last evening. It has been constant currently 10 out of 10. The patient states that it can wax and wane and thinks he is having a recurrence of his heart attack. The patient per review of his record is had 4 recent stents completed on June 30. The patient did have a recent stay for NSTEMI. Patient states that he is compliant with his medications. reports that she is concerned about the possibility of possible withdrawal from his narcotic medication. Patient states that his chest pain is centralized a light pressure nonradiating. No nausea vomiting or diaphoresis. Patient does feel anxious. Patient is requesting morphine. Patient also does complain of some bilateral leg pain. Patient states that his chest pain is centralized that is nonradiating. Patient states that it began at midnight last evening and has been constant. Patient has difficulty giving a day quality. PAST MEDICAL HISTORY: [See Below] PAST SURGICAL HISTORY: [See Below] SOCIAL HISTORY: [See Below] HOME MEDICATIONS: [See Below] ALLERGIES: [See Below] VITALS: [See Below] PHYSICAL EXAMINATION: GENERAL: Uncomfortable and anxious in appearance but nontoxic. EYE EXAM: Normal conjunctiva. PERRL, no anisocoria and EOM's grossly intact w/o pain. OROPHARYNX: Moist mucus membranes, grossly normal dentition. NECK: Trachea midline, no stridor. LUNGS: Clear to auscultation. Normal chest wall mechanics. HEART: NSR, no MRG. ABDOMEN: Abdomen soft, non-tender, no masses, no rebound or guarding. BACK: No CVA TTP. SKIN: No rashes and no bruising. UPPER EXTREMITIES: Upper extremities are grossly normal. LOWER EXTREMITIES: Grossly normal, no edema. No obvious deformity. NEURO EXAM: A&O x3, cranial nerves II-XII grossly intact, stammering speech., moves all 4 extremities. Past Med/Surg History Problem List (Updated 07/10/24 @ 16:15 by Kb Tovar MD) CKD (chronic kidney disease) (Acute) Abnormal EKG (Acute) Chest pain (Acute) Acute non-ST elevation myocardial infarction (NSTEMI) (Acute) Elevated troponin ASCVD (arteriosclerotic cardiovascular disease) Abnormal EKG Prediabetes History of CAD (coronary artery disease) Acute on chronic kidney failure Altered mental status Delirium Anxiety (Acute) Ataxia (Acute) Dyslipidemia, goal LDL below 70 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 S/P right coronary artery (RCA) stent placement Non-sustained ventricular tachycardia (Acute) NSTEMI (non-ST elevated myocardial infarction) (Acute) ACS (acute coronary syndrome) STEMI (ST elevation myocardial infarction) Chest pain (Acute) Trochanteric bursitis of right hip Osteoarthritis of finger Strain of left knee Vitamin D deficiency Blind left eye History of pituitary adenoma MCL sprain of left knee Chronic kidney disease, stage III (moderate) Neck Pain Dyslipidemia Osteopenia Prostatic hypertrophy Chronic low back pain Anxiety Hypertension (Acute) ACTH deficiency (Chronic) Panhypopituitarism (Chronic) Anemia (Chronic) 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 TORRES Deep vein thrombosis RLE - 3 YEARS AGO - CAUSE? - TREATED WITH BLOOD THINNERS. BPH (benign prostatic hyperplasia) IBS (irritable bowel syndrome) GERD (gastroesophageal reflux disease) Hyperthyroidism History of melanoma Hearing deficit BL MCRAE Hypertension Hyperlipidemia Lumbar herniated disc MULTIPLE HLD (hyperlipidemia) CKD (chronic kidney disease) Opioid dependence Surgical History Hx laparoscopic cholecystectomy (06/03/19) Laparoscopic Cholecystectomy Dr. 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 Status post trigger finger release History of esophagogastroduodenoscopy (EGD) 04/20/2019. MAC no issues. History of colonoscopy History of melanoma excision CHEST - W/ SKIN GRAFTING. (LEFT GROIN DONOR SITE) Family History Sister Family hx of colon cancer Father Tobacco use Coronary heart disease Mother Diverticulosis of intestine Sister Ovarian cancer Colon cancer Grandfather Cancer Aunt Cancer Uncle Cancer Grandmother (Maternal) Cancer Other No significant family history Social History Smoking Status: Former smoker Tobacco Type: Cigarettes Second Hand Exposure: No; Do You Dip or Chew Tobacco: No; Hx Alcohol Use: No Hx Substance Use: No Preferred Language: Gu[place]ian Communication Ability: Effective Visual Impairment: No Limitations Human Services Worker Required: No Beliefs That Will Affect Care: None Current Living Situation: Spouse Other Information That Helps Us Care for You: No Feels Safe at Home: Yes Assistive Devices: None Allergies Allergies Allergy/AdvReac Type Severity Reaction Status Date / Time No Known Allergies Allergy Verified 07/07/24 16:47 Home Meds Home Medications Medication Instructions Recorded Confirmed multivitamin (Multiple Vitamins 1 tab PO QAM 05/27/19 07/10/24 tablet) trazodone 150 mg tablet 150 mg PO HS 10/10/19 07/10/24 ascorbic acid (vitamin C) 1,000 mg 500 mg PO QAM 03/18/20 07/10/24 tablet ferrous sulfate 325 mg (65 mg 325 mg PO QAM PRN anemia 03/18/20 07/10/24 iron) tablet (Feosol) dicyclomine 20 mg tablet 20 mg PO TID abdominal pain 11/02/21 07/10/24 dutasteride 0.5 mg-tamsulosin ER 2 cap PO HS 11/02/21 07/10/24 0.4 mg capsule ext.release 24hr mphas (Yancy) gabapentin 300 mg capsule 300 mg PO BID 11/02/21 07/10/24 bumetanide 1 mg tablet 1 mg PO QAM 01/04/22 07/10/24 doxazosin 4 mg tablet 8 mg PO HS 01/04/22 07/10/24 omeprazole 20 mg capsule,delayed 20 mg PO DAILYBB 01/04/22 07/10/24 release gabapentin 100 mg capsule 100 mg PO HS 01/03/23 07/10/24 sertraline 100 mg tablet (Zoloft) 200 mg PO QAM 01/03/23 07/10/24 hydrocortisone 5 mg tablet 10 mg PO HS 06/30/24 07/10/24 hydrocortisone 5 mg tablet 20 mg PO DAILY 06/30/24 07/10/24 methimazole 5 mg tablet 5 mg PO DAILY 06/30/24 07/10/24 potassium chloride 20 mEq 20 meq PO DAILY 06/30/24 07/10/24 tablet,extended release sucralfate 1 gram tablet 1 g PO AC 06/30/24 07/10/24 hydrocodone 5 mg-acetaminophen 325 1 - 2 tab PO Q8H PRN Pain 07/10/24 07/10/24 mg tablet Previous Rx's Medication Instructions Recorded aspirin 81 mg tablet,delayed 81 mg PO QAM #30 tabs 02/23/19 release calcium 600 mg (as 1 tab PO BID #30 tabs 02/23/19 carbonate)-vitamin D3 5 mcg (200 unit) tablet (Calcium 600 + D(3)) magnesium 250 mg tablet 250 mg PO QAM #30 tabs 02/23/19 hydroxyzine HCl 10 mg tablet 10 mg PO Q6H PRN anxiety #30 tabs 10/14/19 ondansetron 4 mg disintegrating 4 mg PO Q6H PRN nausea and 01/04/22 tablet vomiting #14 tabs atorvastatin 40 mg tablet 40 mg PO QAM 30 days #30 tabs 07/02/24 isosorbide mononitrate 30 mg 30 mg PO QAM 30 days #30 tabs 07/02/24 tablet,extended release 24 hr lisinopril 20 mg tablet 20 mg PO QAM 30 days #30 tabs 07/02/24 metoprolol succinate 50 mg 50 mg PO BID 30 days #60 tabs 07/02/24 tablet,extended release 24 hr ticagrelor 90 mg tablet (Brilinta) 90 mg PO BID 30 days #60 tabs 07/02/24 Results & Data (ED) Vital Signs Vital Signs - 24 hr 07/10/24 09:51 07/10/24 09:51 07/10/24 09:54 Temperature 36.3 C L Temperature Source Skin Pulse Rate 99 H Pulse Rate [Apical] Pulse Rhythm [Apical] Pulse Strength [Apical] Respiratory Rate 18 20 Respiratory Effort / Characteristics Non-Labored Spontaneous Respiratory Depth Normal Respiratory Pattern Blood Pressure 151/94 H Blood Pressure [Left Arm] Blood Pressure Mean 113 Blood Pressure Mean [Left Arm] Blood Pressure Position [Left Arm] Pulse Oximetry 99 99 Oxygen Delivery Method Room Air Oxygen Flow Rate Sepsis Recent Fever Within 48 Hours No Sepsis New/Unexplained Change in Mental Status N/A Sepsis Action Taken by Nursing No Action Required EWS Level of Consciousness - Last Result EWS Temperature - Last Result EWS Respiratory Rate - Last Result EWS Oxygen Saturation - Last Result EWS Oxygen in Use - Last Result EWS Score EWS Clinical Risk 07/10/24 10:09 07/10/24 10:09 07/10/24 10:22 Temperature Temperature Source Pulse Rate 98 H Pulse Rate [Apical] Pulse Rhythm [Apical] Pulse Strength [Apical] Respiratory Rate Respiratory Effort / Characteristics Respiratory Depth Respiratory Pattern Blood Pressure Blood Pressure [Left Arm] Blood Pressure Mean Blood Pressure Mean [Left Arm] Blood Pressure Position [Left Arm] Pulse Oximetry 96 Oxygen Delivery Method Nasal Cannula Nasal Cannula Oxygen Flow Rate 2 2 Sepsis Recent Fever Within 48 Hours Sepsis New/Unexplained Change in Mental Status Sepsis Action Taken by Nursing EWS Level of Consciousness - Last Result EWS Temperature - Last Result EWS Respiratory Rate - Last Result EWS Oxygen Saturation - Last Result EWS Oxygen in Use - Last Result EWS Score EWS Clinical Risk 07/10/24 10:59 07/10/24 12:21 07/10/24 12:30 Temperature Temperature Source Pulse Rate Pulse Rate [Apical] 80 77 80 Pulse Rhythm [Apical] Regular Pulse Strength [Apical] Normal Respiratory Rate 12 16 16 Respiratory Effort / Characteristics Non-Labored Spontaneous Normal for Patient Respiratory Depth Normal Normal Normal Respiratory Pattern Regular Blood Pressure Blood Pressure [Left Arm] 140/84 138/81 136/77 Blood Pressure Mean Blood Pressure Mean [Left Arm] 102 100 96 Blood Pressure Position [Left Arm] Lying Pulse Oximetry 99 Oxygen Delivery Method Nasal Cannula Room Air Room Air Oxygen Flow Rate 2 Sepsis Recent Fever Within 48 Hours Sepsis New/Unexplained Change in Mental Status Sepsis Action Taken by Nursing EWS Level of Consciousness - Last Result EWS Temperature - Last Result EWS Respiratory Rate - Last Result EWS Oxygen Saturation - Last Result EWS Oxygen in Use - Last Result EWS Score EWS Clinical Risk 07/10/24 13:09 07/10/24 13:09 Temperature 37 C Temperature Source Oral Pulse Rate Pulse Rate [Apical] 77 Pulse Rhythm [Apical] Pulse Strength [Apical] Respiratory Rate 18 Respiratory Effort / Characteristics Respiratory Depth Respiratory Pattern Blood Pressure Blood Pressure [Left Arm] 177/85 H Blood Pressure Mean Blood Pressure Mean [Left Arm] 115 Blood Pressure Position [Left Arm] Lying Pulse Oximetry 94 Oxygen Delivery Method Room Air Oxygen Flow Rate Sepsis Recent Fever Within 48 Hours Sepsis New/Unexplained Change in Mental Status Sepsis Action Taken by Nursing EWS Level of Consciousness - Last Result Spontaneously Alert EWS Temperature - Last Result 36.3 EWS Respiratory Rate - Last Result 16 EWS Oxygen Saturation - Last Result 99 EWS Oxygen in Use - Last Result No EWS Score 0 EWS Clinical Risk Low Risk Home Medications Current Medication List: was personally reviewed by me Laboratory Data Attestation: I reviewed the patient's lab results. 07/10/24 10:11 07/10/24 10:11 Lab Results 07/10/24 Range/Units 10:11 WBC 10.72 (4.8-10.8) K/ul RBC 4.52 L (4.70-6.10) M/uL Hgb 14.6 (14.0-18.0) g/dl Hct 40.5 L (42.0-52.0) % MCV 89.6 (80.0-100.0) fL MCH 32.3 (25.0-34.0) pg MCHC 36.0 (32.0-36.0) g/dL RDW Std Deviation 41.0 (36.4-46.3) fL RDW Coeff of Mehnaz 12.5 (11.5-14.5) % Plt Count 204 (130-400) K/uL MPV 10.2 (9.4-12.4) fL Immature Gran % (Auto) 0.4 % Neut % (Auto) 60.1 % Lymph % (Auto) 26.0 % [place] % (Auto) 7.5 % Eos % (Auto) 5.4 % Baso % (Auto) 0.6 % Neut # (Auto) 6.45 (1.40-6.50) K/uL Lymph # (Auto) 2.79 (1.20-3.40) K/uL [place] # (Auto) 0.80 H (0.11-0.59) K/uL Eos # (Auto) 0.58 H (0.00-0.50) K/uL Baso # (Auto) 0.06 (0.00-0.20) K/uL Immature Gran # (Auto) 0.04 (0.01-0.20) K/uL PT 10.9 (9.0-12.0) Seconds INR 1.0 (0.9-1.1) APTT 28 (21-31) Seconds PTT Ratio 1.0 Sodium 141 (136-145) mmol/L Potassium 3.3 L D (3.5-5.1) mmol/L Chloride 106 (98-107) mmol/L Carbon Dioxide 22 (21-32) mmol/L Anion Gap 13 H (3-11) BUN 32 H (6-23) mg/dl Creatinine 1.58 H (0.6-1.4) mg/dl Est Cr Clr Drug Dosing 34.3 ml/min eGFR 43.13 BUN/Creatinine Ratio 20.3 H (10-20) Glucose 101 H (70-99(Fasting)) mg/dl Calcium 10.1 (8.6-10.3) mg/dl Total Bilirubin 0.7 (0.2-1.0) mg/dl AST 110 H (13-39) U/L ALT 39 (7-52) U/L Alkaline Phosphatase 85 (34-104) U/L Troponin I High Sens 632.7 H* (0-20) pg/ml Total Protein 7.4 (6.0-8.3) gm/dl Albumin 4.4 (3.4-5.0) gm/dl Globulin 3.0 (2.5-4.0) gm/dl Albumin/Globulin Ratio 1.5 (0.9-2) Administered Medications Acetaminophen (Acetaminophen 500 Mg Tab) 1,000 mg PO Q8H PRN PRN Reason: Headache or Pain Stop: 08/09/24 14:54 Last Admin: 07/10/24 15:14 Dose: 1,000 mg Documented By: ROSCOE Potassium Chloride (K [place] / Wtr) 10 meq in 100 mls @ 100 mls/hr IV Q1H TOD Stop: 07/10/24 15:59 Last Admin: 07/10/24 15:25 Dose: 100 mls/hr Documented By: Infusion: 07/10/24 15:25 Dose: Infused Documented By: Admin: 07/10/24 14:12 Dose: 100 mls/hr Documented By: ROSCOE Discontinued Medications Aspirin (Aspirin Chew 324 Mg) 324 mg PO NOW STA Stop: 07/10/24 10:32 Last Admin: 07/10/24 11:04 Dose: 324 mg Documented By: RUBIN Fentanyl Citrate (Fentanyl Citrate Pf 100 Mcg/2 Ml Vial) Confirm Administered Dose 100 mcg .ROUTE .STK-MED ONE Stop: 07/10/24 10:54 Last Increment: 07/10/24 12:13 Dose: 25 mcg Documented By: MARIANA Heparin Sodium (Porcine) (Heparin Sod (Porcine) 1000 Unit/Ml) 1 units IV NOW ONE Stop: 07/10/24 10:47 Last Admin: 07/10/24 13:18 Dose: Not Given Documented By: ROSCOE Heparin Sodium (Porcine) (Heparin (Porcine) 1000 Unit/Ml 10 Ml ([facility] Use Only)) Confirm Administered Dose 10,000 units .ROUTE .STK-MED ONE Stop: 07/10/24 10:54 Last Admin: 07/10/24 12:13 Dose: 4,000 units Documented By: RUBIN Heparin Sodium/Dextrose (Heparin Iv Adult Wt-Based Low-Dose W/ Initial Bolus Protocol) 1 each IV NOW STA; Protocol Stop: 07/10/24 10:32 Last Admin: 07/10/24 13:17 Dose: Not Given Documented By: ROSCOE Heparin Sodium/Sodium Chloride (Heparin In Nss Infusion 1000 Unit/500 Ml (2 U/Ml) Bag) Confirm Administered Dose 3,000 units IV .STK-MED ONE Stop: 07/10/24 10:54 Last Admin: 07/10/24 12:14 Dose: 3,000 units Documented By: MALOU Iodixanol (Iodixanol (Visipaque) 320 Mg/Ml 100ml) Confirm Administered Dose 1 ml IV .STK-MED ONE Stop: 07/10/24 10:55 Last Admin: 07/10/24 12:14 Dose: 25 ml Documented By: MALOU Metoprolol Tartrate (Metoprolol Tartrate 1 Mg/Ml Vial) 5 mg IV NOW STA Stop: 07/10/24 10:33 Last Admin: 07/10/24 13:18 Dose: Not Given Documented By: ROSCOE Midazolam HCl (Midazolam Hcl 1 Mg/Ml 2ml Vial) Confirm Administered Dose 2 mg .ROUTE .STK-MED ONE Stop: 07/10/24 10:54 Last Increment: 07/10/24 12:14 Dose: 1 mg Documented By: MARIAAN Morphine Sulfate (Morphine Sulfate 4 Mg/Ml 1 Ml Carp\Vial) 4 mg IV NOW STA Stop: 07/10/24 10:21 Last Admin: 07/10/24 10:25 Dose: 4 mg Documented By: LONNIE Nitroglycerin (Nitroglycerin Sl 0.4 Mg/Tab Tab) 0.4 mg SL NOW STA Stop: 07/10/24 10:21 Last Admin: 07/10/24 10:26 Dose: 0.4 mg Documented By: LONNIE Nitroglycerin/Dextrose (Nitroglycerin/D5w 100mcg/Ml 20ml Syr) Confirm Administered Dose 2,000 mcg .ROUTE .STK-MED ONE Stop: 07/10/24 10:55 Last Admin: 07/10/24 12:14 Dose: 2,000 mcg Documented By: MALOU Imaging Data Radiologist's Impression: Chest X-Ray 07/10/24 10:09 XR chest 1V portable CLINICAL HISTORY: Chest pain, nonspecific TECHNIQUE: Single frontal radiograph of the chest was obtained. Comparison: Comparison is made to chest radiograph 07/07/2024 FINDINGS: No lines and tubes are seen. Calcified aortic knob is seen. The lungs are clear. No evidence of pleural effusion or pneumothorax. IMPRESSION: No acute chest disease. ACT 112: Negative or not required by law. Electronically signed by: Donald Fabian M.D. 07/10/2024 10:26 AM Discharge Plan Visit Data Chief Complaint: Chest Pain Stated Complaint: CHEST PAIN, LEGS HURT ED Provider: Kb Tovar Discharge Problem: Acute non-ST elevation myocardial infarction (NSTEMI), Chest pain, Abnormal EKG, CKD (chronic kidney disease) Patient Disposition: Admitted As Inpatient Discharge Instructions Interventions: ED Discharge Assessment Last Done: 07/10/24 10:50 Discharge Problem: Chest pain Qualifiers: Chest pain type: unspecified Qualified Code(s): R07.9 - Chest pain, unspecified CKD (chronic kidney disease) Qualifiers: Chronic kidney disease stage: unspecified stage Qualified Code(s): N18.9 - Chronic kidney disease, unspecified
[2024-07-10] MEDS: MoRPHine SULFATE 4 MG/ML 1 ML CARP\\VIAL IV STA (10:25)
[2024-07-10] MEDS: NITROGLYCERIN SL 0.4 MG/TAB TAB SL STA (10:26)
[2024-07-10 10:27] LABS: Basophils # (auto) 0.06 K/uL (0.00-0.20); Basophils % (auto) 0.6 %; Eosinophils # (auto) 0.58 K/uL (0.00-0.50); Eosinophils % (auto) 5.4 %; Hematocrit (blood only) 40.5 % (42.0-52.0); Hemoglobin 14.6 g/dl (14.0-18.0); Immature Granulocytes # (auto) 0.04 K/uL (0.01-0.20); Immature Granulocytes % (auto) 0.4 %; Lymphocytes # (auto) 2.79 K/uL (1.20-3.40); Mean Corpuscular Hemoglobin 32.3 pg (25.0-34.0); Mean Corpuscular Volume 89.6 fL (80.0-100.0); Mean Platelet Volume 10.2 fL (9.4-12.4); Monocytes % (auto) 7.5 %; Neutrophils # (auto) 6.45 K/uL (1.40-6.50); Neutrophils % (auto) 60.1 %; Platelet Count 204 K/uL (130-400); RDW Coefficient of Variation 12.5 % (11.5-14.5); Red Blood Count 4.52 M/uL (4.70-6.10); White Blood Count 10.72 K/ul (4.8-10.8)
--- NOTE | 2024-07-10 10:28 | XRay Report ---
XR chest 1V portable CLINICAL HISTORY: Chest pain, nonspecific TECHNIQUE: Single frontal radiograph of the chest was obtained. Comparison: Comparison is made to chest radiograph 07/07/2024 FINDINGS: No lines and tubes are seen. Calcified aortic knob is seen. The lungs are clear. No evidence of pleur al effusion or pneumothorax. IMPRESSION: No acute chest disease. ACT 112: Negative or not required by law. Electronically signed by: Donald Fabian M.D. 07/10/2024 10:26 AM
[2024-07-10 10:45] LABS: Albumin Globulin Ratio 1.5 (0.9-2); Albumin Level 4.4 gm/dl (3.4-5.0); BUN Creatinine Ratio 20.3 (10-20); Bilirubin,Total 0.7 mg/dl (0.2-1.0); Calcium 10.1 mg/dl (8.6-10.3); Creatinine Clr Calc Pharmacy 34.3 ml/min; Potassium 3.3 mmol/L (3.5-5.1); Total Protein 7.4 gm/dl (6.0-8.3)
[2024-07-10 10:50] LABS: Partial Thromboplastin Time 28 Seconds (21-31); Prothrombin Time 10.9 Seconds (9.0-12.0)
--- NOTE | 2024-07-10 10:53 | Cardiology Consultation ---
Date of Consultation July 10, 2024 Assessment & Plan (1) Chest pain: (2) Abnormal EKG: (3) ASCVD (arteriosclerotic cardiovascular disease): (4) Hypertension: (5) Dyslipidemia, goal LDL below 70: (6) Elevated troponin: Plan 84-year-old male with recent late presentation STEMI, undergoing complex coronary intervention ten days ago. Hospital course at that time notable for nonsustained ventricular tachycardia and accelerated idioventricular rhythm on telemetry. Patient returned to the ER in the AM of 07/10 with chest and abdominal pain and chronic bilateral leg pain similar to chronic restless leg complaints. Initial EKG with inferior ST segment elevation with reciprocal ST depression in V2-V3. Presenting symptoms improved following treatment with supplemental oxygen, nitrates, morphine, and IV metoprolol. Repeat EKG following improvement in pain with resolution of acute findings. Chest imaging and examination without volume overload. ER telemetry benign thus far. Patient with known chronic kidney disease, creatinine 1.58 mg/dL. Concern for stent thrombos is noted. Recommend referral for urgent coronary angiography. Further recommendations to come. Supervising Physician Co-Signing Physician Notes Patient was seen and personally examined both prior to cardiac catheterization and post catheterization with late rounds Patient initially presented now 10 days post coronary invention with chest pain and agitation beginning approximately midnight last night. Patient complaining of severe pain notes patient walking and ambulatory and mildly agitated about home EKG on presentation demonstrated initial ST elevation inferior posterior leads. Patient referred and underwent coronary angiography which demonstrated patent stents without evidence of stent thrombosis. raises concerns regarding agitation and symptoms secondary to possible narcotic withdrawal. Current event appears to be at least partially in induced by agitation and pain Currently without complaint but did receive IV morphine and fentanyl for procedure Plan: Observe overnight. Patient did have access site bleeding post procedure Consider increasing isosorbide mononitrate in a.m. Echocardiogram to assess inferior posterior infarct area assess for aneurysm given transient ST elevation on presentation History of Present Illness Reason for Consultation: Chest pain Requesting Physician: Dr. Kb Tovar Attending Physician: Isatu Beltran Service History of Present Illness Mr. Kai Peña is an 84-year-old male who was hospitalized at [facility] earlier circa 10 days ago, late presentation inferior lateral STEMI with RV involvement. Troponin peaked at 64,049.5 pg/mL. Coronary angiography revealed severe multivessel coronary artery disease with the culprit being the proximal RCA, status post PCI of the RCA with 3 overlapping drug- eluting stents and PCI of the mid circumflex with 1 drug-eluting stent. Borderline residual stenosis of LAD noted. Patient treated with dual antiplatelet therapy with aspirin and Brilinta. Patient returned to the hospital July 07 to July 08 with altered mental status and leg pain. Altered mental status attributed to opioids for chronic leg pain/restless leg syndrome. Acute on chronic renal dysfunction observed. Patient return to [facility] ER earlier this morning with recurrent chest and abdominal pain similar to that associated with the STEMI. EKG revealed acute changes inferiorly with ST segment elevation/doming in lead III, reciprocal ST depression in V2 and V3. Patient received aspirin, nitro, morphine, and IV Lopressor with resolution of pain. Repeat EKG with improvement. High-sensitivity troponin 632.7. at bedside. Compliance with medications noted. No bleeding issues such as epistaxis, hemoptysis, melena, hematochezia, or hematuria. No issues with sedation or anesthesia. Notes chronic kidney disease, 1 functional kidney. Chronic leg pain attributed to RLS. No palpitations. No shortness of breath. No orthopnea, PND, or peirpheral edema. No dizziness or syncope. No recent colds, fevers, or chills Problem list: ASCVD June 2024 late presentation inferolateral STEMI. Catheterization with multivessel coronary artery disease, culprit proximal RCA stenosis status post PCI of the RCA with 3 overlapping drug-eluting stents Status post PCI of the mid left circumflex with 1 drug-eluting stent. Angiography with borderline residual LAD stenosis. Hypertension Dyslipidemia CKD Malignant melanoma Restless leg syndrome BPH GERD Tortuous esophagus Irritable bowel syndrome Osteoarthritis Lumbar spine injection Pituitary surgery Family History: Positive for CAD in mother and father. Mother with [place] in her 70s. Father with CHF. Daughter with breast cancer at the age of 33. Social history: Remote tobacco user, quit in 1968. No smokeless tobacco use. No significant alcohol use. Lives in [place] with . Allergies Allergy/AdvReac Type Severity Reaction Status Date / Time No Known Allergies Allergy Verified 07/07/24 16:47 Home Medications Medication Instructions Recorded Confirmed Type aspirin 81 mg tablet,delayed 81 mg PO QAM #30 tabs 02/23/19 07/10/24 Rx release calcium 600 mg (as 1 tab PO BID #30 tabs 02/23/19 07/10/24 Rx carbonate)-vitamin D3 5 mcg (200 unit) tablet (Calcium 600 + D(3)) magnesium 250 mg tablet 250 mg PO QAM #30 tabs 02/23/19 07/10/24 Rx multivitamin (Multiple Vitamins 1 tab PO QAM 05/27/19 07/10/24 History tablet) trazodone 150 mg tablet 150 mg PO HS 10/10/19 07/10/24 History hydroxyzine HCl 10 mg tablet 10 mg PO Q6H PRN anxiety #30 tabs 10/14/19 07/10/24 Rx ascorbic acid (vitamin C) 1,000 mg 500 mg PO QAM 03/18/20 07/10/24 History tablet ferrous sulfate 325 mg (65 mg 325 mg PO QAM PRN anemia 03/18/20 07/10/24 History iron) tablet (Feosol) dicyclomine 20 mg tablet 20 mg PO TID abdominal pain 11/02/21 07/10/24 History dutasteride 0.5 mg-tamsulosin ER 2 cap PO HS 11/02/21 07/10/24 History 0.4 mg capsule ext.release 24hr mphas (Yancy) gabapentin 300 mg capsule 300 mg PO BID 11/02/21 07/10/24 History bumetanide 1 mg tablet 1 mg PO QAM 01/04/22 07/10/24 History doxazosin 4 mg tablet 8 mg PO HS 01/04/22 07/10/24 History omeprazole 20 mg capsule,delayed 20 mg PO DAILYBB 01/04/22 07/10/24 History release ondansetron 4 mg disintegrating 4 mg PO Q6H PRN nausea and 01/04/22 07/10/24 Rx tablet vomiting #14 tabs gabapentin 100 mg capsule 100 mg PO HS 01/03/23 07/10/24 History sertraline 100 mg tablet (Zoloft) 200 mg PO QAM 01/03/23 07/10/24 History hydrocortisone 5 mg tablet 10 mg PO HS 06/30/24 07/10/24 History hydrocortisone 5 mg tablet 20 mg PO DAILY 06/30/24 07/10/24 History methimazole 5 mg tablet 5 mg PO DAILY 06/30/24 07/10/24 History potassium chloride 20 mEq 20 meq PO DAILY 06/30/24 07/10/24 History tablet,extended release sucralfate 1 gram tablet 1 g PO AC 06/30/24 07/10/24 History atorvastatin 40 mg tablet 40 mg PO QAM 30 days #30 tabs 07/02/24 07/10/24 Rx isosorbide mononitrate 30 mg 30 mg PO QAM 30 days #30 tabs 07/02/24 07/10/24 Rx tablet,extended release 24 hr lisinopril 20 mg tablet 20 mg PO QAM 30 days #30 tabs 07/02/24 07/10/24 Rx metoprolol succinate 50 mg 50 mg PO BID 30 days #60 tabs 07/02/24 07/10/24 Rx tablet,extended release 24 hr ticagrelor 90 mg tablet (Brilinta) 90 mg PO BID 30 days #60 tabs 07/02/24 07/10/24 Rx hydrocodone 5 mg-acetaminophen 325 1 - 2 tab PO Q8H PRN Pain 07/10/24 07/10/24 History mg tablet Patient History Medical History Aspiration pneumonia Headache Muscle cramps at night HTN (hypertension) Acute renal failure superimposed on stage 3 chronic kidney disease Spasm of bowel Multiple renal cysts REPORTS ONLY HAS 1 FUNCTIONING KIDNEY - FOLLOWS W/ DR. TORRES Deep vein thrombosis RLE - 3 YEARS AGO - CAUSE? - TREATED WITH BLOOD THINNERS. BPH (benign prostatic hyperplasia) IBS (irritable bowel syndrome) GERD (gastroesophageal reflux disease) Hyperthyroidism History of melanoma Hearing deficit BL MCRAE Hypertension Hyperlipidemia Lumbar herniated disc MULTIPLE HLD (hyperlipidemia) CKD (chronic kidney disease) Opioid dependence Surgical History Hx laparoscopic cholecystectomy (06/03/19) Laparoscopic Cholecystectomy Dr. 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 Status post trigger finger release History of esophagogastroduodenoscopy (EGD) 04/20/2019. MAC no issues. History of colonoscopy History of melanoma excision CHEST - W/ SKIN GRAFTING. (LEFT GROIN DONOR SITE) Family History Sister Family hx of colon cancer Father Tobacco use Coronary heart disease Mother Diverticulosis of intestine Sister Ovarian cancer Colon cancer Grandfather Cancer Aunt Cancer Uncle Cancer Grandmother (Maternal) Cancer Other No significant family history Social History Smoking Status: Former smoker Tobacco Type: Cigarettes Second Hand Exposure: No; Do You Dip or Chew Tobacco: No; Hx Alcohol Use: No Hx Substance Use: No Preferred Language: Croatian Communication Ability: Effective Visual Impairment: No Limitations Manager Corporate Responsibility Required: No Beliefs That Will Affect Care: None Current Living Situation: Spouse Other Information That Helps Us Care for You: No Feels Safe at Home: Yes Assistive Devices: None Review of Systems Review of Systems: Complete Review of Systems is as stated above, negative, or noncontributory. Physical Exam Physical Exam: General: A&Ox3. HENT: Normocephalic. Atraumatic. Eyes: PER. Conjunctiva pink, sclera clear. Neck: No JVD. No HJR. No carotid bruits Heart: RRR, 84 bpm. No murmur. No rub. Lungs: Clear to auscultation. Abdomen: Healing ecchymosis. No abdominal bruit. +BS. Soft. Nontender. No masses or organomegaly. Extremities: No clubbing, cyanosis, or edema. Limited neurological examination is without focal deficits. Pulses: radial=2/4, posterior tibial=2/4. Results & Data Vital Signs (Past 12 Hours) Vital Signs Temp Pulse Resp BP Pulse Ox O2 Del Method O2 Flow Rate 07/10/24 10:22 98 H 07/10/24 10:09 96 Nasal Cannula 2 07/10/24 10:09 Nasal Cannula 2 07/10/24 09:54 36.3 C L 99 H 20 151/94 H 99 07/10/24 09:51 18 99 07/10/24 09:51 Room Air Laboratory Results Cardiac Enzymes 07/10/24 Range/Units 10:11 AST 110 H (13-39) U/L Troponin I High Sens 632.7 H* (0-20) pg/ml Coagulation 07/10/24 Range/Units 10:11 PT 10.9 (9.0-12.0) Seconds APTT 28 (21-31) Seconds CBC 07/10/24 Range/Units 10:11 WBC 10.72 (4.8-10.8) K/ul RBC 4.52 L (4.70-6.10) M/uL Hgb 14.6 (14.0-18.0) g/dl Hct 40.5 L (42.0-52.0) % Plt Count 204 (130-400) K/uL Neut # (Auto) 6.45 (1.40-6.50) K/uL Lymph # (Auto) 2.79 (1.20-3.40) K/uL Divide # (Auto) 0.80 H (0.11-0.59) K/uL Eos # (Auto) 0.58 H (0.00-0.50) K/uL Baso # (Auto) 0.06 (0.00-0.20) K/uL Comprehensive Metabolic Panel 07/10/24 Range/Units 10:11 Sodium 141 (136-145) mmol/L Potassium 3.3 L D (3.5-5.1) mmol/L Chloride 106 (98-107) mmol/L Carbon Dioxide 22 (21-32) mmol/L BUN 32 H (6-23) mg/dl Creatinine 1.58 H (0.6-1.4) mg/dl Glucose 101 H (70-99(Fasting)) mg/dl Calcium 10.1 (8.6-10.3) mg/dl AST 110 H (13-39) U/L ALT 39 (7-52) U/L Alkaline Phosphatase 85 (34-104) U/L Total Protein 7.4 (6.0-8.3) gm/dl Albumin 4.4 (3.4-5.0) gm/dl Intake and Output 07/09/24 07/10/24 07/10/24 22:59 06:59 14:59 Other: Weight 80 kg Patient Weight 07/11/24 06:59 Weight 80 kg
[2024-07-10 10:54] LABS: Troponin I High Sensitivity 632.7 pg/ml (0-20)
[2024-07-10] MEDS: ASPIRIN CHEW 324 MG PO STA (11:04)
[2024-07-10] MEDS: HEPARIN (PORCINE) 1000 UNIT/ML 10 ML (CATH LAB USE ONLY) ONE (12:13)
[2024-07-10] MEDS: fentaNYL citrate PF 100 MCG/2 ML VIAL ONE (12:13)
[2024-07-10] MEDS: MIDAZOLAM HCL 1 MG/ML 2ML VIAL ONE (12:14)
[2024-07-10] MEDS: NITROGLYCERIN/D5W 100MCG/ML 20ML SYR ONE (12:14)
[2024-07-10] MEDS: IODIXANOL (VISIPAQUE) 320 MG/ML 100ML IV ONE (12:14)
--- NOTE | 2024-07-10 12:30 | Pre Anesthesia Assessment ---
Date of Service July 10, 2024 Pre Sedation Assessment Vital Signs Temp Pulse Pulse Resp BP BP Pulse Ox 07/10/24 10:59 80 12 140/84 99 07/10/24 10:22 98 H 07/10/24 10:09 96 07/10/24 10:09 07/10/24 09:54 97.3 F L 99 H 20 151/94 H 99 07/10/24 09:51 18 99 07/10/24 09:51 O2 Del Method O2 Flow Rate 07/10/24 10:59 Nasal Cannula 2 07/10/24 10:22 07/10/24 10:09 Nasal Cannula 2 07/10/24 10:09 Nasal Cannula 2 07/10/24 09:54 07/10/24 09:51 07/10/24 09:51 Room Air Cardiovascular + regular rate Respiratory + respiratory effort normal Pre-Sedation Airway Assessment Smoking Status: Former smoker Hx Sleep Apnea: No Short, Thick Neck: No Thyromental Distance: > or= 3.5 Finger Breadths Oral Cavity: + WNL Mallampati Class: III ASA: ASA3 NPO Status Date of Last Intake of Fluids: 07/10/24 Time of Last Intake of Fluids: 10:45 Last Oral Intake of Fluids Comment: sips with meds Date of Last Intake of Solid Food: 07/10/24 Time of Last Intake of Solid Foods: 08:00 Procedure Planning Contraindications for Sedation: none Current Medications Reviewed: Yes Notes The planned sedation has been discussed with the patient. Informed Consent was obtained. I have identified the patient, determined the appropriateness of sedation and have assessed the patient immediately prior to the procedure. All medicine(s) and interventions are by my order.
--- NOTE | 2024-07-10 12:30 | Post Anesthesia Assessment ---
Date of Service July 10, 2024 Post Sedation Assessment Vital Signs Temp Pulse Pulse Resp BP BP Pulse Ox 07/10/24 10:59 80 12 140/84 99 07/10/24 10:22 98 H 07/10/24 10:09 96 07/10/24 10:09 07/10/24 09:54 97.3 F L 99 H 20 151/94 H 99 07/10/24 09:51 18 99 07/10/24 09:51 O2 Del Method O2 Flow Rate 07/10/24 10:59 Nasal Cannula 2 07/10/24 10:22 07/10/24 10:09 Nasal Cannula 2 07/10/24 10:09 Nasal Cannula 2 07/10/24 09:54 07/10/24 09:51 07/10/24 09:51 Room Air Recovery Score Activity: Moves 4 extremities Respiration: Deep Breath/Cough Circulation: +/-20% PreAnes Value Consciousness: Fully Awake Oxygen Saturation: O2 needed for >90% Discharge Sedation Level of Care: Fast Track Phase II Post Sedation Plan On clinical assessment, the patient appears to have tolerated the sedation without complications. Patient is recovering as anticipated. Patient will continue to be monitored by nursing and may be discharged when sedation discharge criteria are met per below protocol. Upon Completions of procedure up to 15 minutes continue every 5 minute vital signs and the P.A.R. score; then discharge to a Phase I or Fast Track to Phase II per the following guidelines: * Discharge Patient to appropriate Phase II area if PAR is 8 or greater or return to pre- procedure baseline. The post - procedure orders will be as directed. * If PAR score is less than 8 or not return to pre-procedure baseline then patient will follow Phase I monitoring till PAR is reached for Phase II. The Phase I may be done in procedure room or may call to secure a Phase I area. * If naloxone or flumazenil are used for reversal, hold in Phase I for continued monitoring from when last reversal dose was given for a minimum of 60 minutes or longer pending the nurse and/or physician discretion of patient condition before discharge to Phase II. Please call the Sedation Physician to re-evaluate and complete post-note for discharge to Phase II area. Do NOT discharge from procedure sedation or Phase 1 until post- sedation evaluation note is complete by procedure /sedation MD Sedation Discharge Instructions to be given to the patient at discharge to home.
--- NOTE | 2024-07-10 12:46 | Cardiac Catheterization ---
[facility] Data: Manager Wholesale Cardiac Status Clinical evaluation leading to the procedure CAD Presenation: Positive Stress Test Diagnostic Physicians Name: Xander Dozier MD Closure Device Recommendations: Medical Therapy and/or Counseling Cardiac Cath Procedure Full Procedure Date July 10, 2024 Pre-Procedure Diagnosis Pre-Procedure Diagnosis: Non STEMI AUC Score AUC Score: 07 Post-Procedure Diagnosis Post-Procedure Diagnosis: Severe CAD and Normal Intracardiac Pressures Procedure(s) Performed Procedure(s) Performed: Coronary Angiography and Left Heart Cath Giving Officer Xander Dozier MD Transit Police Officer(s) Delfin Estimated Blood Loss Estimated Blood Loss: 5 Medication(s) Medication(s): Fentanyl, Heparin, Lidocaine 1%, Nicardipine, Nitroglycerin and Versed Summary of Findings Indication: Recent STEMI post 3 ANJANA to RCA, additional ANJANA to nonculprit mid LCx. Here with recurrent chest pain and dynamic ST changes Access: 6 Fr slender right radial artery Catheters: [place], pigtail Findings: LM -normal caliber, calcified no significant disease. LAD -medium caliber, calcified, mild diffuse proximal disease, 50-60% calcified mid segment just before takeoff of D3. Distal vessel extends around apex with focal 30% stenosis with myocardial bridging. Medium branching D1 without significant disease. Circumflex -medium caliber vessel, 30-40% ostial stenosis, mid circumflex stent widely patent, 40% distal stenosis after stent. Small jailed OM 2 with 70% ost ial stenosis. Left PLB without significant disease. RCA -dominant, medium caliber, proximal to distal stents widely patent. 40-50% distal stenosis just before bifurcation with PDA. Luminal irregularities in posterior AV branch extending into right PLB. RPDA with 60-70% ostial stenosis. Medium jailed right RV branch with 90% ostial stenosis and LESTER II-III distal flow. LVEDP -5 Arterial Closure: TR band Summary: 1. Widely patent RCA and circumflex stents 2. Stable multivessel CAD -50-60% mid LAD 30-40% ostial and 40% distal circumflex 40-50% distal RCA prior to PDA. 60-70% ostial RPDA. Jailed medium RV branch with 90% ostial stenosis and LESTER II flow (question possible culprit for recurrent symptoms) 2. Normal intracardiac filling pressure Recommendations: No evidence of stent thrombosis or new high risk disease to explain recurrent symptoms. Suspect symptoms secondary to demand with severe branch vessel disease Recommend medical management with additional antianginal therapy per Dr. Kendall Hemodynamics Rest Ao:: 84//58 Final Ao: 119/62/84 LV: 117/5 Recommendations Recommendations: Medical Therapy and/or Counseling Specimens Specimens: None Radiation Exposure (mGy) 554 Contrast (mls) 25 Anesthesia Moderate 9001-9935 Procedural Complication(s) None Disposition Manager Wholesale Holding/Recovery I attest to the content of the Intraoperative Record and any orders documented therein. Any exceptions are noted below. [facility] Card Cath Procedure Codes Cardiac Catheterization Procedure 1: Cardiovascular Cath Procedures: 63064 Coronaries and LHC (+/-LV) Moderate Sedation Procedure 1: Sedation/Anesthesia: 39753 Mod Sedation by the same physician;Init15 Min Child Age 5 & Up PG Care Time/CCT Total # of Minutes Spent Total Time Spent with Patient: Total time spent is greater than 50% in coordination of care (as documented) at patient's floor/unit and/or counseling patient:
[2024-07-10] MEDS: Heparin IV Adult Wt-Based Low-Dose w/ INITIAL Bolus Protocol IV STA (13:17)
[2024-07-10] MEDS: HEPARIN SOD (PORCINE) 1000 UNIT/ML IV ONE (13:18)
[2024-07-10] MEDS: METOPROLOL TARTRATE 1 MG/ML VIAL IV STA (13:18)
--- NOTE | 2024-07-10 13:20 | History & Physical Report ---
Date of Service July 10, 2024 Assessment & Plan (1) Elevated troponin: (2) ASCVD (arteriosclerotic cardiovascular disease): (3) ACS (acute coronary syndrome): (4) NSTEMI (non-ST elevated myocardial infarction): (5) Hypertension: (6) Dyslipidemia: Plan ASCVD: Acute s/p cardiac cath; ongoing chest pain Recent stent x3 10 days ago to mid circumflex. elevated Troponin 632.7; originally during STEMI 10 days ago, Troponin was 55k Suspect elevated Troponin is due to ischemic demand rather than ACS or a new cardiac event Today EKG changes without any significant ST elevation or depression Cath report from today: 1. Widely patent RCA and circumflex stents 2. Stable multivessel CAD -50-60% mid LAD 30-40% ostial and 40% distal circumflex 40-50% distal RCA prior to PDA. 60-70% ostial RPDA. no signs of stent thrombosis during cath Continue Brilinta Cardiology consult placed Hypokalemia: Acute Serum K+ 3.3 Administer K+ rider x2 Trend BMP in AM HTN: Chronic Takes Imdur and Lisinopril; continue HLD: Chronic Takes atorvastatin; continue Disposition: PCP: DR. Lieberman CODE STATUS: Full code VTE prophylaxis: Teds and SCDs for now I spent a total of 85 minutes coordinating, documenting, and providing care for this patient excluding time spent in the performance of separately billed services. All of the aforementioned completed while collaborating with the assigned attending physician for a full treatment plan. Please see their addendum for further details. Admission and Anticipated Discharge Date Admission Date: July 10, 2024 History of Present Illness Chief Complaint: chest pain Primary Care Provider: Shalom Lieberman MD Mr. Kai Wilkerson is an 84-year-old male that presented today with abdominal pain and lower extremity bilateral leg pain. He had a recent hospitalization here at [facility] 10 days ago and was identified to have a inferior lateral wall STEMI. Coronary angiography revealed severe multivessel CAD. 3 ANJANA were placed and he was started on dual antiplatelet therapy with aspirin and Brilinta. Past medical history includes ASCVD, CAD s/p recent stent placement, hypertension, hyperlipidemia, history of pituitary adenoma surgery, panhypopituitarism (growth hormone deficiency, ACTH deficiency, central hypogonadism, toxic multinodular goiter as per records),hyperprolactinemia as per records, chronic steroid Rx, CRI (baseline creatinine 1.4), chronic anemia (baseline hemoglobin 12-13), melanoma as per records BPH, anxiety/mood disorder, history of DVT as per records, chronic back pain secondary to LSS, past tobacco abuse. Patient returned to the hospital 1022 with AMS and leg pain. He was also complaining of recurrent chest pain. EKG revealed acute changes with ST elevation in lead III and V2 and V3. He was given aspirin, nitro and morphine with resolution of pain. Repeat EKG showed improvement. High sensitive troponin at that time 600+. Patient here today with recurrent chest pain. Patient being transported to the [facility] for urgent coronary angiogram very to exclude stent thrombosis. 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 Dr. Dozier recommend medical management with additional antianginal therapy. I was able to see him post catheterization. He is lying in his hospital bed in no apparent distress. He denies chest pain, SOB, palpitations, N/V/D, abdominal pain or tenderness, recent fall or trauma. Patient will be admitted for further evaluation and management. Please see A/P for further details. Allergies Allergy/AdvReac Type Severity Reaction Status Date / Time No Known Allergies Allergy Verified 07/07/24 16:47 Home Medications Medication Instructions Recorded Confirmed Type aspirin 81 mg tablet,delayed 81 mg PO QAM #30 tabs 02/23/19 07/10/24 Rx release calcium 600 mg (as 1 tab PO BID #30 tabs 02/23/19 07/10/24 Rx carbonate)-vitamin D3 5 mcg (200 unit) tablet (Calcium 600 + D(3)) magnesium 250 mg tablet 250 mg PO QAM #30 tabs 02/23/19 07/10/24 Rx multivitamin (Multiple Vitamins 1 tab PO QAM 05/27/19 07/10/24 History tablet) trazodone 150 mg tablet 150 mg PO HS 10/10/19 07/10/24 History hydroxyzine HCl 10 mg tablet 10 mg PO Q6H PRN anxiety #30 tabs 10/14/19 07/10/24 Rx ascorbic acid (vitamin C) 1,000 mg 500 mg PO QAM 03/18/20 07/10/24 History tablet ferrous sulfate 325 mg (65 mg 325 mg PO QAM PRN anemia 03/18/20 07/10/24 History iron) tablet (Feosol) dicyclomine 20 mg tablet 20 mg PO TID abdominal pain 11/02/21 07/10/24 History dutasteride 0.5 mg-tamsulosin ER 2 cap PO HS 11/02/21 07/10/24 History 0.4 mg capsule ext.release 24hr mphas (Yancy) gabapentin 300 mg capsule 300 mg PO BID 11/02/21 07/10/24 History bumetanide 1 mg tablet 1 mg PO QAM 01/04/22 07/10/24 History doxazosin 4 mg tablet 8 mg PO HS 01/04/22 07/10/24 History omeprazole 20 mg capsule,delayed 20 mg PO DAILYBB 01/04/22 07/10/24 History release ondansetron 4 mg disintegrating 4 mg PO Q6H PRN nausea and 01/04/22 07/10/24 Rx tablet vomiting #14 tabs gabapentin 100 mg capsule 100 mg PO HS 01/03/23 07/10/24 History sertraline 100 mg tablet (Zoloft) 200 mg PO QAM 01/03/23 07/10/24 History hydrocortisone 5 mg tablet 10 mg PO HS 06/30/24 07/10/24 History hydrocortisone 5 mg tablet 20 mg PO DAILY 06/30/24 07/10/24 History methimazole 5 mg tablet 5 mg PO DAILY 06/30/24 07/10/24 History potassium chloride 20 mEq 20 meq PO DAILY 06/30/24 07/10/24 History tablet,extended release sucralfate 1 gram tablet 1 g PO AC 06/30/24 07/10/24 History atorvastatin 40 mg tablet 40 mg PO QAM 30 days #30 tabs 07/02/24 07/10/24 Rx isosorbide mononitrate 30 mg 30 mg PO QAM 30 days #30 tabs 07/02/24 07/10/24 Rx tablet,extended release 24 hr lisinopril 20 mg tablet 20 mg PO QAM 30 days #30 tabs 07/02/24 07/10/24 Rx metoprolol succinate 50 mg 50 mg PO BID 30 days #60 tabs 07/02/24 07/10/24 Rx tablet,extended release 24 hr ticagrelor 90 mg tablet (Brilinta) 90 mg PO BID 30 days #60 tabs 07/02/24 07/10/24 Rx hydrocodone 5 mg-acetaminophen 325 1 - 2 tab PO Q8H PRN Pain 07/10/24 07/10/24 History mg tablet Past Med/Surg History Problem List Elevated troponin ASCVD (arteriosclerotic cardiovascular disease) Abnormal EKG Prediabetes History of CAD (coronary artery disease) Acute on chronic kidney failure Altered mental status Delirium Anxiety (Acute) Ataxia (Acute) Dyslipidemia, goal LDL below 70 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 S/P right coronary artery (RCA) stent placement Non-sustained ventricular tachycardia (Acute) NSTEMI (non-ST elevated myocardial infarction) (Acute) ACS (acute coronary syndrome) STEMI (ST elevation myocardial infarction) Chest pain (Acute) Trochanteric bursitis of right hip Osteoarthritis of finger Strain of left knee Vitamin D deficiency Blind left eye History of pituitary adenoma MCL sprain of left knee Chronic kidney disease, stage III (moderate) Neck Pain Dyslipidemia Osteopenia Prostatic hypertrophy Chronic low back pain Anxiety Hypertension (Acute) ACTH deficiency (Chronic) Panhypopituitarism (Chronic) Anemia (Chronic) 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 TORRES Deep vein thrombosis RLE - 3 YEARS AGO - CAUSE? - TREATED WITH BLOOD THINNERS. BPH (benign prostatic hyperplasia) IBS (irritable bowel syndrome) GERD (gastroesophageal reflux disease) Hyperthyroidism History of melanoma Hearing deficit BL MCRAE Hypertension Hyperlipidemia Lumbar herniated disc MULTIPLE HLD (hyperlipidemia) CKD (chronic kidney disease) Opioid dependence Surgical History Hx laparoscopic cholecystectomy (06/03/19) Laparoscopic Cholecystectomy Dr. 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 Status post trigger finger release History of esophagogastroduodenoscopy (EGD) 04/20/2019. MAC no issues. History of colonoscopy History of melanoma excision CHEST - W/ SKIN GRAFTING. 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 Required: No Beliefs That Will Affect Care: None Current Living Situation: Spouse Feels Safe at Home: Yes Assistive Devices: None Review of Systems Review of Systems: Neuro: (-) Falls, trauma, slurred speech HEENT: (-) MCRAE, dizziness, dysphagia, visual or auditory changes CV: (-) CP, palpitations, swelling Resp: (-) SOB GI: (-) appetite changes, N/V/D, bowel changes : (-) urinary changes Skin: (-) rashes Psych: (-) anxiety, depression Physical Exam Physical Exam: Neuro: AAOx4, PERRLA, no aphagia, memory changes, CNII-XII grossly intact HEENT: head normocephalic, moist mucus membranes CV: S1/S2, (-) M/G/R, (-) edema, cap refill < 3 seconds. Right TR band in place. No bleeding observed. Resp: Lungs CTA in all nolasco. On RA GI: Abdomen S/NT/ND, Ax4 bowel sounds, (-) CVA tenderness Musculoskeletal: 5/5 B/L UE strength, 5/5 B/L LE strength. No gait disturbance Skin: (-) rashes , (-) erythema. Psych: euthymic mood Results & Data Results & Data Vital Signs (Past 12 Hours) Vital Signs Temp Pulse Pulse Resp BP BP Pulse Ox 07/10/24 13:09 37 C 77 18 177/85 H 94 07/10/24 12:30 80 16 136/77 07/10/24 12:28 77 16 138/81 07/10/24 10:59 80 12 140/84 99 07/10/24 10:22 98 H 07/10/24 10:09 96 07/10/24 10:09 07/10/24 09:54 36.3 C L 99 H 20 151/94 H 99 07/10/24 09:51 18 99 07/10/24 09:51 O2 Del Method O2 Flow Rate 07/10/24 13:09 Room Air 07/10/24 12:30 Room Air 07/10/24 12:28 Room Air 07/10/24 10:59 Nasal Cannula 2 07/10/24 10:22 07/10/24 10:09 Nasal Cannula 2 07/10/24 10:09 Nasal Cannula 2 07/10/24 09:54 07/10/24 09:51 07/10/24 09:51 Room Air Laboratory Results Short CBC 07/10/24 Range/Units 10:11 WBC 10.72 (4.8-10.8) K/ul Hgb 14.6 (14.0-18.0) g/dl Hct 40.5 L (42.0-52.0) % Plt Count 204 (130-400) K/uL BMP 07/10/24 10:11 Sodium 141 Potassium 3.3 L D Chloride 106 Carbon Dioxide 22 BUN 32 H Creatinine 1.58 H Glucose 101 H Calcium 10.1 Liver Function 07/10/24 Range/Units 10:11 Total Bilirubin 0.7 (0.2-1.0) mg/dl AST 110 H (13-39) U/L ALT 39 (7-52) U/L Alkaline Phosphatase 85 (34-104) U/L Albumin 4.4 (3.4-5.0) gm/dl Diagnostic Findings Chest X-Ray 07/10/24 10:09 XR chest 1V portable CLINICAL HISTORY: Chest pain, nonspecific TECHNIQUE: Single frontal radiograph of the chest was obtained. Comparison: Comparison is made to chest radiograph 07/07/2024 FINDINGS: No lines and tubes are seen. Calcified aortic knob is seen. The lungs are clear. No evidence of pleural effusion or pneumothorax. IMPRESSION: No acute chest disease. ACT 112: Negative or not required by law. Electronically signed by: Donald Fabian M.D. 07/10/2024 10:26 AM Code Status & VTE Plan Code Status Full code in the event of cardiac or respiratory arrest VTE Prophylaxis Plan VTE Prophylaxis will be ordered: Yes Supervising Physician Co-Signing Physician Notes Attending addendum: The patient was seen and examined in telemetry unit He is status post cardiac catheterization for ongoing chest pain following recent coronary intervention about 10 days ago Noted to have no significant blockages and medical management is contemplated Denies any chest pain, shortness of breath at rest and does not have any swelling of the legs On examination Lying in bed without any acute distress Remains hemodynamically stable Chestclear to auscultate bilaterally HeartS1-S2, regular Abdomenbenign, bowel sound present Extremitiestrace edema bilaterally CNSalert, awake and oriented x 3. No focal sensory or no motor deficit appreciated His admission labs, EKG, and imaging studies reviewed Noted to have elevated troponin at 632.7 and hypokalemic with dynamic EKG changes without any significant ST elevation or depression Status post cardiac cath with complex history of CAD and medical management was contemplated Cardiac cath summary is as below: 1. Widely patent RCA and circumflex stents 2. Stable multivessel CAD -50-60% mid LAD 30-40% ostial and 40% distal circumflex 40-50% distal RCA prior to PDA. 60-70% ostial RPDA. Jailed medium RV branch with 90% ostial stenosis and LESTER II flow (question possible culprit for recurrent symptoms) Cardiology has been consulted Other significant medical conditions remained stable and as mentioned above Agree with assessment and plan as documented by Negar CHU and take the full responsibility of care DR Viraj Vines
[2024-07-10] MEDS ORDERED: INFLUENZA VACC TS2024-25(65y+)/PF (IIV3) 0.5mL Syr IM ONE (13:57)
[2024-07-10] MEDS: POTASSIUM CHLORIDE / WTR 10 MEQ/100 ML PLCT IV SCH (14:12)
[2024-07-10] MEDS: ACETAMINOPHEN 500 MG TAB PO PRN (15:14)
[2024-07-10] MEDS: SUCRALFATE 1 GM TAB PO SCH (16:44)
[2024-07-10] MEDS: CALCIUM CARBONATE 500 MG CHEWABLE TAB PO PRN (18:25)
[2024-07-10] MEDS: GABAPENTIN 300 MG CAP PO SCH (20:06)
[2024-07-10] MEDS: HYDROCORTISONE 10 MG TAB PO SCH (20:07)
[2024-07-10] MEDS: DOXAZosin MESYLATE 4 MG TAB PO SCH (20:07)
[2024-07-10] MEDS: TICAGRELOR 90 MG TAB PO SCH (20:08)
[2024-07-10] MEDS: traZODone HCL 50 MG TAB PO SCH (20:08)
[2024-07-10] MEDS: METOPROLOL SUCC 50MG EXT REL TAB PO SCH (20:08)
[2024-07-10] MEDS: FINASTERIDE 5 MG TAB PO SCH (20:09)
[2024-07-10] MEDS: GABAPENTIN 100 MG CAP PO SCH (20:09)
[2024-07-10] MEDS: TAMSULOSIN HCL 0.4 MG CAP PO SCH (20:09)
[2024-07-10] MEDS: DICYCLOMINE HCL 20 MG TAB PO SCH (20:47)
--- NOTE | 2024-07-10 21:04 | Electrocardiogram Report ---
Test Reason : Blood Pressure : */* mmHG Vent. Rate : 94 BPM Atrial Rate : 94 BPM P-R Int : 170 ms QRS Dur : 86 ms QT Int : 336 ms P-R-T Axes : 50 -58 51 degrees QTcB Int : 421 ms Normal sinus rhythm Left axis deviation Inferior-posterior infarct (cited on or before 30-Jun-2024) Abnormal ECG When compared with ECG of 07-Jul-2024 18:16, Vent. rate has increased by [address] depression is now present in lateral leads Confirmed by Bartolo Albright ([id number]) on 07/10/2024 9:04:06 PM Referred By: Confirmed By: Bartolo Albright
[2024-07-10] MEDS: HEPARIN SODIUM/DEXTROSE 25,000 UNITS/500 ML BAG IV SCH (22:54)
[2024-07-11] MEDS: PANTOprazole 40 MG TAB PO SCH (06:29)
[2024-07-11 07:39] LABS: BUN Creatinine Ratio 21.1 (10-20); Calcium 9.1 mg/dl (8.6-10.3); Creatinine Clr Calc Pharmacy 36.8 ml/min; Hematocrit (blood only) 34.7 % (42.0-52.0); Hemoglobin 12.2 g/dl (14.0-18.0); Mean Corpuscular Hemoglobin 31.9 pg (25.0-34.0); Mean Corpuscular Hgb Conc 35.2 g/dL (32.0-36.0); Mean Corpuscular Volume 90.6 fL (80.0-100.0); Mean Platelet Volume 10.6 fL (9.4-12.4); Platelet Count 168 K/uL (130-400); Potassium 4.5 mmol/L (3.5-5.1); RDW Coefficient of Variation 12.8 % (11.5-14.5); RDW Standard Deviation 42.5 fL (36.4-46.3); Red Blood Count 3.83 M/uL (4.70-6.10); White Blood Count 8.31 K/ul (4.8-10.8)
[2024-07-11] MEDS: ATORVASTATIN 40 MG TAB PO SCH (08:29)
[2024-07-11] MEDS: ASPIRIN 81 MG ECTAB PO SCH (08:29)
[2024-07-11] MEDS: ISOSORBIDE MONO EXTENDED REL 30 MG TABCR PO SCH (08:29)
[2024-07-11] MEDS: methIMAzole 5 MG TABLET PO SCH (08:29)
[2024-07-11] MEDS: BUMETANIDE 1 MG TAB PO SCH (08:29)
[2024-07-11] MEDS: HYDROCORTISONE 10 MG TAB PO SCH (08:29)
[2024-07-11] MEDS: MAGNESIUM OXIDE 400 MG TAB PO SCH (08:29)
[2024-07-11] MEDS: lisinopril 20 MG TAB PO SCH (08:29)
[2024-07-11] MEDS: SERTRALINE HCL 100 MG TABLET PO SCH (08:29)
--- NOTE | 2024-07-11 09:45 | Cardiology Progress Note ---
Date of Service July 11, 2024 Assessment & Plan (1) Chest pain: (2) Abnormal EKG: (3) ASCVD (arteriosclerotic cardiovascular disease): (4) Hypertension: (5) Dyslipidemia, goal LDL below 70: (6) Elevated troponin: Plan 84-year-old male with recent late presentation STEMI, undergoing complex coronary intervention ten days ago. Hospital course at that time notable for nonsustained ventricular tachycardia and accelerated idioventricular rhythm on telemetry. Patient returned to the ER in the AM of 07/10 with chest and abdominal pain and chronic bilateral leg pain similar to chronic restless leg complaints. Initial EKG with inferior ST segment elevation with reciprocal ST depression in V2-V3. Presenting symptoms improved following treatment with supplemental oxygen, nitrates, morphine, and IV metoprolol. Repeat EKG following improvement in pain with resolution of acute findings. Chest imaging and examination without volume overload. ER telemetry benign thus far. Patient with known chronic kidney disease, creatinine 1.58 mg/dL. Concern for stent thrombosis noted. Recommend referral for urgent coronary angiography. Further recommendations to come. 07/11/2024 84-year-old male with recent coronary invention June 30 presented with symptoms of chest pain leg pain and marked agitation. EKG demonstrated ST elevation Subsequent cardiac catheterization revealed patent stents with diffuse coronary atherosclerosis. No evidence of stent thrombosis Echocardiogram today demonstrates mild hypokinesis of the inferior posterior wall at the base with improved LV systolic function. No infarct expansion or pericardial effusion. EF 55 to 60% Plan ongoing medical therapies as ordered heart rate and blood pressure appropriate with patient on guideline directed optimal medical regimen Concern raised regarding possible narcotic withdrawal as precipitant of acute complaints. Evaluation per primary team Contact with questions Admission and Anticipated Discharge Date Admission Date: July 10, 2024 Subjective Patient seen and examined, chart, telemetry reviewed Denies any further chest pains leg pain, back pain controlled "Calm" this morning Had bleeding at right radial access site yesterday afternoon no further recurrences site stable Physical Exam Physical Exam: General: A&Ox3. HENT: Normocephalic. Atraumatic. Eyes: PER. Conjunctiva pink, sclera clear. Neck: No JVD. No HJR. No carotid bruits Heart: RRR, 84 bpm. No murmur. No rub. Lungs: Clear to auscultation. Abdomen: Healing ecchymosis. No abdominal bruit. +BS. Soft. Nontender. No masses or organomegaly. Extremities: No clubbing, cyanosis, or edema. Limited neurological examination is without focal deficits. Pulses: radial=2/4, posterior tibial=2/4. Right radial access site healing well without significant hematoma Results & Data Vital Signs (Past 12 Hours) Vital Signs Temp Pulse Pulse Resp BP Pulse Ox O2 Del Method 07/11/24 07:14 36.8 C 82 18 134/80 96 Room Air 07/11/24 03:15 36.5 C 73 18 159/75 H 95 Room Air 07/10/24 23:20 36.6 C 72 18 152/74 H 92 Room Air 07/10/24 23:00 69 Laboratory Results Laboratory Results - last 24 hr 07/10/24 07/11/24 10:11 06:30 WBC 10.72 8.31 RBC 4.52 L 3.83 L Hgb 14.6 12.2 L Hct 40.5 L 34.7 L MCV 89.6 90.6 MCH 32.3 31.9 MCHC 36.0 35.2 RDW Std Deviation 41.0 42.5 RDW Coeff of Mehnaz 12.5 12.8 Plt Count 204 168 MPV 10.2 10.6 Immature Gran % (Auto) 0.4 Neut % (Auto) 60.1 Lymph % (Auto) 26.0 Murray % (Auto) 7.5 Eos % (Auto) 5.4 Baso % (Auto) 0.6 Neut # (Auto) 6.45 Lymph # (Auto) 2.79 Murray # (Auto) 0.80 H Eos # (Auto) 0.58 H Baso # (Auto) 0.06 Immature Gran # (Auto) 0.04 PT 10.9 INR 1.0 APTT 28 PTT Ratio 1.0 Sodium 141 143 Potassium 3.3 L D 4.5 D Chloride 106 111 H Carbon Dioxide 22 25 Anion Gap 13 H 7 BUN 32 H 31 H Creatinine 1.58 H 1.47 H Est Cr Clr Drug Dosing 34.3 36.8 eGFR 43.13 47.03 BUN/Creatinine Ratio 20.3 H 21.1 H Glucose 101 H 95 Calcium 10.1 9.1 Magnesium 2.0 Total Bilirubin 0.7 AST 110 H ALT 39 Alkaline Phosphatase 85 Troponin I High Sens 632.7 H* Total Protein 7.4 Albumin 4.4 Globulin 3.0 Albumin/Globulin Ratio 1.5
--- NOTE | 2024-07-11 11:32 | Hospitalist Progress Note ---
Date of Service July 11, 2024 Assessment & Plan (1) Elevated troponin: (2) ASCVD (arteriosclerotic cardiovascular disease): (3) ACS (acute coronary syndrome): (4) NSTEMI (non-ST elevated myocardial infarction): (5) Hypertension: (6) Dyslipidemia: Plan Chest pain Coronary artery disease -s/p cardiac cath:Widely patent RCA and circumflex stents. Stable multivessel CAD. 50-60% mid LAD. 30-40% ostial and 40% distal circumflex. 40-50% distal RCA prior to PDA. 60-70% ostial RPDA. No signs of stent thrombosis during cath -ECHO: Moderate concentric LVH. Mild hypokinesis of inferior posterior wall at the base. EF 55 to 60%. No infarct expansion and overall systolic function has improved when compared to prior echo. -Troponin elevation likely demand ischemia -- Continue aspirin, Lipitor, Brilinta, isosorbide, lisinopril, metoprolol Appreciate cardiology input Needs follow-up with cardiology on discharge Hypokalemia: Replace and monitor HTN: Continue isosorbide, lisinopril Monitor BP HLD: Continue atorvastatin DVT Px: SCDs CODE STATUS Full code Admission and Anticipated Discharge Date Admission Date: July 10, 2024 Subjective Patient is seen and examined at bedside Chest pain resolved Had 1 loose BM this morning Offers no complaints today Denies any dyspnea, dizziness, nausea, vomiting, abdominal pain Discussed with cardiology today Plan to be discharged home today Review of Systems Review of Systems: All systems reviewed & are unremarkable except as noted in Subjective Physical Exam Physical Exam: Physical Exam: Vitals signs as noted above General Appearance:Moderately built and nourished, no apparent distress Head: normocephalic, Atraumatic Eyes: normal inspection, EOMI Neck: supple, Trachea midline Respiratory/Chest: Normal breath sounds, CTA, No accessory muscle use Cardiovascular: S1, S2, No murmur Abdomen/GI:Soft, Non tender, Bowel sounds present Extremities/Musculoskeletal:normal inspection, no edema Neurologic/Psych:AAOX3, grossly no focal neurological deficits Skin: normal color, warm Results & Data Results & Data Vital Signs (Past 12 Hours) Vital Signs Temp Pulse Resp BP Pulse Ox O2 Del Method 07/11/24 09:47 Room Air 07/11/24 07:14 36.8 C 82 18 134/80 96 Room Air 07/11/24 03:15 36.5 C 73 18 159/75 H 95 Room Air Laboratory Results Short CBC 07/11/24 Range/Units 06:30 WBC 8.31 (4.8-10.8) K/ul Hgb 12.2 L (14.0-18.0) g/dl Hct 34.7 L (42.0-52.0) % Plt Count 168 (130-400) K/uL BMP 07/11/24 06:30 Sodium 143 Potassium 4.5 D Chloride 111 H Carbon Dioxide 25 BUN 31 H Creatinine 1.47 H Glucose 95 Calcium 9.1
--- NOTE | 2024-07-11 11:46 | Discharge Summary ---
Date of Service July 11, 2024 Admission HPI Per Admitting Provider Mr. Kai Wilkerson is an 84-year-old male that presented today with abdominal pain and lower extremity bilateral leg pain. He had a recent hospitalization here at [facility] 10 days ago and was identified to have a inferior lateral wall STEMI. Coronary angiography revealed severe multivessel CAD. 3 ANJANA were placed and he was started on dual antiplatelet therapy with aspirin and Brilinta. Past medical history includes ASCVD, CAD s/p recent stent placement, hypertension, hyperlipidemia, history of pituitary adenoma surgery, panhypopituitarism (growth hormone deficiency, ACTH deficiency, central hypogonadism, toxic multinodular goiter as per records),hyperprolactinemia as per records, chronic steroid Rx, CRI (baseline creatinine 1.4), chronic anemia (baseline hemoglobin 12-13), melanoma as per records BPH, anxiety/mood disorder, history of DVT as per records, chronic back pain secondary to LSS, past tobacco abuse. Patient returned to the hospital 1022 with AMS and leg pain. He was also complaining of recurrent chest pain. EKG revealed acute changes with ST elevation in lead III and V2 and V3. He was given aspirin, nitro and morphine with resolution of pain. Repeat EKG showed improvement. High sensitive troponin at that time 600+. Patient here today with recurrent chest pain. Patient being transported to the [facility] for urgent coronary angiogram very to exclude stent thrombosis. Per chemical laboratory scientist, no stent thrombosis. Dr. Dozier recommend medical management with additional antianginal therapy. I was able to see him post catheterization. He is lying in his hospital bed in no apparent distress. He denies chest pain, SOB, palpitations, N/V/D, abdominal pain or tenderness, recent fall or trauma. Patient will be admitted for further evaluation and management. Please see A/P for further details. Admission Exam Per Admitting Provider Neuro: AAOx4, PERRLA, no aphagia, memory changes, CNII-XII grossly intact HEENT: head normocephalic, moist mucus membranes CV: S1/S2, (-) M/G/R, (-) edema, cap refill < 3 seconds. Right TR band in place. No bleeding observed. Resp: Lungs CTA in all nolasco. On RA GI: Abdomen S/NT/ND, Ax4 bowel sounds, (-) CVA tenderness Musculoskeletal: 5/5 B/L UE strength, 5/5 B/L LE strength. No gait disturbance Skin: (-) rashes , (-) erythema. Psych: euthymic mood Principal Diagnosis Chest Pain Discharge Data Allergies Allergy/AdvReac Type Severity Reaction Status Date / Time No Known Allergies Allergy Verified 07/07/24 16:47 Consultations Laboratory Results WBC 8.31 K/ul (4.8-10.8) 07/11/24 06:30 RBC 3.83 M/uL (4.70-6.10) L 07/11/24 06:30 Hgb 12.2 g/dl (14.0-18.0) L 07/11/24 06:30 Hct 34.7 % (42.0-52.0) L 07/11/24 06:30 MCV 90.6 fL (80.0-100.0) 07/11/24 06:30 MCH 31.9 pg (25.0-34.0) 07/11/24 06:30 MCHC 35.2 g/dL (32.0-36.0) 07/11/24 06:30 RDW Std Deviation 42.5 fL (36.4-46.3) 07/11/24 06:30 RDW Coeff of Mehnaz 12.8 % (11.5-14.5) 07/11/24 06:30 Plt Count 168 K/uL (130-400) 07/11/24 06:30 MPV 10.6 fL (9.4-12.4) 07/11/24 06:30 Immature Gran % (Auto) 0.4 % 07/10/24 10:11 Neut % (Auto) 60.1 % 07/10/24 10:11 Lymph % (Auto) 26.0 % 07/10/24 10:11 [place] % (Auto) 7.5 % 07/10/24 10:11 Eos % (Auto) 5.4 % 07/10/24 10:11 Baso % (Auto) 0.6 % 07/10/24 10:11 Neut # (Auto) 6.45 K/uL (1.40-6.50) 07/10/24 10:11 Lymph # (Auto) 2.79 K/uL (1.20-3.40) 07/10/24 10:11 [place] # (Auto) 0.80 K/uL (0.11-0.59) H 07/10/24 10:11 Eos # (Auto) 0.58 K/uL (0.00-0.50) H 07/10/24 10:11 Baso # (Auto) 0.06 K/uL (0.00-0.20) 07/10/24 10:11 Immature Gran # (Auto) 0.04 K/uL (0.01-0.20) 07/10/24 10:11 PT 10.9 Seconds (9.0-12.0) 07/10/24 10:11 INR 1.0 (0.9-1.1) 07/10/24 10:11 APTT 28 Seconds (21-31) 07/10/24 10:11 PTT Ratio 1.0 07/10/24 10:11 Sodium 143 mmol/L (136-145) 07/11/24 06:30 Potassium 4.5 mmol/L (3.5-5.1) D 07/11/24 06:30 Chloride 111 mmol/L (98-107) H 07/11/24 06:30 Carbon Dioxide 25 mmol/L (21-32) 07/11/24 06:30 Anion Gap 7 (3-11) 07/11/24 06:30 BUN 31 mg/dl (6-23) H 07/11/24 06:30 Creatinine 1.47 mg/dl (0.6-1.4) H 07/11/24 06:30 Est Cr Clr Drug Dosing 36.8 ml/min 07/11/24 06:30 eGFR 47.03 07/11/24 06:30 BUN/Creatinine Ratio 21.1 (10-20) H 07/11/24 06:30 Glucose 95 mg/dl (70-99(Fasting)) 07/11/24 06:30 Calcium 9.1 mg/dl (8.6-10.3) 07/11/24 06:30 Magnesium 2.0 mg/dl (1.7-2.4) 07/11/24 06:30 Total Bilirubin 0.7 mg/dl (0.2-1.0) 07/10/24 10:11 AST 110 U/L (13-39) H 07/10/24 10:11 ALT 39 U/L (7-52) 07/10/24 10:11 Alkaline Phosphatase 85 U/L (34-104) 07/10/24 10:11 Troponin I High Sens 632.7 pg/ml (0-20) H* 07/10/24 10:11 Total Protein 7.4 gm/dl (6.0-8.3) 07/10/24 10:11 Albumin 4.4 gm/dl (3.4-5.0) 07/10/24 10:11 Globulin 3.0 gm/dl (2.5-4.0) 07/10/24 10:11 Albumin/Globulin Ratio 1.5 (0.9-2) 07/10/24 10:11 Impressions Chest X-Ray 07/10/24 10:09 XR chest 1V portable CLINICAL HISTORY: Chest pain, nonspecific TECHNIQUE: Single frontal radiograph of the chest was obtained. Comparison: Comparison is made to chest radiograph 07/07/2024 FINDINGS: No lines and tubes are seen. Calcified aortic knob is seen. The lungs are clear. No evidence of pleural effusion or pneumothorax. IMPRESSION: No acute chest disease. ACT 112: Negative or not required by law. Electronically signed by: Donald Fabian M.D. 07/10/2024 10:26 AM Procedures Performed Operation Date: 07/10/24 11:00 Actual Procedures p Cineradiography w/Routine Exam - Xander Dozier MD s Cath, Left with Cors and Vent - Xander Dozier MD Ordered Studies 07/10/24 10:52 CL Cath Imgs for PACS use only Stat Hospital Course (1) Elevated troponin: (2) ASCVD (arteriosclerotic cardiovascular disease): (3) ACS (acute coronary syndrome): (4) NSTEMI (non-ST elevated myocardial infarction): (5) Hypertension: (6) Dyslipidemia: Plan Chest pain Coronary artery disease -s/p cardiac cath:Widely patent RCA and circumflex stents. Stable multivessel CAD. 50-60% mid LAD. 30-40% ostial and 40% distal circumflex. 40-50% distal RCA prior to PDA. 60-70% ostial RPDA. No signs of stent thrombosis during cath -ECHO: Moderate concentric LVH. Mild hypokinesis of inferior posterior wall at the base. EF 55 to 60%. No infarct expansion and overall systolic function has improved when compared to prior echo. -Troponin elevation likely demand ischemia -- Continue aspirin, Lipitor, Brilinta, isosorbide, lisinopril, metoprolol Appreciate cardiology input Needs follow-up with cardiology on discharge Hypokalemia: Replace and monitor HTN: Continue isosorbide, lisinopril Monitor BP HLD: Continue atorvastatin DVT Px: SCDs CODE STATUS Full code Total Time Total Time Spent Total Time Spent (In Minutes): 46 minutes Discharge Plan Discharge Items Patient Disposition: Home - Self-Care Reason For Visit: ACS Discharge Diagnosis: Chest Pain Chronic lower back pain Activity: Per Instructions section Exercise/Sports: Wait until after follow-up appointment Non-emergency contact: Primary Care Provider Call non-emergency contact if: you have any medication questions, your symptoms worsen, your pain is concerning for you and you have a fever Follow-up/Referrals: Shalom Lieberman MD [Primary Care Provider] - Diet: Heart Healthy Addtl Attending Provider Instructions: Follow-up with your primary care physician in 1 week Follow-up with your orthopedic spine surgeon/pain management for assessment and further management of lower back pain Follow-up with your diesel fitter mechanic as recommended Seek immediate medical attention if your symptoms reoccur or worsen Please take all medications as instructed on discharge list below. Please call if you have any questions or problems. You can reach a [facility] hospitalist on duty at [facility] 24 hours a day by calling [phone] Add Hedis Analyst Provider Instructions: ACTIVITY RECOMMENDATIONS: Excess manipulation of the wrist should be avoided for the next 24-48 hours. * No lifting over 2 pounds (approximately a 1/2 gallon of milk) with the utilized arm for 24 hours. * No strenuous activity such as bowling or tennis for 3 days. * Keep the site of the procedure covered with a bandage for 24 hours. *You may shower the day after the procedure. Do not take a tub bath or submerge the puncture site in water for the next 3 days. *Do not operate any motorized equipment for 3 days. SPECIAL CARE INSTRUCTIONS: The site may be slightly bruised and sore following your procedure. Should any of the following occur, contact the DrShan who performed your procedure. 1. Redness/inflammation, swelling, chills, or fever, or colored drainage at procedure site within 3-7 days after your procedure. 2. Coldness, discoloration, ongoing numbness, severe pain, or swelling. Expect mild tingling of hand and tenderness at the puncture site for up to three days. If this persists beyond three days, or other symptoms develop, notify the Dr. who performed your procedure. BLEEDING: If the procedure site on your wrist begins to bleed, do not panic 1. Place 1 or 2 fingers firmly just slightly above the insertion site to stop the bleeding. You may be able to feel your pulse as you hold pressure. 2. Lift your finger after 5 minutes to see if the bleeding has stopped. 3. Once the bleeding has stopped, gently wipe the wrist area clean with a bandage. * If the bleeding from your wrist does not stop after 10 minutes, or if there is a large amount of bleeding or spurting, call 911 (do not drive yourself to the hospital). SKIN IRRITATION: * You may experience some redness and/or swelling in the area where radiation was administered. If any skin irritation occurs, please contact your family physician. FOLLOW UP VISIT: Keep any scheduled doctor appointments. Pending Studies at Discharge: No Stand-Alone Forms: My [facility] [place] Heels, Smoking Cessation Medications and DC Order Prescriptions: Continued aspirin 81 mg tablet,delayed release (DR/EC) 81 mg PO QAM Qty: 30 0RF calcium carbonate-vitamin D3 [Calcium 600 + D(3)] 600 mg(1,500mg) -200 unit tablet 1 tab PO BID Qty: 30 0RF magnesium 250 mg tablet 250 mg PO QAM Qty: 30 0RF sertraline [Zoloft] 100 mg tablet 200 mg PO QAM dicyclomine 20 mg tablet 20 mg PO TID ascorbic acid (vitamin C) 1,000 mg tablet 500 mg PO QAM ferrous sulfate [Feosol] 325 mg (65 mg iron) tablet 325 mg PO QAM PRN (Reason: anemia) gabapentin 300 mg capsule 300 mg PO BID dutasteride-tamsulosin [Yancy] 0.5-0.4 mg capsule, ER multiphase 24 hr 2 cap PO HS gabapentin 100 mg capsule 100 mg PO HS Rx Instructions: takes 300 am/pm; extra 100mg in PM trazodone 150 mg tablet 150 mg PO HS hydroxyzine HCl 10 mg Tablet 10 mg PO Q6H PRN (Reason: anxiety) Qty: 30 0RF multivitamin [Multiple Vitamins] Tablet 1 tab PO QAM omeprazole 20 mg capsule,delayed release(DR/EC) 20 mg PO DAILYBB doxazosin 4 mg tablet 8 mg PO HS bumetanide 1 mg tablet 1 mg PO QAM ondansetron 4 mg tablet,disintegrating 4 mg PO Q6H PRN (Reason: nausea and vomiting) Qty: 14 0RF hydrocortisone 5 mg tablet 20 mg PO DAILY methimazole 5 mg tablet 5 mg PO DAILY hydrocortisone 5 mg tablet 10 mg PO HS sucralfate 1 gram Tablet 1 g PO AC potassium chloride 20 mEq tablet extended release 20 meq PO DAILY atorvastatin 40 mg Tablet 40 mg PO QAM 30 Days Qty: 30 2RF metoprolol succinate 50 mg Tablet Extended Release 24 Hr 50 mg PO BID 30 Days Qty: 60 2RF lisinopril 20 mg Tablet 20 mg PO QAM 30 Days Qty: 30 2RF isosorbide mononitrate 30 mg Tablet Extended Release 24 Hr 30 mg PO QAM 30 Days Qty: 30 2RF Brilinta 90 mg Tablet 90 mg PO BID 30 Days Qty: 60 2RF Discontinued hydrocodone-acetaminophen 5-325 mg tablet 1 - 2 tab PO Q8H PRN (Reason: Pain) Discharge Orders: Discharge Order (Routine); Ordered 07/11/24 Ordered By: Feliberto Rinaldi Admission Data Admit Date/Time: 07/10/24 13:11 Attending Provider: Feliberto Rinaldi Admit Provider: Lane Kendall Primary Care Provider: Shalom Lieberman Other Providers: Alona Vines; Lane Kendall
--- NOTE | 2024-07-11 11:54 | Electrocardiogram Report ---
Test Reason : Blood Pressure : */* mmHG Vent. Rate : 86 BPM Atrial Rate : 86 BPM P-R Int : 170 ms QRS Dur : 88 ms QT Int : 362 ms P-R-T Axes : 40 -54 8 degrees QTcB Int : 433 ms Normal sinus rhythm Left axis deviation possible Inferior infarct Poor R wave progression, consider anterior RI vs. lead placement vs. LVH Nonspecific ST abnormality Abnormal ECG When compared with ECG of 10-Jul-2024 10:02, Inverted T waves have replaced nonspecific T wave abnormality in Inferior leads Nonspecific T wave abnormality now evident in Lateral leads QT has shortened Confirmed by Xander Mae ([id number]) on 07/11/2024 11:54:38 AM Referred By: REFERRED SELF Confirmed By: Xander Mae
[2024-07-11 11:55] VITALS: BP 97/53; RESP 20; TEMP 98.6; O2SAT 95
[2024-07-11 12:50] VITALS: PULSE 77
[2024-07-12 15:06] LABS: iSTAT Creatinine 1.6 mg/dl (0.6-1.3); iSTAT Hemoglobin 15.3 g/dl (14.0-18.0); iSTAT Ionized Calcium 1.21 mmol/l (1.12-1.32); iSTAT Potassium 3.3 mmol/L (3.3-5.0)
== END 2024-07-11 12:49 | disposition home or self-care (01) | DRG 281 ==
LOC: ED 09:51 → 2S 10:55 → CC 10:55 → SUATTDRO 13:11

== ENCOUNTER 2024-07-28 22:08 | Inpatient (IN) ==
--- NOTE | 2024-07-28 22:49 | Emergency Department Note ---
Impression & Plan Adrenal insufficiency, Panhypopituitarism, Acute on chronic renal insufficiency, Hypercalcemia ED Provider Note NAME: PUJA GROSSMAN AGE: 84 SEX: M : 1940 ARRIVES VIA: Walk-In INFORMANT: Patient ED PROVIDER(S): Giovanni Juarez MD CHIEF COMPLAINT: Generalized weakness, dizziness, spasms. 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 Patient reports she has had daily diarrhea with several episodes per day since his discharge from this facility on 07/11 following his PCI. Patient denies any recent antibiotics. He denies measured fevers. Denies any cough, congestion or shortness of breath. The patient and his perseverate on the fact that he was taken off of his chronic narcotics which she had been on for years for chronic back pain. On arrival the patient was initially normotensive in triage in the 110/80s however upon arrival to his room was hypotensive in the 70s/40s but was fluid responsive improving to the 100s/50s. Heart rate was in the 50s-60s. Vital signs were otherwise stable with normal oxygen saturation on room air. He appears clinically dry. He appears fatigued. He is in no acute distress. He has no focal neurologic deficits. Head is atraumatic. There is no midline CTL spine tenderness to palpation or step-offs. EKG without overt acute ischemia. CXR negative for acute cardiopulmonary process per my personal preliminary review/interpretation. WBC within normal limits. There is no neutrophilia or left shift. H/H similar to prior range values. Platelets within normal limits. Chemistry without metabolic acidosis. VBG unremarkable. Creatinine is 2.16, slightly increased from patient's baseline range in the setting of CKD. Calcium is elevated at 11.1 likely contributing the patient's symptoms. LFTs are unremarkable. Initial high styptic troponin was 46.7 with delta 2-hour high-sensitivity troponin four 3.1, stable and downtrending. Lipase is not elevated. Procalcitonin is not elevated. TSH within normal limits. Random cortisol is 19.3. UA without convincing evidence of infection. Respiratory BioFire was negative. CT of the head, C-spine, chest and abdomen pelvis were performed with final reports pending. The patient remained hemodynamically stable following IV fluid ration and stress dose hydrocortisone with 100 mg administered. [facility] the patient for admission. CT reports subsequently finalized. CT of the head was negative for acute abnormalities with chronic microvascular ischemic changes described. CT of the cervical spine was negative for acute abnormalities. CT of the chest was negative for acute pulmonary findings. Description of groundglass densities with subtle interstitial thickening is noted likely atelectasis. Cardiomegaly and bilateral bulky appearance of thyroid gland with hypodense calcified nodules noted. CT of the abdomen pelvis demonstrates multicystic kidney disease. No acute intra-abdominal process otherwise. Further management per admitting team. Triage Nursing notes reviewed and agree them. Prior/external medical records reviewed Vital Signs: reviewed Differential diagnosis: Infection, dehydration, metabolic abnormality, hypo/hyperglycemia, electrolyte disturbance, anemia, hypoxia, cardiac sources, intracerebral event, toxicologic, neurologic, as well as other pathologies. ER treatment provided: See below. Diagnostics interpreted by me: ECG: Normal sinus rhythm, 72 bpm, no ectopy, no overt ST ovation or depression, QTc 398, QRS 90. Cardiac Monitoring: An order for continuous cardiac monitoring was placed and demonstrated Normal sinus rhythm, 72 bpm, no ectopy Laboratory studies: See below Imaging studies: See below Consultation(s): Case was discussed with Dr. Oseguera [facility] who will evaluate the patient for admission. 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 Patient reports she has had daily diarrhea with several episodes per day since his discharge from this facility on 07/11 following his PCI. Patient denies any recent antibiotics. He denies measured fevers. Denies any cough, congestion or shortness of breath. ROS: See above HPI for pertinent positives & negatives. A total of 10 systems reviewed and were otherwise negative. VITALS:See Below PHYSICAL EXAMINATION: GENERAL: Awake, alert,fatigued/chronically ill appearing, in no distress HENT: Normocephalic, atraumatic. Oropharynx with dry mucous membranes and otherwise unremarkable. EYES: Normal conjunctiva. Sclera non-icteric. NECK: Supple. No nuchal rigidity. FROM. No JVD. No midline tenderness to palpation or step-offs. RESPIRATORY: Clear to auscultation. CARDIAC: Regular rate, normal rhythm. Extremities warm and well perfused. Pulses equal. ABDOMEN: Soft, non-distended. No tenderness to palpation. No rebound or guarding. No masses. MUSCULOSKELETAL: Chest examination reveals no tenderness. The back is symmetrical on inspection without obvious abnormality. No midline tenderness to palpation or step-offs. There is no CVA tenderness to palpation. No joint edema. LOWER EXTREMITIES: Calves are equal size bilaterally and non-tender. No edema. No discoloration. NEURO: No sensory or motor deficits noted. 5/5 strength and SILT x 4 extremities. Intact finger to nose. SKIN: No rash or jaundice noted. ED COURSE: Critical Care: I have personally spent greater than 35 minutes of critical care time in the direct management of this patient. This includes bedside care, interpretation of diagnostic studies, and testing, discussion with consultants, patient, and family members, and other required patient management activities. This 35 minutes is in excess of all separately billable procedures. Giovanni Juarez MD Past Med/Surg History Problem List (Updated 07/29/24 @ 02:04 by Giovanni Juarez MD) Hypercalcemia (Acute) Acute on chronic renal insufficiency (Acute) Adrenal insufficiency (Acute) CAD (coronary atherosclerotic disease) (Acute) Anxiety (Acute) Precordial chest pain (Acute) CKD (chronic kidney disease) (Acute) Abnormal EKG (Acute) Chest pain (Acute) Acute non-ST elevation myocardial infarction (NSTEMI) (Acute) Elevated troponin ASCVD (arteriosclerotic cardiovascular disease) Abnormal EKG Prediabetes History of CAD (coronary artery disease) Acute on chronic kidney failure Altered mental status Delirium Anxiety (Acute) Ataxia (Acute) Dyslipidemia, goal LDL below 70 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 S/P right coronary artery (RCA) stent placement Non-sustained ventricular tachycardia (Acute) NSTEMI (non-ST elevated myocardial infarction) (Acute) ACS (acute coronary syndrome) STEMI (ST elevation myocardial infarction) Chest pain (Acute) Trochanteric bursitis of right hip Osteoarthritis of finger Strain of left knee Vitamin D deficiency Blind left eye History of pituitary adenoma MCL sprain of left knee Chronic kidney disease, stage III (moderate) Neck Pain Dyslipidemia Osteopenia Prostatic hypertrophy Chronic low back pain Anxiety Hypertension (Acute) ACTH deficiency (Chronic) Panhypopituitarism (Chronic) Anemia (Chronic) 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) Chronic cholecystitis (Chronic) Medical History Aspiration pneumonia Headache Muscle cramps at night HTN (hypertension) Acute renal failure superimposed on stage 3 chronic kidney disease Spasm of bowel Multiple renal cysts Deep vein thrombosis BPH (benign prostatic hyperplasia) IBS (irritable bowel syndrome) GERD (gastroesophageal reflux disease) Hyperthyroidism History of melanoma Hearing deficit Hypertension Hyperlipidemia Lumbar herniated disc HLD (hyperlipidemia) CKD (chronic kidney disease) Opioid dependence Surgical History Hx laparoscopic cholecystectomy (06/03/19) History of skin graft History of parotidectomy History of craniotomy Status post trigger finger release History of esophagogastroduodenoscopy (EGD) History of colonoscopy History of melanoma excision Family History Sister Family hx of colon cancer Father Tobacco use Coronary heart disease Mother Diverticulosis of intestine Sister Ovarian cancer Colon cancer Grandfather Cancer Aunt Cancer Uncle Cancer Grandmother (Maternal) Cancer Other No significant family history Social History Smoking Status: Former smoker Tobacco Type: Cigarettes Second Hand Exposure: No; Do You Dip or Chew Tobacco: No; Hx Alcohol Use: No Hx Substance Use: No Preferred Language: Syriac Communication Ability: Effective Visual Impairment: No Limitations Supervisor General Required: No Beliefs That Will Affect Care: None Current Living Situation: Spouse Other Information That Helps Us Care for You: No Feels Safe at Home: Yes Safety Concerns: Feels Safe At This Time Assistive Devices: None Allergies Allergies Allergy/AdvReac Type Severity Reaction Status Date / Time lidocaine [From Lidoderm] AdvReac Mild Itching Verified 07/29/24 00:53 Home Meds Home Medications Medication Instructions Recorded Confirmed multivitamin (Multiple Vitamins 1 tab PO QAM 05/27/19 07/29/24 tablet) trazodone 150 mg tablet 150 mg PO HS 10/10/19 07/29/24 ascorbic acid (vitamin C) 1,000 mg 500 mg PO QAM 03/18/20 07/29/24 tablet ferrous sulfate 325 mg (65 mg 325 mg PO QAM PRN anemia 03/18/20 07/29/24 iron) tablet (Feosol) dicyclomine 20 mg tablet 20 mg PO TID abdominal pain 11/02/21 07/29/24 dutasteride 0.5 mg-tamsulosin ER 2 cap PO HS 11/02/21 07/29/24 0.4 mg capsule ext.release 24hr mphas (Yancy) gabapentin 300 mg capsule 300 mg PO BID 11/02/21 07/29/24 bumetanide 1 mg tablet 1 mg PO QAM 01/04/22 07/29/24 doxazosin 4 mg tablet 8 mg PO HS 01/04/22 07/29/24 omeprazole 20 mg capsule,delayed 20 mg PO DAILYBB 01/04/22 07/29/24 release gabapentin 100 mg capsule 100 mg PO HS 01/03/23 07/29/24 sertraline 100 mg tablet (Zoloft) 200 mg PO QAM 01/03/23 07/29/24 hydrocortisone 5 mg tablet 10 mg PO HS 06/30/24 07/29/24 hydrocortisone 5 mg tablet 20 mg PO DAILY 06/30/24 07/29/24 methimazole 5 mg tablet 5 mg PO DAILY 06/30/24 07/29/24 potassium chloride 20 mEq 20 meq PO DAILY 06/30/24 07/29/24 tablet,extended release sucralfate 1 gram tablet 1 g PO AC 06/30/24 07/29/24 buspirone 5 mg tablet 5 mg PO TID 07/23/24 07/29/24 Previous Rx's Medication Instructions Recorded aspirin 81 mg tablet,delayed 81 mg PO QAM #30 tabs 02/23/19 release calcium 600 mg (as 1 tab PO BID #30 tabs 02/23/19 carbonate)-vitamin D3 5 mcg (200 unit) tablet (Calcium 600 + D(3)) magnesium 250 mg tablet 250 mg PO QAM #30 tabs 02/23/19 hydroxyzine HCl 10 mg tablet 10 mg PO Q6H PRN anxiety #30 tabs 10/14/19 ondansetron 4 mg disintegrating 4 mg PO Q6H PRN nausea and 01/04/22 tablet vomiting #14 tabs atorvastatin 40 mg tablet 40 mg PO QAM 30 days #30 tabs 07/02/24 isosorbide mononitrate 30 mg 30 mg PO QAM 30 days #30 tabs 07/02/24 tablet,extended release 24 hr lisinopril 20 mg tablet 20 mg PO QAM 30 days #30 tabs 07/02/24 metoprolol succinate 50 mg 50 mg PO BID 30 days #60 tabs 07/02/24 tablet,extended release 24 hr ticagrelor 90 mg tablet (Brilinta) 90 mg PO BID 30 days #60 tabs 07/02/24 nitroglycerin 0.4 mg sublingual 0.4 mg sublingual DIRECTED #14 07/23/24 tablet tabs Results & Data (ED) Vital Signs Vital Signs - 24 hr 07/28/24 22:09 07/28/24 22:19 07/28/24 22:25 Temperature 36.5 C Temperature Source Temporal Artery Scan Pulse Rate 76 Pulse Rate [Right Finger] 73 Pulse Rhythm Regular Pulse Rhythm [Right Finger] Regular Pulse Strength Normal Pulse Strength [Right Finger] Normal Respiratory Rate 18 20 Respiratory Effort / Characteristics Non-Labored Spontaneous Non-Labored Respiratory Depth Normal Normal Respiratory Pattern Regular Regular Blood Pressure 115/81 Blood Pressure [Right Arm] 78/46 L Blood Pressure Mean 92 Blood Pressure Mean [Right Arm] 56 Blood Pressure Position Sitting Blood Pressure Position [Right Arm] Lying Pulse Oximetry 99 99 Oxygen Delivery Method Room Air Room Air Sepsis Recent Fever Within 48 Hours No Sepsis New/Unexplained Change in Mental Status N/A Sepsis Action Taken by Nursing No Action Required 07/28/24 22:35 07/28/24 22:43 07/28/24 22:57 Temperature Temperature Source Pulse Rate 71 60 Pulse Rate [Right Finger] Pulse Rhythm Regular Regular Pulse Rhythm [Right Finger] Pulse Strength Pulse Strength [Right Finger] Respiratory Rate 18 17 Respiratory Effort / Characteristics Respiratory Depth Respiratory Pattern Blood Pressure Blood Pressure [Right Arm] 107/50 L Blood Pressure Mean Blood Pressure Mean [Right Arm] 69 Blood Pressure Position Blood Pressure Position [Right Arm] Pulse Oximetry 98 97 Oxygen Delivery Method Room Air Room Air Sepsis Recent Fever Within 48 Hours Sepsis New/Unexplained Change in Mental Status Sepsis Action Taken by Nursing 07/29/24 00:00 07/29/24 01:50 07/29/24 02:00 Temperature Temperature Source Pulse Rate Pulse Rate [Right Finger] 64 59 L 56 L Pulse Rhythm Pulse Rhythm [Right Finger] Regular Regular Regular Pulse Strength Pulse Strength [Right Finger] Normal Normal Normal Respiratory Rate 18 20 18 Respiratory Effort / Characteristics Non-Labored Spontaneous Non-Labored Spontaneous Non-Labored Spontaneous Respiratory Depth Normal Normal Normal Respiratory Pattern Regular Regular Regular Blood Pressure Blood Pressure [Right Arm] 144/70 H 129/55 L 116/56 L Blood Pressure Mean Blood Pressure Mean [Right Arm] 94 79 76 Blood Pressure Position Blood Pressure Position [Right Arm] Semi-fowlers Lying Semi-fowlers Pulse Oximetry 98 95 96 Oxygen Delivery Method Room Air Room Air Room Air Sepsis Recent Fever Within 48 Hours Sepsis New/Unexplained Change in Mental Status Sepsis Action Taken by Nursing 07/29/24 02:12 07/29/24 03:00 Temperature Temperature Source Pulse Rate 57 L Pulse Rate [Right Finger] 58 L Pulse Rhythm Pulse Rhythm [Right Finger] Regular Pulse Strength Pulse Strength [Right Finger] Normal Respiratory Rate 18 Respiratory Effort / Characteristics Non-Labored Spontaneous Respiratory Depth Normal Respiratory Pattern Regular Blood Pressure Blood Pressure [Right Arm] 130/66 Blood Pressure Mean Blood Pressure Mean [Right Arm] 87 Blood Pressure Position Blood Pressure Position [Right Arm] Semi-fowlers Pulse Oximetry 96 Oxygen Delivery Method Room Air Sepsis Recent Fever Within 48 Hours Sepsis New/Unexplained Change in Mental Status Sepsis Action Taken by Nursing Laboratory Data Attestation: I reviewed the patient's lab results. 07/28/24 22:28 07/28/24 22:28 Lab Results 07/28/24 07/28/24 07/28/24 Range/Units 22:28 23:00 23:12 WBC 8.28 (4.8-10.8) K/ul RBC 3.75 L (4.70-6.10) M/uL Hgb 11.8 L (14.0-18.0) g/dl Hct 35.3 L (42.0-52.0) % MCV 94.1 (80.0-100.0) fL MCH 31.5 (25.0-34.0) pg MCHC 33.4 (32.0-36.0) g/dL RDW Std Deviation 44.7 (36.4-46.3) fL RDW Coeff of Mehnaz 12.9 (11.5-14.5) % Plt Count 149 (130-400) K/uL MPV 11.4 (9.4-12.4) fL Immature Gran % (Auto) 0.5 % Neut % (Auto) 53.8 % Lymph % (Auto) 28.0 % [place] % (Auto) 9.5 % Eos % (Auto) 7.4 % Baso % (Auto) 0.8 % Neut # (Auto) 4.45 (1.40-6.50) K/uL Lymph # (Auto) 2.32 (1.20-3.40) K/uL [place] # (Auto) 0.79 H (0.11-0.59) K/uL Eos # (Auto) 0.61 H (0.00-0.50) K/uL Baso # (Auto) 0.07 (0.00-0.20) K/uL Immature Gran # (Auto) 0.04 (0.01-0.20) K/uL PT 10.9 (9.0-12.0) Seconds INR 1.0 (0.9-1.1) VBG pH 7.42 H (7.36-7.41) VBG pCO2 42 (38-50) mmHg VBG pO2 33 mmHg VBG HCO3 27 mmol/L VBG O2 Saturation < 60.0 % VBG Base Excess 2.4 mEq/L Sodium 139 (136-145) mmol/L Potassium 3.9 (3.5-5.1) mmol/L Chloride 104 (98-107) mmol/L Carbon Dioxide 27 (21-32) mmol/L Anion Gap 8 (3-11) BUN 45 H (6-23) mg/dl Creatinine 2.16 H (0.6-1.4) mg/dl Est Cr Clr Drug Dosing 25.1 ml/min eGFR 29.64 BUN/Creatinine Ratio 20.8 H (10-20) Glucose 105 H (70-99(Fasting)) mg/dl Lactate 0.7 (0.4-2.0) mmol/L Calcium 11.1 H (8.6-10.3) mg/dl Phosphorus 2.8 (2.5-4.9) mg/dl Magnesium 1.7 (1.7-2.4) mg/dl Total Bilirubin 0.5 (0.2-1.0) mg/dl AST 21 (13-39) U/L ALT 16 (7-52) U/L Alkaline Phosphatase 67 (34-104) U/L Total Creatine Kinase 60 (30-223) U/L Troponin I High Sens 46.7 H (0-20) pg/ml Total Protein 6.2 (6.0-8.3) gm/dl Albumin 3.9 (3.4-5.0) gm/dl Globulin 2.3 L (2.5-4.0) gm/dl Albumin/Globulin Ratio 1.7 (0.9-2) Lipase 73 (11-82) U/L Procalcitonin 0.12 (0-0.5) ng/ml TSH 1.173 (0.300-4.500) uIu/ml Random Cortisol 19.30 mcg/dl Urine Color Urine Appearance (Clear) Urine pH (4.5-7.5) Ur Specific [place] (1.000-1.030) Urine Protein (Negative) Urine Glucose (UA) (Negative) Urine Ketones (Negative) Urine Blood (Negative) Urine Nitrite (Negative) Urine Bilirubin (Negative) Urine Urobilinogen (Negative) Ur Leukocyte Esterase (Negative) Urine WBC (Auto) (0-5) /hpf Urine RBC (Auto) (0-2) /hpf U Hyaline Cast (Auto) (0-2) /lpf U Epithel Cells (Auto) (0-2) /hpf Urine Bacteria (Auto) (None Seen) Hyaline Casts (None Presnt) /lpf Adenovirus (PCR) Not Detected (NotDetected) B. pertussis DNA (PCR) Not Detected (NotDetected) B.parapertussis DNA PCR Not Detected (NotDetected) C. pneumoniae DNA (PCR) Not Detected (NotDetected) Coronavirus OC43 (PCR) Not Detected (NotDetected) Coronavirus HKU1 (PCR) Not Detected (NotDetected) Coronavirus 229E (PCR) Not Detected (NotDetected) SARS-CoV-2 (PCR) Not Detected (NotDetected) Coronavirus NL63 (PCR) Not Detected (NotDetected) Human Metapneumovir PCR Not Detected (NotDetected) Influenza Type A (PCR) Not Detected (NotDetected) Influenza Type B (PCR) Not Detected (NotDetected) M. pneumoniae (PCR) Not Detected (NotDetected) Parainfluenza 1 (PCR) Not Detected (NotDetected) Parainfluenza 2 (PCR) Not Detected (NotDetected) Parainfluenza 3 (PCR) Not Detected (NotDetected) Parainfluenza 4 (PCR) Not Detected (NotDetected) RSV (PCR) Not Detected (NotDetected) Entero/Rhino (PCR) Not Detected (NotDetected) 07/29/24 07/29/24 Range/Units 00:48 01:09 WBC (4.8-10.8) K/ul RBC (4.70-6.10) M/uL Hgb (14.0-18.0) g/dl Hct (42.0-52.0) % MCV (80.0-100.0) fL MCH (25.0-34.0) pg MCHC (32.0-36.0) g/dL RDW Std Deviation (36.4-46.3) fL RDW Coeff of Mehnaz (11.5-14.5) % Plt Count (130-400) K/uL MPV (9.4-12.4) fL Immature Gran % (Auto) % Neut % (Auto) % Lymph % (Auto) % [place] % (Auto) % Eos % (Auto) % Baso % (Auto) % Neut # (Auto) (1.40-6.50) K/uL Lymph # (Auto) (1.20-3.40) K/uL [place] # (Auto) (0.11-0.59) K/uL Eos # (Auto) (0.00-0.50) K/uL Baso # (Auto) (0.00-0.20) K/uL Immature Gran # (Auto) (0.01-0.20) K/uL PT (9.0-12.0) Seconds INR (0.9-1.1) VBG pH (7.36-7.41) VBG pCO2 (38-50) mmHg VBG pO2 mmHg VBG HCO3 mmol/L VBG O2 Saturation % VBG Base Excess mEq/L Sodium (136-145) mmol/L Potassium (3.5-5.1) mmol/L Chloride (98-107) mmol/L Carbon Dioxide (21-32) mmol/L Anion Gap (3-11) BUN (6-23) mg/dl Creatinine (0.6-1.4) mg/dl Est Cr Clr Drug Dosing ml/min eGFR BUN/Creatinine Ratio (10-20) Glucose (70-99(Fasting)) mg/dl Lactate (0.4-2.0) mmol/L Calcium (8.6-10.3) mg/dl Phosphorus (2.5-4.9) mg/dl Magnesium (1.7-2.4) mg/dl Total Bilirubin (0.2-1.0) mg/dl AST (13-39) U/L ALT (7-52) U/L Alkaline Phosphatase (34-104) U/L Total Creatine Kinase 53 (30-223) U/L Troponin I High Sens 43.1 H (0-20) pg/ml Total Protein (6.0-8.3) gm/dl Albumin (3.4-5.0) gm/dl Globulin (2.5-4.0) gm/dl Albumin/Globulin Ratio (0.9-2) Lipase (11-82) U/L Procalcitonin (0-0.5) ng/ml TSH (0.300-4.500) uIu/ml Random Cortisol mcg/dl Urine Color Yellow Urine Appearance Clear (Clear) Urine pH 5.5 (4.5-7.5) Ur Specific [place] 1.013 (1.000-1.030) Urine Protein Negative (Negative) Urine Glucose (UA) Negative (Negative) Urine Ketones Trace H (Negative) Urine Blood Negative (Negative) Urine Nitrite Negative (Negative) Urine Bilirubin Negative (Negative) Urine Urobilinogen Negative (Negative) Ur Leukocyte Esterase Trace H (Negative) Urine WBC (Auto) 0-5 (0-5) /hpf Urine RBC (Auto) 0-2 (0-2) /hpf U Hyaline Cast (Auto) 6-10 H (0-2) /lpf U Epithel Cells (Auto) 0-2 (0-2) /hpf Urine Bacteria (Auto) None Seen (None Seen) Hyaline Casts Present A (None Presnt) /lpf Adenovirus (PCR) (NotDetected) B. pertussis DNA (PCR) (NotDetected) B.parapertussis DNA PCR (NotDetected) C. pneumoniae DNA (PCR) (NotDetected) Coronavirus OC43 (PCR) (NotDetected) Coronavirus HKU1 (PCR) (NotDetected) Coronavirus 229E (PCR) (NotDetected) SARS-CoV-2 (PCR) (NotDetected) Coronavirus NL63 (PCR) (NotDetected) Human Metapneumovir PCR (NotDetected) Influenza Type A (PCR) (NotDetected) Influenza Type B (PCR) (NotDetected) M. pneumoniae (PCR) (NotDetected) Parainfluenza 1 (PCR) (NotDetected) Parainfluenza 2 (PCR) (NotDetected) Parainfluenza 3 (PCR) (NotDetected) Parainfluenza 4 (PCR) (NotDetected) RSV (PCR) (NotDetected) Entero/Rhino (PCR) (NotDetected) Administered Medications Sodium Chloride (Nss) 1,000 mls @ 200 mls/hr IV .Q5H STA Stop: 07/29/24 06:41 Last Admin: 07/29/24 01:49 Dose: 200 mls/hr Documented By: IDD Discontinued Medications Hydrocortisone Sodium Succinate (Hydrocortisone Sod Succinate 100 Mg/2 Ml Vial) 100 mg IV NOW STA Stop: 07/28/24 22:50 Last Admin: 07/28/24 22:59 Dose: 100 mg Documented By: SHB Sodium Chloride (Nss) 1,000 mls @ 999 mls/hr IV .Q1H1M ONE Stop: 07/28/24 23:47 Last Infusion: 07/29/24 00:00 Dose: Infused Documented By: Admin: 07/28/24 22:54 Dose: 999 mls/hr Documented By: ROSS Magnesium Sulfate/Dextrose (Magnesium Sulfate / D5w) 1 gm in 100 mls @ 50 mls/hr IV ONE STA Stop: 07/29/24 02:51 Last Admin: 07/29/24 01:49 Dose: 50 mls/hr Documented By: MARTHA Acetaminophen (Ofirmev) 1,000 mg in 100 mls @ 400 mls/hr IV NOW STA Stop: 07/29/24 01:08 Last Infusion: 07/29/24 01:27 Dose: Infused Documented By: Admin: 07/29/24 01:12 Dose: 400 mls/hr Documented By: MARTHA Lidocaine (Lidocaine 5% 1 Patch) 1 patch TD NOW ONE Stop: 07/29/24 02:01 Last Admin: 07/29/24 02:57 Dose: Not Given Documented By: MARTHA Loratadine (Loratadine 10 Mg Tab) 10 mg PO NOW ONE Stop: 07/29/24 01:55 Last Admin: 07/29/24 02:57 Dose: 10 mg Documented By: [facility] Imaging Data Radiologist's Impression: Chest X-Ray 07/28/24 22:47 Exam(s): XR CXR 1 VIEW EXAM: XR Chest, 1 View CLINICAL HISTORY: Reason for exam: Chest pain, nonspecific. TECHNIQUE: Frontal view of the chest. COMPARISON: July 23, 2034 FINDINGS: Lungs: Unremarkable. No consolidation. Pleural space: Unremarkable. No pneumothorax. Heart: Unremarkable. No cardiomegaly. Mediastinum: Unremarkable. Normal mediastinal contour. Bones/joints: Unremarkable. No acute fracture. Soft tissues: Right chest subcutaneous emphysema. This is compared to prior exam. Right venous left diffuse soft tissue swelling in the right chest subcutaneous soft tissue. IMPRESSION: No acute pulmonary pathology Right chest wall soft tissue swelling with subcutaneous emphysema. Direct visual inspection is recommended for further evaluation. Electronically signed by: Jef Medrano MD 07/29/24 00:26 AM Abdomen/Pelvis CT 07/28/24 23:23 EXAM: CT abd pelvis wo con CLINICAL HISTORY: Patient and visitor reports pt began having "neuro issues" that started tonight. pts reports convulsions and has been speaking and acting differently at irratic times. Pt recently had a heart attack on 06/30. Reports falling yesterday, denies LOC. Difficulty walking noted into triage and having intermittant jerking while being triaged. Pt reporting muscle weakness and ambulation difficulty. PW/GS TECHNIQUE: Contiguous axial images were obtained from the level of the diaphragm to the pubic symphysis without intravenous or oral contrast. Coronal and sagittal reconstructions were likewise performed and indicated to increase the sensitivity for detecting clinically relevant pathology. CT scan was performed according to ALARA (as low as reasonable achievable). 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 Evaluation of the abdominal and pelvic visceral organs is limited without intravenous contrast. The unenhanced liver, spleen, pancreas, and adrenal glands are grossly unremarkable. Multiple variable sized well defined hypodense lesions are noted involving both the lobes of liver - suggest hepatic cyst. The gallbladder is removed. Right kidney appears enlarged in size and shows multiple variable sized cortical cyst completely effacing right renal parenchyma. Few of the cysts shows curvilinear wall calcification. Few simple cortical cysts are also noted involving left kidney. Left kidney shows non-obstructive calculus of size 4 mm in upper calyx. Left kidney is normal in size and attenuation without obvious calcification. There is no hydronephrosis or perinephric stranding. The ureters are normal in caliber. No adenopathy or fluid collections are seen. No evidence of focal or diffuse bowel wall thickening or evidence of bowel obstruction is seen. No inflamed appendix is visualized in the right lower quadrant. The aorta is normal in caliber. The urinary bladder is normal in contour. Pelvic viscera are grossly unremarkable. No aggressive appearing osseous lesions are identified. IMPRESSION: 1. Multicystic kidney disease ( more on right side) -static. 2. Left kidney shows non-obstructive calculus of size 4 mm in upper calyx -new finding. 3. Multiple hepatic cysts-static. 4. No other new interval changes since prior study. Electronically signed by Fran Cummins 07-29-2024 01:[address] 07/28/24 23:23 EXAM: CT cervical spine wo con CLINICAL HISTORY: Patient and visitor reports pt began having "neuro issues" that started tonight. pts reports convulsions and has been speaking and acting differently at irratic times. Pt recently had a heart attack on 06/30. Reports falling yesterday, denies LOC. Difficulty walking noted into triage and having intermittant jerking while being triaged. Pt reporting muscle weakness and ambulation difficulty. PW/GS TECHNIQUE: Computed tomography of the cervical spine performed without intravenous contrast. Contiguous axial images were obtained from the skull base to T2, with sagittal and coronal reformatted images reconstructed from the axial data. CT scan was performed according to ALARA (as low as reasonable achievable). COMPARISON: 21 Jan 2024. FINDINGS: The normal cervical lordotic curvature is lost due to muscle spasm. Degenerative changes involving cervical spine in the form of multilevel marginal osteophytes, disc space reduction and facetal arthrosis Mild retrolisthesis of C5 over C6 vertebra. Posterior uncovertebral arthrosis is noted at C5-C6 and C6-C7 levels, which indenting ventral thecal sac and causes bilateral neuroforaminal narrowing. Cervical vertebral bodies are normal in height and alignment, with no evidence of fracture or subluxation. Lateral masses of C1 are symmetrical, and the dens is intact. Prevertebral soft tissues are not widened. The remaining suprahyoid and infrahyoid soft tissues in the neck are unremarkable. Thyroid gland is diffusely enlarged with few small calcified nodules. Suggested ultrasound correlation. IMPRESSION: 1.No acute fracture or subluxation in the cervical spine. 2.Cervical spondylosis. 3.No new interval changes since prior study. Electronically signed by Fran Cummins 07-29-2024 01:[address] 07/28/24 23:23 EXAM: CT chest diagnostic wo con CLINICAL HISTORY: Patient and visitor reports pt began having "neuro issues" that started tonight. pts reports convulsions and has been speaking and acting differently at irratic times. Pt recently had a heart attack on 06/30. Reports falling yesterday, denies LOC. Difficulty walking noted into triage and having intermittant jerking while being triaged. Pt reporting muscle weakness and ambulation difficulty. PW/GS TECHNIQUE: Contiguous axial images were obtained from the neck base through the upper abdomen without contrast. In addition, sagittal and coronal reconstructions were performed to potentially increase the sensitivity for the detection of disease. CT scan was performed according to ALARA (as low as reasonably achievable). COMPARISON: None. FINDINGS: Positional ground glass densities with subtle interstitial thickening and subpleural subsegmental atelectasis are seen involving the dependent portions of bilateral lower lobes. Subtle ground-glass densities with interstitial thickening and subpleural subsegmental atelectasis are noted involving inferior lingula and right middle lobe. The central airways are patent. There are no pleural effusions. No pneumothorax is seen. No pericardial effusion is identified. Evaluation of the mediastinum and serge is limited due to the lack of intravenous contrast. No axillary or mediastinal adenopathy is identified. Both lobes of thyroid gland appear bulky and show hypodense as well as calcified nodules within. Cardiomegaly is noted. Atherosclerotic calcifications are noted involving the aortic root, aorta and its branches, coronary arteries. Multiple cysts are noted in the visualized portion of the right renal fossa. No aggressive appearing osseous lesions are identified. IMPRESSION: 1. No significant/acute lung parenchymal abnormality detected. 2. Positional ground glass densities with subtle interstitial thickening and subpleural subsegmental atelectasis are seen involving the dependent portions of bilateral lung parenchyma. 3. Cardiomegaly. 4. Both lobes of thyroid gland appear bulky and show hypodense as well as calcified nodules within. Ultrasound correlation is advised. Electronically signed by Fran Cummins 07-29-2024 01:[address] 07/28/24 23:23 EXAM: CT head/brain wo con CLINICAL HISTORY: Patient and visitor reports pt began having "neuro issues" that started tonight. pts reports convulsions and has been speaking and acting differently at irratic times. Pt recently had a heart attack on 06/30. Reports falling yesterday, denies LOC. Difficulty walking noted into triage and having intermittant jerking while being triaged. Pt reporting muscle weakness and ambulation difficulty. PW/GS TECHNIQUE: Multiple axial images are obtained from the skull base to the vertex without contrast. CT scan was performed according to ALARA (as low as reasonably achievable). COMPARISON: 07 July 2024. FINDINGS: There is cerebral atrophy. The carlos-white matter differentiation is preserved. There are scattered periventricular hypodensities as can be seen with chronic microvascular ischemic changes. No evidence of space occupying lesion, hemorrhage, edema, mass effect, midline shift, extra axial collection, or hydrocephalus is noted. Basal cisterns are symmetric and normal in size and configuration. Visualized paranasal sinuses and mastoid air cells are well aerated. Orbital contents are within normal limits. Bony structures are intact. Rest of the findings are unchanged compared to the previous CT scan. IMPRESSION: 1. No evidence of acute intracranial abnormality is demonstrated. 2. Chronic microvascular ischemic changes. 3. Cerebral atrophy. No significant interval new findings noted as compared to the previous CT scan. MRI of the brain is advised for better evaluation if clinically indicated. Electronically signed by Fran Cummins 07-29-2024 12:57 AM Discharge Plan Visit Data Chief Complaint: Illness Stated Complaint: CONVULSING,DELIRIOUS,UNBALANCE ED Provider: Giovanni Juarez Discharge Problem: Adrenal insufficiency, Panhypopituitarism, Acute on chronic renal insufficiency, Hypercalcemia Forms Stand Alone Forms: [place] Prescriptions Prescriptions: No Action aspirin 81 mg tablet,delayed release (DR/EC) 81 mg PO QAM Qty: 30 0RF calcium carbonate-vitamin D3 [Calcium 600 + D(3)] 600 mg(1,500mg) -200 unit tablet 1 tab PO BID Qty: 30 0RF magnesium 250 mg tablet 250 mg PO QAM Qty: 30 0RF sertraline [Zoloft] 100 mg tablet 200 mg PO QAM dicyclomine 20 mg tablet 20 mg PO TID ascorbic acid (vitamin C) 1,000 mg tablet 500 mg PO QAM ferrous sulfate [Feosol] 325 mg (65 mg iron) tablet 325 mg PO QAM PRN (Reason: anemia) gabapentin 300 mg capsule 300 mg PO BID dutasteride-tamsulosin [Yancy] 0.5-0.4 mg capsule, ER multiphase 24 hr 2 cap PO HS gabapentin 100 mg capsule 100 mg PO HS Rx Instructions: takes 300 am/pm; extra 100mg in PM trazodone 150 mg tablet 150 mg PO HS hydroxyzine HCl 10 mg Tablet 10 mg PO Q6H PRN (Reason: anxiety) Qty: 30 0RF multivitamin [Multiple Vitamins] Tablet 1 tab PO QAM omeprazole 20 mg capsule,delayed release(DR/EC) 20 mg PO DAILYBB doxazosin 4 mg tablet 8 mg PO HS bumetanide 1 mg tablet 1 mg PO QAM ondansetron 4 mg tablet,disintegrating 4 mg PO Q6H PRN (Reason: nausea and vomiting) Qty: 14 0RF hydrocortisone 5 mg tablet 20 mg PO DAILY methimazole 5 mg tablet 5 mg PO DAILY hydrocortisone 5 mg tablet 10 mg PO HS sucralfate 1 gram Tablet 1 g PO AC potassium chloride 20 mEq tablet extended release 20 meq PO DAILY atorvastatin 40 mg Tablet 40 mg PO QAM 30 Days Qty: 30 2RF metoprolol succinate 50 mg Tablet Extended Release 24 Hr 50 mg PO BID 30 Days Qty: 60 2RF lisinopril 20 mg Tablet 20 mg PO QAM 30 Days Qty: 30 2RF isosorbide mononitrate 30 mg Tablet Extended Release 24 Hr 30 mg PO QAM 30 Days Qty: 30 2RF Brilinta 90 mg Tablet 90 mg PO BID 30 Days Qty: 60 2RF buspirone 5 mg tablet 5 mg PO TID nitroglycerin 0.4 mg tablet, sublingual 0.4 mg sublingual DIRECTED Qty: 14 2RF Rx Instructions: use 1 tab under the tongue for chest pain as needed every 5 minutes--max of 3 doses Referrals Referrals: Shalom Lieberman MD [Primary Care Provider] -
[2024-07-28] MEDS: SODIUM CHLORIDE 0.9% 1,000 ML IV ONE (22:54)
[2024-07-28 22:59] LABS: Basophils # (auto) 0.07 K/uL (0.00-0.20); Basophils % (auto) 0.8 %; Eosinophils # (auto) 0.61 K/uL (0.00-0.50); Eosinophils % (auto) 7.4 %; Hematocrit (blood only) 35.3 % (42.0-52.0); Hemoglobin 11.8 g/dl (14.0-18.0); Immature Granulocytes # (auto) 0.04 K/uL (0.01-0.20); Immature Granulocytes % (auto) 0.5 %; Lymphocytes # (auto) 2.32 K/uL (1.20-3.40); Mean Corpuscular Hemoglobin 31.5 pg (25.0-34.0); Mean Corpuscular Hgb Conc 33.4 g/dL (32.0-36.0); Mean Corpuscular Volume 94.1 fL (80.0-100.0); Mean Platelet Volume 11.4 fL (9.4-12.4); Monocytes # (auto) 0.79 K/uL (0.11-0.59); Monocytes % (auto) 9.5 %; Neutrophils # (auto) 4.45 K/uL (1.40-6.50); Neutrophils % (auto) 53.8 %; Platelet Count 149 K/uL (130-400); RDW Coefficient of Variation 12.9 % (11.5-14.5); RDW Standard Deviation 44.7 fL (36.4-46.3); Red Blood Count 3.75 M/uL (4.70-6.10); White Blood Count 8.28 K/ul (4.8-10.8)
[2024-07-28] MEDS: HYDROCORTISONE SOD SUCCINATE 100 MG/2 ML VIAL IV STA (22:59)
[2024-07-28 23:17] LABS: Albumin Globulin Ratio 1.7 (0.9-2); Albumin Level 3.9 gm/dl (3.4-5.0); BUN Creatinine Ratio 20.8 (10-20); Bilirubin,Total 0.5 mg/dl (0.2-1.0); Calcium 11.1 mg/dl (8.6-10.3); Creatinine Clr Calc Pharmacy 25.1 ml/min; Globulin 2.3 gm/dl (2.5-4.0); Magnesium 1.7 mg/dl (1.7-2.4); Phosphorus 2.8 mg/dl (2.5-4.9); Potassium 3.9 mmol/L (3.5-5.1); Total Protein 6.2 gm/dl (6.0-8.3)
[2024-07-28 23:19] LABS: Base Excess VBG 2.4 mEq/L; HCO3 VBG 27 mmol/L; Oxygen Saturation VBG < 60.0 %; PCO2 VBG 42 mmHg (38-50); PO2 VBG 33 mmHg; pH VBG 7.42 (7.36-7.41)
[2024-07-28 23:23] LABS: Troponin I High Sensitivity 46.7 pg/ml (0-20)
[2024-07-28 23:27] LABS: Prothrombin Time 10.9 Seconds (9.0-12.0)
[2024-07-28 23:33] LABS: Thyroid Stimulating Hormone 1.173 uIu/ml (0.300-4.500)
[2024-07-28 23:57] LABS: Adenovirus PCR Not Detected (NotDetected); Bordetella parapertussis PCR Not Detected (NotDetected); Bordetella pertussis PCR Not Detected (NotDetected); Chlamydia pneumoniae PCR Not Detected (NotDetected); Coronavirus 229E PCR Not Detected (NotDetected); Coronavirus CoV-2 (COVID19)PCR Not Detected (NotDetected); Coronavirus HKU1 PCR Not Detected (NotDetected); Coronavirus NL63 PCR Not Detected (NotDetected); Coronavirus OC43PCR Not Detected (NotDetected); Human Metapneumovirus PCR Not Detected (NotDetected); Influenza A PCR Not Detected (NotDetected); Influenza B PCR Not Detected (NotDetected); Mycoplasma pneumoniae PCR Not Detected (NotDetected); Parainfluenza Virus 1 PCR Not Detected (NotDetected); Parainfluenza Virus 2 PCR Not Detected (NotDetected); Parainfluenza Virus 3 PCR Not Detected (NotDetected); Parainfluenza Virus 4 PCR Not Detected (NotDetected); Respiratory Syncytial VirusPCR Not Detected (NotDetected); Rhinovirus/Enterovirus PCR Not Detected (NotDetected)
--- NOTE | 2024-07-29 00:27 | XRay Report ---
Exam(s): XR CXR 1 VIEW EXAM: XR Chest, 1 View CLINICAL HISTORY: Reason for exam: Chest pain, nonspecific. TECHNIQUE: Frontal view of the chest. COMPARISON: July 23, 2034 FINDINGS: Lungs: Unremarkable. No consolidation. Pleural space: Unremarkable. No pneumothorax. Heart: Unremarkable. No cardiomegaly. Mediastinum: Unremarkable. Normal mediastinal contour. Bones/joints: Unremarkable. No acute fracture. Soft tissues: Right chest subcutaneous emphysema. This is compared to prior exam. Right venous left diffuse soft tissue swelling in the right chest subcutaneous soft tissue. IMPRESSION: No acute pulmonary pathology Right chest wall soft tissue swelling with subcutaneous emphysema. Direct visual inspection is recommended for further evaluation. Electronically signed by: Jef Medrano MD 07/29/24 00:26 AM
--- NOTE | 2024-07-29 00:57 | CT Scan Report ---
EXAM: CT head/brain wo con CLINICAL HISTORY: Patient and visitor reports pt began having "neuro issues" that started tonight. pts reports convulsions and has been speaking and acting differently at irratic times. Pt recently had a heart attack on 06/30. Reports falling yesterday, denies LOC. Difficulty walking noted into triage and having intermittant jerking while being triaged. Pt reporting muscle weakness and ambulation difficulty. PW/GS TECHNIQUE: Multiple axial images are obtained from the skull base to the vertex without contrast. CT scan was performed according to ALARA (as low as reasonably achievable). COMPARISON: 07 July 2024. FINDINGS: There is cerebral atrophy. The carlos-white matter differentiation is preserved. There are scattered periventricular hypodensities as can be seen with chronic microvascular ischemic changes. No evidence of space occupying lesion, hemorrhage, edema, mass effect, midline shift, extra axial collection, or hydrocephalus is noted. Basal cisterns are symmetric and normal in size and configuration. Visualized paranasal sinuses and mastoid air cells are well aerated. Orbital contents are within normal limits. Bony structures are intact. Rest of the findings are unchanged compared to the previous CT scan. IMPRESSION: 1. No evidence of acute intracranial abnormality is demonstrated. 2. Chronic microvascular ischemic changes. 3. Cerebral atrophy. No significant interval new findings noted as compared to the previous CT scan. MRI of the brain is advised for better evaluation if clinically indicated. Electronically signed by Fran Cummins 07-29-2024 12:57 AM
--- NOTE | 2024-07-29 01:08 | CT Scan Report ---
EXAM: CT chest diagnostic wo con CLINICAL HISTORY: Patient and visitor reports pt began having "neuro issues" that started tonight. pts reports convulsions and has been speaking and acting differently at irratic times. Pt recently had a heart attack on 06/30. Reports falling yesterday, denies LOC. Difficulty walking noted into triage and having intermittant jerking while being triaged. Pt reporting muscle weakness and ambulation difficulty. PW/GS TECHNIQUE: Contiguous axial images were obtained from the neck base through the upper abdomen without contrast. In addition, sagittal and coronal reconstructions were performed to potentially increase the sensitivity for the detection of disease. CT scan was performed according to ALARA (as low as reasonably achievable). COMPARISON: None. FINDINGS: Positional ground glass densities with subtle interstitial thickening and subpleural subsegmental atelectasis are seen involving the dependent portions of bilateral lower lobes. Subtle ground-glass densities with interstitial thickening and subpleural subsegmental atelectasis are noted involving inferior lingula and right middle lobe. The central airways are patent. There are no pleural effusions. No pneumothorax is seen. No pericardial effusion is identified. Evaluation of the mediastinum and serge is limited due to the lack of intravenous contrast. No axillary or mediastinal adenopathy is identified. Both lobes of thyroid gland appear bulky and show hypodense as well as calcified nodules within. Cardiomegaly is noted. Atherosclerotic calcifications are noted involving the aortic root, aorta and its branches, coronary arteries. Multiple cysts are noted in the visualized portion of the right renal fossa. No aggressive appearing osseous lesions are identified. IMPRESSION: 1. No significant/acute lung parenchymal abnormality detected. 2. Positional ground glass densities with subtle interstitial thickening and subpleural subsegmental atelectasis are seen involving the dependent portions of bilateral lung parenchyma. 3. Cardiomegaly. 4. Both lobes of thyroid gland appear bulky and show hypodense as well as calcified nodules within. Ultrasound correlation is advised. Electronically signed by Fran Cummins 07-29-2024 01:07 AM
[2024-07-29] MEDS: ACETAMINOPHEN 1,000 MG/100 ML VIAL IV STA ×2 (01:12→21:36)
[2024-07-29 01:27] LABS: Troponin I High Sensitivity 43.1 pg/ml (0-20)
--- NOTE | 2024-07-29 01:28 | CT Scan Report ---
EXAM: CT cervical spine wo con CLINICAL HISTORY: Patient and visitor reports pt began having "neuro issues" that started tonight. pts reports convulsions and has been speaking and acting differently at irratic times. Pt recently had a heart attack on 06/30. Reports falling yesterday, denies LOC. Difficulty walking noted into triage and having intermittant jerking while being triaged. Pt reporting muscle weakness and ambulation difficulty. PW/GS TECHNIQUE: Computed tomography of the cervical spine performed without intravenous contrast. Contiguous axial images were obtained from the skull base to T2, with sagittal and coronal reformatted images reconstructed from the axial data. CT scan was performed according to ALARA (as low as reasonable achievable). COMPARISON: 21 Jan 2024. FINDINGS: The normal cervical lordotic curvature is lost due to muscle spasm. Degenerative changes involving cervical spine in the form of multilevel marginal osteophytes, disc space reduction and facetal arthrosis Mild retrolisthesis of C5 over C6 vertebra. Posterior uncovertebral arthrosis is noted at C5-C6 and C6-C7 levels, which indenting ventral thecal sac and causes bilateral neuroforaminal narrowing. Cervical vertebral bodies are normal in height and alignment, with no evidence of fracture or subluxation. Lateral masses of C1 are symmetrical, and the dens is intact. Prevertebral soft tissues are not widened. The remaining suprahyoid and infrahyoid soft tissues in the neck are unremarkable. Thyroid gland is diffusely enlarged with few small calcified nodules. Suggested ultrasound correlation. IMPRESSION: 1.No acute fracture or subluxation in the cervical spine. 2.Cervical spondylosis. 3.No new interval changes since prior study. Electronically signed by Fran Cummins 07-29-2024 01:28 AM
--- NOTE | 2024-07-29 01:39 | CT Scan Report ---
EXAM: CT abd pelvis wo con CLINICAL HISTORY: Patient and visitor reports pt began having "neuro issues" that started tonight. pts reports convulsions and has been speaking and acting differently at irratic times. Pt recently had a heart attack on 06/30. Reports falling yesterday, denies LOC. Difficulty walking noted into triage and having intermittant jerking while being triaged. Pt reporting muscle weakness and ambulation difficulty. PW/GS TECHNIQUE: Contiguous axial images were obtained from the level of the diaphragm to the pubic symphysis without intravenous or oral contrast. Coronal and sagittal reconstructions were likewise performed and indicated to increase the sensitivity for detecting clinically relevant pathology. CT scan was performed according to ALARA (as low as reasonable achievable). COMPARISON: 01/04/2022 11:20:34 [employer]LE [employer]CHO[employer] PRINCIPAL FINDINGS: The visualized lung bases are clear. Evaluation of the abdominal and pelvic visceral organs is limited without intravenous contrast. The unenhanced liver, spleen, pancreas, and adrenal glands are grossly unremarkable. Multiple variable sized well defined hypodense lesions are noted involving both the lobes of liver - suggest hepatic cyst. The gallbladder is removed. Right kidney appears enlarged in size and shows multiple variable sized cortical cyst completely effacing right renal parenchyma. Few of the cysts shows curvilinear wall calcification. Few simple cortical cysts are also noted involving left kidney. Left kidney shows non-obstructive calculus of size 4 mm in upper calyx. Left kidney is normal in size and attenuation without obvious calcification. There is no hydronephrosis or perinephric stranding. The ureters are normal in caliber. No adenopathy or fluid collections are seen. No evidence of focal or diffuse bowel wall thickening or evidence of bowel obstruction is seen. No inflamed appendix is visualized in the right lower quadrant. The aorta is normal in caliber. The urinary bladder is normal in contour. Pelvic viscera are grossly unremarkable. No aggressive appearing osseous lesions are identified. IMPRESSION: 1. Multicystic kidney disease ( more on right side) -static. 2. Left kidney shows non-obstructive calculus of size 4 mm in upper calyx -new finding. 3. Multiple hepatic cysts-static. 4. No other new interval changes since prior study. Electronically signed by Fran Cummins 07-29-2024 01:38 AM
[2024-07-29 01:42] LABS: Appearance Urine Clear (Clear); Bacteria Urine Automated None Seen (None Seen); Bilirubin Urine Negative (Negative); Blood Urine Negative (Negative); Color Urine Yellow; Epithelial Cell Urine Auto 0-2 /hpf (0-2); Glucose Urine UA Negative (Negative); Hyaline Casts Urine Present /lpf (None Presnt); Ketones Urine Trace (Negative); Leukocyte Esterase Urine Trace (Negative); Nitrite Urine Negative (Negative); Protein Urine Negative (Negative); RBC Urine Automated 0-2 /hpf (0-2); Specific Gravity Urine 1.013 (1.000-1.030); Urobilinogen Urine Negative (Negative); WBC Urine Automated 0-5 /hpf (0-5); pH Urine 5.5 (4.5-7.5)
[2024-07-29] MEDS: SODIUM CHLORIDE 0.9% 1,000 ML IV STA (01:49)
[2024-07-29] MEDS: MAGNESIUM SULFATE / D5W 1 GM/100 ML BAG IV STA (01:49)
--- NOTE | 2024-07-29 01:50 | History & Physical Report ---
Date of Service July 29, 2024 Assessment & Plan (1) Hypotension: Plan: Secondary to hypovolemia secondary to diarrhea illness rule out C. difficile Possible adrenal insufficiency given chronic steroid Rx, history panhypopituitarism, (growth hormone deficiency, ACTH deficiency, central hypogonadism, toxic multinodular goiter as per records) ARF on CKD secondary to above Troponin elevation in the setting of kidney dysfunction Myoclonic jerks possibly gabapentin toxicity given kidney dysfunction hx CAD status post recent stent placement hyperlipidemia on statin Rx hx of pituitary adenoma surgery chronic anemia, hemoglobin slightly lower than baseline, patient with cutaneous bruising. hx melanoma as per records anxiety/mood disorder, patient anxious, recently started on buspirone history of DVT as per records chronic back pain secondary to LSS, uncontrolled since home Vicodin stopped Prediabetes, hemoglobin A1c of 5.8 last month Possible deconditioning past tobacco abuse PCU Monitor creatinine response to IVF Hold home diuretic and lisinopril until creatinine back to baseline Hold other home BP meds for now. Decadron if with recurrent hypotension given concern for adrenal insufficiency Nephrology consult if without improvement (Patient known to [facility] Monitor myoclonic jerks while holding gabapentin. Resume gabapentin at reduced dose given chronic kidney dysfunction once myoclonic jerks resolved. Lidoderm patch for chronic back pain. Antihistaminic prior to application given pruritus side effects as per patient account. Neurology consult if with persistent myoclonic jerks. PT OT eval once medically stable DVT prophylaxis. SCDs re: cutaneous bruising Full code Patient requesting updates providers. Ms. Silvana Wilkerson, contact #[phone]. Text document was generated using [employer] voice recognition software. It may contain grammatical or spelling errors. Kindly contact undersigned for clarification of any documentation item in question. History of Present Illness Chief Complaint: Involuntary jerks, weakness Primary Care Provider: Shalom Lieberman MD History obtained from patient and records. Medical history significant for CAD status post recent stent placement, hyperte nsion, hyperlipidemia, history of pituitary adenoma surgery, panhypopituitarism (growth hormone deficiency, ACTH deficiency, central hypogonadism, toxic multinodular goiter as per records), hyperprolactinemia as per records, chronic steroid Rx, CRI (baseline creatinine 1.4), chronic anemia (baseline hemoglobin 12-13), melanoma as per records BPH, anxiety/mood disorder, history of DVT as per records, chronic back pain secondary to LSS, past tobacco abuse. 3 admissions last month. 06/30-07/02 Patient admitted for NSTEMI status post PCI. 07/08-07/09 Patient admitted for confusion/delirium attributed to home Vicodin. Patient instructed to avoid Vicodin upon return home. 07/10-07/11 patient readmitted for chest pain. Patent stents on diagnostic cardiac catheterization. Patient returned to ER last week for chest pain attributed to anxiety. Patient has not been well since stent procedure last month. Fair appetite. Anxiety, denies depression. PCP started patient on buspirone for anxiety. Medication not working as well as per patient. Patient noted watery diarrhea symptoms yesterday with some abdominal discomfort. Denies black/bloody stools. Some skin bruising. Increasing generalized weakness. No headache, no chest pain, no SOB. Patient noted to have involuntary jerking. Patient sure that patient does not have access to Vicodin anymore. Patient brought to ER for evaluation. SBP 70s upon arrival at the ER. Medical History as above Surgical History : Pituitary tumor removal Family History : Breast cancer, heart disease Personal/Social history : Past tobacco abuse, no EtOH intake Allergies Allergy/AdvReac Type Severity Reaction Status Date / Time lidocaine [From Lidoderm] AdvReac Mild Itching Verified 07/29/24 00:53 Home Medications Medication Instructions Recorded Confirmed Type aspirin 81 mg tablet,delayed 81 mg PO QAM #30 tabs 02/23/19 07/29/24 Rx release calcium 600 mg (as 1 tab PO BID #30 tabs 02/23/19 07/29/24 Rx carbonate)-vitamin D3 5 mcg (200 unit) tablet (Calcium 600 + D(3)) magnesium 250 mg tablet 250 mg PO QAM #30 tabs 02/23/19 07/29/24 Rx multivitamin (Multiple Vitamins 1 tab PO QAM 05/27/19 07/29/24 History tablet) trazodone 150 mg tablet 150 mg PO HS 10/10/19 07/29/24 History hydroxyzine HCl 10 mg tablet 10 mg PO Q6H PRN anxiety #30 tabs 10/14/19 07/29/24 Rx ascorbic acid (vitamin C) 1,000 mg 500 mg PO QAM 03/18/20 07/29/24 History tablet ferrous sulfate 325 mg (65 mg 325 mg PO QAM PRN anemia 03/18/20 07/29/24 History iron) tablet (Feosol) dicyclomine 20 mg tablet 20 mg PO TID abdominal pain 11/02/21 07/29/24 History dutasteride 0.5 mg-tamsulosin ER 2 cap PO HS 11/02/21 07/29/24 History 0.4 mg capsule ext.release 24hr mphas (Yancy) gabapentin 300 mg capsule 300 mg PO BID 11/02/21 07/29/24 History bumetanide 1 mg tablet 1 mg PO QAM 01/04/22 07/29/24 History doxazosin 4 mg tablet 8 mg PO HS 01/04/22 07/29/24 History omeprazole 20 mg capsule,delayed 20 mg PO DAILYBB 01/04/22 07/29/24 History release ondansetron 4 mg disintegrating 4 mg PO Q6H PRN nausea and 01/04/22 07/29/24 Rx tablet vomiting #14 tabs gabapentin 100 mg capsule 100 mg PO HS 01/03/23 07/29/24 History sertraline 100 mg tablet (Zoloft) 200 mg PO QAM 01/03/23 07/29/24 History hydrocortisone 5 mg tablet 10 mg PO HS 06/30/24 07/29/24 History hydrocortisone 5 mg tablet 20 mg PO DAILY 06/30/24 07/29/24 History methimazole 5 mg tablet 5 mg PO DAILY 06/30/24 07/29/24 History potassium chloride 20 mEq 20 meq PO DAILY 06/30/24 07/29/24 History tablet,extended release sucralfate 1 gram tablet 1 g PO AC 06/30/24 07/29/24 History atorvastatin 40 mg tablet 40 mg PO QAM 30 days #30 tabs 07/02/24 07/29/24 Rx isosorbide mononitrate 30 mg 30 mg PO QAM 30 days #30 tabs 07/02/24 07/29/24 Rx tablet,extended release 24 hr lisinopril 20 mg tablet 20 mg PO QAM 30 days #30 tabs 07/02/24 07/29/24 Rx metoprolol succinate 50 mg 50 mg PO BID 30 days #60 tabs 07/02/24 07/29/24 Rx tablet,extended release 24 hr ticagrelor 90 mg tablet (Brilinta) 90 mg PO BID 30 days #60 tabs 07/02/24 07/29/24 Rx buspirone 5 mg tablet 5 mg PO TID 07/23/24 07/29/24 History nitroglycerin 0.4 mg sublingual 0.4 mg sublingual DIRECTED #14 07/23/24 07/29/24 Rx tablet tabs Past Med/Surg History Problem List (Updated 07/29/24 @ 06:49 by Yaya Oseguera MD) Hypotension Hypercalcemia (Acute) Acute on chronic renal insufficiency (Acute) Adrenal insufficiency (Acute) CAD (coronary atherosclerotic disease) (Acute) Anxiety (Acute) Precordial chest pain (Acute) CKD (chronic kidney disease) (Acute) Abnormal EKG (Acute) Chest pain (Acute) Acute non-ST elevation myocardial infarction (NSTEMI) (Acute) Elevated troponin ASCVD (arteriosclerotic cardiovascular disease) Abnormal EKG Prediabetes History of CAD (coronary artery disease) Acute on chronic kidney failure Altered mental status Delirium Anxiety (Acute) Ataxia (Acute) Dyslipidemia, goal LDL below 70 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 S/P right coronary artery (RCA) stent placement Non-sustained ventricular tachycardia (Acute) NSTEMI (non-ST elevated myocardial infarction) (Acute) ACS (acute coronary syndrome) STEMI (ST elevation myocardial infarction) Chest pain (Acute) Trochanteric bursitis of right hip Osteoarthritis of finger Strain of left knee Vitamin D deficiency Blind left eye History of pituitary adenoma MCL sprain of left knee Chronic kidney disease, stage III (moderate) Neck Pain Dyslipidemia Osteopenia Prostatic hypertrophy Chronic low back pain Anxiety Hypertension (Acute) ACTH deficiency (Chronic) Panhypopituitarism (Chronic) Anemia (Chronic) 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) Chronic cholecystitis (Chronic) Medical History Aspiration pneumonia Headache Muscle cramps at night HTN (hypertension) Acute renal failure superimposed on stage 3 chronic kidney disease Spasm of bowel Multiple renal cysts Deep vein thrombosis BPH (benign prostatic hyperplasia) IBS (irritable bowel syndrome) GERD (gastroesophageal reflux disease) Hyperthyroidism History of melanoma Hearing deficit Hypertension Hyperlipidemia Lumbar herniated disc HLD (hyperlipidemia) CKD (chronic kidney disease) Opioid dependence Surgical History Hx laparoscopic cholecystectomy (06/03/19) History of skin graft History of parotidectomy History of craniotomy Status post trigger finger release History of esophagogastroduodenoscopy (EGD) History of colonoscopy History of melanoma excision Family History Sister Family hx of colon cancer Father Tobacco use Coronary heart disease Mother Diverticulosis of intestine Sister Ovarian cancer Colon cancer Grandfather Cancer Aunt Cancer Uncle Cancer Grandmother (Maternal) Cancer Other No significant family history Social History Smoking Status: Former smoker Tobacco Type: Cigarettes Second Hand Exposure: No; Do You Dip or Chew Tobacco: No; Hx Alcohol Use: No Hx Substance Use: No Preferred Language: Malagasy Communication Ability: Effective Visual Impairment: No Limitations Laborer Demolition Required: No Beliefs That Will Affect Care: None Current Living Situation: Spouse Other Information That Helps Us Care for You: No Feels Safe at Home: Yes Safety Concerns: Feels Safe At This Time Assistive Devices: None Review of Systems Review of Systems: As per HPI, all other systems reviewed and negative Physical Exam Physical Exam: GENERAL: Pleasant, slightly uncomfortable, episodic myoclonic jerks, no respiratory distress SKIN: Pallor, warm, cutaneous bruising HEENT: Bespectacled, pale palpebral conjunctivae, no ptosis, dry buccal mucosa NECK : Supple, no tenderness CHEST : CTA, no tenderness HEART : RRR, no obvious murmurs ABDOMEN: no distention, nontender EXTREMITIES : No LE swelling/tenderness, no other conspicuous deformities noted NEUROLOGIC : Coherent, no facial asymmetry, episodic myoclonic jerks, no other gross focality Results & Data Results & Data Vital Signs (Past 12 Hours) Vital Signs Temp Pulse Pulse Resp BP BP Pulse Ox 07/29/24 00:00 64 18 144/70 H 98 07/28/24 22:57 60 17 97 07/28/24 22:43 107/50 L 07/28/24 22:35 71 18 98 07/28/24 22:25 73 20 78/46 L 99 07/28/24 22:19 76 07/28/24 22:09 36.5 C 18 115/81 99 O2 Del Method 07/29/24 00:00 Room Air 07/28/24 22:57 Room Air 07/28/24 22:43 07/28/24 22:35 Room Air 07/28/24 22:25 Room Air 07/28/24 22:19 07/28/24 22:09 Room Air Laboratory Results Laboratory Results WBC 8.28 K/ul (4.8-10.8) 07/28/24 22: RBC 3.75 M/uL (4.70-6.10) L 07/28/24 22: Hgb 11.8 g/dl (14.0-18.0) L 07/28/24: Hct 35.3 % (42.0-52.0) L 07/28/24 22: MCV 94.1 fL (80.0-100.0) 07/28/24: MCH 31.5 pg (25.0-34.0) 07/28/24: MCHC 33.4 g/dL (32.0-36.0) 07/28/24 22: RDW Std Deviation 44.7 fL (36.4-46.3) 07/28/24: RDW Coeff of Mehnaz 12.9 % (11.5-14.5) 07/28/24: Plt Count 149 K/uL (130-400) 07/28/24: MPV 11.4 fL (9.4-12.4) 07/28/24: Immature Gran % (Auto) 0.5 % 07/28/24 22: Neut % (Auto) 53.8 % 07/28/24: Lymph % (Auto) 28.0 % 07/28/24: Gilliam % (Auto) 9.5 % 07/28/24: Eos % (Auto) 7.4 % 07/28/24: Baso % (Auto) 0.8 % 07/28/24: Neut # (Auto) 4.45 K/uL (1.40-6.50) 07/28/24: Lymph # (Auto) 2.32 K/uL (1.20-3.40) 07/28/24 22:28 Gilliam # (Auto) 0.79 K/uL (0.11-0.59) H 07/28/24 22:28 Eos # (Auto) 0.61 K/uL (0.00-0.50) H 07/28/24 22:28 Baso # (Auto) 0.07 K/uL (0.00-0.20) 07/28/24 22: Immature Gran # (Auto) 0.04 K/uL (0.01-0.20) 07/28/24 22: PT 10.9 Seconds (9.0-12.0) 07/28/24 22: INR 1.0 (0.9-1.1) 07/28/24 22: VBG pH 7.42 (7.36-7.41) H 07/28/24 23:12 VBG pCO2 42 mmHg (38-50) 07/28/24 23:12 VBG pO2 33 mmHg 07/28/24 23:12 VBG HCO3 27 mmol/L 07/28/24 23:12 VBG O2 Saturation < 60.0 % 07/28/24 23:12 VBG Base Excess 2.4 mEq/L 07/28/24 23:12 Sodium 139 mmol/L (136-145) 07/28/24 22: Potassium 3.9 mmol/L (3.5-5.1) 07/28/24 22: Chloride 104 mmol/L (98-107) 07/28/24 22: Carbon Dioxide 27 mmol/L (21-32) 07/28/24 22:28 Anion Gap 8 (3-11) 07/28/24 22:28 BUN 45 mg/dl (6-23) H 07/28/24 22:28 Creatinine 2.16 mg/dl (0.6-1.4) H 07/28/24 22:28 Est Cr Clr Drug Dosing 25.1 ml/min 07/28/24 22: eGFR 29.64 07/28/24 22: BUN/Creatinine Ratio 20.8 (10-20) H 07/28/24 22:28 Glucose 105 mg/dl (70-99(Fasting)) H 07/28/24 22:28 Lactate 0.7 mmol/L (0.4-2.0) 07/28/24 23:12 Calcium 11.1 mg/dl (8.6-10.3) H 07/28/24 22:28 Phosphorus 2.8 mg/dl (2.5-4.9) 07/28/24 22: Magnesium 1.7 mg/dl (1.7-2.4) 07/28/24 22:28 Total Bilirubin 0.5 mg/dl (0.2-1.0) 07/28/24 22:28 AST 21 U/L (13-39) 07/28/24 22:28 ALT 16 U/L (7-52) 07/28/24 22:28 Alkaline Phosphatase 67 U/L (34-104) 07/28/24 22: Total Creatine Kinase 53 U/L (30-223) 07/29/24 00:48 Troponin I High Sens 43.1 pg/ml (0-20) H 07/29/24 00:48 Total Protein 6.2 gm/dl (6.0-8.3) 07/28/24 22:28 Albumin 3.9 gm/dl (3.4-5.0) 07/28/24 22:28 Globulin 2.3 gm/dl (2.5-4.0) L 07/28/24 22:28 Albumin/Globulin Ratio 1.7 (0.9-2) 07/28/24 22:28 Lipase 73 U/L (11-82) 07/28/24 22:28 Procalcitonin 0.12 ng/ml (0-0.5) 07/28/24 22:28 TSH 1.173 uIu/ml (0.300-4.500) 07/28/24 22:28 Random Cortisol 19.30 mcg/dl 07/28/24 22:28 Urine Color Yellow 07/29/24 01:09 Urine Appearance Clear (Clear) 07/29/24 01:09 Urine pH 5.5 (4.5-7.5) 07/29/24 01:09 Ur Specific Irving 1.013 (1.000-1.030) 07/29/24 01:09 Urine Protein Negative (Negative) 07/29/24 01:09 Urine Glucose (UA) Negative (Negative) 07/29/24 01:09 Urine Ketones Trace (Negative) H 07/29/24 01:09 Urine Blood Negative (Negative) 07/29/24 01:09 Urine Nitrite Negative (Negative) 07/29/24 01:09 Urine Bilirubin Negative (Negative) 07/29/24 01:09 Urine Urobilinogen Negative (Negative) 07/29/24 01:09 Ur Leukocyte Esterase Trace (Negative) H 07/29/24 01:09 Urine WBC (Auto) 0-5 /hpf (0-5) 07/29/24 01:09 Urine RBC (Auto) 0-2 /hpf (0-2) 07/29/24 01:09 U Hyaline Cast (Auto) 6-10 /lpf (0-2) H 07/29/24 01:09 U Epithel Cells (Auto) 0-2 /hpf (0-2) 07/29/24 01:09 Urine Bacteria (Auto) None Seen (None Seen) 07/29/24 01:09 Hyaline Casts Present /lpf (None Presnt) A 07/29/24 01:09 Adenovirus (PCR) Not Detected (NotDetected) 07/28/24 23:00 B. pertussis DNA (PCR) Not Detected (NotDetected) 07/28/24 23:00 B.parapertussis DNA PCR Not Detected (NotDetected) 07/28/24 23:00 C. pneumoniae DNA (PCR) Not Detected (NotDetected) 07/28/24 23:00 Coronavirus OC43 (PCR) Not Detected (NotDetected) 07/28/24 23:00 Coronavirus HKU1 (PCR) Not Detected (NotDetected) 07/28/24 23:00 Coronavirus 229E (PCR) Not Detected (NotDetected) 07/28/24 23:00 SARS-CoV-2 (PCR) Not Detected (NotDetected) 07/28/24 23:00 Coronavirus NL63 (PCR) Not Detected (NotDetected) 07/28/24 23:00 Human Metapneumovir PCR Not Detected (NotDetected) 07/28/24 23:00 Influenza Type A (PCR) Not Detected (NotDetected) 07/28/24 23:00 Influenza Type B (PCR) Not Detected (NotDetected) 07/28/24 23:00 M. pneumoniae (PCR) Not Detected (NotDetected) 07/28/24 23:00 Parainfluenza 1 (PCR) Not Detected (NotDetected) 07/28/24 23:00 Parainfluenza 2 (PCR) Not Detected (NotDetected) 07/28/24 23:00 Parainfluenza 3 (PCR) Not Detected (NotDetected) 07/28/24 23:00 Parainfluenza 4 (PCR) Not Detected (NotDetected) 07/28/24 23:00 RSV (PCR) Not Detected (NotDetected) 07/28/24 23:00 Entero/Rhino (PCR) Not Detected (NotDetected) 07/28/24 23:00 Impressions Chest X-Ray 07/28/24 22:47 Exam(s): XR CXR 1 VIEW EXAM: XR Chest, 1 View CLINICAL HISTORY: Reason for exam: Chest pain, nonspecific. TECHNIQUE: Frontal view of the chest. COMPARISON: July 23, 2034 FINDINGS: Lungs: Unremarkable. No consolidation. Pleural space: Unremarkable. No pneumothorax. Heart: Unremarkable. No cardiomegaly. Mediastinum: Unremarkable. Normal mediastinal contour. Bones/joints: Unremarkable. No acute fracture. Soft tissues: Right chest subcutaneous emphysema. This is compared to prior exam. Right venous left diffuse soft tissue swelling in the right chest subcutaneous soft tissue. IMPRESSION: No acute pulmonary pathology Right chest wall soft tissue swelling with subcutaneous emphysema. Direct visual inspection is recommended for further evaluation. Electronically signed by: Jef Medrano MD 07/29/24 00:26 AM Abdomen/Pelvis CT 07/28/24 23:23 EXAM: CT abd pelvis wo con CLINICAL HISTORY: Patient and visitor reports pt began having "neuro issues" that started tonight. pts reports convulsions and has been speaking and acting differently at irratic times. Pt recently had a heart attack on 06/30. Reports falling yesterday, denies LOC. Difficulty walking noted into triage and having intermittant jerking while being triaged. Pt reporting muscle weakness and ambulation difficulty. PW/GS TECHNIQUE: Contiguous axial images were obtained from the level of the diaphragm to the pubic symphysis without intravenous or oral contrast. Coronal and sagittal reconstructions were likewise performed and indicated to increase the sensitivity for detecting clinically relevant pathology. CT scan was performed according to ALARA (as low as reasonable achievable). 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 Evaluation of the abdominal and pelvic visceral organs is limited without intravenous contrast. The unenhanced liver, spleen, pancreas, and adrenal glands are grossly unremarkable. Multiple variable sized well defined hypodense lesions are noted involving both the lobes of liver - suggest hepatic cyst. The gallbladder is removed. Right kidney appears enlarged in size and shows multiple variable sized cortical cyst completely effacing right renal parenchyma. Few of the cysts shows curvilinear wall calcification. Few simple cortical cysts are also noted involving left kidney. Left kidney shows non-obstructive calculus of size 4 mm in upper calyx. Left kidney is normal in size and attenuation without obvious calcification. There is no hydronephrosis or perinephric stranding. The ureters are normal in caliber. No adenopathy or fluid collections are seen. No evidence of focal or diffuse bowel wall thickening or evidence of bowel obstruction is seen. No inflamed appendix is visualized in the right lower quadrant. The aorta is normal in caliber. The urinary bladder is normal in contour. Pelvic viscera are grossly unremarkable. No aggressive appearing osseous lesions are identified. IMPRESSION: 1. Multicystic kidney disease ( more on right side) -static. 2. Left kidney shows non-obstructive calculus of size 4 mm in upper calyx -new finding. 3. Multiple hepatic cysts-static. 4. No other new interval changes since prior study. Electronically signed by Fran Cummins 07-29-2024 01:[address] 07/28/24 23:23 EXAM: CT cervical spine wo con CLINICAL HISTORY: Patient and visitor reports pt began having "neuro issues" that started tonight. pts reports convulsions and has been speaking and acting differently at irratic times. Pt recently had a heart attack on 06/30. Reports falling yesterday, denies LOC. Difficulty walking noted into triage and having intermittant jerking while being triaged. Pt reporting muscle weakness and ambulation difficulty. PW/GS TECHNIQUE: Computed tomography of the cervical spine performed without intravenous contrast. Contiguous axial images were obtained from the skull base to T2, with sagittal and coronal reformatted images reconstructed from the axial data. CT scan was performed according to ALARA (as low as reasonable achievable). COMPARISON: 21 Jan 2024. FINDINGS: The normal cervical lordotic curvature is lost due to muscle spasm. Degenerative changes involving cervical spine in the form of multilevel marginal osteophytes, disc space reduction and facetal arthrosis Mild retrolisthesis of C5 over C6 vertebra. Posterior uncovertebral arthrosis is noted at C5-C6 and C6-C7 levels, which indenting ventral thecal sac and causes bilateral neuroforaminal narrowing. Cervical vertebral bodies are normal in height and alignment, with no evidence of fracture or subluxation. Lateral masses of C1 are symmetrical, and the dens is intact. Prevertebral soft tissues are not widened. The remaining suprahyoid and infrahyoid soft tissues in the neck are unremarkable. Thyroid gland is diffusely enlarged with few small calcified nodules. Suggested ultrasound correlation. IMPRESSION: 1.No acute fracture or subluxation in the cervical spine. 2.Cervical spondylosis. 3.No new interval changes since prior study. Electronically signed by Fran Cummins 07-29-2024 01:[address] 07/28/24 23:23 EXAM: CT chest diagnostic wo con CLINICAL HISTORY: Patient and visitor reports pt began having "neuro issues" that started tonight. pts reports convulsions and has been speaking and acting differently at irratic times. Pt recently had a heart attack on 06/30. Reports falling yesterday, denies LOC. Difficulty walking noted into triage and having intermittant jerking while being triaged. Pt reporting muscle weakness and ambulation difficulty. PW/GS TECHNIQUE: Contiguous axial images were obtained from the neck base through the upper abdomen without contrast. In addition, sagittal and coronal reconstructions were performed to potentially increase the sensitivity for the detection of disease. CT scan was performed according to ALARA (as low as reasonably achievable). COMPARISON: None. FINDINGS: Positional ground glass densities with subtle interstitial thickening and subpleural subsegmental atelectasis are seen involving the dependent portions of bilateral lower lobes. Subtle ground-glass densities with interstitial thickening and subpleural subsegmental atelectasis are noted involving inferior lingula and right middle lobe. The central airways are patent. There are no pleural effusions. No pneumothorax is seen. No pericardial effusion is identified. Evaluation of the mediastinum and serge is limited due to the lack of intravenous contrast. No axillary or mediastinal adenopathy is identified. Both lobes of thyroid gland appear bulky and show hypodense as well as calcified nodules within. Cardiomegaly is noted. Atherosclerotic calcifications are noted involving the aortic root, aorta and its branches, coronary arteries. Multiple cysts are noted in the visualized portion of the right renal fossa. No aggressive appearing osseous lesions are identified. IMPRESSION: 1. No significant/acute lung parenchymal abnormality detected. 2. Positional ground glass densities with subtle interstitial thickening and subpleural subsegmental atelectasis are seen involving the dependent portions of bilateral lung parenchyma. 3. Cardiomegaly. 4. Both lobes of thyroid gland appear bulky and show hypodense as well as calcified nodules within. Ultrasound correlation is advised. Electronically signed by Fran Cummins 07-29-2024 01:[address] 07/28/24 23:23 EXAM: CT head/brain wo con CLINICAL HISTORY: Patient and visitor reports pt began having "neuro issues" that started tonight. pts reports convulsions and has been speaking and acting differently at irratic times. Pt recently had a heart attack on 06/30. Reports falling yesterday, denies LOC. Difficulty walking noted into triage and having intermittant jerking while being triaged. Pt reporting muscle weakness and ambulation difficulty. PW/GS TECHNIQUE: Multiple axial images are obtained from the skull base to the vertex without contrast. CT scan was performed according to ALARA (as low as reasonably achievable). COMPARISON: 07 July 2024. FINDINGS: There is cerebral atrophy. The carlos-white matter differentiation is preserved. There are scattered periventricular hypodensities as can be seen with chronic microvascular ischemic changes. No evidence of space occupying lesion, hemorrhage, edema, mass effect, midline shift, extra axial collection, or hydrocephalus is noted. Basal cisterns are symmetric and normal in size and configuration. Visualized paranasal sinuses and mastoid air cells are well aerated. Orbital contents are within normal limits. Bony structures are intact. Rest of the findings are unchanged compared to the previous CT scan. IMPRESSION: 1. No evidence of acute intracranial abnormality is demonstrated. 2. Chronic microvascular ischemic changes. 3. Cerebral atrophy. No significant interval new findings noted as compared to the previous CT scan. MRI of the brain is advised for better evaluation if clinically indicated. Electronically signed by Fran Cummins 07-29-2024 12:57 AM Diagnostic Findings EKG as per my interpretation :Right 70, NSR, LAD, LAFB, incomplete RBBB, inferior infarct, T wave inversion inferior leads
[2024-07-29] MEDS ORDERED: PROMETHAZINE 6.25 MG/50.25 ML BAG IV PRN (01:52)
[2024-07-29] MEDS ORDERED: NON-FORMULARY MEDICATION (Ferrous Sulfate [Feosol] 325 mg (65 mg iron) tablet) PO PRN (01:58)
[2024-07-29] MEDS: LORATADINE 10 MG TAB PO ONE (02:57)
[2024-07-29] MEDS: LIDOCAINE 5% 1 PATCH TD ONE (02:57)
[2024-07-29 05:41] LABS: Basophils # (auto) 0.03 K/uL (0.00-0.20); Basophils % (auto) 0.6 %; Eosinophils # (auto) 0.01 K/uL (0.00-0.50); Eosinophils % (auto) 0.2 %; Hematocrit (blood only) 30.9 % (42.0-52.0); Hemoglobin 10.4 g/dl (14.0-18.0); Immature Granulocytes # (auto) 0.02 K/uL (0.01-0.20); Immature Granulocytes % (auto) 0.4 %; Lymphocytes # (auto) 0.95 K/uL (1.20-3.40); Lymphocytes % (auto) 19.2 %; Mean Corpuscular Hemoglobin 32.1 pg (25.0-34.0); Mean Corpuscular Hgb Conc 33.7 g/dL (32.0-36.0); Mean Corpuscular Volume 95.4 fL (80.0-100.0); Mean Platelet Volume 11.5 fL (9.4-12.4); Neutrophils # (auto) 3.84 K/uL (1.40-6.50); Neutrophils % (auto) 77.6 %; Platelet Count 109 K/uL (130-400); RDW Coefficient of Variation 12.9 % (11.5-14.5); RDW Standard Deviation 45.1 fL (36.4-46.3); Red Blood Count 3.24 M/uL (4.70-6.10); White Blood Count 4.95 K/ul (4.8-10.8)
[2024-07-29 05:55] LABS: BUN Creatinine Ratio 20.2 (10-20); Calcium 9.4 mg/dl (8.6-10.3); Creatinine Clr Calc Pharmacy 29.6 ml/min; Potassium 4.4 mmol/L (3.5-5.1)
[2024-07-29] MEDS: PANTOprazole 40 MG TAB PO SCH (06:24)
[2024-07-29] MEDS: ATORVASTATIN 40 MG TAB PO SCH (08:31)
[2024-07-29] MEDS: SERTRALINE HCL 100 MG TABLET PO SCH (08:31)
[2024-07-29] MEDS: ASPIRIN 81 MG ECTAB PO SCH (08:31)
[2024-07-29] MEDS: busPIRone 5 MG TAB PO SCH (08:31)
[2024-07-29] MEDS: MULTIVITAMIN TAB PO SCH (08:31)
[2024-07-29] MEDS: SUCRALFATE 1 GM TAB PO SCH (08:32)
[2024-07-29] MEDS: TICAGRELOR 90 MG TAB PO SCH (08:32)
[2024-07-29] MEDS: HYDROCORTISONE 10 MG TAB PO SCH ×2 (08:32→21:32)
[2024-07-29] MEDS: METOPROLOL SUCC 25MG EXT REL TAB PO SCH (10:46)
[2024-07-29] MEDS: LACTATED RINGER'S 1,000 ML IV ONE (13:31)
[2024-07-29] MEDS: ISOSORBIDE MONO EXTENDED REL 30 MG TABCR PO SCH (14:48)
[2024-07-29] MEDS: ADVANCED PROBIOTIC 625 MG CAPSULE PO SCH (14:48)
--- NOTE | 2024-07-29 15:33 | Hospitalist Progress Note ---
Date of Service July 29, 2024 Assessment & Plan (1) Hypotension: Plan: Hypotension Likely hypovolemia secondary to diarrhea Diarrhea Continue metoprolol with holding parameters Resume isosorbide as blood pressure better Hold lisinopril for now Monitor blood pressure closely Received IV fluids Stool studies pending Hold diuretics for now Advance diet as tolerated Acute kidney injury on CKD stage III Likely prerenal due to GI losses Hold lisinopril for now Cr 1.8 today Avoid nephrotoxic agents as able Monitor renal function Myoclonic jerks Hypercalcemia--POA Unclear etiology DD: Due to medications/hypercalcemia --CT head:No evidence of acute intracranial abnormality is demonstrated. Chronic microvascular ischemic changes. Cerebral atrophy. --Neck CT:No acute fracture or subluxation in the cervical spine. Cervical spondylosis. No new interval changes since prior study. --Normal PTH, TSH -- Calcium levels improved with IV fluids --Avoid calcium supplements -- Neurology consulted --Monitor electrolytes closely -- Gabapentin on hold -- Adjust medications based on renal function Suspected Adrenal insufficiency Chronic steroid use H/O Panhypopituitarism, (growth hormone deficiency, ACTH deficiency, central hypogonadism, toxic multinodular goiter as per records) H/O pituitary adenoma surgery Normal PTH, TSH, cortisol Check a.m. cortisol Continue home hydrocortisone, methimazole Chronic Troponin elevation In the setting of kidney dysfunction No significant rise in troponin levels Patient denies any chest pain, dyspnea Monitor Multicystic kidney disease Multiple hepatic cysts Incidental findings on CT Follow-up as outpatient Thrombocytopenia No acute bleeding issues currently Monitor Other chronic conditions CAD S/P stent hyperlipidemia on aspirin, statin, metoprolol Rx Chronic anemia H/O Melanoma Anxiety/mood disorder: Recently started on buspirone H/O DVT as per records Chronic back pain secondary to lumbar spinal stenosis Prediabetes, hemoglobin A1c of 5.8 last month Continue home medications as able DVT Px: SCDs re: cutaneous bruising, anemia, thrombocytopenia CODE STATUS Full code Admission and Anticipated Discharge Date Admission Date: July 29, 2024 Subjective Patient is seen and examined at bedside States feeling a lot better this morning Diarrhea resolved per patient Offers no new complaints today Eager to get discharged Denies any chest pain, dyspnea, nausea, vomiting, abdominal pain RN noted patient to have episodic jerks this afternoon Review of Systems Review of Systems: All systems reviewed & are unremarkable except as noted in Subjective Physical Exam Physical Exam: Physical Exam: Vitals signs as noted above General Appearance:Moderately built and nourished, no apparent distress Head: normocephalic, Atraumatic Eyes: normal inspection, EOMI Neck: supple, Trachea midline Respiratory/Chest: Normal breath sounds, CTA, No accessory muscle use Cardiovascular: S1, S2, No murmur Abdomen/GI:Soft, Non tender, Bowel sounds present Extremities/Musculoskeletal:normal inspection, no edema Neurologic/Psych:AAOX3, grossly no focal neurological deficits,+ decreased hearing Skin: normal color, warm Results & Data Results & Data Vital Signs (Past 12 Hours) Vital Signs Temp Pulse Pulse Resp BP BP Pulse Ox 07/29/24 11:20 36.5 C 66 18 142/71 H 97 07/29/24 10:19 53 L 07/29/24 08:22 36.4 C L 59 L 16 128/70 96 07/29/24 05:52 54 L 07/29/24 03:51 36.4 C L 62 18 136/66 97 07/29/24 03:32 61 18 114/72 98 O2 Del Method 07/29/24 11:20 Room Air 07/29/24 10:19 07/29/24 08:22 Room Air 07/29/24 05:52 07/29/24 03:51 Room Air 07/29/24 03:32 Room Air Laboratory Results Short CBC 07/28/24 07/29/24 Range/Units 22:28 05:21 WBC 8.28 4.95 (4.8-10.8) K/ul Hgb 11.8 L 10.4 L (14.0-18.0) g/dl Hct 35.3 L 30.9 L (42.0-52.0) % Plt Count 149 109 L (130-400) K/uL BMP 07/28/24 07/29/24 22:28 05:21 Sodium 139 137 Potassium 3.9 4.4 Chloride 104 108 H Carbon Dioxide 27 24 BUN 45 H 37 H Creatinine 2.16 H 1.83 H D Glucose 105 H 134 H Calcium 11.1 H 9.4 Cardiac Enzymes 07/28/24 07/29/24 Range/Units 22:28 00:48 Total Creatine Kinase 60 53 (30-223) U/L Liver Function 07/28/24 Range/Units 22:28 Total Bilirubin 0.5 (0.2-1.0) mg/dl AST 21 (13-39) U/L ALT 16 (7-52) U/L Alkaline Phosphatase 67 (34-104) U/L Albumin 3.9 (3.4-5.0) gm/dl Urine 07/29/24 Range/Units 01:09 Urine Color Yellow Urine Appearance Clear (Clear) Urine pH 5.5 (4.5-7.5) Ur Specific [place] 1.013 (1.000-1.030) Urine Protein Negative (Negative) Urine Glucose (UA) Negative (Negative)
--- NOTE | 2024-07-29 18:11 | Neurology Consultation ---
Date of Consultation July 29, 2024 Assessment & Plan (1) Myoclonus: Kai Wilkerson is an 84 yo M presenting with myoclonus, as witnessed during the encounter, likely multifactorial from metabolic causes. Agree with holding medications known to cause myoclonus such as gabapentin. Spinal stenosis can also be contributing. He does seem to have some voluntary control/movements can be distracted which explains why they are worse at night/when falling asleep. Would continue supportive care to correct his metabolic derangements and suspect this will improve. No specific concern for seizure as there is no loss of consciousness and his exam is nonfocal otherwise. -- Continue correcting metabolic factors and avoiding new centrally acting medications Telehealth Consultation Telehealth Information Telehealth Information: I performed this visit using a real-time telehealth connection between my location and the patients location ([facility]). After connecting through interactive tele-video, patient was identified by name and date of and/or wristband check.Patient (or authorized healthcare medical detail representative) was informed that this was a telemedicine visit and it was being conducted confidentially over secure lines. My office door was closed and no one else was present in the room with me.Patient (or authorized healthcare medical detail representative) provided consent to proceed with the visit, expressed an understanding of privacy and security of the telemedicine visit, and gave permission to have a hospital medical detail representative in the room in order to assist with the visit and to conduct portions of the visit, as needed. I informed the patient (or authorized healthcare medical detail representative) that I reviewed their record and presented the opportunity for them to ask any questions regarding the visit today. The patient agreed to participate. History of Present Illness Reason for Consultation: myoclonus Requesting Physician: Dr. Rinaldi Attending Physician: Feliberto Rinaldi MD History of Present Illness Kai Wilkerson is an 84 yo M presenting with involuntary jerking movements of the legs and arms intermittently. He reports that he has had restless leg syndrome before but this is different. While it can occur throughout the day it typically happens at night. He is able to stop it briefly and does not lose awareness or become altered while it occurs. He does believe he was delirious yesterday but since resolved. He had no jerking movements at all today until around 3pm when they began again. During the encounter I was able to briefly see intermittent jerking of both lower extremities and trunk muscles while we were talking. There is no urinary incontinence, no syncope or history of seizures per chart review. On arrival to [facility] he was found to be hypercalcemic with an CELI that is being treated. He denies any new medications other than buspar which was started after the twitching. He reports a history of spinal stenosis and believes at least pa rtially that the jerking is attributed to back pain. He also notes that singing seems to help calm the movements. He otherwise denies any facial or vocal involvement. Allergies Allergy/AdvReac Type Severity Reaction Status Date / Time lidocaine [From Lidoderm] AdvReac Mild Itching Verified 07/29/24 00:53 Home Medications Medication Instructions Recorded Confirmed Type aspirin 81 mg tablet,delayed 81 mg PO QAM #30 tabs 02/23/19 07/29/24 Rx release calcium 600 mg (as 1 tab PO BID #30 tabs 02/23/19 07/29/24 Rx carbonate)-vitamin D3 5 mcg (200 unit) tablet (Calcium 600 + D(3)) magnesium 250 mg tablet 250 mg PO QAM #30 tabs 02/23/19 07/29/24 Rx multivitamin (Multiple Vitamins 1 tab PO QAM 05/27/19 07/29/24 History tablet) trazodone 150 mg tablet 150 mg PO HS 10/10/19 07/29/24 History hydroxyzine HCl 10 mg tablet 10 mg PO Q6H PRN anxiety #30 tabs 10/14/19 07/29/24 Rx ascorbic acid (vitamin C) 1,000 mg 500 mg PO QAM 03/18/20 07/29/24 History tablet ferrous sulfate 325 mg (65 mg 325 mg PO QAM PRN anemia 03/18/20 07/29/24 History iron) tablet (Feosol) dicyclomine 20 mg tablet 20 mg PO TID abdominal pain 11/02/21 07/29/24 History dutasteride 0.5 mg-tamsulosin ER 2 cap PO HS 11/02/21 07/29/24 History 0.4 mg capsule ext.release 24hr mphas (Yancy) gabapentin 300 mg capsule 300 mg PO BID 11/02/21 07/29/24 History bumetanide 1 mg tablet 1 mg PO QAM 01/04/22 07/29/24 History doxazosin 4 mg tablet 8 mg PO HS 01/04/22 07/29/24 History omeprazole 20 mg capsule,delayed 20 mg PO DAILYBB 01/04/22 07/29/24 History release ondansetron 4 mg disintegrating 4 mg PO Q6H PRN nausea and 01/04/22 07/29/24 Rx tablet vomiting #14 tabs gabapentin 100 mg capsule 100 mg PO HS 01/03/23 07/29/24 History sertraline 100 mg tablet (Zoloft) 200 mg PO QAM 01/03/23 07/29/24 History hydrocortisone 5 mg tablet 10 mg PO HS 06/30/24 07/29/24 History hydrocortisone 5 mg tablet 20 mg PO DAILY 06/30/24 07/29/24 History methimazole 5 mg tablet 5 mg PO DAILY 06/30/24 07/29/24 History potassium chloride 20 mEq 20 meq PO DAILY 06/30/24 07/29/24 History tablet,extended release sucralfate 1 gram tablet 1 g PO AC 06/30/24 07/29/24 History atorvastatin 40 mg tablet 40 mg PO QAM 30 days #30 tabs 07/02/24 07/29/24 Rx isosorbide mononitrate 30 mg 30 mg PO QAM 30 days #30 tabs 07/02/24 07/29/24 Rx tablet,extended release 24 hr lisinopril 20 mg tablet 20 mg PO QAM 30 days #30 tabs 07/02/24 07/29/24 Rx metoprolol succinate 50 mg 50 mg PO BID 30 days #60 tabs 07/02/24 07/29/24 Rx tablet,extended release 24 hr ticagrelor 90 mg tablet (Brilinta) 90 mg PO BID 30 days #60 tabs 07/02/24 07/29/24 Rx buspirone 5 mg tablet 5 mg PO TID 07/23/24 07/29/24 History nitroglycerin 0.4 mg sublingual 0.4 mg sublingual DIRECTED #14 07/23/24 07/29/24 Rx tablet tabs Patient History Medical History Aspiration pneumonia Headache Muscle cramps at night HTN (hypertension) Acute renal failure superimposed on stage 3 chronic kidney disease Spasm of bowel Multiple renal cysts Deep vein thrombosis BPH (benign prostatic hyperplasia) IBS (irritable bowel syndrome) GERD (gastroesophageal reflux disease) Hyperthyroidism History of melanoma Hearing deficit Hypertension Hyperlipidemia Lumbar herniated disc HLD (hyperlipidemia) CKD (chronic kidney disease) Opioid dependence Surgical History Hx laparoscopic cholecystectomy (06/03/19) History of skin graft History of parotidectomy History of craniotomy Status post trigger finger release History of esophagogastroduodenoscopy (EGD) History of colonoscopy History of melanoma excision Family History Sister Family hx of colon cancer Father Tobacco use Coronary heart disease Mother Diverticulosis of intestine Sister Ovarian cancer Colon cancer Grandfather Cancer Aunt Cancer Uncle Cancer Grandmother (Maternal) Cancer Other No significant family history Social History Smoking Status: Former smoker Tobacco Type: Cigarettes Second Hand Exposure: No; Do You Dip or Chew Tobacco: No; Hx Alcohol Use: No Hx Substance Use: No Preferred Language: Marshallese Communication Ability: Effective Visual Impairment: No Limitations Poultry Breeder Required: No Beliefs That Will Affect Care: None Current Living Situation: Spouse Feels Safe at Home: Yes Assistive Devices: None Review of Systems +Jerking movements Physical Exam Awake and alert, speech clear and fluent, face symmetric, antigravity strength throughout. Noted twitching of the bilateral lower extremities and trunk. Results & Data Vital Signs (Past 12 Hours) Vital Signs Temp Pulse Pulse Resp BP Pulse Ox O2 Del Method 07/29/24 16:32 36.6 C 63 18 107/62 97 Room Air 07/29/24 11:20 36.5 C 66 18 142/71 H 97 Room Air 07/29/24 10:19 53 L 07/29/24 08:22 36.4 C L 59 L 16 128/70 96 Room Air Laboratory Results Abnormal lab results 07/28/24 07/28/24 07/29/24 Range/Units 22:28 23:12 00:48 RBC 3.75 L (4.70-6.10) M/uL Hgb 11.8 L (14.0-18.0) g/dl Hct 35.3 L (42.0-52.0) % Plt Count (130-400) K/uL Lymph # (Auto) (1.20-3.40) K/uL [place] # (Auto) 0.79 H (0.11-0.59) K/uL Eos # (Auto) 0.61 H (0.00-0.50) K/uL VBG pH 7.42 H (7.36-7.41) Chloride (98-107) mmol/L BUN 45 H (6-23) mg/dl Creatinine 2.16 H (0.6-1.4) mg/dl BUN/Creatinine Ratio 20.8 H (10-20) Glucose 105 H (70-99(Fasting)) mg/dl Calcium 11.1 H (8.6-10.3) mg/dl Troponin I High Sens 46.7 H 43.1 H (0-20) pg/ml Globulin 2.3 L (2.5-4.0) gm/dl Urine Ketones (Negative) Ur Leukocyte Esterase (Negative) U Hyaline Cast (Auto) (0-2) /lpf Hyaline Casts (None Presnt) /lpf 07/29/24 07/29/24 Range/Units 01:09 05:21 RBC 3.24 L (4.70-6.10) M/uL Hgb 10.4 L (14.0-18.0) g/dl Hct 30.9 L (42.0-52.0) % Plt Count 109 L (130-400) K/uL Lymph # (Auto) 0.95 L (1.20-3.40) K/uL [place] # (Auto) 0.10 L (0.11-0.59) K/uL Eos # (Auto) (0.00-0.50) K/uL VBG pH (7.36-7.41) Chloride 108 H (98-107) mmol/L BUN 37 H (6-23) mg/dl Creatinine 1.83 H D (0.6-1.4) mg/dl BUN/Creatinine Ratio 20.2 H (10-20) Glucose 134 H (70-99(Fasting)) mg/dl Calcium (8.6-10.3) mg/dl Troponin I High Sens (0-20) pg/ml Globulin (2.5-4.0) gm/dl Urine Ketones Trace H (Negative) Ur Leukocyte Esterase Trace H (Negative) U Hyaline Cast (Auto) 6-10 H (0-2) /lpf Hyaline Casts Present A (None Presnt) /lpf
[2024-07-29] MEDS: hydrOXYzine HCl 10 MG TAB PO PRN (18:17)
[2024-07-29] MEDS: ACETAMINOPHEN W/CODEINE #3 1 TAB PO PRN (19:48)
[2024-07-29] MEDS: traZODone HCL 50 MG TAB PO SCH (21:33)
[2024-07-29] MEDS: HYDROmorphone HCL 2 MG TAB PO STA (22:48)
--- NOTE | 2024-07-30 01:04 | Communication Note ---
Date of Service: July 30, 2024 Patient with back pain unrelieved by Tylenol codeine and IV Tylenol administration. low-dose oral Dilaudid trial given kidney dysfunction
[2024-07-30 08:06] LABS: Hematocrit (blood only) 26.5 % (42.0-52.0); Hemoglobin 9.2 g/dl (14.0-18.0); Mean Corpuscular Hemoglobin 32.6 pg (25.0-34.0); Mean Corpuscular Hgb Conc 34.7 g/dL (32.0-36.0); Mean Platelet Volume 11.4 fL (9.4-12.4); Platelet Count 100 K/uL (130-400); RDW Standard Deviation 44.9 fL (36.4-46.3); Red Blood Count 2.82 M/uL (4.70-6.10); White Blood Count 7.45 K/ul (4.8-10.8)
[2024-07-30 08:20] LABS: BUN Creatinine Ratio 20.8 (10-20); Calcium 8.2 mg/dl (8.6-10.3); Creatinine Clr Calc Pharmacy 37.6 ml/min; Magnesium 1.7 mg/dl (1.7-2.4); Potassium 3.6 mmol/L (3.5-5.1)
[2024-07-30] MEDS: methIMAzole 5 MG TABLET PO SCH (08:54)
--- NOTE | 2024-07-30 09:43 | XRay Report ---
XR lumbar spine 2-3V HISTORY: 84 years-old Male back pain acute low back pain with recent fall COMPARISON: CT abdomen and pelvis 07/28/2024, 01/04/2022 TECHNIQUE: 3 views of the lumbar spine FINDINGS: Cholecystectomy. Moderate colonic fecal retention. Calcifications associated with the numerous right- sided renal cysts. Arterial calcifications also noted. Minimal lumbar levoscoliosis. Moderate multilevel intervertebral disc space narrowing, spondylitic sp urring and facet arthrosis. Mild chronic superior endplate compression at L4 without retropulsion. Po sterior disc osteophyte complex formations are seen on the corresponding recent comparison CT exam. IMPRESSION: 1. No acute fracture or subluxation. 2. Degenerative changes as above with chronic L4 compression deformity. ACT 112: Negative or not required by law. The above report was generated using voice recognition software. It may contain grammatical, syntax o r spelling errors. Electronically signed by: Bharathi Ya M.D. 07/30/2024 9:41 AM
[2024-07-30] MEDS: HYDROmorphone HCL 2 MG TAB PO PRN (13:39)
--- NOTE | 2024-07-30 16:04 | Hospitalist Progress Note ---
Date of Service July 30, 2024 Assessment & Plan (1) Hypotension: Plan: Hypotension Likely hypovolemia secondary to diarrhea Diarrhea Continue isosorbide, metoprolol Hold lisinopril for now Monitor blood pressure closely Received IV fluids Stool studies pending Hold diuretics for now Diarrhea resolved Blood pressure improved Acute kidney injury on CKD stage III Likely prerenal due to GI losses Hold lisinopril for now Cr 1.8>1.4 Avoid nephrotoxic agents as able Monitor renal function Received IV fluids Myoclonic jerks Hypercalcemia--POA Unclear etiology DD: Due to medications/hypercalcemia, metabolic causes --CT head:No evidence of acute intracranial abnormality is demonstrated. Chronic microvascular ischemic changes. Cerebral atrophy. --Neck CT:No acute fracture or subluxation in the cervical spine. Cervical spondylosis. No new interval changes since prior study. --Normal PTH, TSH -- Calcium levels improved with IV fluids --Avoid calcium supplements -- Appreciate neurology Input discussed with Dr. Walker on 07/30/2024: Likely metabolic etiology. If movements persistent, could consider Keppra 500 mg BID or zonisamide 100 mg QHS --Monitor electrolytes closely -- Gabapentin on hold -- May need to follow-up with neurology as outpatient Suspected Adrenal insufficiency Chronic steroid use H/O Panhypopituitarism, (growth hormone deficiency, ACTH deficiency, central hypogonadism, toxic multinodular goiter as per records) H/O pituitary adenoma surgery Normal PTH, TSH, random cortisol Low a.m. cortisol Continue home hydrocortisone, methimazole Will increase hydrocortisone to 25 mg QAM, 50 mg QHS Patient reports having scheduled for endocrinology as outpatient Chronic Troponin elevation In the setting of kidney dysfunction No significant rise in troponin levels Patient denies any chest pain, dyspnea Monitor Lower back pain Chronic Reports ongoing back pain --Lumbar X ray: No acute fracture or subluxation. Degenerative changes as above with chronic L4 compression deformity. Previously received steroid injections in the past per patient Will request pain management evaluation Multicystic kidney disease Multiple hepatic cysts Incidental findings on CT Follow-up as outpatient Thrombocytopenia No acute bleeding issues currently Monitor Other chronic conditions CAD S/P stent hyperlipidemia on aspirin, statin, metoprolol Rx Chronic anemia H/O Melanoma Anxiety/mood disorder: Recently started on buspirone H/O DVT as per records Chronic back pain secondary to lumbar spinal stenosis Prediabetes, hemoglobin A1c of 5.8 last month Continue home medications as able DVT Px: SCDs re: cutaneous bruising, anemia, thrombocytopenia CODE STATUS Full code Admission and Anticipated Discharge Date Admission Date: July 29, 2024 Subjective Patient is seen and examined at bedside Patient had transient myoclonic movements today Discussed with neurology Reports intermittent back pain Eager to get discharged Denies any chest pain, dyspnea, nausea, vomiting, abdominal pain Review of Systems Review of Systems: All systems reviewed & are unremarkable except as noted in Subjective Physical Exam Physical Exam: Physical Exam: Vitals signs as noted above General Appearance:Moderately built and nourished, no apparent distress Head: normocephalic, Atraumatic Eyes: normal inspection, EOMI Neck: supple, Trachea midline Respiratory/Chest: Normal breath sounds, CTA, No accessory muscle use Cardiovascular: S1, S2, No murmur Abdomen/GI:Soft, Non tender, Bowel sounds present Extremities/Musculoskeletal:normal inspection, no edema Neurologic/Psych:AAOX3, grossly no focal neurological deficits,+ decreased hearing Skin: normal color, warm Results & Data Results & Data Vital Signs (Past 12 Hours) Vital Signs Temp Pulse Resp BP Pulse Ox O2 Del Method 07/30/24 11:33 36.5 C 58 L 18 130/60 97 Room Air 07/30/24 07:42 36.7 C 64 18 127/67 99 Room Air 07/30/24 03:58 37.0 C 70 18 168/71 H 98 Room Air Laboratory Results Short CBC 07/30/24 Range/Units 07:43 WBC 7.45 (4.8-10.8) K/ul Hgb 9.2 L (14.0-18.0) g/dl Hct 26.5 L (42.0-52.0) % Plt Count 100 L (130-400) K/uL BMP 07/30/24 07:43 Sodium 141 Potassium 3.6 Chloride 112 H Carbon Dioxide 24 BUN 30 H Creatinine 1.44 H D Glucose 95 Calcium 8.2 L
--- NOTE | 2024-07-30 17:06 | Electrocardiogram Report ---
Test Reason : Blood Pressure : */* mmHG Vent. Rate : 72 BPM Atrial Rate : 72 BPM P-R Int : 176 ms QRS Dur : 90 ms QT Int : 364 ms P-R-T Axes : 82 -45 -10 degrees QTcB Int : 398 ms Normal sinus rhythm Left axis deviation Old Inferior infarct (cited on or before 30-Jun-2024) Abnormal ECG When compared with ECG of 23-Jul-2024 08:26, No significant change was found Confirmed by Kael Delacruz ([id number]) on 07/30/2024 5:05:56 PM Referred By: REFERRED SELF Confirmed By: Kael Delacruz
[2024-07-30] MEDS: ACETAMINOPHEN 325 MG TAB PO PRN (17:28)
[2024-07-30] MEDS: ACETAMINOPHEN W/CODEINE #3 1 TAB PO PRN (20:19)
[2024-07-30] MEDS: HYDROCORTISONE 10 MG TAB PO SCH (20:21)
[2024-07-30] MEDS: ACETAMINOPHEN 1,000 MG/100 ML VIAL IV STA (20:22)
[2024-07-30] MEDS: tiZANidine HCL 4 MG TABLET PO STA (20:51)
[2024-07-31] MEDS: DOXAZosin MESYLATE 4 MG TAB PO STA ×2 (04:06→04:20)
[2024-07-31 07:57] LABS: Hematocrit (blood only) 28.1 % (42.0-52.0); Hemoglobin 9.6 g/dl (14.0-18.0); Mean Corpuscular Hemoglobin 32.5 pg (25.0-34.0); Mean Corpuscular Hgb Conc 34.2 g/dL (32.0-36.0); Mean Corpuscular Volume 95.3 fL (80.0-100.0); Mean Platelet Volume 12.1 fL (9.4-12.4); Platelet Count 107 K/uL (130-400); RDW Coefficient of Variation 12.9 % (11.5-14.5); Red Blood Count 2.95 M/uL (4.70-6.10); White Blood Count 6.48 K/ul (4.8-10.8)
[2024-07-31 08:12] LABS: Calcium 8.3 mg/dl (8.6-10.3); Creatinine Clr Calc Pharmacy 41.7 ml/min; Magnesium 1.9 mg/dl (1.7-2.4); Potassium 3.5 mmol/L (3.5-5.1)
[2024-07-31] MEDS: DOCUSATE SODIUM 100 MG CAP PO SCH (08:14)
[2024-07-31] MEDS: POLYETHYLENE (MIRALAX) 17 GM PACK PO PRN (08:14)
[2024-07-31] MEDS: HYDROCORTISONE 10 MG TAB PO SCH (08:19)
[2024-07-31 11:37] VITALS: BP 130/63; PULSE 65; RESP 19; TEMP 97.9; O2SAT 97
--- NOTE | 2024-07-31 12:28 | Hospitalist Progress Note ---
Date of Service July 31, 2024 Assessment & Plan (1) Hypotension: Plan: Hypotension Likely hypovolemia secondary to diarrhea Diarrhea Continue isosorbide, metoprolol Resume lisinopril as blood pressure, renal function improved Monitor blood pressure closely Received IV fluids Stool studies could not be obtained as diarrhea resolved Plan to discharge home today Acute kidney injury on CKD stage III Likely prerenal due to GI losses Hold lisinopril while hospitalized Cr 1.8>1.4> 1.3 Avoid nephrotoxic agents as able Monitor renal function Received IV fluids Myoclonic jerks Hypercalcemia--POA Unclear etiology DD: Due to medications/hypercalcemia, metabolic causes --CT head:No evidence of acute intracranial abnormality is demonstrated. Chronic microvascular ischemic changes. Cerebral atrophy. --Neck CT:No acute fracture or subluxation in the cervical spine. Cervical spondylosis. No new interval changes since prior study. --Normal PTH, TSH -- Calcium levels improved with IV fluids --Avoid calcium supplements -- Appreciate neurology Input discussed with Dr. Walker on 07/30/2024: Likely metabolic etiology. If movements persistent, could consider Keppra 500 mg BID or zonisamide 100 mg QHS --Monitor electrolytes closely -- Gabapentin will be discontinued on discharge --No recurrence overnight, this morning -- Advised to follow-up with neurology as outpatient Suspected Adrenal insufficiency Chronic steroid use H/O Panhypopituitarism, (growth hormone deficiency, ACTH deficiency, central hypogonadism, toxic multinodular goiter as per records) H/O pituitary adenoma surgery Normal PTH, TSH, random cortisol Low a.m. cortisol Continue home hydrocortisone, methimazole Will increase hydrocortisone to 25 mg QAM, 50 mg QHS Has follow-up with endocrinology as outpatient Chronic Troponin elevation In the setting of kidney dysfunction No significant rise in troponin levels Patient denies any chest pain, dyspnea Monitor Lower back pain Chronic Reports ongoing back pain --Lumbar X ray: No acute fracture or subluxation. Degenerative changes as above with chronic L4 compression deformity. Previously received steroid injections in the past per patient requested pain management evaluation Reports having follow-up with pain management as outpatient Multicystic kidney disease Multiple hepatic cysts Incidental findings on CT Follow-up as outpatient Thrombocytopenia No acute bleeding issues currently Monitor Other chronic conditions CAD S/P stent hyperlipidemia on aspirin, statin, metoprolol Rx Chronic anemia H/O Melanoma Anxiety/mood disorder: Recently started on buspirone H/O DVT as per records Chronic back pain secondary to lumbar spinal stenosis Prediabetes, hemoglobin A1c of 5.8 last month Continue home medications as able DVT Px: SCDs re: cutaneous bruising, anemia, thrombocytopenia CODE STATUS Full code Disposition Home Admission and Anticipated Discharge Date Admission Date: July 29, 2024 Subjective Patient is seen and examined at bedside Feels a lot better today Offers no complaints Denies any bleeding issues Updated patient's over the phone Back pain is well-controlled No jerking movements overnight or this morning Also denies any chest pain, dyspnea, nausea, vomiting, abdominal pain Review of Systems Review of Systems: All systems reviewed & are unremarkable except as noted in Subjective Physical Exam Physical Exam: Physical Exam: Vitals signs as noted above General Appearance:Moderately built and nourished, no apparent distress Head: normocephalic, Atraumatic Eyes: normal inspection, EOMI Neck: supple, Trachea midline Respiratory/Chest: Normal breath sounds, CTA, No accessory muscle use Cardiovascular: S1, S2, No murmur Abdomen/GI:Soft, Non tender, Bowel sounds present Extremities/Musculoskeletal:normal inspection, no edema Neurologic/Psych:AAOX3, grossly no focal neurological deficits,+ decreased hearing Skin: normal color, warm Results & Data Results & Data Vital Signs (Past 12 Hours) Vital Signs Temp Pulse Pulse Resp BP BP Pulse Ox 07/31/24 11:36 36.6 C 65 19 130/63 97 07/31/24 07:30 55 L 07/31/24 07:07 36.7 C 65 18 156/63 H 99 07/31/24 06:32 145/70 H 07/31/24 03:53 36.6 C 61 16 169/66 H 96 O2 Del Method 07/31/24 11:36 Room Air 07/31/24 07:30 07/31/24 07:07 Room Air 07/31/24 06:32 07/31/24 03:53 Room Air Laboratory Results Short CBC 07/31/24 Range/Units 07:09 WBC 6.48 (4.8-10.8) K/ul Hgb 9.6 L (14.0-18.0) g/dl Hct 28.1 L (42.0-52.0) % Plt Count 107 L (130-400) K/uL BMP 07/31/24 07:09 Sodium 143 Potassium 3.5 Chloride 114 H Carbon Dioxide 24 BUN 26 H Creatinine 1.30 Glucose 99 Calcium 8.3 L
--- NOTE | 2024-07-31 12:48 | Discharge Summary ---
Date of Service July 31, 2024 Admission HPI Per Admitting Provider History obtained from patient and records. 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 3 admissions last month. 06/30-07/02 Patient admitted for NSTEMI status post PCI. 07/08-07/09 Patient admitted for confusion/delirium attributed to home Vicodin. Patient instructed to avoid Vicodin upon return home. 07/10-07/11 patient readmitted for chest pain. Patent stents on diagnostic cardiac catheterization. Patient returned to ER last week for chest pain attributed to anxiety. Patient has not been well since stent procedure last month. Fair appetite. Anxiety, denies depression. PCP started patient on buspirone for anxiety. Medication not working as well as per patient. Patient noted watery diarrhea symptoms yesterday with some abdominal discomfort. Denies black/bloody stools. Some skin bruising. Increasing generalized weakness. No headache, no chest pain, no SOB. Patient noted to have involuntary jerking. Patient sure that patient does not have access to Vicodin anymore. Patient brought to ER for evaluation. SBP 70s upon arrival at the ER. Medical History as above Surgical History : Pituitary tumor removal Family History : Breast cancer, heart disease Personal/Social history : Past tobacco abuse, no EtOH intake Admission Exam Per Admitting Provider GENERAL: Pleasant, slightly uncomfortable, episodic myoclonic jerks, no respiratory distress SKIN: Pallor, warm, cutaneous bruising HEENT: Bespectacled, pale palpebral conjunctivae, no ptosis, dry buccal mucosa NECK : Supple, no tenderness CHEST : CTA, no tenderness HEART : RRR, no obvious murmurs ABDOMEN: no distention, nontender EXTREMITIES : No LE swelling/tenderness, no other conspicuous deformities noted NEUROLOGIC : Coherent, no facial asymmetry, episodic myoclonic jerks, no other gross focality Principal Diagnosis Acute kidney injury on CKD stage III Hypotension secondary to diarrhea Myoclonic jerks Hypercalcemia Suspected adrenal insufficiency Multicystic kidney disease Multiple hepatic cysts Thrombocytopenia Discharge Data Allergies Allergy/AdvReac Type Severity Reaction Status Date / Time lidocaine [From Lidoderm] AdvReac Mild Itching Verified 07/29/24 00:53 Consultations 07/29/24 00:54 ED Decision to Admit Stat 07/29/24 14:43 Consult Neurology Routine Procedures Performed Laboratory Results WBC 6.48 K/ul (4.8-10.8) 07/31/24 07:09 RBC 2.95 M/uL (4.70-6.10) L 07/31/24 07:09 Hgb 9.6 g/dl (14.0-18.0) L 07/31/24 07:09 Hct 28.1 % (42.0-52.0) L 07/31/24 07:09 MCV 95.3 fL (80.0-100.0) 07/31/24 07:09 MCH 32.5 pg (25.0-34.0) 07/31/24 07:09 MCHC 34.2 g/dL (32.0-36.0) 07/31/24 07:09 RDW Std Deviation 45.0 fL (36.4-46.3) 07/31/24 07:09 RDW Coeff of Mehnaz 12.9 % (11.5-14.5) 07/31/24 07:09 Plt Count 107 K/uL (130-400) L 07/31/24 07:09 MPV 12.1 fL (9.4-12.4) 07/31/24 07:09 Immature Gran % (Auto) 0.4 % 07/29/24 05:21 Neut % (Auto) 77.6 % 07/29/24 05:21 Lymph % (Auto) 19.2 % 07/29/24 05:21 [place] % (Auto) 2.0 % 07/29/24 05:21 Eos % (Auto) 0.2 % 07/29/24 05:21 Baso % (Auto) 0.6 % 07/29/24 05:21 Neut # (Auto) 3.84 K/uL (1.40-6.50) 07/29/24 05:21 Lymph # (Auto) 0.95 K/uL (1.20-3.40) L 07/29/24 05:21 [place] # (Auto) 0.10 K/uL (0.11-0.59) L 07/29/24 05:21 Eos # (Auto) 0.01 K/uL (0.00-0.50) 07/29/24 05:21 Baso # (Auto) 0.03 K/uL (0.00-0.20) 07/29/24 05:21 Immature Gran # (Auto) 0.02 K/uL (0.01-0.20) 07/29/24 05:21 PT 10.9 Seconds (9.0-12.0) 07/28/24 22:28 INR 1.0 (0.9-1.1) 07/28/24 22:28 VBG pH 7.42 (7.36-7.41) H 07/28/24 23:12 VBG pCO2 42 mmHg (38-50) 07/28/24 23:12 VBG pO2 33 mmHg 07/28/24 23:12 VBG HCO3 27 mmol/L 07/28/24 23:12 VBG O2 Saturation < 60.0 % 07/28/24 23:12 VBG Base Excess 2.4 mEq/L 07/28/24 23:12 Sodium 143 mmol/L (136-145) 07/31/24 07:09 Potassium 3.5 mmol/L (3.5-5.1) 07/31/24 07:09 Chloride 114 mmol/L (98-107) H 07/31/24 07:09 Carbon Dioxide 24 mmol/L (21-32) 07/31/24 07:09 Anion Gap 5 (3-11) 07/31/24 07:09 BUN 26 mg/dl (6-23) H 07/31/24 07:09 Creatinine 1.30 mg/dl (0.6-1.4) 07/31/24 07:09 Est Cr Clr Drug Dosing 41.7 ml/min 07/31/24 07:09 eGFR 54.51 07/31/24 07:09 BUN/Creatinine Ratio 20.0 (10-20) 07/31/24 07:09 Glucose 99 mg/dl (70-99(Fasting)) 07/31/24 07:09 Lactate 0.7 mmol/L (0.4-2.0) 07/29/24 05:21 Calcium 8.3 mg/dl (8.6-10.3) L 07/31/24 07:09 Phosphorus 2.8 mg/dl (2.5-4.9) 07/28/24 22:28 Magnesium 1.9 mg/dl (1.7-2.4) 07/31/24 07:09 Total Bilirubin 0.5 mg/dl (0.2-1.0) 07/28/24 22:28 AST 21 U/L (13-39) 07/28/24 22:28 ALT 16 U/L (7-52) 07/28/24 22:28 Alkaline Phosphatase 67 U/L (34-104) 07/28/24 22:28 Total Creatine Kinase 53 U/L (30-223) 07/29/24 00:48 Troponin I High Sens 43.1 pg/ml (0-20) H 07/29/24 00:48 Total Protein 6.2 gm/dl (6.0-8.3) 07/28/24 22:28 Albumin 3.9 gm/dl (3.4-5.0) 07/28/24 22:28 Globulin 2.3 gm/dl (2.5-4.0) L 07/28/24 22:28 Albumin/Globulin Ratio 1.7 (0.9-2) 07/28/24 22:28 Lipase 73 U/L (11-82) 07/28/24 22:28 Procalcitonin 0.12 ng/ml (0-0.5) 07/28/24 22:28 TSH 1.173 uIu/ml (0.300-4.500) 07/28/24 22:28 PTH Intact 16.2 pg/ml (12.0-88.0) 07/29/24 05:21 Random Cortisol 19.30 mcg/dl 07/28/24 22:28 Cortisol AM Sample 4.35 mcg/dl (6.2-22.6) L 07/30/24 07:43 Urine Color Yellow 07/29/24 01:09 Urine Appearance Clear (Clear) 07/29/24 01:09 Urine pH 5.5 (4.5-7.5) 07/29/24 01:09 Ur Specific [place] 1.013 (1.000-1.030) 07/29/24 01:09 Urine Protein Negative (Negative) 07/29/24 01:09 Urine Glucose (UA) Negative (Negative) 07/29/24 01:09 Urine Ketones Trace (Negative) H 07/29/24 01:09 Urine Blood Negative (Negative) 07/29/24 01:09 Urine Nitrite Negative (Negative) 07/29/24 01:09 Urine Bilirubin Negative (Negative) 07/29/24 01:09 Urine Urobilinogen Negative (Negative) 07/29/24 01:09 Ur Leukocyte Esterase Trace (Negative) H 07/29/24 01:09 Urine WBC (Auto) 0-5 /hpf (0-5) 07/29/24 01:09 Urine RBC (Auto) 0-2 /hpf (0-2) 07/29/24 01:09 U Hyaline Cast (Auto) 6-10 /lpf (0-2) H 07/29/24 01:09 U Epithel Cells (Auto) 0-2 /hpf (0-2) 07/29/24 01:09 Urine Bacteria (Auto) None Seen (None Seen) 07/29/24 01:09 Hyaline Casts Present /lpf (None Presnt) A 07/29/24 01:09 Adenovirus (PCR) Not Detected (NotDetected) 07/28/24 23:00 B. pertussis DNA (PCR) Not Detected (NotDetected) 07/28/24 23:00 B.parapertussis DNA PCR Not Detected (NotDetected) 07/28/24 23:00 C. pneumoniae DNA (PCR) Not Detected (NotDetected) 07/28/24 23:00 Coronavirus OC43 (PCR) Not Detected (NotDetected) 07/28/24 23:00 Coronavirus HKU1 (PCR) Not Detected (NotDetected) 07/28/24 23:00 Coronavirus 229E (PCR) Not Detected (NotDetected) 07/28/24 23:00 SARS-CoV-2 (PCR) Not Detected (NotDetected) 07/28/24 23:00 Coronavirus NL63 (PCR) Not Detected (NotDetected) 07/28/24 23:00 Human Metapneumovir PCR Not Detected (NotDetected) 07/28/24 23:00 Influenza Type A (PCR) Not Detected (NotDetected) 07/28/24 23:00 Influenza Type B (PCR) Not Detected (NotDetected) 07/28/24 23:00 M. pneumoniae (PCR) Not Detected (NotDetected) 07/28/24 23:00 Parainfluenza 1 (PCR) Not Detected (NotDetected) 07/28/24 23:00 Parainfluenza 2 (PCR) Not Detected (NotDetected) 07/28/24 23:00 Parainfluenza 3 (PCR) Not Detected (NotDetected) 07/28/24 23:00 Parainfluenza 4 (PCR) Not Detected (NotDetected) 07/28/24 23:00 RSV (PCR) Not Detected (NotDetected) 07/28/24 23:00 Entero/Rhino (PCR) Not Detected (NotDetected) 07/28/24 23:00 Impressions Chest X-Ray 07/28/24 22:47 Exam(s): XR CXR 1 VIEW EXAM: XR Chest, 1 View CLINICAL HISTORY: Reason for exam: Chest pain, nonspecific. TECHNIQUE: Frontal view of the chest. COMPARISON: July 23, 2034 FINDINGS: Lungs: Unremarkable. No consolidation. Pleural space: Unremarkable. No pneumothorax. Heart: Unremarkable. No cardiomegaly. Mediastinum: Unremarkable. Normal mediastinal contour. Bones/joints: Unremarkable. No acute fracture. Soft tissues: Right chest subcutaneous emphysema. This is compared to prior exam. Right venous left diffuse soft tissue swelling in the right chest subcutaneous soft tissue. IMPRESSION: No acute pulmonary pathology Right chest wall soft tissue swelling with subcutaneous emphysema. Direct visual inspection is recommended for further evaluation. Electronically signed by: Jef Medrano MD 07/29/24 00:26 AM Abdomen/Pelvis CT 07/28/24 23:23 EXAM: CT abd pelvis wo con CLINICAL HISTORY: Patient and visitor reports pt began having "neuro issues" that started tonight. pts reports convulsions and has been speaking and acting differently at irratic times. Pt recently had a heart attack on 06/30. Reports falling yesterday, denies LOC. Difficulty walking noted into triage and having intermittant jerking while being triaged. Pt reporting muscle weakness and ambulation difficulty. PW/GS TECHNIQUE: Contiguous axial images were obtained from the level of the diaphragm to the pubic symphysis without intravenous or oral contrast. Coronal and sagittal reconstructions were likewise performed and indicated to increase the sensitivity for detecting clinically relevant pathology. CT scan was performed according to ALARA (as low as reasonable achievable). COMPARISON: 01/04/2022 11:20:34 AUTOMATION MANAGER FINDINGS: The visualized lung bases are clear. Evaluation of the abdominal and pelvic visceral organs is limited without intravenous contrast. The unenhanced liver, spleen, pancreas, and adrenal glands are grossly unremarkable. Multiple variable sized well defined hypodense lesions are noted involving both the lobes of liver - suggest hepatic cyst. The gallbladder is removed. Right kidney appears enlarged in size and shows multiple variable sized cortical cyst completely effacing right renal parenchyma. Few of the cysts shows curvilinear wall calcification. Few simple cortical cysts are also noted involving left kidney. Left kidney shows non-obstructive calculus of size 4 mm in upper calyx. Left kidney is normal in size and attenuation without obvious calcification. There is no hydronephrosis or perinephric stranding. The ureters are normal in caliber. No adenopathy or fluid collections are seen. No evidence of focal or diffuse bowel wall thickening or evidence of bowel obstruction is seen. No inflamed appendix is visualized in the right lower quadrant. The aorta is normal in caliber. The urinary bladder is normal in contour. Pelvic viscera are grossly unremarkable. No aggressive appearing osseous lesions are identified. IMPRESSION: 1. Multicystic kidney disease ( more on right side) -static. 2. Left kidney shows non-obstructive calculus of size 4 mm in upper calyx -new finding. 3. Multiple hepatic cysts-static. 4. No other new interval changes since prior study. Electronically signed by Fran Cummins 07-29-2024 01:[address] 07/28/24 23:23 EXAM: CT cervical spine wo con CLINICAL HISTORY: Patient and visitor reports pt began having "neuro issues" that started tonight. pts reports convulsions and has been speaking and acting differently at irratic times. Pt recently had a heart attack on 06/30. Reports falling yesterday, denies LOC. Difficulty walking noted into triage and having intermittant jerking while being triaged. Pt reporting muscle weakness and ambulation difficulty. PW/GS TECHNIQUE: Computed tomography of the cervical spine performed without intravenous contrast. Contiguous axial images were obtained from the skull base to T2, with sagittal and coronal reformatted images reconstructed from the axial data. CT scan was performed according to ALARA (as low as reasonable achievable). COMPARISON: 21 Jan 2024. FINDINGS: The normal cervical lordotic curvature is lost due to muscle spasm. Degenerative changes involving cervical spine in the form of multilevel marginal osteophytes, disc space reduction and facetal arthrosis Mild retrolisthesis of C5 over C6 vertebra. Posterior uncovertebral arthrosis is noted at C5-C6 and C6-C7 levels, which indenting ventral thecal sac and causes bilateral neuroforaminal narrowing. Cervical vertebral bodies are normal in height and alignment, with no evidence of fracture or subluxation. Lateral masses of C1 are symmetrical, and the dens is intact. Prevertebral soft tissues are not widened. The remaining suprahyoid and infrahyoid soft tissues in the neck are unremarkable. Thyroid gland is diffusely enlarged with few small calcified nodules. Suggested ultrasound correlation. IMPRESSION: 1.No acute fracture or subluxation in the cervical spine. 2.Cervical spondylosis. 3.No new interval changes since prior study. Electronically signed by Fran Cummins 07-29-2024 01:[address] 07/28/24 23:23 EXAM: CT chest diagnostic wo con CLINICAL HISTORY: Patient and visitor reports pt began having "neuro issues" that started tonight. pts reports convulsions and has been speaking and acting differently at irratic times. Pt recently had a heart attack on 06/30. Reports falling yesterday, denies LOC. Difficulty walking noted into triage and having intermittant jerking while being triaged. Pt reporting muscle weakness and ambulation difficulty. PW/GS TECHNIQUE: Contiguous axial images were obtained from the neck base through the upper abdomen without contrast. In addition, sagittal and coronal reconstructions were performed to potentially increase the sensitivity for the detection of disease. CT scan was performed according to ALARA (as low as reasonably achievable). COMPARISON: None. FINDINGS: Positional ground glass densities with subtle interstitial thickening and subpleural subsegmental atelectasis are seen involving the dependent portions of bilateral lower lobes. Subtle ground-glass densities with interstitial thickening and subpleural subsegmental atelectasis are noted involving inferior lingula and right middle lobe. The central airways are patent. There are no pleural effusions. No pneumothorax is seen. No pericardial effusion is identified. Evaluation of the mediastinum and serge is limited due to the lack of intravenous contrast. No axillary or mediastinal adenopathy is identified. Both lobes of thyroid gland appear bulky and show hypodense as well as calcified nodules within. Cardiomegaly is noted. Atherosclerotic calcifications are noted involving the aortic root, aorta and its branches, coronary arteries. Multiple cysts are noted in the visualized portion of the right renal fossa. No aggressive appearing osseous lesions are identified. IMPRESSION: 1. No significant/acute lung parenchymal abnormality detected. 2. Positional ground glass densities with subtle interstitial thickening and subpleural subsegmental atelectasis are seen involving the dependent portions of bilateral lung parenchyma. 3. Cardiomegaly. 4. Both lobes of thyroid gland appear bulky and show hypodense as well as calcified nodules within. Ultrasound correlation is advised. Electronically signed by Fran Cummins 07-29-2024 01:[address] 07/28/24 23:23 EXAM: CT head/brain wo con CLINICAL HISTORY: Patient and visitor reports pt began having "neuro issues" that started tonight. pts reports convulsions and has been speaking and acting differently at irratic times. Pt recently had a heart attack on 06/30. Reports falling yesterday, denies LOC. Difficulty walking noted into triage and having intermittant jerking while being triaged. Pt reporting muscle weakness and ambulation difficulty. PW/GS TECHNIQUE: Multiple axial images are obtained from the skull base to the vertex without contrast. CT scan was performed according to ALARA (as low as reasonably achievable). COMPARISON: 07 July 2024. FINDINGS: There is cerebral atrophy. The carlos-white matter differentiation is preserved. There are scattered periventricular hypodensities as can be seen with chronic microvascular ischemic changes. No evidence of space occupying lesion, hemorrhage, edema, mass effect, midline shift, extra axial collection, or hydrocephalus is noted. Basal cisterns are symmetric and normal in size and configuration. Visualized paranasal sinuses and mastoid air cells are well aerated. Orbital contents are within normal limits. Bony structures are intact. Rest of the findings are unchanged compared to the previous CT scan. IMPRESSION: 1. No evidence of acute intracranial abnormality is demonstrated. 2. Chronic microvascular ischemic changes. 3. Cerebral atrophy. No significant interval new findings noted as compared to the previous CT scan. MRI of the brain is advised for better evaluation if clinically indicated. Electronically signed by Fran Cummins 07-29-2024 12:57 AM Lumbar Spine X-Ray 07/30/24 07:44 XR lumbar spine 2-3V HISTORY: 84 years-old Male back pain acute low back pain with recent fall COMPARISON: CT abdomen and pelvis 07/28/2024, 01/04/2022 TECHNIQUE: 3 views of the lumbar spine FINDINGS: Cholecystectomy. Moderate colonic fecal retention. Calcifications associated with the numerous right-sided renal cysts. Arterial calcifications also noted. Minimal lumbar levoscoliosis. Moderate multilevel intervertebral disc space narrowing, spondylitic spurring and facet arthrosis. Mild chronic superior endplate compression at L4 without retropulsion. Posterior disc osteophyte complex formations are seen on the corresponding recent comparison CT exam. IMPRESSION: 1. No acute fracture or subluxation. 2. Degenerative changes as above with chronic L4 compression deformity. ACT 112: Negative or not required by law. The above report was generated using voice recognition software. It may contain grammatical, syntax or spelling errors. Electronically signed by: Bharathi Ya M.D. 07/30/2024 9:41 AM Ordered Studies 07/28/24 23:23 CT abd pelvis wo con Stat CT cervical spine wo con Stat CT chest without contrast [CT chest diagnostic wo con] Stat CT head/brain wo con Stat Hospital Course (1) Hypotension: Hypotension Likely hypovolemia secondary to diarrhea Diarrhea Continue isosorbide, metoprolol Resume lisinopril as blood pressure, renal function improved Monitor blood pressure closely Received IV fluids Stool studies could not be obtained as diarrhea resolved Plan to discharge home today Acute kidney injury on CKD stage III Likely prerenal due to GI losses Hold lisinopril while hospitalized Cr 1.8>1.4> 1.3 Avoid nephrotoxic agents as able Monitor renal function Received IV fluids Myoclonic jerks Hypercalcemia--POA Unclear etiology DD: Due to medications/hypercalcemia, metabolic causes --CT head:No evidence of acute intracranial abnormality is demonstrated. Chronic microvascular ischemic changes. Cerebral atrophy. --Neck CT:No acute fracture or subluxation in the cervical spine. Cervical spondylosis. No new interval changes since prior study. --Normal PTH, TSH -- Calcium levels improved with IV fluids --Avoid calcium supplements -- Appreciate neurology Input discussed with Dr. Walker on 07/30/2024: Likely metabolic etiology. If movements persistent, could consider Keppra 500 mg BID or zonisamide 100 mg QHS --Monitor electrolytes closely -- Gabapentin will be discontinued on discharge --No recurrence overnight, this morning -- Advised to follow-up with neurology as outpatient Suspected Adrenal insufficiency Chronic steroid use H/O Panhypopituitarism, (growth hormone deficiency, ACTH deficiency, central hypogonadism, toxic multinodular goiter as per records) H/O pituitary adenoma surgery Normal PTH, TSH, random cortisol Low a.m. cortisol Continue home hydrocortisone, methimazole Will increase hydrocortisone to 25 mg QAM, 50 mg QHS Has follow-up with endocrinology as outpatient Chronic Troponin elevation In the setting of kidney dysfunction No significant rise in troponin levels Patient denies any chest pain, dyspnea Monitor Lower back pain Chronic Reports ongoing back pain --Lumbar X ray: No acute fracture or subluxation. Degenerative changes as above with chronic L4 compression deformity. Previously received steroid injections in the past per patient requested pain management evaluation Reports having follow-up with pain management as outpatient Multicystic kidney disease Multiple hepatic cysts Incidental findings on CT Follow-up as outpatient Thrombocytopenia No acute bleeding issues currently Monitor Other chronic conditions CAD S/P stent hyperlipidemia on aspirin, statin, metoprolol Rx Chronic anemia H/O Melanoma Anxiety/mood disorder: Recently started on buspirone H/O DVT as per records Chronic back pain secondary to lumbar spinal stenosis Prediabetes, hemoglobin A1c of 5.8 last month Continue home medications as able DVT Px: SCDs re: cutaneous bruising, anemia, thrombocytopenia CODE STATUS Full code Disposition Home Total Time Total Time Spent Total Time Spent (In Minutes): 47 minutes Discharge Plan Discharge Items Patient Disposition: Home - Home Health Services Reason For Visit: HYPOTENSION, ARF CKD Discharge Diagnosis: Acute kidney injury on CKD stage III Hypotension secondary to diarrhea Myoclonic jerks Hypercalcemia Suspected adrenal insufficiency Multicystic kidney disease Multiple hepatic cysts Thrombocytopenia Activity: Per Instructions section Exercise/Sports: Gradually increase as tolerated Non-emergency contact: Primary Care Provider, Specialist, Neurologist and Pain Management Call non-emergency contact if: you have any medication questions, your symptoms worsen, your pain is concerning for you and you have a fever Follow-up/Referrals: Michele Reece MD [Physician] - 09/02/24 12:30 pm Clarissa Brown PA-C [Physician Credit Products Officer] - 08/12/24 2:15 pm Anna Kim PA-C [Physician Credit Products Officer] - (Date & Time 08/06/2024 8:00 AM Provider Anna Kim PA-C Department Neurology [facility] ) Shalom Lieberman MD [Primary Care Provider] - (Date & Time 08/04/2024 11:00 AM Provider Shalom Lieberman MD Department [facility] ) Diet: Heart Healthy Addtl Attending Provider Instructions: Follow-up with your primary care physician on 08/04/2024 11:00 AM Follow-up with your neurologist Anna Kim PA-C on 08/06/2024 8:00 AM Follow-up with pain management Clarissa Brown PA-C on 08/12/2024 at 12:15 PM as scheduled Follow-up with your fieldwork coordinator on 09/02/2024 at 12:30 PM as scheduled. --Your gabapentin, calcium with vitamin D supplements are discontinued as you are noted to have high calcium levels and possible toxicity from gabapentin. --You hydrocortisone dose is increased to 25 mg every morning and 50 mg every afternoon as you suspected to have possible adrenal insufficiency --Get blood test (complete blood count, basic metabolic panel) in 1 week to monitor your hemoglobin, platelet count, creatinine, and calcium levels. --Monitor your blood pressure regularly at home as advised. -- You are incidentally noted to have cysts on your kidneys and liver. Discussed with your physician for further recommendations as outpatient. Seek immediate medical attention if your symptoms reoccur or worsen Please take all medications as instructed on discharge list below. Please call if you have any questions or problems. You can reach a [facility] hospitalist on duty at [facility] 24 hours a day by calling [phone] Pending Studies at Discharge: No Stand-Alone Forms: My [facility] [employer], Smoking Cessation Medications and DC Order Prescriptions: New acetaminophen-codeine 300-30 mg Tablet 1 tab PO DAILY PRN (Reason: pain) Qty: 7 0RF docusate sodium 100 mg Capsule 100 mg PO BID PRN (Reason: Constipation) Qty: 30 0RF Continued aspirin 81 mg tablet,delayed release (DR/EC) 81 mg PO QAM Qty: 30 0RF magnesium 250 mg tablet 250 mg PO QAM Qty: 30 0RF sertraline [Zoloft] 100 mg tablet 200 mg PO QAM dicyclomine 20 mg tablet 20 mg PO TID ascorbic acid (vitamin C) 1,000 mg tablet 500 mg PO QAM ferrous sulfate [Feosol] 325 mg (65 mg iron) tablet 325 mg PO QAM PRN (Reason: anemia) dutasteride-tamsulosin [Yancy] 0.5-0.4 mg capsule, ER multiphase 24 hr 2 cap PO HS trazodone 150 mg tablet 150 mg PO HS hydroxyzine HCl 10 mg Tablet 10 mg PO Q6H PRN (Reason: anxiety) Qty: 30 0RF multivitamin [Multiple Vitamins] Tablet 1 tab PO QAM omeprazole 20 mg capsule,delayed release(DR/EC) 20 mg PO DAILYBB doxazosin 4 mg tablet 8 mg PO HS bumetanide 1 mg tablet 1 mg PO QAM ondansetron 4 mg tablet,disintegrating 4 mg PO Q6H PRN (Reason: nausea and vomiting) Qty: 14 0RF methimazole 5 mg tablet 5 mg PO DAILY sucralfate 1 gram Tablet 1 g PO AC potassium chloride 20 mEq tablet extended release 20 meq PO DAILY atorvastatin 40 mg Tablet 40 mg PO QAM 30 Days Qty: 30 2RF metoprolol succinate 50 mg Tablet Extended Release 24 Hr 50 mg PO BID 30 Days Qty: 60 2RF lisinopril 20 mg Tablet 20 mg PO QAM 30 Days Qty: 30 2RF isosorbide mononitrate 30 mg Tablet Extended Release 24 Hr 30 mg PO QAM 30 Days Qty: 30 2RF Brilinta 90 mg Tablet 90 mg PO BID 30 Days Qty: 60 2RF buspirone 5 mg tablet 5 mg PO TID nitroglycerin 0.4 mg tablet, sublingual 0.4 mg sublingual DIRECTED Qty: 14 2RF Rx Instructions: use 1 tab under the tongue for chest pain as needed every 5 minutes--max of 3 doses Changed hydrocortisone 5 mg tablet 15 mg PO HS Qty: 0 0RF hydrocortisone 5 mg tablet 25 mg PO DAILY Qty: 0 0RF Discontinued calcium carbonate-vitamin D3 [Calcium 600 + D(3)] 600 mg(1,500mg) -200 unit tablet 1 tab PO BID Qty: 30 0RF gabapentin 300 mg capsule 300 mg PO BID gabapentin 100 mg capsule 100 mg PO HS Rx Instructions: takes 300 am/pm; extra 100mg in PM Discharge Orders: Discharge Order (Routine); Ordered 07/31/24 Ordered By: Feliberto Rinaldi Admission Data Admit Date/Time: 07/29/24 01:51 Attending Provider: Feliberto Rinaldi Admit Provider: Yaya Oseguera Primary Care Provider: Shalom Lieberman Other Providers: Yaya Oseguera; Anna Kim; Bryant Mejia; Anna Curiel; Jagjit Ruiz; Dustin Vivas; Jordy Farrell; Kael Walker; Joanie Christian; David Glass; Nam Wei; Anaya Mckeon; Gab Agrawal; Catarina Calle; Renae Estrada; Kael Nunes; Aleshia Montes; [facility]
[2024-08-01] MEDS ORDERED: DOXAZosin MESYLATE 4 MG TAB PO SCH ×2 (21:00)
== END 2024-07-31 14:20 | disposition home health service (06) | DRG 683 ==
LOC: ED 22:08 → 4W 07-29 01:51
DX: I95.9 Hypotension, unspecified; Z79.899 Other long term (current) drug therapy; Z11.52 Encounter for screening for COVID-19; D63.1 Anemia in chronic kidney disease; Z88.4 Allergy status to anesthetic agent; E27.40 Unspecified adrenocortical insufficiency; E23.0 Hypopituitarism; Z79.890 Hormone replacement therapy; D69.6 Thrombocytopenia, unspecified; F41.9 Anxiety disorder, unspecified; N18.30 Chronic kidney disease, stage 3 unspecified; N17.9 Acute kidney failure, unspecified; I12.9 Hypertensive chronic kidney disease with stage 1 through stage 4 chronic kidney disease, or unspecified chronic kidney disease; Z87.891 Personal history of nicotine dependence; Z79.52 Long term (current) use of systemic steroids; Z95.5 Presence of coronary angioplasty implant and graft; K76.89 Other specified diseases of liver; Q61.3 Polycystic kidney, unspecified; E05.20 Thyrotoxicosis with toxic multinodular goiter without thyrotoxic crisis or storm; E86.1 Hypovolemia; R73.03 Prediabetes; E78.5 Hyperlipidemia, unspecified; Z79.82 Long term (current) use of aspirin; I25.10 Atherosclerotic heart disease of native coronary artery without angina pectoris; G25.3 Myoclonus; Z85.820 Personal history of malignant melanoma of skin; G89.29 Other chronic pain; Z86.718 Personal history of other venous thrombosis and embolism; I25.2 Old myocardial infarction; R19.7 Diarrhea, unspecified; M54.50 Low back pain, unspecified; N40.0 Benign prostatic hyperplasia without lower urinary tract symptoms

== ENCOUNTER 2024-08-07 02:23 | Observation (INO) ==
[2024-08-07] MEDS: KETOROLAC 30 MG/ML VIAL IV ONE (03:33)
[2024-08-07 03:35] LABS: Basophils # (auto) 0.04 K/uL (0.00-0.20); Basophils % (auto) 0.5 %; Eosinophils # (auto) 0.54 K/uL (0.00-0.50); Eosinophils % (auto) 6.7 %; Hematocrit (blood only) 31.5 % (42.0-52.0); Hemoglobin 10.9 g/dl (14.0-18.0); Immature Granulocytes # (auto) 0.04 K/uL (0.01-0.20); Immature Granulocytes % (auto) 0.5 %; Lymphocytes # (auto) 1.99 K/uL (1.20-3.40); Lymphocytes % (auto) 24.5 %; Mean Corpuscular Hemoglobin 32.3 pg (25.0-34.0); Mean Corpuscular Hgb Conc 34.6 g/dL (32.0-36.0); Mean Corpuscular Volume 93.5 fL (80.0-100.0); Mean Platelet Volume 11.3 fL (9.4-12.4); Monocytes # (auto) 0.72 K/uL (0.11-0.59); Monocytes % (auto) 8.9 %; Neutrophils # (auto) 4.79 K/uL (1.40-6.50); Neutrophils % (auto) 58.9 %; Platelet Count 141 K/uL (130-400); RDW Coefficient of Variation 13.2 % (11.5-14.5); RDW Standard Deviation 44.9 fL (36.4-46.3); Red Blood Count 3.37 M/uL (4.70-6.10); White Blood Count 8.12 K/ul (4.8-10.8)
[2024-08-07 03:43] LABS: Albumin Globulin Ratio 1.4 (0.9-2); Albumin Level 3.5 gm/dl (3.4-5.0); BUN Creatinine Ratio 16.4 (10-20); Bilirubin,Total 0.6 mg/dl (0.2-1.0); Calcium 9.5 mg/dl (8.6-10.3); Creatinine Clr Calc Pharmacy 35.6 ml/min; Globulin 2.5 gm/dl (2.5-4.0); Potassium 3.5 mmol/L (3.5-5.1)
[2024-08-07 03:56] LABS: Troponin I High Sensitivity 87.6 pg/ml (0-20)
--- NOTE | 2024-08-07 05:01 | XRay Report ---
EXAM: XR chest 1V portable CLINICAL HISTORY: CHEST PAIN [facility] TECHNIQUE: Radiograph of chest was acquired. COMPARISON: Scan dated 2 days ago. FINDINGS: The lungs are clear and well-expanded with no pulmonary infiltrate or pleural effusion. The cardiomediastinal silhouette is within normal limits. No acute osseous abnormality. No interval change compared to prior scan. IMPRESSION: 1. No acute cardiopulmonary disease. Electronically signed by Fran Cummins 08-07-2024 05:01 AM
--- NOTE | 2024-08-07 05:27 | Emergency Department Note ---
Impression & Plan Elevated troponin, Chest pain, Spinal stenosis Admit to the [facility] ED Provider Note NAME: PUJA GROSSMAN AGE: 84 SEX: Male INFORMANT: Patient ED PROVIDER(S): Geneva Claros DO CHIEF COMPLAINT: low back pain and chest pain PLAN: Disposition: Admit to the [facility] MEDICAL DECISION MAKING: This is an 84-year-old male patient with a history of heart disease and recent stent placement along with an extensive history of spinal stenosis and opioid abuse. Patient presents to the emergency department this morning with his complaining of low back pain with spasms in his lower extremities along with significant chest discomfort. The patient's pulled me aside and had concerns that he has a history of abusing his opioid pain medications in the past. Upon me entering the patient's room for evaluation, he complained of significant chest discomfort and was immediately asking me for morphine for both his chest pain and his back pain. EKG was unremarkable for signs of ischemia but the patient did have an elevated troponin above 80 and a repeat troponin was even higher. I had an extensive conversation with the patient and his about his presentation. I discussed the case with the [facility] and they will evaluate for further inpatient care. Care/management discussed with: manager travel and [facility] Triage Nursing notes: reviewed and agree with them. Vital Signs: reviewed and remarkable for no significant abnormalities Additional History obtained from: Patient's who seems quite frustrated with the situation Chronic Medical/Social Conditions affecting care: Recent PCI with stent placement; chronic spinal stenosis of the lumbar spine Prior/ Outside/ External records reviewed: Recent admission to the hospital for coronary artery disease and PCI with stent placement Differential Diagnosis: Stent reocclusion, cardiac ischemia, cardiac dysrhythmia, drug-seeking behavior, the patient admits that he has only 1 Tylenol with codeine left. Diagnostics, independently interpreted by me: ECG: normal sinus rhythm at a rate of 63 with PACs. There are no ST segment elevations or signs of ischemia. Cardiac Monitoring: Normal sinus rhythm at a rate of 69. Imaging studies: Portable chest x-ray: No acute pulmonary infiltrates or consolidation as per my independent interpretation HPI: 84 year old Male arrives for evaluation of low back pain and chest pain. Patient's brings him to the emergency department complaining of low back pain that woke him from sleep. The patient has a history of spinal stenosis for which she is taking Tylenol with codeine. As I was entering the room, the patient was sitting in the chair clutching his chest and appeared somewhat smith in color complaining of chest pain. Patient's explained that he was here to us a couple of weeks ago and underwent PCI and had stents placed. PAST MEDICAL HISTORY: See Below, PAST SURGICAL HISTORY: See Below, SOCIAL HISTORY: See Below, HOME MEDICATIONS: See list ALLERGIES: See list VITALS: See Below PHYSICAL EXAMINATION: HEENT: Head - normocephalic and atraumatic. Pupils are equal, round, and reactive to light. Extraocular eye muscles are intact, and sclera are anicteric. Nose - moist nasal mucosa without discharge. Mouth - moist buccal mucosa. Oropharynx is nonerythematous and there is no tonsillar exudate or edema noted. Neck: Supple; no JVD, nuchal rigidity, cervical lymphadenopathy, or auscultated bruits. Heart: Regular rate and rhythm. There is a normal S1 and S2 with no murmurs, clicks, or gallops appreciated. Lungs: Clear to auscultation bilaterally with no wheezes, rales, or rhonchi. Abdomen: Soft, completely nontender, nondistended, with good bowel sounds. There are no palpable pulsatile masses or hepatosplenomegaly. There is no guarding, rigidity, or rebound noted. Extremities: No evidence of cyanosis, clubbing, or edema. There are easily palpable peripheral pulses. Skin: Smith, warm and dry with good turgor and no rashes. Back: Patient has pain with palpation over the mid thoracic and lumbar spine and pain with palpation over the paraspinous muscles of the thoracic and lumbar spine. Emergency department course: The patient was evaluated in room B-7. A complete history and physical was performed. An order was placed for continuous cardiac monitoring. Patient was in a normal sinus rhythm at a rate of 69. A twelve- lead EKG was obtained as described above. Patient was given a dose of IV Toradol for his back pain. Chest x-ray was performed. The patient told me that the original chest discomfort that he complained of had subsided. I reevaluated the patient he was more comfortable. I reviewed the results of the laboratory studies and explained that we would need to repeat the troponin since the initial 1 was elevated. Second was even more elevated. I discussed the case with the [facility] Hospitalist and they will evaluate for further inpatient care. Past Med/Surg History Problem List (Updated 08/08/24 @ 13:55 by Geneva Claros DO) Spinal stenosis (Acute) Chest pain (Acute) Elevated troponin (Acute) Chest pain Chronic pain (Acute) Isolated TSH deficiency Hyperthyroidism Back pain of lumbar region with sciatica (Acute) Anxiety about health (Acute) Ambulatory dysfunction Hypercalcemia (Acute) Adrenal insufficiency (Acute) CAD (coronary atherosclerotic disease) (Acute) Prediabetes 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 Trochanteric bursitis of right hip History of pituitary adenoma Chronic kidney disease, stage III (moderate) (Acute) Dyslipidemia Osteopenia Prostatic hypertrophy Chronic low back pain ACTH deficiency (Chronic) Panhypopituitarism (Chronic) Anemia (Chronic) 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 TORRES BPH (benign prostatic hyperplasia) IBS (irritable bowel syndrome) GERD (gastroesophageal reflux disease) History of melanoma Hearing deficit BL MCRAE Lumbar herniated disc MULTIPLE Surgical History Hx laparoscopic cholecystectomy (06/03/19) Laparoscopic Cholecystectomy Dr. 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 Status post trigger finger release History of esophagogastroduodenoscopy (EGD) 04/20/2019. MAC no issues. History of colonoscopy History of melanoma excision CHEST - W/ SKIN GRAFTING. (LEFT GROIN DONOR SITE) Family History Sister Family hx of colon cancer Father Tobacco use Coronary heart disease Mother Diverticulosis of intestine Sister Ovarian cancer Colon cancer Grandfather Cancer Aunt Cancer Uncle Cancer Grandmother (Maternal) Cancer Other No significant family history Social History Smoking Status: Former smoker Tobacco Type: Cigarettes Second Hand Exposure: No; Do You Dip or Chew Tobacco: No; Hx Alcohol Use: No Hx Substance Use: No Preferred Language: Romanian Communication Ability: Effective Visual Impairment: No Limitations Emergency Communications Dispatcher Required: No Beliefs That Will Affect Care: None Current Living Situation: Spouse Feels Safe at Home: Yes Assistive Devices: Walker and Other Allergies Allergies Allergy/AdvReac Type Severity Reaction Status Date / Time lidocaine [From Lidoderm] AdvReac Mild Itching Verified 08/03/24 12:34 Home Meds Home Medications Medication Instructions Recorded Confirmed acetaminophen 300 mg-codeine 30 mg 1 tab PO DAILY PRN Pain 08/07/24 08/07/24 tablet ascorbic acid (vitamin C) 500 mg 500 mg PO DAILY 08/07/24 08/07/24 tablet aspirin 81 mg tablet,delayed 81 mg PO DAILY 08/07/24 08/07/24 release atorvastatin 40 mg tablet 40 mg PO DAILY 08/07/24 08/07/24 bumetanide 1 mg tablet 1 mg PO DAILY 08/07/24 08/07/24 buspirone 5 mg tablet 5 mg PO TID 08/07/24 08/07/24 dicyclomine 20 mg tablet 20 mg PO TID 08/07/24 08/07/24 dutasteride 0.5 mg-tamsulosin ER 2 cap PO DAILY 08/07/24 08/07/24 0.4 mg capsule ext.release 24hr mphas hydrocortisone 5 mg tablet 15 mg PO HS 08/07/24 08/07/24 hydrocortisone 5 mg tablet 25 mg PO DAILY 08/07/24 08/07/24 hydroxyzine HCl 10 mg tablet 10 mg PO QID PRN Anxiety 08/07/24 08/07/24 isosorbide mononitrate 30 mg 30 mg PO DAILY 08/07/24 08/07/24 tablet,extended release 24 hr lisinopril 20 mg tablet 20 mg PO DAILY 08/07/24 08/07/24 magnesium 250 mg tablet 250 mg PO DAILY 08/07/24 08/07/24 methimazole 5 mg tablet 5 mg PO DAILY 08/07/24 08/07/24 metoprolol succinate 50 mg 50 mg PO BID 08/07/24 08/07/24 tablet,extended release 24 hr multivitamin 1 tab PO DAILY 08/07/24 08/07/24 nitroglycerin 0.4 mg sublingual 0.4 mg sublingual UD 08/07/24 08/07/24 tablet omeprazole 20 mg capsule,delayed 20 mg PO DAILY 08/07/24 08/07/24 release potassium chloride 20 mEq 20 meq PO DAILY 08/07/24 08/07/24 tablet,extended release sertraline 100 mg tablet 200 mg PO DAILY 08/07/24 08/07/24 ticagrelor 90 mg tablet (Brilinta) 90 mg PO BID 08/07/24 08/07/24 trazodone 150 mg tablet 150 mg PO HS 08/07/24 08/07/24 Results & Data (ED) Vital Signs Vital Signs - 24 hr 08/07/24 02:27 08/07/24 03:02 08/07/24 04:36 Temperature 36.6 C Temperature Source Temporal Artery Scan Pulse Rate 66 63 Pulse Rate [Apical] 69 Respiratory Rate 20 Respiratory Effort / Characteristics Non-Labored Spontaneous Respiratory Depth Normal Respiratory Pattern Regular Blood Pressure 134/74 Blood Pressure [Right Arm] 165/66 H Blood Pressure Mean 94 Blood Pressure Mean [Right Arm] 99 Blood Pressure Position [Right Arm] Lying Pulse Oximetry 98 100 Oxygen Delivery Method Room Air Room Air Sepsis Recent Fever Within 48 Hours No Sepsis New/Unexplained Change in Mental Status No Sepsis Action Taken by Nursing No Action Required Laboratory Data 08/08/24 06:14 08/08/24 06:14 Lab Results 08/07/24 08/07/24 Range/Units 03:02 04:32 WBC 8.12 (4.8-10.8) K/ul RBC 3.37 L (4.70-6.10) M/uL Hgb 10.9 L (14.0-18.0) g/dl Hct 31.5 L (42.0-52.0) % MCV 93.5 (80.0-100.0) fL MCH 32.3 (25.0-34.0) pg MCHC 34.6 (32.0-36.0) g/dL RDW Std Deviation 44.9 (36.4-46.3) fL RDW Coeff of Mehnaz 13.2 (11.5-14.5) % Plt Count 141 (130-400) K/uL MPV 11.3 (9.4-12.4) fL Immature Gran % (Auto) 0.5 % Neut % (Auto) 58.9 % Lymph % (Auto) 24.5 % Parke % (Auto) 8.9 % Eos % (Auto) 6.7 % Baso % (Auto) 0.5 % Neut # (Auto) 4.79 (1.40-6.50) K/uL Lymph # (Auto) 1.99 (1.20-3.40) K/uL Parke # (Auto) 0.72 H (0.11-0.59) K/uL Eos # (Auto) 0.54 H (0.00-0.50) K/uL Baso # (Auto) 0.04 (0.00-0.20) K/uL Immature Gran # (Auto) 0.04 (0.01-0.20) K/uL Sodium 144 (136-145) mmol/L Potassium 3.5 (3.5-5.1) mmol/L Chloride 109 H (98-107) mmol/L Carbon Dioxide 25 (21-32) mmol/L Anion Gap 10 (3-11) BUN 25 H (6-23) mg/dl Creatinine 1.52 H (0.6-1.4) mg/dl Est Cr Clr Drug Dosing 35.6 ml/min eGFR 45.18 BUN/Creatinine Ratio 16.4 (10-20) Glucose 92 (70-99(Fasting)) mg/dl Calcium 9.5 (8.6-10.3) mg/dl Total Bilirubin 0.6 (0.2-1.0) mg/dl AST 23 (13-39) U/L ALT 14 (7-52) U/L Alkaline Phosphatase 68 (34-104) U/L Troponin I High Sens 87.6 H* D 93.6 H* (0-20) pg/ml Total Protein 6.0 (6.0-8.3) gm/dl Albumin 3.5 (3.4-5.0) gm/dl Globulin 2.5 (2.5-4.0) gm/dl Albumin/Globulin Ratio 1.4 (0.9-2) Lipase 27 (11-82) U/L Administered Medications Acetaminophen/Codeine Phosphate (Acetaminophen W/Codeine #3 1 Tab) 1 tab PO DAILY PRN PRN Reason: Pain (5,6,7,8,9,10) Stop: 09/06/24 09:09 Last Admin: 08/07/24 21:55 Dose: 1 tab Documented By: DOMINIQUE Ascorbic Acid (Ascorbic Acid 500 Mg Tab) 500 mg PO DAILY [facility] Stop: 09/06/24 09:09 Last Admin: 08/08/24 08:12 Dose: 500 mg Documented By: Admin: 08/07/24 09:54 Dose: 500 mg Documented By: Aspirin (Aspirin 81 Mg Ectab) 81 mg PO DAILY [facility] Stop: 09/06/24 09:09 Last Admin: 08/08/24 09:51 Dose: 81 mg Documented By: Admin: 08/07/24 10:08 Dose: 81 mg Documented By: Atorvastatin Calcium (Atorvastatin 40 Mg Tab) 40 mg PO DAILY [facility] Stop: 09/06/24 09:09 Last Admin: 08/08/24 08:13 Dose: 40 mg Documented By: Admin: 08/07/24 09:54 Dose: 40 mg Documented By: Bumetanide (Bumetanide 1 Mg Tab) 1 mg PO DAILY [facility] Stop: 09/06/24 09:09 Last Admin: 08/08/24 09:51 Dose: 1 mg Documented By: Admin: 08/07/24 10:08 Dose: 1 mg Documented By: Buspirone HCl (Buspirone 5 Mg Tab) 5 mg PO TID [facility] Stop: 09/06/24 09:09 Last Admin: 08/08/24 08:10 Dose: 5 mg Documented By: Admin: 08/07/24 21:56 Dose: 5 mg Documented By: Admin: 08/07/24 16:37 Dose: 5 mg Documented By: Admin: 08/07/24 09:54 Dose: 5 mg Documented By: Dicyclomine HCl (Dicyclomine Hcl 20 Mg Tab) 20 mg PO TID [facility] Stop: 09/06/24 09:09 Last Admin: 08/08/24 08:11 Dose: 20 mg Documented By: Admin: 08/07/24 21:57 Dose: 20 mg Documented By: Admin: 08/07/24 16:37 Dose: 20 mg Documented By: Admin: 08/07/24 09:54 Dose: 20 mg Documented By: Finasteride (Finasteride 5 Mg Tab) 5 mg PO DAILY TOD Stop: 09/06/24 10:29 Last Admin: 08/08/24 08:09 Dose: 5 mg Documented By: Admin: 08/07/24 11:35 Dose: 5 mg Documented By: Hydrocortisone (Hydrocortisone 10 Mg Tab) 15 mg PO HS TOD Stop: 09/06/24 20:59 Last Admin: 08/07/24 21:56 Dose: 15 mg Documented By: DOMINIQUE Hydrocortisone (Hydrocortisone 10 Mg Tab) 25 mg PO DAILY TOD Stop: 09/06/24 09:29 Last Admin: 08/08/24 08:12 Dose: 25 mg Documented By: Admin: 08/07/24 09:53 Dose: 25 mg Documented By: Hydroxyzine HCl (Hydroxyzine Hcl 10 Mg Tab) 10 mg PO QID PRN PRN Reason: Anxiety Stop: 09/06/24 09:09 Last Admin: 08/08/24 08:10 Dose: 10 mg Documented By: Admin: 08/07/24 23:06 Dose: 10 mg Documented By: Admin: 08/07/24 16:36 Dose: 10 mg Documented By: Admin: 08/07/24 09:54 Dose: 10 mg Documented By: Isosorbide Mononitrate (Isosorbide Parke Extended Rel 30 Mg Tabcr) 30 mg PO DAILY TOD Stop: 09/06/24 09:29 Last Admin: 08/08/24 08:13 Dose: 30 mg Documented By: Admin: 08/07/24 09:54 Dose: 30 mg Documented By: Lisinopril (Lisinopril 20 Mg Tab) 20 mg PO DAILY TOD Stop: 09/06/24 09:29 Last Admin: 08/08/24 08:12 Dose: 20 mg Documented By: Admin: 08/07/24 09:54 Dose: 20 mg Documented By: Magnesium Oxide (Magnesium Oxide 400 Mg Tab) 400 mg PO DAILY TOD Stop: 09/06/24 09:59 Last Admin: 08/08/24 09:51 Dose: 400 mg Documented By: Admin: 08/07/24 10:08 Dose: 400 mg Documented By: Methimazole (Methimazole 5 Mg Tablet) 5 mg PO DAILY TOD Stop: 12/22/24 09:29 Last Admin: 08/08/24 08:09 Dose: 5 mg Documented By: Admin: 08/07/24 09:52 Dose: 5 mg Documented By: Metoprolol Succinate (Metoprolol Succ 50mg Ext Rel Tab) 50 mg PO BID TOD Stop: 09/06/24 09:09 Last Admin: 08/08/24 11:01 Dose: 50 mg Documented By: Admin: 08/07/24 21:57 Dose: 50 mg Documented By: Admin: 08/07/24 09:53 Dose: 50 mg Documented By: Miscellaneous (Remove Lidoderm Patch) 1 each N/A DAILY@2100 [facility] Stop: 09/06/24 20:59 Last Admin: 08/07/24 21:58 Dose: 1 each Documented By: DOMINIQUE Multivitamins (Multivitamin Tab) 1 tab PO QAM TOD Stop: 09/06/24 09:29 Last Admin: 08/08/24 08:13 Dose: 1 tab Documented By: Admin: 08/07/24 09:55 Dose: 1 tab Documented By: Pantoprazole Sodium (Pantoprazole 40 Mg Tab) 40 mg PO DAILY TOD Stop: 09/06/24 09:44 Last Admin: 08/08/24 09:51 Dose: 40 mg Documented By: Admin: 08/07/24 10:08 Dose: 40 mg Documented By: Potassium Chloride (Potassium Chloride Crtab 20 Meq Tabcr) 20 meq PO DAILY TOD Stop: 09/06/24 09:09 Last Admin: 08/08/24 09:54 Dose: 20 meq Documented By: Admin: 08/07/24 10:08 Dose: 20 meq Documented By: Sertraline HCl (Sertraline Hcl 100 Mg Tablet) 200 mg PO DAILY TOD Stop: 09/06/24 09:44 Last Admin: 08/08/24 08:12 Dose: 200 mg Documented By: Admin: 08/07/24 09:52 Dose: 200 mg Documented By: Tamsulosin HCl (Tamsulosin Hcl 0.4 Mg Cap) 0.8 mg PO DAILY TOD Stop: 09/06/24 10:29 Last Admin: 08/08/24 08:12 Dose: 0.8 mg Documented By: Admin: 08/07/24 15:30 Dose: 0.8 mg Documented By: LEAH Ticagrelor (Ticagrelor 90 Mg Tab) 90 mg PO BID TOD Stop: 09/06/24 09:44 Last Admin: 08/08/24 08:10 Dose: 90 mg Documented By: Admin: 08/07/24 23:05 Dose: 90 mg Documented By: Admin: 08/07/24 10:08 Dose: 90 mg Documented By: Trazodone HCl (Trazodone Hcl 50 Mg Tab) 150 mg PO HS TOD Stop: 09/06/24 20:59 Last Admin: 08/07/24 21:57 Dose: 150 mg Documented By: DOMINIQUE Discontinued Medications Acetaminophen (Ofirmev) 1,000 mg in 100 mls @ 400 mls/hr IV NOW STA Stop: 08/07/24 10:43 Last Infusion: 08/07/24 12:10 Dose: Infused Documented By: Admin: 08/07/24 11:34 Dose: 400 mls/hr Documented By: Magnesium Sulfate/Dextrose (Magnesium Sulfate / D5w) 1 gm in 100 mls @ 50 mls/hr IV ONE ONE Stop: 08/07/24 12:30 Last Infusion: 08/07/24 16:24 Dose: Infused Documented By: Admin: 08/07/24 12:15 Dose: 50 mls/hr Documented By: JAQUELINE Ketorolac Tromethamine (Ketorolac 30 Mg/Ml Vial) 30 mg IV NOW ONE Stop: 08/07/24 03:18 Last Admin: 08/07/24 03:33 Dose: 30 mg Documented By: Ketorolac Tromethamine (Ketorolac Tromethamine 15 Mg/Ml Vial) 15 mg IV NOW ONE Stop: 08/07/24 10:46 Last Admin: 08/07/24 11:34 Dose: 15 mg Documented By: Lidocaine (Lidocaine 5% 1 Patch) 1 patch TD NOW STA Stop: 08/07/24 10:31 Last Admin: 08/07/24 11:34 Dose: 1 patch Documented By: Lorazepam (Lorazepam 2 Mg/1 Ml Vial) 0.25 mg IV NOW STA Stop: 08/07/24 22:15 Last Admin: 08/07/24 23:05 Dose: 0.25 mg Documented By: MAC Morphine Sulfate (Morphine Sulfate 2 Mg/Ml Carp) 2 mg IV NOW STA Stop: 08/07/24 15:48 Last Admin: 08/07/24 16:06 Dose: 2 mg Documented By: MTM Ondansetron HCl (Ondansetron Inj 2 Mg/Ml 2 Ml Vial) 4 mg IV NOW STA Stop: 08/07/24 10:13 Last Admin: 08/07/24 10:16 Dose: 4 mg Documented By: MSG Imaging Data Radiologist's Impression: Chest X-Ray 08/07/24 03:17 EXAM: XR chest 1V portable CLINICAL HISTORY: CHEST PAIN [facility] TECHNIQUE: Radiograph of chest was acquired. COMPARISON: Scan dated 2 days ago. FINDINGS: The lungs are clear and well-expanded with no pulmonary infiltrate or pleural effusion. The cardiomediastinal silhouette is within normal limits. No acute osseous abnormality. No interval change compared to prior scan. IMPRESSION: 1. No acute cardiopulmonary disease. Electronically signed by Fran Cummins 08-07-2024 05:01 AM Discharge Plan Visit Data Chief Complaint: Back Injury/Pain Stated Complaint: BACK PAIN,MENTAL ISSUE ED Provider: Geneva Claros Discharge Problem: Elevated troponin, Chest pain, Spinal stenosis Patient Disposition: Admitted As Inpatient Discharge Instructions Interventions: ED Discharge Assessment Last Done: 08/07/24 09:10
--- NOTE | 2024-08-07 08:30 | History & Physical Report ---
Date of Service August 07, 2024 Assessment & Plan (1) Chest pain: Plan: 84-year-old male with past medical significant for CAD status post stent in June 2024, hypertension, hyperlipidemia, history of pituitary adenoma surgery, panhypopituitarism(growth hormone deficiency, ACTH deficiency, central hypogonadism, toxic multinodular goiter as per records), hyperprolactinemia as per records, chronic steroid Rx, chronic kidney disease (baseline creatinine 1.4 ), chronic anemia (baseline hemoglobin 12-13), melanoma as per records BPH, anxiety/mood disorder, history of DVT as per records, chronic back pain , past tobacco abuse who lives at home with his currently ambulating with walker comes because of back pain and chest pain. Currently chest pain is resolved. Patient has appointment with pain management on August 10 for back pain. Patient on last admission was having myoclonus and neurology thought mostly metabolic and also his gabapentin was stopped and he also saw neurology as outpatient and baclofen was prescribed but not picked it yet as per patient and . Ambulating okay in the ER. Somewhat hard of hearing. Denies any headache. No runny nose or sore throat. No cough. No fever. No shortness of breath. No nausea. No abdominal pain. Normal bowel and blood movements. Hemodynamics are okay. Multiple recent admissions initially for non-ST elevated VT status post stent on June 30 to . And again in July 08 admitted for confusion delirium possible from Vicodin. Admitted on July 10 for chest pain and patent stents on diagnostic cardiac catheterization. And again admitted on July 29 for hypotension CELI and diarrhea. Chest pain Currently resolved EKG no acute findings Recent CAD s/p stents Initial troponin 86 and repeat is 93 If troponin is trending up or symptoms come back we will start on IV heparin Will follow serial cardiac enzymes and echo N.p.o. Telemetry Cardiac consult for further recommendations Back pain Lumbar spinal stenosis Ongoing Continue home pain medications No more narcotics Has appointment pain management on August 10 CAD s/p stent Aspirin ,Brilinta, metoprolol succinate, atorvastatin CKD stage III Creatinine 1.5 around baseline Will follow labs History of velez hypopituitarism (growth hormone deficiency, ACTH deficiency, central hypogonadism, toxic multinodular goiter as per records) H/O pituitary adenoma surgery Follows with endocrinology Continue home hydrocortisone, methimazole Multicystic kidney disease and multiple hepatic cysts and CAT scan last admit Follow-up as outpatient Chronic anemia Hemoglobin 10.9 around baseline Will monitor Anxiety/mood disorder On buspirone DVT prophylaxis SCDs for now Disposition Telemetry Full code History of Present Illness Chief Complaint: Back pain and chest pain Primary Care Provider: Shalom Lieberman MD 84-year-old male with past medical significant for CAD status post stent in June 2024, hypertension, hyperlipidemia, history of pituitary adenoma surgery, panhypopituitarism(growth hormone deficiency, ACTH deficiency, central hypogonadism, toxic multinodular goiter as per records), hyperprolactinemia as per records, chronic steroid Rx, chronic kidney disease (baseline creatinine 1.4), chronic anemia (baseline hemoglobin 12-13), melanoma as per records BPH, anxiety/mood disorder, history of DVT as per records, chronic back pain , past tobacco abuse who lives at home with his currently ambulating with walker comes because of back pain and chest pain. Currently chest pain is resolved. Patient has appointment with pain management on August 10 for back pain. Patient on last admission was having myoclonus and neurology thought mostly metabolic and also his gabapentin was stopped and he also saw neurology as outpatient and baclofen was prescribed but not picked it yet as per patient and . Ambulating okay in the ER. Somewhat hard of hearing. Denies any headache. No runny nose or sore throat. No cough. No fever. No shortness of breath. No nausea. No abdominal pain. Normal bowel and blood movements. Hemodynamics are okay. Multiple recent admissions initially for non-ST elevated VT status post stent on June 30 to . And again in July 08 admitted for confusion delirium possible from Vicodin. Admitted on July 10 for chest pain and patent stents on diagnostic cardiac catheterization. And again admitted on July 29 for hypotension CELI and diarrhea. Past medical history. As mentioned above Past surgical history. Colonoscopy and EGD. Injection of lumbosacral spine. Removal of pituitary gland in 2019. S/p cardiac catheter and stent placement. Social history. . Quit smoking 1968. No alcohol use. No drug use. Family history. Daughter had breast cancer. Father had CHF. Mother had VT. Allergies Allergy/AdvReac Type Severity Reaction Status Date / Time lidocaine [From Lidoderm] AdvReac Mild Itching Verified 08/03/24 12:34 Home Medications Medication Instructions Recorded Confirmed Type acetaminophen 300 mg-codeine 30 mg 1 tab PO DAILY PRN Pain 08/07/24 08/07/24 History tablet ascorbic acid (vitamin C) 500 mg 500 mg PO DAILY 08/07/24 08/07/24 History tablet aspirin 81 mg tablet,delayed 81 mg PO DAILY 08/07/24 08/07/24 History release atorvastatin 40 mg tablet 40 mg PO DAILY 08/07/24 08/07/24 History bumetanide 1 mg tablet 1 mg PO DAILY 08/07/24 08/07/24 History buspirone 5 mg tablet 5 mg PO TID 08/07/24 08/07/24 History dicyclomine 20 mg tablet 20 mg PO TID 08/07/24 08/07/24 History dutasteride 0.5 mg-tamsulosin ER 2 cap PO DAILY 08/07/24 08/07/24 History 0.4 mg capsule ext.release 24hr mphas hydrocortisone 5 mg tablet 15 mg PO HS 08/07/24 08/07/24 History hydrocortisone 5 mg tablet 25 mg PO DAILY 08/07/24 08/07/24 History hydroxyzine HCl 10 mg tablet 10 mg PO QID PRN Anxiety 08/07/24 08/07/24 History isosorbide mononitrate 30 mg 30 mg PO DAILY 08/07/24 08/07/24 History tablet,extended release 24 hr lisinopril 20 mg tablet 20 mg PO DAILY 08/07/24 08/07/24 History magnesium 250 mg tablet 250 mg PO DAILY 08/07/24 08/07/24 History methimazole 5 mg tablet 5 mg PO DAILY 08/07/24 08/07/24 History metoprolol succinate 50 mg 50 mg PO BID 08/07/24 08/07/24 History tablet,extended release 24 hr multivitamin 1 tab PO DAILY 08/07/24 08/07/24 History nitroglycerin 0.4 mg sublingual 0.4 mg sublingual UD 08/07/24 08/07/24 History tablet omeprazole 20 mg capsule,delayed 20 mg PO DAILY 08/07/24 08/07/24 History release potassium chloride 20 mEq 20 meq PO DAILY 08/07/24 08/07/24 History tablet,extended release sertraline 100 mg tablet 200 mg PO DAILY 08/07/24 08/07/24 History ticagrelor 90 mg tablet (Brilinta) 90 mg PO BID 08/07/24 08/07/24 History trazodone 150 mg tablet 150 mg PO HS 08/07/24 08/07/24 History Past Med/Surg History Problem List (Updated 08/07/24 @ 08:32 by Zach Sears MD) Chest pain Chronic pain (Acute) Isolated TSH deficiency Hyperthyroidism Back pain of lumbar region with sciatica (Acute) Anxiety about health (Acute) Ambulatory dysfunction Hypercalcemia (Acute) Adrenal insufficiency (Acute) CAD (coronary atherosclerotic disease) (Acute) Prediabetes 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 Trochanteric bursitis of right hip History of pituitary adenoma Chronic kidney disease, stage III (moderate) (Acute) Dyslipidemia Osteopenia Prostatic hypertrophy Chronic low back pain ACTH deficiency (Chronic) Panhypopituitarism (Chronic) Anemia (Chronic) 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 TORRES BPH (benign prostatic hyperplasia) IBS (irritable bowel syndrome) GERD (gastroesophageal reflux disease) History of melanoma Hearing deficit BL MCRAE Lumbar herniated disc MULTIPLE Surgical History Hx laparoscopic cholecystectomy (06/03/19) Laparoscopic Cholecystectomy Dr. 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 Status post trigger finger release History of esophagogastroduodenoscopy (EGD) 04/20/2019. MAC no issues. History of colonoscopy History of melanoma excision CHEST - W/ SKIN GRAFTING. (LEFT GROIN DONOR SITE) Family History Sister Family hx of colon cancer Father Tobacco use Coronary heart disease Mother Diverticulosis of intestine Sister Ovarian cancer Colon cancer Grandfather Cancer Aunt Cancer Uncle Cancer Grandmother (Maternal) Cancer Other No significant family history Social History Smoking Status: Former smoker Tobacco Type: Cigarettes Second Hand Exposure: No; Do You Dip or Chew Tobacco: No; Hx Alcohol Use: No Hx Substance Use: No Preferred Language: Arabic Communication Ability: Effective Visual Impairment: No Limitations Biomedical Equipment Tech Required: No Beliefs That Will Affect Care: None Current Living Situation: Spouse Feels Safe at Home: Yes Assistive Devices: None Review of Systems Review of Systems: All systems reviewed & are unremarkable except as noted in HPI & below Physical Exam Physical Exam: General- Not in distress Head- atraumatic Eyes- PERRL. ENT- oropharynx clear Neck- supple, no JVD. Lungs- clear to auscultation no wheezing or crackles Heart- regular rate and rhythm; no murmur, no gallop. Abdomen- normal bowel sounds, soft, nontender, no distension. Extremities- no pretibial edema, no erythemna seen Neuro- alert, oriented ; PERRL, no facial palsy; no dysarthria; movs extremities Results & Data Results & Data Vital Signs (Past 12 Hours) Vital Signs Temp Pulse Pulse Resp BP BP Pulse Ox 08/07/24 07:01 66 18 155/70 H 97 08/07/24 04:55 56 L 08/07/24 04:36 69 20 165/66 H 100 08/07/24 03:02 63 08/07/24 02:27 36.6 C 66 134/74 98 O2 Del Method 08/07/24 07:01 Room Air 08/07/24 04:55 08/07/24 04:36 Room Air 08/07/24 03:02 08/07/24 02:27 Room Air Diagnostic Findings Laboratory Results WBC 8.12 K/ul (4.8-10.8) 08/07/24 03:02 RBC 3.37 M/uL (4.70-6.10) L 08/07/24 03:02 Hgb 10.9 g/dl (14.0-18.0) L 08/07/24 03:02 Hct 31.5 % (42.0-52.0) L 08/07/24 03:02 MCV 93.5 fL (80.0-100.0) 08/07/24 03:02 MCH 32.3 pg (25.0-34.0) 08/07/24 03:02 MCHC 34.6 g/dL (32.0-36.0) 08/07/24 03:02 RDW Std Deviation 44.9 fL (36.4-46.3) 08/07/24 03:02 RDW Coeff of Mehnaz 13.2 % (11.5-14.5) 08/07/24 03:02 Plt Count 141 K/uL (130-400) 08/07/24 03:02 MPV 11.3 fL (9.4-12.4) 08/07/24 03:02 Immature Gran % (Auto) 0.5 % 08/07/24 03:02 Neut % (Auto) 58.9 % 08/07/24 03:02 Lymph % (Auto) 24.5 % 08/07/24 03:02 [place] % (Auto) 8.9 % 08/07/24 03:02 Eos % (Auto) 6.7 % 08/07/24 03:02 Baso % (Auto) 0.5 % 08/07/24 03:02 Neut # (Auto) 4.79 K/uL (1.40-6.50) 08/07/24 03:02 Lymph # (Auto) 1.99 K/uL (1.20-3.40) 08/07/24 03:02 [place] # (Auto) 0.72 K/uL (0.11-0.59) H 08/07/24 03:02 Eos # (Auto) 0.54 K/uL (0.00-0.50) H 08/07/24 03:02 Baso # (Auto) 0.04 K/uL (0.00-0.20) 08/07/24 03:02 Immature Gran # (Auto) 0.04 K/uL (0.01-0.20) 08/07/24 03:02 Sodium 144 mmol/L (136-145) 08/07/24 03:02 Potassium 3.5 mmol/L (3.5-5.1) 08/07/24 03:02 Chloride 109 mmol/L (98-107) H 08/07/24 03:02 Carbon Dioxide 25 mmol/L (21-32) 08/07/24 03:02 Anion Gap 10 (3-11) 08/07/24 03:02 BUN 25 mg/dl (6-23) H 08/07/24 03:02 Creatinine 1.52 mg/dl (0.6-1.4) H 08/07/24 03:02 Est Cr Clr Drug Dosing 35.6 ml/min 08/07/24 03:02 eGFR 45.18 08/07/24 03:02 BUN/Creatinine Ratio 16.4 (10-20) 08/07/24 03:02 Glucose 92 mg/dl (70-99(Fasting)) 08/07/24 03:02 Calcium 9.5 mg/dl (8.6-10.3) 08/07/24 03:02 Total Bilirubin 0.6 mg/dl (0.2-1.0) 08/07/24 03:02 AST 23 U/L (13-39) 08/07/24 03:02 ALT 14 U/L (7-52) 08/07/24 03:02 Alkaline Phosphatase 68 U/L (34-104) 08/07/24 03:02 Troponin I High Sens 93.6 pg/ml (0-20) H* 08/07/24 04:32 Total Protein 6.0 gm/dl (6.0-8.3) 08/07/24 03:02 Albumin 3.5 gm/dl (3.4-5.0) 08/07/24 03:02 Globulin 2.5 gm/dl (2.5-4.0) 08/07/24 03:02 Albumin/Globulin Ratio 1.4 (0.9-2) 08/07/24 03:02 Lipase 27 U/L (11-82) 08/07/24 03:02 Impressions Chest X-Ray 08/07/24 03:17 EXAM: XR chest 1V portable CLINICAL HISTORY: CHEST PAIN [facility] TECHNIQUE: Radiograph of chest was acquired. COMPARISON: Scan dated 2 days ago. FINDINGS: The lungs are clear and well-expanded with no pulmonary infiltrate or pleural effusion. The cardiomediastinal silhouette is within normal limits. No acute osseous abnormality. No interval change compared to prior scan. IMPRESSION: 1. No acute cardiopulmonary disease. Electronically signed by Fran Cummins 08-07-2024 05:01 AM ECG Additional Comments: ECG sinus rhythm with PACs at a rate of 63. QTc 466. Code Status & VTE Plan VTE Prophylaxis Plan VTE Prophylaxis will be ordered: Yes
[2024-08-07] MEDS ORDERED: DUTASTERIDE PO SCH (09:10)
[2024-08-07] MEDS ORDERED: POLYETHYLENE (MIRALAX) 17 GM PACK PO PRN (09:10)
[2024-08-07] MEDS ORDERED: ACETAMINOPHEN 325 MG TAB PO PRN (09:10)
[2024-08-07] MEDS ORDERED: TAMSULOSIN PO SCH (09:10)
[2024-08-07] MEDS ORDERED: NITROGLYCERIN SL 0.4 MG/TAB TAB SL PRN (09:10)
[2024-08-07] MEDS ORDERED: [UNRECOGNIZED DRUG - OTHER] PO SCH (09:10)
[2024-08-07 09:46] LABS: Basophils # (auto) 0.06 K/uL (0.00-0.20); Basophils % (auto) 0.7 %; Eosinophils # (auto) 0.46 K/uL (0.00-0.50); Eosinophils % (auto) 5.4 %; Hemoglobin 11.1 g/dl (14.0-18.0); Immature Granulocytes # (auto) 0.05 K/uL (0.01-0.20); Immature Granulocytes % (auto) 0.6 %; Lymphocytes # (auto) 2.19 K/uL (1.20-3.40); Lymphocytes % (auto) 25.8 %; Mean Corpuscular Hemoglobin 32.1 pg (25.0-34.0); Mean Corpuscular Hgb Conc 34.7 g/dL (32.0-36.0); Mean Corpuscular Volume 92.5 fL (80.0-100.0); Mean Platelet Volume 11.2 fL (9.4-12.4); Monocytes # (auto) 0.71 K/uL (0.11-0.59); Monocytes % (auto) 8.4 %; Neutrophils # (auto) 5.03 K/uL (1.40-6.50); Neutrophils % (auto) 59.1 %; Platelet Count 133 K/uL (130-400); RDW Coefficient of Variation 13.2 % (11.5-14.5); RDW Standard Deviation 43.8 fL (36.4-46.3); Red Blood Count 3.46 M/uL (4.70-6.10)
[2024-08-07] MEDS: SERTRALINE HCL 100 MG TABLET PO SCH (09:52)
[2024-08-07] MEDS: methIMAzole 5 MG TABLET PO SCH (09:52)
[2024-08-07] MEDS: HYDROCORTISONE 10 MG TAB PO SCH ×2 (09:53→21:56)
[2024-08-07] MEDS: METOPROLOL SUCC 50MG EXT REL TAB PO SCH (09:53)
[2024-08-07] MEDS: ASCORBIC ACID 500 MG TAB PO SCH (09:54)
[2024-08-07] MEDS: hydrOXYzine HCl 10 MG TAB PO PRN (09:54)
[2024-08-07] MEDS: lisinopril 20 MG TAB PO SCH (09:54)
[2024-08-07] MEDS: ATORVASTATIN 40 MG TAB PO SCH (09:54)
[2024-08-07] MEDS: DICYCLOMINE HCL 20 MG TAB PO SCH (09:54)
[2024-08-07] MEDS: busPIRone 5 MG TAB PO SCH (09:54)
[2024-08-07] MEDS: ISOSORBIDE MONO EXTENDED REL 30 MG TABCR PO SCH (09:54)
[2024-08-07] MEDS: MULTIVITAMIN TAB PO SCH (09:55)
[2024-08-07 10:01] LABS: BUN Creatinine Ratio 15.7 (10-20); Calcium 9.9 mg/dl (8.6-10.3); Creatinine Clr Calc Pharmacy 34.1 ml/min; Magnesium 1.6 mg/dl (1.7-2.4); Potassium 3.8 mmol/L (3.5-5.1)
--- NOTE | 2024-08-07 10:02 | Cardiology Consultation ---
Date of Consultation August 07, 2024 Assessment & Plan (1) Chest pain: * Although the patient's troponin is mildly elevated, it is actually less than it was on the admissions in June when he had undergone coronary angiography. At the time of my assessment, patient nauseousness, complaining of uncontrolled low back pain radiating to his lower extremities. * Symptoms do not seem reminiscent of his previous angina. * Zofran 4 mg IV administered at 10:18 AM, I counseled his nurse that once he settles down from the nauseousness and back pain standpoint, priority would be to make sure he takes his aspirin and Brilinta as he had yet to take these this morning. * Planning on repeat EKG once patient feeling little better from a back pain and nauseousness standpoint. (2) Chronic pain: (3) Back pain of lumbar region with sciatica: * As noted. Patient has had multiple recent issues with changes in his medications including withdrawal of opioid medications with concerns that it was making his mental status worse, and he had apparently been on gabapentin and is not on that anymore. I discussed his case with the hospitalist service, patient to be reassessed with regards to his acute needs. He has an appointment for an outpatient pain management consultation next week. (4) Adrenal insufficiency: * Continue chronic hydrocortisone dose once able to tolerate orals medication * History of Present Illness Attending Physician: Parish Cox MD History of Present Illness Mr Wilkerson is an 84 year old male seen in cardiology consultation per the request of Dr Hammonds for the evaluation of chest pain. Patient reported chest discomfort last evening. At present, denies any chest discomfort. He was nauseous on my arrival and vomiting. Notes unremitting low back and leg pain. He does not feel his symptoms are reminiscent of his previous myocardial infarction symptoms from June 2024. The patient's recent cardiac history dates back to 06/30/2024 1 was felt that he had a late presentation for an inferior myocardial infarction. Initial high- sensitivity troponin at time of presentation 06/30/2024 was 7182 PG per mL. The patient underwent cardiac catheterization at that time and underwent percutaneous coronary mention with 3 overlapping drug-eluting stents to the proximal to mid right coronary artery which was felt to be the culprit as well as a single drug-eluting stent to the mid circumflex coronary artery. 10 days later on 07/10/2024 he presented again to the emergency department with recurrent chest discomfort with findings of transient ST segment elevation inferior leads prompting repeat emergent cardiac catheterization. Widely patent right coronary artery and circumflex stents are observed with overall findings of stable multivessel disease otherwise including a 50-60% mid LAD stenosis, 30 to 40% ostial and 40% distal circumflex stenosis, 40 to 50% distal RCA prior to the posterior descending artery and a 60 to 70% ostial PDA. There is a medium sized jailed RV marginal branch with 90% stenosis that was felt to possibly be the culprit for his symptoms and EKG changes for which medical management was recommended as not amenable to PCI. Residual branch vessel disease in an obtuse marginal also noted. Medical management recommended. The patient has been back to the hospital on two occasions in the meantime. He was discharged from the emergency room on 07/23/2024 with concerns of anxiety at that time. He was also admitted in mid July with hypotension attributed to diarrhea he was noted to have myoclonic jerking movements as well for which neurology had seen him in consultation. Problem list: ASCVD June 2024 late presentation inferolateral STEMI. Catheterization with multivessel coronary artery disease, culprit proximal RCA stenosis status post PCI of the RCA with 3 overlapping drug-eluting stents Status post PCI of the mid left circumflex with 1 drug-eluting stent. Residual intermediate stenosis of the mid LAD noted on repeat cardiac catheterization 07/10/2024 as well as branch vessel disease as noted above. Hypertension Dyslipidemia CKD Malignant melanoma Restless leg syndrome BPH GERD Tortuous esophagus Irritable bowel syndrome Osteoarthritis Lumbar spine injection Pituitary surgery Family History: Positive for CAD in mother and father. Mother with CO in her 70s. Father with CHF. Daughter with breast cancer at the age of 33. Social history: Remote tobacco user, quit in 1968. No smokeless tobacco use. No significant alcohol use. Lives in [place] with . Allergies Allergy/AdvReac Type Severity Reaction Status Date / Time lidocaine [From Lidoderm] AdvReac Mild Itching Verified 08/03/24 12:34 Home Medications Medication Instructions Recorded Confirmed Type acetaminophen 300 mg-codeine 30 mg 1 tab PO DAILY PRN Pain 08/07/24 08/07/24 History tablet ascorbic acid (vitamin C) 500 mg 500 mg PO DAILY 08/07/24 08/07/24 History tablet aspirin 81 mg tablet,delayed 81 mg PO DAILY 08/07/24 08/07/24 History release atorvastatin 40 mg tablet 40 mg PO DAILY 08/07/24 08/07/24 History bumetanide 1 mg tablet 1 mg PO DAILY 08/07/24 08/07/24 History buspirone 5 mg tablet 5 mg PO TID 08/07/24 08/07/24 History dicyclomine 20 mg tablet 20 mg PO TID 08/07/24 08/07/24 History dutasteride 0.5 mg-tamsulosin ER 2 cap PO DAILY 08/07/24 08/07/24 History 0.4 mg capsule ext.release 24hr mphas hydrocortisone 5 mg tablet 15 mg PO HS 08/07/24 08/07/24 History hydrocortisone 5 mg tablet 25 mg PO DAILY 08/07/24 08/07/24 History hydroxyzine HCl 10 mg tablet 10 mg PO QID PRN Anxiety 08/07/24 08/07/24 History isosorbide mononitrate 30 mg 30 mg PO DAILY 08/07/24 08/07/24 History tablet,extended release 24 hr lisinopril 20 mg tablet 20 mg PO DAILY 08/07/24 08/07/24 History magnesium 250 mg tablet 250 mg PO DAILY 08/07/24 08/07/24 History methimazole 5 mg tablet 5 mg PO DAILY 08/07/24 08/07/24 History metoprolol succinate 50 mg 50 mg PO BID 08/07/24 08/07/24 History tablet,extended release 24 hr multivitamin 1 tab PO DAILY 08/07/24 08/07/24 History nitroglycerin 0.4 mg sublingual 0.4 mg sublingual UD 08/07/24 08/07/24 History tablet omeprazole 20 mg capsule,delayed 20 mg PO DAILY 08/07/24 08/07/24 History release potassium chloride 20 mEq 20 meq PO DAILY 08/07/24 08/07/24 History tablet,extended release sertraline 100 mg tablet 200 mg PO DAILY 08/07/24 08/07/24 History ticagrelor 90 mg tablet (Brilinta) 90 mg PO BID 08/07/24 08/07/24 History trazodone 150 mg tablet 150 mg PO HS 08/07/24 08/07/24 History Patient History Medical History Vitamin D deficiency History of DVT (deep vein thrombosis) Blind left eye Chronic cholecystitis Multiple renal cysts REPORTS ONLY HAS 1 FUNCTIONING KIDNEY - FOLLOWS W/ DR. TORRES BPH (benign prostatic hyperplasia) IBS (irritable bowel syndrome) GERD (gastroesophageal reflux disease) History of melanoma Hearing deficit BL MCRAE Lumbar herniated disc MULTIPLE Surgical History Hx laparoscopic cholecystectomy (06/03/19) Laparoscopic Cholecystectomy Dr. 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 Status post trigger finger release History of esophagogastroduodenoscopy (EGD) 04/20/2019. MAC no issues. History of colonoscopy History of melanoma excision CHEST - W/ SKIN GRAFTING. (LEFT GROIN DONOR SITE) Family History Sister Family hx of colon cancer Father Tobacco use Coronary heart disease Mother Diverticulosis of intestine Sister Ovarian cancer Colon cancer Grandfather Cancer Aunt Cancer Uncle Cancer Grandmother (Maternal) Cancer Other No significant family history Social History Smoking Status: Former smoker Tobacco Type: Cigarettes Second Hand Exposure: No; Do You Dip or Chew Tobacco: No; Hx Alcohol Use: No Hx Substance Use: No Preferred Language: Welsh Communication Ability: Effective Visual Impairment: No Limitations Technical Information Specialist Required: No Beliefs That Will Affect Care: None Current Living Situation: Spouse Feels Safe at Home: Yes Assistive Devices: None Review of Systems Cardiovascular: Additional Comments: Denies chest discomfort during my evaluation Gastrointestinal: Nausea Musculoskeletal: Describes low back pain with radicular symptoms to his legs/thighs bilaterally Results & Data Vital Signs (Past 12 Hours) Vital Signs Temp Pulse Pulse Resp BP BP Pulse Ox 08/07/24 08:58 69 08/07/24 08:18 67 20 156/83 H 08/07/24 07:01 66 18 155/70 H 97 08/07/24 04:55 56 L 08/07/24 04:36 69 20 165/66 H 100 08/07/24 03:02 63 08/07/24 02:27 36.6 C 66 134/74 98 O2 Del Method 08/07/24 08:58 08/07/24 08:18 08/07/24 07:01 Room Air 08/07/24 04:55 08/07/24 04:36 Room Air 08/07/24 03:02 08/07/24 02:27 Room Air Laboratory Results Cardiac Enzymes 08/07/24 08/07/24 08/07/24 Range/Units 03:02 04:32 09:25 AST 23 (13-39) U/L Troponin I High Sens 87.6 H* D 93.6 H* 113.8 H* D (0-20) pg/ml CBC 08/07/24 08/07/24 Range/Units 03:02 09:25 WBC 8.12 8.50 (4.8-10.8) K/ul RBC 3.37 L 3.46 L (4.70-6.10) M/uL Hgb 10.9 L 11.1 L (14.0-18.0) g/dl Hct 31.5 L 32.0 L (42.0-52.0) % Plt Count 141 133 (130-400) K/uL Neut # (Auto) 4.79 5.03 (1.40-6.50) K/uL Lymph # (Auto) 1.99 2.19 (1.20-3.40) K/uL [place] # (Auto) 0.72 H 0.71 H (0.11-0.59) K/uL Eos # (Auto) 0.54 H 0.46 (0.00-0.50) K/uL Baso # (Auto) 0.04 0.06 (0.00-0.20) K/uL Comprehensive Metabolic Panel 08/07/24 08/07/24 Range/Units 03:02 09:25 Sodium 144 138 (136-145) mmol/L Potassium 3.5 3.8 (3.5-5.1) mmol/L Chloride 109 H 104 (98-107) mmol/L Carbon Dioxide 25 25 (21-32) mmol/L BUN 25 H 25 H (6-23) mg/dl Creatinine 1.52 H 1.59 H (0.6-1.4) mg/dl Glucose 92 89 (70-99(Fasting)) mg/dl Calcium 9.5 9.9 (8.6-10.3) mg/dl AST 23 (13-39) U/L ALT 14 (7-52) U/L Alkaline Phosphatase 68 (34-104) U/L Total Protein 6.0 (6.0-8.3) gm/dl Albumin 3.5 (3.4-5.0) gm/dl Intake and Output 08/06/24 08/07/24 08/07/24 22:59 06:59 14:59 Other: Weight 78 kg Weight Measurement Method Built in [facility] Diagnostic Findings EKG performed 08/07/2024 at 3 AM and interpreted independently: Sinus rhythm at 63 bpm with premature atrial contractions, compared to the previous performed on 08/05/2024 with the previously noted inferior posterior infarct pattern no longer present. Bedside echocardiogram performed today 08/07/2024: Very subtle residual basal inferior wall motion abnormality, normal LVEF. Compared to the previous from 07/10/2024, the size of the inferior wall motion abnormality is less prominent on the present study. (2) Chronic pain Chronic pain type: other chronic pain Qualified Code(s): G89.29 - Other chronic pain
[2024-08-07] MEDS: TICAGRELOR 90 MG TAB PO SCH (10:08)
[2024-08-07] MEDS: POTASSIUM CHLORIDE CRTAB 20 MEQ TABCR PO SCH (10:08)
[2024-08-07] MEDS: ASPIRIN 81 MG ECTAB PO SCH (10:08)
[2024-08-07] MEDS: PANTOprazole 40 MG TAB PO SCH (10:08)
[2024-08-07] MEDS: MAGNESIUM OXIDE 400 MG TAB PO SCH (10:08)
[2024-08-07] MEDS: BUMETANIDE 1 MG TAB PO SCH (10:08)
[2024-08-07 10:09] LABS: Troponin I High Sensitivity 113.8 pg/ml (0-20)
[2024-08-07] MEDS ORDERED: ONDANSETRON INJ 2 MG/ML 2 ML VIAL IV PRN (10:15)
[2024-08-07] MEDS: ONDANSETRON INJ 2 MG/ML 2 ML VIAL IV STA (10:16)
[2024-08-07] MEDS: LIDOCAINE 5% 1 PATCH TD STA (11:34)
[2024-08-07] MEDS: ACETAMINOPHEN 1,000 MG/100 ML VIAL IV STA (11:34)
[2024-08-07] MEDS: KETOROLAC TROMETHAMINE 15 MG/ML VIAL IV ONE (11:34)
[2024-08-07] MEDS: FINASTERIDE 5 MG TAB PO SCH (11:35)
[2024-08-07] MEDS: MAGNESIUM SULFATE / D5W 1 GM/100 ML BAG IV ONE (12:15)
[2024-08-07] MEDS: TAMSULOSIN HCL 0.4 MG CAP PO SCH (15:30)
--- NOTE | 2024-08-07 15:41 | Electrocardiogram Report ---
Test Reason : Blood Pressure : */* mmHG Vent. Rate : 63 BPM Atrial Rate : 63 BPM P-R Int : 166 ms QRS Dur : 90 ms QT Int : 456 ms P-R-T Axes : 28 86 81 degrees QTcB Int : 466 ms Sinus rhythm with Premature atrial complexes Otherwise normal ECG When compared with ECG of 05-Aug-2024 10:05, Premature atrial complexes are now Present QRS axis Shifted right Criteria for Inferior-posterior infarct are no longer Present T wave inversion no longer evident in Inferior leads Confirmed by Bartolo Albright ([id number]) on 08/07/2024 3:40:58 PM Referred By: REFERRED SELF Confirmed By: Bartolo Albright
[2024-08-07] MEDS: MoRPHine SULFATE 2 MG/ML CARP IV STA (16:06)
[2024-08-07] MEDS: ACETAMINOPHEN W/CODEINE #3 1 TAB PO PRN (21:55)
[2024-08-07] MEDS: traZODone HCL 50 MG TAB PO SCH (21:57)
[2024-08-07] MEDS: LORazepam 2 MG/1 ML VIAL IV STA (23:05)
--- OUTSIDE RECORDS SUMMARY | 2024-08-08 00:33 | External Medical Summary | Summary of Care ---
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 Name Role Phone Noelle Duron MD Primary Care Provider [phone] Reason for Visit * Reason Onset Date Comments Hospital Follow-Up Medication Administration 08/06/2024 Flu an d/or Pneumo Inj Encounter Details Date Type Department Care Team (Late st Contact Info) Description 08/06/2024 8:00 AM EST Office Visit Neurology [facility] [address] [facility] [place] [address] Anna Kim PA-C [address] [facility] [place] [address] Spinal stenosis of lumbar region, unspecified whether neurogenic claudication present*; Need for prophylactic vaccination and inoculation against influenza Allergies No known active allergiesdocumented as of this encounter (statuses as of 08/06/2024) Medications hydrOXYzine HCl 25 MG tablet Take 10 mg by mouth as needed. 9 Active Ferrous Sulfate (IRON) 325 (65 Fe) MG TABS Take by mouth. Active Magnesium 250 MG Tablet Take 1 Tablet by mouth in the morning. Active Multiple Vitamins-Mineral s (MULTIVITAMIN ADULTS 50+) TABS Take by mouth. Active Aspirin 81 MG Oral Tablet Delayed Release Take 1 Tablet by mouth in the morning. Active Testosterone 20.25 MG/ACT (1.62%) Transdermal Gel (AndroGel Pump) Apply topically to affected area daily . 1 Active Vitamin C 500 MG Oral Tablet (Ascorbic Acid) Take 1 Tablet by mouth in the morning. Active Hydrocortisone 5 MG Oral Tablet (Cortef)Indicati ons:History of pituitary adenoma Take by mouth 1 Tablet in the morning AND 1 Tablet at noon AND 1 Tablet before bedtime. 540 Tablet 1 2 Active Caltrate 600+D3 Soft 600-800 MG-UNIT Oral Tablet Chewable (Calcium Carb-Cholecalcif brittani) Active Klor-Con M20 20 MEQ Oral Tablet Extended Release 2 Active Dutasteride-Tams ulosin HCl 0.5-0.4 MG Oral Capsule Take 1 Capsule by mouth at bedtime. 90 Capsule 3 2 Active Doxazosin Mesylate 4 MG Oral Tablet (Cardura) Take 2 Tablets by mouth at bedtime. Active methIMAzole 5 MG Oral Tablet (Tapazole) Take 1 Tablet by mouth in the morning. 4 Active traZODone HCl 150 MG Oral Tablet (Desyrel) TAKE 1 TABLET IN THE EVENING 90 Tablet 3 4 Active Dicyclomine HCl 20 MG Oral Tablet (Bentyl) Take 1 Tablet by mouth in the morning and 1 Tablet at noon and 1 Tablet before bedtime. 270 Tablet 3 4 Active Sertraline HCl 100 MG Oral Tablet (Zoloft)Indicati ons:Anxiety Take 2 by mouth daily in the morning 180 Tablet 3 4 Active Atorvastatin Calcium 40 MG Oral Tablet (Lipitor) Take 1 Tablet by mouth in the morning. 4 Active Ticagrelor 90 MG Oral Tablet (Brilinta) Take 1 Tablet by mouth in the morning and 1 Tablet before bedtime. 4 Active Isosorbide Mononitrate ER 30 MG Oral Tablet Extended Release 24 Hour (Imdur) Take 1 Tablet by mouth in the morning. 4 Active Lisinopril 20 MG Oral Tablet (Prinivil) Take 1 Tablet by mouth in the morning. 4 Active Metoprolol Succinate ER 50 MG Oral Tablet Extended Release 24 Hour (toPROL XL) Take 1 Tablet by mouth in the morning and 1 Tablet before bedtime. 4 Active Potassium Chloride ER 20 MEQ Oral Tablet Extended Release Take 1 Tablet by mouth in the morning. 4 Active busPIRone HCl 5 MG Oral Tablet (Buspar)Indicati ons:Anxiety Take 1 Tablet by mouth in the morning and 1 Tablet at noon and 1 Tablet before bedtime. 90 Tablet 5 4 Active Omeprazole 20 MG Oral Capsule Delayed Release (PriLOSEC) Take 1 Capsule by mouth 2 times a day 30 minutes before morning and evening meals. 180 Capsule 4 Active Bumetanide 1 MG Oral Tablet (Bumex) Take 1 Tablet by mouth in the morning. 90 Tablet 3 4 Active Acetaminophen-Co deine 300-30 MG Oral Tablet 1 Tablet. 4 Active Nitroglycerin 0.4 MG Sublingual Tablet Sublingual (Nitrostat) 1 Tablet. 4 Active Baclofen 10 MG Oral Tablet (Lioresal) 1 tab three times daily 90 Tablet 2 4 Active Gabapentin 300 MG Oral Capsule (Neurontin)Indic ations:Lumbar radiculopathy,Ne urogenic claudication Take 1 Capsule by mouth in the morning and 1 Capsule before bedtime. 180 Capsule 1 4 08/06/20 24 Discontin ued(Patie nt preferenc e/discont inuation) Gabapentin 100 MG Oral Capsule (Neurontin)Indic ations:Restless legs syndrome TAKE 1 CAPSULE WITH 300 MG DOSE FOR A TOTAL OF 400 MG NIGHTLY 90 Capsule 1 4 08/06/20 24 Discontin ued(Patie nt preferenc e/discont inuation) documented as of this encounter (statuses as of 08/06/2024) Active Problems Problem Noted Date Diagnosed Date Chronic kidney disease, stage 3a 05/29/2021 Overview: Per CKD protocol History of pituitary adenoma 08/30/2020 MEDICATION USE AGREEMENT 05/31/2020 History of malignant melanoma 05/31/2020 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 05/31/2020 Hypotestosteronemia 05/31/2020 Hyperthyroidism 05/31/2020 Chronic sinusitis 10/22/2005 Overview (12/09/2007): [facility] Pulsatile tinnitus 07/10/2005 Overview (12/09/2007): [facility] HTN, goal below 140/90 BPH with obstruction/lower urinary tract symptom s Overview (10/22/2006): Dr Fuentes Osteoarthrosis, unspecified whether generalized or localized, other specified sites Restless leg syndrome Irritable bowel syndrome documented as of this encounter (statuses as of 08/06/2024) Resolved Problems Problem Noted Date Diagnosed Date Resolved Date Hyperprolactinemia 04/05/2023 4 Pituitary mass 05/31/2020 08/30/2020 Pain in limb 05/12/2007 05/31/2020 SUPERFIC PHLEBITIS-LEG, LEFT LOWER LATERAL 05/12/2007 05/12/2007 SUPERFIC PHLEBITIS-LEG, RIGHT LOWER MEDIAL 05/12/2007 05/31/2020 Headache 11/06/2005 05/31/2020 Overview (12/07/2015): [facility] ICD-10 update of inactive term Dyslipidemia, goal to be determined 06/26/2021 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 Overview (10/22/2006): follows with Dr Anne documented as of this encounter (statuses as of 08/06/2024) Immunizations Name Administration Dates Next Due COVID-19 mRNA, LNP-s, No Pre serve, 2-Dose Series ([place]) 03/30/2022,06/19/2021,11/11/2020,10/21 COVID-19, MRNA-LNP, 24-25, P R, 30MCG/0.3ML, IM, 12YRS AND ABOVE (Pfizer-Comirnaty) 05/25/2024 COVID-19, MRNA-LNP, PF, 30 M CG/0.3 mL, 12 YRS AND ABOVE, IM (PFIZER-Comirnaty) 11/25/2023 Covid-19, Mrna, Lnp-s, Pf, B ivalent, 30 Mcg, IM, 12 yrs and above ([place]) 06/15/2022 H1N1 2009 Influenza, IM 10/27/2009 Pneumococcal Conjugate Vacci ne, 20-valent ([id number]) 06/07/2022 Pneumococcal Polysaccharide PPV23 (Pneumovax) 10/22/2006 Season Influenza, Quad, PF, Adjuvanted, 65+ Yrs, IM (FLUAD) 06/20/2023 Seasonal Influenza Vac., MDV , IM, 0.5 mL (Fluzone) 06/25/2011,07/04/2010,06/27/2009,06/28,07/17/2007 Seasonal Influenza, High Dos e, Trivalent, PF, IM (Fluzone HD) 08/06/2024 Seasonal Influenza, PF, 6 M & above, IM , (FluLaval or Fluzone) 05/31/2020 Seasonal Influenza, Quadriva lent Hd (Fluzone Hd) 06/07/2022,06/07/2021 TD - Tetanus/Diptheria (ADULT) 10/22/2006 TDAP (age 10 and older)(Boostrix) 06/07/2021 Varicella Zoster Vaccine (Adult) 02/26/2007 Zoster Vaccine Recombinant (Shingrix) 08/30/2018 ,02/27/2018 documented as of this encounter Social History Tobacco Use Types Packs/Day Years Used Date Smoking Tobacco: Former Cigarettes Passive Smoke Exposure: Never Smokeless Tobacco: Never Comments:quit in 1968 Alcohol Use Standard Drinks/Week Comments Not Currently 0 (1 standard drink = 0.6 oz pur e alcohol) PHQ-2 Answer Date Recorded PHQ Adult Total Score 0 03/08/2023 Hunger Vital Sign Answer Date Recorded Within the past 12 months, y ou worried that your food would run out before you got the money to buy more. Never true 02/26/20 24 Within the past 12 months, t he food you bought just didn't last and you didn't have money to get more. Never true 02/26/2024 Childcare Answer Date Recorded Do you feel overwhelmed with taking care of a child, family member or friend? No 02/26/2024 Does your family need help f inding childcare? (Household - for ages 0-17 years) Not on file 02/26/2024 Clothing Answer Date Recorded Have you been unable to get clothing when it was really needed? No 02/26/2024 Is your family able to get c lothes or diapers when needed? (Household - for ages 0-17 years) Not on file 02/26/2024 Personal Safety Answer Date Recorded Do you feel unsafe or have concerns for your saf ety? No 02/26/2024 Do you have concerns for you r family's safety? (Household - for ages 0-17 years) Not on file 02/26/2024 Utilities Answer Date Recorded Do you have trouble paying y our heating, water, or electric bill? No 02/26/2024 Is your family able to pay t he heat, water, or electric bill? (Household - for ages 0-17 years) Not on file 02/26/2024 Does your family have access to good internet? (Household - for ages 0-17 years) Not on file 02/26/2024 Employment Status Answer Date Recorded Are you unemployed or without regular income? No 02/26/2024 Does the household have a re gular source of income? (Household - for ages 0-17 years) Not on file 02/26/2024 Social Connections Answer Date Recorded How often do you feel lonely or isolated from th ose around you? Never 02/26/2024 Financial Resource Strain Answer Date R ecorded Do you have any trouble payi ng for your medications, or do you think you might in the future? No 02/26/2024 Does your family have troubl e paying for medicine? (Household - for ages 0-17 years) Not on file 02/26/2024 Transportation Needs Answer Date Record ed READ ONLY Do you have troubl e getting a ride to medical visits or work? Never True 02/26/2024 Does your family have a hard time getting a ride to doctors visits? (Household - for ages 0-17 years) Not on file 02/26/2024 Has lack of transportation k ept you from medical appointments, meetings, work, or from getting things needed for daily living? Check all that apply. (Adult - for ages 18 years and over) Not on file 02/26/2024 Do you (or your family) have trouble finding or paying for a ride (transportation)? (Household - for ages 0-17 years) Not on file 02/26/2024 Housing Stability Answer Date Recorded Do you currently live in a s helter or have no steady place to sleep at night? No 02/26/2024 READ ONLY Do you think you a re at risk of becoming homeless? No 02/26/2024 Does your family worry about paying for your home or becoming homeless? (Household - for ages 0-17 years) Not on file 0 02/26/2024 Are you homeless or worried that you might be in the future? (Adult - for ages 18 years and over) Not on file Are you (or your family) emerson eless or worried that you might be in the future? (Household - for ages 0-17 years) Not on file Food Insecurity Answer Date Recorded Do you need food for this week? No 02/26/2024 Are you able to get enough f ood for your family? (Household - for ages 0-17 years) Not on file 02/26/2024 Does your family need food t his week? (Household - for ages 0-17 years) Not on file 02/26/2024 Do you always have enough fo od for your family? (Household - for ages 0-17 years) Not on file 02/26/2024 Sex and Gender Information Value Date Recorded Sex Assigned at Male 01/09/2022 12:25 PM EDT Legal Sex Male 5:04 AM EST Gender Identity Male 01/09/2022 12:25 PM EDT Sexual Orientation Straight 01/09/2022 12 :25 PM EDT documented as of this encounter Last Filed Vital Signs Vital Sign Reading Time Taken Comments Blood Pressure 122/66 08/06/2024 8:07 AM EST Pulse 69 08/06/2024 8:07 AM EST Temperature 36.6 C (97.8 F) 08/06/2024 8:07 AM ES T Respiratory Rate 16 08/06/2024 8:07 AM EST Oxygen Saturation 99% 08/06/2024 8:07 AM EST Inhaled Oxygen Concentration - - Weight 77.7 kg (171 lb 6.4 oz) 08/06/2024 8:07 A M EST Height - - Body Mass Index 26.85 08/04/2024 11:01 AM EST documented in this encounter Patient Instructions * Patient Instructions* Madhuri Barbour, MED ASSIST - 08/06/2024 8:32 AM EST ~~PATIENT INSTRUCTIONS FOR FLU SHOT~~ Possible side effects of influenza vaccine, (flu shot), are usually mild and include: 1. Soreness or redness at injection site 2. Low grade fever 3. Body aches You may use Tylenol/Acetaminophen as needed for these symptoms. LET YOUR DOCTOR KNOW IMMEDIATELY IF YOU HAVE DIFFICULTY BREATHING OR SWALLOWING, EXPERIENCE ITCHINGOF FEET OR HANDS, HAVE SWELLING OF EYES, FACE OR INSIDE OF NOSE. documented in this encounter Progress Notes * Madhuri Barbour MED ASSIST - 08/06/2024 8:32 AM EST PRE - ADMINISTRATION DOCUMENTATION Are you experiencing any cold symptoms or fever? No Have you had Guillain-[place] Syndrome (an illness that causes paralysis) within the last 6 weeks? No Have you had the flu shot in the past? YES Have you ever had a reaction to the flu shot? No HAI Graevs, 08/06/2024 8:32 AM Immunization Administration Documentation Time Out Procedure Performed: Yes Patient Identified (Ask Name/Date of ): Yes Does the patient have a fever greater than 101 degrees today? No Patient allergic to latex? No VFC Stock: No Immunization(s) verified: Yes, Immunization Name: Flu, VIS Sheet(s) given: Yes Verified Side and Site: Yes Verified Shot(s) with Parent(s)/Patient: Yes * Anna Kim PA-C - 08/06/2024 8:06 AM EST HISTORY & PHYSICAL EXAMINATION - NEUROLOGY Name: Kai Wilkerson Date: 08/06/2024 Time: 8:06 AM Referring Provider: Self Chief Complaint: Chief Complaint Patient presents with Hospital Follow-Up This is a 84 year old right handed gentleman returns today for follow up for myoclonic jerks. HPI & Source of HPI The patient and spouse was the historian, and they are reliable. He was seen at [facility] 07/29/24 for myoclonus, as witnessed during the encounter, likely multifactorial from metabolic causes. His medications were held known to cause myoclonus such as gabapentin. Spinal stenosis can also be contributing. He does seem to have some voluntary control/movements can be distracted which explains why they are worse at night/when falling asleep. Would continue supportive care to correct his metabolic derangements and suspect this will improve. No specific concern for seizure as there is no loss of consciousness and his exam is nonfocal otherwise. He is here today because he thinks he is having withdrawal symptoms from being taken off codeine. His gabapentin was also stopped in the hospital and may be causing some issues also. However the spasms as he reports happen when he gets sharp pain in his back. He hums and sings to himself to help distract from the pain. He is not currently driving due to the pain. He does take his own medications and does some of the bill paying some of the bills are paid on direct withdrawal. He is seeing pain management on the and has seen Dr Isaacs regarding surgery but does not really think he wants surgery. Denies CP, SOB, abdominal pain, N,V, no falls no issues with sleeping What was the mini mental exam score? 28 What is today's date? 0 19 What is today's year? 1 What is the month? 1 What day is today? 1 What season is it? 1 What is the name of this hospital/clinic? 1 What floor are we on? 1 What town/city are we in? 1 What county are we in? 1 What state are we in? 1 Did the patient repeat ball? 1 Did the patient repeat flag? 1 Did the patient repeat tree? 1 Did the patient respond D? 1 Did the patient respond L? 1 Did the patient respond R? 1 Did the patient respond O? 1 Did the patient respond W? 1 Did the patient respond ball? 1 Did the patient respond flag? 1 Did the patient respond tree? 0 Show the patient a watch and ask what it is. 1 Show the patient a pencil and ask what it is. 1 Ask the patient to repeat No ifs, ands or buts. 1 Patient takes paper in hand 1 Patient folds paper in half [address] paper on the floor 1 Hold card "Close eyes". Ask pt. to read and do what it says 1 Give pt. paper and ask to write a sentence. 1 Show pt. drawing of intersecting pentagons. Ask pt. to draw 1 Patient Active Problem List Diagnosis HTN, goal below 140/90 BPH with obstruction/lower urinary tract symptoms Osteoarthrosis, unspecified whether generalized or localized, other specified sites Restless leg syndrome Irritable bowel syndrome Chronic sinusitis Pulsatile tinnitus MEDICATION USE AGREEMENT History of malignant melanoma Blindness of left eye with normal vision in contralateral eye Hypotestosteronemia Hyperthyroidism History of pituitary adenoma Chronic kidney disease, stage 3a (HCC) Family History Problem Relation Name Age of Onset Heart Disorder Mother [place] - 70's Heart Disorder Father chf - 70's Breast Cancer Daughter 33 treated with surgery. chemo and radiation Medications: Are you taking your medications? yes Current Outpatient Medications Medication Sig Dispense Refill Baclofen 10 MG Oral Tablet (Lioresal) 1 tab three times daily 90 Tablet 2 hydrOXYzine HCl 25 MG tablet Take 10 mg by mouth as needed. (Patient not taking: Reported on 08/04/2024) Ferrous Sulfate (IRON) 325 (65 Fe) MG TABS Take by mouth. Magnesium 250 MG Tablet Take 1 Tablet by mouth in the morning. Multiple Vitamins-Minerals (MULTIVITAMIN ADULTS 50+) TABS Take by mouth. Aspirin 81 MG Oral Tablet Delayed Release Take 1 Tablet by mouth in the morning. Testosterone 20.25 MG/ACT (1.62%) Transdermal Gel (AndroGel Pump) Apply topically to affected area daily . Vitamin C 500 MG Oral Tablet (Ascorbic Acid) Take 1 Tablet by mouth in the morning. Hydrocortisone 5 MG Oral Tablet (Cortef) Take by mouth 1 Tablet in the morning AND 1 Tablet at noonAND 1 Tablet before bedtime. 540 Tablet 1 Caltrate 600+D3 Soft 600-800 MG-UNIT Oral Tablet Chewable (Calcium Carb-Cholecalciferol) Klor-Con M20 20 MEQ Oral Tablet Extended Release Dutasteride-Tamsulosin HCl 0.5-0.4 MG Oral Capsule Take 1 Capsule by mouth at bedtime. 90 Capsule 3 Doxazosin Mesylate 4 MG Oral Tablet (Cardura) Take 2 Tablets by mouth at bedtime. methIMAzole 5 MG Oral Tablet (Tapazole) Take 1 Tablet by mouth in the morning. traZODone HCl 150 MG Oral Tablet (Desyrel) TAKE 1 TABLET IN THE EVENING 90 Tablet 3 Dicyclomine HCl 20 MG Oral Tablet (Bentyl) Take 1 Tablet by mouth in the morning and 1 Tablet at noon and 1 Tablet before bedtime. 270 Tablet 3 Sertraline HCl 100 MG Oral Tablet (Zoloft) Take 2 by mouth daily in the morning 180 Tablet 3 Atorvastatin Calcium 40 MG Oral Tablet (Lipitor) Take 1 Tablet by mouth in the morning. Ticagrelor 90 MG Oral Tablet (Brilinta) Take 1 Tablet by mouth in the morning and 1 Tablet before bedtime. Isosorbide Mononitrate ER 30 MG Oral Tablet Extended Release 24 Hour (Imdur) Take 1 Tablet by mouthin the morning. Lisinopril 20 MG Oral Tablet (Prinivil) Take 1 Tablet by mouth in the morning. Metoprolol Succinate ER 50 MG Oral Tablet Extended Release 24 Hour (toPROL XL) Take 1 Tablet by mouth in the morning and 1 Tablet before bedtime. Potassium Chloride ER 20 MEQ Oral Tablet Extended Release Take 1 Tablet by mouth in the morning. busPIRone HCl 5 MG Oral Tablet (Buspar) Take 1 Tablet by mouth in the morning and 1 Tablet at noon and 1 Tablet before bedtime. 90 Tablet 5 Omeprazole 20 MG Oral Capsule Delayed Release (PriLOSEC) Take 1 Capsule by mouth 2 times a day 30 minutes before morning and evening meals. 180 Capsule 0 Bumetanide 1 MG Oral Tablet (Bumex) Take 1 Tablet by mouth in the morning. 90 Tablet 3 Acetaminophen-Codeine 300-30 MG Oral Tablet 1 Tablet. Nitroglycerin 0.4 MG Sublingual Tablet Sublingual (Nitrostat) 1 Tablet. No current facility-administered medications for this visit. Review of patient's allergies indicates: No Known Allergies Review of Systems: A total number of 10 systems were reviewed pertinent negative and positives not addressed in HPI are listed in the following review. Physical Exam: Constitutional: BP 122/66 | Pulse 69 | Temp 36.6 C (97.8 F) (Tympanic) | Resp 16 | Wt 77.7 kg (171 lb 6.4 oz) | SpO2 99% | BMI 26.85 kg/m | BSA 1.92 m , appearance nourished and healthy Ears, Nose, Mouth and Throat: mucous membranes moist, no injection and skin normal, eyes normal Cardiovascular: normal S-1 and S-2 and regular rate and rhythm Respiratory: clear to auscultation (CTA) and no rales, ronchi or wheeze Musculoskeletal: no peripheral edema Skin: normal and intact Eyes: extraocular muscles intact (EOMI) NEUROLOGIC EXAMINATION: Mental status: Alert and interactive Oriented to person Speech fluent with no evidence of aphasia Cranial Nerves Normal findings for Cranial Nerves II - XII Coordination: rapid alternating movements are intact: Bilateral, on [id number], no reaching or resting tremorno cogwheeling, pain related jerking of body, once talking Gait/Stance: Posture abnormal: Kyphosis/osteoporosis. Gait abnormal: forward leaning using walker, tandem steadygait. Motor: Negative for pronator drift of out stretched arms with eyes closed. Strength: Normal - 5/5 all extremities LABORATORY: Recent labs reviewed Review of prior Studies: MRI L spine- Multilevel degenerative changes resulting in varying degrees of spinal canal stenosis and neural foraminal narrowing as detailed above. Overall appearance is grossly stable compared to 06/20/2021. No new disc herniation or acute pathology. Polycystic kidneys. Impression: Kai Wilkerson is a 84 year old gentleman with a history of back pain and muscle spasms. His neurologic examination today reveals no new focal deficit. The history and examination are suggestive of diagnosis/problem list. Testing and Referrals ordered: none ICD-10-CM 1. Spinal stenosis of lumbar region, unspecified whether neurogenic claudication present M48.061 2. Need for prophylactic vaccination and inoculation against influenza Z23 Return in 6 months Start baclofen 10 mg (1 tab) TID Follow with pain mgt for any adjustment or treatment may benefit from injections or pain pump as some point Continue to use walker for stability PCP for medical management Call with questions concerns Medical Decision Making (determined by lowest of 2 of 3 elements): The medical decision making element of the number and complexity of problems addressed included at least 1 or more chronic illnesses with exacerbation, progression, or side effects of treatment (level 4). The medical decision making element of risk of complications, morbidity, and mortality of patient management is moderate (level 4) due to prescription drug management (moderate risk). The medical decision making element of the amount and complexity of data reviewed and analyzed included an independent interpretation of a test (level 4 at least). When 2 of 3 reach level 4, then this element is considered extensive (level 5). I personally spent a total of 30 minutes. This time was for a new office or established visit and was on the same calendar day. and This time was the total spent on the evaluation, interpretation, and documentation. Education / Consultation - Topics covered as I spent 20 minutes, which is greater than 50% of this visit, counseling the patient on: Diagnostic Results Prognosis Importance of compliance with chosen treatment options Risk factor reductions Patient and family education Consulted with physician: Bryant Mejia MD was available for general supervision. Copy of note sent to PCP and Referring Provider. Total time of visit: 30 minutes. Anna Kim PA-C Neurology [facility] [address] [place] [address] [place] [id number] 08/06/2024 8:06 AM documented in this encounter Nursing Notes * Madhuri Barbour MED ASSIST - 08/06/2024 8:06 AM EST Chief Complaint Patient presents with Hospital Follow-Up documented in this encounter Plan of Treatment Upcoming Encounters Date Type Department Care Team (Late st Contact Info) Description 09/28/2024 1:00 PM EST Office Visit [facility] [address] [place] [address] Shalom Lieberman MD [facility] [place] [address] Health Maintenance Due Date Last Done Comments Adult Wellness Visit 03/08/2024 03/08/2023, 03/07/2022, 02/21/2021 Depression Screening 03/08/2024 03/08/2023 GFR 07/01/2024 12/31/2023, 09/16, 12/17/2022, Additional history exists COVID-19 Vaccine ( season) 2024 05/25/2024, 11/25/2023, 06/20/2023, Additional history exists CKD HGB USE SMARTSET 65597 09/25/202409/25, 06/27/2022, 12/29/2021, Additional history exists CKD PHOS USE SMARTSET 48309 09/25/202409/16, 06/27/2022, 03/07/2022 Albumin/Creatinine Ratio 12/30/2024 12/31/2023, 04/11/2022 DTap/Tdap Vaccines (2 - Td or Tdap) 06/07/2031 06/07/2021, 10/22/2006, 10/22/2006 Zoster Vaccines Completed 08/30/2018, 02/14, 01/28/2018, Additional history exists Pneumococcal Vaccine: 65+ Years Completed 06/07/2022, 09/23/2015, 10/22/2006 Influenza Vaccine (FLU shot) Completed , 06/20/2023, 06/07/2022, Additional history exists HPV (Gardasil) Vaccine Aged Out No lo nger eligible based on patient's age to complete this topic Hepatitis B Vaccine Aged Out No longe r eligible based on patient's age to complete this topic MENINGOCOCCAL (MENACTRA/MENVEO) Aged Out No longer eligible based on patient's age to complete this topic documented as of this encounter Medical Devices Not on filedocumented as of this encounter Visit Diagnoses Diagnosis Spinal stenosis of lumbar region, unspecified whether neurogenic claudication present- Primary Need for prophylactic vaccination and inoculation against influenza documented in this encounter 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
[2024-08-08 07:01] LABS: Hematocrit (blood only) 28.1 % (42.0-52.0); Hemoglobin 9.8 g/dl (14.0-18.0); Mean Corpuscular Hemoglobin 32.8 pg (25.0-34.0); Mean Corpuscular Hgb Conc 34.9 g/dL (32.0-36.0); Mean Platelet Volume 11.3 fL (9.4-12.4); Platelet Count 112 K/uL (130-400); RDW Coefficient of Variation 13.1 % (11.5-14.5); Red Blood Count 2.99 M/uL (4.70-6.10); White Blood Count 6.38 K/ul (4.8-10.8)
[2024-08-08 07:37] LABS: BUN Creatinine Ratio 16.6 (10-20); Calcium 8.6 mg/dl (8.6-10.3); Creatinine Clr Calc Pharmacy 33.2 ml/min; Potassium 4.3 mmol/L (3.5-5.1)
[2024-08-08 07:45] LABS: Troponin I High Sensitivity 72.9 pg/ml (0-20)
--- NOTE | 2024-08-08 10:18 | Cardiology Progress Note ---
Date of Service August 08, 2024 Assessment & Plan (1) Chest pain: Plan: * Although the patient's troponin is mildly elevated, it is actually less than it was on the admissions in June when he had undergone coronary angiography * Symptoms do not seem reminiscent of his previous angina. * Repeat EKG performed today 08/08/2024 and reviewed/interpreted independently reveals sinus bradycardia 56 bpm with age-indeterminate inferior infarct pattern, Q waves in the inferior leads III and aVF, with T wave inversions, stable findings compared to previous historical EKGs since his recent RCA intervention last month. * Echocardiogram performed 08/07/2024 revealed stable findings, small basal inferior wall motion abnormality, normal LVEF, overall improved compared to the previous performed on 07/10/2024 * Thus far, cardiac workup felt to be reassuring. * Advance diet as tolerated. Continue previous cardiac medications including dual antiplatelet therapy with aspirin and Brilinta. * From a back pain standpoint, patient subjectively states he feels like he notes benefit with the addition of the lidocaine patch. * No further cardiac testing felt to be indicated at present. (2) Chronic pain: (3) Back pain of lumbar region with sciatica: Plan: * As noted. Patient has had multiple recent issues with changes in his medications including withdrawal of opioid medications with concerns that it was making his mental status worse, and he had apparently been on gabapentin and is not on that anymore. I discussed his case with the hospitalist service, patient to be reassessed with regards to his acute needs. He has an appointment for an outpatient pain management consultation next week. (4) Adrenal insufficiency: Plan: * Continue chronic hydrocortisone dose once able to tolerate orals medication * Admission and Anticipated Discharge Date Admission Date: August 07, 2024 Subjective Patient seen and cardiology follow-up. He was resting comfortably at the time of my arrival. No ongoing nauseousness. Chest discomfort resolved. Back/leg pain controlled with lidocaine patch in place. Telemetry reveals sinus bradycardia in the 50s. Physical Exam Physical Exam: General: no acute distress and stated age Eyes: conjunctiva are pink and non-injected, sclera clear Neck: normal jugular venous pulse, no hepatojugular reflux Chest: normal shape and normal respiratory effort Lungs: clear to auscultation and percussion Cardiac Exam: - regular heart sounds, no murmurs, rubs, or gallops, no jugular venous distention Abdomen: abdomen soft, non-tender, no abnormal masses and no hepatosplenomegaly Musculoskeletal: no gait disturbance, no weakness Extremities: no edema and no cyanosis Neuro:awake, conversant, follows commands, no focal motor deficits Results & Data Vital Signs (Past 12 Hours) Vital Signs Temp Pulse Pulse Resp BP Pulse Ox O2 Del Method 08/08/24 08:01 53 L 08/08/24 07:46 37.3 C 58 L 20 166/71 H 95 Room Air 08/08/24 04:11 36.6 C 57 L 20 124/67 93 Room Air 08/08/24 00:13 36.8 C 59 L 20 112/60 95 Room Air 08/08/24 00:00 57 L Laboratory Results Cardiac Enzymes 08/08/24 Range/Units 06:14 Troponin I High Sens 72.9 H* D (0-20) pg/ml CBC 08/08/24 Range/Units 06:14 WBC 6.38 (4.8-10.8) K/ul RBC 2.99 L (4.70-6.10) M/uL Hgb 9.8 L (14.0-18.0) g/dl Hct 28.1 L (42.0-52.0) % Plt Count 112 L (130-400) K/uL Comprehensive Metabolic Panel 08/08/24 Range/Units 06:14 Sodium 141 (136-145) mmol/L Potassium 4.3 (3.5-5.1) mmol/L Chloride 107 (98-107) mmol/L Carbon Dioxide 25 (21-32) mmol/L BUN 27 H (6-23) mg/dl Creatinine 1.63 H (0.6-1.4) mg/dl Glucose 82 (70-99(Fasting)) mg/dl Calcium 8.6 (8.6-10.3) mg/dl Intake and Output 08/07/24 08/08/24 08/08/24 22:59 06:59 14:59 Intake Total 100 / 200 Balance 100 / 200 Intake: IV 100 / 200 Magnesium Sulfate / D5w 1 gm In 100 / 100 100 ml @ 50 mls/hr IV ONE ONE Rx#:[id number] Other: Other Intake Source npo sips Weight 78.5 kg Weight Measurement Method Built in [facility] (2) Chronic pain Chronic pain type: other chronic pain Qualified Code(s): G89.29 - Other chronic pain
[2024-08-08 12:00] VITALS: RESP 18
--- NOTE | 2024-08-08 12:14 | Electrocardiogram Report ---
Test Reason : Blood Pressure : */* mmHG Vent. Rate : 56 BPM Atrial Rate : 56 BPM P-R Int : 172 ms QRS Dur : 94 ms QT Int : 474 ms P-R-T Axes : 24 -26 -25 degrees QTcB Int : 457 ms Sinus bradycardia possible Inferior infarct , age undetermined Abnormal ECG When compared with ECG of 07-Aug-2024 03:00, Premature atrial complexes are no longer Present T wave inversion now evident in Inferior leads Confirmed by Xander Mae ([id number]) on 08/08/2024 12:13:40 PM Referred By: REFERRED SELF Confirmed By: Xander Mae
[2024-08-08] MEDS ORDERED: LORazepam 2 MG/1 ML VIAL IV STA (18:52)
[2024-08-08 19:35] VITALS: BP 128/72; PULSE 62; TEMP 97.5; O2SAT 95
--- NOTE | 2024-08-08 19:44 | Discharge Summary ---
Date of Service August 08, 2024 Admission HPI Per Admitting Provider 84-year-old male with past medical significant for CAD status post stent in June 2024, hypertension, hyperlipidemia, history of pituitary adenoma surgery, panhypopituitarism(growth hormone deficiency, ACTH deficiency, central hypogonadism, toxic multinodular goiter as per records), hyperprolactinemia as per records, chronic steroid Rx, chronic kidney disease (baseline creatinine 1.4), chronic anemia (baseline hemoglobin 12-13), melanoma as per records BPH, anxiety/mood disorder, history of DVT as per records, chronic back pain , past tobacco abuse who lives at home with his currently ambulating with walker comes because of back pain and chest pain. Currently chest pain is resolved. Patient has appointment with pain management on August 10 for back pain. Patient on last admission was having myoclonus and neurology thought mostly metabolic and also his gabapentin was stopped and he also saw neurology as outpatient and baclofen was prescribed but not picked it yet as per patient and . Ambulating okay in the ER. Somewhat hard of hearing. Denies any headache. No runny nose or sore throat. No cough. No fever. No shortness of breath. No nausea. No abdominal pain. Normal bowel and blood movements. Hemodynamics are okay. Multiple recent admissions initially for non-ST elevated CT status post stent on June 30 to . And again in July 08 admitted for confusion delirium possible from Vicodin. Admitted on July 10 for chest pain and patent stents on diagnostic cardiac catheterization. And again admitted on July 29 for hypotension CELI and diarrhea. Past medical history. As mentioned above Past surgical history. Colonoscopy and EGD. Injection of lumbosacral spine. Removal of pituitary gland in 2019. S/p cardiac catheter and stent placement. Social history. . Quit smoking 1968. No alcohol use. No drug use. Family history. Daughter had breast cancer. Father had CHF. Mother had CT. Admission Exam Per Admitting Provider General- Not in distress Head- atraumatic Eyes- PERRL. ENT- oropharynx clear Neck- supple, no JVD. Lungs- clear to auscultation no wheezing or crackles Heart- regular rate and rhythm; no murmur, no gallop. Abdomen- normal bowel sounds, soft, nontender, no distension. Extremities- no pretibial edema, no erythemna seen Neuro- alert, oriented ; PERRL, no facial palsy; no dysarthria; movs extremities Principal Diagnosis Back pain, chest pain Discharge Exam General- WD/WN elderly M , Not in distress Head- atraumatic Eyes- EOMI, PERRL. ENT- oropharynx clear Neck- supple, no JVD. Lungs- clear to auscultation no wheezing or crackles Heart- regular rate and rhythm; no murmur, no gallop. Abdomen- normal bowel sounds, soft, nontender, no distension. Extremities- no pretibial edema, no erythema seen Neuro- alert, oriented ; PERRL, no facial palsy; no dysarthria; moves extremities Discharge Data Allergies Allergy/AdvReac Type Severity Reaction Status Date / Time lidocaine [From Lidoderm] AdvReac Mild Itching Verified 08/03/24 12:34 Consultations 08/07/24 05:24 ED Decision to Admit Stat 08/07/24 09:10 Consult Cardiology Routine Hospital Course (1) Chest pain: 84-year-old male with past medical significant for CAD status post stent in June 2024, hypertension, hyperlipidemia, history of pituitary adenoma surgery, panhypopituitarism(growth hormone deficiency, ACTH deficiency, central hypogonadism, toxic multinodular goiter as per records), hyperprolactinemia as per records, chronic steroid Rx, chronic kidney disease (baseline creatinine 1.4), chronic anemia (baseline hemoglobin 12-13), melanoma as per records BPH, anxiety/mood disorder, history of DVT as per records, chronic back pain , past tobacco abuse who lives at home with his currently ambulating with walker comes because of back pain and chest pain. Currently chest pain is resolved. Patient has appointment with pain management on August 10 for back pain. Patient on last admission was having myoclonus and neurology thought mostly metabolic and also his gabapentin was stopped and he also saw neurology as outpatient and baclofen was prescribed but not picked it yet as per patient and . Ambulating okay in the ER. Somewhat hard of hearing. Denies any headache. No runny nose or sore throat. No cough. No fever. No shortness of breath. No nausea. No abdominal pain. Normal bowel and blood movements. Hemodynamics are okay. Multiple recent admissions initially for non-ST elevated CT status post stent on June 30 to . And again in July 08 admitted for confusion delirium possible from Vicodin. Admitted on July 10 for chest pain and patent stents on diagnostic cardiac catheterization. And again admitted on July 29 for hypotension CELI and diarrhea. Chest pain Currently resolved EKG no acute findings Recent CAD s/p stents Initial troponin 86 and repeat is 93 If troponin is trending up or symptoms come back we will start on IV heparin Will follow serial cardiac enzymes and echo Telemetry Cardiac consult for further recommendations Per cardiology: * Although the patient's troponin is mildly elevated, it is actually less than it was on the admissions in June when he had undergone coronary angiography * Symptoms do not seem reminiscent of his previous angina. * Repeat EKG performed today 08/08/2024 and reviewed/interpreted independently reveals sinus bradycardia 56 bpm with age-indeterminate inferior infarct pattern, Q waves in the inferior leads III and aVF, with T wave inversions, stable findings compared to previous historical EKGs since his recent RCA intervention last month. * Echocardiogram performed 08/07/2024 revealed stable findings, small basal inferior wall motion abnormality, normal LVEF, overall improved compared to the previous performed on 07/10/2024 * Thus far, cardiac workup felt to be reassuring. * Continue previous cardiac medications including dual antiplatelet therapy with aspirin and Brilinta. * No further cardiac testing felt to be indicated at present. Pt is feeling well today, chest pain free and wishes to be discharged home. Met with pt and his in the room earlier and at that time plan was that pt would be discharged tomorrow. However, it seems that pt was under impression that he would be leaving today and is upset about the idea of discharge tomorrow. Patient's returned to the hospital this evening and pt will be released to her care. Back pain Lumbar spinal stenosis Ongoing Continue home pain medications, Tylenol 3#, add lidocaine patch - seems pt is benefiting from that Has appointment w/ pain management on August 10 CAD s/p stent Aspirin ,Brilinta, metoprolol succinate, atorvastatin CKD stage III Creatinine 1.5 around baseline Will follow labs History of velez hypopituitarism (growth hormone deficiency, ACTH deficiency, central hypogonadism, toxic multinodular goiter as per records) H/O pituitary adenoma surgery Follows with endocrinology Continue home hydrocortisone, methimazole Multicystic kidney disease and multiple hepatic cysts and CAT scan last admit Follow-up as outpatient Chronic anemia Hemoglobin 10.9 around baseline Will monitor Anxiety/mood disorder On buspirone, zoloft, prn hydroxyzine Total Time Total Time Spent Total Time Spent (In Minutes): 40 Discharge Plan Discharge Items Patient Disposition: Home - Home Health Services Reason For Visit: BACK PAIN, CHEST PAIN Discharge Diagnosis: Back pain, chest pain Activity: Per Instructions section Non-emergency contact: Primary Care Provider and Specialist Call non-emergency contact if: you have any medication questions and your symptoms worsen Follow-up/Referrals: Shalom Lieberman MD [Primary Care Provider] - Diet: Regular Addtl Attending Provider Instructions: Follow up with your primary care doctor and pain management. For pain, take Tylenol #3 as needed as prescribed; also recommend using lidocaine patches - these you can obtain over the counter, often under the name [email or web address]. Pending Studies at Discharge: No Stand-Alone Forms: My BO.LT, Smoking Cessation Medications and DC Order Prescriptions: New acetaminophen-codeine 300-30 mg Tablet 1 tab PO DAILY PRN (Reason: pain) Qty: 10 0RF Continued atorvastatin 40 mg tablet 40 mg PO DAILY buspirone 5 mg tablet 5 mg PO TID metoprolol succinate 50 mg tablet extended release 24 hr 50 mg PO BID lisinopril 20 mg tablet 20 mg PO DAILY isosorbide mononitrate 30 mg tablet extended release 24 hr 30 mg PO DAILY sertraline 100 mg tablet 200 mg PO DAILY aspirin 81 mg Tablet,Delayed Release (Dr/Ec) 81 mg PO DAILY dicyclomine 20 mg tablet 20 mg PO TID trazodone 150 mg tablet 150 mg PO HS nitroglycerin 0.4 mg tablet, sublingual 0.4 mg sublingual UD Rx Instructions: q5min prn chest pain x3 methimazole 5 mg tablet 5 mg PO DAILY omeprazole 20 mg capsule,delayed release(DR/EC) 20 mg PO DAILY bumetanide 1 mg tablet 1 mg PO DAILY Brilinta 90 mg tablet 90 mg PO BID potassium chloride 20 mEq tablet extended release 20 meq PO DAILY multivitamin Tablet 1 tab PO DAILY hydrocortisone 5 mg Tablet 15 mg PO HS hydrocortisone 5 mg Tablet 25 mg PO DAILY ascorbic acid (vitamin C) 500 mg Tablet 500 mg PO DAILY magnesium 250 mg Tablet 250 mg PO DAILY hydroxyzine HCl 10 mg Tablet 10 mg PO QID PRN (Reason: Anxiety) dutasteride-tamsulosin 0.5-0.4 mg Capsule, Er Multiphase 24 Hr 2 cap PO DAILY Discontinued acetaminophen-codeine 300-30 mg tablet 1 tab PO DAILY PRN (Reason: Pain) Admission Data Admit Date/Time: 08/07/24 06:25 Attending Provider: Parish Cox Admit Provider: Zach Sears Primary Care Provider: Shalom Lieberman Other Providers: Zach Sears; Carlos Gaytan
== END 2024-08-08 19:57 | disposition home health service (06) ==
LOC: EDINP 02:23 → ED 02:23 → 2W 09:10

== ENCOUNTER 2024-08-10 12:10 | Observation (INO) ==
[2024-08-10 13:15] LABS: Basophils # (auto) 0.07 K/uL (0.00-0.20); Basophils % (auto) 0.7 %; Eosinophils # (auto) 0.45 K/uL (0.00-0.50); Eosinophils % (auto) 4.8 %; Hematocrit (blood only) 32.4 % (42.0-52.0); Hemoglobin 11.5 g/dl (14.0-18.0); Immature Granulocytes # (auto) 0.03 K/uL (0.01-0.20); Immature Granulocytes % (auto) 0.3 %; Lymphocytes # (auto) 2.58 K/uL (1.20-3.40); Lymphocytes % (auto) 27.4 %; Mean Corpuscular Hemoglobin 33.1 pg (25.0-34.0); Mean Corpuscular Hgb Conc 35.5 g/dL (32.0-36.0); Mean Corpuscular Volume 93.4 fL (80.0-100.0); Mean Platelet Volume 11.6 fL (9.4-12.4); Monocytes % (auto) 5.3 %; Neutrophils # (auto) 5.79 K/uL (1.40-6.50); Neutrophils % (auto) 61.5 %; Platelet Count 155 K/uL (130-400); RDW Coefficient of Variation 13.4 % (11.5-14.5); Red Blood Count 3.47 M/uL (4.70-6.10); White Blood Count 9.42 K/ul (4.8-10.8)
--- NOTE | 2024-08-10 13:32 | XRay Report ---
XR chest 1V portable CLINICAL HISTORY: Chest pain, nonspecific COMPARISON STUDY: Chest CT July 28, 2024. Chest radiograph August 07, 2024. FINDINGS: Mild elevation of the right hemidiaphragm is unchanged. Lungs are clear. There is no pneumo thorax or pleural effusion. Cardiac size is normal. Mediastinal contours are normal. There is no evid ence for pulmonary edema. IMPRESSION: No acute cardiopulmonary findings. No change in appearance of the chest. ACT 112: Negative or not required by law. Electronically signed by: Leo Mcfarland M.D. 08/10/2024 1:31 PM
[2024-08-10 13:35] LABS: Albumin Globulin Ratio 1.5 (0.9-2); Albumin Level 3.6 gm/dl (3.4-5.0); BUN Creatinine Ratio 13.7 (10-20); Bilirubin,Total 0.5 mg/dl (0.2-1.0); Creatinine Clr Calc Pharmacy 38.4 ml/min; Globulin 2.4 gm/dl (2.5-4.0); Potassium 3.5 mmol/L (3.5-5.1)
[2024-08-10 13:44] LABS: Troponin I High Sensitivity 48.7 pg/ml (0-20)
[2024-08-10] MEDS: LORazepam 1 MG TAB PO STA (14:40)
[2024-08-10 14:44] LABS: Appearance Urine Clear (Clear); Bilirubin Urine Negative (Negative); Blood Urine Negative (Negative); Color Urine Yellow; Glucose Urine UA Negative (Negative); Ketones Urine Negative (Negative); Leukocyte Esterase Urine Negative (Negative); Nitrite Urine Negative (Negative); Protein Urine Negative (Negative); Specific Gravity Urine 1.025 (1.000-1.030); Urobilinogen Urine Negative (Negative)
--- NOTE | 2024-08-10 14:53 | Emergency Department Note ---
Impression & Plan Anxiety, Chest pain, Elevated troponin ED Provider Note NAME: PUJA GROSSMAN AGE: 84 SEX: M : 1940 ARRIVES VIA: Walk-In INFORMANT: Patient, ED PROVIDER(S): oD Deleon MD CHIEF COMPLAINT: Chest pain HPI: This is an 84-year-old male presenting for chest pain. Patient well-known to the emergency department as he is at 5+ visits in the past 1 month. His pulled me outside of the room and is concerned about patient's behavior. She is concerned that he is having significant anxiety as well as possible opiate use disorder symptoms. She notes that he was coming to mind any as they have given the morphine in the past and she is requesting I do not give the morphine at this time. Otherwise patient tells me that he has been chest pain and is concerned about his heart. He had a heart attack in June and he had stents placed at that time. He has been to another hospital yesterday for the same symptoms where he was refused narcotic/opiates. He states he feels anxious about his symptoms. ROS: See above HPI for pertinent positives & negatives. A total of 10 systems reviewed and were otherwise negative. PAST MEDICAL HISTORY: See Below PAST SURGICAL HISTORY: See Below FAMILY HISTORY: See Below SOCIAL HISTORY: See Below HOME MEDICATIONS: See Below ALLERGIES: See Below VITALS: See Below PHYSICAL EXAMINATION: General: Tremulous, anxious appearing Head: Normocephalic and atraumatic Eyes: Normal inspection, extraocular muscles intact Ear, nose, throat: Normal external exam Neck: Normal range of motion Respiratory: lungs clear to auscultation bilaterally Cardiovascular: Regular rate/rhythm, no murmur GI: soft, nontender, no guarding or rebound Extremities: nontender, moves all extremities Neuro: The patient awake and alert, conversant with slight stutter, stable gait, no focal deficits, symmetric faces Skin: Warm, dry, and intact MEDICAL DECISION MAKING: This is an 84-year-old male presenting for chest pain. Patient has had numerous visits to the emergency department over the past few weeks. He was seen for chest pain about 3 days ago and discharged 2 days ago. -His family is concerned about psychiatric/dementia causes. He has been stuttering which is new for him over the past few months. In addition he has had numerous visits requesting pain medication. He was admitted for delirium due to Vicodin use July 08 previously after his STEMI. He was and refused pain medication at other hospitals. -At this time we will do screening workup to rule out new ACS or significant other abnormality. -With there is a large component of psychiatric etiology underlying such as dementia, anxiety, panic attacks. -Bloodwork is reviewed showing no significant leukocytosis, anemia, electrolyte or creatinine abnormality. Troponin is elevated at 48.7, similar to previous values. -ECG independently interpreted by me with normal sinus rhythm, rate of 87, left axis deviation normal IA, normal QRS, normal QTc, no ST segment elevations consistent with STEMI criteria -chemistry manager to discuss options with family including geriatric psychiatry admission however he is not suicidal or homicidal at this time. -Chest Xray independently interpreted by me showing no pneumothorax, focal opacity, or pleural effusions. -Delta troponin is stable. -Patient appears well, after Ativan. -Currently patient is pending geriatric psychiatric placement versus discharge with home resources that are currently in process. -Patient care signed oncoming physician pending discharge planning Differential diagnosis: ACS, PE, anxiety, psychosis Independent History obtained from: , son and daughter Diagnostics interpreted by me: ECG: See above Cardiac Monitoring: An order was placed for continuous cardiac monitoring. The monitor shows a rate of 65 with sinus rhythm. Past Med/Surg History Problem List (Updated 08/11/24 @ 00:05 by Background Darommel) Elevated troponin (Acute) Chest pain (Acute) Anxiety (Acute) Spinal stenosis (Acute) Chest pain (Acute) Elevated troponin (Acute) Chest pain Chronic pain (Acute) Isolated TSH deficiency Hyperthyroidism Back pain of lumbar region with sciatica (Acute) Anxiety about health (Acute) Ambulatory dysfunction Hypercalcemia (Acute) Adrenal insufficiency (Acute) CAD (coronary atherosclerotic disease) (Acute) Prediabetes 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 Trochanteric bursitis of right hip History of pituitary adenoma Chronic kidney disease, stage III (moderate) (Acute) Dyslipidemia Osteopenia Prostatic hypertrophy Chronic low back pain ACTH deficiency (Chronic) Panhypopituitarism (Chronic) Anemia (Chronic) 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 TORRES BPH (benign prostatic hyperplasia) IBS (irritable bowel syndrome) GERD (gastroesophageal reflux disease) History of melanoma Hearing deficit BL MCRAE Lumbar herniated disc MULTIPLE Surgical History Hx laparoscopic cholecystectomy (06/03/19) Laparoscopic Cholecystectomy Dr. 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 Status post trigger finger release History of esophagogastroduodenoscopy (EGD) 04/20/2019. MAC no issues. History of colonoscopy History of melanoma excision CHEST - W/ SKIN GRAFTING. (LEFT GROIN DONOR SITE) Family History Sister Family hx of colon cancer Father Tobacco use Coronary heart disease Mother Diverticulosis of intestine Sister Ovarian cancer Colon cancer Grandfather Cancer Aunt Cancer Uncle Cancer Grandmother (Maternal) Cancer Other No significant family history Social History Smoking Status: Former smoker Second Hand Exposure: No; Do You Dip or Chew Tobacco: No; Hx Alcohol Use: No Hx Substance Use: No Preferred Language: Amharic Communication Ability: Impaired Visual Impairment: No Limitations Lag Screwer Required: No Beliefs That Will Affect Care: None Current Living Situation: Spouse Other Information That Helps Us Care for You: No Feels Safe at Home: Yes Safety Concerns: Feels Safe At This Time Assistive Devices: Walker Allergies Allergies Allergy/AdvReac Type Severity Reaction Status Date / Time lidocaine [From Lidoderm] AdvReac Mild Itching Verified 08/03/24 12:34 Home Meds Home Medications Medication Instructions Recorded Confirmed ascorbic acid (vitamin C) 500 mg 500 mg PO DAILY 08/07/24 08/10/24 tablet aspirin 81 mg tablet,delayed 81 mg PO DAILY 08/07/24 08/10/24 release atorvastatin 40 mg tablet 40 mg PO DAILY 08/07/24 08/10/24 bumetanide 1 mg tablet 1 mg PO DAILY 08/07/24 08/10/24 buspirone 5 mg tablet 5 mg PO TID 08/07/24 08/10/24 dicyclomine 20 mg tablet 20 mg PO TID 08/07/24 08/10/24 dutasteride 0.5 mg-tamsulosin ER 2 cap PO DAILY 08/07/24 08/10/24 0.4 mg capsule ext.release 24hr mphas hydrocortisone 5 mg tablet 15 mg PO HS 08/07/24 08/10/24 hydrocortisone 5 mg tablet 25 mg PO DAILY 08/07/24 08/10/24 hydroxyzine HCl 10 mg tablet 10 mg PO QID PRN Anxiety 08/07/24 08/10/24 isosorbide mononitrate 30 mg 30 mg PO DAILY 08/07/24 08/10/24 tablet,extended release 24 hr lisinopril 20 mg tablet 20 mg PO DAILY 08/07/24 08/10/24 magnesium 250 mg tablet 250 mg PO DAILY 08/07/24 08/10/24 methimazole 5 mg tablet 5 mg PO DAILY 08/07/24 08/10/24 metoprolol succinate 50 mg 50 mg PO BID 08/07/24 08/10/24 tablet,extended release 24 hr multivitamin 1 tab PO DAILY 08/07/24 08/10/24 nitroglycerin 0.4 mg sublingual 0.4 mg sublingual UD 08/07/24 08/10/24 tablet omeprazole 20 mg capsule,delayed 20 mg PO DAILY 08/07/24 08/10/24 release potassium chloride 20 mEq 20 meq PO DAILY 08/07/24 08/10/24 tablet,extended release sertraline 100 mg tablet 200 mg PO DAILY 08/07/24 08/10/24 ticagrelor 90 mg tablet (Brilinta) 90 mg PO BID 08/07/24 08/10/24 trazodone 150 mg tablet 150 mg PO HS 08/07/24 08/10/24 Previous Rx's Medication Instructions Recorded acetaminophen 300 mg-codeine 30 mg 1 tab PO DAILY PRN pain #10 tabs 08/08/24 tablet Results & Data (ED) Vital Signs Vital Signs - 24 hr 08/10/24 15:31 08/10/24 16:40 08/10/24 18:30 Pulse Rate [Finger] 63 83 74 Respiratory Rate 18 22 Respiratory Effort / Characteristics Non-Labored Spontaneous Non-Labored Spontaneous Non-Labored Spontaneous Respiratory Depth Normal Normal Normal Respiratory Pattern Regular Regular Blood Pressure [Right Arm] 135/58 L 169/80 H 144/73 H Blood Pressure Mean [Right Arm] 83 109 96 Blood Pressure Position [Right Arm] Lying Lying Lying Pulse Oximetry 97 94 98 Oxygen Delivery Method Room Air Room Air Room Air 08/10/24 20:47 Pulse Rate [Finger] 75 Respiratory Rate 16 Respiratory Effort / Characteristics Respiratory Depth Normal Respiratory Pattern Blood Pressure [Right Arm] 140/80 Blood Pressure Mean [Right Arm] 100 Blood Pressure Position [Right Arm] Pulse Oximetry Oxygen Delivery Method Laboratory Data 08/11/24 09:16 08/11/24 09:16 Lab Results 08/10/24 08/10/24 08/10/24 Range/Units 12:46 12:47 14:43 WBC 9.42 (4.8-10.8) K/ul RBC 3.47 L (4.70-6.10) M/uL Hgb 11.5 L (14.0-18.0) g/dl Hct 32.4 L (42.0-52.0) % MCV 93.4 (80.0-100.0) fL MCH 33.1 (25.0-34.0) pg MCHC 35.5 (32.0-36.0) g/dL RDW Std Deviation 46.0 (36.4-46.3) fL RDW Coeff of Mehnaz 13.4 (11.5-14.5) % Plt Count 155 (130-400) K/uL MPV 11.6 (9.4-12.4) fL Immature Gran % (Auto) 0.3 % Neut % (Auto) 61.5 % Lymph % (Auto) 27.4 % [place] % (Auto) 5.3 % Eos % (Auto) 4.8 % Baso % (Auto) 0.7 % Neut # (Auto) 5.79 (1.40-6.50) K/uL Lymph # (Auto) 2.58 (1.20-3.40) K/uL [place] # (Auto) 0.50 (0.11-0.59) K/uL Eos # (Auto) 0.45 (0.00-0.50) K/uL Baso # (Auto) 0.07 (0.00-0.20) K/uL Immature Gran # (Auto) 0.03 (0.01-0.20) K/uL Sodium 143 (136-145) mmol/L Potassium 3.5 (3.5-5.1) mmol/L Chloride 110 H (98-107) mmol/L Carbon Dioxide 24 (21-32) mmol/L Anion Gap 9 (3-11) BUN 19 (6-23) mg/dl Creatinine 1.39 (0.6-1.4) mg/dl Est Cr Clr Drug Dosing 38.4 ml/min eGFR 50.30 BUN/Creatinine Ratio 13.7 (10-20) Glucose 117 H (70-99(Fasting)) mg/dl Calcium 9.0 (8.6-10.3) mg/dl Total Bilirubin 0.5 (0.2-1.0) mg/dl AST 30 (13-39) U/L ALT 25 (7-52) U/L Alkaline Phosphatase 96 (34-104) U/L Troponin I High Sens 48.7 H 45.2 H (0-20) pg/ml Total Protein 6.0 (6.0-8.3) gm/dl Albumin 3.6 (3.4-5.0) gm/dl Globulin 2.4 L (2.5-4.0) gm/dl Albumin/Globulin Ratio 1.5 (0.9-2) Lipase 33 (11-82) U/L Urine Color Yellow Urine Appearance Clear (Clear) Urine pH 6.0 (4.5-7.5) Ur Specific [place] 1.025 (1.000-1.030) Urine Protein Negative (Negative) Urine Glucose (UA) Negative (Negative) Urine Ketones Negative (Negative) Urine Blood Negative (Negative) Urine Nitrite Negative (Negative) Urine Bilirubin Negative (Negative) Urine Urobilinogen Negative (Negative) Ur Leukocyte Esterase Negative (Negative) Urine Opiates Screen Pos H (Neg) Ur Methadone, Qual Neg (Neg) Urine Fentanyl Screen Neg (Neg) Urine Barbiturates Neg (Neg) Ur Phencyclidine (PCP) Neg (Neg) U Amphetamin/Meth Scrn Neg (Neg) MDMA (Ecstasy) Screen Pos H (Neg) U Benzodiazepines Scrn Neg (Neg) Ur Cocaine Metabolite Neg (Neg) U Marijuana (THC) Screen Neg (Neg) Ethyl Alcohol mg/dL (<10.0) mg/dl 08/10/24 Range/Units 18:44 WBC (4.8-10.8) K/ul RBC (4.70-6.10) M/uL Hgb (14.0-18.0) g/dl Hct (42.0-52.0) % MCV (80.0-100.0) fL MCH (25.0-34.0) pg MCHC (32.0-36.0) g/dL RDW Std Deviation (36.4-46.3) fL RDW Coeff of Mehnaz (11.5-14.5) % Plt Count (130-400) K/uL MPV (9.4-12.4) fL Immature Gran % (Auto) % Neut % (Auto) % Lymph % (Auto) % [place] % (Auto) % Eos % (Auto) % Baso % (Auto) % Neut # (Auto) (1.40-6.50) K/uL Lymph # (Auto) (1.20-3.40) K/uL [place] # (Auto) (0.11-0.59) K/uL Eos # (Auto) (0.00-0.50) K/uL Baso # (Auto) (0.00-0.20) K/uL Immature Gran # (Auto) (0.01-0.20) K/uL Sodium (136-145) mmol/L Potassium (3.5-5.1) mmol/L Chloride (98-107) mmol/L Carbon Dioxide (21-32) mmol/L Anion Gap (3-11) BUN (6-23) mg/dl Creatinine (0.6-1.4) mg/dl Est Cr Clr Drug Dosing ml/min eGFR BUN/Creatinine Ratio (10-20) Glucose (70-99(Fasting)) mg/dl Calcium (8.6-10.3) mg/dl Total Bilirubin (0.2-1.0) mg/dl AST (13-39) U/L ALT (7-52) U/L Alkaline Phosphatase (34-104) U/L Troponin I High Sens (0-20) pg/ml Total Protein (6.0-8.3) gm/dl Albumin (3.4-5.0) gm/dl Globulin (2.5-4.0) gm/dl Albumin/Globulin Ratio (0.9-2) Lipase (11-82) U/L Urine Color Urine Appearance (Clear) Urine pH (4.5-7.5) Ur Specific [place] (1.000-1.030) Urine Protein (Negative) Urine Glucose (UA) (Negative) Urine Ketones (Negative) Urine Blood (Negative) Urine Nitrite (Negative) Urine Bilirubin (Negative) Urine Urobilinogen (Negative) Ur Leukocyte Esterase (Negative) Urine Opiates Screen (Neg) Ur Methadone, Qual (Neg) Urine Fentanyl Screen (Neg) Urine Barbiturates (Neg) Ur Phencyclidine (PCP) (Neg) U Amphetamin/Meth Scrn (Neg) MDMA (Ecstasy) Screen (Neg) U Benzodiazepines Scrn (Neg) Ur Cocaine Metabolite (Neg) U Marijuana (THC) Screen (Neg) Ethyl Alcohol mg/dL < 10.0 (<10.0) mg/dl Administered Medications Acetaminophen/Codeine Phosphate (Acetaminophen W/Codeine #3 1 Tab) 1 tab PO DAILY PRN PRN Reason: pain Stop: 09/09/24 22:29 Last Admin: 08/11/24 11:46 Dose: 1 tab Documented By: Admin: 08/10/24 22:58 Dose: 1 tab Documented By: PETERSON Ascorbic Acid (Ascorbic Acid 500 Mg Tab) 500 mg PO DAILY TOD Stop: 09/10/24 08:59 Last Admin: 08/11/24 09:28 Dose: 500 mg Documented By: AVE Aspirin (Aspirin 81 Mg Ectab) 81 mg PO DAILY TOD Stop: 09/10/24 08:59 Last Admin: 08/11/24 09:23 Dose: 81 mg Documented By: AVE Atorvastatin Calcium (Atorvastatin 40 Mg Tab) 40 mg PO DAILY TOD Stop: 09/10/24 08:59 Last Admin: 08/11/24 09:26 Dose: 40 mg Documented By: AVE Bumetanide (Bumetanide 1 Mg Tab) 1 mg PO DAILY TOD Stop: 09/10/24 08:59 Last Admin: 08/11/24 09:21 Dose: 1 mg Documented By: AVE Buspirone HCl (Buspirone 5 Mg Tab) 5 mg PO TID TOD Stop: 09/10/24 08:59 Last Admin: 08/11/24 14:40 Dose: 5 mg Documented By: Admin: 08/11/24 09:23 Dose: 5 mg Documented By: BC Dicyclomine HCl (Dicyclomine Hcl 20 Mg Tab) 20 mg PO TID TOD Stop: 09/10/24 08:59 Last Admin: 08/11/24 14:40 Dose: 20 mg Documented By: Admin: 08/11/24 09:23 Dose: 20 mg Documented By: BC Finasteride (Finasteride 5 Mg Tab) 5 mg PO DAILY TOD Stop: 09/10/24 08:59 Last Admin: 08/11/24 09:27 Dose: 5 mg Documented By: BC Heparin Sodium (Porcine) (Heparin Sod 5,000 Unit/0.5 Ml Vial) 5,000 units SQ Q12 TOD Stop: 09/10/24 08:59 Last Admin: 08/11/24 09:36 Dose: 5,000 units Documented By: BC Hydrocortisone (Hydrocortisone 10 Mg Tab) 25 mg PO DAILY TOD Stop: 09/10/24 08:59 Last Admin: 08/11/24 09:21 Dose: 25 mg Documented By: BC Hydroxyzine HCl (Hydroxyzine Hcl 10 Mg Tab) 10 mg PO QID PRN PRN Reason: Anxiety Stop: 09/09/24 22:29 Last Admin: 08/11/24 09:26 Dose: 10 mg Documented By: BC Isosorbide Mononitrate (Isosorbide [place] Extended Rel 30 Mg Tabcr) 30 mg PO DAILY TOD Stop: 09/10/24 08:59 Last Admin: 08/11/24 09:21 Dose: 30 mg Documented By: BC Lisinopril (Lisinopril 20 Mg Tab) 20 mg PO DAILY TOD Stop: 09/10/24 08:59 Last Admin: 08/11/24 09:26 Dose: 20 mg Documented By: BC Lorazepam (Lorazepam 2 Mg/1 Ml Vial) 0.25 mg IV Q4H PRN PRN Reason: Anxiety/Agitation Stop: 09/09/24 22:29 Last Admin: 08/11/24 05:23 Dose: 0.25 mg Documented By: PETERSON Magnesium Oxide (Magnesium Oxide 400 Mg Tab) 200 mg PO DAILY TOD Stop: 09/10/24 08:59 Last Admin: 08/11/24 09:23 Dose: 200 mg Documented By: BC Methimazole (Methimazole 5 Mg Tablet) 5 mg PO DAILY TOD Stop: 09/10/24 08:59 Last Admin: 08/11/24 09:21 Dose: 5 mg Documented By: BC Metoprolol Succinate (Metoprolol Succ 50mg Ext Rel Tab) 50 mg PO BID TOD Stop: 09/10/24 08:59 Last Admin: 08/11/24 09:27 Dose: 50 mg Documented By: BC Multivitamins (Multivitamin Tab) 1 tab PO DAILY TOD Stop: 09/10/24 08:59 Last Admin: 08/11/24 09:28 Dose: 1 tab Documented By: BC Pantoprazole Sodium (Pantoprazole 40 Mg Tab) 40 mg PO DAILY TOD Stop: 09/10/24 08:59 Last Admin: 08/11/24 09:26 Dose: 40 mg Documented By: BC Potassium Chloride (Potassium Chloride Crtab 20 Meq Tabcr) 20 meq PO DAILY TOD Stop: 09/10/24 08:59 Last Admin: 08/11/24 09:36 Dose: 20 meq Documented By: AVE Sertraline HCl (Sertraline Hcl 100 Mg Tablet) 200 mg PO DAILY TOD Stop: 09/10/24 08:59 Last Admin: 08/11/24 09:28 Dose: 200 mg Documented By: AVE Tamsulosin HCl (Tamsulosin Hcl 0.4 Mg Cap) 0.4 mg PO DAILY TOD Stop: 09/10/24 08:59 Last Admin: 08/11/24 09:29 Dose: 0.4 mg Documented By: AVE Ticagrelor (Ticagrelor 90 Mg Tab) 90 mg PO BID TOD Stop: 09/10/24 08:59 Last Admin: 08/11/24 09:23 Dose: 90 mg Documented By: AVE Discontinued Medications Acetaminophen (Acetaminophen 325 Mg Tab) 650 mg PO NOW STA Stop: 08/10/24 17:59 Last Admin: 08/10/24 18:01 Dose: 650 mg Documented By: MAGGIEK Labetalol HCl (Labetalol Hcl Iv 5 Mg/Ml 20ml) 5 mg IV NOW STA; Protocol Stop: 08/11/24 04:17 Last Admin: 08/11/24 04:25 Dose: 5 mg Documented By: PETERSON Lorazepam (Lorazepam 1 Mg Tab) 1 mg PO NOW STA Stop: 08/10/24 14:34 Last Admin: 08/10/24 14:40 Dose: 1 mg Documented By: MAGGIEK Lorazepam (Lorazepam 1 Mg Tab) 1 mg SL NOW STA Stop: 08/10/24 19:19 Last Admin: 08/10/24 19:30 Dose: 1 mg Documented By: ROSALIO Metoprolol Succinate (Metoprolol Succ 50mg Ext Rel Tab) 50 mg PO NOW STA Stop: 08/10/24 21:39 Last Admin: 08/10/24 21:56 Dose: 50 mg Documented By: ROSALIO Ticagrelor (Ticagrelor 90 Mg Tab) 90 mg PO NOW STA Stop: 08/10/24 21:39 Last Admin: 08/10/24 21:54 Dose: 90 mg Documented By: HB Imaging Data Radiologist's Impression: Chest X-Ray 08/10/24 12:37 XR chest 1V portable CLINICAL HISTORY: Chest pain, nonspecific COMPARISON STUDY: Chest CT July 28, 2024. Chest radiograph August 07, 2024. FINDINGS: Mild elevation of the right hemidiaphragm is unchanged. Lungs are clear. There is no pneumothorax or pleural effusion. Cardiac size is normal. Mediastinal contours are normal. There is no evidence for pulmonary edema. IMPRESSION: No acute cardiopulmonary findings. No change in appearance of the chest. ACT 112: Negative or not required by law. Electronically signed by: Leo Mcfarland M.D. 08/10/2024 1:31 PM Discharge Plan Visit Data Chief Complaint: Chest Pain Stated Complaint: CHEST PAIN, STATES HE IS HAVING A HEART ATTACK ED Provider: Tomas Vann Discharge Problem: Anxiety, Chest pain, Elevated troponin Patient Disposition: Admitted As Inpatient Discharge Instructions Interventions: ED Discharge Assessment Last Done: 08/10/24 22:16
[2024-08-10 15:32] LABS: Amphetamines+Metham, Urine Neg (Neg); Barbiturates, Urine Neg (Neg); Benzodiazepine, Urine Neg (Neg); Cocaine, Urine Neg (Neg); Fentanyl, Urine Neg (Neg); MDMA (Ecstacy), Urine Pos (Neg); Marijuana, Urine Neg (Neg); Methadone, Urine Neg (Neg); Opiate, Urine Pos (Neg); Phencyclidine, Urine Neg (Neg)
--- NOTE | 2024-08-10 15:56 | Electrocardiogram Report ---
Test Reason : Blood Pressure : */* mmHG Vent. Rate : 87 BPM Atrial Rate : 87 BPM P-R Int : 152 ms QRS Dur : 88 ms QT Int : 372 ms P-R-T Axes : 37 -30 -41 degrees QTcB Int : 447 ms Normal sinus rhythm Left axis deviation Inferior infarct (cited on or before 08-Aug-2024) Nonspecific ST abnormality Abnormal ECG When compared with ECG of 08-Aug-2024 06:02, Vent. rate has increased by 31 bpm Nonspecific T wave abnormality now evident in Anterolateral leads Confirmed by Xander Mae ([id number]) on 08/10/2024 3:56:09 PM Referred By: REFERRED SELF Confirmed By: Xander Mae
--- NOTE | 2024-08-10 16:01 | Emergency Department Note ---
ED Visit Note Received this patient in signout from Dr. Deleon. See his note for full details. In short patient with cardiac history workup here today are reassuring. Is having significant anxiety issues. Seen by case management here or helping with resources for this. No SI or HI reported. Given a Tylenol for mild headache here. Case management discussed with patient and family with multiple referrals for geriatric psychiatric care. Denied locally with referrals pending outside of the area. Unfortunately does not seem like they will be any resolution of acceptance or not until tomorrow. There have been concerns raised from the outside facilities about his stability from medical stents given his age although his workup here has been reassuring. Given the fact that his anxiety is too severe and has required a second dose of Ativan here for it, discussed staying on the medical floor with psychiatric consultation until he is in a functional place to go home. Patient resting calmly and he and family in agreement. Discussed with the hospitalist team. .
[2024-08-10] MEDS: ACETAMINOPHEN 325 MG TAB PO STA (18:01)
[2024-08-10] MEDS: LORazepam 1 MG TAB SL STA (19:30)
[2024-08-10] MEDS: TICAGRELOR 90 MG TAB PO STA (21:54)
[2024-08-10] MEDS: METOPROLOL SUCC 50MG EXT REL TAB PO STA (21:56)
[2024-08-10] MEDS ORDERED: NITROGLYCERIN SL 0.4 MG/TAB TAB SL PRN (22:30)
[2024-08-10] MEDS ORDERED: POLYETHYLENE (MIRALAX) 17 GM PACK PO PRN (22:30)
[2024-08-10] MEDS: ACETAMINOPHEN W/CODEINE #3 1 TAB PO PRN (22:58)
--- NOTE | 2024-08-10 23:41 | History & Physical Report ---
Date of Service August 10, 2024 Assessment & Plan (1) Chest pain: Plan: 84-year-old male with past medical history significant for CAD status post stent in June 2024, hypertension, hyperlipidemia, history of pituitary adenoma surgery, panhypopituitarism(growth hormone deficiency, ACTH deficiency, central hypogonadism, toxic multinodular goiter as per records), hyperprolactinemia as per records, chronic steroid Rx, chronic kidney disease (baseline creatinine 1.4), chronic anemia (baseline hemoglobin 12-13), melanoma as per records BPH, anxiety/mood disorder, history of DVT as per records, chronic back pain , past tobacco abuse who lives at home with his currently ambulating with walker comes because of chest pain and anxiety. Patient was recently admitted to hospital on 08/07/24 and was discharged on 08/08/2024. He is admitted for chest pain and back pain. He had some elevation of troponin but trended down. Echo revealed stable findings and was evaluated by cardiology and advised to continue previous medications. For back pain he was supposed to see pain management coming Saturday. Patient also somewhat had anxiety attacks while in the hospital. As per yesterday patient complained of pain all over and he wanted to go to [facility]. As per at [facility] workup was unremarkable and was told that he was having panic attacks. Today again in the morning complained of chest pain and was very agitated that the son had to come for help. Currently plan is to place him in geriatric halfway. Case management working on placement. Patient received p.o. Ativan in the ER. Currently patient is calm. Alert and oriented x 3. Says he gets anxious.Currently says his back pain is okay. Denies any chest pain currently. No headache. No runny nose or sore throat . No cough. Afebrile. No shortness of breath. No nausea or abdominal pain. States normal bowel and bladder movements. Hemodynamics are okay. In June patient was admitted for non-ST LA and status post stent. And he had since then admitted for delirium possible from Vicodin and also admitted for recurrent chest pain and cardiac cath showed patent stents on July 10. He was also admitted on July 29 for hypotensio n CELI and diarrhea. Chest pain Initial troponin 48 and repeat is 45 EKG okay Troponins are better than recent admission Recently had negative workup Patient states he has anxiety Will follow serial enzymes Monitor in med/telemetry Anxiety Panic attacks Agitations Ativan as needed Psych consult Plan for geriatric nursing placement Back pain Lumbar spinal stenosis Ongoing Continue home pain medications will monitor Has appointment with pain management coming Saturday. CAD s/p stent Aspirin ,Brilinta, metoprolol succinate, atorvastatin CKD stage III Creatinine 1.3 around baseline Will follow labs History of velez hypopituitarism (growth hormone deficiency, ACTH deficiency, central hypogonadism, toxic multinodular goiter as per records) H/O pituitary adenoma surgery Follows with endocrinology Continue home hydrocortisone, methimazole Multicystic kidney disease and multiple hepatic cysts and CAT scan last admit Follow-up as outpatient Chronic anemia Hemoglobin 11.5 around baseline Will monitor Anxiety/mood disorder On buspirone DVT prophylaxis Heparin subcu Disposition Med/telemetry Full code History of Present Illness Chief Complaint: Chest pain and anxiety Primary Care Provider: Shalom Lieberman MD 84-year-old male with past medical history significant for CAD status post stent in June 2024, hypertension, hyperlipidemia, history of pituitary adenoma surgery, panhypopituitarism(growth hormone deficiency, ACTH deficiency, central hypogonadism, toxic multinodular goiter as per records), hyperprolactinemia as per records, chronic steroid Rx, chronic kidney disease (baseline creatinine 1.4), chronic anemia (baseline hemoglobin 12-13), melanoma as per records BPH, anxiety/mood disorder, history of DVT as per records, chronic back pain , past tobacco abuse who lives at home with his currently ambulating with walker comes because of chest pain and anxiety. Patient was recently admitted to hospital on 08/07/24 and was discharged on 08/08/2024. He is admitted for chest pain and back pain. He had some elevation of troponin but trended down. Echo revealed stable findings and was evaluated by cardiology and advised to continue previous medications. For back pain he was supposed to see pain management coming Saturday. Patient also somewhat had anxiety attacks while in the hospital. As per yesterday patient complained of pain all over and he wanted to go to [facility]. As per at [facility] workup was unremarkable and was told that he was having panic attacks. Today again in the morning complained of chest pain and was very agitated that the son had to come for help. Currently plan is to place him in geriatric halfway. Case management working on placement. Patient received p.o. Ativan in the ER. Currently patient is calm. Alert and oriented x 3. Says he gets anxious.Currently says his back pain is okay. Denies any chest pain currently. No headache. No runny nose or sore throat . No cough. Afebrile. No shortness of breath. No nausea or abdominal pain. States normal bowel and bladder movements. Hemodynamics are okay. In June patient was admitted for non-ST LA and status post stent. And he had since then admitted for delirium possible from Vicodin and also admitted for recurrent chest pain and cardiac cath showed patent stents on July 10. He was also admitted on July 29 for hypotension CELI and diarrhea. Past medical history. As mentioned above Past surgical history. Colonoscopy and EGD. Injection of lumbosacral spine. Removal of pituitary gland in 2019. S/p cardiac catheter and stent placement. Social history. . Quit smoking 1968. No alcohol use. No drug use. Family history. Daughter had breast cancer. Father had CHF. Mother had LA Allergies Allergy/AdvReac Type Severity Reaction Status Date / Time lidocaine [From Lidoderm] AdvReac Mild Itching Verified 08/03/24 12:34 Home Medications Medication Instructions Recorded Confirmed Type ascorbic acid (vitamin C) 500 mg 500 mg PO DAILY 08/07/24 08/10/24 History tablet aspirin 81 mg tablet,delayed 81 mg PO DAILY 08/07/24 08/10/24 History release atorvastatin 40 mg tablet 40 mg PO DAILY 08/07/24 08/10/24 History bumetanide 1 mg tablet 1 mg PO DAILY 08/07/24 08/10/24 History buspirone 5 mg tablet 5 mg PO TID 08/07/24 08/10/24 History dicyclomine 20 mg tablet 20 mg PO TID 08/07/24 08/10/24 History dutasteride 0.5 mg-tamsulosin ER 2 cap PO DAILY 08/07/24 08/10/24 History 0.4 mg capsule ext.release 24hr mphas hydrocortisone 5 mg tablet 15 mg PO HS 08/07/24 08/10/24 History hydrocortisone 5 mg tablet 25 mg PO DAILY 08/07/24 08/10/24 History hydroxyzine HCl 10 mg tablet 10 mg PO QID PRN Anxiety 08/07/24 08/10/24 History isosorbide mononitrate 30 mg 30 mg PO DAILY 08/07/24 08/10/24 History tablet,extended release 24 hr lisinopril 20 mg tablet 20 mg PO DAILY 08/07/24 08/10/24 History magnesium 250 mg tablet 250 mg PO DAILY 08/07/24 08/10/24 History methimazole 5 mg tablet 5 mg PO DAILY 08/07/24 08/10/24 History metoprolol succinate 50 mg 50 mg PO BID 08/07/24 08/10/24 History tablet,extended release 24 hr multivitamin 1 tab PO DAILY 08/07/24 08/10/24 History nitroglycerin 0.4 mg sublingual 0.4 mg sublingual UD 08/07/24 08/10/24 History tablet omeprazole 20 mg capsule,delayed 20 mg PO DAILY 08/07/24 08/10/24 History release potassium chloride 20 mEq 20 meq PO DAILY 08/07/24 08/10/24 History tablet,extended release sertraline 100 mg tablet 200 mg PO DAILY 08/07/24 08/10/24 History ticagrelor 90 mg tablet (Brilinta) 90 mg PO BID 08/07/24 08/10/24 History trazodone 150 mg tablet 150 mg PO HS 08/07/24 08/10/24 History acetaminophen 300 mg-codeine 30 mg 1 tab PO DAILY PRN pain #10 tabs 08/08/24 08/10/24 Rx tablet Past Med/Surg History Problem List (Updated 08/11/24 @ 00:05 by Background Daemon) Elevated troponin (Acute) Chest pain (Acute) Anxiety (Acute) Spinal stenosis (Acute) Chest pain (Acute) Elevated troponin (Acute) Chest pain Chronic pain (Acute) Isolated TSH deficiency Hyperthyroidism Back pain of lumbar region with sciatica (Acute) Anxiety about health (Acute) Ambulatory dysfunction Hypercalcemia (Acute) Adrenal insufficiency (Acute) CAD (coronary atherosclerotic disease) (Acute) Prediabetes 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 Trochanteric bursitis of right hip History of pituitary adenoma Chronic kidney disease, stage III (moderate) (Acute) Dyslipidemia Osteopenia Prostatic hypertrophy Chronic low back pain ACTH deficiency (Chronic) Panhypopituitarism (Chronic) Anemia (Chronic) 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 TORRES BPH (benign prostatic hyperplasia) IBS (irritable bowel syndrome) GERD (gastroesophageal reflux disease) History of melanoma Hearing deficit BL MCRAE Lumbar herniated disc MULTIPLE Surgical History Hx laparoscopic cholecystectomy (06/03/19) Laparoscopic Cholecystectomy Dr. 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 Status post trigger finger release History of esophagogastroduodenoscopy (EGD) 04/20/2019. MAC no issues. History of colonoscopy History of melanoma excision CHEST - W/ SKIN GRAFTING. 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 ENT- oropharynx clear Neck- supple, no JVD. Lungs- clear to auscultation no wheezing or crackles Heart- regular rate and rhythm; no murmur, no gallop. Abdomen- normal bowel sounds, soft, nontender, no distension. Extremities- no pretibial edema, no erythema seen. Neuro- alert, oriented x 3; PERRL, no facial palsy; no dysarthria; moves extremities. Skin- warm & dry Results & Data Results & Data Vital Signs (Past 12 Hours) Vital Signs Temp Pulse Pulse Resp BP Pulse Ox O2 Del Method 08/10/24 20:47 75 16 140/80 08/10/24 18:30 74 22 144/73 H 98 Room Air 08/10/24 16:40 83 18 169/80 H 94 Room Air 08/10/24 15:31 63 18 135/58 L 97 Room Air 08/10/24 14:37 91 H 18 120/78 99 08/10/24 12:52 100 Room Air 08/10/24 12:51 98 Room Air 08/10/24 12:46 90 08/10/24 12:15 36.6 C 87 20 98 Room Air Diagnostic Findings Laboratory Results WBC 9.42 K/ul (4.8-10.8) 08/10/24 12:46 RBC 3.47 M/uL (4.70-6.10) L 08/10/24 12:46 Hgb 11.5 g/dl (14.0-18.0) L 08/10/24 12:46 Hct 32.4 % (42.0-52.0) L 08/10/24 12:46 MCV 93.4 fL (80.0-100.0) 08/10/24 12:46 MCH 33.1 pg (25.0-34.0) 08/10/24 12:46 MCHC 35.5 g/dL (32.0-36.0) 08/10/24 12:46 RDW Std Deviation 46.0 fL (36.4-46.3) 08/10/24 12:46 RDW Coeff of Mehnaz 13.4 % (11.5-14.5) 08/10/24 12:46 Plt Count 155 K/uL (130-400) 08/10/24 12:46 MPV 11.6 fL (9.4-12.4) 08/10/24 12:46 Immature Gran % (Auto) 0.3 % 08/10/24 12:46 Neut % (Auto) 61.5 % 08/10/24 12:46 Lymph % (Auto) 27.4 % 08/10/24 12:46 Miner % (Auto) 5.3 % 08/10/24 12:46 Eos % (Auto) 4.8 % 08/10/24 12:46 Baso % (Auto) 0.7 % 08/10/24 12:46 Neut # (Auto) 5.79 K/uL (1.40-6.50) 08/10/24 12:46 Lymph # (Auto) 2.58 K/uL (1.20-3.40) 08/10/24 12:46 Miner # (Auto) 0.50 K/uL (0.11-0.59) 08/10/24 12:46 Eos # (Auto) 0.45 K/uL (0.00-0.50) 08/10/24 12:46 Baso # (Auto) 0.07 K/uL (0.00-0.20) 08/10/24 12:46 Immature Gran # (Auto) 0.03 K/uL (0.01-0.20) 08/10/24 12:46 Sodium 143 mmol/L (136-145) 08/10/24 12:46 Potassium 3.5 mmol/L (3.5-5.1) 08/10/24 12:46 Chloride 110 mmol/L (98-107) H 08/10/24 12:46 Carbon Dioxide 24 mmol/L (21-32) 08/10/24 12:46 Anion Gap 9 (3-11) 08/10/24 12:46 BUN 19 mg/dl (6-23) 08/10/24 12:46 Creatinine 1.39 mg/dl (0.6-1.4) 08/10/24 12:46 Est Cr Clr Drug Dosing 38.4 ml/min 08/10/24 12:46 eGFR 50.30 08/10/24 12:46 BUN/Creatinine Ratio 13.7 (10-20) 08/10/24 12:46 Glucose 117 mg/dl (70-99(Fasting)) H 08/10/24 12:46 Calcium 9.0 mg/dl (8.6-10.3) 08/10/24 12:46 Total Bilirubin 0.5 mg/dl (0.2-1.0) 08/10/24 12:46 AST 30 U/L (13-39) 08/10/24 12:46 ALT 25 U/L (7-52) 08/10/24 12:46 Alkaline Phosphatase 96 U/L (34-104) 08/10/24 12:46 Troponin I High Sens 45.2 pg/ml (0-20) H 08/10/24 14:43 Total Protein 6.0 gm/dl (6.0-8.3) 08/10/24 12:46 Albumin 3.6 gm/dl (3.4-5.0) 08/10/24 12:46 Globulin 2.4 gm/dl (2.5-4.0) L 08/10/24 12:46 Albumin/Globulin Ratio 1.5 (0.9-2) 08/10/24 12:46 Lipase 33 U/L (11-82) 08/10/24 12:46 Urine Color Yellow 08/10/24 12:47 Urine Appearance Clear (Clear) 08/10/24 12:47 Urine pH 6.0 (4.5-7.5) 08/10/24 12:47 Ur Specific [place] 1.025 (1.000-1.030) 08/10/24 12:47 Urine Protein Negative (Negative) 08/10/24 12:47 Urine Glucose (UA) Negative (Negative) 08/10/24 12:47 Urine Ketones Negative (Negative) 08/10/24 12:47 Urine Blood Negative (Negative) 08/10/24 12:47 Urine Nitrite Negative (Negative) 08/10/24 12:47 Urine Bilirubin Negative (Negative) 08/10/24 12:47 Urine Urobilinogen Negative (Negative) 08/10/24 12:47 Ur Leukocyte Esterase Negative (Negative) 08/10/24 12:47 Urine Opiates Screen Pos (Neg) H 08/10/24 12:47 Ur Methadone, Qual Neg (Neg) 08/10/24 12:47 Urine Fentanyl Screen Neg (Neg) 08/10/24 12:47 Urine Barbiturates Neg (Neg) 08/10/24 12:47 Ur Phencyclidine (PCP) Neg (Neg) 08/10/24 12:47 U Amphetamin/Meth Scrn Neg (Neg) 08/10/24 12:47 MDMA (Ecstasy) Screen Pos (Neg) H 08/10/24 12:47 U Benzodiazepines Scrn Neg (Neg) 08/10/24 12:47 Ur Cocaine Metabolite Neg (Neg) 08/10/24 12:47 U Marijuana (THC) Screen Neg (Neg) 08/10/24 12:47 Ethyl Alcohol mg/dL < 10.0 mg/dl (<10.0) 08/10/24 18:44 Impressions Chest X-Ray 08/10/24 12:37 XR chest 1V portable CLINICAL HISTORY: Chest pain, nonspecific COMPARISON STUDY: Chest CT July 28, 2024. Chest radiograph August 07, 2024. FINDINGS: Mild elevation of the right hemidiaphragm is unchanged. Lungs are c lear. There is no pneumothorax or pleural effusion. Cardiac size is normal. Mediastinal contours are normal. There is no evidence for pulmonary edema. IMPRESSION: No acute cardiopulmonary findings. No change in appearance of the chest. ACT 112: Negative or not required by law. Electronically signed by: Leo Mcfarland M.D. 08/10/2024 1:31 PM ECG Additional Comments: ECG.. Normal sinus rhythm rate of 87. Left axis deviation. Nonspecific abnormalities in anterolateral leads. QTc 447. Code Status & VTE Plan VTE Prophylaxis Plan VTE Prophylaxis will be ordered: Yes
[2024-08-11] MEDS: LABETALOL HCL IV 5 MG/ML 20ML IV STA (04:25)
[2024-08-11] MEDS: LORazepam 2 MG/1 ML VIAL IV PRN (05:23)
[2024-08-11] MEDS ORDERED: TAMSULOSIN PO SCH (09:00)
[2024-08-11] MEDS ORDERED: DUTASTERIDE PO SCH (09:00)
[2024-08-11] MEDS ORDERED: [UNRECOGNIZED DRUG - OTHER] PO SCH (09:00)
[2024-08-11] MEDS: ISOSORBIDE MONO EXTENDED REL 30 MG TABCR PO SCH (09:21)
[2024-08-11] MEDS: HYDROCORTISONE 10 MG TAB PO SCH ×2 (09:21→21:59)
[2024-08-11] MEDS: BUMETANIDE 1 MG TAB PO SCH (09:21)
[2024-08-11] MEDS: methIMAzole 5 MG TABLET PO SCH (09:21)
[2024-08-11] MEDS: ASPIRIN 81 MG ECTAB PO SCH (09:23)
[2024-08-11] MEDS: TICAGRELOR 90 MG TAB PO SCH (09:23)
[2024-08-11] MEDS: MAGNESIUM OXIDE 400 MG TAB PO SCH (09:23)
[2024-08-11] MEDS: busPIRone 5 MG TAB PO SCH (09:23)
[2024-08-11] MEDS: DICYCLOMINE HCL 20 MG TAB PO SCH (09:23)
[2024-08-11] MEDS: hydrOXYzine HCl 10 MG TAB PO PRN (09:26)
[2024-08-11] MEDS: lisinopril 20 MG TAB PO SCH (09:26)
[2024-08-11] MEDS: PANTOprazole 40 MG TAB PO SCH (09:26)
[2024-08-11] MEDS: ATORVASTATIN 40 MG TAB PO SCH (09:26)
[2024-08-11] MEDS: FINASTERIDE 5 MG TAB PO SCH (09:27)
[2024-08-11] MEDS: METOPROLOL SUCC 50MG EXT REL TAB PO SCH (09:27)
[2024-08-11] MEDS: SERTRALINE HCL 100 MG TABLET PO SCH (09:28)
[2024-08-11] MEDS: MULTIVITAMIN TAB PO SCH (09:28)
[2024-08-11] MEDS: ASCORBIC ACID 500 MG TAB PO SCH (09:28)
[2024-08-11] MEDS: TAMSULOSIN HCL 0.4 MG CAP PO SCH (09:29)
[2024-08-11 09:32] LABS: Basophils # (auto) 0.05 K/uL (0.00-0.20); Basophils % (auto) 0.6 %; Eosinophils # (auto) 0.43 K/uL (0.00-0.50); Eosinophils % (auto) 5.2 %; Hematocrit (blood only) 29.7 % (42.0-52.0); Hemoglobin 10.2 g/dl (14.0-18.0); Immature Granulocytes # (auto) 0.03 K/uL (0.01-0.20); Immature Granulocytes % (auto) 0.4 %; Lymphocytes % (auto) 30.5 %; Mean Corpuscular Hemoglobin 32.3 pg (25.0-34.0); Mean Corpuscular Hgb Conc 34.3 g/dL (32.0-36.0); Mean Platelet Volume 11.3 fL (9.4-12.4); Monocytes # (auto) 0.57 K/uL (0.11-0.59); Neutrophils # (auto) 4.62 K/uL (1.40-6.50); Neutrophils % (auto) 56.3 %; Platelet Count 133 K/uL (130-400); RDW Coefficient of Variation 13.1 % (11.5-14.5); RDW Standard Deviation 45.1 fL (36.4-46.3); Red Blood Count 3.16 M/uL (4.70-6.10)
[2024-08-11] MEDS: POTASSIUM CHLORIDE CRTAB 20 MEQ TABCR PO SCH (09:36)
[2024-08-11] MEDS: HEPARIN SOD 5,000 UNIT/0.5 ML VIAL SQ SCH (09:36)
[2024-08-11 09:48] LABS: BUN Creatinine Ratio 11.3 (10-20); Calcium 8.4 mg/dl (8.6-10.3); Creatinine Clr Calc Pharmacy 39.9 ml/min; Magnesium 1.8 mg/dl (1.7-2.4); Potassium 3.9 mmol/L (3.5-5.1)
[2024-08-11 10:10] LABS: Troponin I High Sensitivity 56.7 pg/ml (0-20)
--- NOTE | 2024-08-11 12:05 | Hospitalist Progress Note ---
Date of Service August 11, 2024 Assessment & Plan (1) Chest pain: Plan: 84-year-old male with past medical history significant for CAD status post stent in June 2024, hypertension, hyperlipidemia, history of pituitary adenoma surgery, panhypopituitarism(growth hormone deficiency, ACTH deficiency, central hypogonadism, toxic multinodular goiter as per records), hyperprolactinemia as per records, chronic steroid Rx, chronic kidney disease (baseline creatinine 1.4), chronic anemia (baseline hemoglobin 12-13), melanoma as per records BPH, anxiety/mood disorder, history of DVT as per records, chronic back pain , past tobacco abuse who lives at home with his currently ambulating with walker comes because of chest pain and anxiety. Patient was recently admitted to hospital on 08/07/24 and was discharged on 08/08/2024. He is admitted for chest pain and back pain. He had some elevation of troponin but trended down. Echo revealed stable findings and was evaluated by cardiology and advised to continue previous medications. For back pain he was supposed to see pain management coming Saturday. Patient also somewhat had anxiety attacks while in the hospital. As per yesterday patient complained of pain all over and he wanted to go to [facility]. As per at [facility] workup was unremarkable and was told that he was having panic attacks. Today again in the morning complained of chest pain and was very agitated that the son had to come for help. Currently plan is to place him in [facility]iatric [facility]. Case management working on placement. Patient received p.o. Ativan in the ER. Currently patient is calm. Alert and oriented x 3. Says he gets anxious.Currently says his back pain is okay. Denies any chest pain currently. No headache. No runny nose or sore throat . No cough. Afebrile. No shortness of breath. No nausea or abdominal pain. States normal bowel and bladder movements. Hemodynamics are okay. In June patient was admitted for non-ST RI and status post stent. And he had since then admitted for delirium possible from Vicodin and also admitted for recurrent chest pain and cardiac cath showed patent stents on July 10. He was also admitted on July 29 for hypotensi on CELI and diarrhea. Chest pain troponins 40s-50s EKG reviewed - w/o significant change from previous Troponins are better than recent admission Recently had negative cardiac workup Patient states he has anxiety Monitor in med/telemetry Anxiety Panic attacks Agitations Ativan as needed Psychiatry consulted Plan for geriatric nursing placement Back pain Lumbar spinal stenosis Ongoing Continue home pain medications will monitor Has appointment with pain management CAD s/p stent Aspirin ,Brilinta, metoprolol succinate, atorvastatin CKD stage III Creatinine 1.3 around baseline Will follow labs History of velez hypopituitarism (growth hormone deficiency, ACTH deficiency, central hypogonadism, toxic multinodular goiter as per records) H/O pituitary adenoma surgery Follows with endocrinology Continue home hydrocortisone, methimazole Multicystic kidney disease and multiple hepatic cysts and CAT scan last admit Follow-up as outpatient Chronic anemia Hemoglobin 11.5 around baseline Will monitor Anxiety/mood disorder On buspirone DVT prophylaxis Heparin subcu Disposition Med/telemetry Full code Admission and Anticipated Discharge Date Admission Date: August 10, 2024 Subjective Pt seen in follow up - pt admitted for poss. panic attack, chest pain Recently admitted and cardiac work-up was reassuring Psychiatry consulted Patient is laying in bed in NAD. Pt's is present at the bedside. Patient reports he feels well, and does not have any chest pains. Says he feels he is having anxiety attacks. Currently denies any fever, chills, shortness of breath, chest pain, abd. pain, n/v. Review of Systems Review of Systems: All systems reviewed & are unremarkable except as noted in Subjective Physical Exam Physical Exam: General- WD/WN elderly M in NAD Head- atraumatic Eyes- EOMI Neck- supple Lungs- clear to auscultation no wheezing or crackles Heart- regular rate and rhythm; no murmur Abdomen- normal bowel sounds, soft, nontender, no distension. Extremities- no pretibial edema, no erythema seen. Neuro- alert, oriented x 3; PERRL, no facial palsy; no dysarthria; moves extremities. Skin- warm & dry Results & Data Results & Data Vital Signs (Past 12 Hours) Vital Signs Temp Pulse Pulse Resp BP BP BP 08/11/24 11:04 36.7 C 64 20 166/65 H 08/11/24 07:27 36.5 C 62 16 153/70 H 08/11/24 04:43 55 L 168/66 H 08/11/24 04:43 55 L 168/66 H 08/11/24 04:25 62 185/67 H 08/11/24 04:13 36.9 C 62 18 185/67 H Pulse Ox O2 Del Method 08/11/24 11:04 95 Room Air 08/11/24 07:27 98 Room Air 08/11/24 04:43 08/11/24 04:43 08/11/24 04:25 08/11/24 04:13 96 Room Air Laboratory Results 08/11/24 08/11/24 08/10/24 Range/Units 10:56 09:16 18:44 WBC 8.20 (4.8-10.8) K/ul RBC 3.16 L (4.70-6.10) M/uL Hgb 10.2 L (14.0-18.0) g/dl Hct 29.7 L (42.0-52.0) % MCV 94.0 (80.0-100.0) fL MCH 32.3 (25.0-34.0) pg MCHC 34.3 (32.0-36.0) g/dL RDW Std Deviation 45.1 (36.4-46.3) fL RDW Coeff of Mehnaz 13.1 (11.5-14.5) % Plt Count 133 (130-400) K/uL MPV 11.3 (9.4-12.4) fL Immature Gran % (Auto) 0.4 % Neut % (Auto) 56.3 % Lymph % (Auto) 30.5 % [place] % (Auto) 7.0 % Eos % (Auto) 5.2 % Baso % (Auto) 0.6 % Neut # (Auto) 4.62 (1.40-6.50) K/uL Lymph # (Auto) 2.50 (1.20-3.40) K/uL [place] # (Auto) 0.57 (0.11-0.59) K/uL Eos # (Auto) 0.43 (0.00-0.50) K/uL Baso # (Auto) 0.05 (0.00-0.20) K/uL Immature Gran # (Auto) 0.03 (0.01-0.20) K/uL Sodium 144 (136-145) mmol/L Potassium 3.9 (3.5-5.1) mmol/L Chloride 112 H (98-107) mmol/L Carbon Dioxide 28 (21-32) mmol/L Anion Gap 4 (3-11) BUN 15 (6-23) mg/dl Creatinine 1.33 (0.6-1.4) mg/dl Est Cr Clr Drug Dosing 39.9 ml/min eGFR 53.04 BUN/Creatinine Ratio 11.3 (10-20) Glucose 92 (70-99(Fasting)) mg/dl Calcium 8.4 L (8.6-10.3) mg/dl Magnesium 1.8 (1.7-2.4) mg/dl Total Bilirubin (0.2-1.0) mg/dl AST (13-39) U/L ALT (7-52) U/L Alkaline Phosphatase (34-104) U/L Troponin I High Sens 57.9 H* 56.7 H* D (0-20) pg/ml Total Protein (6.0-8.3) gm/dl Albumin (3.4-5.0) gm/dl Globulin (2.5-4.0) gm/dl Albumin/Globulin Ratio (0.9-2) Lipase (11-82) U/L Urine Color Urine Appearance (Clear) Urine pH (4.5-7.5) Ur Specific [place] (1.000-1.030) Urine Protein (Negative) Urine Glucose (UA) (Negative) Urine Ketones (Negative) Urine Blood (Negative) Urine Nitrite (Negative) Urine Bilirubin (Negative) Urine Urobilinogen (Negative) Ur Leukocyte Esterase (Negative) Urine Opiates Screen (Neg) U Codeine Confrm GC/MS Ur Morphine (GC/MS) Ur Hydrocodone (GC/MS) Ur Norhydrocodone Ur Noroxycodone Urine Oxycodone (GC/MS) U Oxymorphone GC/MS Ur Methadone, Qual (Neg) Ur Hydromorphone (GC/MS) Urine Fentanyl Screen (Neg) Urine Barbiturates (Neg) Ur Phencyclidine (PCP) (Neg) U Amphetamin/Meth Scrn (Neg) Urine MDEA MDMA (Ecstasy) Screen (Neg) MDMA Urine MDMA U Benzodiazepines Scrn (Neg) Ur Cocaine Metabolite (Neg) U Marijuana (THC) Screen (Neg) Drug Screen Comment Ethyl Alcohol mg/dL < 10.0 (<10.0) mg/dl 11/25/24 11/25/24 11/25/24 Range/Units 14:43 12:47 12:46 WBC 9.42 (4.8-10.8) K/ul RBC 3.47 L (4.70-6.10) M/uL Hgb 11.5 L (14.0-18.0) g/dl Hct 32.4 L (42.0-52.0) % MCV 93.4 (80.0-100.0) fL MCH 33.1 (25.0-34.0) pg MCHC 35.5 (32.0-36.0) g/dL RDW Std Deviation 46.0 (36.4-46.3) fL RDW Coeff of Mehnaz 13.4 (11.5-14.5) % Plt Count 155 (130-400) K/uL MPV 11.6 (9.4-12.4) fL Immature Gran % (Auto) 0.3 % Neut % (Auto) 61.5 % Lymph % (Auto) 27.4 % [place] % (Auto) 5.3 % Eos % (Auto) 4.8 % Baso % (Auto) 0.7 % Neut # (Auto) 5.79 (1.40-6.50) K/uL Lymph # (Auto) 2.58 (1.20-3.40) K/uL [place] # (Auto) 0.50 (0.11-0.59) K/uL Eos # (Auto) 0.45 (0.00-0.50) K/uL Baso # (Auto) 0.07 (0.00-0.20) K/uL Immature Gran # (Auto) 0.03 (0.01-0.20) K/uL Sodium 143 (136-145) mmol/L Potassium 3.5 (3.5-5.1) mmol/L Chloride 110 H (98-107) mmol/L Carbon Dioxide 24 (21-32) mmol/L Anion Gap 9 (3-11) BUN 19 (6-23) mg/dl Creatinine 1.39 (0.6-1.4) mg/dl Est Cr Clr Drug Dosing 38.4 ml/min eGFR 50.30 BUN/Creatinine Ratio 13.7 (10-20) Glucose 117 H (70-99(Fasting)) mg/dl Calcium 9.0 (8.6-10.3) mg/dl Magnesium (1.7-2.4) mg/dl Total Bilirubin 0.5 (0.2-1.0) mg/dl AST 30 (13-39) U/L ALT 25 (7-52) U/L Alkaline Phosphatase 96 (34-104) U/L Troponin I High Sens 45.2 H 48.7 H (0-20) pg/ml Total Protein 6.0 (6.0-8.3) gm/dl Albumin 3.6 (3.4-5.0) gm/dl Globulin 2.4 L (2.5-4.0) gm/dl Albumin/Globulin Ratio 1.5 (0.9-2) Lipase 33 (11-82) U/L Urine Color Yellow Urine Appearance Clear (Clear) Urine pH 6.0 (4.5-7.5) Ur Specific [place] 1.025 (1.000-1.030) Urine Protein Negative (Negative) Urine Glucose (UA) Negative (Negative) Urine Ketones Negative (Negative) Urine Blood Negative (Negative) Urine Nitrite Negative (Negative) Urine Bilirubin Negative (Negative) Urine Urobilinogen Negative (Negative) Ur Leukocyte Esterase Negative (Negative) Urine Opiates Screen Pos H (Neg) U Codeine Confrm GC/MS Pending Ur Morphine (GC/MS) Pending Ur Hydrocodone (GC/MS) Pending Ur Norhydrocodone Pending Ur Noroxycodone Pending Urine Oxycodone (GC/MS) Pending U Oxymorphone GC/MS Pending Ur Methadone, Qual Neg (Neg) Ur Hydromorphone (GC/MS) Pending Urine Fentanyl Screen Neg (Neg) Urine Barbiturates Neg (Neg) Ur Phencyclidine (PCP) Neg (Neg) U Amphetamin/Meth Scrn Neg (Neg) Urine MDEA Pending MDMA (Ecstasy) Screen Pos H (Neg) MDMA Pending Urine MDMA Pending U Benzodiazepines Scrn Neg (Neg) Ur Cocaine Metabolite Neg (Neg) U Marijuana (THC) Screen Neg (Neg) Drug Screen Comment Pending Ethyl Alcohol mg/dL (<10.0) mg/dl Medications Administered Current Inpatient Medications Acetaminophen (Acetaminophen 325 Mg Tab) 650 mg PO Q4H PRN PRN Reason: Pain or Fever Stop: 12/25/24 22:29 Acetaminophen/Codeine Phosphate (Acetaminophen W/Codeine #3 1 Tab) 1 tab PO DAILY PRN PRN Reason: pain Stop: 09/09/24 22:29 Last Admin: 08/11/24 11:46 Dose: 1 tab Ascorbic Acid (Ascorbic Acid 500 Mg Tab) 500 mg PO DAILY TOD Stop: 09/10/24 08:59 Last Admin: 08/11/24 09:28 Dose: 500 mg Aspirin (Aspirin 81 Mg Ectab) 81 mg PO DAILY TOD Stop: 09/10/24 08:59 Last Admin: 08/11/24 09:23 Dose: 81 mg Atorvastatin Calcium (Atorvastatin 40 Mg Tab) 40 mg PO DAILY TOD Stop: 09/10/24 08:59 Last Admin: 08/11/24 09:26 Dose: 40 mg Bumetanide (Bumetanide 1 Mg Tab) 1 mg PO DAILY TOD Stop: 09/10/24 08:59 Last Admin: 08/11/24 09:21 Dose: 1 mg Buspirone HCl (Buspirone 5 Mg Tab) 5 mg PO TID TOD Stop: 09/10/24 08:59 Last Admin: 08/11/24 09:23 Dose: 5 mg Dicyclomine HCl (Dicyclomine Hcl 20 Mg Tab) 20 mg PO TID OTD Stop: 09/10/24 08:59 Last Admin: 08/11/24 09:23 Dose: 20 mg Finasteride (Finasteride 5 Mg Tab) 5 mg PO DAILY TOD Stop: 09/10/24 08:59 Last Admin: 08/11/24 09:27 Dose: 5 mg Heparin Sodium (Porcine) (Heparin Sod 5,000 Unit/0.5 Ml Vial) 5,000 units SQ Q12 TOD Stop: 09/10/24 08:59 Last Admin: 08/11/24 09:36 Dose: 5,000 units Hydrocortisone (Hydrocortisone 10 Mg Tab) 15 mg PO HS TOD Stop: 09/10/24 20:59 Hydrocortisone (Hydrocortisone 10 Mg Tab) 25 mg PO DAILY TOD Stop: 09/10/24 08:59 Last Admin: 08/11/24 09:21 Dose: 25 mg Hydroxyzine HCl (Hydroxyzine Hcl 10 Mg Tab) 10 mg PO QID PRN PRN Reason: Anxiety Stop: 09/09/24 22:29 Last Admin: 08/11/24 09:26 Dose: 10 mg Isosorbide Mononitrate (Isosorbide [place] Extended Rel 30 Mg Tabcr) 30 mg PO DAILY TOD Stop: 09/10/24 08:59 Last Admin: 08/11/24 09:21 Dose: 30 mg Lisinopril (Lisinopril 20 Mg Tab) 20 mg PO DAILY TOD Stop: 09/10/24 08:59 Last Admin: 08/11/24 09:26 Dose: 20 mg Lorazepam (Lorazepam 2 Mg/1 Ml Vial) 0.25 mg IV Q4H PRN PRN Reason: Anxiety/Agitation Stop: 09/09/24 22:29 Last Admin: 08/11/24 05:23 Dose: 0.25 mg Magnesium Oxide (Magnesium Oxide 400 Mg Tab) 200 mg PO DAILY TOD Stop: 09/10/24 08:59 Last Admin: 08/11/24 09:23 Dose: 200 mg Methimazole (Methimazole 5 Mg Tablet) 5 mg PO DAILY TOD Stop: 09/10/24 08:59 Last Admin: 08/11/24 09:21 Dose: 5 mg Metoprolol Succinate (Metoprolol Succ 50mg Ext Rel Tab) 50 mg PO BID TOD Stop: 09/10/24 08:59 Last Admin: 08/11/24 09:27 Dose: 50 mg Multivitamins (Multivitamin Tab) 1 tab PO DAILY TOD Stop: 09/10/24 08:59 Last Admin: 08/11/24 09:28 Dose: 1 tab Nitroglycerin (Nitroglycerin Sl 0.4 Mg/Tab Tab) 0.4 mg SL Q5M PRN PRN Reason: Chest Pain Stop: 09/09/24 22:29 Pantoprazole Sodium (Pantoprazole 40 Mg Tab) 40 mg PO DAILY TOD Stop: 09/10/24 08:59 Last Admin: 08/11/24 09:26 Dose: 40 mg Polyethylene Glycol (Polyethylene (Miralax) 17 Gm Pack) 17 gm PO DAILY PRN PRN Reason: Constipation Stop: 09/09/24 22:29 Potassium Chloride (Potassium Chloride Crtab 20 Meq Tabcr) 20 meq PO DAILY TOD Stop: 09/10/24 08:59 Last Admin: 08/11/24 09:36 Dose: 20 meq Sertraline HCl (Sertraline Hcl 100 Mg Tablet) 200 mg PO DAILY TOD Stop: 09/10/24 08:59 Last Admin: 08/11/24 09:28 Dose: 200 mg Tamsulosin HCl (Tamsulosin Hcl 0.4 Mg Cap) 0.4 mg PO DAILY TOD Stop: 09/10/24 08:59 Last Admin: 08/11/24 09:29 Dose: 0.4 mg Ticagrelor (Ticagrelor 90 Mg Tab) 90 mg PO BID TOD Stop: 09/10/24 08:59 Last Admin: 08/11/24 09:23 Dose: 90 mg Trazodone HCl (Trazodone Hcl 50 Mg Tab) 150 mg PO HS TOD Stop: 09/10/24 20:59
--- OUTSIDE RECORDS SUMMARY | 2024-08-11 12:30 | External Medical Summary | Summary of Care ---
Author Name Unknown Organization [facility] Address [address] [place] [address] Phone [phone] Care Team Providers Care Grocery Associate Name Role Phone Noelle Duron MD Primary Care Provider [phone] Encounter Details Date Type Department Care Team (Late st Contact Info) Description 08/10/2024 Orders Only [facility] [address] [place] [id number] Shalom Lieberman MD [address] [place] [address] Allergies No known active allergiesdocumented as of this encounter (statuses as of 08/10/2024) Medications hydrOXYzine HCl 25 MG tablet Take 10 mg by mouth as needed. 9 Active Ferrous Sulfate (IRON) 325 (65 Fe) MG TABS Take by mouth. Act cherise Magnesium 250 MG Tablet Take 1 Tablet [...] times daily 90 Tablet 2 4 Active documented as of this encounter (statuses as of 08/10/2024) Active Problems Problem Noted Date Diagnosed Date [...] as of this encounter (statuses as of 08/10/2024) Resolved Problems Problem Noted Date Diagnosed Date [...] as of this encounter (statuses as of 08/10/2024) Immunizations Name Administration Dates Next Due COVID-19 mRNA, LNP-s, No Pre serve, 2-Dose Series ([employer]) 03/30/2022,06/19/2021,11/11/2020,10/21 COVID-19, MRNA-LNP, 24-25, P R, 30MCG/0.3ML, IM, 12YRS AND ABOVE ([facility]) 05/25/2024 COVID-19, MRNA-LNP, PF, 30 M CG/0.3 mL, 12 YRS AND ABOVE, IM ([facility]) 11/25/2023 Covid-19, Mrna, Lnp-s, Pf, B ivalent, 30 Mcg, IM, 12 yrs and above ([employer]) 06/15/2022 H1N1 2008 Influenza, IM 10/27/2009 Pneumococcal Conjugate Vacci ne, 20-valent ([id number]) 06/07/2022 Pneumococcal Polysaccharide PPV23 (Pneumovax) 10/22/2006 Season [...] PM EDT documented as of this encounter Plan of Treatment Upcoming Encounters Date Type Department Care Team (Late st Contact Info) Description 09/28/2024 1:00 PM EST Office Visit Family Practice, [facility] Arguello [address] [phone] Shalom Lieberman MD [address] [id number] Health Maintenance Due Date Last Done Comments Adult Wellness Visit 03/08/2024 03/08/2023, 03/07/2022, 02/21/2021 Depression Screening 03/08/2024 03/08/2023 GFR 07/01/2024 12/31/2023, 09/16, 12/17/2022, Additional history exists COVID-19 Vaccine ( season) 2024 05/25/2024, 11/25/2023, 06/20/2023, Additional history exists CKD HGB USE SMARTSET 74525 09/25/202409/25, 06/27/2022, 12/29/2021, Additional history exists CKD PHOS USE SMARTSET 08693 09/25/202409/16, 06/27/2022, 03/07/2022 Albumin/Creatinine Ratio 12/30/2024 12/31/2023, 0411/2022 DTap/Tdap Vaccines (2 - Td or Tdap) [...] Not on filedocumented as of this encounter Procedures Procedure Name Priority Date/Time Associated Diagnosis Comments XR CHEST 1 VIEW Routine 08/09/2024 documented in this encounter Results * XR CHEST 1 VIEW (08/09/2024) Anatomical Region Laterality Modality Chest Other 08/09/2024 us Samer Mikey Zarate MD RADIOLOGY (RAD GENERAL) Fi nal Result documented in this encounter Care Teams Grocery Associate Relationship Specialty Start Date End Date Noelle Duron MD [address] [place] [address] PCP - General Internal Medicine 03/27/24 documented as of this encounter
[2024-08-11 15:01] VITALS: RESP 18
[2024-08-11] MEDS: ACETAMINOPHEN 325 MG TAB PO PRN (16:28)
--- NOTE | 2024-08-11 16:28 | Psychiatric Consultation ---
Date of Consultation August 11, 2024 Impression / Recommendations Impression Diagnostically consistent with unspecified depressive disorder and unspecified anxiety in the context of history many years ago of panic disorder and recent IN in June now with increased somatic preoccupation, distress and recurrent panic attacks requiring multiple ED visits since June. Appropriate for inpatient geriatric psychiatry treatment for diagnostic clarification and medication management. For now would continue his current psychiatric medications. Acute risk of self-harm currently is low as he denies SI and feels safe in the hospital but chronic risk is moderate given worsening panic symptoms and report of recent suicidal statements to his family. Inpatient psychiatric treatment for improved management of his mood symptoms likely to be most significant modifiable risk factor/intervention. He feels comfortable alerting staff if he were to develop SI in the inpatient setting and shows me how he can contact his nurse using his call button. Overall, I spent a total of 45 minutes with this case including review of chart records, review of labwork, review of EKG QTc, direct evaluation of the patient at bedside, counseling the patient, discussion of the patient with the Nurse and with the hospitalist provider, discussion with the psychiatric liason during clinical rounds, review of collateral historian information from the family and documentation in the electronic health record. (1) Anxiety: (2) Anxiety about health: (3) Depression, unspecified: (4) Panic attack: Plan -Plan for transfer for inpatient geriatric psychiatry for further medication adjustments to better control acute mood changes -Continue sertraline 200mg daily, trazodone 150mg HS and Buspar 5mg TID given plan for geriatric psychiatry placement -Encourage deep breathing, relaxation strategies for restlessness/anxiety -If SI re-emerges then would need 1-on-1 and suicide precautions Psych History Identifying Data Kai Wilkerson is an 84 yo man with a history of panic disorder many years ago, CAD status post stent in June 2024, hypertension, hyperlipidemia, history of pituitary adenoma surgery, panhypopituitarism(growth hormone deficiency, ACTH deficiency, central hypogonadism, toxic multinodular goiter as per records), hyperprolactinemia as per records, chronic steroid Rx, chronic kidney disease (baseline creatinine 1.4), chronic anemia (baseline hemoglobin 12-13), melanoma as per records BPH, anxiety/mood disorder, history of DVT as per records, chr onic back pain admitted medically for worsening anxiety and chest pain while awaiting referrals for geriatric psychiatry placement. Psychiatry consulted for recommendations for anxiety. Chief Complaint "Some days are just awful". History of Present Illness Ronny was admitted following 6 recent visits to the emergency department for physical complaints felt to be due to increased anxiety and panic attacks following a heart attack and s/p stent placement in mid June. Cardiac workups since his IN and stent placement have all been reassuring, suggesting anxiety as main contributing factor. Today he reports ongoing anxiety and sense that his leg is hurting but cannot identify specific nature of the pain or location. Rather desires medication and reassurance from the nurse. Notes a history of panic disorder many years ago that went away with time. He denies any significant stressors noting financial stability and good social support. He doesn't know why this increased anxiety is happening and is agreeable with plan for further treatment and medication adjustments if indicated. Additional recent history per ED CM documentation on 08/10/2024: "Met with Ronny and his family at bedside at Dr. Nance request. This is Carrol 6th visit to the Emergency Department this month. His adult children and at bedside share that Ronny has been acutely anxious since mid-June when he had a heart attack and four stents placed. He has hardly been eating or sleeping as he keeps con vincing himself that he is having another heart attack. He often states to his family that he hurts everywhere but then when asked for each body part, he denies pain. His children state he feels confused most of the day and walks around talking to himself. He has made statements to his and children like, Just shoot me and Roll me down the hill into a landfill so I can . A few weeks ago, he called his son and asked him to remove the revolver from his home. Carrol children report that his 80-year old essentially shadows him throughout the day to ensure that he does not harm himself. No aggression. Ronny is agreeable to going inpatient to receive help. His family is hopeful for inpatient treatment. He has been prescribed Buspar and Hydroxyzine by his PCP with no improvement in symptoms." Allergies Allergy/AdvReac Type Severity Reaction Status Date / Time lidocaine [From Lidoderm] AdvReac Mild Itching Verified 08/03/24 12:34 Home Medications Medication Instructions Recorded Confirmed Type ascorbic acid (vitamin C) 500 mg 500 mg PO DAILY 08/07/24 08/10/24 History tablet aspirin 81 mg tablet,delayed 81 mg PO DAILY 08/07/24 08/10/24 History release atorvastatin 40 mg tablet 40 mg PO DAILY 08/07/24 08/10/24 History bumetanide 1 mg tablet 1 mg PO DAILY 08/07/24 08/10/24 History buspirone 5 mg tablet 5 mg PO TID 08/07/24 08/10/24 History dicyclomine 20 mg tablet 20 mg PO TID 08/07/24 08/10/24 History dutasteride 0.5 mg-tamsulosin ER 2 cap PO DAILY 08/07/24 08/10/24 History 0.4 mg capsule ext.release 24hr mphas hydrocortisone 5 mg tablet 15 mg PO HS 08/07/24 08/10/24 History hydrocortisone 5 mg tablet 25 mg PO DAILY 08/07/24 08/10/24 History hydroxyzine HCl 10 mg tablet 10 mg PO QID PRN Anxiety 08/07/24 08/10/24 History isosorbide mononitrate 30 mg 30 mg PO DAILY 08/07/24 08/10/24 History tablet,extended release 24 hr lisinopril 20 mg tablet 20 mg PO DAILY 08/07/24 08/10/24 History magnesium 250 mg tablet 250 mg PO DAILY 08/07/24 08/10/24 History methimazole 5 mg tablet 5 mg PO DAILY 08/07/24 08/10/24 History metoprolol succinate 50 mg 50 mg PO BID 08/07/24 08/10/24 History tablet,extended release 24 hr multivitamin 1 tab PO DAILY 08/07/24 08/10/24 History nitroglycerin 0.4 mg sublingual 0.4 mg sublingual UD 08/07/24 08/10/24 History tablet omeprazole 20 mg capsule,delayed 20 mg PO DAILY 08/07/24 08/10/24 History release potassium chloride 20 mEq 20 meq PO DAILY 08/07/24 08/10/24 History tablet,extended release sertraline 100 mg tablet 200 mg PO DAILY 08/07/24 08/10/24 History ticagrelor 90 mg tablet (Brilinta) 90 mg PO BID 08/07/24 08/10/24 History trazodone 150 mg tablet 150 mg PO HS 08/07/24 08/10/24 History acetaminophen 300 mg-codeine 30 mg 1 tab PO DAILY PRN pain #10 tabs 08/08/24 08/10/24 Rx tablet Patient History Medical History Vitamin D deficiency History of DVT (deep vein thrombosis) Blind left eye Chronic cholecystitis Multiple renal cysts REPORTS ONLY HAS 1 FUNCTIONING KIDNEY - FOLLOWS W/ DR. TORRES BPH (benign prostatic hyperplasia) IBS (irritable bowel syndrome) GERD (gastroesophageal reflux disease) History of melanoma Hearing deficit BL MCRAE Lumbar herniated disc MULTIPLE Surgical History Hx laparoscopic cholecystectomy (06/03/19) Laparoscopic Cholecystectomy Dr. 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 Status post trigger finger release History of esophagogastroduodenoscopy (EGD) 04/20/2019. MAC no issues. History of colonoscopy History of melanoma excision CHEST - W/ SKIN GRAFTING. (LEFT GROIN DONOR SITE) Family History Sister Family hx of colon cancer Father Tobacco use Coronary heart disease Mother Diverticulosis of intestine Sister Ovarian cancer Colon cancer Grandfather Cancer Aunt Cancer Uncle Cancer Grandmother (Maternal) Cancer Other No significant family history Social History Smoking Status: Former smoker Second Hand Exposure: No; Do You Dip or Chew Tobacco: No; Hx Alcohol Use: No Hx Substance Use: No Preferred Language: Bahraini Communication Ability: Impaired Visual Impairment: No Limitations Director Of Photography Required: No Beliefs That Will Affect Care: None Current Living Situation: Spouse Other Information That Helps Us Care for You: No Feels Safe at Home: Yes Safety Concerns: Feels Safe At This Time Assistive Devices: Walker Physical Exam Psychiatric: Orientation: alert and oriented x 3 Apperance: appropriately dressed and appropriately groomed Eye Contact: good eye contact Motor Behavior: no abnormal motor movements Speech: normal rate/rhythm/volume of speech (soft) Affect: + anxious affect Mood: + anxious mood Thought Process: + looseness of associations Thought Content: + preoccupation Suicidal Thoughts: denies suicidal thoughts (but reportedly made statements to his family of not wanting to be alive) Homicidal Thoughts: denies homicidal thoughts Insight: + limited insight Judgment: + limited judgement Vital Signs (Past 24 Hours): Last Vital Signs Temp 36.8 C 08/11/24 15:00 Pulse 65 08/11/24 15:00 Resp 18 08/11/24 15:00 BP 129/72 08/11/24 15:00 Pulse Ox 97 08/11/24 15:00 O2 Del Method Room Air 08/11/24 16:15 Results & Data (PSY) Medications Administered Acetaminophen/Codeine Phosphate (Acetaminophen W/Codeine #3 1 Tab) 1 tab PO DAILY PRN PRN Reason: pain Stop: 09/09/24 22:29 Last Admin: 08/11/24 11:46 Dose: 1 tab Documented By: Admin: 08/10/24 22:58 Dose: 1 tab Documented By: PETERSON Ascorbic Acid (Ascorbic Acid 500 Mg Tab) 500 mg PO DAILY TOD Stop: 09/10/24 08:59 Last Admin: 08/11/24 09:28 Dose: 500 mg Documented By: BC Aspirin (Aspirin 81 Mg Ectab) 81 mg PO DAILY TOD Stop: 09/10/24 08:59 Last Admin: 08/11/24 09:23 Dose: 81 mg Documented By: BC Atorvastatin Calcium (Atorvastatin 40 Mg Tab) 40 mg PO DAILY TOD Stop: 09/10/24 08:59 Last Admin: 08/11/24 09:26 Dose: 40 mg Documented By: AVE Bumetanide (Bumetanide 1 Mg Tab) 1 mg PO DAILY TOD Stop: 09/10/24 08:59 Last Admin: 08/11/24 09:21 Dose: 1 mg Documented By: BC Buspirone HCl (Buspirone 5 Mg Tab) 5 mg PO TID TOD Stop: 09/10/24 08:59 Last Admin: 08/11/24 14:40 Dose: 5 mg Documented By: Admin: 08/11/24 09:23 Dose: 5 mg Documented By: BC Dicyclomine HCl (Dicyclomine Hcl 20 Mg Tab) 20 mg PO TID TOD Stop: 09/10/24 08:59 Last Admin: 08/11/24 14:40 Dose: 20 mg Documented By: Admin: 08/11/24 09:23 Dose: 20 mg Documented By: BC Finasteride (Finasteride 5 Mg Tab) 5 mg PO DAILY TOD Stop: 09/10/24 08:59 Last Admin: 08/11/24 09:27 Dose: 5 mg Documented By: BC Heparin Sodium (Porcine) (Heparin Sod 5,000 Unit/0.5 Ml Vial) 5,000 units SQ Q12 TOD Stop: 09/10/24 08:59 Last Admin: 08/11/24 09:36 Dose: 5,000 units Documented By: BC Hydrocortisone (Hydrocortisone 10 Mg Tab) 25 mg PO DAILY TOD Stop: 09/10/24 08:59 Last Admin: 08/11/24 09:21 Dose: 25 mg Documented By: BC Hydroxyzine HCl (Hydroxyzine Hcl 10 Mg Tab) 10 mg PO QID PRN PRN Reason: Anxiety Stop: 09/09/24 22:29 Last Admin: 08/11/24 09:26 Dose: 10 mg Documented By: BC Isosorbide Mononitrate (Isosorbide Pierce Extended Rel 30 Mg Tabcr) 30 mg PO DAILY TOD Stop: 09/10/24 08:59 Last Admin: 08/11/24 09:21 Dose: 30 mg Documented By: BC Lisinopril (Lisinopril 20 Mg Tab) 20 mg PO DAILY TOD Stop: 09/10/24 08:59 Last Admin: 08/11/24 09:26 Dose: 20 mg Documented By: BC Lorazepam (Lorazepam 2 Mg/1 Ml Vial) 0.25 mg IV Q4H PRN PRN Reason: Anxiety/Agitation Stop: 09/09/24 22:29 Last Admin: 08/11/24 05:23 Dose: 0.25 mg Documented By: PETERSON Magnesium Oxide (Magnesium Oxide 400 Mg Tab) 200 mg PO DAILY TOD Stop: 09/10/24 08:59 Last Admin: 08/11/24 09:23 Dose: 200 mg Documented By: BC Methimazole (Methimazole 5 Mg Tablet) 5 mg PO DAILY TOD Stop: 09/10/24 08:59 Last Admin: 08/11/24 09:21 Dose: 5 mg Documented By: BC Metoprolol Succinate (Metoprolol Succ 50mg Ext Rel Tab) 50 mg PO BID TOD Stop: 09/10/24 08:59 Last Admin: 08/11/24 09:27 Dose: 50 mg Documented By: AVE Multivitamins (Multivitamin Tab) 1 tab PO DAILY TOD Stop: 09/10/24 08:59 Last Admin: 08/11/24 09:28 Dose: 1 tab Documented By: AVE Pantoprazole Sodium (Pantoprazole 40 Mg Tab) 40 mg PO DAILY TOD Stop: 09/10/24 08:59 Last Admin: 08/11/24 09:26 Dose: 40 mg Documented By: AVE Potassium Chloride (Potassium Chloride Crtab 20 Meq Tabcr) 20 meq PO DAILY TOD Stop: 09/10/24 08:59 Last Admin: 08/11/24 09:36 Dose: 20 meq Documented By: AVE Sertraline HCl (Sertraline Hcl 100 Mg Tablet) 200 mg PO DAILY TOD Stop: 09/10/24 08:59 Last Admin: 08/11/24 09:28 Dose: 200 mg Documented By: AVE Tamsulosin HCl (Tamsulosin Hcl 0.4 Mg Cap) 0.4 mg PO DAILY TOD Stop: 09/10/24 08:59 Last Admin: 08/11/24 09:29 Dose: 0.4 mg Documented By: AVE Ticagrelor (Ticagrelor 90 Mg Tab) 90 mg PO BID TOD Stop: 09/10/24 08:59 Last Admin: 08/11/24 09:23 Dose: 90 mg Documented By: AVE Coding Level of Care Code 19954 IN/OBS CONSULT LVL 3,45M Diagnoses Anxiety F41.9 Anxiety about health R45.89 Depression, unspecified F32.A Panic attack F41.0
--- NOTE | 2024-08-11 17:08 | Discharge Summary ---
Date of Service August 11, 2024 Admission HPI Per Admitting Provider 84-year-old male with past medical history significant for CAD status post stent in June 2024, hypertension, hyperlipidemia, history of pituitary adenoma surgery, panhypopituitarism(growth hormone deficiency, ACTH deficiency, central hypogonadism, toxic multinodular goiter as per records), hyperprolactinemia as per records, chronic steroid Rx, chronic kidney disease (baseline creatinine 1.4), chronic anemia (baseline hemoglobin 12-13), melanoma as per records BPH, anxiety/mood disorder, history of DVT as per records, chronic back pain , past tobacco abuse who lives at home with his currently ambulating with walker comes because of chest pain and anxiety. Patient was recently admitted to hospital on 08/07/24 and was discharged on 08/08/2024. He is admitted for chest pain and back pain. He had some elevation of troponin but trended down. Echo revealed stable findings and was evaluated by cardiology and advised to continue previous medications. For back pain he was supposed to see pain manag ement coming Saturday. Patient also somewhat had anxiety attacks while in the hospital. As per yesterday patient complained of pain all over and he wanted to go to [facility]. As per at [facility] workup was unremarkable and was told that he was having panic attacks. Today again in the morning complained of chest pain and was very agitated that the son had to come for help. Currently plan is to place him in geriatric senior care. Case management working on placement. Patient received p.o. Ativan in the ER. Currently patient is calm. Alert and oriented x 3. Says he gets anxious.Currently says his back pain is okay. Denies any chest pain currently. No headache. No runny nose or sore throat . No cough. Afebrile. No shortness of breath. No nausea or abdominal pain. States normal bowel and bladder movements. Hemodynamics are okay. In June patient was admitted for non-ST OK and status post stent. And he had since then admitted for delirium possible from Vicodin and also admitted for recurrent chest pain and cardiac cath showed patent stents on July 10. He was also admitted on July 29 for hypotension CELI and diarrhea. Past medical history. As mentioned above Past surgical history. Colonoscopy and EGD. Injection of lumbosacral spine. Removal of pituitary gland in 2019. S/p cardiac catheter and stent placement. Social history. . Quit smoking 1968. No alcohol use. No drug use. Family history. Daughter had breast cancer. Father had CHF. Mother had OK Admission Exam Per Admitting Provider General- Not in distress Head- atraumatic Eyes- PERRL. ENT- oropharynx clear Neck- supple, no JVD. Lungs- clear to auscultation no wheezing or crackles Heart- regular rate and rhythm; no murmur, no gallop. Abdomen- normal bowel sounds, soft, nontender, no distension. Extremities- no pretibial edema, no erythema seen. Neuro- alert, oriented x 3; PERRL, no facial palsy; no dysarthria; moves extremities. Skin- warm & dry Principal Diagnosis Anxiety, chest pains Discharge Data Allergies Allergy/AdvReac Type Severity Reaction Status Date / Time lidocaine [From Lidoderm] AdvReac Mild Itching Verified 08/03/24 12:34 Consultations 08/10/24 20:42 ED Decision to Admit Stat 08/11/24 08:00 Consult Psychiatry Routine Discharge Plan Discharge Items Patient Disposition: Transfer Behavioral Health Fac Reason For Visit: CHEST PAIN, ANXIETY/PANIC ATTACKS Discharge Diagnosis: Anxiety, chest pains Activity: Per Instructions section Non-emergency contact: Primary Care Provider, Specialist and Psychiatrist Call non-emergency contact if: you have any medication questions and your symptoms worsen Follow-up/Referrals: Shalom Lieberman MD [Primary Care Provider] - Diet: Heart Healthy Addtl Attending Provider Instructions: Patient to be transferred to [facility] for geriatric psychiatry. Pending Studies at Discharge: No Stand-Alone Forms: [facility] Medications and DC Order Prescriptions: Continued atorvastatin 40 mg tablet 40 mg PO DAILY buspirone 5 mg tablet 5 mg PO TID metoprolol succinate 50 mg tablet extended release 24 hr 50 mg PO BID lisinopril 20 mg tablet 20 mg PO DAILY isosorbide mononitrate 30 mg tablet extended release 24 hr 30 mg PO DAILY sertraline 100 mg tablet 200 mg PO DAILY aspirin 81 mg Tablet,Delayed Release (Dr/Ec) 81 mg PO DAILY dicyclomine 20 mg tablet 20 mg PO TID trazodone 150 mg tablet 150 mg PO HS nitroglycerin 0.4 mg tablet, sublingual 0.4 mg sublingual UD Rx Instructions: q5min prn chest pain x3 methimazole 5 mg tablet 5 mg PO DAILY omeprazole 20 mg capsule,delayed release(DR/EC) 20 mg PO DAILY bumetanide 1 mg tablet 1 mg PO DAILY Brilinta 90 mg tablet 90 mg PO BID potassium chloride 20 mEq tablet extended release 20 meq PO DAILY multivitamin Tablet 1 tab PO DAILY hydrocortisone 5 mg Tablet 15 mg PO HS hydrocortisone 5 mg Tablet 25 mg PO DAILY ascorbic acid (vitamin C) 500 mg Tablet 500 mg PO DAILY magnesium 250 mg Tablet 250 mg PO DAILY hydroxyzine HCl 10 mg Tablet 10 mg PO QID PRN (Reason: Anxiety) dutasteride-tamsulosin 0.5-0.4 mg Capsule, Er Multiphase 24 Hr 2 cap PO DAILY acetaminophen-codeine 300-30 mg Tablet 1 tab PO DAILY PRN (Reason: pain) Qty: 10 0RF Admission Data Admit Date/Time: 08/10/24 21:37 Attending Provider: Parish Cox Admit Provider: Zach Sears Primary Care Provider: Shalom Lieberman Other Providers: Zach Sears; Alexandria Khan; Jagjit Hays; Kathe Ahuja; Susana Blum; Danis Solares; Rosi Gongora
[2024-08-11] MEDS: KETOROLAC TROMETHAMINE 15 MG/ML VIAL IV ONE (17:55)
[2024-08-11] MEDS: LIDOCAINE 5% 1 PATCH TD STA (17:55)
--- NOTE | 2024-08-11 18:27 | Electrocardiogram Report ---
Test Reason : Blood Pressure : */* mmHG Vent. Rate : 67 BPM Atrial Rate : 67 BPM P-R Int : 162 ms QRS Dur : 92 ms QT Int : 434 ms P-R-T Axes : 34 -39 -37 degrees QTcB Int : 458 ms Normal sinus rhythm Left axis deviation Inferior infarct (cited on or before 08-Aug-2024) T wave abnormality, consider anterolateral ischemia Abnormal ECG When compared with ECG of 10-Aug-2024 12:28, No significant change was found Confirmed by Xander Mae ([id number]) on 08/11/2024 6:26:48 PM Referred By: REFERRED SELF Confirmed By: Xander Mae
[2024-08-11] MEDS: traZODone HCL 50 MG TAB PO SCH (21:59)
[2024-08-12 08:15] VITALS: BP 174/76; PULSE 67; TEMP 97.5; O2SAT 97
--- NOTE | 2024-08-12 11:12 | Discharge Summary ---
Discharge Summary Date of Service August 12, 2024 Principal Dx & Hospital Course #1 = Principal Diagnosis (1) Chest pain: per Dr. Cox's notes with addendum: 84-year-old male with past medical history significant for CAD status post stent in June 2024, hypertension, hyperlipidemia, history of pituitary adenoma surgery, panhypopituitarism(growth hormone deficiency, ACTH deficiency, central hypogonadism, toxic multinodular goiter as per records), hyperprolactinemia as per records, chronic steroid Rx, chronic kidney disease (baseline creatinine 1.4), chronic anemia (baseline hemoglobin 12-13), melanoma as per records BPH, anxiety/mood disorder, history of DVT as per records, chronic back pain , past tobacco abuse who lives at home with his currently ambulating with walker comes because of chest pain and anxiety. Patient was recently admitted to hospital on 08/07/24 and was discharged on 08/08/2024. He is admitted for chest pain and back pain. He had some elevation of troponin but trended down. Echo revealed stable findings and was evaluated by cardiology and advised to continue previous medications. For back pain he was supposed to see pain management coming Saturday. Patient also somewhat had anxiety attacks while in the hospital. As per yesterday patient complained of pain all over and he wanted to go to [facility]. As per at [facility] workup was unremarkable and was told that he was having panic attacks. Today again in the morning complained of chest pain and was very agitated that the son had to come for help. Currently plan is to place him in geriatric intermediate. Case management working on placement. Patient received p.o. Ativan in the ER. Currently patient is calm. Alert and oriented x 3. Says he gets anxious.Currently says his back pain is okay. Denies any chest pain currently. No headache. No runny nose or sore throat . No cough. Afebrile. No shortness of breath. No nausea or abdominal pain. States normal bowel and bladder movements. Hemodynamics are okay. In June patient was admitted for non-ST NC and status post stent. And he had since then admitted for delirium possible from Vicodin and also admitted for recurrent chest pain and cardiac cath showed patent stents on July 10. He was also admitted on July 29 for hypotension CELI and diarrhea. Chest pain troponins 40s-50s EKG reviewed - w/o significant change from previous Troponins are better than recent admission Recently had negative cardiac workup Patient states he has anxiety -- no chest pain or cardiac symptoms on discharge day Anxiety Panic attacks Agitations Ativan as needed Psychiatry consulted Plan for geriatric nursing placement -- accepted for transfer to Geriatric Psych facility today as per Psych liaison Back pain Lumbar spinal stenosis Ongoing Continue home pain medications will monitor Has appointment with pain management CAD s/p stent Aspirin ,Brilinta, metoprolol succinate, atorvastatin CKD stage III Creatinine 1.3 around baseline History of velez hypopituitarism (growth hormone deficiency, ACTH deficiency, central hypogonadism, toxic multinodular goiter as per records) H/O pituitary adenoma surgery Follows with endocrinology Continue home hydrocortisone, methimazole Multicystic kidney disease and multiple hepatic cysts and CAT scan last admit Follow-up as outpatient Chronic anemia Hemoglobin 11.5 around baseline Anxiety/mood disorder On buspirone DVT prophylaxis Heparin subcu given Disposition transfer to Geriatric Psych Facility Full code Notes For Next Care Provider Medication Changes From Visit None Admission HPI Per Admitting Provider 84-year-old male with past medical history significant for CAD status post stent in June 2024, hypertension, hyperlipidemia, history of pituitary adenoma surgery, panhypopituitarism(growth hormone deficiency, ACTH deficiency, central hypogonadism, toxic multinodular goiter as per records), hyperprolactinemia as per records, chronic steroid Rx, chronic kidney disease (baseline creatinine 1.4), chronic anemia (baseline hemoglobin 12-13), melanoma as per records BPH, anxiety/mood disorder, history of DVT as per records, chronic back pain , past tobacco abuse who lives at home with his currently ambulating with walker comes because of chest pain and anxiety. Patient was recently admitted to hospital on 08/07/24 and was discharged on 08/08/2024. He is admitted for chest pain and back pain. He had some elevation of troponin but trended down. Echo revealed stable findings and was evaluated by cardiology and advised to continue previous medications. For back pain he was supposed to see pain management coming Saturday. Patient also somewhat had anxiety attacks while in the hospital. As per yesterday patient complained of pain all over and he wanted to go to [facility]. As per at [facility] workup was unremarkable and was told that he was having panic attacks. Today again in the morning complained of chest pain and was very agitated that the son had to come for help. Currently plan is to place him in geriatric intermediate. Case management working on placement. Patient received p.o. Ativan in the ER. Currently patient is calm. Alert and oriented x 3. Says he gets anxious.Currently says his back pain is okay. Denies any chest pain currently. No headache. No runny nose or sore throat . No cough. Afebrile. No shortness of breath. No nausea or abdominal pain. States normal bowel and bladder movements. Hemodynamics are okay. In June patient was admitted for non-ST NC and status post stent. And he had since then admitted for delirium possible from Vicodin and also admitted for recurrent chest pain and cardiac cath showed patent stents on July 10. He was also admitted on July 29 for h ypotension CELI and diarrhea. Admission Exam Per Admitting Provider General- Not in distress Head- atraumatic Eyes- PERRL. ENT- oropharynx clear Neck- supple, no JVD. Lungs- clear to auscultation no wheezing or crackles Heart- regular rate and rhythm; no murmur, no gallop. Abdomen- normal bowel sounds, soft, nontender, no distension. Extremities- no pretibial edema, no erythema seen. Neuro- alert, oriented x 3; PERRL, no facial palsy; no dysarthria; moves extremities. Skin- warm & dry Discharge Exam General- oriented x 3, not in distress, speaks in sentences with no effort or accessory muscle use Eyes- anicteric Neck- no JVD Lungs- clear breath sounds bilaterally, no rales/wheezes Heart- normal rate, regular rhythm; no murmurs Abdomen- normal bowel sounds, nondistended, soft, nontender Extremities- no pretibial edema, no calf tenderness Neuro- alert, oriented x 3; no gross focal neurologic deficits Skin- warm & dry Updated Medication List Medication Instructions Recorded Confirmed Type ascorbic acid (vitamin C) 500 mg 500 mg PO DAILY 08/07/24 08/10/24 History tablet aspirin 81 mg tablet,delayed 81 mg PO DAILY 08/07/24 08/10/24 History release atorvastatin 40 mg tablet 40 mg PO DAILY 08/07/24 08/10/24 History bumetanide 1 mg tablet 1 mg PO DAILY 08/07/24 08/10/24 History buspirone 5 mg tablet 5 mg PO TID 08/07/24 08/10/24 History dicyclomine 20 mg tablet 20 mg PO TID 08/07/24 08/10/24 History dutasteride 0.5 mg-tamsulosin ER 2 cap PO DAILY 08/07/24 08/10/24 History 0.4 mg capsule ext.release 24hr mphas hydrocortisone 5 mg tablet 15 mg PO HS 08/07/24 08/10/24 History hydrocortisone 5 mg tablet 25 mg PO DAILY 08/07/24 08/10/24 History hydroxyzine HCl 10 mg tablet 10 mg PO QID PRN Anxiety 08/07/24 08/10/24 History isosorbide mononitrate 30 mg 30 mg PO DAILY 08/07/24 08/10/24 History tablet,extended release 24 hr lisinopril 20 mg tablet 20 mg PO DAILY 08/07/24 08/10/24 History magnesium 250 mg tablet 250 mg PO DAILY 08/07/24 08/10/24 History methimazole 5 mg tablet 5 mg PO DAILY 08/07/24 08/10/24 History metoprolol succinate 50 mg 50 mg PO BID 08/07/24 08/10/24 History tablet,extended release 24 hr multivitamin 1 tab PO DAILY 08/07/24 08/10/24 History nitroglycerin 0.4 mg sublingual 0.4 mg sublingual UD 08/07/24 08/10/24 History tablet omeprazole 20 mg capsule,delayed 20 mg PO DAILY 08/07/24 08/10/24 History release potassium chloride 20 mEq 20 meq PO DAILY 08/07/24 08/10/24 History tablet,extended release sertraline 100 mg tablet 200 mg PO DAILY 08/07/24 08/10/24 History ticagrelor 90 mg tablet (Brilinta) 90 mg PO BID 08/07/24 08/10/24 History trazodone 150 mg tablet 150 mg PO HS 08/07/24 08/10/24 History acetaminophen 300 mg-codeine 30 mg 1 tab PO DAILY PRN pain #10 tabs 08/08/24 08/10/24 Rx tablet Hospital Stay Data Consultations 08/10/24 20:42 ED Decision to Admit Stat 08/11/24 08:00 Consult Psychiatry Routine Pending Results Patient Have Any Pending Studies at Discharge: No Discharge Instructions Given to Patient (Per Discharging Provider) Patient to be transferred to [facility] for geriatric psychiatry. Total Time Total Time Spent Total Time Spent (In Minutes): 40 minutes
[2024-08-12] MEDS: LORazepam 0.5 MG TAB PO STA (11:57)
[2024-08-14 21:32] LABS: Codeine Urine 2360 ng/mL (<50); Hydrocodone Urine NEGATIVE ng/mL (<50); Hydromor Urine NEGATIVE ng/mL (<50); MDA negative; MDEA negative; MDMA (Ecstasy) Urine, Confirm negative; Morphine Urine 386 ng/mL (<50); Norhydrocodone Conf Ur NEGATIVE ng/mL (<50); Noroxycodone Urine NEGATIVE ng/mL (<50); Oxycodone Urine NEGATIVE ng/mL (<50); Oxymorph Urine NEGATIVE ng/mL (<50)
== END 2024-08-12 12:49 | DRG 313 ==
LOC: ED 12:10 → 2N 21:37 → SUATTDRO 21:37 → INTOOBSV 21:37 → 2N 22:16 → 2W 08-11 19:46

== ENCOUNTER 2024-08-22 10:50 | Inpatient (IN) ==
[2024-08-22] MEDS: KETOROLAC TROMETHAMINE 15 MG/ML VIAL IV ONE (11:55)
[2024-08-22 12:06] LABS: Basophils # (auto) 0.06 K/uL (0.00-0.20); Basophils % (auto) 0.5 %; Eosinophils # (auto) 0.26 K/uL (0.00-0.50); Hematocrit (blood only) 36.7 % (42.0-52.0); Hemoglobin 12.5 g/dl (14.0-18.0); Immature Granulocytes % (auto) 0.8 %; Lymphocytes % (auto) 15.1 %; Mean Corpuscular Hgb Conc 34.1 g/dL (32.0-36.0); Mean Corpuscular Volume 93.9 fL (80.0-100.0); Mean Platelet Volume 11.4 fL (9.4-12.4); Monocytes # (auto) 0.62 K/uL (0.11-0.59); Monocytes % (auto) 4.7 %; Neutrophils # (auto) 10.24 K/uL (1.40-6.50); Neutrophils % (auto) 76.9 %; Platelet Count 174 K/uL (130-400); RDW Coefficient of Variation 13.9 % (11.5-14.5); RDW Standard Deviation 47.4 fL (36.4-46.3); Red Blood Count 3.91 M/uL (4.70-6.10); White Blood Count 13.28 K/ul (4.8-10.8)
[2024-08-22] MEDS: ACETAMINOPHEN 1,000 MG/100 ML VIAL IV STA (12:18)
[2024-08-22 12:26] LABS: Alanine Aminotransferase 20 U/L (7-52); Alkaline Phosphatase 83 U/L (34-104); Anion Gap 13 (3-11); Aspartate Aminotransferase 24 U/L (13-39); BUN Creatinine Ratio 16.5 (10-20); Bilirubin Direct 0.1 mg/dl (0-0.2); Bilirubin,Total 0.9 mg/dl (0.2-1.0); Blood Urea Nitrogen 29 mg/dl (6-23); Calcium 9.7 mg/dl (8.6-10.3); Carbon Dioxide 25 mmol/L (21-32); Chloride 100 mmol/L (98-107); Glucose 86 mg/dl (70-99(Fasting)); Lipase 51 U/L (11-82); Potassium 3.6 mmol/L (3.5-5.1); Sodium 138 mmol/L (136-145); Total Protein 6.4 gm/dl (6.0-8.3)
[2024-08-22] MEDS: ALUMINUM/MAGNESIUM SUSP 30 ML UDC PO STA (13:22)
[2024-08-22] MEDS: DICYCLOMINE HCL 10 MG CAP PO ONE (13:22)
--- NOTE | 2024-08-22 14:17 | XRay Report ---
EXAM: Radiograph of the Abdomen 1 View INDICATION: Several days of severe abdominal pain. TECHNIQUE: Frontal supine view of the abdomen/pelvis. COMPARISON: CT abdomen 08/20/2024 FINDINGS: Limitations: None. Gastrointestinal tract: Typical amounts of stool and gas noted throughout the intestinal tract. Organs: Polycystic right renal shadow with stable approximate 9 x 4 mm calcification associated with an upper pole cyst. No stone seen along the course of either ureter or in the pelvis. Bones/joints: Degenerative changes noted throughout the spine. No acute osseous abnormality seen. Soft tissues: No abnormality noted. No radiopaque foreign body noted. IMPRESSION: 1. Polycystic right renal shadow with stable approximate 9 x 4 mm calcification associated with an upper pole cyst. No stone seen along the course of either ureter or in the pelvis. 2. No intestinal obstruction. ACT 112: Negative or not required by law. Electronically signed by Dunia Galvan 08-22-2024 2:16 PM
--- NOTE | 2024-08-22 16:22 | History & Physical Report ---
Date of Service August 22, 2024 Assessment & Plan (1) Abdominal pain: (2) Depression, unspecified: (3) Anxiety: (4) Hyperthyroidism: (5) Back pain of lumbar region with sciatica: (6) CAD (coronary atherosclerotic disease): (7) Chronic kidney disease, stage III (moderate): (8) Panhypopituitarism: (9) ACTH deficiency: (10) BPH (benign prostatic hyperplasia): Plan Mr. 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 #abdominal pain Miralax daily Ambulation as tolerated bentyl TID increased to 20mg QID Trial of Cymbalta 30mg Abd duplex added given elevated lactate #Mood disorder recently in psych unit, no active SI/HI continue sertraline 200mg continue trazodone 150mg Continue Quetipine 25mg qhs #Chronic Back pain #Lumbar Stenosis history of KHUSHBOO 09/2023, 07/2021 #HTN #Obstructive CAD s/p stent 06/2024 #Recent STEMI, inferolateral June 2024 late presentation inferolateral STEMI. Catheterization with multivessel coronary artery disease, culprit proximal RCA stenosis status post PCI of the RCA with 3 overlapping drug-eluting stents Status post PCI of the mid left circumflex with 1 drug-eluting stent. Residual intermediate stenosis of the mid LAD noted on repeat cardiac catheterization 07/10/2024 as well as branch vessel disease as noted above. Continue ASA and Brillinta Continue Metoprolol Continue Statin Continue bumex daily Continue imdur 30mg continue lisinopril 20mg daily #CKD stage G3a/A2 (moderate impairment). Baseline Cr 1.8-2.0 w/ EGFR 45 cc/min. Urine sediment is benign. Renal US revealed a multicystic R kidney, no solid renal mass * 06/02 Urology evaluation: large R multicystic kidney. Urology indicated that these are simple cysts and did not recommend nephrectomy. Urology advised reevaluation in 1 year, patient declined * Continue KCl 20 mEq daily for correction of hypokalemia #Chronic anemia Stable, at baseline #chronic steroid therapy 2/2 adrenal insufficiency #panhypopituitarism #pituitary tumor follows Dr. Reece Growth hormone: no on growth hormone treatment as of yet Prolactin: Prolactin initially marginally elevated, most recently 67 ng/mL in 2018; since that time has been decreasing, most recent 25 ng/mL in December 2022. Testosterone: Started testosterone replacement in late 2018 Thyroid: continue on methimazole 2.5 mg daily Cortisol: Settled on 20/10 mg with the morning dose at 5:30 a.m.-6:00 am or ? TSH ordered DVT Ppx: SQ heparin Code status: FULL PCP: Domi Dispo: admitted to med/surg Patient seen in collaboration with Dr. Madrigal. Please see addendum. I spent a total of 75 minutes coordinating, documenting, and providing care for this patient excluding time spent in the performance of separately billed services. History of Present Illness Chief Complaint: Abdominal pain, placement Primary Care Provider: Shalom Leiberman MD Mr. 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 Patient with multiple admissions with over 8 visits to hospital in last month. Patient recently discharge 08/11 to an inpatient psychiatric unit. Presents to the ED today with ongoing abdominal pain despite Bentyl use at home, which only alleviates pain slightly. Describes as constant aching. Decreased appetite and has only been drinking broth at home. No nausea or vomiting. Bowels are moving without issue. No CP, SOB. Allergies Allergy/AdvReac Type Severity Reaction Status Date / Time lidocaine [From Lidoderm] AdvReac Mild Itching Verified 08/03/24 12:34 Home Medications Medication Instructions Recorded Confirmed Type ascorbic acid (vitamin C) 500 mg 500 mg PO DAILY 08/07/24 08/22/24 History tablet aspirin 81 mg tablet,delayed 81 mg PO DAILY 08/07/24 08/22/24 History release atorvastatin 40 mg tablet 40 mg PO DAILY 08/07/24 08/22/24 History bumetanide 1 mg tablet 1 mg PO DAILY 08/07/24 08/22/24 History dicyclomine 20 mg tablet 20 mg PO TID 08/07/24 08/22/24 History dutasteride 0.5 mg-tamsulosin ER 1 cap PO HS 08/07/24 08/22/24 History 0.4 mg capsule ext.release 24hr mphas hydrocortisone 5 mg tablet 10 mg PO HS 08/07/24 08/22/24 History hydrocortisone 5 mg tablet 20 mg PO DAILY 08/07/24 08/22/24 History isosorbide mononitrate 30 mg 30 mg PO DAILY 08/07/24 08/22/24 History tablet,extended release 24 hr lisinopril 20 mg tablet 20 mg PO DAILY 08/07/24 08/22/24 History magnesium 250 mg tablet 250 mg PO DAILY 08/07/24 08/22/24 History methimazole 5 mg tablet 2.5 mg PO DAILY 08/07/24 08/22/24 History metoprolol succinate 50 mg 50 mg PO BID 08/07/24 08/22/24 History tablet,extended release 24 hr multivitamin 1 tab PO DAILY 08/07/24 08/22/24 History nitroglycerin 0.4 mg sublingual 0.4 mg sublingual UD 08/07/24 08/22/24 History tablet omeprazole 20 mg capsule,delayed 20 mg PO BID 08/07/24 08/22/24 History release potassium chloride 20 mEq 20 meq PO DAILY 08/07/24 08/22/24 History tablet,extended release sertraline 100 mg tablet 200 mg PO DAILY 08/07/24 08/22/24 History ticagrelor 90 mg tablet (Brilinta) 90 mg PO BID 08/07/24 08/22/24 History trazodone 150 mg tablet 150 mg PO HS 08/07/24 08/22/24 History Tums 1 tab PO DIRECTED PRN Other 08/22/24 08/22/24 History calcium 600 mg (as carbonate)-vit 1 tab PO DAILY 08/22/24 08/22/24 History D3 20 mcg (800 unit) chewable tablet (Caltrate plus D) doxazosin 4 mg tablet 8 mg PO HS 08/22/24 08/22/24 History quetiapine 25 mg tablet (Seroquel) 25 mg PO HS 08/22/24 08/22/24 History testosterone 1 pump topical DAILY 08/22/24 08/22/24 History Past Med/Surg History Problem List Leukocytosis (Acute) Abdominal pain (Acute) Elevated troponin (Acute) Depression, unspecified Elevated troponin (Acute) Chest pain (Acute) Anxiety (Acute) Spinal stenosis (Acute) Chest pain (Acute) Elevated troponin (Acute) Chest pain Chronic pain (Acute) Isolated TSH deficiency Hyperthyroidism Back pain of lumbar region with sciatica (Acute) Anxiety about health (Acute) Ambulatory dysfunction Hypercalcemia (Acute) Adrenal insufficiency (Acute) CAD (coronary atherosclerotic disease) (Acute) Prediabetes 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 Trochanteric bursitis of right hip History of pituitary adenoma Chronic kidney disease, stage III (moderate) (Acute) Dyslipidemia Osteopenia Prostatic hypertrophy Chronic low back pain ACTH deficiency (Chronic) Panhypopituitarism (Chronic) Anemia (Chronic) 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 TORRES BPH (benign prostatic hyperplasia) IBS (irritable bowel syndrome) GERD (gastroesophageal reflux disease) History of melanoma Hearing deficit BL MCRAE Lumbar herniated disc MULTIPLE Surgical History Hx laparoscopic cholecystectomy (06/03/19) Laparoscopic Cholecystectomy Dr. 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 Status post trigger finger release History of esophagogastroduodenoscopy (EGD) 04/20/2019. MAC no issues. History of colonoscopy History of melanoma excision CHEST - W/ SKIN GRAFTING. (LEFT GROIN DONOR SITE) Family History Sister Family hx of colon cancer Father Tobacco use Coronary heart disease Mother Diverticulosis of intestine Sister Ovarian cancer Colon cancer Grandfather Cancer Aunt Cancer Uncle Cancer Grandmother (Maternal) Cancer Other No significant family history Social History Smoking Status: Former smoker Second Hand Exposure: No; Do You Dip or Chew Tobacco: No; Hx Alcohol Use: No Hx Substance Use: No Preferred Language: Bahraini Communication Ability: Impaired Visual Impairment: No Limitations Bowling Alley Refinisher Required: No Beliefs That Will Affect Care: None Current Living Situation: Spouse Feels Safe at Home: Yes Assistive Devices: Walker Review of Systems Review of Systems: At least ten systems reviewed and negative except as noted in the HPI. Physical Exam Physical Exam: Please see addendum for physical exam. Results & Data Results & Data Vital Signs (Past 12 Hours) Vital Signs Temp Pulse Resp BP BP Pulse Ox O2 Del Method 08/22/24 15:22 76 18 142/79 H 99 Room Air 08/22/24 13:00 63 18 136/68 96 08/22/24 11:27 69 18 129/72 96 08/22/24 11:01 35.9 C L 20 92/56 L 98 Room Air Laboratory Results Short CBC 08/22/24 Range/Units 11:24 WBC 13.28 H (4.8-10.8) K/ul Hgb 12.5 L (14.0-18.0) g/dl Hct 36.7 L (42.0-52.0) % Plt Count 174 (130-400) K/uL BMP 08/22/24 11:24 Sodium 138 Potassium 3.6 Chloride 100 Carbon Dioxide 25 BUN 29 H Creatinine 1.76 H Glucose 86 Calcium 9.7 Liver Function 08/22/24 Range/Units 11:24 Total Bilirubin 0.9 (0.2-1.0) mg/dl Direct Bilirubin 0.1 (0-0.2) mg/dl AST 24 (13-39) U/L ALT 20 (7-52) U/L Alkaline Phosphatase 83 (34-104) U/L Albumin 4.0 (3.4-5.0) gm/dl Diagnostic Findings KUB X-Ray 08/22/24 12:57 EXAM: Radiograph of the Abdomen 1 View INDICATION: Several days of severe abdominal pain. TECHNIQUE: Frontal supine view of the abdomen/pelvis. COMPARISON: CT abdomen 08/20/2024 FINDINGS: Limitations: None. Gastrointestinal tract: Typical amounts of stool and gas noted throughout the intestinal tract. Organs: Polycystic right renal shadow with stable approximate 9 x 4 mm calcification associated with an upper pole cyst. No stone seen along the course of either ureter or in the pelvis. Bones/joints: Degenerative changes noted throughout the spine. No acute osseous abnormality seen. Soft tissues: No abnormality noted. No radiopaque foreign body noted. IMPRESSION: 1. Polycystic right renal shadow with stable approximate 9 x 4 mm calcification associated with an upper pole cyst. No stone seen along the course of either ureter or in the pelvis. 2. No intestinal obstruction. ACT 112: Negative or not required by law. Electronically signed by Dunia Galvan 08-22-2024 2:16 PM Supervising Physician Co-Signing Physician Notes I have seen and discussed the case with the collaborating advanced practitioner. I agree with the above H&P. I have reviewed and confirmed the patients medical history, the findings on physical examination, and the patients diagnosis and treatment plan with Rodríguez MARROQUIN and agree with the information documented. In short, Mr. Wilkerson is an 84 yo gentleman presenting multiple times due to vague concerns. Unable to parse out source of abdominal discomfort, attempted duplex mesenteric however, patient ended evaluation 2/2 "anxiety." Will trend lactate, will start Cymbalta for pain/mood. Resume home meds, hold bumex at this time. Psych consult to see if any further optimization to meds. rest of plan as above I spent a total of 30 minutes coordinating, documenting, and providing care for this patient excluding time spent in the performance of separately billed services. All of the aforementioned completed outside of collaborating with the assigned advanced practitioner for a full treatment plan. I have reviewed the advanced practitioner's documentation, and I agree with, and take responsibility for the plan of care (1) Abdominal pain Abdominal location: periumbilical Qualified Code(s): R10.33 - Periumbilical pain (6) CAD (coronary atherosclerotic disease) Associated angina: unspecified whether angina present Coronary Disease- Associated Artery/Lesion type: unspecified vessel or lesion type [place] vs. transplanted heart: [place] heart Qualified Code(s): I25.10 - Atherosclerotic heart disease of [place] coronary artery without angina pectoris (7) Chronic kidney disease, stage III (moderate) Chronic kidney disease stage 3 subtype: unspecified whether 3a or 3b Qualified Code(s): N18.30 - Chronic kidney disease, stage 3 unspecified
[2024-08-22] MEDS ORDERED: CALCIUM CARBONATE 500 MG CHEWABLE TAB PO PRN ×2 (17:08→21:06)
--- NOTE | 2024-08-22 18:26 | Emergency Department Note ---
Impression & Plan Abdominal pain, Anxiety, Unable to care for self, Opioid use disorder, Dementia ED Provider Note NAME: PUJA GROSSMAN AGE: 84 SEX: M : 1940 ARRIVES VIA: Walk-In INFORMANT: Patient, ED PROVIDER(S): Do Deleon MD CHIEF COMPLAINT: Abdominal pain HPI: This is an 84-year-old male present for abdominal pain. Patient has been here approximately 8 times in the past 1 month. Patient notes he has had abdominal pain. He had a CT imaging done in 2 days ago which was within normal limits. He had x-ray done yesterday which tells me which did show signs of obstruction. Otherwise patient reports 06/25 pain here. Previously when seeing the patient, family is concerned about his opiate addiction as he always request opiates for his current pain. He otherwise states it is diffusely tender and painful. He reports normal bowel movements otherwise. ROS: See above HPI for pertinent positives & negatives. A total of 10 systems reviewed and were otherwise negative. PAST MEDICAL HISTORY: See Below PAST SURGICAL HISTORY: See Below FAMILY HISTORY: See Below SOCIAL HISTORY: See Below HOME MEDICATIONS: See Below ALLERGIES: See Below VITALS: See Below PHYSICAL EXAMINATION: General: Anxious appearing, perseverating Head: Normocephalic and atraumatic Eyes: Normal inspection, extraocular muscles intact Ear, nose, throat: Normal external exam Neck: Normal range of motion Respiratory: lungs clear to auscultation bilaterally Cardiovascular: Regular rate/rhythm, no murmur GI: Soft, minimally tender Extremities: nontender, moves all extremities Neuro: The patient awake and alert, appropriately conversive, no focal deficits, symmetric faces Skin: Warm, dry, and intact MEDICAL DECISION MAKING: This is an 84-year-old male presents for abdominal pain. Patient has history of dementia, anxiety, opiate use disorder presents for abdominal pain. At this time I have reviewed the CT imaging done 2 days ago which was within normal limits. I am not able to physically review the images that the tells me about but [facility] which shows no signs of some structure in of any sort. This time is a new patient that 2 negative images for his abdominal pain. Did not believe a repeat CT imaging is required at this time as only been [address] He does have perseveration on opiates at this time. Patient is complaint abdominal pain, I do believe that this is inappropriate to prescribe opioids as she has had numerous issues with this in the past. His and family also encouraged me to deny opioids due to his previous history. -Will do screening blood work otherwise. -Blood was reviewed and within normal limits. His white count is actually downtrending from 2 days ago, from 15 down to 13. Patient given Toradol, Tylenol, Bentyl and GI cocktail without any relief in symptoms. He request opiates directly again to me. -Family has been in the emergency room and 8 times in last 30 days, they are requesting some help as patient is unable to care for at home. [facility] catalytic [facility]. He previous was unable to receive geriatric psychiatric care on last admission here. He went to a further psychiatric facility for 1 week previously which did not help his symptoms. -After discussed with case sealer, it appears the patient is to be in assisted living facility. -Care discussed with Dr. Thuy Madrigal for admission. Differential diagnosis: Opiate use disorder, anxiety, SBO, diverticulitis, bowel perforation Independent History obtained from: Diagnostics interpreted by me: ECG: None Cardiac Monitoring: An order was placed for continuous cardiac monitoring. The monitor shows a rate of 78 with sinus rhythm. Past Med/Surg History Problem List (Updated 08/22/24 @ 19:26 by Do Deleon MD) Dementia (Acute) Opioid use disorder (Acute) Unable to care for self (Acute) Anxiety (Acute) Abdominal pain (Acute) Leukocytosis (Acute) Abdominal pain (Acute) Elevated troponin (Acute) Depression, unspecified Elevated troponin (Acute) Chest pain (Acute) Anxiety (Acute) Spinal stenosis (Acute) Chest pain (Acute) Elevated troponin (Acute) Chest pain Chronic pain (Acute) Isolated TSH deficiency Hyperthyroidism Back pain of lumbar region with sciatica (Acute) Anxiety about health (Acute) Ambulatory dysfunction Hypercalcemia (Acute) Adrenal insufficiency (Acute) CAD (coronary atherosclerotic disease) (Acute) Prediabetes 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 Trochanteric bursitis of right hip History of pituitary adenoma Chronic kidney disease, stage III (moderate) (Acute) Dyslipidemia Osteopenia Prostatic hypertrophy Chronic low back pain ACTH deficiency (Chronic) Panhypopituitarism (Chronic) Anemia (Chronic) 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 TORRES BPH (benign prostatic hyperplasia) IBS (irritable bowel syndrome) GERD (gastroesophageal reflux disease) History of melanoma Hearing deficit BL MCRAE Lumbar herniated disc MULTIPLE Surgical History Hx laparoscopic cholecystectomy (06/03/19) Laparoscopic Cholecystectomy Dr. 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 Status post trigger finger release History of esophagogastroduodenoscopy (EGD) 04/20/2019. MAC no issues. History of colonoscopy History of melanoma excision CHEST - W/ SKIN GRAFTING. (LEFT GROIN DONOR SITE) Family History Sister Family hx of colon cancer Father Tobacco use Coronary heart disease Mother Diverticulosis of intestine Sister Ovarian cancer Colon cancer Grandfather Cancer Aunt Cancer Uncle Cancer Grandmother (Maternal) Cancer Other No significant family history Social History Smoking Status: Former smoker Second Hand Exposure: No; Do You Dip or Chew Tobacco: No; Hx Alcohol Use: No Hx Substance Use: No Preferred Language: Grenadian Communication Ability: Impaired Visual Impairment: No Limitations Sheet Pile Driver Operator Required: No Beliefs That Will Affect Care: None Current Living Situation: Spouse Feels Safe at Home: Yes Assistive Devices: Walker Allergies Allergies Allergy/AdvReac Type Severity Reaction Status Date / Time lidocaine [From Lidoderm] AdvReac Mild Itching Verified 08/03/24 12:34 Home Meds Home Medications Medication Instructions Recorded Confirmed ascorbic acid (vitamin C) 500 mg 500 mg PO DAILY 08/07/24 08/22/24 tablet aspirin 81 mg tablet,delayed 81 mg PO DAILY 08/07/24 08/22/24 release atorvastatin 40 mg tablet 40 mg PO DAILY 08/07/24 08/22/24 bumetanide 1 mg tablet 1 mg PO DAILY 08/07/24 08/22/24 dicyclomine 20 mg tablet 20 mg PO TID 08/07/24 08/22/24 dutasteride 0.5 mg-tamsulosin ER 1 cap PO HS 08/07/24 08/22/24 0.4 mg capsule ext.release 24hr mphas hydrocortisone 5 mg tablet 10 mg PO HS 08/07/24 08/22/24 hydrocortisone 5 mg tablet 20 mg PO DAILY 08/07/24 08/22/24 isosorbide mononitrate 30 mg 30 mg PO DAILY 08/07/24 08/22/24 tablet,extended release 24 hr lisinopril 20 mg tablet 20 mg PO DAILY 08/07/24 08/22/24 magnesium 250 mg tablet 250 mg PO DAILY 08/07/24 08/22/24 methimazole 5 mg tablet 2.5 mg PO DAILY 08/07/24 08/22/24 metoprolol succinate 50 mg 50 mg PO BID 08/07/24 08/22/24 tablet,extended release 24 hr multivitamin 1 tab PO DAILY 08/07/24 08/22/24 nitroglycerin 0.4 mg sublingual 0.4 mg sublingual UD 08/07/24 08/22/24 tablet omeprazole 20 mg capsule,delayed 20 mg PO BID 08/07/24 08/22/24 release potassium chloride 20 mEq 20 meq PO DAILY 08/07/24 08/22/24 tablet,extended release sertraline 100 mg tablet 200 mg PO DAILY 08/07/24 08/22/24 ticagrelor 90 mg tablet (Brilinta) 90 mg PO BID 08/07/24 08/22/24 trazodone 150 mg tablet 150 mg PO HS 08/07/24 08/22/24 Tums 1 tab PO DIRECTED PRN Other 08/22/24 08/22/24 calcium 600 mg (as carbonate)-vit 1 tab PO DAILY 08/22/24 08/22/24 D3 20 mcg (800 unit) chewable tablet (Caltrate plus D) doxazosin 4 mg tablet 8 mg PO HS 08/22/24 08/22/24 quetiapine 25 mg tablet (Seroquel) 25 mg PO HS 08/22/24 08/22/24 testosterone 1 pump topical DAILY 08/22/24 08/22/24 Results & Data (ED) Vital Signs Vital Signs - 24 hr 08/22/24 11:01 08/22/24 11:27 08/22/24 13:00 Temperature 35.9 C L Temperature Source Temporal Artery Scan Pulse Rate [Apical] 69 63 Respiratory Rate 20 18 18 Respiratory Effort / Characteristics Non-Labored Spontaneous Respiratory Depth Normal Respiratory Pattern Regular Blood Pressure 92/56 L Blood Pressure [Left Arm] 129/72 136/68 Blood Pressure Mean 68 Blood Pressure Mean [Left Arm] 91 90 Blood Pressure Position Sitting Blood Pressure Position [Left Arm] Pulse Oximetry 98 96 96 Oxygen Delivery Method Room Air Sepsis Recent Fever Within 48 Hours No Sepsis New/Unexplained Change in Mental Status No Sepsis Action Taken by Nursing No Action Required 08/22/24 15:22 Temperature Temperature Source Pulse Rate [Apical] 76 Respiratory Rate 18 Respiratory Effort / Characteristics Non-Labored Spontaneous Respiratory Depth Normal Respiratory Pattern Blood Pressure Blood Pressure [Left Arm] 142/79 H Blood Pressure Mean Blood Pressure Mean [Left Arm] 100 Blood Pressure Position Blood Pressure Position [Left Arm] Lying Pulse Oximetry 99 Oxygen Delivery Method Room Air Sepsis Recent Fever Within 48 Hours Sepsis New/Unexplained Change in Mental Status Sepsis Action Taken by Nursing Laboratory Data 08/22/24 11:24 08/22/24 11:24 Lab Results 08/22/24 08/22/24 Range/Units 11:24 16:25 WBC 13.28 H (4.8-10.8) K/ul RBC 3.91 L (4.70-6.10) M/uL Hgb 12.5 L (14.0-18.0) g/dl Hct 36.7 L (42.0-52.0) % MCV 93.9 (80.0-100.0) fL MCH 32.0 (25.0-34.0) pg MCHC 34.1 (32.0-36.0) g/dL RDW Std Deviation 47.4 H (36.4-46.3) fL RDW Coeff of Mehnaz 13.9 (11.5-14.5) % Plt Count 174 (130-400) K/uL MPV 11.4 (9.4-12.4) fL Immature Gran % (Auto) 0.8 % Neut % (Auto) 76.9 % Lymph % (Auto) 15.1 % [place] % (Auto) 4.7 % Eos % (Auto) 2.0 % Baso % (Auto) 0.5 % Neut # (Auto) 10.24 H (1.40-6.50) K/uL Lymph # (Auto) 2.00 (1.20-3.40) K/uL [place] # (Auto) 0.62 H (0.11-0.59) K/uL Eos # (Auto) 0.26 (0.00-0.50) K/uL Baso # (Auto) 0.06 (0.00-0.20) K/uL Immature Gran # (Auto) 0.10 (0.01-0.20) K/uL Sodium 138 (136-145) mmol/L Potassium 3.6 (3.5-5.1) mmol/L Chloride 100 (98-107) mmol/L Carbon Dioxide 25 (21-32) mmol/L Anion Gap 13 H (3-11) BUN 29 H (6-23) mg/dl Creatinine 1.76 H (0.6-1.4) mg/dl Est Cr Clr Drug Dosing Not Reportable eGFR 37.89 BUN/Creatinine Ratio 16.5 (10-20) Glucose 86 (70-99(Fasting)) mg/dl Lactate 2.6 H* (0.4-2.0) mmol/L Calcium 9.7 (8.6-10.3) mg/dl Total Bilirubin 0.9 (0.2-1.0) mg/dl Direct Bilirubin 0.1 (0-0.2) mg/dl AST 24 (13-39) U/L ALT 20 (7-52) U/L Alkaline Phosphatase 83 (34-104) U/L Total Protein 6.4 (6.0-8.3) gm/dl Albumin 4.0 (3.4-5.0) gm/dl Lipase 51 (11-82) U/L TSH 0.890 (0.300-4.500) uIu/ml Administered Medications Discontinued Medications Al Hydrox/Mg Hydrox/Simethicone (Aluminum/Magnesium Susp 30 Ml Udc) 30 ml PO NOW STA Stop: 08/22/24 12:53 Last Admin: 08/22/24 13:22 Dose: 30 ml Documented By: LONNIE Dicyclomine HCl (Dicyclomine Hcl 10 Mg Cap) 10 mg PO NOW ONE Stop: 08/22/24 12:53 Last Admin: 08/22/24 13:22 Dose: 10 mg Documented By: LONNIE Acetaminophen (Ofirmev) 1,000 mg in 100 mls @ 400 mls/hr IV NOW STA Stop: 08/22/24 12:26 Last Infusion: 08/22/24 14:09 Dose: Infused Documented By: Admin: 08/22/24 12:18 Dose: 400 mls/hr Documented By: JAQUELINE Ketorolac Tromethamine (Ketorolac Tromethamine 15 Mg/Ml Vial) 15 mg IV NOW ONE Stop: 08/22/24 11:44 Last Admin: 08/22/24 11:55 Dose: 15 mg Documented By: MERCEDES Imaging Data Radiologist's Impression: KUB X-Ray 08/22/24 12:57 EXAM: Radiograph of the Abdomen 1 View INDICATION: Several days of severe abdominal pain. TECHNIQUE: Frontal supine view of the abdomen/pelvis. COMPARISON: CT abdomen 08/20/2024 FINDINGS: Limitations: None. Gastrointestinal tract: Typical amounts of stool and gas noted throughout the intestinal tract. Organs: Polycystic right renal shadow with stable approximate 9 x 4 mm calcification associated with an upper pole cyst. No stone seen along the course of either ureter or in the pelvis. Bones/joints: Degenerative changes noted throughout the spine. No acute osseous abnormality seen. Soft tissues: No abnormality noted. No radiopaque foreign body noted. IMPRESSION: 1. Polycystic right renal shadow with stable approximate 9 x 4 mm calcification associated with an upper pole cyst. No stone seen along the course of either ureter or in the pelvis. 2. No intestinal obstruction. ACT 112: Negative or not required by law. Electronically signed by Dunia Galvan 08-22-2024 2:16 PM Discharge Plan Visit Data Chief Complaint: Constipation Stated Complaint: SEVERE ABD PAIN, CONSTPATION ED Provider: Do Deleon Discharge Problem: Abdominal pain, Anxiety, Unable to care for self, Opioid use disorder, Dementia Patient Disposition: Admitted As Inpatient Discharge Instructions Interventions: ED Discharge Assessment Last Done: 08/22/24 18:15
[2024-08-22] MEDS ORDERED: OLANZapine 10 MG/2.1 ML SDV IM PRN (19:15)
[2024-08-22] MEDS ORDERED: ONDANSETRON INJ 2 MG/ML 2 ML VIAL IV PRN (19:15)
[2024-08-22] MEDS: DOXAZosin MESYLATE 4 MG TAB PO SCH (20:49)
[2024-08-22] MEDS: HYDROCORTISONE 10 MG TAB PO SCH (20:49)
[2024-08-22] MEDS: ACETAMINOPHEN 500 MG TAB PO PRN (20:49)
[2024-08-22] MEDS: MELATONIN 3 MG TAB PO PRN (20:49)
[2024-08-22] MEDS: traZODone HCL 50 MG TAB PO SCH (20:49)
[2024-08-22] MEDS: DICYCLOMINE HCL 20 MG TAB PO SCH (20:50)
[2024-08-22] MEDS: PANTOprazole 40 MG TAB PO SCH (20:50)
[2024-08-22] MEDS: FINASTERIDE 5 MG TAB PO SCH (20:50)
[2024-08-22] MEDS: METOPROLOL SUCC 50MG EXT REL TAB PO SCH (20:50)
[2024-08-22] MEDS: TAMSULOSIN HCL 0.4 MG CAP PO SCH (20:50)
[2024-08-22] MEDS: QUEtiapine FUMARATE 25 MG TABLET PO SCH (20:50)
[2024-08-22] MEDS: TICAGRELOR 90 MG TAB PO SCH (20:50)
[2024-08-22] MEDS ORDERED: TAMSULOSIN PO SCH (21:00)
[2024-08-22] MEDS ORDERED: [UNRECOGNIZED DRUG - OTHER] PO SCH (21:00)
[2024-08-22] MEDS ORDERED: DUTASTERIDE PO SCH (21:00)
[2024-08-22] MEDS: Patient's WEIGHT Needed SCH (21:48)
[2024-08-23] MEDS: TESTOSTERONE~ORDER AWAITING ACTION SCH (01:07)
[2024-08-23 06:21] LABS: Hematocrit (blood only) 30.5 % (42.0-52.0); Hemoglobin 10.7 g/dl (14.0-18.0); Mean Corpuscular Hemoglobin 32.9 pg (25.0-34.0); Mean Corpuscular Hgb Conc 35.1 g/dL (32.0-36.0); Mean Corpuscular Volume 93.8 fL (80.0-100.0); Mean Platelet Volume 11.5 fL (9.4-12.4); Platelet Count 126 K/uL (130-400); RDW Coefficient of Variation 13.7 % (11.5-14.5); RDW Standard Deviation 46.5 fL (36.4-46.3); Red Blood Count 3.25 M/uL (4.70-6.10); White Blood Count 7.61 K/ul (4.8-10.8)
[2024-08-23 06:35] LABS: Albumin Globulin Ratio 1.6 (0.9-2); Albumin Level 3.3 gm/dl (3.4-5.0); BUN Creatinine Ratio 19.4 (10-20); Bilirubin,Total 0.7 mg/dl (0.2-1.0); Calcium 9.4 mg/dl (8.6-10.3); Creatinine Clr Calc Pharmacy 29.1 ml/min; Globulin 2.1 gm/dl (2.5-4.0); Potassium 3.4 mmol/L (3.5-5.1); Total Protein 5.4 gm/dl (6.0-8.3)
[2024-08-23 07:43] VITALS: RESP 16
[2024-08-23 07:46] LABS: Appearance Urine Clear (Clear); Bilirubin Urine Negative (Negative); Blood Urine Negative (Negative); Color Urine Yellow; Glucose Urine UA Negative (Negative); Ketones Urine Trace (Negative); Leukocyte Esterase Urine Negative (Negative); Nitrite Urine Negative (Negative); Protein Urine Negative (Negative); Specific Gravity Urine 1.021 (1.000-1.030); Urobilinogen Urine Negative (Negative); pH Urine 5.5 (4.5-7.5)
[2024-08-23] MEDS: POTASSIUM CHLORIDE CRTAB 20 MEQ TABCR PO STA (07:49)
[2024-08-23] MEDS: POLYETHYLENE (MIRALAX) 17 GM PACK PO SCH (08:48)
[2024-08-23] MEDS: HYDROCORTISONE 10 MG TAB PO SCH (08:49)
[2024-08-23] MEDS: MAGNESIUM OXIDE 400 MG TAB PO SCH (08:49)
[2024-08-23] MEDS: HEPARIN SOD 5,000 UNIT/0.5 ML VIAL SQ SCH (08:49)
[2024-08-23] MEDS: ISOSORBIDE MONO EXTENDED REL 30 MG TABCR PO SCH (08:49)
[2024-08-23] MEDS: lisinopril 20 MG TAB PO SCH (08:49)
[2024-08-23] MEDS: SERTRALINE HCL 100 MG TABLET PO SCH (08:50)
[2024-08-23] MEDS: ASCORBIC ACID 500 MG TAB PO SCH (08:50)
[2024-08-23] MEDS: ASPIRIN 81 MG ECTAB PO SCH (08:50)
[2024-08-23] MEDS: CALCIUM 600MG + VIT D 400 IU TAB PO SCH (08:50)
[2024-08-23] MEDS: DULoxetine HCL 30 MG CAP PO SCH (08:51)
[2024-08-23] MEDS: methIMAzole 5 MG TABLET PO SCH (08:51)
[2024-08-23] MEDS: MULTIVITAMIN TAB PO SCH (08:51)
[2024-08-23] MEDS: LIDOCAINE 5% 1 PATCH TD SCH (08:53)
[2024-08-23] MEDS: ATORVASTATIN 40 MG TAB PO SCH (08:55)
[2024-08-23] MEDS ORDERED: BUMETANIDE 1 MG TAB PO SCH (09:00)
[2024-08-23] MEDS: POTASSIUM CHLORIDE CRTAB 20 MEQ TABCR PO SCH (09:37)
--- NOTE | 2024-08-23 10:38 | Hospitalist Progress Note ---
Date of Service August 23, 2024 Assessment & Plan (1) Abdominal pain: (2) Depression, unspecified: (3) Anxiety: (4) Hyperthyroidism: (5) Back pain of lumbar region with sciatica: (6) CAD (coronary atherosclerotic disease): (7) Chronic kidney disease, stage III (moderate): (8) Panhypopituitarism: (9) ACTH deficiency: (10) BPH (benign prostatic hyperplasia): Plan Mr. 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 Patient is going to require skilled nursing placement as family is unable to support patient at this time with his progressive memory impairment and behaviors. #abdominal pain Miralax daily Ambulation as tolerated bentyl TID increased to 20mg QID Trial of Cymbalta 30mg, continue Abd duplex added given elevated lactate -patient unable to tolerate, lactate resolved #Mood disorder recently in psych unit, no active SI/HI continue sertraline 200mg continue trazodone 150mg Continue Quetipine 25mg qhs #Chronic Back pain #Lumbar Stenosis history of KHUSHBOO 09/2023, 07/2021 trial to cymbalta #HTN #Obstructive CAD s/p stent 06/2024 #Recent STEMI, inferolateral June 2024 late presentation inferolateral STEMI. Catheterization with multivessel coronary artery disease, culprit proximal RCA stenosis status post PCI of the RCA with 3 overlapping drug-eluting stents Status post PCI of the mid left circumflex with 1 drug-eluting stent. Residual intermediate stenosis of the mid LAD noted on repeat cardiac catheterization 07/10/2024 as well as branch vessel disease as noted above. Continue ASA and Brillinta Continue Metoprolol Continue Statin Continue bumex daily Continue imdur 30mg continue lisinopril 20mg daily #CKD stage G3a/A2 (moderate impairment). Baseline Cr 1.8-2.0 w/ EGFR 45 cc/min. Urine sediment is benign. Renal US revealed a multicystic R kidney, no solid renal mass * 06/02 Urology evaluation: large R multicystic kidney. Urology indicated that these are simple cysts and did not recommend nephrectomy. Urology advised reevaluation in 1 year, patient declined * Continue KCl 20 mEq daily for correction of hypokalemia #Chronic anemia Stable, at baseline #chronic steroid therapy 2/2 adrenal insufficiency #panhypopituitarism #pituitary tumor follows Dr. Reece Growth hormone: no on growth hormone treatment as of yet Prolactin: Prolactin initially marginally elevated, most recently 67 ng/mL in 2018; since that time has been decreasing, most recent 25 ng/mL in December 2022. Testosterone: Started testosterone replacement in late 2018 Thyroid: continue on methimazole 2.5 mg daily Cortisol: Settled on 20/10 mg with the morning dose at 5:30 a.m.-6:00 am or ? TSH 0.890 DVT Ppx: SQ heparin Code status: FULL PCP: Domi Dispo: admitted to med/surg Admission and Anticipated Discharge Date Admission Date: August 22, 2024 Subjective NAEO Reports he was able to sleep in the evening, denies any concerns this am Reports some discomfort, but not nearly as "bad" as day prior Spoke to on the phone: she continues to reinforce need for placement, given her ongoing medical needs as well Physical Exam Constitutional: WD/WN, vitals as above Respiratory: normal respiratory effort, lungs clear to auscultation Cardiovascular: RRR, no murmur, no edema Results & Data Results & Data Vital Signs (Past 12 Hours) Vital Signs Temp Pulse Resp BP Pulse Ox O2 Del Method 08/23/24 07:42 36.5 C 70 16 134/57 L 98 Room Air Laboratory Results Short CBC 08/22/24 08/23/24 Range/Units 11:24 05:46 WBC 13.28 H 7.61 (4.8-10.8) K/ul Hgb 12.5 L 10.7 L (14.0-18.0) g/dl Hct 36.7 L 30.5 L (42.0-52.0) % Plt Count 174 126 L (130-400) K/uL BMP 08/22/24 08/23/24 11:24 05:46 Sodium 138 139 Potassium 3.6 3.4 L Chloride 100 104 Carbon Dioxide 25 27 BUN 29 H 36 H Creatinine 1.76 H 1.86 H Glucose 86 101 H Calcium 9.7 9.4 Liver Function 08/22/24 08/23/24 Range/Units 11:24 05:46 Total Bilirubin 0.9 0.7 (0.2-1.0) mg/dl Direct Bilirubin 0.1 (0-0.2) mg/dl AST 24 19 (13-39) U/L ALT 20 16 (7-52) U/L Alkaline Phosphatase 83 70 (34-104) U/L Albumin 4.0 3.3 L (3.4-5.0) gm/dl Urine 08/23/24 Range/Units Unknown Urine Color Yellow Urine Appearance Clear (Clear) Urine pH 5.5 (4.5-7.5) Ur Specific [address] 1.021 (1.000-1.030) Urine Protein Negative (Negative) Urine Glucose (UA) Negative (Negative) Medications Administered Home Medications Medication Instructions Recorded Confirmed Last Taken ascorbic acid (vitamin C) 500 mg 500 mg PO DAILY 08/07/24 08/22/24 Unknown tablet aspirin 81 mg tablet,delayed 81 mg PO DAILY 08/07/24 08/22/24 Unknown release atorvastatin 40 mg tablet 40 mg PO DAILY 08/07/24 08/22/24 Unknown bumetanide 1 mg tablet 1 mg PO DAILY 08/07/24 08/22/24 Unknown dicyclomine 20 mg tablet 20 mg PO TID 08/07/24 08/22/24 Unknown dutasteride 0.5 mg-tamsulosin ER 1 cap PO HS 08/07/24 08/22/24 Unknown 0.4 mg capsule ext.release 24hr mphas hydrocortisone 5 mg tablet 10 mg PO HS 08/07/24 08/22/24 Unknown hydrocortisone 5 mg tablet 20 mg PO DAILY 08/07/24 08/22/24 Unknown isosorbide mononitrate 30 mg 30 mg PO DAILY 08/07/24 08/22/24 Unknown tablet,extended release 24 hr lisinopril 20 mg tablet 20 mg PO DAILY 08/07/24 08/22/24 Unknown magnesium 250 mg tablet 250 mg PO DAILY 08/07/24 08/22/24 Unknown methimazole 5 mg tablet 2.5 mg PO DAILY 08/07/24 08/22/24 Unknown metoprolol succinate 50 mg 50 mg PO BID 08/07/24 08/22/24 Unknown tablet,extended release 24 hr multivitamin 1 tab PO DAILY 08/07/24 08/22/24 Unknown nitroglycerin 0.4 mg sublingual 0.4 mg sublingual UD 08/07/24 08/22/24 Unknown tablet omeprazole 20 mg capsule,delayed 20 mg PO BID 08/07/24 08/22/24 Unknown release potassium chloride 20 mEq 20 meq PO DAILY 08/07/24 08/22/24 Unknown tablet,extended release sertraline 100 mg tablet 200 mg PO DAILY 08/07/24 08/22/24 Unknown ticagrelor 90 mg tablet (Brilinta) 90 mg PO BID 08/07/24 08/22/24 Unknown trazodone 150 mg tablet 150 mg PO HS 08/07/24 08/22/24 Unknown Tums 1 tab PO DIRECTED PRN Other 08/22/24 08/22/24 Unknown calcium 600 mg (as carbonate)-vit 1 tab PO DAILY 08/22/24 08/22/24 Unknown D3 20 mcg (800 unit) chewable tablet (Caltrate plus D) doxazosin 4 mg tablet 8 mg PO HS 08/22/24 08/22/24 Unknown quetiapine 25 mg tablet (Seroquel) 25 mg PO HS 08/22/24 08/22/24 Unknown testosterone 1 pump topical DAILY 08/22/24 08/22/24 Unknown Active Medications Generic Name Dose Route Start Last Admin Trade Name Jfefrey PRN Reason Stop Dose Admin Acetaminophen 1,000 mg 08/22/24 17:10 08/22/24 20:49 Acetaminophen 500 Mg Tab PO 09/21/24 17:14 1,000 mg Q8H PRN Administration pain or fever Ascorbic Acid 500 mg 08/23/24 09:00 08/23/24 08:50 Ascorbic Acid 500 Mg Tab PO 09/22/24 08:59 500 mg DAILY TOD Administration Aspirin 81 mg 08/23/24 09:00 08/23/24 08:50 Aspirin 81 Mg Ectab PO 09/22/24 08:59 81 mg DAILY TOD Administration Atorvastatin Calcium 40 mg 08/23/24 09:00 08/23/24 08:55 Atorvastatin 40 Mg Tab PO 09/22/24 08:59 40 mg DAILY TOD Administration Calcium/Vitamin D 1 tab 08/23/24 09:00 08/23/24 08:50 Calcium 600mg + Vit D 400 Iu Tab PO 09/22/24 08:59 1 tab DAILY TOD Administration Dicyclomine HCl 20 mg 08/22/24 21:00 08/23/24 08:51 Dicyclomine Hcl 20 Mg Tab PO 09/21/24 20:59 20 mg QID TOD Administration Doxazosin Mesylate 8 mg 08/22/24 21:00 08/22/24 20:49 Doxazosin Mesylate 4 Mg Tab PO 09/21/24 20:59 8 mg HS TOD Administration Duloxetine HCl 30 mg 08/23/24 09:00 08/23/24 08:51 Duloxetine Hcl 30 Mg Cap PO 09/22/24 08:59 30 mg QAM TOD Administration Finasteride 5 mg 08/22/24 21:00 08/22/24 20:50 Finasteride 5 Mg Tab PO 09/21/24 20:59 5 mg HS TOD Administration Heparin Sodium (Porcine) 5,000 units 08/23/24 09:00 08/23/24 08:59 Heparin Sod 5,000 Unit/0.5 Ml Vial SQ 09/22/24 08:59 Not Given Q12 TOD Hydrocortisone 10 mg 08/22/24 21:00 08/22/24 20:49 Hydrocortisone 10 Mg Tab PO 09/21/24 20:59 10 mg HS TOD Administration Hydrocortisone 20 mg 08/23/24 09:00 08/23/24 08:49 Hydrocortisone 10 Mg Tab PO 09/22/24 08:59 20 mg DAILY TOD Administration Isosorbide Mononitrate 30 mg 08/23/24 09:00 08/23/24 08:49 Isosorbide [place] Extended Rel 30 Mg Tabcr PO 09/22/24 08:59 30 mg DAILY TOD Administration Lidocaine 1 patch 08/23/24 09:00 08/23/24 08:53 Lidocaine 5% 1 Patch TD 09/22/24 08:59 1 patch QAM TOD Administration Lisinopril 20 mg 08/23/24 09:00 08/23/24 08:49 Lisinopril 20 Mg Tab PO 09/22/24 08:59 20 mg DAILY TOD Administration Magnesium Oxide 400 mg 08/23/24 09:00 08/23/24 08:49 Magnesium Oxide 400 Mg Tab PO 09/22/24 08:59 400 mg DAILY TOD Administration Melatonin 3 mg 08/22/24 19:15 08/22/24 20:49 Melatonin 3 Mg Tab PO 09/21/24 19:14 3 mg HS PRN Administration Insomnia Methimazole 2.5 mg 08/23/24 09:00 08/23/24 08:51 Methimazole 5 Mg Tablet PO 09/22/24 08:59 2.5 mg DAILY TOD Administration Metoprolol Succinate 50 mg 08/22/24 21:00 08/23/24 08:51 Metoprolol Succ 50mg Ext Rel Tab PO 09/21/24 20:59 50 mg BID TOD Administration Miscellaneous 1 each 08/23/24 00:00 08/23/24 08:48 Testosterone~Order Awaiting Action N/A 09/22/24 00:00 Not Given QS TOD Miscellaneous 1 each 08/22/24 21:00 08/22/24 21:50 Remove Lidoderm Patch N/A 09/21/24 20:59 1 each DAILY@2100 TOD Administration Multivitamins 1 tab 08/23/24 09:00 08/23/24 08:51 Multivitamin Tab PO 09/22/24 08:59 1 tab DAILY TOD Administration Pantoprazole Sodium 40 mg 08/22/24 21:00 08/23/24 08:51 Pantoprazole 40 Mg Tab PO 09/21/24 20:59 40 mg BID TOD Administration Polyethylene Glycol 17 gm 08/23/24 09:00 08/23/24 08:57 Polyethylene (Miralax) 17 Gm Pack PO 09/22/24 08:59 Not Given DAILY TOD Potassium Chloride 20 meq 08/23/24 09:00 08/23/24 09:37 Potassium Chloride Crtab 20 Meq Tabcr PO 09/22/24 08:59 20 meq DAILY TOD Administration Quetiapine Fumarate 25 mg 08/22/24 21:00 08/22/24 20:50 Quetiapine Fumarate 25 Mg Tablet PO 09/21/24 20:59 25 mg HS TOD Administration Sertraline HCl 200 mg 08/23/24 09:00 08/23/24 08:50 Sertraline Hcl 100 Mg Tablet PO 09/22/24 08:59 200 mg DAILY TOD Administration Tamsulosin HCl 0.4 mg 08/22/24 21:00 08/22/24 20:50 Tamsulosin Hcl 0.4 Mg Cap PO 09/21/24 20:59 0.4 mg HS TOD Administration Ticagrelor 90 mg 08/22/24 21:00 08/23/24 08:49 Ticagrelor 90 Mg Tab PO 09/21/24 20:59 90 mg BID TOD Administration Trazodone HCl 150 mg 08/22/24 21:00 08/22/24 20:49 Trazodone Hcl 50 Mg Tab PO 09/21/24 20:59 150 mg HS TOD Administration (1) Abdominal pain Abdominal location: periumbilical Qualified Code(s): R10.33 - Periumbilical pain (6) CAD (coronary atherosclerotic disease) Associated angina: unspecified whether angina present Coronary Disease- Associated Artery/Lesion type: unspecified vessel or lesion type [place] vs. transplanted heart: [place] heart Qualified Code(s): I25.10 - Atherosclerotic heart disease of [place] coronary artery without angina pectoris (7) Chronic kidney disease, stage III (moderate) Chronic kidney disease stage 3 subtype: unspecified whether 3a or 3b Qualified Code(s): N18.30 - Chronic kidney disease, stage 3 unspecified
--- NOTE | 2024-08-23 11:08 | Electrocardiogram Report ---
Test Reason : Blood Pressure : */* mmHG Vent. 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
--- NOTE | 2024-08-23 11:53 | Psychiatric Consultation ---
Date of Consultation August 23, 2024 Impression / Recommendations Impression Diagnostically unclear. Reported subjective restlessness could be a component of anxiety or dementia or medication side effects (akathisia) or aspect of opioid withdrawal if he has been overusing his outpatient scripts. Notably no evidence of significant restlessness on exam today. Family collateral notable for concern for his dependence on opioids. Today anxiety appears well controlled and no evidence for agitation. Encouraged him to make note of symptoms he experiences or thoughts he has when he experiences anxiety (i.e. pain, fatigue, restlessness, fear about his vinay, fear of dying, physical symptoms, insomnia, etc) to help us better identify any further target symptoms to address. His most recent QTc was significantly elevated so would avoid any additional changes to his psychiatric medication at this time. Overall, I spent a total of 65 minutes with this case including review of chart records, review of labwork, review of EKG QTc, direct evaluation of the patient at bedside, counseling the patient, discussion of the patient with the hospitalist provider, discussion with the psychiatric liason during clinical rounds, review of collateral historian information from the family and documentation in the electronic health record. (1) Dementia: (2) Opioid use disorder: (3) Anxiety: (4) Drug induced akathisia: Plan -Continue psychiatric medications as ordered for now -If restlessness persists/resumes would consider decreasing sertraline to 100mg daily given he is also on duloxetine, high dose trazodone and Seroquel (all of which have the potential to cause akathisia) -For restlessness could consider low dose ativan but given concerns of opioid use and his age would attempt to limit this unless absolutely necessary -For behavioral emergency: * Given prolonged QTc would use ativan for behavioral emergency. * If QTc becomes <500ms then would use: olanzapine 2.5mg IM (DO NOT exceed 10mg per 24 hours, check EKG if IM dose required, NEVER co-administer with IM or IV benzodiazepines). Psych History Identifying Data 84 yo man with a history of dementia, anxiety, panic disorder (many years ago), CAD status post stent in June 2024 and multiple other medical conditions, recently admitted to inpatient geriatric psychiatry for 8 days (08/12/2024 - 08/20/2024) now admitted medically for worsening stomach pain and family feeling unable to care for him at home. Psychiatry consulted for anxiety and agitation. Chief Complaint "I make it difficult on my ". History of Present Illness Ronny is known to me from recent psychiatry consult on 08/11/2024. Since that time he was admitted for geriatric psychiatry treatment for anxiety with somatic fixation, health concerns and ruminations and was started on Seroquel 25mg HS. He was brought to the ED by his family for ongoing anxiety and difficulty functioning at home. Family also expressed concerns to ED CM that he has been dependent on prescribed opioids for years and they suspect this has been contributing to recent periods of agitation at home and his frequent requests to come to the hospital. Today he appears calm and states desire to get out of the hospital and return home. Acknowledges he can be "mean" to his and attributes this to fenantyl patches in the past but feels hydrocodone has not caused any issues. He m inimizes any concerns about opioid misuse or dependency stating he often will go entire days without using any pain medication. Struggles to identify any specific symptoms of anxiety. 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 Also identifies poor appetite and "boredom". Denies any depressive symptoms nor SI. He isn't sure what if anything psychiatry could help with except "get me out of here". However, he understands his feels unable to manage his needs at home and he's open to exploring possible assisted living placement. Allergies Allergy/AdvReac Type Severity Reaction Status Date / Time lidocaine [From Lidoderm] AdvReac Mild Itching Verified 08/03/24 12:34 Home Medications Medication Instructions Recorded Confirmed Type ascorbic acid (vitamin C) 500 mg 500 mg PO DAILY 08/07/24 08/22/24 History tablet aspirin 81 mg tablet,delayed 81 mg PO DAILY 08/07/24 08/22/24 History release atorvastatin 40 mg tablet 40 mg PO DAILY 08/07/24 08/22/24 History bumetanide 1 mg tablet 1 mg PO DAILY 08/07/24 08/22/24 History dicyclomine 20 mg tablet 20 mg PO TID 08/07/24 08/22/24 History dutasteride 0.5 mg-tamsulosin ER 1 cap PO HS 08/07/24 08/22/24 History 0.4 mg capsule ext.release 24hr mphas hydrocortisone 5 mg tablet 10 mg PO HS 08/07/24 08/22/24 History hydrocortisone 5 mg tablet 20 mg PO DAILY 08/07/24 08/22/24 History isosorbide mononitrate 30 mg 30 mg PO DAILY 08/07/24 08/22/24 History tablet,extended release 24 hr lisinopril 20 mg tablet 20 mg PO DAILY 08/07/24 08/22/24 History magnesium 250 mg tablet 250 mg PO DAILY 08/07/24 08/22/24 History methimazole 5 mg tablet 2.5 mg PO DAILY 08/07/24 08/22/24 History metoprolol succinate 50 mg 50 mg PO BID 08/07/24 08/22/24 History tablet,extended release 24 hr multivitamin 1 tab PO DAILY 08/07/24 08/22/24 History nitroglycerin 0.4 mg sublingual 0.4 mg sublingual UD 08/07/24 08/22/24 History tablet omeprazole 20 mg capsule,delayed 20 mg PO BID 08/07/24 08/22/24 History release potassium chloride 20 mEq 20 meq PO DAILY 08/07/24 08/22/24 History tablet,extended release sertraline 100 mg tablet 200 mg PO DAILY 08/07/24 08/22/24 History ticagrelor 90 mg tablet (Brilinta) 90 mg PO BID 08/07/24 08/22/24 History trazodone 150 mg tablet 150 mg PO HS 08/07/24 08/22/24 History Tums 1 tab PO DIRECTED PRN Other 08/22/24 08/22/24 History calcium 600 mg (as carbonate)-vit 1 tab PO DAILY 08/22/24 08/22/24 History D3 20 mcg (800 unit) chewable tablet (Caltrate plus D) doxazosin 4 mg tablet 8 mg PO HS 08/22/24 08/22/24 History quetiapine 25 mg tablet (Seroquel) 25 mg PO HS 08/22/24 08/22/24 History testosterone 1 pump topical DAILY 08/22/24 08/22/24 History Patient History Medical History Vitamin D deficiency History of DVT (deep vein thrombosis) Blind left eye Chronic cholecystitis Multiple renal cysts REPORTS ONLY HAS 1 FUNCTIONING KIDNEY - FOLLOWS W/ DR. TORRES BPH (benign prostatic hyperplasia) IBS (irritable bowel syndrome) GERD (gastroesophageal reflux disease) History of melanoma Hearing deficit BL MCRAE Lumbar herniated disc MULTIPLE Surgical History Hx laparoscopic cholecystectomy (06/03/19) Laparoscopic Cholecystectomy Dr. 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 Status post trigger finger release History of esophagogastroduodenoscopy (EGD) 04/20/2019. MAC no issues. History of colonoscopy History of melanoma excision CHEST - W/ SKIN GRAFTING. (LEFT GROIN DONOR SITE) Family History Sister Family hx of colon cancer Father Tobacco use Coronary heart disease Mother Diverticulosis of intestine Sister Ovarian cancer Colon cancer Grandfather Cancer Aunt Cancer Uncle Cancer Grandmother (Maternal) Cancer Other No significant family history Social History Smoking Status: Former smoker Second Hand Exposure: No; Do You Dip or Chew Tobacco: No; Hx Alcohol Use: No Hx Substance Use: No Preferred Language: [place]er Communication Ability: Effective Visual Impairment: No Limitations Work Station Support Specialist Required: No Beliefs That Will Affect Care: None Current Living Situation: Spouse Current Living Situation Comment: [facility] with 2 cats Other Information That Helps Us Care for You: No Feels Safe at Home: Yes Safety Concerns: Feels Safe At This Time Assistive Devices: Glasses and Hearing Aid - Bilateral Physical Exam Psychiatric: Orientation: alert, oriented to person, oriented to place and oriented to time Apperance: appropriately dressed and appropriately groomed Eye Contact: good eye contact Motor Behavior: no abnormal motor movements Speech: normal rate/rhythm/volume of speech Affect: + constricted affect Mood: + anxious mood Thought Process: + circumstantial thought process and + looseness of associations Thought Content: reality based without delusions Suicidal Thoughts: denies suicidal thoughts Homicidal Thoughts: denies homicidal thoughts Hallucinations: no auditory hallucinations and no visual hallucinations Cognition: recent memory grossly intact, remote memory grossly intact, attention grossly intact and language grossly intact Insight: + poor insight Judgment: + limited judgement Vital Signs (Past 24 Hours): Last Vital Signs Temp 36.5 C 08/23/24 07:42 Pulse 70 08/23/24 07:42 Resp 16 08/23/24 07:42 BP 134/57 L 08/23/24 07:42 Pulse Ox 98 08/23/24 07:42 O2 Del Method Room Air 08/23/24 07:42 Results & Data (PSY) Medications Administered Acetaminophen (Acetaminophen 500 Mg Tab) 1,000 mg PO Q8H PRN PRN Reason: pain or fever Stop: 09/21/24 17:14 Last Admin: 08/22/24 20:49 Dose: 1,000 mg Documented By: CINTHYA Ascorbic Acid (Ascorbic Acid 500 Mg Tab) 500 mg PO DAILY [facility] Stop: 09/22/24 08:59 Last Admin: 08/23/24 08:50 Dose: 500 mg Documented By: TIMOTHY Aspirin (Aspirin 81 Mg Ectab) 81 mg PO DAILY TOD Stop: 09/22/24 08:59 Last Admin: 08/23/24 08:50 Dose: 81 mg Documented By: TIMOTHY Atorvastatin Calcium (Atorvastatin 40 Mg Tab) 40 mg PO DAILY TOD Stop: 09/22/24 08:59 Last Admin: 08/23/24 08:55 Dose: 40 mg Documented By: TIMOTHY Calcium/Vitamin D (Calcium 600mg + Vit D 400 Iu Tab) 1 tab PO DAILY TOD Stop: 09/22/24 08:59 Last Admin: 08/23/24 08:50 Dose: 1 tab Documented By: TIMOTHY Dicyclomine HCl (Dicyclomine Hcl 20 Mg Tab) 20 mg PO QID TOD Stop: 09/21/24 20:59 Last Admin: 08/23/24 08:51 Dose: 20 mg Documented By: Admin: 08/22/24 20:50 Dose: 20 mg Documented By: CINTHYA Doxazosin Mesylate (Doxazosin Mesylate 4 Mg Tab) 8 mg PO HS [facility] Stop: 09/21/24 20:59 Last Admin: 08/22/24 20:49 Dose: 8 mg Documented By: CINTHYA Duloxetine HCl (Duloxetine Hcl 30 Mg Cap) 30 mg PO QAM TOD Stop: 09/22/24 08:59 Last Admin: 12/08/24 08:51 Dose: 30 mg Documented By: TIMOTHY Finasteride (Finasteride 5 Mg Tab) 5 mg PO HS TOD Stop: 09/21/24 20:59 Last Admin: 08/22/24 20:50 Dose: 5 mg Documented By: CINTHYA Heparin Sodium (Porcine) (Heparin Sod 5,000 Unit/0.5 Ml Vial) 5,000 units SQ Q12 TOD Stop: 09/22/24 08:59 Last Admin: 08/23/24 08:59 Dose: Not Given Documented By: TIMOTHY Hydrocortisone (Hydrocortisone 10 Mg Tab) 10 mg PO HS TOD Stop: 09/21/24 20:59 Last Admin: 08/22/24 20:49 Dose: 10 mg Documented By: CINTHYA Hydrocortisone (Hydrocortisone 10 Mg Tab) 20 mg PO DAILY TOD Stop: 09/22/24 08:59 Last Admin: 08/23/24 08:49 Dose: 20 mg Documented By: TIMOTHY Isosorbide Mononitrate (Isosorbide Peach Extended Rel 30 Mg Tabcr) 30 mg PO DAILY TOD Stop: 09/22/24 08:59 Last Admin: 08/23/24 08:49 Dose: 30 mg Documented By: TIMOTHY Lidocaine (Lidocaine 5% 1 Patch) 1 patch TD QAM TOD Stop: 09/22/24 08:59 Last Admin: 08/23/24 08:53 Dose: 1 patch Documented By: TIMOTHY Lisinopril (Lisinopril 20 Mg Tab) 20 mg PO DAILY TOD Stop: 09/22/24 08:59 Last Admin: 08/23/24 08:49 Dose: 20 mg Documented By: TIMOTHY Magnesium Oxide (Magnesium Oxide 400 Mg Tab) 400 mg PO DAILY TOD Stop: 09/22/24 08:59 Last Admin: 08/23/24 08:49 Dose: 400 mg Documented By: TIMOTHY Melatonin (Melatonin 3 Mg Tab) 3 mg PO HS PRN PRN Reason: Insomnia Stop: 09/21/24 19:14 Last Admin: 08/22/24 20:49 Dose: 3 mg Documented By: CINTHYA Methimazole (Methimazole 5 Mg Tablet) 2.5 mg PO DAILY TOD Stop: 09/22/24 08:59 Last Admin: 08/23/24 08:51 Dose: 2.5 mg Documented By: TIMOTHY Metoprolol Succinate (Metoprolol Succ 50mg Ext Rel Tab) 50 mg PO BID TOD Stop: 09/21/24 20:59 Last Admin: 08/23/24 08:51 Dose: 50 mg Documented By: Admin: 08/22/24 20:50 Dose: 50 mg Documented By: CINTHYA Funes (Testosterone~Order Awaiting Action) 1 each N/A QS TOD Stop: 09/22/24 00:00 Last Admin: 08/23/24 08:48 Dose: Not Given Documented By: Admin: 08/23/24 01:07 Dose: Not Given Documented By: CINTHYA Funes (Remove Lidoderm Patch) 1 each N/A DAILY@2100 TOD Stop: 09/21/24 20:59 Last Admin: 08/22/24 21:50 Dose: 1 each Documented By: CINTHYA Multivitamins (Multivitamin Tab) 1 tab PO DAILY TOD Stop: 09/22/24 08:59 Last Admin: 08/23/24 08:51 Dose: 1 tab Documented By: TIMOTHY Pantoprazole Sodium (Pantoprazole 40 Mg Tab) 40 mg PO BID TOD Stop: 09/21/24 20:59 Last Admin: 08/23/24 08:51 Dose: 40 mg Documented By: Admin: 08/22/24 20:50 Dose: 40 mg Documented By: CINTHYA Polyethylene Glycol (Polyethylene (Miralax) 17 Gm Pack) 17 gm PO DAILY TOD Stop: 09/22/24 08:59 Last Admin: 08/23/24 08:57 Dose: Not Given Documented By: TIMOTHY Potassium Chloride (Potassium Chloride Crtab 20 Meq Tabcr) 20 meq PO DAILY TOD Stop: 09/22/24 08:59 Last Admin: 08/23/24 09:37 Dose: 20 meq Documented By: TIMOTHY Quetiapine Fumarate (Quetiapine Fumarate 25 Mg Tablet) 25 mg PO HS TOD Stop: 09/21/24 20:59 Last Admin: 08/22/24 20:50 Dose: 25 mg Documented By: CINTHYA Sertraline HCl (Sertraline Hcl 100 Mg Tablet) 200 mg PO DAILY TOD Stop: 09/22/24 08:59 Last Admin: 08/23/24 08:50 Dose: 200 mg Documented By: TIMOTHY Tamsulosin HCl (Tamsulosin Hcl 0.4 Mg Cap) 0.4 mg PO TOD Stop: 09/21/24 20:59 Last Admin: 08/22/24 20:50 Dose: 0.4 mg Documented By: CINTHYA Ticagrelor (Ticagrelor 90 Mg Tab) 90 mg PO BID TOD Stop: 09/21/24 20:59 Last Admin: 08/23/24 08:49 Dose: 90 mg Documented By: Admin: 08/22/24 20:50 Dose: 90 mg Documented By: CINTHYA Trazodone HCl (Trazodone Hcl 50 Mg Tab) 150 mg PO HS TOD Stop: 09/21/24 20:59 Last Admin: 08/22/24 20:49 Dose: 150 mg Documented By: CINTHYA Coding Level of Care Code 44530 IN/OBS CONSULT LVL 4,60M Diagnoses Dementia F03.90 Opioid use disorder F11.90 Anxiety F41.9 Drug induced akathisia G25.71
[2024-08-23] MEDS: TROLAMINE SALICYLATE 10% CRM 255 APPLN/85 GM TUBE EXT PRN (18:00)
[2024-08-23] MEDS: rOPINIRole HCL 0.25 MG TABLET PO ONE (18:35)
[2024-08-23] MEDS: GABAPENTIN 100 MG CAP PO SCH (22:32)
--- OUTSIDE RECORDS SUMMARY | 2024-08-24 02:43 | External Medical Summary | Summary of Care ---
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) Memory loss Delirium Procedures MRI BRAIN WITHOUT CONTRAST Noelle Duron MD [address] [id number] Phone: tel: fax: Referral ID Status Reason Start Date Expiration Date V isits Requested Visits Authorized [id number] Pending Review 08/21/2024 999 999 Reason for Visit * Reason Onset Date Comments Hospital Follow-Up Pt here today for a hospital discharge follow upFamily would like some help taking care of pt.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 Hospital Follow-Up 08/21/2024 Encounter Details Date Type Department Care Team (Late st Contact Info) Description 08/21/2024 10:20 AM EST Office Visit Kash Mcgregor [address] [phone] Noelle Duron MD [address] [id number] Generalized abdominal pain*; Screening for depression; 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 06/17/20 19 Active Ferrous Sulfate (IRON) 325 (65 Fe) MG TABS Take by mouth. Active Magnesium 250 MG Tablet Take 1 Tablet by mouth in the morning. Active Multiple Vitamins-Minera ls (MULTIVITAMIN ADULTS 50+) TABS Take by mouth. Active Aspirin 81 MG Oral Tablet Delayed Release Take 1 Tablet by mouth in the morning. Active Testosterone 20.25 MG/ACT (1.62%) Transdermal Gel (AndroGel Pump) Apply topically to affected area daily . 09/13/20 21 Active Vitamin C 500 MG Oral Tablet (Ascorbic Acid) Take 1 Tablet by mouth in the morning. Active Hydrocortisone 5 MG Oral Tablet (Cortef)Indicat ions:History of pituitary adenoma Take by mouth 1 Tablet in the morning AND 1 Tablet at noon AND 1 Tablet before bedtime. 540 Tablet 1 03/05/20 22 Active Caltrate 600+D3 Soft 600-800 MG-UNIT Oral Tablet Chewable (Calcium Carb-Cholecalci ferol) Active Klor-Con M20 20 MEQ Oral Tablet Extended Release 05/28/20 22 Active Dutasteride-Martel sulosin HCl 0.5-0.4 MG Oral Capsule Take 1 Capsule by mouth at bedtime. 90 Capsule 3 08/01/20 22 Active Doxazosin Mesylate 4 MG Oral Tablet (Cardura) Take 2 Tablets by mouth at bedtime. Active methIMAzole 5 MG Oral Tablet (Tapazole) Take 1 Tablet by mouth in the morning. 10/21/19 24 Active traZODone HCl 150 MG Oral Tablet (Desyrel) TAKE 1 TABLET IN THE EVENING 90 Tablet 3 11/12/19 24 Active Sertraline HCl 100 MG Oral Tablet (Zoloft)Indicat ions:Anxiety Take 2 by mouth daily in the morning 180 Tablet 3 11/13/19 24 Active Atorvastatin Calcium 40 MG Oral Tablet (Lipitor) Take 1 Tablet by mouth in the morning. 07/02/20 Active Ticagrelor 90 MG Oral Tablet (Brilinta) Take 1 Tablet by mouth in the morning and 1 Tablet before bedtime. 07/02/20 Active Isosorbide Mononitrate ER 30 MG Oral Tablet Extended Release 24 Hour (Imdur) Take 1 Tablet by mouth in the morning. 07/02/20 Active Lisinopril 20 MG Oral Tablet (Prinivil) Take 1 Tablet by mouth in the morning. 07/02/20 Active Metoprolol Succinate ER 50 MG Oral Tablet Extended Release 24 Hour (toPROL XL) Take 1 Tablet by mouth in the morning and 1 Tablet before bedtime. 07/02/20 Active Potassium Chloride ER 20 MEQ Oral Tablet Extended Release Take 1 Tablet by mouth in the morning. 04/20/20 24 Active Omeprazole 20 MG Oral Capsule Delayed Release (PriLOSEC) Take 1 Capsule by mouth 2 times a day 30 minutes before morning and evening meals. 180 Capsule 07/23/20 24 Active Bumetanide 1 MG Oral Tablet (Bumex) Take 1 Tablet by mouth in the morning. 90 Tablet 3 07/25/20 24 Active Acetaminophen-C odeine 300-30 MG Oral Tablet 1 Tablet. 07/31/20 24 Active Nitroglycerin 0.4 MG Sublingual Tablet Sublingual (Nitrostat) 1 Tablet. 07/23/20 24 Active Baclofen 10 MG Oral Tablet (Lioresal) 1 tab three times daily 90 Tablet 2 08/06/20 24 Active QUEtiapine Fumarate 25 MG Oral Tablet (SEROquel) Take 1 Tablet by mouth at bedtime. 30 Tablet 5 08/21/20 24 Active Dicyclomine HCl 20 MG Oral Tablet (Bentyl) Take 1 Tablet by mouth in the morning and 1 Tablet at noon and 1 Tablet before bedtime. 270 Tablet 3 11/13/19 24 024 Discontinued busPIRone HCl 5 MG Oral Tablet (Buspar)Indicat ions:Anxiety Take 1 Tablet by mouth in the morning and 1 Tablet at noon and 1 Tablet before bedtime. 90 Tablet 5 07/16/20 24 024 Discontinued documented as of this encounter (statuses as of 08/21/2024) Active Problems Problem Noted Date Diagnosed Date Dementia due to medical cond ition without behavioral disturbance 08/21/2024 Delirium 08/21/2024 Chronic kidney disease, stage 3a 05/29/2021 Overview: [...] as of this encounter (statuses as of 08/21/2024) Resolved Problems Problem Noted Date Diagnosed Date [...] as of this encounter (statuses as of 08/21/2024) Immunizations Name Administration Dates Next Due COVID-19 mRNA, LNP-s, No Pre serve, 2-Dose Series ([facility]) 03/30/2022,06/19/2021,11/11/2020,10/21 COVID-19, MRNA-LNP, 24-25, P R, 30MCG/0.3ML, IM, 12YRS AND ABOVE [facility] 05/25/2024 COVID-19, MRNA-LNP, PF, 30 M CG/0.3 mL, 12 YRS AND ABOVE, [facility] ([facility]) 11/25/2023 Covid-19, Mrna, Lnp-s, Pf, B ivalent, 30 Mcg, IM, 12 yrs and above ([facility]) 06/15/2022 H1N1 2009 Influenza, IM 10/27/2009 Pneumococcal Conjugate Vacci ne, 20-valent ([id number]) 06/07/2022 Pneumococcal Polysaccharide PPV23 (Pneumovax) 10/22/2006 Season [...] Date Recorded PHQ Adult Total Score 0 08/21/2024 Hunger Vital Sign Answer Date Recorded Within [...] 02/26/2024 Does the household have a re lar source of income? (Household - for ages [...] Sign Reading Time Taken Comments Blood Pressure 155/74 08/21/2024 10:22 AM EST Pulse 91 08/21/2024 10:22 AM EST Temperature 36.3 C (97.3 F) 08/21/2024 10:[address] Respiratory Rate 18 08/21/2024 10:22 AM EST Oxygen Saturation 98% 08/21/2024 10:22 AM EST Inhaled Oxygen Concentration - - Weight 73.5 kg (162 lb) 08/21/2024 10:22 AM EST Height - - Body Mass Index 25.37 08/04/2024 11:01 AM EST documented in this encounter Patient Instructions * Patient Instructions* Delilah Man LPN - 08/21/2024 10:37 AM EST Patient Instructions - Fall Prevention (This education is for all patients over 65 regardless of symptoms) Remember to take your current medications as prescribed. In order to prevent falls, you are encouraged to: Exercise Utilize assistive/adaptive devices Avoid multifocal lenses when walking Avoid hazards in home Maintain a regular toileting schedule Any questions please contact our office. Preventing Falls in the Home (This education is for all patients over 65 regardless of symptoms) As you get older, falls are more likely. Thats because your reaction time slows. Your muscles and joints may also get stiffer, making them less flexible. Illness, medications, and vision changes can also affect your balance. A fall could leave you unable to live on your own. To make your home safer, follow these tips: Floors Put nonskid pads under area rugs Remove throw rugs Replace worn floor coverings Tack carpets firmly to each step on carpeted stairs. Put nonskid strips on the edges of uncarpeted stairs Keep floors and stairs free of clutter and cords Arrange furniture so there are clear pathways Clean up any spills right away Bathrooms Install grab bars in the tub or shower Apply nonskid strips or put a nonskid rubber mat in the tub or shower Sit on a bath chair to bathe Use bathmats with nonskid backing Lighting Keep a flashlight in each room Put a nightlight along the pathway between the bedroom and the bathroom [employer] Patient Education Copyright 2008 - 2010 José except where otherwise noted Preventing Falls: Exercises to Improve Balance, Flexibility, Strength, and Staying Power (This education is for all patients over 65 regardless of symptoms) Certain types of exercises may help make you less likely to fall. Try the ones below. Or do other exercises that your healthcare provider suggests. Depending on your health, you may need to start slowly. Dont let that stop you. Even small amounts of exercise can help you. Be sure to talk to yourhealthcare provider before starting any exercise program. Improve Balance Many types of exercise can help improve balance. Douglas chi and yoga are good examples. Heres another one to try. You can do it anytime and almost anywhere. Stand next to a counter or solid support. Push yourself up onto your tiptoes. Hold for 5 seconds. If you start to lose your balance, hold on to the counter. Rest and repeat 5 times. Work up to holding for 20 to 30 seconds, if you can. Increase Flexibility Being more flexible makes it easier for you to move around safely. Try exercises like the seated hamstring stretch. Sit in a chair and put one foot on a stool. Straighten your leg and reach with both hands down either side of your leg. Reach as far down your leg as you can. Hold for about 20 seconds. Go back to the starting position. Then repeat 5 times. Switch legs. Build Strength Resistance exercises help build strength. You can do them without equipment. Or you can use weights, elastic bands, or special machines. One such exercise is called the biceps curl. You can hold a 1 pound weight or even a can of soup. Do this exercise at least 3 times a week. Strive for everyday. Sit up straight in a chair. Keep your elbow close to your body and your wrist straight. Bend your arm, moving your hand up to your shoulder. Then slowly lower your arm. Repeat 5 times. Switch to the other arm. Build Your Staying Power Aerobic exercises make your heart and lungs stronger so you can keep moving longer. Walking and swimming are two of the best types of exercises you can do. Using a stationary bike is great, too. Find an aerobic exercise that you enjoy. Start slowly and build up. Even 5 minutes is helpful. Aimfor a goal of 30 minutes, at least 3 times a week. You dont have to do 30 minutes in one session. Break it up and walk a little throughout the day. More Helpful Tips Start easy. Slowly work up to doing more. Talk with your healthcare provider about the best exercises for you. Call senior centers or health clubs about exercise programs. If needed, have a family member watch you walk every so often to check your stability. Exercise with a friend. Choose an activity you both enjoy. Try exercises that you can do anytime, anywhere. Here are two examples. Have someone with you when you first try these: Practice walking by placing one foot right in front of the other. Stand up and sit down 10 times. Repeat this throughout the day. [employer] Patient Education Copyright 2008 [employer] except where otherwise noted. Preventing Falls: Moving Safely Using a Cane or Walker (This education is for all patients over 65 regardless of symptoms) Keep the cane away from your feet so you dont trip. A walking aid, such as a cane or walker, can help you stay more independent and avoid falls. Remember to keep your walking aid within easy reach when youre in a chair or in bed. And learn how to use it safely so you dont injure yourself. Using a Cane If you have a stronger side, hold the cane on that side. Get your balance. Move the cane and your weaker leg forward. Support your weight on both the cane and your weaker side. Step with your stronger leg. Start again from step 1. If youre using a folding walker, be sure you know how to lock it open. Check that its locked open before each use. Using a Walker Roll the walker (or lift it, if youre using one without wheels) forward about 12 inches. Step forward with your weaker leg first. Use the walker to help keep your balance. Bring your other foot forward to the center of the walker. Start again from step 1. Helpful Tips Check with your healthcare provider about the right walking aid to use. Ask about a walker with a seat attached. Check the tips of your cane or walker to make sure they have nonskid covers. Move slowly from room to room. Dont chu. Sit down to get dressed. Use a janis pack or backpack to keep your hands free. Get help for jobs that mean climbing, even on a stepstool. [employer] Patient Education Copyright 2008 [employer] except where otherwise noted. Treating Urinary Incontinence in Men (This education is for all patients over 65 regardless of symptoms) You can't always control the release of urine. You may leak urine. Or you may not be able to hold your urine until you can get to a bathroom. This is called urinary incontinence. The problem can be managed. Talk to your doctor about your treatment options. Taking Medications Prescription medications may help you. They may: Help the sphincter to work better. (This is the muscle that closes to keep urine from leaking out of the bladder.) Help stop the bladder from karl too often to push urine out. Help the bladder muscles contract with more force. Help relax the sphincter muscle and allow urine to flow more freely. Making Changes to Your Routine Certain changes in your daily routine may help. These include: Avoiding caffeine and alcohol. Using timed voiding. This is following a schedule for drinking fluids and urinating. Doing Kegel exercises daily. These exercises involve tightening the muscles in your sphincter and around your bladder to help strengthen them. Your doctor can explain how to do them. Using a Catheter A catheter is a narrow tube that is inserted through the urethra into the bladder. It drains urine.A condom catheter covers the penis. It channels urine into a collection bag. It is worn most of thetime. Intermittent catheterization means inserting a catheter to drain the bladder, then removing it. This is done on a regular schedule. Having Surgery If other options don't work, surgery may be recommended. If surgery is an option, your healthcare provider can discuss it with you and explain its risks and benefits. Healing After Prostate Surgery Surgery on the prostate gland can cause incontinence. Most often, the incontinence is only for a short time. It clears up when healing is complete. Very rarely, prostate surgery can result in permanent incontinence. documented in this encounter Progress Notes * Noelle Duron MD - 08/21/2024 1:00 PM EST Subjective Kai Wilkerson is a 84 year old male. Chief Complaint Patient presents with Hospital Follow-Up Pt here today for a hospital discharge follow up Family would like some help taking care of pt. 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 Hospital Follow-Up HPI: Here for hospital f/u - with family members Admission aug 10 discharge aug 12 And also visited ER last night for abd pain He was originally admitted for chest pain, which has resolved Last week he c/o back pain and now has abd pain upper to middle last 5-6 days Last night in ER CT a/p didn't show any acute finding He has been showing severe agitation, anxiety and memory issue , comes and goes In the hospital , he had delirium MMSE score 22 today Had tried buspar, hydroxyzine , didn't help Shows agitation, up all night too Has been taking zofran, bentyl for his abd sx Had CT head in the hospital, no acute finding per family PMH: Patient Active Problem List Diagnosis HTN, goal below 140/90 BPH with obstruction/lower urinary tract symptoms Osteoarthrosis, unspecified whether generalized or localized, other specified sites Restless leg syndrome Irritable bowel syndrome Chronic sinusitis Pulsatile tinnitus MEDICATION USE AGREEMENT History of malignant melanoma 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 Ferrous Sulfate (IRON) 325 (65 Fe) MG [...] TABLET IN THE EVENING 90 Tablet 3 Sertraline HCl 100 MG Oral [...] 1 Tablet by mouth in the morning. Omeprazole 20 MG Oral Capsule Delayed Release (PriLOSEC) Take 1 Capsule by mouth 2 times a day 30 minutes before morning and evening meals. 180 Capsule 0 Bumetanide 1 MG Oral Tablet (Bumex) Take 1 Tablet by mouth in the morning. 90 Tablet 3 Nitroglycerin 0.4 MG Sublingual Tablet Sublingual (Nitrostat) 1 Tablet. Baclofen 10 MG Oral Tablet (Lioresal) 1 tab three times daily 90 Tablet 2 QUEtiapine Fumarate 25 MG Oral Tablet (SEROquel) Take 1 Tablet by mouth at bedtime. 30 Tablet 5 Acetaminophen-Codeine 300-30 MG Oral Tablet 1 Tablet. (Patient not taking: Reported on 08/21/2024) No current facility-administered medications for this visit. 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 follows with [facility] Osteoarthrosis, unspecified whether generalized or localized, other specified sites OTHER Tumor L optiv nerve - Dr Jacome Pulsatile tinnitus 07/10/05 [place] Restless leg syndrome Past Surgical History: Procedure Laterality Date COLONOSCOPY 09/16/2000 nl - repeat 2009 EGD, FLEXIBLE, DIAGNOSTIC 06/16/2021 tortuous esophagus / ESOPHAGOGASTRODUODENOSCOPY (EGD), FLEXIBLE, TRANSORAL, DIAGNOSTIC performed byWang Salazar MD at ENDOSCOPY [facility] LUMBAR / SACRAL EPIDURAL, SINGLE LEVEL 07/17/2021 INJECTION TRANSFORAMINAL EPIDURAL LUMBAR OR SACRAL performed by Eduardo Pineda, DO at OR [facility] LUMBAR / SACRAL EPIDURAL, SINGLE LEVEL 09/30/2023 INJECTION TRANSFORAMINAL EPIDURAL LUMBAR OR SACRAL performed by Aj Mchugh, DO at OR [facility] REMOVAL OF PITUITARY GLAND OR TUMOR 2019 Review of patient's allergies indicates: Allergen Reactions Lidocaine Itching Family History Problem Relation Name Age of Onset Heart Disorder Mother OK - 70's Heart Disorder Father chf - 70's Breast Cancer Daughter 33 treated with surgery. chemo and radiation Family Status Relation Status Mo Fa Sis Alive Bro Alive Peyton Alive Son Alive Social History Socioeconomic History Marital status: Spouse name: Not on file Number of children: Not on file Years of education: Not on file Highest education level: Not on file Occupational History Not on file Tobacco Use Smoking status: Former Types: Cigarettes Passive exposure: Never Smokeless tobacco: Never Tobacco comments: quit in 1968 Vaping Use Vaping status: Never Used Substance and Sexual Activity Alcohol use: Not Currently Drug use: Never Sexual activity: Not on file Other Topics Concern Not on file Social History Narrative Not on file Social Needs Financial Resource Strain: Low Risk (07/21/2024) Received from [facility] ([facility] Financial Resource Strain Sometimes people find that their income does not quite cover their living costs. In the last 12 months, has this happened to you?: No What is your current work situation? 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 (Adult - for ages 18 years and over):Never True Does your family have a hard time getting a ride to doctors visits? (Household - for ages 0-17 years): Not on file Has lack of transportation kept you from medical appointments, meetings, work, or from getting things needed for daily living? Check all that apply. (Adult - for ages 18 years and over): Not on file Do you (or your family) have trouble finding or paying for a ride (transportation)? (Household - for ages 0-17 years): Not on file Social Connections: Low Risk (07/21/2024) Received from [facility] ([facility]) Social Connections How often do you feel isolated from others?: Hardly ever Housing Stability: Low Risk (07/21/2024) Received from [facility] ([facility]) Housing Stability Are you worried about losing your housing?: No In the past 12 months has the [employer], gas, oil, or water [employer] threatened to shut off services in your home?: No Review of Systems Constitutional: Positive for activity change, appetite change and fatigue. Negative for chills, diaphoresis, fever and unexpected weight change. HENT: Positive for hearing loss. Eyes: Negative for visual disturbance. Respiratory: Negative for cough, chest tightness, shortness of breath and wheezing. Cardiovascular: Negative for chest pain, palpitations and leg swelling. Gastrointestinal: Positive for abdominal pain, diarrhea and nausea. Negative for abdominal distention, constipation (?) and vomiting. Endocrine: Negative. Genitourinary: Negative for dysuria and hematuria. Neurological: Negative for dizziness, light-headedness and headaches. Psychiatric/Behavioral: Positive for agitation, behavioral problems, confusion, decreased concentration, dysphoric mood and sleep disturbance. Negative for hallucinations, self-injury and suicidal ideas. The patient is nervous/anxious. The patient is not hyperactive. Objective BP 155/74 | Pulse 91 | Temp 97.3 F (36.3 C) (Infrared ) | Resp 18 | Wt 162 lb (73.5 kg) | SpO2 98% | BMI 25.37 kg/m | BSA 1.86 m Physical Exam Constitutional: General: He is in acute distress. Appearance: Normal appearance. He is ill-appearing. He is not toxic-appearing or diaphoretic. HENT: Head: Normocephalic and atraumatic. Nose: Nose normal. Eyes: Extraocular Movements: Extraocular movements intact. Cardiovascular: Rate and Rhythm: Normal rate and regular rhythm. Pulses: Normal pulses. Pulmonary: Effort: Pulmonary effort is normal. No respiratory distress. Breath sounds: Normal breath sounds. Abdominal: General: There is no distension. Tenderness: There is abdominal tenderness. Musculoskeletal: Cervical back: Normal range of motion. Right lower leg: No edema. Left lower leg: No edema. Neurological: General: No focal deficit present. Mental Status: He is alert and oriented to person, place, and time. Cranial Nerves: No cranial nerve deficit. Psychiatric: Behavior: Behavior normal. 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 Follow Up: Return in about 1 week (around 08/28/2024) for Clinic Visit. | For: Clinic Visit | Check-out note: Mri brain Dulcolax and liquid diet for 24-36 hours after xray Stop bentyl, zofran Stop anxiety med Start seroquel F/u MRI brain Consider dementia med after pain gets better Noelle Duron MD * Delilah Man LPN - 08/21/2024 10:37 AM EST Fall Risk Plan of Care Documentation: - Current medications reconciled Patient encouraged to: - Exercise - Provide education materials for Core strengthening - Utilize assistive/adaptive devices - Provide education materials - Avoid multifocal lenses when walking - Avoid hazards in home - Provide education materials - Maintain a regular toileting schedule Delilah Man LPN 08/21/2024 documented in this encounter Nursing Notes * Delilah Man LPN - 08/21/2024 10:16 AM EST Chief Complaint Patient presents with Hospital Follow-Up Pt here today for a hospital discharge follow up Family would like some help taking care of pt. 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 [address] [phone] Noelle Duron MD [address] [address] 09/28/2024 1:00 PM EST [facility] Munoz [address] [phone] Shalom Lieberman MD [address] [phone] Pending Results Name Type Priority Associated Diagnoses Date /Time XR ABDOMEN 1 VIEW Medical Imaging Routine Generalized abdominal pain 08/21/2024 11:40 AM EST Scheduled Orders Name Type Priority Associated Diagnoses Orde r Schedule NEUROBEHAVIOR EXAM W/PSYCHOL/PHYS,PER HOUR Procedures Routine Screening for depression Dementia due to medical condition without behavioral disturbance (HCC) Memory loss Ordered: 08/21/2024 MRI BRAIN WITHOUT CONTRAST Medical Imaging Routine Dementia due to medical condition without behavioral disturbance (HCC) Memory loss Delirium Expected: 08/21/2024, Expires: 09/21/2025 Health Maintenance Due Date Last Done Comments Adult Wellness Visit 03/08/2024 03/08/2023, 03/07/2022, 02/21/2021 GFR 07/01/2024 12/31/2023, 09/16, 12/17/2022, Additional history exists COVID-19 Vaccine ( season) 2024 05/25/2024, 11/25/2023, 06/20/2023, Additional history exists CKD HGB USE SMARTSET 14205 09/25/202409/25, 06/27/2022, 12/29/2021, Additional history exists CKD PHOS USE SMARTSET 89217 09/25/202409/16, 06/27/2022, 03/07/2022 Albumin/Creatinine Ratio 12/30/2024 12/31/2023, 04/0 11/2022 Depression Screening 08/21/2025 08/21/2024 DTap/Tdap Vaccines (2 - Td or Tdap) [...] as of this encounter Visit Diagnoses Diagnosis Generalized abdominal pain- Primary Abdominal pain, generalized Screening for depression Dementia due to medical condition without behavioral disturbance (HCC) Other persistent 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 Memory loss Risk and functional assessment Screening for unspecified condition Hospital discharge follow-up Other follow-up examination Delirium Other alteration of consciousness HTN, goal below 140/90 Unspecified essential hypertension Hyperthyroidism Thyrotoxicosis without mention of goiter or other cause, without mention of thyrotoxic crisis or storm Chronic kidney disease, stage 3a (HCC) documented in this encounter Care Teams Dairy Frozen Manager Relationship Specialty Start Date End Date Noelle Duron MD [address] [place] [address] PCP - General Internal Medicine 03/27/24 documented as of this encounter"
--- OUTSIDE RECORDS SUMMARY | 2024-08-24 02:43 | External Medical Summary | Summary of Care ---
Author Name Unknown Organization [facility] Address [address] [place] [address] Phone [phone] Care Team Providers Care Hop Sorter Name Role Phone Noelle Duron MD Primary Care Provider [phone] Encounter Details Date Type Department Care Team (Late st Contact Info) Description 08/21/2024 Telephone [facility] [address] [place] [address] Noelle Duron MD [address] [place] [address] Allergies Active Allergy Reactions Criticality Noted Date [...] THE EVENING 90 Tablet 3 4 Active Sertraline HCl 100 [...] by mouth in the morning. 4 Active Omeprazole 20 MG Oral Capsule [...] times daily 90 Tablet 2 4 Active QUEtiapine Fumarate 25 MG Oral Tablet (SEROquel) Take 1 Tablet by mouth at bedtime. 30 Tablet 5 4 Active documented as of this encounter [...] mRNA, LNP-s, No Pre serve, 2-Dose Series (Accellos) 03/30/2022,06/19/2021,11/11/2020,10/21 COVID-19, MRNA-LNP, 24-25, P R, 30MCG/0.3ML, IM, 12YRS AND ABOVE ([employer]) 05/25/2024 COVID-19, MRNA-LNP, PF, 30 M CG/0.3 mL, 12 YRS AND ABOVE, IM (OrderingOnlineSystem.com) 11/25/2023 Covid-19, Mrna, Lnp-s, Pf, B ivalent, 30 Mcg, IM, 12 yrs and above (Accellos) 06/15/2022 H1N1 2009 Influenza, IM 10/27/2009 Pneumococcal Conjugate Vacci ne, 20-valent ([id number]) 06/07/2022 Pneumococcal Polysaccharide PPV23 (Pneumovax) 10/22/2006 Season [...] PM EDT documented as of this encounter Miscellaneous Notes * Telephone Encounter - Haylie Ortega LPN - 08/21/2024 1:35 PM EST Called and spoke with patients and she is aware of information from Dr. Duron * Telephone Encounter - Noelle Duron MD - 08/21/2024 1:07 PM EST Xray showed a lot of stool , gracia upper abd B/l with some gas So as discussed please take dulcolax 5 mg two tabs with liquid diet and repeat 1-2 more tabs tmrw documented in this encounter Plan of Treatment Upcoming Encounters Date Type Department Care Team (Late st Contact Info) Description 08/31/2024 12:40 PM EST Office Visit [facility] [address] [phone] Noelle Duron MD [address] [address] 09/28/2024 1:00 PM EST Office Visit [facility] [address] [phone] Shalom Lieberman MD [address] [phone] Health Maintenance Due Date Last Done Comments Adult Wellness Visit 03/08/2024 03/08/2023, 03/07/2022, 02/21/2021 GFR 07/01/2024 12/31/2023, 09/16, 12/17/2022, Additional history exists COVID-19 Vaccine ( season) 2024 05/25/2024, 11/25/2023, 06/20/2023, Additional history exists CKD HGB USE SMARTSET 16087 09/25/202409/25, 06/27/2022, 12/29/2021, Additional history exists CKD PHOS USE SMARTSET 64928 09/25/202409/16, 06/27/2022, 03/07/2022 Albumin/Creatinine Ratio 12/30/2024 12/31/2023, 11/2022 Depression Screening 08/21/2025 08/21/2024 DTap/Tdap Vaccines [...] Not on filedocumented as of this encounter Care Teams Hop Sorter Relationship Specialty Start Date End Date Noelle Duron MD [address] [facility] [place] [address] PCP - General Internal Medicine 03/27/24 documented as of this encounter
--- OUTSIDE RECORDS SUMMARY | 2024-08-24 02:43 | External Medical Summary | Summary of Care ---
Author Name Unknown Organization [facility] Address [address] [place] [address] Phone [phone] Care Team Providers Care Credit Control Administrator Name Role Phone Noelle Duron MD Primary Care Provider [phone] Encounter Details Date Type Department Care Team (Late st Contact Info) Description 08/21/2024 Telephone [facility] [address] [place] [address] Noelle Duron MD [address] [place] [address] Allergies Active Allergy Reactions Criticality Noted Date [...] mRNA, LNP-s, No Pre serve, 2-Dose Series ([employer] 03/30/2022,06/19/2021,11/11/2020,10/21 COVID-19, MRNA-LNP, 24-25, P R, 30MCG/0.3ML, IM, 12YRS AND ABOVE ([employer] Systems[employer]ThisNext) 05/25/2024 COVID-19, MRNA-LNP, PF, 30 M CG/0.3 mL, 12 YRS AND ABOVE, IM (Therma [employer]ite) 11/25/2023 Covid-19, Mrna, Lnp-s, Pf, B ivalent, 30 Mcg, IM, 12 yrs and above ([employer] 06/15/2022 H1N1 2009 Influenza, IM 10/27/2009 Pneumococcal Conjugate Vacci ne, 20-valent ([id number]) 06/07/2022 Pneumococcal Polysaccharide PPV23 (Pneumovax) 10/22/2006 Season [...] encounter Miscellaneous Notes * Telephone Encounter - Noelle Duron MD [...] Description 08/31/2024 12:40 PM EST [facility] [address] [phone] Noelle Duron MD [address] [address] 09/28/2024 1:00 PM EST [facility] [address] [phone] Shalom Lieberman MD [address] [address] Health Maintenance Due Date Last Done Comments Adult Wellness Visit 03/08/2024 03/08/2023, 03/07/2022, 02/21/2021 GFR 07/01/2024 12/31/2023, 09/16, 12/17/2022, Additional history exists COVID-19 Vaccine ( season) 2024 05/25/2024, 11/25/2023, 06/20/2023, Additional history exists CKD HGB USE SMARTSET 71798 09/25/202409/25, 06/27/2022, 12/29/2021, Additional history exists CKD PHOS USE SMARTSET 15546 09/25/202409/16, 06/27/2022, 03/07/2022 Albumin/Creatinine Ratio 12/30/2024 12/31/2023, 04/11/2022 Depression Screening 08/21/2025 08/21/2024 DTap/Tdap Vaccines (2 [...] filedocumented as of this encounter Care Teams Credit Control Administrator Relationship Specialty Start Date End Date Noelle Duron MD [address] [place] [address] PCP - General Internal Medicine 03/27/24 documented as of this encounter
--- OUTSIDE RECORDS SUMMARY | 2024-08-24 02:43 | External Medical Summary | Summary of Care ---
Author Name Unknown Organization [facility] Address [address] [place] [address] Phone [phone] Care Team Providers Care Strain Technician Name Role Phone Noelle Duron MD Primary Care Provider [phone] Reason for Visit * Reason Onset Date Comments Advice 08/18/2024 Encounter Details Date Type Department Care Team (Late st Contact Info) Description 08/18/[address] [facility] [address] [place] [phone] Noelle Duron MD [address] [place], [place] [phone] Advice Allergies No known active allergiesdocumented as of [...] mRNA, LNP-s, No Pre serve, 2-Dose Series (Stypi) 03/30/2022,06/19/2021,11/11/2020,10/21 COVID-19, MRNA-LNP, 24-25, P R, 30MCG/0.3ML, IM, 12YRS AND ABOVE ([employer]Who) 05/25/2024 COVID-19, MRNA-LNP, PF, 30 M CG/0.3 mL, 12 YRS AND ABOVE, IM ([employer]) 11/25/2023 Covid-19, Mrna, Lnp-s, Pf, B ivalent, 30 Mcg, IM, 12 yrs and above (Stypi) 06/15/2022 H1N1 2008 Influenza, IM 10/27/2009 Pneumococcal Conjugate Vacci ne, 20-valent ([id number]) 06/07/2022 Pneumococcal Polysaccharide PPV23 (Pneumovax) 10/22/2006 Season [...] encounter Miscellaneous Notes * Telephone Encounter - Mary Sen LPN - 08/21/2024 8:05 AM EST Patient's EC Silvana aware and verbalized understanding, will comply * Telephone Encounter - Delilah Man LPN - 08/20/2024 4:24 PM EST Attempted to call patient, there was no answer, left voicemail. When patient returns call, ok for RASHID to relay message, please refer to below documentation. If needed, can transfer to dedicated nurse line. * Telephone Encounter - Noelle Duron MD - 08/20/2024 3:10 PM EST Will see him tmrw as schedule * Telephone Encounter - Amada Montes OSA - 08/19/2024 9:54 AM EST Person calling: Silvana Relationship to patient: spouse Phone/Fax to return call: [phone] Reason for call(brief): Pt spouse requests to speak to a nurse re her condition, and what she can do. She is inquiring about testing. Please advise. Thank you Pharmacy: Provider Name:Domi * Telephone Encounter - Patricia Garibay OSA - 08/18/2024 10:57 AM EST Pt. is calling in in regards to pt. As he is currently in a mental facility and will be discharged soon. Silvana says that she is "in over her head" and is unsure what to do in regards to pt.Care. Silvana is looking to speak with a nurse to give her some advice on what the best things she can do would be. Attempted to transfer call to dedicated nurse line but nobody was able to take my call. Please call pt. back as soon as possible to help guide her. Silvana would like to note that she will not be available from 12:30-1:30 08/18 as she will be in conference call with facility pt. Is staying at documented in this encounter Plan of Treatment Upcoming Encounters Date Type Department Care Team (Late st Contact Info) Description 08/21/2024 10:20 AM EST Office Visit [facility] [address] [phone] Noelle Duron MD [address] [address] 09/28/2024 1:00 PM EST Office Visit [facility] [address] [phone] Shalom Lieberman MD [address] [address] Health Maintenance Due Date Last Done Comments Adult Wellness Visit 03/08/2024 03/08/2023, 03/07/2022, 02/21/2021 Depression Screening 03/08/2024 03/08/2023 GFR 07/01/2024 12/31/2023, 09/16, 12/17/2022, Additional history exists COVID-19 Vaccine (2023- season) 2024 05/25/2024, 11/25/2023, 06/20/2023, Additional history exists CKD HGB USE SMARTSET 98031 09/25/202409/25, 06/27/2022, 12/29/2021, Additional history exists CKD PHOS USE SMARTSET 47841 09/25/202409/16, 06/27/2022, 03/07/2022 Albumin/Creatinine Ratio 12/30/2024 12/31/2023, 11/2022 DTap/Tdap Vaccines (2 - Td or Tdap) [...] filedocumented as of this encounter Care Teams Strain Technician Relationship Specialty Start Date End Date Noelle Duron MD [address] [place] [address] PCP - General Internal Medicine 03/27/24 documented as of this encounter
--- OUTSIDE RECORDS SUMMARY | 2024-08-24 02:44 | External Medical Summary | Summary of Care ---
Author Name Unknown Organization [facility] Address [address] [place] [address] Phone [phone] Care Team Providers Care Insulation Board Calender Operator Name Role Phone Noelle Duron MD Primary Care Provider [phone] Reason for Visit * Reason Onset Date Comments Advice 08/18/2024 Encounter Details Date Type Department Care Team (Late st Contact Info) Description 08/18/2024 Telephone [facility] [address] [place] [phone] Noelle Duron MD [address] [place], [place] [phone] Advice Allergies No known active allergiesdocumented as of this encounter (statuses as of 08/20/2024) Medications hydrOXYzine HCl 25 MG tablet Take [...] as of this encounter (statuses as of 08/20/2024) Active Problems Problem Noted Date Diagnosed Date [...] as of this encounter (statuses as of 08/20/2024) Resolved Problems Problem Noted Date Diagnosed Date [...] as of this encounter (statuses as of 08/20/2024) Immunizations Name Administration Dates Next Due COVID-19 mRNA, LNP-s, No Pre serve, 2-Dose Series (Order[employer]) 03/30/2022,06/19/2021,11/11/2020,10/21 COVID-19, MRNA-LNP, 24-25, P R, 30MCG/0.3ML, IM, 12YRS AND ABOVE ([employer]) 05/25/2024 COVID-19, MRNA-LNP, PF, 30 M CG/0.3 mL, 12 YRS AND ABOVE, IM (Dapper) 11/25/2023 Covid-19, Mrna, Lnp-s, Pf, B ivalent, 30 Mcg, IM, 12 yrs and above (OrderMotion) 06/15/2022 H1N1 2008 Influenza, IM 10/27/2009 Pneumococcal Conjugate Vacci ne, 20-valent ([id number]) 06/07/2022 Pneumococcal Polysaccharide PPV23 (Pneumovax) 10/22/2006 Season [...] to patient: spouse Phone/Fax to return call: [phone] Reason for call(brief): Pt spouse requests to [...] that she will not be available from :30-1:30 08/18 as she will be in conference call with facility pt. Is staying at documented in this encounter Plan of Treatment Upcoming Encounters Date Type Department Care Team (Late st Contact Info) Description 08/21/2024 10:20 AM EST [facility] [address] [phone] Noelle Duron MD [address] [address] 09/28/2024 1:00 PM EST Office Visit [facility] Kash Munoz [address] [phone] Shalom Lieberman MD [address] [address] Health Maintenance Due Date Last Done Comments Adult Wellness Visit 03/08/2024 03/08/2023, 03/07/2022, 02/21/2021 Depression Screening 03/08/2024 03/08/2023 GFR 07/01/2024 12/31/2023, 09/16, 12/17/2022, Additional history exists COVID-19 Vaccine ( season) 2024 05/25/2024, 11/25/2023, 06/20/2023, Additional history exists CKD HGB USE SMARTSET 88911 09/25/202409/25, 06/27/2022, 12/29/2021, Additional history exists CKD PHOS USE SMARTSET 27760 09/25/202409/16, 06/27/2022, 03/07/2022 Albumin/Creatinine Ratio 12/30/2024 12/31/2023, [...] filedocumented as of this encounter Care Teams Insulation Board Calender Operator Relationship Specialty Start Date End Date Noelle Duron MD [address] [place] [address] PCP - General Internal Medicine 03/27/24 documented as of this encounter
--- OUTSIDE RECORDS SUMMARY | 2024-08-24 02:44 | External Medical Summary | Summary of Care ---
Author Name Unknown Organization [facility] Address [address] [place] [address] Phone [phone] Care Team Providers Care Podiatric Technician Name Role Phone Noelle Duron MD Primary Care Provider [phone] Reason for Visit * Reason Onset Date Comments FYI 08/19/2024 Encounter Details Date Type Department Care Team (Late st Contact Info) Description 08/19/2024 Telephone [facility] [address] [place] [phone] Noelle Duron MD [address] [place], [place] [phone] FYI Allergies No known active allergiesdocumented as of [...] mRNA, LNP-s, No Pre serve, 2-Dose Series ([employer]) 03/30/2022,06/19/2021,11/11/2020,10/21 COVID-19, MRNA-LNP, 24-25, P R, 30MCG/0.3ML, IM, 12YRS AND ABOVE ([facility]) 05/25/2024 COVID-19, MRNA-LNP, PF, 30 M CG/0.3 mL, 12 YRS AND ABOVE, IM ([employer]) 11/25/2023 Covid-19, Mrna, Lnp-s, Pf, B ivalent, 30 Mcg, IM, 12 yrs and above ([employer]) 06/15/2022 H1N1 2008 Influenza, IM 10/27/2009 Pneumococcal Conjugate Vacci ne, 20-valent ([id number]) 06/07/2022 Pneumococcal Polysaccharide PPV23 (Pneumovax) 10/22/2006 Season [...] Encounter - Noelle Duron MD - 08/20/2024 3:09 PM EST Noted * Telephone Encounter - Mayda Tillman OSA - 08/19/2024 1:54 PM EST Pt calling as pt has an appt on Saturday and she does not feel like speaking up in the appt because pt would get mad. She wants to inform the provider that they are requesting extensive mental health eval and dementiatesting. He needs to have this completed because the pt is currently admitted to [facility]. Pt does have an appt with psychiatry next week in [place] Please contact her back with any questions documented in this encounter Plan of Treatment Upcoming Encounters Date Type Department Care Team (Late st Contact Info) Description 08/21/2024 10:20 AM EST Office Visit [facility] [address] [phone] Noelle Duron MD [address] [address] 09/28/2024 1:00 PM EST Office Visit [facility] [address] [phone] Shalom Lieberman MD [address] [place] [address] Health Maintenance Due Date Last Done Comments Adult Wellness Visit 03/08/2024 03/08/2023, 03/07/2022, 02/21/2021 Depression Screening 03/08/2024 03/08/2023 GFR 07/01/2024 12/31/2023, 09/16, 12/17/2022, Additional history exists COVID-19 Vaccine ( season) 2024 05/25/2024, 11/25/2023, 06/20/2023, Additional history exists CKD HGB USE SMARTSET 62929 09/25/202409/25, 06/27/2022, 12/29/2021, Additional history exists CKD PHOS USE SMARTSET 08073 09/25/202409/16, 06/27/2022, 03/07/2022 Albumin/Creatinine Ratio 12/30/2024 12/31/2023, [...] filedocumented as of this encounter Care Teams Podiatric Technician Relationship Specialty Start Date End Date Noelle Duron MD [address] [address] PCP - General Internal Medicine 03/27/24 documented as of this encounter
--- OUTSIDE RECORDS SUMMARY | 2024-08-24 02:44 | External Medical Summary | Summary of Care ---
Author Name Unknown Organization [facility] Address [address] [place] [address] Phone [phone] Care Team Providers Care House Servant Name Role Phone Noelle Duron MD Primary Care Provider [phone] Encounter Details Date Type Department Care Team (Late st Contact Info) Description 08/11/2024 Orders Only [facility] [address] [place] [phone] Shalom Lieberman MD [address] [place] [address] Allergies No known active allergiesdocumented as of this encounter (statuses as of 08/11/2024) Medications hydrOXYzine HCl 25 MG tablet Take [...] as of this encounter (statuses as of 08/11/2024) Active Problems Problem Noted Date Diagnosed Date [...] as of this encounter (statuses as of 08/11/2024) Resolved Problems Problem Noted Date Diagnosed Date [...] as of this encounter (statuses as of 08/11/2024) Immunizations Name Administration Dates Next Due COVID-19 mRNA, LNP-s, No Pre serve, 2-Dose Series ([employer]) 03/30/2022,06/19/2021,11/11/2020,10/21 COVID-19, MRNA-LNP, 24-25, P R, 30MCG/0.3ML, IM, 12YRS AND ABOVE ([employer]) 05/25/2024 COVID-19, MRNA-LNP, PF, 30 M CG/0.3 mL, 12 YRS AND ABOVE, IM (siOPTICAirnatAceris [employer]D [employer]pection) 11/25/2023 Covid-19, Mrna, Lnp-s, Pf, B ivalent, 30 Mcg, IM, 12 yrs and above ([employer]) 06/15/2022 H1N1 2008 Influenza, IM 10/27/2009 Pneumococcal Conjugate Vacci ne, 20-valent ([id number]) 06/07/2022 Pneumococcal Polysaccharide PPV23 (Pneumovax) 10/22/2006 Season [...] [phone] Shalom Lieberman MD [address] [address] Health Maintenance Due Date Last Done Comments Adult Wellness Visit 03/08/2024 03/08/2023, 03/07/2022, 02/21/2021 Depression Screening 03/08/2024 03/08/2023 GFR 07/01/2024 12/31/2023, 09/16, 12/17/2022, Additional history exists COVID-19 Vaccine ( season) 2024 05/25/2024, 11/25/2023, 06/20/2023, Additional history exists CKD HGB USE SMARTSET 58317 09/25/202409/25, 06/27/2022, 12/29/2021, Additional history exists CKD PHOS USE SMARTSET 97904 09/25/202409/16, 06/27/2022, 03/07/2022 Albumin/Creatinine Ratio 12/30/2024 12/31/2023, [...] Procedure Name Priority Date/Time Associated Diagnosis Comments CT CHEST W CONTRAST Routine 08/09/2024 documented in this encounter Results * CT CHEST W CONTRAST (08/09/2024) Anatomical Region Laterality Modality Chest, Body, Cardio Other 08/09/2024 us Samer Mikey Zarate MD RAD CT Final Resu lt documented in this encounter Care Teams House Servant Relationship Specialty Start Date End Date Noelle Duron MD [address] [place] [address] PCP - General Internal Medicine 03/27/24 documented as of this encounter
--- OUTSIDE RECORDS SUMMARY | 2024-08-24 02:44 | External Medical Summary | Summary of Care ---
Author Name Unknown Organization [facility] Address [address] [place] [address] Phone [phone] Care Team Providers Care Sorter Pricer Name Role Phone Noelle Duron MD Primary Care Provider [phone] Reason for Visit * Reason Onset Date Comments Advice 08/18/2024 Encounter Details Date Type Department Care Team (Late st Contact Info) Description 08/18/2024 Telephone [facility] [address] [place] [phone] Noelle Duron MD [address] [place], [place] [phone] Advice Allergies No known active allergiesdocumented as [...] mRNA, LNP-s, No Pre serve, 2-Dose Series ([employer]) 03/30/2022,06/19/2021,11/11/2020,10/21 COVID-19, MRNA-LNP, 24-25, P R, 30MCG/0.3ML, IM, 12YRS AND ABOVE ([employer]) 05/25/2024 COVID-19, MRNA-LNP, PF, 30 M CG/0.3 mL, 12 YRS AND ABOVE, IM (Ushi) 11/25/2023 Covid-19, Mrna, Lnp-s, Pf, B ivalent, 30 Mcg, IM, 12 yrs and above ([employer]) 06/15/2022 H1N1 2008 Influenza, IM 10/27/2009 Pneumococcal Conjugate Vacci ne, 20-valent ([id number]) 06/07/2022 Pneumococcal Polysaccharide PPV23 (Pneumovax) 10/22/2006 Season [...] encounter Miscellaneous Notes * Telephone Encounter - Delilah Man LPN [...] to patient: spouse Phone/Fax to return call: [phone] Reason for call(brief): Pt spouse requests to [...] Office Visit [facility] [address] [phone] Noelle Duron MD [address] [address] 09/28/2024 1:00 PM EST Office Visit [facility] [address] [phone] Shalom Lieberman MD [address] [address] Health Maintenance Due Date Last Done Comments Adult Wellness Visit 03/08/2024 03/08/2023, 03/07/2022, 02/21/2021 Depression Screening 03/08/2024 03/08/2023 GFR 07/01/2024 12/31/2023, 09/16, 12/17/2022, Additional history exists COVID-19 Vaccine ( season) 2024 05/25/2024, 11/25/2023, 06/20/2023, Additional history exists CKD HGB USE SMARTSET 68138 09/25/202409/25, 06/27/2022, 12/29/2021, Additional history exists CKD PHOS USE SMARTSET 82507 09/25/202409/16, 06/27/2022, 03/07/2022 Albumin/Creatinine Ratio 12/30/2024 12/31/2023, [...] filedocumented as of this encounter Care Teams Sorter Pricer Relationship Specialty Start Date End Date Noelle Duron MD [address] [place] [address] PCP - General Internal Medicine 03/27/24 documented as of this encounter
[2024-08-24 07:22] LABS: Hematocrit (blood only) 31.7 % (42.0-52.0); Hemoglobin 10.7 g/dl (14.0-18.0); Mean Corpuscular Hemoglobin 32.3 pg (25.0-34.0); Mean Corpuscular Hgb Conc 33.8 g/dL (32.0-36.0); Mean Corpuscular Volume 95.8 fL (80.0-100.0); Mean Platelet Volume 11.8 fL (9.4-12.4); Platelet Count 125 K/uL (130-400); RDW Coefficient of Variation 13.8 % (11.5-14.5); RDW Standard Deviation 48.3 fL (36.4-46.3); Red Blood Count 3.31 M/uL (4.70-6.10); White Blood Count 9.05 K/ul (4.8-10.8)
[2024-08-24 07:50] LABS: Albumin Globulin Ratio 1.7 (0.9-2); Albumin Level 3.2 gm/dl (3.4-5.0); BUN Creatinine Ratio 15.3 (10-20); Bilirubin,Total 0.5 mg/dl (0.2-1.0); Calcium 8.9 mg/dl (8.6-10.3); Creatinine Clr Calc Pharmacy 26.8 ml/min; Globulin 1.9 gm/dl (2.5-4.0); Potassium 3.9 mmol/L (3.5-5.1); Total Protein 5.1 gm/dl (6.0-8.3)
--- NOTE | 2024-08-24 16:14 | Hospitalist Progress Note ---
Date of Service August 24, 2024 Assessment & Plan (1) Abdominal pain: (2) Depression, unspecified: (3) Anxiety: (4) Hyperthyroidism: (5) Back pain of lumbar region with sciatica: (6) CAD (coronary atherosclerotic disease): (7) Chronic kidney disease, stage III (moderate): (8) Panhypopituitarism: (9) ACTH deficiency: (10) BPH (benign prostatic hyperplasia): Plan Mr. 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 Patient is going to require mcc placement as family is unable to support patient at this time with his progressive memory impairment and behaviors. Bedside conversation with and patient held today. expressed her concerns and her exhaustion about the care for patient, as well as reflected similar sentiments from son. Patient was reported "anger" with the reports from and stated that he feels that "we" should be more concerned about her "mind slipping." He states he will "just live alone if everyone is so afraid." Opened conversation to ask why he may think his family feels this way, his only response was "I don't know but I am just disappointed in them!" #abdominal pain *resolved Miralax daily Ambulation as tolerated bentyl TID increased to 20mg QID Trial of Cymbalta 30mg, continue Abd duplex added given elevated lactate -patient unable to tolerate, lactate resolved #Mood disorder recently in psych unit, no active SI/HI continue sertraline 200mg continue trazodone 150mg Continue Quetipine 25mg qhs #Chronic Back pain #Lumbar Stenosis history of KHUSHBOO 09/2023, 07/2021 trial to cymbalta, seemingly helpful #HTN #Obstructive CAD s/p stent 06/2024 #Recent STEMI, inferolateral June 2024 late presentation inferolateral STEMI. Catheterization with multivessel coronary artery disease, culprit proximal RCA stenosis status post PCI of the RCA with 3 overlapping drug-eluting stents Status post PCI of the mid left circumflex with 1 drug-eluting stent. Residual intermediate stenosis of the mid LAD noted on repeat cardiac catheterization 07/10/2024 as well as branch vessel disease as noted above. Continue ASA and Brillinta Continue Metoprolol Continue Statin Continue bumex daily Continue imdur 30mg continue lisinopril 20mg daily #CKD stage G3a/A2 (moderate impairment). Baseline Cr 1.8-2.0 w/ EGFR 45 cc/min. Urine sediment is benign. Renal US revealed a multicystic R kidney, no solid renal mass * 06/02 Urology evaluation: large R multicystic kidney. Urology indicated that these are simple cysts and did not recommend nephrectomy. Urology advised reevaluation in 1 year, patient declined * Continue KCl 20 mEq daily for correction of hypokalemia #Chronic anemia Stable, at baseline #chronic steroid therapy 2/2 adrenal insufficiency #panhypopituitarism #pituitary tumor follows Dr. Reece Growth hormone: no on growth hormone treatment as of yet Prolactin: Prolactin initially marginally elevated, most recently 67 ng/mL in 2018; since that time has been decreasing, most recent 25 ng/mL in December 2022. Testosterone: Started testosterone replacement in late 2018 Thyroid: continue on methimazole 2.5 mg daily Cortisol: Settled on 20/10 mg with the morning dose at 5:30 a.m.-6:00 am or ? TSH 0.890 DVT Ppx: SQ heparin Code status: FULL PCP: Domi Dispo: admitted to med/surg Admission and Anticipated Discharge Date Admission Date: August 22, 2024 Subjective patient denies any active concerns this am reports resolution of symptoms Patient denies any loss of capacity, reports being in sounds mind and flips that his " is the one [you] should be concerned about Physical Exam Constitutional: WD/WN, vitals as above Respiratory: normal respiratory effort, lungs clear to auscultation Cardiovascular: RRR, no murmur, no edema Gastrointestinal (Abdomen): normal bowel sounds, soft, nontender, no hepatosplenomegaly Results & Data Results & Data Vital Signs (Past 12 Hours) Vital Signs Temp Pulse Resp BP Pulse Ox O2 Del Method 08/24/24 15:56 36.7 C 66 16 116/57 L 95 Room Air 08/24/24 07:49 36.5 C 69 16 110/62 97 Room Air Laboratory Results Short CBC 08/24/24 Range/Units 06:28 WBC 9.05 (4.8-10.8) K/ul Hgb 10.7 L (14.0-18.0) g/dl Hct 31.7 L (42.0-52.0) % Plt Count 125 L (130-400) K/uL BMP 08/24/24 06:28 Sodium 142 Potassium 3.9 Chloride 108 H Carbon Dioxide 29 BUN 31 H Creatinine 2.02 H Glucose 88 Calcium 8.9 Liver Function 08/24/24 Range/Units 06:28 Total Bilirubin 0.5 (0.2-1.0) mg/dl AST 17 (13-39) U/L ALT 14 (7-52) U/L Alkaline Phosphatase 65 (34-104) U/L Albumin 3.2 L (3.4-5.0) gm/dl Medications Administered Home Medications Medication Instructions Recorded Confirmed Last Taken ascorbic acid (vitamin C) 500 mg 500 mg PO DAILY 08/07/24 08/22/24 Unknown tablet aspirin 81 mg tablet,delayed 81 mg PO DAILY 08/07/24 08/22/24 Unknown release atorvastatin 40 mg tablet 40 mg PO DAILY 08/07/24 08/22/24 Unknown bumetanide 1 mg tablet 1 mg PO DAILY 08/07/24 08/22/24 Unknown dicyclomine 20 mg tablet 20 mg PO TID 08/07/24 08/22/24 Unknown dutasteride 0.5 mg-tamsulosin ER 1 cap PO HS 08/07/24 08/22/24 Unknown 0.4 mg capsule ext.release 24hr mphas hydrocortisone 5 mg tablet 10 mg PO HS 08/07/24 08/22/24 Unknown hydrocortisone 5 mg tablet 20 mg PO DAILY 08/07/24 08/22/24 Unknown isosorbide mononitrate 30 mg 30 mg PO DAILY 08/07/24 08/22/24 Unknown tablet,extended release 24 hr lisinopril 20 mg tablet 20 mg PO DAILY 08/07/24 08/22/24 Unknown magnesium 250 mg tablet 250 mg PO DAILY 08/07/24 08/22/24 Unknown methimazole 5 mg tablet 2.5 mg PO DAILY 08/07/24 08/22/24 Unknown metoprolol succinate 50 mg 50 mg PO BID 08/07/24 08/22/24 Unknown tablet,extended release 24 hr multivitamin 1 tab PO DAILY 08/07/24 08/22/24 Unknown nitroglycerin 0.4 mg sublingual 0.4 mg sublingual UD 08/07/24 08/22/24 Unknown tablet omeprazole 20 mg capsule,delayed 20 mg PO BID 08/07/24 08/22/24 Unknown release potassium chloride 20 mEq 20 meq PO DAILY 08/07/24 08/22/24 Unknown tablet,extended release sertraline 100 mg tablet 200 mg PO DAILY 08/07/24 08/22/24 Unknown ticagrelor 90 mg tablet (Brilinta) 90 mg PO BID 08/07/24 08/22/24 Unknown trazodone 150 mg tablet 150 mg PO HS 08/07/24 08/22/24 Unknown Tums 1 tab PO DIRECTED PRN Other 08/22/24 08/22/24 Unknown calcium 600 mg (as carbonate)-vit 1 tab PO DAILY 08/22/24 08/22/24 Unknown D3 20 mcg (800 unit) chewable tablet (Caltrate plus D) doxazosin 4 mg tablet 8 mg PO HS 08/22/24 08/22/24 Unknown quetiapine 25 mg tablet (Seroquel) 25 mg PO HS 08/22/24 08/22/24 Unknown testosterone 1 pump topical DAILY 08/22/24 08/22/24 Unknown Active Medications Generic Name Dose Route Start Last Admin Trade Name Freq PRN Reason Stop Dose Admin Acetaminophen 1,000 mg 08/22/24 17:10 08/23/24 15:42 Acetaminophen 500 Mg Tab PO 09/21/24 17:14 1,000 mg Q8H PRN Administration pain or fever Ascorbic Acid 500 mg 08/23/24 09:00 08/24/24 07:52 Ascorbic Acid 500 Mg Tab PO 09/22/24 08:59 500 mg DAILY TOD Administration Aspirin 81 mg 08/23/24 09:00 08/24/24 07:54 Aspirin 81 Mg Ectab PO 09/22/24 08:59 81 mg DAILY TOD Administration Atorvastatin Calcium 40 mg 08/23/24 09:00 08/24/24 07:56 Atorvastatin 40 Mg Tab PO 09/22/24 08:59 40 mg DAILY TOD Administration Calcium/Vitamin D 1 tab 08/23/24 09:00 08/24/24 07:55 Calcium 600mg + Vit D 400 Iu Tab PO 09/22/24 08:59 1 tab DAILY TOD Administration Dicyclomine HCl 20 mg 08/22/24 21:00 08/24/24 13:00 Dicyclomine Hcl 20 Mg Tab PO 09/21/24 20:59 20 mg QID TOD Administration Doxazosin Mesylate 8 mg 08/22/24 21:00 08/24/24 07:53 Doxazosin Mesylate 4 Mg Tab PO 09/21/24 20:59 8 mg HS TOD Administration Duloxetine HCl 30 mg 08/23/24 09:00 08/24/24 07:54 Duloxetine Hcl 30 Mg Cap PO 09/22/24 08:59 30 mg QAM TOD Administration Finasteride 5 mg 08/22/24 21:00 08/23/24 20:17 Finasteride 5 Mg Tab PO 09/21/24 20:59 5 mg HS TOD Administration Gabapentin 100 mg 08/23/24 22:15 08/24/24 07:52 Gabapentin 100 Mg Cap PO 09/22/24 22:14 100 mg BID TOD Administration Heparin Sodium (Porcine) 5,000 units 08/23/24 09:00 08/24/24 07:56 Heparin Sod 5,000 Unit/0.5 Ml Vial SQ 09/22/24 08:59 Not Given Q12 TOD Hydrocortisone 20 mg 08/23/24 09:00 08/24/24 07:55 Hydrocortisone 10 Mg Tab PO 09/22/24 08:59 20 mg DAILY TOD Administration Isosorbide Mononitrate 30 mg 08/23/24 09:00 08/24/24 07:56 Isosorbide [place] Extended Rel 30 Mg Tabcr PO 09/22/24 08:59 30 mg DAILY TOD Administration Lidocaine 1 patch 08/23/24 09:00 08/24/24 07:56 Lidocaine 5% 1 Patch TD 09/22/24 08:59 1 patch QAM TOD Administration Lisinopril 20 mg 08/23/24 09:00 08/23/24 08:49 Lisinopril 20 Mg Tab PO 09/22/24 08:59 20 mg DAILY TOD Administration Magnesium Oxide 400 mg 08/23/24 09:00 08/24/24 07:55 Magnesium Oxide 400 Mg Tab PO 09/22/24 08:59 400 mg DAILY TOD Administration Melatonin 3 mg 08/22/24 19:15 08/22/24 20:49 Melatonin 3 Mg Tab PO 09/21/24 19:14 3 mg HS PRN Administration Insomnia Methimazole 2.5 mg 08/23/24 09:00 08/24/24 07:52 Methimazole 5 Mg Tablet PO 09/22/24 08:59 2.5 mg DAILY TOD Administration Metoprolol Succinate 50 mg 08/22/24 21:00 08/24/24 07:54 Metoprolol Succ 50mg Ext Rel Tab PO 09/21/24 20:59 50 mg BID TOD Administration Miscellaneous 1 each 08/23/24 00:00 08/24/24 07:51 Testosterone~Order Awaiting Action N/A 09/22/24 00:00 Not Given QS TOD Miscellaneous 1 each 08/22/24 21:00 08/23/24 20:19 Remove Lidoderm Patch N/A 09/21/24 20:59 1 each DAILY@2100 TOD Administration Multivitamins 1 tab 08/23/24 09:00 08/24/24 07:54 Multivitamin Tab PO 09/22/24 08:59 1 tab DAILY TOD Administration Pantoprazole Sodium 40 mg 08/22/24 21:00 08/24/24 07:55 Pantoprazole 40 Mg Tab PO 09/21/24 20:59 40 mg BID TOD Administration Polyethylene Glycol 17 gm 08/23/24 09:00 08/24/24 07:57 Polyethylene (Miralax) 17 Gm Pack PO 09/22/24 08:59 Not Given DAILY TOD Potassium Chloride 20 meq 08/23/24 09:00 08/24/24 09:02 Potassium Chloride Crtab 20 Meq Tabcr PO 09/22/24 08:59 20 meq DAILY TOD Administration Quetiapine Fumarate 25 mg 08/22/24 21:00 08/23/24 20:17 Quetiapine Fumarate 25 Mg Tablet PO 09/21/24 20:59 25 mg HS TOD Administration Sertraline HCl 200 mg 08/23/24 09:00 08/24/24 07:53 Sertraline Hcl 100 Mg Tablet PO 09/22/24 08:59 200 mg DAILY TOD Administration Tamsulosin HCl 0.4 mg 08/22/24 21:00 08/23/24 20:18 Tamsulosin Hcl 0.4 Mg Cap PO 09/21/24 20:59 0.4 mg HS TOD Administration Ticagrelor 90 mg 08/22/24 21:00 08/24/24 07:54 Ticagrelor 90 Mg Tab PO 09/21/24 20:59 90 mg BID TOD Administration Trazodone HCl 150 mg 08/22/24 21:00 08/23/24 20:15 Trazodone Hcl 50 Mg Tab PO 09/21/24 20:59 150 mg HS TOD Administration Trolamine Salicylate 1 appln 08/22/24 17:10 08/23/24 18:00 Trolamine Salicylate 10% Crm 255 Appln/85 Gm Tube EXT 09/21/24 17:09 1 appln TID PRN Administration Pain (1) Abdominal pain Abdominal location: periumbilical Qualified Code(s): R10.33 - Periumbilical pain (6) CAD (coronary atherosclerotic disease) Associated angina: unspecified whether angina present Coronary Disease- Associated Artery/Lesion type: unspecified vessel or lesion type [place] vs. transplanted heart: [place] heart Qualified Code(s): I25.10 - Atherosclerotic heart disease of [place] coronary artery without angina pectoris (7) Chronic kidney disease, stage III (moderate) Chronic kidney disease stage 3 subtype: unspecified whether 3a or 3b Qualified Code(s): N18.30 - Chronic kidney disease, stage 3 unspecified
[2024-08-24] MEDS: HYDROCORTISONE 10 MG TAB PO SCH (17:59)
[2024-08-24] MEDS: traMADol HCL 50 MG TABLET PO STA (20:23)
--- NOTE | 2024-08-24 22:11 | Ultrasound Report ---
EXAM: US duplex mesenteric CLINICAL HISTORY: abd pain, elevated lactate pt has dementia, panic attacks. after about 2 minutes into the exam pt refused any more imaging, stood up and sat in his wheelchair. pt stated he would not be able to sit any longer or he would have a panic attack non diagnostic exam due to patient refusal. Aorta only imaged TECHNIQUE: Real time complete abdominal aorta ultrasound scan was performed. COMPARISON: None. FINDINGS: Limited study. The patient states having panic attacks. Nondiagnostic exam due to patient refusal. Aorta only imaged There is no dilatation of the abdominal aorta. There is no tortuosity or thrombus of the abdominal aorta seen. The proximal aorta peak systolic velocity is 109.4 cm/s and the proximal aorta end-diastolic velocities 26.1 cm/s IMPRESSION: 1. Limited duplex mesenteric study. Only the aorta was imaged. 2. The unremarkable appearance of the aorta. 3. advised CT if clinically desired for further evaluation. Electronically signed by Anabella Smith 08-24-2024 10:11 PM
[2024-08-25 09:31] LABS: BUN Creatinine Ratio 18.3 (10-20); Calcium 9.5 mg/dl (8.6-10.3); Creatinine Clr Calc Pharmacy 29.1 ml/min; Potassium 4.6 mmol/L (3.5-5.1)
--- NOTE | 2024-08-25 12:08 | Psychiatric Progress Note ---
Date of Service August 25, 2024 Impression / Recommendations Impression Diagnostically unclear. Reported subjective restlessness could be a component of anxiety or dementia or medication side effects (akathisia) or aspect of opioid withdrawal if he has been overusing his outpatient scripts. Notably no evidence of significant restlessness on exam today. Family collateral notable for concern for his dependence on opioids. A: Asked to reassess regarding his dispositional decision making capacity as he wants to return home and family feels unable to meet his needs. MOCA done with score of 20/30 consistent with mild neurocognitive impairment. Discussion with his RN notable for no significant memory deficits or challenging attending to his basic needs, no unsafe behaviors observed. Per review of collateral information from family it seems his pain medication seeking behaviors, anxiety and temper have been the biggest recent challenges. At this time there are no clear highly unsafe or concerning behaviors related to his mild cognitive impairment (i.e. no wandering, toileting issues, falls etc) and his medical/psychiatric conditions seem to have stabilized which seems to be fairly low risk compared with the high burden that would be required to override his wishes and take away his autonomy in forcing him out of his home. Therefore based on review of these factors, MOCA and results of the Aid to Capacity Evaluation (deemed probably capable), I feel he does have dispositional decision making capacity at this time to return home should he desire this. Should significant new safety concerns come to light then this would need to be weighed against his autonomy/desire to return home and mild neurocognitive impairment. Overall, I spent a total of 45 minutes with this case including review of chart records, review of labwork, direct evaluation of the patient at bedside, counseling the patient, discussion of the patient with the nurse and hospitalist provider, discussion with the psychiatric liason during clinical rounds, review of collateral historian information from the family and documentation in the electronic health record. (1) Encounter for assessment of healthcare decision-making capacity: (2) Opioid use disorder: (3) Mild neurocognitive disorder: Plan -Continue psychiatric medications as ordered for now -Encourage outpatient neurology involvement if neurocognitive deficits or advancement of memory issues/behavior changes remains a concern -At this time he is felt to have dispositional decision making capacity Interval History Identifying Information 84 yo man with a history of dementia, anxiety, panic disorder (many years ago), CAD status post stent in June 2024 and multiple other medical conditions, recently admitted to inpatient geriatric psychiatry for 8 days (08/12/2024 - 08/20/2024) now admitted medically for worsening stomach pain and family feeling unable to care for him at home. Psychiatry initially consulted for anxiety and agitation and then asked to assess dispositional decision making capacity. Chief Complaint "Plain and simple I am going home". Subjective Subjective Patient was seen & assessed and interval progress reviewed. Family has expressed concerns about having him at home and feeling unable to care for him due to increased conflict and his recent anxiety and repeated requests to come to the hospital for anxiety and somatic symptoms following his NV in June. Today Ronny is A&Ox4. He denies any anxiety noting that he has read about potential increased anxiety following heart attacks that typically resolves within two months and he feels this has been the case for him as well. He is frustrated by discussions that he might be able to return home noting "It's my home too". He agreed to answer questions associated with the Aid to Capacity Evaluation regarding his desires/risks. He is able to state that his has concerns about him returning home due to his recent anxiety and periods of restlessness but feels he deserves "another chance, I will do my best" and states that if it still doesn't work then "if it doesn't work then I'll agree to go somewhere after talking to my primary doctor, Dr. Landeros". Is able to understand that his family thinks he would do well in a personal senior care but disagrees with this strongly and states "they do but I don't know what their concerns are, I'm never violent". He understands a p ersonal senior care is an option but doesn't want this. Doesn't see any benefits of personal senior care, focused on "I'm not going anywhere else". Feels he is of "perfect sound mind and body" and "I'm capable of going home". 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 MOCA completed by psych liason with score of 20/30 with most prominent deficits in executive functioning and delayed recall. Physical Exam Psychiatric Orientation: alert and oriented x 3 Apperance: appropriately dressed and appropriately groomed Eye Contact: good eye contact Motor Behavior: no abnormal motor movements Speech: normal rate/rhythm/volume of speech Affect: + irritable affect Mood: + irritable mood Thought Process: goal directed thought process Thought Content: reality based without delusions Suicidal Thoughts: denies suicidal thoughts Homicidal Thoughts: denies homicidal thoughts Hallucinations: no auditory hallucinations and no visual hallucinations Insight: + limited insight Judgment: + limited judgement Vital Signs (Past 24 Hours) Last Vital Signs Temp 36.4 C L 08/25/24 07:51 Pulse 61 08/25/24 07:51 Resp 16 08/25/24 07:51 BP 133/66 08/25/24 07:51 Pulse Ox 97 08/25/24 07:51 O2 Del Method Room Air 08/25/24 07:51 Results & Data ([facility]) Laboratory Results Laboratory Results - last 24 hr 08/25/24 08:15 Sodium 142 Potassium 4.6 Chloride 109 H Carbon Dioxide 28 Anion Gap 5 BUN 34 H Creatinine 1.86 H Est Cr Clr Drug Dosing 29.1 eGFR 35.46 BUN/Creatinine Ratio 18.3 Glucose 84 Calcium 9.5 Current Inpatient Medications Current Inpatient Medications: Current Inpatient Medications Acetaminophen (Acetaminophen 500 Mg Tab) 1,000 mg PO Q8H PRN PRN Reason: pain or fever Stop: 09/21/24 17:14 Last Admin: 08/23/24 15:42 Dose: 1,000 mg Ascorbic Acid (Ascorbic Acid 500 Mg Tab) 500 mg PO DAILY [facility] Stop: 09/22/24 08:59 Last Admin: 08/25/24 09:34 Dose: 500 mg Aspirin (Aspirin 81 Mg Ectab) 81 mg PO DAILY TOD Stop: 09/22/24 08:59 Last Admin: 08/25/24 09:34 Dose: 81 mg Atorvastatin Calcium (Atorvastatin 40 Mg Tab) 40 mg PO DAILY [facility] Stop: 09/22/24 08:59 Last Admin: 08/25/24 09:34 Dose: 40 mg Calcium Carbonate (Calcium Carbonate 500 Mg Chewable Tab) 500 mg PO Q4H PRN PRN Reason: DYSPEPSIA Stop: 09/21/24 17:07 Calcium/Vitamin D (Calcium 600mg + Vit D 400 Iu Tab) 1 tab PO DAILY [facility] Stop: 09/22/24 08:59 Last Admin: 08/25/24 09:31 Dose: 1 tab Dicyclomine HCl (Dicyclomine Hcl 20 Mg Tab) 20 mg PO QID [facility] Stop: 09/21/24 20:59 Last Admin: 08/25/24 09:34 Dose: 20 mg Doxazosin Mesylate (Doxazosin Mesylate 4 Mg Tab) 8 mg PO HS TOD Stop: 09/21/24 20:59 Last Admin: 08/24/24 07:53 Dose: 8 mg Duloxetine HCl (Duloxetine Hcl 30 Mg Cap) 30 mg PO QAM OTD Stop: 09/22/24 08:59 Last Admin: 08/25/24 09:34 Dose: 30 mg Finasteride (Finasteride 5 Mg Tab) 5 mg PO HS [facility] Stop: 09/21/24 20:59 Last Admin: 08/24/24 20:14 Dose: 5 mg Gabapentin (Gabapentin 100 Mg Cap) 100 mg PO BID TOD Stop: 09/22/24 22:14 Last Admin: 08/25/24 09:35 Dose: 100 mg Heparin Sodium (Porcine) (Heparin Sod 5,000 Unit/0.5 Ml Vial) 5,000 units SQ Q12 TOD Stop: 09/22/24 08:59 Last Admin: 08/25/24 09:43 Dose: 5,000 units Hydrocortisone (Hydrocortisone 10 Mg Tab) 20 mg PO DAILY TOD Stop: 09/22/24 08:59 Last Admin: 08/25/24 09:39 Dose: 20 mg Hydrocortisone (Hydrocortisone 10 Mg Tab) 10 mg PO DAILY@1700 [facility] Stop: 09/23/24 16:59 Last Admin: 08/24/24 17:59 Dose: 10 mg Isosorbide Mononitrate (Isosorbide [place] Extended Rel 30 Mg Tabcr) 30 mg PO DAILY TOD Stop: 09/22/24 08:59 Last Admin: 08/25/24 09:32 Dose: 30 mg Lidocaine (Lidocaine 5% 1 Patch) 1 patch TD QAM [facility] Stop: 09/22/24 08:59 Last Admin: 08/25/24 09:30 Dose: Not Given Lisinopril (Lisinopril 20 Mg Tab) 20 mg PO DAILY [facility] Stop: 09/22/24 08:59 Last Admin: 08/23/24 08:49 Dose: 20 mg Magnesium Oxide (Magnesium Oxide 400 Mg Tab) 400 mg PO DAILY [facility] Stop: 09/22/24 08:59 Last Admin: 08/25/24 09:34 Dose: 400 mg Melatonin (Melatonin 3 Mg Tab) 3 mg PO HS PRN PRN Reason: Insomnia Stop: 09/21/24 19:14 Last Admin: 08/22/24 20:49 Dose: 3 mg Methimazole (Methimazole 5 Mg Tablet) 2.5 mg PO DAILY TOD Stop: 09/22/24 08:59 Last Admin: 08/24/24 07:52 Dose: 2.5 mg Metoprolol Succinate (Metoprolol Succ 50mg Ext Rel Tab) 50 mg PO BID [facility] Stop: 09/21/24 20:59 Last Admin: 08/25/24 09:33 Dose: 50 mg Miscellaneous (Testosterone~Order Awaiting Action) 1 each N/A QS [facility] Stop: 09/22/24 00:00 Last Admin: 08/25/24 08:47 Dose: Not Given Miscellaneous (Remove Lidoderm Patch) 1 each N/A DAILY@2100 [facility] Stop: 09/21/24 20:59 Last Admin: 08/24/24 20:16 Dose: 1 each Multivitamins (Multivitamin Tab) 1 tab PO DAILY [facility] Stop: 09/22/24 08:59 Last Admin: 08/25/24 09:32 Dose: 1 tab Olanzapine (Olanzapine 10 Mg/2.1 Ml Sdv) 5 mg IM DAILY PRN PRN Reason: Agitation Stop: 09/21/24 19:14 Ondansetron HCl (Ondansetron Inj 2 Mg/Ml 2 Ml Vial) 4 mg IV Q6H PRN PRN Reason: Nausea Stop: 09/21/24 19:14 Pantoprazole Sodium (Pantoprazole 40 Mg Tab) 40 mg PO BID [facility] Stop: 09/21/24 20:59 Last Admin: 08/25/24 09:35 Dose: 40 mg Polyethylene Glycol (Polyethylene (Miralax) 17 Gm Pack) 17 gm PO DAILY [facility] Stop: 09/22/24 08:59 Last Admin: 08/25/24 09:32 Dose: Not Given Potassium Chloride (Potassium Chloride Crtab 20 Meq Tabcr) 20 meq PO DAILY [facility] Stop: 09/22/24 08:59 Last Admin: 08/25/24 09:43 Dose: 20 meq Quetiapine Fumarate (Quetiapine Fumarate 25 Mg Tablet) 25 mg PO HS TOD Stop: 09/21/24 20:59 Last Admin: 08/24/24 20:16 Dose: 25 mg Sertraline HCl (Sertraline Hcl 100 Mg Tablet) 200 mg PO DAILY TOD Stop: 09/22/24 08:59 Last Admin: 08/25/24 09:33 Dose: 200 mg Tamsulosin HCl (Tamsulosin Hcl 0.4 Mg Cap) 0.4 mg PO HS TOD Stop: 09/21/24 20:59 Last Admin: 08/24/24 20:15 Dose: 0.4 mg Ticagrelor (Ticagrelor 90 Mg Tab) 90 mg PO BID TOD Stop: 09/21/24 20:59 Last Admin: 08/25/24 09:34 Dose: 90 mg Trazodone HCl (Trazodone Hcl 50 Mg Tab) 150 mg PO HS TOD Stop: 09/21/24 20:59 Last Admin: 08/24/24 20:15 Dose: 150 mg Trolamine Salicylate (Trolamine Salicylate 10% Crm 255 Appln/85 Gm Tube) 1 appln EXT TID PRN PRN Reason: Pain Stop: 09/21/24 17:09 Last Admin: 08/23/24 18:00 Dose: 1 appln
[2024-08-25 15:30] VITALS: TEMP 97.7; O2SAT 98
--- NOTE | 2024-08-25 16:14 | Discharge Summary ---
Discharge Summary Date of Service August 25, 2024 Principal Dx & Hospital Course #1 = Principal Diagnosis (1) Abdominal pain: (2) Depression, unspecified: (3) Anxiety: (4) Hyperthyroidism: (5) Back pain of lumbar region with sciatica: (6) CAD (coronary atherosclerotic disease): (7) Chronic kidney disease, stage III (moderate): (8) Panhypopituitarism: (9) ACTH deficiency: (10) BPH (benign prostatic hyperplasia): Plan Mr. 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 Patient is going to require lobsterman placement as family is unable to support patient at this time with his progressive memory impairment and behaviors. Bedside conversation with and patient held today. expressed her concerns and her exhaustion about the care for patient, as well as reflected similar sentiments from son. Patient was reported "anger" with the reports from and stated that he feels that "we" should be more concerned about her "mind slipping." He states he will "just live alone if everyone is so afraid." Opened conversation to ask why he may think his family feels this way, his only response was "I don't know but I am just disappointed in them!" Spoke with Psych and reviewed notes : " MOCA and results of the Aid to Capacity Evaluation (deemed probably capable), I feel he does have dispositional decision making capacity at this time to return home should he desire this. Should significant new safety concerns come to light then this would need to be weighed against his autonomy/desire to return home and mild neurocognitive impairment. " On day of discharge, patient eager to go home and without acute concerns. Care plan discussed with who verbalized understanding that if new safety concerns come to light she should seek assistance. #abdominal pain *resolved Miralax daily Ambulation as tolerated bentyl TID increased to 20mg QID Trial of Cymbalta 30mg, continue Abd duplex added given elevated lactate -patient unable to tolerate, lactate resolved #Mood disorder recently in psych unit, no active SI/HI continue sertraline 200mg continue trazodone 150mg Continue Quetipine 25mg qhs #Chronic Back pain #Lumbar Stenosis history of KHUSHBOO 09/2023, 07/2021 trial to cymbalta, seemingly helpful #HTN #Obstructive CAD s/p stent 06/2024 #Recent STEMI, inferolateral June 2024 late presentation inferolateral STEMI. Catheterization with multivessel coronary artery disease, culprit proximal RCA stenosis status post PCI of the RCA with 3 overlapping drug-eluting stents Status post PCI of the mid left circumflex with 1 drug-eluting stent. Residual intermediate stenosis of the mid LAD noted on repeat cardiac catheterization 07/10/2024 as well as branch vessel disease as noted above. Continue ASA and Brillinta Continue Metoprolol Continue Statin hold bumex daily and lisinopril Continue imdur 30mg #CKD stage G3a/A2 (moderate impairment). Baseline Cr 1.8-2.0 w/ EGFR 45 cc/min. Urine sediment is benign. Renal US revealed a multicystic R kidney, no solid renal mass * 06/02 Urology evaluation: large R multicystic kidney. Urology indicated that these are simple cysts and did not recommend nephrectomy. Urology advised reevaluation in 1 year, patient declined * Continue KCl 20 mEq daily for correction of hypokalemia #Chronic anemia Stable, at baseline #chronic steroid therapy 2/2 adrenal insufficiency #panhypopituitarism #pituitary tumor follows Dr. Reece Growth hormone: no on growth hormone treatment as of yet Prolactin: Prolactin initially marginally elevated, most recently 67 ng/mL in 2019; since that time has been decreasing, most recent 25 ng/mL in December 2022. Testosterone: Started testosterone replacement in late 2018 Thyroid: continue on methimazole 2.5 mg daily Cortisol: Settled on 20/10 mg with the morning dose at 5:30 a.m.-6:00 am or ? TSH 0.890 Notes For Next Care Provider Medication Changes From Visit -Cymbalta 60mg started daily -Resumed Gabapentin two times a day -Hold bumex at this time and potassium supplement - hold lisinopril as well. Admission HPI Per Admitting Provider Mr. 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 Patient with multiple admissions with over 8 visits to hospital in last month. Patient recently discharge 08/11 to an inpatient psychiatric unit. Presents to the ED today with ongoing abdominal pain despite Bentyl use at home, which only alleviates pain slightly. Describes as constant aching. Decreased appetite and has only been drinking broth at home. No nausea or vomiting. Bowels are moving without issue. No CP, SOB. Admission Exam Per Admitting Provider General: Anxious appearing, perseverating Head: Normocephalic and atraumatic Eyes: Normal inspection, extraocular muscles intact Ear, nose, throat: Normal external exam Neck: Normal range of motion Respiratory: lungs clear to auscultation bilaterally Cardiovascular: Regular rate/rhythm, no murmur GI: Soft, minimally tender Extremities: nontender, moves all extremities Neuro: The patient awake and alert, appropriately conversive, no focal deficits, symmetric faces Skin: Warm, dry, and intact Discharge Exam Constitutional WD/WN, vitals as above Respiratory normal respiratory effort, lungs clear to auscultation Cardiovascular RRR, no murmur, no edema Gastrointestinal (Abdomen) normal bowel sounds, soft, nontender, no hepatosplenomegaly Updated Medication List Medication Instructions Recorded Confirmed Type ascorbic acid (vitamin C) 500 mg 500 mg PO DAILY 08/07/24 08/22/24 History tablet aspirin 81 mg tablet,delayed 81 mg PO DAILY 08/07/24 08/22/24 History release atorvastatin 40 mg tablet 40 mg PO DAILY 08/07/24 08/22/24 History bumetanide 1 mg tablet 1 mg PO DAILY 08/07/24 08/22/24 History dicyclomine 20 mg tablet 20 mg PO TID 08/07/24 08/22/24 History dutasteride 0.5 mg-tamsulosin ER 1 cap PO HS 08/07/24 08/22/24 History 0.4 mg capsule ext.release 24hr mphas hydrocortisone 5 mg tablet 10 mg PO HS 08/07/24 08/22/24 History hydrocortisone 5 mg tablet 20 mg PO DAILY 08/07/24 08/22/24 History isosorbide mononitrate 30 mg 30 mg PO DAILY 08/07/24 08/22/24 History tablet,extended release 24 hr magnesium 250 mg tablet 250 mg PO DAILY 08/07/24 08/22/24 History methimazole 5 mg tablet 2.5 mg PO DAILY 08/07/24 08/22/24 History metoprolol succinate 50 mg 50 mg PO BID 08/07/24 08/22/24 History tablet,extended release 24 hr multivitamin 1 tab PO DAILY 08/07/24 08/22/24 History nitroglycerin 0.4 mg sublingual 0.4 mg sublingual UD 08/07/24 08/22/24 History tablet omeprazole 20 mg capsule,delayed 20 mg PO BID 08/07/24 08/22/24 History release potassium chloride 20 mEq 20 meq PO DAILY 08/07/24 08/22/24 History tablet,extended release sertraline 100 mg tablet 200 mg PO DAILY 08/07/24 08/22/24 History ticagrelor 90 mg tablet (Brilinta) 90 mg PO BID 08/07/24 08/22/24 History trazodone 150 mg tablet 150 mg PO HS 08/07/24 08/22/24 History Tums 1 tab PO DIRECTED PRN Other 08/22/24 08/22/24 History calcium 600 mg (as carbonate)-vit 1 tab PO DAILY 08/22/24 08/22/24 History D3 20 mcg (800 unit) chewable tablet (Caltrate plus D) doxazosin 4 mg tablet 8 mg PO HS 08/22/24 08/22/24 History quetiapine 25 mg tablet (Seroquel) 25 mg PO HS 08/22/24 08/22/24 History testosterone 1 pump topical DAILY 08/22/24 08/22/24 History duloxetine 30 mg capsule,delayed 30 mg PO QAM 30 days #30 caps 08/25/24 Rx release gabapentin 100 mg capsule 100 mg PO BID 30 days #60 caps 08/25/24 Rx Hospital Stay Data Consultations 08/22/24 16:42 ED Decision to Admit Stat 08/22/24 17:39 Consult Psychiatry Routine Diagnostic Imagining Performed 08/22/24 17:21 US duplex mesenteric Routine Pending Results Patient Have Any Pending Studies at Discharge: No Discharge Instructions Given to Patient (Per Discharging Provider) You were admitted for abdominal pain which resolved. You did have multiple medication adjustments made for mood: -Cymbalta 60mg started daily -Resumed Gabapentin two times a day Please hold your bumex at this time and your potassium supplement until follow up with PCP Please hold your lisinopril as well. Total Time Total Time Spent Total Time Spent (In Minutes): 35
[2024-08-25 16:32] VITALS: BP 95/50; PULSE 78
== END 2024-08-25 16:58 | disposition home or self-care (01) | DRG 392 ==
LOC: ED 10:50 → 3N 16:31

== ENCOUNTER 2024-10-15 07:46 | Observation (INO) ==
[2024-10-15] MEDS: LORazepam 2 MG/1 ML VIAL IV STA (08:12)
--- NOTE | 2024-10-15 08:12 | Emergency Department Note ---
Impression & Plan Headache, Anxiety, HTN (hypertension) ED Provider Note NAME: PUJA GROSSMAN AGE: 84 SEX: M : 1940 ARRIVES VIA: Walk-In INFORMANT: Patient ED PROVIDER(S): Jef Del Rio DO CHIEF COMPLAINT: Not feeling well HPI: Patient is an 84-year-old male with a past medical history of anxiety, depression no insufficiency was CAD, CKD who presents to the ER for anxiety. He notes he woke up with a headache and has felt very anxious since. is present at bedside and provides additional history. She notes that he has not been confused. He woke up and was very anxious and consequently she brought him here immediately. He has had multiple episodes like this before in the past. She notes that it is when he gets very worked up. He had several episodes of this over the past several days. Has been titrating down on his gabapentin and today he is off of it. He supposed to start new medication but he has not started any medications today. He did not take his blood pressure medications. He denies any chest pain, shortness of breath, nausea vomiting or diarrhea. No dysuria, urgency, or frequency. No weakness or numbness in arms or legs. ADDITIONAL HISTORY OBTAINED: Per HPI Chronic Medical/Social Conditions Affecting Care: Per HPI PAST MEDICAL HISTORY:See Below PAST SURGICAL HISTORY:See Below FAMILY HISTORY:See Below SOCIAL HISTORY:See Below HOME MEDICATIONS:See Below ALLERGIES:See Below VITALS:See Below PHYSICAL EXAMINATION: GENERAL: Sitting up in bed, alert, well appearing, well nourished, no distress, non-toxic EYE EXAM: normal conjunctiva. PERRL and EOM's intact. OROPHARYNX: no exudate, no erythema, lips, buccal mucosa, and tongue normal and mucous membranes are moist NECK: supple, no nuchal rigidity, no adenopathy, non-tender LUNGS: Clear to auscultation. Normal chest wall mechanics HEART: no murmurs, S1 normal and S2 normal ABDOMEN: abdomen soft, non-tender, normo-active bowel sounds, no masses, no rebound or guarding. BACK: Back is symmetrical on inspection and there is no deformity, no midline tenderness, no CVA tenderness. SKIN: no rashes and no bruising UPPER EXTREMITIES: upper extremities are grossly normal. LOWER EXTREMITIES: No pitting edema. NEURO EXAM: Normal sensorium, cranial nerves II-XII intact, normal speech, no weakness of arms, no weakness of legs. No drift. Finger to nose intact. Gross sensation intact. MEDICAL DECISION MAKING: Patient is a an 84-year-old male who presents ER for the above-stated complaint. IV was established and blood work was obtained. Labs show no significant leukocytosis or anemia. Platelets at 125. BMP along LFTs bilirubin was unremarkable. Troponin at 19.9. Lipase normal. CT of the head and chest x-ray is unremarkable. Patient was given Ativan and his symptoms resolved as well as his oral hydrocortisone and mononitrate and his blood pressure trended down without other intervention to the 180s. CT head was negative. He was given Tylenol for the headache. He became anxious again started stuttering consequently discussed with the hospitalist as he was initially discharged and then family felt uncomfortable going home. Consults/Care Managements Discussions: Per [facility] Triage Nursing notes reviewed. Limited review of prior medical records performed Vital Signs: reviewed and remarkable for HTN Differential diagnosis: Mood disorder, infection, hypoglycemia, electrolyte abnormalities, cardiac sources, intracerebral event, toxicologic, trauma, neurologic, as well as other pathologies. ER treatment provided: See below Diagnostics interpreted by me include EKG and cardiac monitoring as listed below: -Cardiac Monitoring: An order was placed for continuous cardiac monitoring. The monitor shows a rate of 80 with sinus rhythm. -ECG: Sinus rhythm rate of 68 Normal axis Left axis No PVCs QTc 431 -Laboratory studies:Interpreted by me as stated above in MDM and shown below. Imaging studies: Xrays: As interpreted by me: Portable AP upright 1 view of the chest shows no focal Lutrate CTs show: CT head was negative Procedures:none Critical Care: None Past Med/Surg History Problem List (Updated 10/15/24 @ 09:03 by Jef Del Rio DO) HTN (hypertension) (Acute) Anxiety (Acute) Headache (Acute) Mild neurocognitive disorder Anxiety (Acute) Depression, unspecified Spinal stenosis (Acute) Isolated TSH deficiency Hyperthyroidism Back pain of lumbar region with sciatica (Acute) Adrenal insufficiency (Acute) CAD (coronary atherosclerotic disease) (Acute) Prediabetes 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 Trochanteric bursitis of right hip History of pituitary adenoma Chronic kidney disease, stage III (moderate) (Acute) Dyslipidemia Osteopenia Prostatic hypertrophy 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 TORRES BPH (benign prostatic hyperplasia) IBS (irritable bowel syndrome) GERD (gastroesophageal reflux disease) History of melanoma Hearing deficit BL MCRAE Lumbar herniated disc MULTIPLE Surgical History Hx laparoscopic cholecystectomy (06/03/19) Laparoscopic Cholecystectomy Dr. 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 Status post trigger finger release History of esophagogastroduodenoscopy (EGD) 04/20/2019. MAC no issues. History of colonoscopy History of melanoma excision CHEST - W/ SKIN GRAFTING. 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 Beliefs That Will Affect Care: None Current Living Situation: Spouse Current Living Situation Comment: [facility] Feels Safe at Home: Yes Assistive Devices: Walker Allergies Allergies Allergy/AdvReac Type Severity Reaction Status Date / Time lidocaine [From Lidoderm] AdvReac Mild Itching Verified 10/08/24 12:46 Home Meds Home Medications Medication Instructions Recorded Confirmed aspirin 81 mg tablet,delayed 81 mg PO DAILY 08/07/24 10/15/24 release atorvastatin 40 mg tablet 40 mg PO DAILY 08/07/24 10/15/24 dicyclomine 20 mg tablet 20 mg PO TID 08/07/24 10/15/24 dutasteride 0.5 mg-tamsulosin ER 1 cap PO HS 08/07/24 10/15/24 0.4 mg capsule ext.release 24hr mphas isosorbide mononitrate 30 mg 30 mg PO QAM 08/07/24 10/15/24 tablet,extended release 24 hr magnesium 250 mg tablet 250 mg PO QAM 08/07/24 10/15/24 multivitamin 1 tab PO DAILY 08/07/24 10/15/24 nitroglycerin 0.4 mg sublingual 0.4 mg sublingual UD 08/07/24 10/15/24 tablet omeprazole 20 mg capsule,delayed 20 mg PO UD 08/07/24 10/15/24 release sertraline 100 mg tablet 200 mg PO QAM 08/07/24 10/15/24 Tums 1 tab PO DIRECTED PRN Other 08/22/24 10/15/24 doxazosin 4 mg tablet 8 mg PO HS 08/22/24 10/15/24 quetiapine 25 mg tablet (Seroquel) 25 mg PO HS 08/22/24 10/15/24 testosterone 1 pump topical QA 09/23/24 10/15/24 calcium 600 mg-D3 800 unit-mag 40 1 tab PO BID 10/01/24 10/15/24 [id number]-[id number]-max-boron chew tablet (Caltrate 600-D Plus Minerals) docusate sodium 100 mg capsule 200 mg PO QAM 10/01/24 10/15/24 (Colace) duloxetine 30 mg capsule,delayed 30 mg PO QAM 10/01/24 10/15/24 release (Cymbalta) ticagrelor 90 mg tablet (Brilinta) 90 mg PO BID 10/01/24 10/15/24 ferrous sulfate 325 mg (65 mg 325 mg PO QAM 10/08/24 10/15/24 iron) tablet (Feosol) Probiotic 1 cap PO QAM 10/15/24 10/15/24 ascorbic acid (vitamin C) 500 mg 500 mg PO QAM 10/15/24 10/15/24 tablet (Vitamin C) hydrocortisone 5 mg tablet 10 - 20 mg PO UD 10/15/24 10/15/24 sucralfate 1 gram tablet 1 g PO DIRECTED PRN Other 10/15/24 10/15/24 Previous Rx's Medication Instructions Recorded pregabalin 50 mg capsule (Lyrica) 50 mg PO BID #60 caps 10/01/24 Results & Data (ED) Vital Signs Vital Signs - 24 hr 10/15/24 07:50 10/15/24 08:33 10/15/24 08:37 Temperature 36.4 C L Temperature Source Oral Pulse Rate 76 64 64 Respiratory Rate 20 15 Respiratory Effort / Characteristics Non-Labored Spontaneous Respiratory Depth Normal Respiratory Pattern Regular Blood Pressure 229/78 H 185/89 H Blood Pressure Mean 128 121 Pulse Oximetry 99 98 Oxygen Delivery Method Room Air Room Air Sepsis Recent Fever Within 48 Hours No Sepsis New/Unexplained Change in Mental Status N/A Sepsis Action Taken by Nursing No Action Required 10/15/24 09:03 10/15/24 11:10 10/15/24 11:48 Temperature Temperature Source Pulse Rate 90 81 63 Respiratory Rate 24 20 18 Respiratory Effort / Characteristics Respiratory Depth Respiratory Pattern Blood Pressure 163/86 H 174/93 H 181/86 H Blood Pressure Mean 111 129 140 Pulse Oximetry 97 97 95 Oxygen Delivery Method Room Air Room Air Room Air Sepsis Recent Fever Within 48 Hours Sepsis New/Unexplained Change in Mental Status Sepsis Action Taken by Nursing 10/15/24 12:00 Temperature Temperature Source Pulse Rate 73 Respiratory Rate 16 Respiratory Effort / Characteristics Respiratory Depth Respiratory Pattern Blood Pressure 186/93 H Blood Pressure Mean 124 Pulse Oximetry 95 Oxygen Delivery Method Room Air Sepsis Recent Fever Within 48 Hours Sepsis New/Unexplained Change in Mental Status Sepsis Action Taken by Nursing Laboratory Data 10/15/24 08:05 10/15/24 08:05 Lab Results 10/15/24 Range/Units 08:05 WBC 11.99 H (4.8-10.8) K/ul RBC 3.93 L (4.70-6.10) M/uL Hgb 13.2 L (14.0-18.0) g/dl Hct 39.1 L (42.0-52.0) % MCV 99.5 (80.0-100.0) fL MCH 33.6 (25.0-34.0) pg MCHC 33.8 (32.0-36.0) g/dL RDW Std Deviation 53.5 H (36.4-46.3) fL RDW Coeff of Mehnaz 14.6 H (11.5-14.5) % Plt Count 125 L (130-400) K/uL MPV 10.9 (9.4-12.4) fL Immature Gran % (Auto) 0.6 % Neut % (Auto) 73.7 % Lymph % (Auto) 18.7 % Long % (Auto) 5.2 % Eos % (Auto) 1.3 % Baso % (Auto) 0.5 % Neut # (Auto) 8.85 H (1.40-6.50) K/uL Lymph # (Auto) 2.24 (1.20-3.40) K/uL Long # (Auto) 0.62 H (0.11-0.59) K/uL Eos # (Auto) 0.15 (0.00-0.50) K/uL Baso # (Auto) 0.06 (0.00-0.20) K/uL Immature Gran # (Auto) 0.07 (0.01-0.20) K/uL Sodium 144 (136-145) mmol/L Potassium 4.1 (3.5-5.1) mmol/L Chloride 111 H (98-107) mmol/L Carbon Dioxide 28 (21-32) mmol/L Anion Gap 5 (3-11) BUN 25 H (6-23) mg/dl Creatinine 0.99 (0.6-1.4) mg/dl Est Cr Clr Drug Dosing 54.7 ml/min eGFR 75.58 BUN/Creatinine Ratio 25.3 H (10-20) Glucose 100 H (70-99(Fasting)) mg/dl Calcium 9.9 (8.6-10.3) mg/dl Total Bilirubin 0.6 (0.2-1.0) mg/dl AST 28 (13-39) U/L ALT 28 (7-52) U/L Alkaline Phosphatase 75 (34-104) U/L Troponin I High Sens 19.9 (0-20) pg/ml Total Protein 6.3 (6.0-8.3) gm/dl Albumin 3.9 (3.4-5.0) gm/dl Globulin 2.4 L (2.5-4.0) gm/dl Albumin/Globulin Ratio 1.6 (0.9-2) Lipase 23 (11-82) U/L Administered Medications Discontinued Medications Acetaminophen (Acetaminophen 325 Mg Tab) 650 mg PO NOW STA Stop: 10/15/24 09:14 Last Admin: 10/15/24 09:21 Dose: 650 mg Documented By: MICHELE Aspirin (Aspirin 81 Mg Ectab) 81 mg PO NOW STA Stop: 10/15/24 09:38 Last Admin: 10/15/24 11:07 Dose: 81 mg Documented By: MICHELE Atorvastatin Calcium (Atorvastatin 40 Mg Tab) 40 mg PO NOW STA Stop: 10/15/24 09:51 Last Admin: 10/15/24 10:27 Dose: 40 mg Documented By: MICHELE Duloxetine HCl (Duloxetine Hcl 60 Mg Cap) 60 mg PO ONE ONE Stop: 10/15/24 09:37 Last Admin: 10/15/24 10:26 Dose: 60 mg Documented By: MICHELE Hydrocortisone (Hydrocortisone 10 Mg Tab) 80 mg PO NOW STA Stop: 10/15/24 08:04 Last Admin: 10/15/24 08:34 Dose: 80 mg Documented By: MICHELE Isosorbide Mononitrate (Isosorbide Mononitrate 20 Mg Tab) 30 mg PO NOW STA Stop: 10/15/24 08:04 Last Admin: 10/15/24 08:35 Dose: 30 mg Documented By: MICHELE Lorazepam (Lorazepam 2 Mg/1 Ml Vial) 0.25 mg IV NOW STA Stop: 10/15/24 08:04 Last Admin: 10/15/24 08:12 Dose: 0.25 mg Documented By: MICHELE Lorazepam (Lorazepam 0.5 Mg Tab) 0.5 mg PO NOW STA Stop: 10/15/24 10:48 Last Admin: 10/15/24 11:07 Dose: 0.5 mg Documented By: MICHELE Pregabalin (Pregabalin 50 Mg Cap) 50 mg PO ONE ONE Stop: 10/15/24 11:04 Last Admin: 10/15/24 11:55 Dose: 50 mg Documented By: MCIHELE Sertraline HCl (Sertraline Hcl 100 Mg Tablet) 200 mg PO NOW STA Stop: 10/15/24 09:36 Last Admin: 10/15/24 10:26 Dose: 200 mg Documented By: MICHELE Ticagrelor (Ticagrelor 90 Mg Tab) 90 mg PO ONE ONE Stop: 10/15/24 09:37 Last Admin: 10/15/24 11:07 Dose: 90 mg Documented By: MMN Imaging Data Radiologist's Impression: Chest X-Ray 10/15/24 08:06 XR chest 1V portable CLINICAL HISTORY: Chest pain, nonspecific COMPARISON STUDY: 08/10/2024 FINDINGS: Heart size and pulmonary vasculature are normal. Stable mild elevation of the right hemidiaphragm. No effusion, consolidation, or pneumothorax. No acute osseous finding seen. IMPRESSION: No acute findings. ACT 112: Negative or not required by law. Electronically signed by: Jagjit Horvath M.D. 10/15/2024 8:[address] 10/15/24 08:06 CT head/brain wo con CLINICAL HISTORY: mcrae. Mental status change TECHNIQUE: Multiple axial CT images of the head were obtained without contrast. A dose lowering technique was utilized adhering to the principles of ALARA. Sagittal and coronal reconstructions were performed. CT DOSE: 547.75 mGy.cm COMPARISON: 07/29/2024 FINDINGS: The CT findings are stable. There is no intra-axial or extra-axial fluid collection, hemorrhage, or mass. There is a senescent atrophy and diminished white matter attenuation most commonly associated with small vessel insufficiency. No midline shift. The calvarium demonstrates either an old healed left frontal skull injury or postsurgical change. This is also stable in retrospect. No additional bony lesions are identified. IMPRESSION: Stable exam; no acute intracranial process. ACT 112: Negative or not required by law. The above report was generated using voice recognition software. It may contain grammatical, syntax or spelling errors. Electronically signed by: Alley Kerr M.D. 10/15/2024 8:39 AM Discharge Plan Visit Data Chief Complaint: Confusion Stated Complaint: CONFUSION "MY MIND IS SCREWED UP" ED Provider: Jef Del Rio Discharge Problem: Headache, Anxiety, HTN (hypertension) Discharge Instructions Krames/Other Patient Handouts: ED Anxiety Reaction, ED Headache, Tension, ED Hypertension, Established Activity Restrictions/Additional Instructions: Please follow up with your primary care doctor with in the next 24 hours. Any worsening of your symptoms, please return to the ED immediately. This includes any fevers greater than 100.4, worsening pain, chest pain, shortness breath, persistent nausea, vomiting, unable to eat or drink, or any other concerning signs or symptoms from your standpoint. You were given medications during this visit that will inhibit your ability to drive, operate machinery and work. Please do NOT drive, operate machinery, drink alcohol or work for the next 12hrs. You were found to have a blood pressure greater than 120 systolic over 90 diastolic. Due to the new Medicare guidelines, we are now recommending that you follow up with your primary care doctor in regards to this elevated blood pressure. You are given a prescription for Ativan. Please take this once a day as needed anxiety. Please do not drive, work or operate heavy machinery or take any other sedatives or narcotics in combination with this. Please return to the ER for any new or worsening symptoms. Forms Stand Alone Forms: [facility] [email or web address] Prescriptions Prescriptions: No Action Brilinta 90 mg tablet 90 mg PO BID Caltrate 600-D Plus Minerals 600 mg calcium- 800 unit-40 mg tablet,chewable 1 tab PO BID docusate sodium [Colace] 100 mg capsule 200 mg PO QAM pregabalin [Lyrica] 50 mg capsule 50 mg PO BID Qty: 60 2RF Rx Instructions: is supposed to start today 10/15 duloxetine [Cymbalta] 30 mg capsule,delayed release(DR/EC) 30 mg PO QAM testosterone 20.25 mg/1.25 gram (1.62 %) gel in metered-dose pump 1 pump topical QAM ferrous sulfate [Feosol] 325 mg (65 mg iron) tablet 325 mg PO QAM atorvastatin 40 mg tablet 40 mg PO DAILY isosorbide mononitrate 30 mg tablet extended release 24 hr 30 mg PO QAM sertraline 100 mg tablet 200 mg PO QAM aspirin 81 mg Tablet,Delayed Release (Dr/Ec) 81 mg PO DAILY dicyclomine 20 mg tablet 20 mg PO TID nitroglycerin 0.4 mg tablet, sublingual 0.4 mg sublingual UD Rx Instructions: q5min prn chest pain x3 omeprazole 20 mg capsule,delayed release(DR/EC) 20 mg PO UD Rx Instructions: 20 mg po BID. isn't sure if pt still takes this med. multivitamin Tablet 1 tab PO DAILY magnesium 250 mg Tablet 250 mg PO QAM dutasteride-tamsulosin 0.5-0.4 mg Capsule, Er Multiphase 24 Hr 1 cap PO HS Tums 1 tab PO DIRECTED PRN (Reason: Other) Rx Instructions: otc quetiapine [Seroquel] 25 mg Tablet 25 mg PO HS Rx Instructions: doesnt have dose on her list. doxazosin 4 mg Tablet 8 mg PO HS sucralfate 1 gram Tablet 1 g PO DIRECTED PRN (Reason: Other) Rx Instructions: per , pt sometimes takes medication. Unknown freq. ascorbic acid (vitamin C) [Vitamin C] 500 mg Tablet 500 mg PO QAM Probiotic 1 cap PO QAM hydrocortisone 5 mg tablet 10 - 20 mg PO UD Rx Instructions: orally; take 20 mg (4 tabs) in the Mornings and 10 mg (2 tabs) in the Evenings Referrals Referrals: Shalom Lieberman MD [Primary Care Provider] - Discharge Problem: Headache Qualifiers: Headache type: unspecified Headache chronicity pattern: unspecified pattern I ntractability: not intractable Qualified Code(s): R51.9 - Headache, unspecified HTN (hypertension) Qualifiers: Hypertension type: unspecified Qualified Code(s): I10 - Essential (primary) hypertension
[2024-10-15 08:20] LABS: Basophils # (auto) 0.06 K/uL (0.00-0.20); Basophils % (auto) 0.5 %; Eosinophils # (auto) 0.15 K/uL (0.00-0.50); Eosinophils % (auto) 1.3 %; Hematocrit (blood only) 39.1 % (42.0-52.0); Hemoglobin 13.2 g/dl (14.0-18.0); Immature Granulocytes # (auto) 0.07 K/uL (0.01-0.20); Immature Granulocytes % (auto) 0.6 %; Lymphocytes # (auto) 2.24 K/uL (1.20-3.40); Lymphocytes % (auto) 18.7 %; Mean Corpuscular Hemoglobin 33.6 pg (25.0-34.0); Mean Corpuscular Hgb Conc 33.8 g/dL (32.0-36.0); Mean Corpuscular Volume 99.5 fL (80.0-100.0); Mean Platelet Volume 10.9 fL (9.4-12.4); Monocytes # (auto) 0.62 K/uL (0.11-0.59); Monocytes % (auto) 5.2 %; Neutrophils # (auto) 8.85 K/uL (1.40-6.50); Neutrophils % (auto) 73.7 %; Platelet Count 125 K/uL (130-400); RDW Coefficient of Variation 14.6 % (11.5-14.5); RDW Standard Deviation 53.5 fL (36.4-46.3); Red Blood Count 3.93 M/uL (4.70-6.10); White Blood Count 11.99 K/ul (4.8-10.8)
--- NOTE | 2024-10-15 08:32 | XRay Report ---
XR chest 1V portable CLINICAL HISTORY: Chest pain, nonspecific COMPARISON STUDY: 08/10/2024 FINDINGS: Heart size and pulmonary vasculature are normal. Stable mild elevation of the right hemidia phragm. No effusion, consolidation, or pneumothorax. No acute osseous finding seen. IMPRESSION: No acute findings. ACT 112: Negative or not required by law. Electronically signed by: Jagjit Horvath M.D. 10/15/2024 8:31 AM
[2024-10-15] MEDS: HYDROCORTISONE 10 MG TAB PO STA (08:34)
[2024-10-15] MEDS: ISOSORBIDE MONONITRATE 20 MG TAB PO STA (08:35)
[2024-10-15 08:36] LABS: Albumin Globulin Ratio 1.6 (0.9-2); Albumin Level 3.9 gm/dl (3.4-5.0); BUN Creatinine Ratio 25.3 (10-20); Bilirubin,Total 0.6 mg/dl (0.2-1.0); Calcium 9.9 mg/dl (8.6-10.3); Creatinine Clr Calc Pharmacy 54.7 ml/min; Globulin 2.4 gm/dl (2.5-4.0); Potassium 4.1 mmol/L (3.5-5.1); Total Protein 6.3 gm/dl (6.0-8.3)
--- NOTE | 2024-10-15 08:40 | CT Scan Report ---
CT head/brain wo con CLINICAL HISTORY: [place]. Mental status change TECHNIQUE: Multiple axial CT images of the head were obtained without contrast. A dose lowering tech nique was utilized adhering to the principles of ALARA. Sagittal and coronal reconstructions were per formed. CT DOSE: 547.75 mGy.cm COMPARISON: 07/29/2024 FINDINGS: The CT findings are stable. There is no intra-axial or extra-axial fluid collection, hemorr americo, or mass. There is a senescent atrophy and diminished white matter attenuation most commonly ass ociated with small vessel insufficiency. No midline shift. The calvarium demonstrates either an old h ealed left frontal skull injury or postsurgical change. This is also stable in retrospect. No additio nal bony lesions are identified. IMPRESSION: Stable exam; no acute intracranial process. ACT 112: Negative or not required by law. The above report was generated using voice recognition software. It may contain grammatical, syntax o r spelling errors. Electronically signed by: Alley Kerr M.D. 10/15/2024 8:39 AM
[2024-10-15 08:42] LABS: Troponin I High Sensitivity 19.9 pg/ml (0-20)
[2024-10-15] MEDS: ACETAMINOPHEN 325 MG TAB PO STA (09:21)
--- NOTE | 2024-10-15 10:11 | Electrocardiogram Report ---
Test Reason : Blood Pressure : */* mmHG Vent. Rate : 68 BPM Atrial Rate : 68 BPM P-R Int : 170 ms QRS Dur : 84 ms QT Int : 406 ms P-R-T Axes : 41 -34 0 degrees QTcB Int : 431 ms Normal sinus rhythm Left axis deviation Inferior infarct (cited on or before 20-Aug-2024) Abnormal ECG When compared with ECG of 23-Aug-2024 07:04, Questionable change in initial forces of Inferior leads QT has shortened Confirmed by Darin Arceo ([id number]) on 10/15/2024 10:10:56 AM Referred By: REFERRED SELF Confirmed By: Darin Arceo
[2024-10-15] MEDS: DULoxetine HCL 60 MG CAP PO ONE (10:26)
[2024-10-15] MEDS: SERTRALINE HCL 100 MG TABLET PO STA (10:26)
[2024-10-15] MEDS: ATORVASTATIN 40 MG TAB PO STA (10:27)
--- NOTE | 2024-10-15 11:06 | Hospitalist Progress Note ---
Date of Service October 15, 2024 Results & Data Results & Data Vital Signs (Past 12 Hours) Vital Signs Temp Pulse Resp BP Pulse Ox O2 Del Method 10/15/24 09:03 90 24 163/86 H 97 Room Air 10/15/24 08:37 64 10/15/24 08:33 64 15 185/89 H 98 Room Air 10/15/24 07:50 36.4 C L 76 20 229/78 H 99 Room Air
[2024-10-15] MEDS: TICAGRELOR 90 MG TAB PO ONE (11:07)
[2024-10-15] MEDS: LORazepam 0.5 MG TAB PO STA (11:07)
[2024-10-15] MEDS: ASPIRIN 81 MG ECTAB PO STA (11:07)
--- NOTE | 2024-10-15 11:45 | History & Physical Report ---
Date of Service October 15, 2024 Assessment & Plan (1) Headache: (2) Anxiety: (3) HTN (hypertension): (4) Mild neurocognitive disorder: (5) CAD (coronary atherosclerotic disease): (6) History of pituitary adenoma: (7) Chronic kidney disease, stage III (moderate): (8) Blind left eye: Plan This is an 84-year-old gentleman with past medical history that includes CAD s/p recent stent placement 06/2024, hypertension, hyperlipidemia, history of pituitary adenoma surgery, panhypopituitarism (growth hormone deficiency, ACTH deficiency, central hypogonadism, toxic multinodular goiter as per records),hyperprolactinemia as per records, chronic steroid Rx, CKD III, chronic anemia (baseline hemoglobin 12-13), melanoma as per records BPH, anxiety/mood disorder, history of DVT as per records, chronic back pain secondary to LSS, past tobacco abuse who presented to ED today due to anxiety, headache and unable to care for patient in current state. Patient with multiple admissions and ED visits over the past few months as well as a recent inpatient geriatric psych admission for 8 days (08/12-08/20/2024). Headache HTN urgency - in setting of missed AM meds, severe anxiety CT head unremarkable Not consistent with migraine Given missed home BP AM meds Continue Toprol 50mg BID, Imdur, Doxazosin HS PRN Hydralazine added Recently weaned off of gabapentin, now on lyrica Routine neurology consult for evaluation intermittent spastic movements, headache Continue PRN tylenol, trial ice, optimize PRN Mood disorder, severe anxiety Mild neurocognitive disorder Seen by psychiatry on previous admission - diagnostically unclear. Subjective restlessness felt to be component of anxiety vs dementia or medication side effect (akathisia) MOCA done with score of 20/30 consistent with mild neurocognitive impairment, felt to have decision-making capacity on previous admission Psych consulted for help with ongoing severe anxiety Continue sertraline 200mg daily, Seroquel 25mg HS, Trazodone 150mg HS HTN Obstructive CAD s/p stent 06/2024 Recent STEMI, inferolateral June 2024 late presentation inferolateral STEMI. Catheterization with multivessel coronary artery disease, culprit proximal RCA stenosis status post PCI of the RCA with 3 overlapping drug-eluting stents Status post PCI of the mid left circumflex with 1 drug-eluting stent. Residual intermediate stenosis of the mid LAD noted on repeat cardiac catheterization 07/10/2024 as well as branch vessel disease as noted above. Now following with Dr. Dozier for cardiac care Continue ASA and Brillinta, Toprol, statin, Imdur Bumex and lisinopril discontinued over the past month Chronic abdominla pain Bentyl 20mg TID, Miralax daily Chronic Back pain Lumbar Stenosis History of KHUSHBOO 09/2023, 07/2021 Per recent pain mgmt note - weaning gabapentin due to limited benefit, now taking Lyrica 50mg BID CKD III Cr 0.99 (baseline Cr 1.8-2) Monitor with daily BMP Chronic steroid therapy 2/2 adrenal insufficiency Panhypopituitarism Pituitary tumor follows Dr. Recee Continue testosterone replacement, Methimazole 2.5mg daily, hydrocortisone 20mg AM and 10mg PM DVT Ppx: SQ heparin Code status: FULL PCP: Domi Dispo: obs to med/surg - BP elevated again this afternoon. If persistently elevated after additional meds, will admit and move to tele Patient seen in collaboration with Dr. Chavez. Please see addendum. I spent a total of 75 minutes coordinating, documenting, and providing care for this patient excluding time spent in the performance of separately billed services or time spent by another provider/QHP. History of Present Illness Chief Complaint: headache, anxiety Primary Care Provider: Shalom Lieberman MD This is an 84-year-old gentleman with past medical history that includes CAD s/p recent stent placement 06/2024, hypertension, hyperlipidemia, history of pituitary adenoma surgery, panhypopituitarism (growth hormone deficiency, ACTH deficiency, central hypogonadism, toxic multinodular goiter as per records),hyperprolactinemia as per records, chronic steroid Rx, CKD III, chronic anemia (baseline hemoglobin 12-13), melanoma as per records BPH, anxiety/mood disorder, history of DVT as per records, chronic back pain secondary to LSS, past tobacco abuse who presented to ED today due to anxiety, headache and unable to care for patient in current state. Patient with multiple admissions and ED visits over the past few months as well as a recent inpatient geriatric psych admission for 8 days (08/12-08/20/2024). Most recently admitted to our service for abdominal pain on Bentyl. During that admission, was seen by psychiatry with MOCA performed and diagnosed with mild neurocognitive disorder. Since discharge home, states patient has been doing better until the past 3 days when he has complained of intermittent pain and has been sleeping more. Patient states headache is frontal and is sharp/stabbing intermittently. Not helped by tylenol in ED. No visual disturbances, focal weakness, photophobia or phonophobia. No associated N/V. Denies any exacerbating or alleviating factors. Admits to feeling anxious right now. does not feel she can care for him at home in this state. No F/C, lightheadedness, CP, SOB, N/V, abd pain, dysuria, diarrhea or constipation. Ordered home medications while in ED. Allergies Allergy/AdvReac Type Severity Reaction Status Date / Time lidocaine [From Lidoderm] AdvReac Mild Itching Verified 10/08/24 12:46 Home Medications Medication Instructions Recorded Confirmed Type aspirin 81 mg tablet,delayed 81 mg PO DAILY 08/07/24 10/15/24 History release atorvastatin 40 mg tablet 40 mg PO DAILY 08/07/24 10/15/24 History dicyclomine 20 mg tablet 20 mg PO TID 08/07/24 10/15/24 History dutasteride 0.5 mg-tamsulosin ER 1 cap PO HS 08/07/24 10/15/24 History 0.4 mg capsule ext.release 24hr mphas isosorbide mononitrate 30 mg 30 mg PO QAM 08/07/24 10/15/24 History tablet,extended release 24 hr magnesium 250 mg tablet 250 mg PO QAM 08/07/24 10/15/24 History multivitamin 1 tab PO DAILY 08/07/24 10/15/24 History nitroglycerin 0.4 mg sublingual 0.4 mg sublingual UD 08/07/24 10/15/24 History tablet omeprazole 20 mg capsule,delayed 20 mg PO UD 08/07/24 10/15/24 History release sertraline 100 mg tablet 200 mg PO QAM 08/07/24 10/15/24 History Tums 1 tab PO DIRECTED PRN Other 08/22/24 10/15/24 History doxazosin 4 mg tablet 8 mg PO HS 08/22/24 10/15/24 History quetiapine 25 mg tablet (Seroquel) 25 mg PO HS 08/22/24 10/15/24 History testosterone 1 pump topical QAM 09/23/24 10/15/24 History calcium 600 mg-D3 800 unit-mag 40 1 tab PO BID 10/01/24 10/15/24 History wm-wfog-vhsj-max-boron chew tablet (Caltrate 600-D Plus Minerals) docusate sodium 100 mg capsule 200 mg PO QAM 10/01/24 10/15/24 History (Colace) duloxetine 30 mg capsule,delayed 30 mg PO QAM 10/01/24 10/15/24 History release (Cymbalta) ticagrelor 90 mg tablet (Brilinta) 90 mg PO BID 10/01/24 10/15/24 History ferrous sulfate 325 mg (65 mg 325 mg PO QAM 10/08/24 10/15/24 History iron) tablet (Feosol) Probiotic 1 cap PO QAM 10/15/24 10/15/24 History ascorbic acid (vitamin C) 500 mg 500 mg PO QAM 10/15/24 10/15/24 History tablet (Vitamin C) hydrocortisone 5 mg tablet 10 - 20 mg PO UD 10/15/24 10/15/24 History methimazole 5 mg tablet 5 mg PO DAILY 10/15/24 10/15/24 History metoprolol succinate 50 mg 50 mg PO BID 10/15/24 10/15/24 History tablet,extended release 24 hr pregabalin 50 mg capsule 50 mg PO BID 10/15/24 10/15/24 History sucralfate 1 gram tablet 1 g PO DIRECTED PRN Other 10/15/24 10/15/24 History trazodone 150 mg tablet 150 mg PO HS 10/15/24 10/15/24 History Past Med/Surg History Problem List HTN (hypertension) (Acute) Anxiety (Acute) Headache (Acute) Mild neurocognitive disorder Anxiety (Acute) Depression, unspecified Spinal stenosis (Acute) Isolated TSH deficiency Hyperthyroidism Back pain of lumbar region with sciatica (Acute) Adrenal insufficiency (Acute) CAD (coronary atherosclerotic disease) (Acute) Prediabetes 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 Trochanteric bursitis of right hip History of pituitary adenoma Chronic kidney disease, stage III (moderate) (Acute) Dyslipidemia Osteopenia Prostatic hypertrophy 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 TORRES BPH (benign prostatic hyperplasia) IBS (irritable bowel syndrome) GERD (gastroesophageal reflux disease) History of melanoma Hearing deficit BL MCRAE Lumbar herniated disc MULTIPLE Surgical History Hx laparoscopic cholecystectomy (06/03/19) Laparoscopic Cholecystectomy Dr. 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 Status post trigger finger release History of esophagogastroduodenoscopy (EGD) 04/20/2019. MAC no issues. History of colonoscopy History of melanoma excision CHEST - W/ SKIN GRAFTING. (LEFT GROIN DONOR SITE) Family History Sister Family hx of colon cancer Father Tobacco use Coronary heart disease Mother Diverticulosis of intestine Sister Ovarian cancer Colon cancer Grandfather Cancer Aunt Cancer Uncle Cancer Grandmother (Maternal) Cancer Other No significant family history Social History Smoking Status: Former smoker Tobacco Type: Cigarettes Second Hand Exposure: No; Do You Dip or Chew Tobacco: No; Hx Alcohol Use: No Hx Substance Use: No Preferred Language: Kiswahili Communication Ability: Effective Visual Impairment: No Limitations Flour Tester Required: No Beliefs That Will Affect Care: None Current Living Situation: Spouse Current Living Situation Comment: lives with 2 cats as well Other Information That Helps Us Care for You: No Feels Safe at Home: Yes Safety Concerns: Feels Safe At This Time Assistive Devices: Glasses and Hearing Aid - Bilateral Review of Systems Review of Systems: At least ten systems reviewed and negative except as noted in the HPI. Physical Exam Physical Exam: General Appearance: WD/WN, vitals as above, NAD, sitting up in bed, anxious, moving around intermittently, follows commands Head: normocephalic, atraumatic Eyes: normal inspection, PERRL, conjunctivae normal, anicteric sclerae, + blind L eye ENT: external ear and nose normal, oropharynx normal Neck: normal visual inspection, trachea midline, no thyromegaly Respiratory: normal respiratory effort, lungs clear to auscultation, no wheeze, rales, rhonchi. No accessory muscle use Cardiovascular: regular rate, rhythm, normal peripheral pulses, no BLE edema. Vessels: no JVD Chest: normal inspection of chest Abdomen/GI: normal bowel sounds, soft, nontender, no hepatosplenomegaly Extremities/Musculoskeletal: no cyanosis or clubbing, extremities motor strength 5/5 Neurologic: PERRL, EOMI, accommodation nl, no face palsy, no dysarthria, CN's II-XI intact bilaterally and moves all extremities Psychiatric: A+Ox3, + anxious Skin: no rashes, normal color, warm/dry Results & Data Results & Data Vital Signs (Past 12 Hours) Vital Signs Temp Pulse Resp BP Pulse Ox O2 Del Method 10/15/24 11:10 81 20 174/93 H 97 Room Air 10/15/24 09:03 90 24 163/86 H 97 Room Air 10/15/24 08:37 64 10/15/24 08:33 64 15 185/89 H 98 Room Air 10/15/24 07:50 36.4 C L 76 20 229/78 H 99 Room Air Laboratory Results Short CBC 10/15/24 Range/Units 08:05 WBC 11.99 H (4.8-10.8) K/ul Hgb 13.2 L (14.0-18.0) g/dl Hct 39.1 L (42.0-52.0) % Plt Count 125 L (130-400) K/uL BMP 10/15/24 08:05 Sodium 144 Potassium 4.1 Chloride 111 H Carbon Dioxide 28 BUN 25 H Creatinine 0.99 Glucose 100 H Calcium 9.9 Liver Function 10/15/24 Range/Units 08:05 Total Bilirubin 0.6 (0.2-1.0) mg/dl AST 28 (13-39) U/L ALT 28 (7-52) U/L Alkaline Phosphatase 75 (34-104) U/L Albumin 3.9 (3.4-5.0) gm/dl Diagnostic Findings Chest X-Ray 10/15/24 08:06 XR chest 1V portable CLINICAL HISTORY: Chest pain, nonspecific COMPARISON STUDY: 08/10/2024 FINDINGS: Heart size and pulmonary vasculature are normal. Stable mild elevation of the right hemidiaphragm. No effusion, consolidation, or pneumothorax. No acute osseous finding seen. IMPRESSION: No acute findings. ACT 112: Negative or not required by law. Electronically signed by: Jagjit Horvath M.D. 10/15/2024 8:[address] 10/15/24 08:06 CT head/brain wo con CLINICAL HISTORY: mcrae. Mental status change TECHNIQUE: Multiple axial CT images of the head were obtained without contrast. A dose lowering technique was utilized adhering to the principles of ALARA. Sagittal and coronal reconstructions were performed. CT DOSE: 547.75 mGy.cm COMPARISON: 07/29/2024 FINDINGS: The CT findings are stable. There is no intra-axial or extra-axial fluid collection, hemorrhage, or mass. There is a senescent atrophy and diminished white matter attenuation most commonly associated with small vessel insufficiency. No midline shift. The calvarium demonstrates either an old healed left frontal skull injury or postsurgical change. This is also stable in retrospect. No additional bony lesions are identified. IMPRESSION: Stable exam; no acute intracranial process. ACT 112: Negative or not required by law. The above report was generated using voice recognition software. It may contain grammatical, syntax or spelling errors. Electronically signed by: Alley Kerr M.D. 10/15/2024 8:39 AM Supervising Physician Co-Signing Physician Notes Patient seen and examined independently. Discussed with above provider. Patient presents to the hospital with headache, intermittent spastic movement and feeling anxious. Patient recently weaned off of gabapentin; plan to start pregabalin as per his . CT head without contrast on admission did not show any acute finding. Will consult neurology for evaluation intermittent spastic movements; also consult psychiatry for severe anxiety. I have reviewed the advanced practitioner's documentation, and I agree with, and take responsibility for the plan of care I spent a total of 30 minutes coordinating, documenting, and providing care for this patient excluding time spent in the performance of separately billed services. All of the aforementioned completed while collaborating with the assigned advanced practitioner for a full treatment plan (1) Headache Headache chronicity pattern: unspecified pattern Headache type: unspecified Intractability: not intractable Qualified Code(s): R51.9 - Headache, unspecified (3) HTN (hypertension) Hypertension type: unspecified Qualified Code(s): I10 - Essential (primary) hypertension (5) CAD (coronary atherosclerotic disease) Associated angina: unspecified whether angina present Coronary Disease- Associated Artery/Lesion type: unspecified vessel or lesion type [place] vs. transplanted heart: kn[place] heart Qualified Code(s): I25.10 - Atherosclerotic heart disease of [place] coronary artery without angina pectoris (7) Chronic kidney disease, stage III (moderate) Chronic kidney disease stage 3 subtype: unspecified whether 3a or 3b Qualified Code(s): N18.30 - Chronic kidney disease, stage 3 unspecified
[2024-10-15] MEDS: PREGABALIN 50 MG CAP PO ONE (11:55)
[2024-10-15] MEDS ORDERED: POLYETHYLENE (MIRALAX) 17 GM PACK PO PRN (15:09)
[2024-10-15] MEDS ORDERED: ALUMINUM/MAGNESIUM SUSP 30 ML UDC PO PRN (15:09)
[2024-10-15] MEDS ORDERED: ONDANSETRON INJ 2 MG/ML 2 ML VIAL IV PRN (15:09)
[2024-10-15] MEDS ORDERED: CALCIUM CARBONATE 1250MG TAB PO PRN (15:12)
[2024-10-15] MEDS ORDERED: SUCRALFATE 1 GM TAB PO PRN (15:14)
[2024-10-15] MEDS: ACETAMINOPHEN 325 MG TAB PO PRN (15:36)
[2024-10-15] MEDS: hydrALAZINE HCL 20 MG/ML VIAL IV PRN (15:36)
[2024-10-15] MEDS: DICYCLOMINE HCL 20 MG TAB PO SCH (15:37)
[2024-10-15] MEDS: ACETAMINOPHEN 500 MG TAB PO SCH (15:41)
[2024-10-15] MEDS: METOPROLOL SUCC 50MG EXT REL TAB PO SCH (15:42)
[2024-10-15] MEDS: TAMSULOSIN HCL 0.4 MG CAP PO SCH (19:50)
[2024-10-15] MEDS: DOXAZosin MESYLATE 4 MG TAB PO SCH (19:50)
[2024-10-15] MEDS: TICAGRELOR 90 MG TAB PO SCH (19:51)
[2024-10-15] MEDS: QUEtiapine FUMARATE 25 MG TABLET PO SCH (19:51)
[2024-10-15] MEDS: MELATONIN 3 MG TAB PO PRN (20:02)
[2024-10-15] MEDS: traZODone HCL 50 MG TAB PO SCH (20:02)
[2024-10-15] MEDS: ACETAMINOPHEN W/CODEINE #3 1 TAB PO PRN (20:02)
[2024-10-15] MEDS: PREGABALIN 50 MG CAP PO SCH (20:02)
[2024-10-15] MEDS: ACETAMINOPHEN 325 MG TAB PO SCH (20:21)
[2024-10-16] MEDS: DOCUSATE SODIUM 100 MG CAP PO SCH (07:55)
[2024-10-16] MEDS: CEROVITE ADV FORMULA TAB PO SCH (07:56)
[2024-10-16] MEDS: DULoxetine HCL 30 MG CAP PO SCH (07:56)
[2024-10-16] MEDS: ASCORBIC ACID 500 MG TAB PO SCH (07:56)
[2024-10-16] MEDS: ASPIRIN 81 MG ECTAB PO SCH (07:56)
[2024-10-16] MEDS: ATORVASTATIN 40 MG TAB PO SCH (07:57)
[2024-10-16] MEDS: methIMAzole 5 MG TABLET PO SCH (07:57)
[2024-10-16] MEDS: HYDROCORTISONE 10 MG TAB PO SCH ×2 (07:58→15:52)
[2024-10-16] MEDS: ADVANCED PROBIOTIC 625 MG CAPSULE PO SCH (07:58)
[2024-10-16] MEDS: FERROUS SULFATE 325 MG TAB PO SCH (07:59)
[2024-10-16] MEDS: MULTIVITAMIN TAB PO SCH (07:59)
[2024-10-16] MEDS: ISOSORBIDE MONO EXTENDED REL 30 MG TABCR PO SCH (07:59)
[2024-10-16] MEDS: PANTOprazole 40 MG TAB PO SCH (07:59)
[2024-10-16] MEDS: SERTRALINE HCL 100 MG TABLET PO SCH (08:00)
[2024-10-16] MEDS: MAGNESIUM OXIDE 400 MG TAB PO SCH (08:00)
[2024-10-16 08:46] LABS: Hematocrit (blood only) 41.5 % (42.0-52.0); Hemoglobin 13.6 g/dl (14.0-18.0); Mean Corpuscular Hemoglobin 32.9 pg (25.0-34.0); Mean Corpuscular Hgb Conc 32.8 g/dL (32.0-36.0); Mean Corpuscular Volume 100.5 fL (80.0-100.0); Mean Platelet Volume 11.4 fL (9.4-12.4); Platelet Count 112 K/uL (130-400); RDW Coefficient of Variation 14.7 % (11.5-14.5); RDW Standard Deviation 54.9 fL (36.4-46.3); Red Blood Count 4.13 M/uL (4.70-6.10); White Blood Count 10.07 K/ul (4.8-10.8)
[2024-10-16 08:55] LABS: Calcium 9.5 mg/dl (8.6-10.3); Creatinine Clr Calc Pharmacy 54.2 ml/min; Potassium 3.7 mmol/L (3.5-5.1)
[2024-10-16] MEDS ORDERED: ATORVASTATIN 40 MG TAB PO SCH (09:00)
--- NOTE | 2024-10-16 10:22 | Neurology Consultation ---
Date of Consultation October 16, 2024 Assessment & Plan (1) Headache: Kai Wilkerson is an 84 yo M presenting with headache likely secondary to tension/anxiety. Now symptoms are resolved. No further neurologic workup or follow-up needed. Please contact us with any further questions. Telehealth Consultation Telehealth Information Telehealth Information: I performed this visit using a real-time telehealth connection between my location and the patients location ([facility]). After connecting through interactive tele-video, patient was identified by name and date of and/or wristband check.Patient (or authorized healthcare in store marketing representative) was informed that this was a telemedicine visit and it was being conducted confidentially over secure lines. My office door was closed and no one else was present in the room with me.Patient (or authorized healthcare in store marketing representative) provided consent to proceed with the visit, expressed an understanding of privacy and security of the telemedicine visit, and gave permission to have a hospital in store marketing representative in the room in order to assist with the visit and to conduct portions of the visit, as needed. I informed the patient (or authorized healthcare in store marketing representative) that I reviewed their record and presented the opportunity for them to ask any questions regarding the visit today. The patient agreed to participate. History of Present Illness Reason for Consultation: Headache Requesting Physician: Dr. Lainez Attending Physician: Mike Lainez, DO History of Present Illness Kai Wilkerson is an 84 yo M presenting with anxiety and headache yesterday. I saw him previously for tremor/myoclonus in Jul 2024, and he reports his tremors have fully stopped with our med changes at that time. He had a severe headache yesterday and was anxious. Today he feels back to normal. No further headache or anxiety. Offers no additional complaints today. Allergies Allergy/AdvReac Type Severity Reaction Status Date / Time lidocaine [From Lidoderm] AdvReac Mild Itching Verified 10/08/24 12:46 Home Medications Medication Instructions Recorded Confirmed Type aspirin 81 mg tablet,delayed 81 mg PO DAILY 08/07/24 10/15/24 History release atorvastatin 40 mg tablet 40 mg PO DAILY 08/07/24 10/15/24 History dicyclomine 20 mg tablet 20 mg PO TID 08/07/24 10/15/24 History dutasteride 0.5 mg-tamsulosin ER 1 cap PO HS 08/07/24 10/15/24 History 0.4 mg capsule ext.release 24hr mphas isosorbide mononitrate 30 mg 30 mg PO QAM 08/07/24 10/15/24 History tablet,extended release 24 hr magnesium 250 mg tablet 250 mg PO QAM 08/07/24 10/15/24 History multivitamin 1 tab PO DAILY 08/07/24 10/15/24 History nitroglycerin 0.4 mg sublingual 0.4 mg sublingual UD 08/07/24 10/15/24 History tablet omeprazole 20 mg capsule,delayed 20 mg PO UD 08/07/24 10/15/24 History release sertraline 100 mg tablet 200 mg PO QAM 08/07/24 10/15/24 History Tums 1 tab PO DIRECTED PRN Other 08/22/24 10/15/24 History doxazosin 4 mg tablet 8 mg PO HS 08/22/24 10/15/24 History quetiapine 25 mg tablet (Seroquel) 25 mg PO HS 08/22/24 10/15/24 History testosterone 1 pump topical QA 09/23/24 10/15/24 History calcium 600 mg-D3 800 unit-mag 40 1 tab PO BID 10/01/24 10/15/24 History cd-zvns-xhoh-max-boron chew tablet (Caltrate 600-D Plus Minerals) docusate sodium 100 mg capsule 200 mg PO QAM 10/01/24 10/15/24 History (Colace) duloxetine 30 mg capsule,delayed 30 mg PO QAM 10/01/24 10/15/24 History release (Cymbalta) ticagrelor 90 mg tablet (Brilinta) 90 mg PO BID 10/01/24 10/15/24 History ferrous sulfate 325 mg (65 mg 325 mg PO QAM 10/08/24 10/15/24 History iron) tablet (Feosol) Probiotic 1 cap PO QAM 10/15/24 10/15/24 History ascorbic acid (vitamin C) 500 mg 500 mg PO QAM 10/15/24 10/15/24 History tablet (Vitamin C) hydrocortisone 5 mg tablet 10 - 20 mg PO UD 10/15/24 10/15/24 History methimazole 5 mg tablet 5 mg PO DAILY 10/15/24 10/15/24 History metoprolol succinate 50 mg 50 mg PO BID 10/15/24 10/15/24 History tablet,extended release 24 hr pregabalin 50 mg capsule 50 mg PO BID 10/15/24 10/15/24 History sucralfate 1 gram tablet 1 g PO DIRECTED PRN Other 10/15/24 10/15/24 History trazodone 150 mg tablet 150 mg PO HS 10/15/24 10/15/24 History Patient History Medical History Vitamin D deficiency History of DVT (deep vein thrombosis) Blind left eye Chronic cholecystitis Multiple renal cysts REPORTS ONLY HAS 1 FUNCTIONING KIDNEY - FOLLOWS W/ DR. TORRES BPH (benign prostatic hyperplasia) IBS (irritable bowel syndrome) GERD (gastroesophageal reflux disease) History of melanoma Hearing deficit BL MCRAE Lumbar herniated disc MULTIPLE Surgical History Hx laparoscopic cholecystectomy (06/03/19) Laparoscopic Cholecystectomy Dr. 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 Status post trigger finger release History of esophagogastroduodenoscopy (EGD) 04/20/2019. MAC no issues. History of colonoscopy History of melanoma excision CHEST - W/ SKIN GRAFTING. (LEFT GROIN DONOR SITE) Family History Sister Family hx of colon cancer Father Tobacco use Coronary heart disease Mother Diverticulosis of intestine Sister Ovarian cancer Colon cancer Grandfather Cancer Aunt Cancer Uncle Cancer Grandmother (Maternal) Cancer Other No significant family history Social History Smoking Status: Former smoker Tobacco Type: Cigarettes Second Hand Exposure: No; Do You Dip or Chew Tobacco: No; Hx Alcohol Use: No Hx Substance Use: No Preferred Language: Portuguese Communication Ability: Effective Visual Impairment: No Limitations Tool Crib Manager Required: No Beliefs That Will Affect Care: None Current Living Situation: Spouse Current Living Situation Comment: lives with 2 cats as well Other Information That Helps Us Care for You: No Feels Safe at Home: Yes Safety Concerns: Feels Safe At This Time Assistive Devices: Glasses and Hearing Aid - Bilateral Review of Systems +headache, resolved Physical Exam Neurological Examination: Mental Status: Awake and alert. Oriented to person, place, and time. Fluent. Comprehension intact. Affect appropriate. Cranial Nerves: II: Reads NIHSS cards, pupils 3/3 to 2/2, nolasco grossly intact. III/IV/: Versions intact without nystagmus, no gaze preference. V: Facial sensation symmetric to light touch VII: Facial expression symmetric VIII: Hearing intact to voice IX/X: Palate elevates symmetrically XI: Shoulder shrug symmetric XII: Tongue midline Motor: Strength was symmetric and antigravity throughout. Pronator drift was absent. There were no abnormal movements. Results & Data Vital Signs (Past 12 Hours) Vital Signs Temp Pulse Resp BP Pulse Ox O2 Del Method 10/16/24 08:59 60 136/67 10/16/24 07:51 36.7 C 62 16 227/108 H 95 Room Air Laboratory Results Abnormal lab results 10/16/24 Range/Units 08:17 RBC 4.13 L (4.70-6.10) M/uL Hgb 13.6 L (14.0-18.0) g/dl Hct 41.5 L (42.0-52.0) % MCV 100.5 H (80.0-100.0) fL RDW Std Deviation 54.9 H (36.4-46.3) fL RDW Coeff of Mehnaz 14.7 H (11.5-14.5) % Plt Count 112 L (130-400) K/uL Chloride 109 H (98-107) mmol/L BUN 24 H (6-23) mg/dl BUN/Creatinine Ratio 24.0 H (10-20) (1) Headache Headache chronicity pattern: unspecified pattern Headache type: unspecified Intractability: not intractable Qualified Code(s): R51.9 - Headache, unspecified
--- NOTE | 2024-10-16 15:02 | Psychiatric Consultation ---
Date of Consultation October 16, 2024 Impression / Recommendations Impression Mild Cognitive Impairment Anxiety Unspecified By history, alcohol use disorder in full sustained remission. By history, aberrant opioid-seeking behavior. (1) Anxiety: (2) Mild neurocognitive disorder: (3) Depression, unspecified: Plan Continue Cymbalta and Zoloft at current doses. Consider increasing dose of Lyrica, which has efficacy for both anxiety and pain. Consider a trial of buprenorphine for pain. May also address what appears to be aberrant opioid-seeking behavior. Note that pt is on systemic steroids which can cause irritability in some patients. Consider adjusting dose if medically feasible. Overall I spent a total of [75] minutes for this admission including review of chart records, review of labwork, direct evaluation of the patient, counseling the patient, ordering medication, risk assessment, discussion with the psychiatric liaison RN and documentation in the electronic health record Psych History Identifying Data 84 yo man with a history of mild cognitive impairment (MOCA score 20/30), and a past medical history that includes CAD s/p recent stent placement 06/2024, hypertension, hyperlipidemia, history of pituitary adenoma surgery, panhypopituitarism (growth hormone deficiency, ACTH deficiency, central hypogonadism, toxic multinodular goiter as per records),hyperprolactinemia as per records, chronic steroid Rx, CKD III, chronic anemia (baseline hemoglobin 12-13), melanoma as per records BPH, anxiety/mood disorder, history of DVT as per records, chronic back pain secondary to LSS, past tobacco abuse. known to psych consult services from prior admissions (see psych consult note dated 08/23/24 and 08/25/24). He was readmitted due to anxiety, headache and unable to care for patient in current state. Patient with multiple admissions and ED visits over the past few months as well as a recent inpatient geriatric psych admission for 8 days (08/12-08/20/2024). Psychiatry was consulted to assist with management of anxiety. Chief Complaint "I don't have any complaints right now. My anxiety is pretty low right now". History of Present Illness See previous psychiatric evaluations for detailed notes. Collateral obtained from patient's by psych liaison are reflected in this note. Briefly, pt is reported by his to have a difficult personality. He has a history of heavy drinking until 3 years ago when he began taking opioids (fentanyl, hydorcodone). Use escalated quickly, resulting in a pattern of aberrant use (including seeking prescriptions from various providers). Per , he remains somatically preoccupied (e.g. complaints of leg discomfort), with behavior suggesting a desire to obtain opioid prescriptions. He was last prescribed opiates in 08/2024. He was prescribed Gabapentin by his outpatient psychiatrist at [place]. However, cross-taper with Lyrica was started by a different provider recently. reports difficulty coping with living with and caring for the patient. At interview, he denied any active concerns. He reported his anxiety is well controlled. He denied depressive symptoms, and denied any other active behavioral health - related concerns. Med review: Pt is on Cymbalta 30mg daily, Zoloft 200mg daily, Seroquel 25mg qhs, Lyrica 50mg bid Past Psychiatric History Previous Psych History: Reviewed Dr Khan's psych consult note from 08/23/24 and 08/25/24. Excerpts: Ronny is known to me from recent psychiatry consult on 08/11/2024. Since that time he was admitted for geriatric psychiatry treatment for anxiety with somatic fixation, health concerns and ruminations and was started on Seroquel 25mg HS. He was brought to the ED by his family for ongoing anxiety and difficulty functioning at home. Family also expressed concerns to ED CM that he has been dependent on prescribed opioids for years and they suspect this has been contr ibuting to recent periods of agitation at home and his frequent requests to come to the hospital. Today he appears calm and states desire to get out of the hospital and return home. Acknowledges he can be "mean" to his and attributes this to fenantyl patches in the past but feels hydrocodone has not caused any issues. He minimizes any concerns about opioid misuse or dependency stating he often will go entire days without using any pain medication. Struggles to identify any specific symptoms of anxiety. 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 Also identifies poor appetite and "boredom". Denies any depressive symptoms nor SI. He isn't sure what if anything psychiatry could help with except "get me out of here". However, he understands his feels unable to manage his needs at home and he's open to exploring possible assisted living placement. Follow up note from 08/25/25: Diagnostically unclear. Reported subjective restlessness could be a component of anxiety or dementia or medication side effects (akathisia) or aspect of opioid withdrawal if he has been overusing his outpatient scripts. Notably no evidence of significant restlessness on exam today. Family collateral notable for concern for his dependence on opioids. A: Asked to reassess regarding his dispositional decision making capacity as he wants to return home and family feels unable to meet his needs. MOCA done with score of 20/30 consistent with mild neurocognitive impairment. Discussion with his RN notable for no significant memory deficits or challenging attending to his basic needs, no unsafe behaviors observed. Per review of collateral information from family it seems his pain medication seeking behaviors, anxiety and temper have been the biggest recent challenges. At this time there are no clear highly unsafe or concerning behaviors related to his mild cognitive impairment (i.e. no wandering, toileting issues, falls etc) and his medical/psychiatric conditions seem to have stabilized which seems to be fairly low risk compared with the high burden that would be required to override his wishes and take away his autonomy in forcing him out of his home. Therefore based on review of these factors, MOCA and results of the Aid to Capacity Evaluation (deemed probably capable), I feel he does have dispositional decision making capacity at this time to return home should he desire this. Should significant new safety concerns come to light then this would need to be weighed against his autonomy/desire to return home and mild neurocognitive impairment. Current Psychiatric Diagnosis: As above. History suggests opioid use disorder as a differential. Previous Psych Admissions: See above. Allergies Allergy/AdvReac Type Severity Reaction Status Date / Time lidocaine [From Lidoderm] AdvReac Mild Itching Verified 10/08/24 12:46 Home Medications Medication Instructions Recorded Confirmed Type aspirin 81 mg tablet,delayed 81 mg PO DAILY 08/07/24 10/15/24 History release atorvastatin 40 mg tablet 40 mg PO DAILY 08/07/24 10/15/24 History dicyclomine 20 mg tablet 20 mg PO TID 08/07/24 10/15/24 History dutasteride 0.5 mg-tamsulosin ER 1 cap PO HS 08/07/24 10/15/24 History 0.4 mg capsule ext.release 24hr mphas isosorbide mononitrate 30 mg 30 mg PO QAM 08/07/24 10/15/24 History tablet,extended release 24 hr magnesium 250 mg tablet 250 mg PO QAM 08/07/24 10/15/24 History multivitamin 1 tab PO DAILY 08/07/24 10/15/24 History nitroglycerin 0.4 mg sublingual 0.4 mg sublingual UD 08/07/24 10/15/24 History tablet omeprazole 20 mg capsule,delayed 20 mg PO UD 08/07/24 10/15/24 History release sertraline 100 mg tablet 200 mg PO QAM 08/07/24 10/15/24 History Tums 1 tab PO DIRECTED PRN Other 08/22/24 10/15/24 History doxazosin 4 mg tablet 8 mg PO HS 08/22/24 10/15/24 History quetiapine 25 mg tablet (Seroquel) 25 mg PO HS 08/22/24 10/15/24 History testosterone 1 pump topical [facility] 09/23/24 10/15/24 History calcium 600 mg-D3 800 unit-mag 40 1 tab PO BID 10/01/24 10/15/24 History [id number]-[id number]-dbed-max-boron chew tablet (Caltrate 600-D Plus Minerals) docusate sodium 100 mg capsule 200 mg PO [facility] 10/01/24 10/15/24 History (Colace) duloxetine 30 mg capsule,delayed 30 mg PO M 10/01/24 10/15/24 History release (Cymbalta) ticagrelor 90 mg tablet (Brilinta) 90 mg PO BID 10/01/24 10/15/24 History ferrous sulfate 325 mg (65 mg 325 mg PO QAM 10/08/24 10/15/24 History iron) tablet (Feosol) Probiotic 1 cap PO QAM 10/15/24 10/15/24 History ascorbic acid (vitamin C) 500 mg 500 mg PO QAM 10/15/24 10/15/24 History tablet (Vitamin C) hydrocortisone 5 mg tablet 10 - 20 mg PO UD 10/15/24 10/15/24 History methimazole 5 mg tablet 5 mg PO DAILY 10/15/24 10/15/24 History metoprolol succinate 50 mg 50 mg PO BID 10/15/24 10/15/24 History tablet,extended release 24 hr pregabalin 50 mg capsule 50 mg PO BID 10/15/24 10/15/24 History sucralfate 1 gram tablet 1 g PO DIRECTED PRN Other 10/15/24 10/15/24 History trazodone 150 mg tablet 150 mg PO HS 10/15/24 10/15/24 History Patient History Medical History Vitamin D deficiency History of DVT (deep vein thrombosis) Blind left eye Chronic cholecystitis Multiple renal cysts REPORTS ONLY HAS 1 FUNCTIONING KIDNEY - FOLLOWS W/ DR. TORRES BPH (benign prostatic hyperplasia) IBS (irritable bowel syndrome) GERD (gastroesophageal reflux disease) History of melanoma Hearing deficit BL MCRAE Lumbar herniated disc MULTIPLE Surgical History Hx laparoscopic cholecystectomy (06/03/19) Laparoscopic Cholecystectomy Dr. 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 Status post trigger finger release History of esophagogastroduodenoscopy (EGD) 04/20/2019. MAC no issues. History of colonoscopy History of melanoma excision CHEST - W/ SKIN GRAFTING. (LEFT GROIN DONOR SITE) Family History Sister Family hx of colon cancer Father Tobacco use Coronary heart disease Mother Diverticulosis of intestine Sister Ovarian cancer Colon cancer Grandfather Cancer Aunt Cancer Uncle Cancer Grandmother (Maternal) Cancer Other No significant family history Social History Smoking Status: Former smoker Tobacco Type: Cigarettes Second Hand Exposure: No; Do You Dip or Chew Tobacco: No; Hx Alcohol Use: No Hx Substance Use: No Preferred Language: Qatari Communication Ability: Effective Visual Impairment: No Limitations Sterile Products Processor Required: No Beliefs That Will Affect Care: None Current Living Situation: Spouse Current Living Situation Comment: lives with 2 cats as well Other Information That Helps Us Care for You: No Feels Safe at Home: Yes Safety Concerns: Feels Safe At This Time Assistive Devices: Walker Physical Exam Psychiatric: Elderly man, lying in bed, looks his stated age. Good eye contact, limited hearing as his hearing aid battery was not working. Cooperative, well related, no abnormal movements. Calm, no restlessness, and no psychomotor agitation or retardation. Orientation: oriented to person, oriented to place and oriented to time Apperance: appropriately dressed, appropriately groomed and appeared stated age Eye Contact: good eye contact Motor Behavior: no abnormal motor movements Speech: normal rate/rhythm/volume of speech Affect: euthymic affect neutral Thought Process: goal directed thought process, linear/logical thought process and clear/coherent thought process Free of delusional ideation. Suicidal Thoughts: denies suicidal thoughts, denies suicidal plan and denies suicidal intent Homicidal Thoughts: denies homicidal thoughts, denies homicidal plan and denies homicidal intent Denied Cognition: recent memory grossly intact, remote memory grossly intact, attention grossly intact and language grossly intact Estimated Intelligence: average estimated intelligence Judgment: + limited judgement Vital Signs (Past 24 Hours): Last Vital Signs Temp 36.7 C 10/16/24 07:51 Pulse 60 10/16/24 08:59 Resp 16 10/16/24 07:51 BP 136/67 10/16/24 08:59 Pulse Ox 95 10/16/24 07:51 O2 Del Method Room Air 10/16/24 07:51 Results & Data (PSY) Medications Administered Acetaminophen/Codeine Phosphate (Acetaminophen W/Codeine #3 1 Tab) 1 tab PO Q8H PRN PRN Reason: Pain Stop: 11/14/24 19:46 Last Admin: 10/15/24 20:02 Dose: 1 tab Documented By: KW Ascorbic Acid (Ascorbic Acid 500 Mg Tab) 500 mg PO QAM [facility] Stop: 11/15/24 08:59 Last Admin: 10/16/24 07:56 Dose: 500 mg Documented By: CMV Aspirin (Aspirin 81 Mg Ectab) 81 mg PO DAILY [facility] Stop: 11/15/24 08:59 Last Admin: 10/16/24 07:56 Dose: 81 mg Documented By: CMV Atorvastatin Calcium (Atorvastatin 40 Mg Tab) 40 mg PO QAM [facility] Stop: 11/15/24 08:59 Last Admin: 10/16/24 07:57 Dose: 40 mg Documented By: CMV Dicyclomine HCl (Dicyclomine Hcl 20 Mg Tab) 20 mg PO TID [facility] Stop: 11/14/24 15:08 Last Admin: 10/16/24 07:56 Dose: 20 mg Documented By: Admin: 10/15/24 19:51 Dose: 20 mg Documented By: Admin: 10/15/24 15:37 Dose: 20 mg Documented By: DM Docusate Sodium (D[facility]ate Sodium 100 Mg Cap) [facility] [place]: 11/15/24 08:59 Last Admin: 10/16/24 07:55 Dose: 200 mg Documented By: CMV Doxazosin Mesylate (Doxazosin Mesylate 4 Mg Tab) 8 mg PO HS [facility] Stop: 11/14/24 20:59 Last Admin: 10/15/24 19:50 Dose: 8 mg Documented By: KW Duloxetine HCl (Duloxetine Hcl 30 Mg Cap) [facility] [place]: 11/15/24 08:59 Last Admin: 10/16/24 07:56 Dose: 30 mg Documented By: CMV Ferrous Sulfate (Ferrous Sulfate 325 Mg Tab) [facility] Stop: 11/15/24 08:59 Last Admin: 10/16/24 07:59 Dose: 325 mg Documented By: CMV Hydralazine HCl (Hydralazine Hcl 20 Mg/Ml Vial) 10 mg IV Q6H PRN PRN Reason: SBP >180 Stop: 11/14/24 15:15 Last Admin: 10/15/24 15:36 Dose: 10 mg Documented By: DMH Hydrocortisone (Hydrocortisone 10 Mg Tab) [facility] [place]: 11/15/24 08:59 Last Admin: 10/16/24 07:58 Dose: 20 mg Documented By: CMV Isosorbide Mononitrate (Isosorbide Hawkins Extended Rel 30 Mg Tabcr) [facility] Stop: 11/15/24 08:59 Last Admin: 10/16/24 07:59 Dose: 30 mg Documented By: CMV Magnesium Oxide (Magnesium Oxide 400 Mg Tab) [facility] Stop: 11/15/24 08:59 Last Admin: 10/16/24 08:00 Dose: 200 mg Documented By: CMV Melatonin (Melatonin 3 Mg Tab) 3 mg PO HS PRN PRN Reason: Insomnia Stop: 11/14/24 15:08 Last Admin: 10/15/24 20:02 Dose: 3 mg Documented By: TRUDI Methimazole (Methimazole 5 Mg Tablet) 5 mg PO DAILY [facility] Stop: 11/15/24 08:59 Last Admin: 10/16/24 07:57 Dose: 5 mg Documented By: CMV Metoprolol Succinate (Metoprolol Succ 50mg Ext Rel Tab) 50 mg PO BID TOD Stop: 11/14/24 15:29 Last Admin: 10/16/24 07:59 Dose: 50 mg Documented By: Admin: 10/15/24 19:50 Dose: 50 mg Documented By: Admin: 10/15/24 15:42 Dose: 50 mg Documented By: TRAM Miscellaneous (Testosterone 1.62% Gel--Order Awaiting Action) 1 each N/A QS TOD Stop: 11/14/24 15:59 Last Admin: 10/16/24 08:05 Dose: Not Given Documented By: Admin: 10/15/24 23:04 Dose: Not Given Documented By: Admin: 10/15/24 15:59 Dose: Not Given Documented By: TRAM Multivitamins (Multivitamin Tab) 1 tab PO DAILY TOD Stop: 11/15/24 08:59 Last Admin: 10/16/24 07:59 Dose: 1 tab Documented By: NATALIIA Multivitamins/Minerals (Cerovite Adv Formula Tab) 1 tab PO QAM TOD Stop: 11/15/24 08:59 Last Admin: 10/16/24 07:56 Dose: 1 tab Documented By: NATALIIA Pantoprazole Sodium (Pantoprazole 40 Mg Tab) 40 mg PO DAILY [facility] Stop: 11/15/24 08:59 Last Admin: 10/16/24 07:59 Dose: 40 mg Documented By: CMV Pregabalin (Pregabalin 50 Mg Cap) 50 mg PO BID TOD Stop: 11/14/24 20:59 Last Admin: 10/16/24 08:04 Dose: 50 mg Documented By: Admin: 10/15/24 20:02 Dose: 50 mg Documented By: TRUDI Quetiapine Fumarate (Quetiapine Fumarate 25 Mg Tablet) 25 mg PO HS TOD Stop: 11/14/24 20:59 Last Admin: 10/15/24 19:51 Dose: 25 mg Documented By: TRUDI Sertraline HCl (Sertraline Hcl 100 Mg Tablet) 200 mg PO QAM [facility] Stop: 11/15/24 08:59 Last Admin: 10/16/24 08:00 Dose: 200 mg Documented By: NATALIIA Tamsulosin HCl (Tamsulosin Hcl 0.4 Mg Cap) 0.4 mg PO [facility] Stop: 11/14/24 20:59 Last Admin: 10/15/24 19:50 Dose: 0.4 mg Documented By: TRUDI Ticagrelor (Ticagrelor 90 Mg Tab) 90 mg PO BID [facility] Stop: 11/14/24 20:59 Last Admin: 10/16/24 07:59 Dose: 90 mg Documented By: Admin: 10/15/24 19:51 Dose: 90 mg Documented By: TRUDI Trazodone HCl (Trazodone Hcl 50 Mg Tab) 150 mg PO [facility] Stop: 11/14/24 20:59 Last Admin: 10/15/24 20:02 Dose: 150 mg Documented By: TRUDI [place] [address] Inpt Consult Level 1 Patient Type New History Detailed Exam Detailed Medical Decision Making Low Complexity Diagnoses Anxiety F41.9 Mild neurocognitive disorder G31.84 Depression, unspecified F32.A Time Spent (min) 75
[2024-10-16] MEDS ORDERED: hydrALAZINE HCL 20 MG/ML VIAL IV PRN (15:35)
[2024-10-16] MEDS: amLODIPine BESYLATE 5 MG TAB PO ONE (15:51)
[2024-10-16] MEDS: amLODIPine BESYLATE 5 MG TAB PO SCH (15:51)
--- NOTE | 2024-10-16 15:57 | Hospitalist Progress Note ---
Date of Service October 16, 2024 Assessment & Plan (1) Severe uncontrolled hypertension: (2) Spinal stenosis of lumbar region with radiculopathy: (3) Anxiety: (4) Mild neurocognitive disorder: (5) Chronic kidney disease, stage III (moderate): (6) Panhypopituitarism: Plan Patient presented with headache most likely due to uncontrolled hypertension. Also with some agitated behavior per his . Reviewed neurology consultation, no or additional recommendations Reviewed psychiatry recommendations. Recommending titrating Lyrica. Considering alternate treatment for his pain with buprenorphine. Continue his other medications as they are currently dosed. Phone conversation with patient's . She reports that he had just completed the taper of gabapentin on Saturday and he was to get his first dose of Lyrica on which is the day he presented to the emergency room with these changes in behaviors, headache and uncontrolled blood pressure. He actually had never taken the dose of the Lyrica at home. His first dosages were received here during this hospitalization. Agree that patient's Lyrica dose most likely will need to be titrated upwards to get maximal effect for his radicular pain. This will need to be done over several weeks. Conversation with patient's and the patient. Concerns about the codeine use patient states that he only uses the codeine a couple times a week at most. Will defer any changes in the patient's narcotic regimen to pain management and/or his PCP. reports that he has quite a longstanding history of narcotic use and has had adverse effects of fentanyl and [facility] morphine after he had been on them for quite some period time. Add Norvasc for better blood pressure control, his blood pressure was significantly improved after receiving his usual morning medications but this afternoon has trended upwards again. I suspect he needs some additional medications for his blood pressure. It is possible that some of patient's behavioral changes and blood pressure issues could be related to the titration of the gabapentin to off and not having the Lyrica started with any type of overlap. Reviewed outside EMR. Reviewed pain management from early 2023. Patient had declined injection or surgical consultation. Would prefer to treat his radicular symptoms with medications. Reviewed most recent pain management note from Last week which outlined the taper of gabapentin to often the initiation of the Lyrica. Encouraged patient to continue follow-up with pain management Patient and informed of anticipated discharge tomorrow as long as blood pressure continues to show improvement. Anticipating titrating Lyrica upwards as an outpatient. 56 minutes spent in evaluation patient bedside, review of medical record, interpretation of test and studies, communication with specialists and family and medical team Admission and Anticipated Discharge Date Admission Date: October 15, 2024 Subjective Patient reports headache completely gone. Nursing reports that his behaviors have been controlled. He has been cooperative. He is eager to get home. Physical Exam Physical Exam: Constitutional: Alert, hard of hearing HEENT: Mucous membranes moist. Lungs: Clear to auscultation, decreased, no wheezes rales or rhonchi CV: S1-S2, regular Abdomen: Soft, nontender, nondistended Extremities: No significant edema Neuro: Decreased vision and hearing Psych: Cooperative, normal mood Results & Data Results & Data Vital Signs (Past 12 Hours) Vital Signs Temp Pulse Resp BP Pulse Ox O2 Del Method 10/16/24 14:57 36.7 C 60 17 174/91 H 96 Room Air 10/16/24 08:59 60 136/67 10/16/24 07:51 36.7 C 62 16 227/108 H 95 Room Air Diagnostic Findings Reviewed imaging, laboratory and diagnostic studies. Pertinent findings as below. Hemoglobin stable Electrolytes stable Creatinine 1.0 (5) Chronic kidney disease, stage III (moderate) Chronic kidney disease stage 3 subtype: unspecified whether 3a or 3b Qualified Code(s): N18.30 - Chronic kidney disease, stage 3 unspecified
[2024-10-16 19:36] VITALS: TEMP 97.7
[2024-10-17 07:29] VITALS: RESP 18
[2024-10-17] MEDS ORDERED: amLODIPine BESYLATE 5 MG TAB PO SCH (09:00)
[2024-10-17] MEDS: ADVANCED PROBIOTIC 625 MG CAPSULE PO SCH (09:08)
--- NOTE | 2024-10-17 09:29 | Discharge Summary ---
<Statement entered by Mike Lainez DO - 10/17/24 12:22> I have seen and examined the patient and have discussed the case with the advance practice provider. I have reviewed the advanced practitioner's documentation, and I agree with, and take responsibility for that plan of care. No acute issues overnight. Patient denies any chest pain or shortness of breath. No headache. Blood pressures appear to be slowly improving with interventions. Continue amlodipine on discharge. Anticipate patient will need Lyrica titrated upwards over the next few weeks. Additional discharge plans as outlined below I spent a total of 17 minutes coordinating, documenting, and providing care for this patient excluding time spent by another provider/QHP. Discharge Summary Date of Service October 17, 2024 Principal Dx & Hospital Course #1 = Principal Diagnosis (1) Severe uncontrolled hypertension: (2) Spinal stenosis of lumbar region with radiculopathy: (3) Anxiety: (4) Mild neurocognitive disorder: (5) Chronic kidney disease, stage III (moderate): (6) Panhypopituitarism: Plan This is an 84-year-old gentleman with past medical history that includes CAD s/p recent stent placement 06/2024, hypertension, hyperlipidemia, history of pituitary adenoma surgery, panhypopituitarism (growth hormone deficiency, ACTH deficiency, central hypogonadism, toxic multinodular goiter as per records),hyperprolactinemia as per records, chronic steroid Rx, CKD III, chronic anemia (baseline hemoglobin 12-13), melanoma as per records BPH, anxiety/mood disorder, history of DVT as per records, chronic back pain secondary to LSS, past tobacco abuse who presented to ED today due to anxiety, headache and unable to care for patient in current state. Patient with multiple admissions and ED visits over the past few months as well as a recent inpatient geriatric psych admission for 8 days (08/12-08/20/2024). He presented to ED with significant anxiety, severe headache as well as hypertensive urgency. He was started on a new blood pressure medication amlodipine 5 mg daily. His blood pressure was labile throughout admission and he will need close outpatient follow-up to further titrate medications. Patient does follow with pain management secondary to chronic back pain in setting of lumbar spinal stenosis. He recently transitioned off of gabapentin and was started on Lyrica. They have him on a titration protocol. I am wondering if he was possibly experiencing some gabapentin withdrawal. He reports tapering per protocol. It is encouraged pt follow up with Dr. Lieberman for close blood pressure management. He is encouraged to monitor his blood pressure 2-3x daily and keep a log of this for his PCP to review. He may need ambulatory BP monitoring. On day of discharge pt was in good spirits, his headache had resolved and he was otherwise asymptomatic. He is ready for discharge. Notes For Next Care Provider Recommend close Blood pressure monitoring. Pts sx felt to be from coming off of Gabapentin. He may need ambulatory BP monitoring and secondary hypertension work up if persists. Medication Changes From Visit New Medications: Amlodipine 5 mg by mouth once daily. Next dose due 10/18/24. This is for blood pressure. Side effects to watch out for are constipation and lower extremity swelling. In Regards to your Lyrica - currently you report your pain is controlled. I recommend following pain managements titration plan to increase your Lyrica. Continue all other medications as prescribed. Admission HPI Per Admitting Provider This is an 84-year-old gentleman with past medical history that includes CAD s/p recent stent placement 06/2024, hypertension, hyperlipidemia, history of pituitary adenoma surgery, panhypopituitarism (growth hormone deficiency, ACTH deficiency, central hypogonadism, toxic multinodular goiter as per records),hyperprolactinemia as per records, chronic steroid Rx, CKD III, chronic anemia (baseline hemoglobin 12-13), melanoma as per records BPH, anxiety/mood disorder, history of DVT as per records, chronic back pain secondary to LSS, past tobacco abuse who presented to ED today due to anxiety, headache and unable to care for patient in current state. Patient with multiple admissions and ED visits over the past few months as well as a recent inpatient geriatric psych admission for 8 days (08/12-08/20/2024). Most recently admitted to our service for abdominal pain on Bentyl. During that admission, was seen by psychiatry with MOCA performed and diagnosed with mild neurocognitive disorder. Since discharge home, states patient has been doing better until the past 3 days when he has complained of intermittent pain and has been sleeping more. Patient states headache is frontal and is sharp/stabbing intermittently. Not helped by tylenol in ED. No visual disturbances, focal weakness, photophobia or phonophobia. No associated N/V. Denies any exacerbating or alleviating factors. Admits to feeling anxious right now. does not feel she can care for him at home in this state. No F/C, lightheadedness, CP, SOB, N/V, abd pain, dysuria, diarrhea or constipation. Ordered home medications while in ED. Admission Exam Per Admitting Provider General Appearance: WD/WN, vitals as above, NAD, sitting up in bed, anxious, moving around intermittently, follows commands Head: normocephalic, atraumatic Eyes: normal inspection, PERRL, conjunctivae normal, anicteric sclerae, + blind L eye ENT: external ear and nose normal, oropharynx normal Neck: normal visual inspection, trachea midline, no thyromegaly Respiratory: normal respiratory effort, lungs clear to auscultation, no wheeze, rales, rhonchi. No accessory muscle use Cardiovascular: regular rate, rhythm, normal peripheral pulses, no BLE edema. Vessels: no JVD Chest: normal inspection of chest Abdomen/GI: normal bowel sounds, soft, nontender, no hepatosplenomegaly Extremities/Musculoskeletal: no cyanosis or clubbing, extremities motor strength 5/5 Neurologic: PERRL, EOMI, accommodation nl, no face palsy, no dysarthria, CN's II-XI intact bilaterally and moves all extremities Psychiatric: A+Ox3, + anxious Skin: no rashes, normal color, warm/dry Discharge Exam Gen: WD/WN, elderly, M, NAD, A&O x3 HEENT: Normocephalic, atraumatic, conjunctivae moist, sclerae anicteric, mucous membranes moist. Lung: Clear to Auscultation bilaterally, no wheezes/rales/rhonchi Heart: Regular rate, regular rhythm, no murmurs, rubs, or gallops Abdomen: Soft, NT, ND +BS x 4 Extremities: No edema Skin: Warm, no rash, negative turgor. Updated Medication List Medication Instructions Recorded Confirmed Type aspirin 81 mg tablet,delayed 81 mg PO DAILY 08/07/24 10/15/24 History release atorvastatin 40 mg tablet 40 mg PO DAILY 08/07/24 10/15/24 History dicyclomine 20 mg tablet 20 mg PO TID 08/07/24 10/15/24 History dutasteride 0.5 mg-tamsulosin ER 1 cap PO HS 08/07/24 10/15/24 History 0.4 mg capsule ext.release 24hr mphas isosorbide mononitrate 30 mg 30 mg PO QAM 08/07/24 10/15/24 History tablet,extended release 24 hr magnesium 250 mg tablet 250 mg PO QAM 08/07/24 10/15/24 History multivitamin 1 tab PO DAILY 08/07/24 10/15/24 History nitroglycerin 0.4 mg sublingual 0.4 mg sublingual UD 08/07/24 10/15/24 History tablet omeprazole 20 mg capsule,delayed 20 mg PO UD 08/07/24 10/15/24 History release sertraline 100 mg tablet 200 mg PO QAM 08/07/24 10/15/24 History Tums 1 tab PO DIRECTED PRN Other 08/22/24 10/15/24 History doxazosin 4 mg tablet 8 mg PO HS 08/22/24 10/15/24 History quetiapine 25 mg tablet (Seroquel) 25 mg PO HS 08/22/24 10/15/24 History testosterone 1 pump topical QA 09/23/24 10/15/24 History calcium 600 mg-D3 800 unit-mag 40 1 tab PO BID 10/01/24 10/15/24 History [id number]-lmjq-dbvg-max-boron chew tablet (Caltrate 600-D Plus Minerals) docusate sodium 100 mg capsule 200 mg PO QAM 10/01/24 10/15/24 History (Colace) duloxetine 30 mg capsule,delayed 30 mg PO QAM 10/01/24 10/15/24 History release (Cymbalta) ticagrelor 90 mg tablet (Brilinta) 90 mg PO BID 10/01/24 10/15/24 History ferrous sulfate 325 mg (65 mg 325 mg PO QAM 10/08/24 10/15/24 History iron) tablet (Feosol) Probiotic 1 cap PO QAM 10/15/24 10/15/24 History ascorbic acid (vitamin C) 500 mg 500 mg PO QAM 10/15/24 10/15/24 History tablet (Vitamin C) hydrocortisone 5 mg tablet 10 - 20 mg PO UD 10/15/24 10/15/24 History methimazole 5 mg tablet 5 mg PO DAILY 10/15/24 10/15/24 History metoprolol succinate 50 mg 50 mg PO BID 10/15/24 10/15/24 History tablet,extended release 24 hr pregabalin 50 mg capsule 50 mg PO BID 10/15/24 10/15/24 History sucralfate 1 gram tablet 1 g PO DIRECTED PRN Other 10/15/24 10/15/24 History trazodone 150 mg tablet 150 mg PO HS 10/15/24 10/15/24 History amlodipine 5 mg tablet (Norvasc) 5 mg PO QAM #30 tabs 10/17/24 Rx Hospital Stay Data Consultations 10/15/24 09:07 ED Decision to Admit Stat 10/15/24 11:04 Consult Psychiatry Routine 10/15/24 11:05 Consult Neurology Routine Diagnostic Imagining Performed 10/15/24 08:06 CT head/brain wo con Stat Discharge Instructions Given to Patient (Per Discharging Provider) MEDICATION CHANGES: New Medications: Amlodipine 5 mg by mouth once daily. Next dose due 10/18/24. This is for blood pressure. Side effects to watch out for are constipation and lower extremity swelling. In Regards to your Lyrica - currently you report your pain is controlled. I recommend following pain managements titration plan to increase your Lyrica. Continue all other medications as prescribed. SUMMARY OF TEST RESULTS: You were admitted to the hospital with headache and significantly elevated high blood pressure. It is felt that your blood pressure was elevated in setting of acute onset anxiety. Your headache was likely due to your blood pressure. You were started on a new medication, Amlodipine, for your blood pressure. It will take several days to notice improvement of your blood pressure. PENDING TEST RESULTS: None RECOMMENDATIONS FOR FOLLOW-UP: Please follow up with Dr. Lieberman with in 1 week of Discharge. Please monitor your blood pressure 2-3 times daily. Keep a log of this and take it with you to your follow up appointment. Your blood pressure medication may need further adjustment. Please take all medications as prescribed. You are encouraged to follow a low sodium diet to help with your blood pressure. Please continue to follow the titration plan that Pain Management has provided to your regarding your Lyrica. OTHER INSTRUCTIONS: Seek medical attention if you have: * temperature above 101 * chest pain or trouble breathing * abdominal pain, nausea, vomiting * diarrhea, dark stools or bloody stools * any unanswered questions or concerns Call 911 if symptoms are severe. Please take good care of yourself. It has been a pleasure taking care of you. Please take care of yourself. If you have any questions regarding your recent hospitalization please contact [facility] and request Isatu Betlran @ [phone]. Total Time Total Time Spent Total Time Spent (In Minutes): 35
[2024-10-17 10:19] VITALS: BP 116/67; PULSE 64; O2SAT 95
== END 2024-10-17 11:51 | disposition home or self-care (01) ==
LOC: ED 07:46 → 3E 07:46 → SUATTDRO 11:42 → 3E 14:34

== ENCOUNTER 2025-01-10 10:02 | Inpatient (IN) ==
--- OUTSIDE RECORDS SUMMARY | 2025-01-10 10:09 | External Medical Summary | Summary of Care ---
Author Name Unknown Organization [facility] Address [address] [place] [address] Phone [phone] Care Team Providers Care Clinical Data Assistant Name Role Phone Noelle Duron MD Primary Care Provider [phone] Reason for Visit * Reason Onset Date Comments Medication Refill 01/04/2025 Encounter Details Date Type Department Care Team (Late st Contact Info) Description 01/04/2025 Refill [facility] [address] [place] [id number] Noelle Duron MD [address] [place], [place] [id number] Allergies Active Allergy Reactions Criticality Noted Date Comments Lidocaine Itching Low 07/29/2024 documented as of this encounter (statuses as of 01/07/2025) Medications hydrOXYzine HCl 25 MG tablet Take [...] MEQ Oral Tablet Extended Release 2 Active methIMAzole 5 MG Oral Tablet (Tapazole) Take 1 Tablet by mouth in the morning. 4 Active traZODone HCl 150 MG Oral Tablet (Desyrel) TAKE 1 TABLET IN THE EVENING 90 Tablet 3 4 Active Sertraline HCl 100 MG Oral Tablet (Zoloft)Indicat ions:Anxiety Take 2 by mouth daily in the morning 180 Tablet 3 4 Active Ticagrelor 90 MG Oral Tablet (Brilinta) Take 1 Tablet by mouth in the morning and 1 Tablet before bedtime. 4 Active Metoprolol Succinate ER 50 MG Oral Tablet Extended Release 24 Hour (toPROL XL) Take 1 Tablet by mouth in the morning and 1 Tablet before bedtime. 4 Active Bumetanide 1 MG Oral Tablet (Bumex) Take 1 Tablet by mouth in the morning. 90 Tablet 3 4 Active Nitroglycerin 0.4 MG Sublingual Tablet Sublingual (Nitrostat) 1 Tablet. 4 Active QUEtiapine Fumarate 25 MG Oral Tablet (SEROquel) Take 1 Tablet by mouth at bedtime. 30 Tablet 5 4 Active Omeprazole 20 MG Oral Capsule Delayed Release (PriLOSEC) Take 1 Capsule by mouth 2 times a day 30 minutes before morning and evening meals. 180 Capsule 3 5 Active Atorvastatin Calcium 40 MG Oral Tablet (Lipitor) Take 1 Tablet by mouth in the morning. 90 Tablet 3 5 Active Isosorbide Mononitrate ER 30 MG Oral Tablet Extended Release 24 Hour (Imdur) Take 1 Tablet by mouth in the morning. 90 Tablet 3 5 Active Dutasteride-Martel sulosin HCl 0.5-0.4 MG Oral Capsule Take 1 Capsule by mouth at bedtime. 90 Capsule 3 5 Active Pregabalin 50 MG Oral Capsule (Lyrica) Take 1 Capsule by mouth in the morning and 1 Capsule before bedtime. Active amLODIPine Besylate 5 MG Oral Tablet (Norvasc)Indica tions:HTN, goal below 140/90 Take 1.5 Tablets by mouth in the morning. 135 Tablet 3 5 Active Doxazosin Mesylate 4 MG Oral Tablet (Cardura) Take 2 Tablets by mouth at bedtime. 180 Tablet 3 5 Active Acetaminophen-C odeine 300-30 MG Oral Tablet Take 1 Tablet by mouth every 6 hours as needed for Pain, Severe. 30 Tablet 5 Active Dicyclomine HCl 20 MG Oral Tablet (Bentyl) Take 1 tab by mouth three times per day as needed 90 Tablet 3 5 Active DULoxetine HCl 30 MG Oral Capsule Delayed Release Particles (Cymbalta) Take 1 Capsule by mouth daily. 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 without [...] as of this encounter (statuses as of 01/07/2025) Resolved Problems Problem Noted Date Diagnosed Date [...] as of this encounter (statuses as of 01/07/2025) Immunizations Name Administration Dates Next Due COVID-19 mRNA, LNP-s, No Pre serve, 2-Dose Series (Magicblox) 03/30/2022,06/19/2021,11/11/2020,10/21 COVID-19, MRNA-LNP, 24-25, P R, 30MCG/0.3ML, IM, 12YRS AND ABOVE (Pfizer-Comirnaty) 05/25/2024 COVID-19, MRNA-LNP, PF, 30 M CG/0.3 mL, 12 YRS AND ABOVE, IM (PFIZER-Comirnaty) 11/25/2023 Covid-19, Mrna, Lnp-s, Pf, B ivalent, 30 Mcg, IM, 12 yrs and above (Pfizer) 06/15/2022 H1N1 2009 Influenza, IM 10/27/2009 Pneumococcal Conjugate Vacci ne, 20-valent ([id number]) 06/07/2022 Pneumococcal Polysaccharide PPV23 (Pneumovax) 10/22/2006 Season [...] 10 and older)(Boostrix) 06/07/2021 Varicella Zoster Vaccine Elbert lt (Zostavax) 02/26/2007 Zoster Vaccine Recombinant (Shingrix) 08/30/2018 ,02/27/2018 [...] ages 0-17 years) Not on file 02/26/2024 Food Insecurity Answer Date Recorded Within the past 12 months, y ou worried that your food would run out before you got the money to buy more. Never true 02/26/20 24 Within the past 12 months, t he food you bought just didn't last and you didn't have money to get more. Never true 02/26/2024 Do you need food for this week? No 02/26/2024 Sex and Gender Information Value Date Recorded Sex Assigned at Male 01/09/2022 12:25 PM EDT Legal Sex Male 5:04 AM EST Gender Identity Male 01/09/2022 12:25 PM EDT Sexual Orientation Straight 01/09/2022 12 :25 PM EDT documented as of this encounter Miscellaneous Notes * Telephone Encounter - Noelle Duron MD - 01/07/2025 7:51 AM EDTSigned Prescriptions: Disp Refills DULoxetine HCl 30 MG Oral Capsule Delayed *30 Cap*5 Sig: Take 1 Capsule by mouth daily. Authorizing Provider: NOELLE DURON * Telephone Encounter - Daija Beltran [facility] - 01/06/2025 7:41 AM EDTPending Prescriptions: Disp Refills DULoxetine HCl 30 MG Oral Capsule Delayed *30 Cap*0 Sig: Take 1 Capsule by mouth daily. * Telephone Encounter - Daija Beltran [facility] - 01/06/2025 7:40 AM EDT Duloxetine last ordered by Jerry Rowley PA-C Please approve if appropriate Thank You, Daija Beltran [facility] Clinical Pharmacist [facility] [phone] [id number] 01/06/2025, 7:40 AM * Telephone Encounter - Dagoberto Guzmán, solar power installer - 01/04/2025 12:26 PM EDT Pt just received 30 day on 12/26/24, pharmacy and I assume Pt wants script on file for next refill as Pt has no remaining refills at pharmacy. Medication(s) is/are listed as "Historical". Pt confirmed the current dosage, directions, and qty that they are normally prescribed, as reflected in the pending order below. This is also indicated from encounter on 09/21/24. Confirmed patient has been seen within the last year.. Please review and approve if appropriate. Pending Prescriptions: Disp Refills DULoxetine HCl 30 MG Oral Capsule Delayed*30 Cap*0 Sig: Take 1 Capsule by mouth daily. Last Visit: 10/22/2024 (in office), Visit date not found (telemedicine) Next Visit: 04/08/2025 If no future appointments scheduled, and last appointment is greater than a year ago, please schedule patient for a follow-up appointment Last date the medication was ordered: Historical Patient Phone Numbers Labs: Lab Results Component Value Date/Time CREAT 1.3 (H) 08/31/2024 12:24 PM CREAT 1.28 06/27/2022 12:00 AM CREAT 1.1 09/14/2010 08:28 AM POTASSIUM 4.1 08/31/2024 12:24 PM POTASSIUM 4.2 06/27/2022 12:00 AM POTASSIUM 4.3 09/14/2010 08:28 AM TSH 0.36 08/31/2024 12:24 PM TSH 0.04 (L) 05/22/2006 03:45 PM LDL 96 09/25/2023 09:03 AM LDL 134 (H) 09/14/2010 08:28 AM ALT 24 09/25/2023 09:03 AM ALT 24 09/14/2010 08:28 AM documented in this encounter Plan of Treatment Upcoming Encounters Date Type Department Care Team (Late st Contact Info) Description 04/08/2025 2:20 PM EDT Office Visit [facility] [address] [phone] Shalom Lieberman MD [address] [id number] 05/19/2025 11:00 AM EDT Office Visit Urology, [facility] [address] [phone] Cordell Sexton MD [address] [id number] Health Maintenance Due Date Last Done Comments Adult Wellness Visit 03/08/2024 03/08/2023, 03/07/2022, 02/21/2021 COVID-19 Vaccine ( season) 2024 05/25/2024, 11/25/2023, 06/20/2023, Additional history exists CKD PHOS USE SMARTSET 31156 09/25/202409/16, 06/27/2022, 03/07/2022 Albumin/Creatinine Ratio 12/30/2024 12/31/2023, 11/2022 GFR 03/01/2025 08/31/2024, 12/15, 09/25/2023, Additional history exists Depression Screening 08/21/2025 08/21/2024 CKD HGB USE SMARTSET 56524 08/31/202508/31, 08/31/2024, 09/25/2023, Additional history exists DTap/Tdap Vaccines (2 - Td or Tdap) 06/07/2031 06/07/2021, 10/22/2006, 10/22/2006 Zoster Vaccines Completed 08/30/2018, 02/14, 01/28/2018, Additional history exists Pneumococcal Vaccine: 50+ Years Completed 06/07/2022, 09/23/2015, 10/22/2006 Influenza Vaccine [...] on patient's age to complete this topic Meningitis B Vaccine (Bexsero/Trumemba) Aged Out No longer eligible based on patient's age to complete this topic documented as of this encounter Medical Devices Not on filedocumented as of this encounter Care Teams Clinical Data Assistant Relationship Specialty Start Date End Date Noelle Duron MD PCP - General Internal Medicine 03/27/24 documented as of this encounter
--- OUTSIDE RECORDS SUMMARY | 2025-01-10 10:09 | External Medical Summary | Summary of Care ---
Author Name Unknown Organization [facility] Address [address] [place] [address] Phone [phone] Care Team Providers Care [employer] Name Role Phone Noelle Duron MD Primary Care Provider [phone] Reason for Visit * Reason Onset Date Comments Pre Cert/Prior Auth 12/28/2024 Acetaminophe n-codeine Encounter Details Date Type Department Care Team (Late st Contact Info) Description 12/28/2024 Telephone [facility] [address] [facility] [place] [address] Noelle Duron MD [address] [place] [address] Pre Cert/Prior Auth (Acetaminophen-codeine ) Allergies Active Allergy Reactions Criticality Noted Date Comments Lidocaine Itching Low 07/29/2024 documented as of this encounter (statuses as of 12/28/2024) Medications hydrOXYzine HCl 25 MG tablet Take [...] evening meals. 180 Capsule 3 5 Active DULoxetine HCl 30 MG Oral Capsule Delayed Release Particles (Cymbalta) TAKE 1 CAPSULE BY MOUTH ONCE DAILY FOR MOOD 5 Active Atorvastatin Calcium 40 MG Oral Tablet (Lipitor) Take 1 Tablet by mouth in the morning. 90 Tablet 3 5 Active Isosorbide Mononitrate ER 30 MG Oral Tablet Extended Release 24 Hour (Imdur) Take 1 Tablet by mouth in the morning. 90 Tablet 3 5 Active Dutasteride-Tams ulosin HCl 0.5-0.4 MG Oral Capsule Take 1 Capsule by mouth at bedtime. 90 Capsule 3 5 Active Pregabalin 50 MG Oral Capsule (Lyrica) Take 1 Capsule by mouth in the morning and 1 Capsule before bedtime. Active amLODIPine Besylate 5 MG Oral Tablet (Norvasc)Indicat ions:HTN, goal below 140/90 Take 1.5 Tablets by mouth in the morning. 135 Tablet 3 5 Active Doxazosin Mesylate 4 MG Oral Tablet (Cardura) Take 2 Tablets by mouth at bedtime. 180 Tablet 3 5 Active Acetaminophen-Co deine 300-30 MG Oral Tablet Take 1 Tablet by mouth every 6 hours as needed for Pain, Severe. 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 11/08/2024 Dementia due [...] as of this encounter (statuses as of 12/28/2024) Resolved Problems Problem Noted Date Diagnosed Date [...] as of this encounter (statuses as of 12/28/2024) Immunizations Name Administration Dates Next Due COVID-19 mRNA, LNP-s, No Pre serve, 2-Dose Series ([employer]) 03/30/2022,06/19/2021,11/11/2020,10/21 COVID-19, MRNA-LNP, 24-25, P R, 30MCG/0.3ML, IM, 12YRS AND ABOVE (Pfizer-Comirnaty) 05/25/2024 COVID-19, MRNA-LNP, PF, 30 M CG/0.3 mL, 12 YRS AND ABOVE, IM (PFIZER-Comirnaty) 11/25/2023 Covid-19, Mrna, Lnp-s, Pf, B ivalent, 30 Mcg, IM, 12 yrs and above (Pfizer) 06/15/2022 H1N1 2009 Influenza, IM 10/27/2009 Pneumococcal Conjugate Vacci ne, 20-valent ([id number]) 06/07/2022 Pneumococcal Polysaccharide PPV23 (Pneumovax) 10/22/2006 Season [...] Telephone Encounter - Delilah Man LPN - 12/28/2024 9:12 AM EDT Was approved * Telephone Encounter - Delilah Man LPN - 12/28/2024 8:40 AM EDT Started a prior auth through [facility] for Acetaminophen-codeine Wyman# [id number] documented in this encounter Plan of Treatment Upcoming Encounters Date Type Department Care Team (Late st Contact Info) Description 04/08/2025 2:20 PM EDT [facility] [address] [phone] Shalom Lieberman MD [address] [id number] 05/19/2025 11:00 AM EDT Office Visit Urology, [facility] [address] [place] [phone] Cordell Sexton MD [address] [place] [id number] Health Maintenance Due Date Last Done Comments Adult Wellness Visit 03/08/2024 03/08/2023, 03/07/2022, 02/21/2021 COVID-19 Vaccine ( season) 2024 05/25/2024, 11/25/2023, 06/20/2023, Additional history exists CKD PHOS USE SMARTSET 81123 09/25/202409/16, 06/27/2022, 03/07/2022 Albumin/Creatinine Ratio 12/30/2024 12/31/2023, 040 11/2022 GFR 03/01/2025 08/31/2024, 12/15, 09/25/2023, Additional history exists Depression Screening 08/21/2025 08/21/2024 CKD HGB USE SMARTSET 40647 08/31/202508/31, 08/31/2024, 09/25/2023, Additional history exists DTap/Tdap [...] filedocumented as of this encounter Care Teams [employer] Relationship Specialty Start Date End Date Noelle Duron MD PCP - General Internal Medicine 03/27/24 documented as of this encounter
--- OUTSIDE RECORDS SUMMARY | 2025-01-10 10:09 | External Medical Summary | Summary of Care ---
Author Name Unknown Organization [facility] Address [address] [place] [address] Phone [phone] Care Team Providers Care Machine Oiler Name Role Phone Shalom Lieberman MD Primary Care Provider [phone] Reason for Visit * Reason Comments Blood Pressure Check Pt here today due t o stating he has high blood pressure Encounter Details Date Type Department Care Team (Late st Contact Info) Description 01/08/2025 9:40 AM EDT Office Visit [facility] [address] [facility] [facility] [place] [phone] Noelle Duron MD [address] [place] [address] HTN, goal below 140/90*; Risk and functional assessment; Coronary artery disease involving peters[place] coronary artery of [place] heart without angina pectoris; Hyperthyroidism; Moderate episode of recurrent major depressive disorder (HCC); Dementia without behavioral disturbance, psychotic disturbance, mood disturbance, or anxiety, unspecified dementia severity, unspecified dementia type (HCC) Allergies Active Allergy Reactions Criticality Noted Date Comments Lidocaine Itching Low 07/29/2024 documented as of this encounter (statuses as of 01/08/2025) Medications hydrOXYzine HCl 25 MG tablet Take [...] Oral Tablet Extended Release 05/28/20 22 Active methIMAzole 5 MG Oral Tablet (Tapazole) Take 1 Tablet by mouth in the morning. 10/21/19 24 Active traZODone HCl 150 MG Oral Tablet (Desyrel) TAKE 1 TABLET IN THE EVENING 90 Tablet 3 11/12/19 24 Active Sertraline HCl 100 MG Oral Tablet (Zoloft)Indicat ions:Anxiety Take 2 by mouth daily in the morning 180 Tablet 3 11/13/19 24 Active Ticagrelor 90 MG Oral Tablet (Brilinta) Take 1 Tablet by mouth in the morning and 1 Tablet before bedtime. 07/02/20 24 Active Metoprolol Succinate ER 50 MG Oral Tablet Extended Release 24 Hour (toPROL XL) Take 1 Tablet by mouth in the morning and 1 Tablet before bedtime. 07/02/20 24 Active Bumetanide 1 MG Oral Tablet (Bumex) Take 1 Tablet by mouth in the morning. 90 Tablet 3 07/25/20 24 Active Nitroglycerin 0.4 MG Sublingual Tablet Sublingual (Nitrostat) 1 Tablet. 07/23/20 24 Active QUEtiapine Fumarate 25 MG Oral Tablet (SEROquel) Take 1 Tablet by mouth at bedtime. 30 Tablet 5 08/21/20 24 Active Omeprazole 20 MG Oral Capsule Delayed Release (PriLOSEC) Take 1 Capsule by mouth 2 times a day 30 minutes before morning and evening meals. 180 Capsule 3 09/21/19 25 Active Atorvastatin Calcium 40 MG Oral Tablet (Lipitor) Take 1 Tablet by mouth in the morning. 90 Tablet 3 10/12/19 25 Active Isosorbide Mononitrate ER 30 MG Oral Tablet Extended Release 24 Hour (Imdur) Take 1 Tablet by mouth in the morning. 90 Tablet 3 10/12/19 25 Active Dutasteride-Martel sulosin HCl 0.5-0.4 MG Oral Capsule Take 1 Capsule by mouth at bedtime. 90 Capsule 3 10/19/19 25 Active Pregabalin 50 MG Oral Capsule (Lyrica) Take 1 Capsule by mouth in the morning and 1 Capsule before bedtime. Active amLODIPine Besylate 5 MG Oral Tablet (Norvasc)Indica tions:HTN, goal below 140/90 Take 1.5 Tablets by mouth in the morning. 135 Tablet 3 11/20/19 25 Active Doxazosin Mesylate 4 MG Oral Tablet (Cardura) Take 2 Tablets by mouth at bedtime. 180 Tablet 3 12/08/19 25 Active Acetaminophen-C odeine 300-30 MG Oral Tablet Take 1 Tablet by mouth every 6 hours as needed for Pain, Severe. 30 Tablet 12/22/19 25 Active Dicyclomine HCl 20 MG Oral Tablet (Bentyl) Take 1 tab by mouth three times per day as needed 90 Tablet 3 12/22/19 25 Active DULoxetine HCl 30 MG Oral Capsule Delayed Release Particles (Cymbalta) Take 1 Capsule by mouth daily. 30 Capsule 5 01/08/20 25 Active Lisinopril 20 MG Oral Tablet (Prinivil) Take 1 Tablet by mouth in the morning. 90 Tablet 3 01/09/20 25 Active Lisinopril 40 MG Oral Tablet Take 1 Tablet by mouth in the morning. 90 Tablet 3 01/09/20 25 025 Discontinued Lisinopril 20 MG Oral Tablet (Prinivil) Take 1 Tablet by mouth in the morning. 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 Coronary artery disease invo lving petersburg coronary artery of [place] heart without angina pectoris 11/08/2024 Dementia without behavioral disturbance, psychotic disturbance, mood disturbance, or anxiety 08/21/2024 Delirium 08/21/2024 Chronic kidney disease, stage [...] as of this encounter (statuses as of 01/08/2025) Resolved Problems Problem Noted Date Diagnosed Date [...] as of this encounter (statuses as of 01/08/2025) Immunizations Name Administration Dates Next Due COVID-19 mRNA, LNP-s, No Pre serve, 2-Dose Series ([employer] 03/30/2022,06/19/2021,11/11/2020,10/21 COVID-19, MRNA-LNP, 24-25, P R, 30MCG/0.3ML, IM, 12YRS AND ABOVE ([employer]) 05/25/2024 COVID-19, MRNA-LNP, PF, 30 M CG/0.3 mL, 12 YRS AND ABOVE, IM ([email or web address]) 11/25/2023 Covid-19, Mrna, Lnp-s, Pf, B ivalent, 30 Mcg, IM, 12 yrs and above ([employer] 06/15/2022 H1N1 2009 Influenza, IM 10/27/2009 Pneumococcal Conjugate Vacci ne, 20-valent ([id number]) 06/07/2022 Pneumococcal Polysaccharide PPV23 (Pneumovax) 10/22/2006 Season [...] Passive Smoke Exposure: Never Smokeless Tobacco: Never Tobacco Cessation:Counseling Given: No Comments:quit in 1968 Alcohol Use Standard Drinks/Week [...] Sign Reading Time Taken Comments Blood Pressure 156/71 01/08/2025 9:50 AM EDT Pulse 72 01/08/2025 9:47 AM EDT Temperature 36.6 °C (97.9 °F) 01/08/2025 9:47 AM ED T Respiratory Rate 16 01/08/2025 9:47 AM EDT Oxygen Saturation 98% 01/08/2025 9:47 AM EDT Inhaled Oxygen Concentration - - Weight 79 kg (174 lb 1.6 oz) 01/08/2025 9:47 AM EDT Height - - Body Mass Index 27.27 09/28/2024 12:49 PM EST documented in this encounter Patient Instructions * Patient Instructions* Delilah Man LPN - 01/08/2025 9:51 AM EDT Patient Instructions - Fall Prevention (This education [...] you get older, falls are more likely. That’s because your reaction time slows. Your muscles [...] bedroom and the bathroom [employer] Patient Education Copyright© 2008 - 2010 José except where otherwise [...] health, you may need to start slowly. Don’t let that stop you. Even small amounts of exercise can help you. Be sure to talk to yourhealthcare provider before starting any exercise program. Improve Balance Many types of exercise can help improve balance. Douglas chi and yoga are good examples. Here’s another one to try. You can do [...] repeat 5 times. Switch legs. Build Strength “Resistance” exercises help build strength. You can do [...] the other arm. Build Your Staying Power “Aerobic” exercises make your heart and lungs stronger [...] at least 3 times a week. You don’t have to do 30 minutes in one [...] 10 times. Repeat this throughout the day. [employer] Patient Education Copyright© 2008 - 2010 [employer] except where otherwise noted. Preventing Falls: Moving Safely Using a Cane or Walker (This education is for all patients over 65 regardless of symptoms) Keep the cane away from your feet so you don’t trip. A walking aid, such as a cane or walker, can help you stay more independent and avoid falls. Remember to keep your walking aid within easy reach when you’re in a chair or in bed. And learn how to use it safely so you don’t injure yourself. Using a Cane If you have a stronger side, hold the cane on that side. Get your balance. Move the cane and your weaker leg forward. Support your weight on both the cane and your weaker side. Step with your stronger leg. Start again from step 1. If you’re using a folding walker, be sure you know how to lock it open. Check that it’s locked open before each use. Using a Walker Roll the walker (or lift it, if you’re using one without wheels) forward about 12 [...] covers. Move slowly from room to room. Don’t chu. Sit down to get dressed. Use a janis pack or backpack to keep your hands free. Get help for jobs that mean climbing, even on a stepstool. [employer] Patient Education Copyright© 2008 - 2010 José except where otherwise noted. Treating Urinary Incontinence [...] Progress Notes * Noelle Duron MD - 01/08/2025 10:03 AM EDT Subjective Kai Wilkerson is a 84 year old male. Chief Complaint Patient presents with Blood Pressure Check Pt here today due to stating he has high blood pressure HPI: Text in this note was generated using an Startpack documentation service. I discussed the use of a device to record and summarize our discussion today. All persons present during the encounter consented to its use History of Present Illness The patient, with a history of hypertension, coronary artery disease, and kidney disease, presents with elevated blood pressure readings at home, often with systolic values around 170. He reports that his blood pressure has been slightly higher than usual. He has been on lisinopril for years, whichhad previously kept his blood pressure under control, but he believes it has been switched out for a nother medication. He is also taking amlodipine 7.5mg, Bumex 1mg daily, Imdur, and metoprolol 50mg.He has a history of heart attack and has had at least three stents placed. He has been drinking lots of water and has stopped drinking diet soda. He also reports constant bruising, which he believes is a result of his medication. Not taking lisinopril based on med list which was stopped last fall Slightly memory deficit on certain details PMH: Patient Active Problem List Diagnosis HTN, [...] Chronic kidney disease, stage 3a (HCC) Dementia without behavioral disturbance, psychotic disturbance, mood disturbance, or anxiety (HCC) Delirium Spinal stenosis of lumbar region with neurogenic claudication LARRY (generalized anxiety disorder) Panhypopituitarism (HCC) Coronary artery disease involving p[place] coronary artery of [place] heart without angina pectoris Moderate episode of recurrent major depressive disorder (HCC) Current Outpatient Medications Medication Sig Dispense Refill [...] M20 20 MEQ Oral Tablet Extended Release methIMAzole 5 MG Oral Tablet (Tapazole) Take 1 Tablet by mouth in the morning. traZODone HCl 150 MG Oral Tablet (Desyrel) TAKE 1 TABLET IN THE EVENING 90 Tablet 3 Sertraline HCl 100 MG Oral Tablet (Zoloft) Take 2 by mouth daily in the morning 180 Tablet 3 Ticagrelor 90 MG Oral Tablet (Brilinta) Take 1 Tablet by mouth in the morning and 1 Tablet before bedtime. Metoprolol Succinate ER 50 MG Oral Tablet Extended Release 24 Hour (toPROL XL) Take 1 Tablet by mouth in the morning and 1 Tablet before bedtime. Bumetanide 1 MG Oral Tablet (Bumex) Take 1 Tablet by mouth in the morning. 90 Tablet 3 Nitroglycerin 0.4 MG Sublingual Tablet Sublingual (Nitrostat) 1 Tablet. QUEtiapine Fumarate 25 MG Oral Tablet (SEROquel) Take 1 Tablet by mouth at bedtime. 30 Tablet 5 Omeprazole 20 MG Oral Capsule Delayed Release (PriLOSEC) Take 1 Capsule by mouth 2 times a day 30 minutes before morning and evening meals. 180 Capsule 3 Atorvastatin Calcium 40 MG Oral Tablet (Lipitor) Take 1 Tablet by mouth in the morning. 90 Tablet 3 Isosorbide Mononitrate ER 30 MG Oral Tablet Extended Release 24 Hour (Imdur) Take 1 Tablet by mouthin the morning. 90 Tablet 3 Dutasteride-Tamsulosin HCl 0.5-0.4 MG Oral Capsule Take 1 Capsule by mouth at bedtime. 90 Capsule 3 Pregabalin 50 MG Oral Capsule (Lyrica) Take 1 Capsule by mouth in the morning and 1 Capsule before bedtime. amLODIPine Besylate 5 MG Oral Tablet (Norvasc) Take 1.5 Tablets by mouth in the morning. 135 Tablet3 Doxazosin Mesylate 4 MG Oral Tablet (Cardura) Take 2 Tablets by mouth at bedtime. 180 Tablet 3 Acetaminophen-Codeine 300-30 MG Oral Tablet Take 1 Tablet by mouth every 6 hours as needed for Pain, Severe. 30 Tablet 0 Dicyclomine HCl 20 MG Oral Tablet (Bentyl) Take 1 tab by mouth three times per day as needed 90 Tablet 3 DULoxetine HCl 30 MG Oral Capsule Delayed Release Particles (Cymbalta) Take 1 Capsule by mouth daily. 30 Capsule 5 Lisinopril 20 MG Oral Tablet (Prinivil) Take 1 Tablet by mouth in the morning. 90 Tablet 3 No current facility-administered medications for this visit. [...] DIAGNOSTIC performed byWang Salazar MD at ENDOSCOPY [facility] LUMBAR / SACRAL EPIDURAL, SINGLE LEVEL 07/17/2021 INJECTION TRANSFORAMINAL EPIDURAL LUMBAR OR SACRAL performed by Eduardo Pineda DO at OR [facility] LUMBAR / SACRAL EPIDURAL, SINGLE LEVEL 09/30/2023 INJECTION TRANSFORAMINAL EPIDURAL LUMBAR OR SACRAL performed by Aj Mchugh DO at OR [facility] REMOVAL OF PITUITARY GLAND OR TUMOR 2019 Review of patient's allergies indicates: Allergen Reactions Lidocaine Itching Family History Problem Relation Name Age of Onset Heart Disorder Mother [place] - 70's Heart Disorder Father chf - [...] Resource Strain: Low Risk (07/21/2024) Received from [facility] ([facility]) Financial Resource Strain Sometimes people find that their income does not quite cover their living costs. In the last 12 months, has this happened to you?: No What is your current work situation? 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) Food Insecurity: Low Risk (07/21/2024) Received from [facility] ([facility]) Food Insecurity Within the past 12 months we worried whether our food would run out before we got the money to buy more.: Never true Within the past 12 months the food we bought just didn't last and we didn't have money to get more.: Never true Transportation Needs: Low Risk (07/21/2024) Received from [facility] ([facility]) Transportation Has a lack of transportation kept you from medical appointments, meetings, work, or from getting things needed for daily living. Check all that apply. : No Social Connections: Low Risk (07/21/2024) Received from [facility] ([facility]) Social Connections How often do you feel isolated from others?: Hardly ever Housing Stability: Low Risk (07/21/2024) Received from [facility] ([facility]) Housing Stability Are you worried about losing your housing?: No In the past 12 months has the electric, gas, oil, or water company threatened to shut off services in your home?: No Review of Systems Constitutional: Negative for activity change, appetite change, chills, diaphoresis, fatigue, fever and unexpected weight change. Respiratory: Negative for cough, chest tightness, shortness of breath and wheezing. Cardiovascular: Negative for chest pain, palpitations and leg swelling. Gastrointestinal: Negative for abdominal distention, abdominal pain, nausea and vomiting. Psychiatric/Behavioral: Negative for agitation and behavioral problems. Objective BP 156/71 | Pulse 72 | Temp 97.9 °F (36.6 °C) (Tympanic) | Resp 16 | Wt 174 lb 1.6 oz (79 kg) | SpO2 98% | BMI 27.27 kg/m² | BSA 1.93 m² Physical Exam Constitutional: General: He is not in acute distress. Appearance: Normal appearance. He is not ill-appearing, toxic-appearing or diaphoretic. HENT: Head: Normocephalic and atraumatic. Nose: Nose normal. Eyes: Extraocular Movements: Extraocular movements intact. Cardiovascular: Rate and Rhythm: Normal rate and regular rhythm. Pulses: Normal pulses. Heart sounds: Normal heart sounds. No murmur heard. Pulmonary: Effort: Pulmonary effort is normal. No respiratory distress. Breath sounds: Normal breath sounds. No stridor. No wheezing, rhonchi or rales. Chest: Chest wall: No tenderness. Musculoskeletal: General: Normal range of motion. Cervical back: Normal range of motion. Right lower leg: No edema. Left lower leg: No edema. Neurological: General: No focal deficit present. Mental Status: He is alert and oriented to person, place, and time. Psychiatric: Behavior: Behavior normal. ASSESSMENT/PLAN: HTN, goal below 140/90 (Primary) - COMPREHENSIVE METABOLIC PANEL; Future; Expected date: 01/08/2025 - CBC WITH WBC DIFFERENTIAL; Future; Expected date: 01/08/2025 - TSH WITH FREE T4 IF INDICATED; Future; Expected date: 01/08/2025 Risk and functional assessment Coronary artery disease involving p[place] coronary artery of [place] heart without angina pectoris Hyperthyroidism - TSH WITH FREE T4 IF INDICATED; Future; Expected date: 01/08/2025 Moderate episode of recurrent major depressive disorder (HCC) Dementia without behavioral disturbance, psychotic disturbance, mood disturbance, or anxiety, unspecified dementia severity, unspecified dementia type (HCC) Other orders - Lisinopril 20 MG Oral Tablet (Prinivil); Take 1 Tablet by mouth in the morning. Check-out note: 2 wks for nurse visit for BP check and labs Assessment & Plan Coronary artery disease with history of heart attack Post-heart attack with stents. High risk for future cardiovascular events. No cardiomyopathy but risk due to left ventricular hypertrophy. Mild hypokinesis in inferior wall. Normal ejection fraction and contractility. - Continue aspirin and Brilinta. - Continue metoprolol, resume lisinopril 20 mg daily. - Follow up with woodwind instruments inspector every six months. - Order echocardiogram at next woodwind instruments inspector visit. - Encourage hydration. Hypertension Elevated blood pressure with home readings up to 170 systolic. Previously controlled with lisinopril, now resumed to improve control and prevent cardiac complications. - Resume lisinopril 20 mg daily. - Schedule nurse visit in two weeks for blood pressure check. - Encourage hydration. Chronic kidney disease, stage 3 Stage 3 CKD with creatinine 1.3 and GFR 57. Single functioning kidney, function well-managed. - Recheck creatinine in two weeks after increasing lisinopril. - Encourage hydration and avoidance of diet soda. Noelle Duron MD documented in this encounter Nursing Notes * Delilah Man LPN - 01/08/2025 9:41 AM EDT Chief Complaint Patient presents with Blood Pressure Check Pt here today due to stating he has high blood pressure documented in this encounter Plan of Treatment Upcoming Encounters Date Type Department Care Team (Late st Contact Info) Description 01/22/2025 11:30 AM EDT Nurse Only Ancillary Department, Kash [address] [phone] Nurse Kash [address] [id number] 04/08/2025 2:20 PM EDT Office Visit Family [facility], Kash Arguello [address] [phone] Shalom Lieberman MD [address] [id number] 05/19/2025 11:00 AM EDT Office Visit Urology, [facility] [address] [place] [phone] Cordell Sexton MD [address] [place] [id number] Scheduled Orders Name Type Priority Associated Diagnoses Orde r Schedule COMPREHENSIVE METABOLIC PANEL Lab Routine HTN, goal below 140/90 Expected: 01/08/2025 (Approximate), Expires: 01/08/2026 CBC WITH WBC DIFFERENTIAL Lab Routine HTN, goal below 140/90 Expected: 01/08/2025 (Approximate), Expires: 01/08/2026 TSH WITH FREE T4 IF INDICATED Lab Routine HTN, goal below 140/90 Hyperthyroidism Expected: 01/08/2025 (Approximate), Expires: 01/08/2026 Health Maintenance Due Date Last Done Comments Adult Wellness Visit 03/08/2024 03/08/2023, 03/07/2022, 02/21/2021 COVID-19 Vaccine ( season) 2024 05/25/2024, 11/25/2023, 06/20/2023, Additional history exists CKD PHOS USE SMARTSET 47105 09/25/202409/16, 06/27/2022, 03/07/2022 Albumin/Creatinine Ratio 12/30/2024 12/31/2023, 0411/2022 GFR 03/01/2025 08/31/2024, 12/15, 09/25/2023, Additional history exists Depression Monitoring 08/21/2025 08/21/2024 CKD HGB USE SMARTSET 42996 08/31/202508/31, 08/31/2024, 09/25/2023, Additional history exists DTap/Tdap [...] as of this encounter Visit Diagnoses Diagnosis HTN, goal below 140/90- Primary Unspecified essential hypertension Risk and functional assessment Screening for unspecified condition Coronary artery disease involving p[place] coronary artery of [place] heart without angina pectoris Hyperthyroidism Thyrotoxicosis without mention of goiter or other cause, without mention of thyrotoxic crisis or storm Moderate episode of recurrent major depressive disorder (HCC) Dementia without behavioral disturbance, psychotic disturbance, mood disturbance, or anxiety, unspecified dementia severity, unspecified dementia type (HCC) documented in this encounter Care Teams Machine Oiler Relationship Specialty Start Date End Date Shalom Lieberman MD [address] [id number] PCP - General Family Medicine 01/08/25 documented as of this encounter"
--- OUTSIDE RECORDS SUMMARY | 2025-01-10 10:09 | External Medical Summary | Summary of Care ---
Author Name Unknown Organization [facility] Address [address] [place] [address] Phone [phone] Care Team Providers Care Direct Mail Manager Name Role Phone Noelle Duron MD Primary Care Provider [phone] Reason for Visit * Reason Onset Date Comments Medication Refill 12/19/2024 Encounter Details Date Type Department Care Team (Late st Contact Info) Description 12/19/2024 Refill [facility] [address] [place] [phone] Noelle Duron MD [address] [place], [place] [phone] Allergies Active Allergy Reactions Criticality Noted Date Comments Lidocaine Itching Low 07/29/2024 documented as of this encounter (statuses as of 12/21/2024) Medications hydrOXYzine HCl 25 MG tablet Take [...] evening meals. 180 Capsule 3 5 Active Dicyclomine HCl 20 MG Oral Tablet (Bentyl) 5 Active DULoxetine HCl 30 MG Oral [...] for Pain, Severe. 30 Tablet 5 Active Acetaminophen-C odeine 300-30 MG Oral Tablet Take 1 Tablet by mouth every 6 hours as needed for Pain, Severe. 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 Coronary artery disease invo lving [place] coronary artery of [place] heart without angina pectoris 11/08/2024 Dementia due [...] as of this encounter (statuses as of 12/21/2024) Resolved Problems Problem Noted Date Diagnosed Date [...] as of this encounter (statuses as of 12/21/2024) Immunizations Name Administration Dates Next Due COVID-19 mRNA, LNP-s, No Pre serve, 2-Dose Series ([employer]) 03/30/2022,06/19/2021,11/11/2020,10/21 COVID-19, MRNA-LNP, 24-25, P R, 30MCG/0.3ML, IM, 12YRS AND ABOVE (Pfizer-Comirnaty) 05/25/2024 COVID-19, MRNA-LNP, PF, 30 M CG/0.3 mL, 12 YRS AND ABOVE, IM (PFIZER-Comirnaty) 11/25/2023 Covid-19, Mrna, Lnp-s, Pf, B ivalent, 30 Mcg, IM, 12 yrs and above ([employer]) 06/15/2022 H1N1 2009 Influenza, IM 10/27/2009 Pneumococcal Conjugate Vacci ne, 20-valent ([id number]) 06/07/2022 Pneumococcal Polysaccharide PPV23 (Pneumovax) 10/22/2006 Season [...] Telephone Encounter - Noelle Duron MD - 12/21/2024 10:21 AM EDTSigned Prescriptions: Disp Refills Acetaminophen-Codeine 300-30 MG Oral Bjogng69 Tab*0 Sig: Take 1 Tablet by mouth every 6 hours as needed for Pain, Severe. Authorizing Provider: NOELLE DURON * Telephone Encounter - Kathy Shepherd [facility] - 12/21/2024 10:13 AM EDT Pending Prescriptions: Disp Refills Acetaminophen-Codeine 300-30 MG Oral Jpodot00 Tab*0 Sig: Take 1 Tablet by mouth every 6 hours as needed for Pain, Severe. * Telephone Encounter - Kathy Shepherd [facility] - 12/21/2024 10:13 AM EDT I have reviewed the patient’s controlled substance dispensing history in the Prescription Drug Monitoring Program in compliance with the [facility] regulations before prescribing a controlled substance. PDMP checked on 12/21/2024. Pending Prescriptions: Disp Refills Acetaminophen-Codeine 300-30 MG Oral Tabl*30 Tab*0 Sig: Take 1 Tablet by mouth every 6 hours as needed for Pain, Severe. Last Visit: 10/22/2024 (in office), Visit date not found (telemedicine) Next Visit: 04/08/2025 Date medication was last filled: 10/23/24 Date medication is due for refill: 10/30/24 [facility] [id number] [address] JAQUELINE VELÁSQUEZ Is this request for a controlled substance? Yes and Urine Drug Screen Not completed Toxicology results: No results found for this or any previous visit. Please approve if appropriate. Thank you, Kathy Shepherd, PharmD Clinical Pharmacist [facility] ([facility]) [phone] 12/21/2024, 10:13 AM documented in this encounter Plan of Treatment Upcoming Encounters Date Type Department Care Team (Late st Contact Info) Description 04/08/2025 2:20 PM EDT Office Visit [facility], [facility] [address] [phone] Shalom Lieberman MD [address] [phone] 05/19/2025 11:00 AM EDT Office Visit Urology, [facility] [address] [phone] Cordell Sexton MD [address] [address] Health Maintenance Due Date Last Done Comments Adult Wellness Visit 03/08/2024 03/08/2023, 03/07/2022, 02/21/2021 COVID-19 Vaccine ( season) 2024 05/25/2024, 11/25/2023, 06/20/2023, Additional history exists CKD PHOS USE SMARTSET 52600 09/25/202409/16, 06/27/2022, 03/07/2022 Albumin/Creatinine Ratio 12/30/2024 12/31/2023, 11/2022 GFR 03/01/2025 08/31/2024, 12/15, 09/25/2023, Additional history exists Depression Screening 08/21/2025 08/21/2024 CKD HGB USE SMARTSET 90598 08/31/202508/31, 08/31/2024, 09/25/2023, Additional history exists DTap/Tdap [...] filedocumented as of this encounter Care Teams Direct Mail Manager Relationship Specialty Start Date End Date Noelle Duron MD PCP - General Internal Medicine 03/27/24 documented as of this encounter
--- OUTSIDE RECORDS SUMMARY | 2025-01-10 10:09 | External Medical Summary | Summary of Care ---
Author Name Unknown Organization [facility] Address [address] [place] [address] Phone [phone] Care Team Providers Care Drafter Automotive Design Layout Name Role Phone Noelle Duron MD Primary Care Provider [phone] Reason for Visit * Reason Onset Date Comments Pre Cert/Prior Auth 12/28/2024 Acetaminophe n-codeine Encounter Details Date Type Department Care Team (Late st Contact Info) Description 12/28/2024 Telephone [facility] [address] [facility] [place] [phone] Noelle Duron MD [address] [place] [address] Pre Cert/Prior Auth (Acetaminophen-codeine ) Allergies Active [...] 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 11/08/2024 Dementia due [...] mRNA, LNP-s, No Pre serve, 2-Dose Series ([employer]) 03/30/2022,06/19/2021,11/11/2020,10/21 COVID-19, MRNA-LNP, 24-25, P R, 30MCG/0.3ML, IM, 12YRS AND ABOVE (Pfizer-Comirnaty) 05/25/2024 COVID-19, MRNA-LNP, PF, 30 M CG/0.3 mL, 12 YRS AND ABOVE, IM (PFIZER-Comirnaty) 11/25/2023 Covid-19, Mrna, Lnp-s, Pf, B ivalent, 30 Mcg, IM, 12 yrs and above (Pfizer) 06/15/2022 H1N1 2009 Influenza, IM 10/27/2009 Pneumococcal Conjugate Vacci ne, 20-valent ([id number]) 06/07/2022 Pneumococcal Polysaccharide PPV23 (Pneumovax) 10/22/2006 Season [...] prior auth through CMM's for Acetaminophen-codeine Wyman# [id number] documented in this encounter Plan of Treatment Upcoming Encounters Date Type Department Care Team (Late st Contact Info) Description 04/08/2025 2:20 PM EDT [facility] [place] [place] [address] [phone] Shalom Lieberman MD [address] [address] 05/19/2025 11:00 AM EDT Office Visit Urology, [facility] [address] [place] [phone] Cordell Sexton MD [address] [address] Health Maintenance Due Date Last Done Comments Adult Wellness Visit 03/08/2024 03/08/2023, 03/07/2022, 02/21/2021 COVID-19 Vaccine ( season) 2024 05/25/2024, 11/25/2023, 06/20/2023, Additional history exists CKD PHOS USE SMARTSET 31668 09/25/202409/16, 06/27/2022, 03/07/2022 Albumin/Creatinine Ratio 12/30/2024 12/31/2023, 040 11/2022 GFR 03/01/2025 08/31/2024, 12/15, 09/25/2023, Additional history exists Depression Screening 08/21/2025 08/21/2024 CKD HGB USE SMARTSET 86496 08/31/202508/31, 08/31/2024, 09/25/2023, Additional history exists DTap/Tdap [...] filedocumented as of this encounter Care Teams Drafter Automotive Design Layout Relationship Specialty Start Date End Date Noelle Duron MD PCP - General Internal Medicine 03/27/24 documented as of this encounter
--- OUTSIDE RECORDS SUMMARY | 2025-01-10 10:10 | External Medical Summary | Summary of Care ---
Author Name Unknown Organization [facility] Address [address] [place] [address] Phone [phone] Care Team Providers Care Wildlife Ecologist Name Role Phone Noelle Duron MD Primary Care Provider [phone] Reason for Visit * Reason Onset Date Comments Med Request 10/19/2024 Encounter Details Date Type Department Care Team (Late st Contact Info) Description 10/19/2024 Telephone [facility] [address] [facility] [place] [phone] Noelle Duron MD [address] [place], [place] [phone] Med Request Allergies Active Allergy Reactions Criticality Noted Date Comments Lidocaine Itching Low 07/29/2024 documented as of this encounter (statuses as of 10/31/2024) Medications hydrOXYzine HCl 25 MG tablet Take [...] Apply topically to affected area daily . 12/29/202 1 Active Vitamin C 500 MG Oral [...] MEQ Oral Tablet Extended Release 2 Active Doxazosin Mesylate 4 MG Oral [...] the morning. 90 Tablet 3 5 Active documented as of this encounter (statuses as of 10/31/2024) Active Problems Problem Noted Date Diagnosed Date [...] as of this encounter (statuses as of 10/31/2024) Resolved Problems Problem Noted Date Diagnosed Date [...] as of this encounter (statuses as of 10/31/2024) Immunizations Name Administration Dates Next Due COVID-19 mRNA, LNP-s, No Pre serve, 2-Dose Series ([employer]) 03/30/2022,06/19/2021,11/11/2020,10/21 COVID-19, MRNA-LNP, 24-25, P R, 30MCG/0.3ML, IM, 12YRS AND ABOVE ([employer] 05/25/2024 COVID-19, MRNA-LNP, PF, 30 M CG/0.3 mL, 12 YRS AND ABOVE, IM ([employer]) 11/25/2023 Covid-19, Mrna, Lnp-s, Pf, B ivalent, 30 Mcg, IM, 12 yrs and above ([employer]) 06/15/2022 H1N1 2009 Influenza, IM 10/27/2009 Pneumococcal Conjugate Vacci ne, 20-valent ([id number]) 06/07/2022 Pneumococcal Polysaccharide PPV23 (Pneumovax) 10/22/2006 Season [...] Telephone Encounter - Haylie Ortega LPN - 10/31/2024 8:30 AM EST I called and spoke with patient and his and they are going to contact psych for refills. * Telephone Encounter - Noelle Duron MD - 10/30/2024 3:14 PM EST If he is following up with psych, I would advised to get cymbalta and zoloft refill from his psych If cymbalta is a new medication, I would wait until pt sees psychiatrist as out patient * Telephone Encounter - Najma Fung LPN - 10/30/2024 3:08 PM EST Spoke to patient and she states that he was given this at the last hospital visit and that thepsychiatrist is aware. Are you willing to send in this script? * Telephone Encounter - Noelle Duron MD - 10/30/2024 2:42 PM EST If he is taking zolfot 100 mg daily, not sure he needs to take cymbalta too I think pt should discuss with his psych if still following up * Telephone Encounter - Gilda Valencia PHARM Tech - 10/19/2024 10:10 AM EST Pt calling requesting the following medication below that is listed as "Historical". The following information was provided: Medication Name: DULoxetine HCl 30 MG Oral Capsule Delayed Release Particles (Cymbalta) Strength: 30MG Directions: TAKE 1 CAPSULE BY MOUTH ONCE DAILY FOR MOOD Preferred Quantity: 30 Previous Prescriber: [facility] Kash Munoz Preferred Pharmacy: [facility] [address] [place] [address] [address] Feng [address] [phone] Please review and approve if appropriate. Thank you, Gilda Valencia, Pairer Odds Pairer Odds I [facility] ([facility]) 10/19/2024,10:10 AM documented in this encounter Plan of Treatment Upcoming Encounters Date Type Department Care Team (Late st Contact Info) Description 04/08/2025 2:20 PM EDT Office Visit [facility], Kash Arguello [address] [phone] Shalom Lieberman MD [address] [address] 05/19/2025 11:00 AM EDT Office Visit Urology, [facility] [address] [address] Cordell Sexton MD [address] [address] Health Maintenance Due Date Last Done Comments Adult Wellness Visit 03/08/2024 03/08/2023, 03/07/2022, 02/21/2021 COVID-19 Vaccine ( season) 2024 05/25/2024, 11/25/2023, 06/20/2023, Additional history exists CKD PHOS USE SMARTSET 16745 09/25/202409/16, 06/27/2022, 03/07/2022 Albumin/Creatinine Ratio 12/30/2024 12/31/2023, 11/2022 GFR 03/01/2025 08/31/2024, 12/15, 09/25/2023, Additional history exists Depression Screening 08/21/2025 08/21/2024 CKD HGB USE SMARTSET 91925 08/31/202508/31, 08/31/2024, 09/25/2023, Additional history exists DTap/Tdap [...] filedocumented as of this encounter Care Teams Wildlife Ecologist Relationship Specialty Start Date End Date Noelle Duron MD PCP - General Internal Medicine 03/27/24 documented as of this encounter
--- OUTSIDE RECORDS SUMMARY | 2025-01-10 10:10 | External Medical Summary | Summary of Care ---
Author Name Unknown Organization [facility] Address [address] [place] [address] Phone [phone] Care Team Providers Care Pulp Mill Team Leader Name Role Phone Noelle Duron MD Primary Care Provider [phone] Reason for Visit * Reason Onset Date Comments Hospital Follow-Up Pt here today for a hospital discharge visit. Pt would like his BP home cuff checked today Hospital Follow-Up 10/22/2024 Hospital Follow-Up 11/08/2024 Encounter Details Date Type Department Care Team (Late st Contact Info) Description 10/22/2024 11:20 AM EST [facility] [address] [phone] Shalom Lieberman MD [address] [address] HTN, goal below 140/90*; Chronic kidney disease, stage 3a (HCC); Risk and functional assessment; Hospital discharge follow-up; Spinal stenosis of lumbar region with neurogenic claudication; LARRY (generalized anxiety disorder); Panhypopituitarism (HCC); Coronary artery disease involving [place] coronary artery of [place] heart without angina pectoris Allergies Active Allergy Reactions Criticality Noted Date Comments Lidocaine Itching Low 07/29/2024 documented as of this encounter (statuses as of 11/08/2024) Medications hydrOXYzine HCl 25 MG tablet Take 10 mg by mouth as needed. 9 Active Ferrous Sulfate (IRON) 325 (65 Fe) MG TABS Take by mouth. Act cherise Magnesium 250 MG Tablet Take 1 Tablet by mouth in the morning. Active Multiple Vitamins-Minera ls (MULTIVITAMIN ADULTS 50+) TABS Take by mouth. Activ e Aspirin 81 MG Oral Tablet Delayed Release [...] Tablet (Norvasc)Indica tions:HTN, goal below 140/90 Take 1 Tablet by mouth in the morning. One and a half tabs by mouth daily. 5 Active Lisinopril 20 MG Oral Tablet (Prinivil) Take 1 Tablet by mouth in the morning. 4 10/22/19 25 Discontin ued(Patie nt preferenc e/discont inuation) Potassium Chloride ER 20 MEQ Oral Tablet Extended Release Take 1 Tablet by mouth in the morning. 4 10/22/19 25 Discontin ued(Patie nt preferenc e/discont inuation) Acetaminophen-C odeine 300-30 MG Oral Tablet Take 1 Tablet by mouth every 6 hours as needed for Pain, Severe. 30 Tablet 4 10/21/19 25 Discontin ued(Refil l) Gabapentin 100 MG Oral Capsule (Neurontin) TAKE 1 CAPSULE BY MOUTH IN THE MORNING AND 3 AT BEDTIME FOR MOOD AND NEUROPATHY 4 10/22/19 25 Discontin ued(Patie nt preferenc e/discont inuation) Gabapentin 300 MG Oral Capsule (Neurontin) TAKE 1 CAPSULE BY MOUTH TWICE DAILY FOR MOOD AND NEUROPATHY 5 10/22/19 25 Discontin ued(Patie nt preferenc e/discont inuation) amLODIPine Besylate 5 MG Oral Tablet (Norvasc) Take 1 Tablet by mouth in the morning. 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 11/08/2024 Dementia due [...] as of this encounter (statuses as of 11/08/2024) Resolved Problems Problem Noted Date Diagnosed Date [...] as of this encounter (statuses as of 11/08/2024) Immunizations Name Administration Dates Next Due COVID-19 mRNA, LNP-s, No Pre serve, 2-Dose Series ([employer]) 03/30/2022,06/19/2021,11/11/2020,10/21 COVID-19, MRNA-LNP, 24-25, P R, 30MCG/0.3ML, IM, 12YRS AND ABOVE ([employer]) 05/25/2024 COVID-19, MRNA-LNP, PF, 30 M CG/0.3 mL, 12 YRS AND ABOVE, IM ([employer]) 11/25/2023 Covid-19, Mrna, Lnp-s, Pf, B ivalent, 30 Mcg, IM, 12 yrs and above ([employer]) 06/15/2022 H1N1 2009 Influenza, IM 10/27/2009 Pneumococcal Conjugate Vacci ne, 20-valent ([id number]) 06/07/2022 Pneumococcal Polysaccharide PPV23 (Pneumovax) 10/22/2006 Season [...] Sign Reading Time Taken Comments Blood Pressure 154/82 10/22/2024 11:27 AM EST took pt's blood pressure with his home devise and got 158/79 Pulse 75 10/22/2024 11:27 AM EST Temperature 36.7 °C (98 °F) 10/22/2024 11: 27 AM EST Respiratory Rate 16 10/22/2024 11:2 7 AM EST Oxygen Saturation 96% 10/22/2024 11: 27 AM EST Inhaled Oxygen Concentration - - Weight 79.6 kg (175 lb 8 oz) 10/22/2024 11:27 AM EST Height - - Body Mass Index 27.49 09/28/2024 12:49 PM EST documented in this encounter Patient Instructions * Patient Instructions* Delilah Man LPN - 10/22/2024 11:32 AM EST Patient Instructions - Fall Prevention [...] documented in this encounter Progress Notes * Shalom Lieberman MD - 10/22/2024 12:13 PM EST Subjective: Kai Wilkerson is a 84 year old male here today for Chief Complaint Patient presents with Hospital Follow-Up Pt here today for a hospital discharge visit. Pt would like his BP home cuff checked today Hospital Follow-Up Here for hospital follow up. Admitted to [facility] 10/15/24 - 10/17/24. Admission for increased back pain, elevated bp's, anxiety. Please see d/c summary for full details. BP's remained labile during the hospitalization. It was felt that some of his symptoms may relate to transitioning from gabapentin to lyrica (guided by pain management). He is complaining of issues with restless legs (about once per week). States that he is feeling better today. Past Medical History: Diagnosis Date BPH with [...] DIAGNOSTIC performed byWang Salazar MD at ENDOSCOPY [facility] LUMBAR / SACRAL EPIDURAL, SINGLE LEVEL 07/17/2021 INJECTION TRANSFORAMINAL EPIDURAL LUMBAR OR SACRAL performed by Eduardo Pineda DO at OR [facility] LUMBAR / SACRAL EPIDURAL, SINGLE LEVEL 09/30/2023 INJECTION TRANSFORAMINAL EPIDURAL LUMBAR OR SACRAL performed by Aj Mchugh DO at OR [facility] REMOVAL OF PITUITARY GLAND OR TUMOR 2019 Review of patient's allergies indicates: Allergen Reactions Lidocaine Itching Current Outpatient Medications Medication Sig Dispense Refill [...] M20 20 MEQ Oral Tablet Extended Release Doxazosin Mesylate 4 MG Oral Tablet (Cardura) [...] morning and evening meals. 180 Capsule 3 Dicyclomine HCl 20 MG Oral Tablet (Bentyl) DULoxetine HCl 30 MG Oral Capsule Delayed Release Particles (Cymbalta) TAKE 1 CAPSULE BY MOUTH ONCEDAILY FOR MOOD Atorvastatin Calcium 40 MG Oral Tablet (Lipitor) [...] Besylate 5 MG Oral Tablet (Norvasc) Take 1 Tablet by mouth in the morning. One and a half tabs by mouth daily. Acetaminophen-Codeine 300-30 MG Oral Tablet Take 1 Tablet by mouth every 6 hours as needed for Pain, Severe. 30 Tablet 0 No current facility-administered medications for this visit. Objective: BP 154/82 Comment: took pt's blood pressure with his home devise and got 158/79 | Pulse 75 | Temp 98 °F (36.7 °C) (Infrared ) | Resp 16 | Wt 175 lb 8 oz (79.6 kg) | SpO2 96% | BMI 27.49 kg/m² | BSA 1.94 m² GEN: NAD HEENT: Benign NECK: Supple with no LAD, TM, JVD CHEST: CTA B CV: RRR ABD: Soft, NT/ND, No HSM, NABS EXT: No c,c,e Assessment and Plan: HTN, goal below 140/90 (Primary) - DISCH MED RECON CUR MED LIS -continue current meds and follow BP's at home. Will call in a few weeks for updates. Chronic kidney disease, stage 3a (HCC) - ALBUMIN / CREATININE RATIO, URINE; Future; Expected date: 10/23/2024 -continue to monitor Risk and functional assessment Hospital discharge follow-up Spinal stenosis of lumbar region with neurogenic claudication -continue with pain management. Reviewed transition to lyrica and consider increased dose for restless leg symptoms. LARRY (generalized anxiety disorder) -continue current meds Panhypopituitarism (HCC) -continue with endocrinology. Coronary artery disease involving [place] coronary artery of [place] heart without angina pectoris -no active symptoms. Continue same meds Follow Up: Return for please place follow up on my schedule 10:00 AM 12/15/24 = keep appt in March. | For: please place follow up on my schedule 10:00 AM 12/15/24 = keep appt in March 40 min with pt and chart review. Shalom Lieberman MD * Delilah Man LPN - 10/22/2024 11:32 AM EST Urine albumin/creatinine ratio ordered today. Provider aware. Fall Risk Plan of Care Documentation: - Current medications reconciled Patient encouraged to: - Exercise - Provide education materials for Core strengthening - Utilize assistive/adaptive devices - Provide education materials - Avoid multifocal lenses when walking - Avoid hazards in home - Provide education materials - Maintain a regular toileting schedule Delilah Man LPN 10/22/2024 documented in this encounter Nursing Notes * Delilah Man LPN - 10/22/2024 11:19 AM EST Chief Complaint Patient presents with Hospital Follow-Up Pt here today for a hospital discharge visit. Pt would like his BP home cuff checked today documented in this encounter Plan of Treatment Upcoming Encounters Date Type Department Care Team (Late st Contact Info) Description 04/08/2025 2:20 PM EDT Office Visit [facility] Kash Munoz [address] [phone] Shalom Lieberman MD [address] [address] 05/19/2025 11:00 AM EDT Office Visit Urology, [facility] [address] [place] [address] Cordell Sexton MD [address] [address] Scheduled Orders Name Type Priority Associated Diagnoses Orde r Schedule ALBUMIN / CREATININE RATIO, URINE Lab Routine Chronic kidney disease, stage 3a (HCC) Expected: 10/23/2024, Expires: 10/22/2025 Health Maintenance Due Date Last Done Comments Adult Wellness Visit 03/08/2024 03/08/2023, 03/07/2022, 02/21/2021 COVID-19 Vaccine ( season) 2024 05/25/2024, 11/25/2023, 06/20/2023, Additional history exists CKD PHOS USE SMARTSET 03585 09/25/202409/16, 06/27/2022, 03/07/2022 Albumin/Creatinine Ratio 12/30/2024 12/31/2023, 04/0 11/2022 GFR 03/01/2025 08/31/2024, 12/15, 09/25/2023, Additional history exists Depression Screening 08/21/2025 08/21/2024 CKD HGB USE SMARTSET 75555 08/31/202508/31, 08/31/2024, 09/25/2023, Additional history exists DTap/Tdap [...] goal below 140/90- Primary Unspecified essential hypertension Chronic kidney disease, stage 3a (HCC) Risk and functional assessment Screening for unspecified condition Hospital discharge follow-up Other follow-up examination Spinal stenosis of lumbar region with neurogenic claudication Spinal stenosis, lumbar region, with neurogenic claudication LARRY (generalized anxiety disorder) Generalized anxiety disorder 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
--- OUTSIDE RECORDS SUMMARY | 2025-01-10 10:10 | External Medical Summary | Summary of Care ---
Author Name Unknown Organization [facility] Address [address] [place] [address] Phone [phone] Care Team Providers Care Die Sizer Name Role Phone Noelle Duron MD Primary Care Provider [phone] Reason for Visit * Reason Onset Date Comments Medication Refill 11/16/2024 Encounter Details Date Type Department Care Team (Late st Contact Info) Description 11/16/2024 Telephone [facility] [address] [place] [phone] Shalom Lieberman MD [address] [place], [place] [phone] Medication Refill Allergies Active Allergy Reactions Criticality Noted Date Comments Lidocaine Itching Low 07/29/2024 documented as of this encounter (statuses as of 11/16/2024) Medications hydrOXYzine HCl 25 MG tablet Take [...] morning and 1 Capsule before bedtime. Active Acetaminophen-Co deine 300-30 MG Oral Tablet Take 1 Tablet by mouth every 6 hours as needed for Pain, Severe. 30 Tablet 5 Active amLODIPine Besylate 5 MG Oral Tablet (Norvasc)Indicat ions:HTN, goal below 140/90 Take 1 Tablet by mouth in the morning. One and a half tabs by mouth daily. 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 11/08/2024 Dementia due [...] as of this encounter (statuses as of 11/16/2024) Resolved Problems Problem Noted Date Diagnosed Date [...] as of this encounter (statuses as of 11/16/2024) Immunizations Name Administration Dates Next Due COVID-19 mRNA, LNP-s, No Pre serve, 2-Dose Series (Youbetme) 03/30/2022,06/19/2021,11/11/2020,10/21 COVID-19, MRNA-LNP, 24-25, P R, 30MCG/0.3ML, IM, 12YRS AND ABOVE (Youbetme-Comirnaty) 05/25/2024 COVID-19, MRNA-LNP, PF, 30 M CG/0.3 mL, 12 YRS AND ABOVE, IM (PFIZER-Comirnaty) 11/25/2023 Covid-19, Mrna, Lnp-s, Pf, B ivalent, 30 Mcg, IM, 12 yrs and above (Pfizer) 06/15/2022 H1N1 2009 Influenza, IM 10/27/2009 Pneumococcal Conjugate Vacci ne, 20-valent ([id number]) 06/07/2022 Pneumococcal Polysaccharide PPV23 (Pneumovax) 10/22/2006 Season [...] encounter Miscellaneous Notes * Telephone Encounter - Nicole Tuttle CPhT - 11/16/2024 11:28 AM EST Patient calling in regarding amlodipine. This was last prescribed by PCP office, transferring caller to Medication Refill Line for further assistance. Thank you, Nicole Tuttle CPhT Solid Surface Fabricator II [facility] ([facility]) 11/16/2024,11:28 AM documented in this encounter Plan of Treatment Upcoming Encounters Date Type Department Care Team (Late st Contact Info) Description 04/08/2025 2:20 PM EDT Office Visit [facility], [facility] [address] [phone] Shalom Lieberman MD [address] [address] 05/19/2025 11:00 AM EDT Office Visit Urology, [facility] [address] [place] [address] Cordell Sexton MD [address] [place] [address] Health Maintenance Due Date Last Done Comments Adult Wellness Visit 03/08/2024 03/08/2023, 03/07/2022, 02/21/2021 COVID-19 Vaccine ( season) 2024 05/25/2024, 11/25/2023, 06/20/2023, Additional history exists CKD PHOS USE SMARTSET 77377 09/25/202409/16, 06/27/2022, 03/07/2022 Albumin/Creatinine Ratio 12/30/2024 12/31/2023, 0411/2022 GFR 03/01/2025 08/31/2024, 12/15, 09/25/2023, Additional history exists Depression Screening 08/21/2025 08/21/2024 CKD HGB USE SMARTSET 71609 08/31/202508/31, 08/31/2024, 09/25/2023, Additional history exists DTap/Tdap [...] filedocumented as of this encounter Care Teams Die Sizer Relationship Specialty Start Date End Date Noelle Duron MD PCP - General Internal Medicine 03/27/24 documented as of this encounter
--- OUTSIDE RECORDS SUMMARY | 2025-01-10 10:10 | External Medical Summary | Summary of Care ---
Author Name Unknown Organization [facility] Address [address] [place] [address] Phone [phone] Care Team Providers Care Licensed Optician Name Role Phone Noelle Duron MD Primary Care Provider [phone] Reason for Visit * Reason Onset Date Comments Medication Refill 10/21/2024 Encounter Details Date Type Department Care Team (Late st Contact Info) Description 10/21/2024 Refill [facility] [address] [place] [phone] Noelle Duron MD [address] [place], [place] [phone] Allergies Active Allergy Reactions Criticality Noted Date Comments Lidocaine Itching Low 07/29/2024 documented as of this encounter (statuses as of 10/23/2024) Medications hydrOXYzine HCl 25 MG tablet Take [...] morning and 1 Capsule before bedtime. Active Acetaminophen-C odeine 300-30 MG Oral Tablet Take 1 Tablet by mouth every 6 hours as needed for Pain, Severe. 30 Tablet 5 Active Lisinopril 20 MG Oral Tablet [...] as of this encounter (statuses as of 10/23/2024) Active Problems Problem Noted Date Diagnosed Date [...] as of this encounter (statuses as of 10/23/2024) Resolved Problems Problem Noted Date Diagnosed Date [...] as of this encounter (statuses as of 10/23/2024) Immunizations Name Administration Dates Next Due COVID-19 mRNA, LNP-s, No Pre serve, 2-Dose Series ([employer]) 03/30/2022,06/19/2021,11/11/2020,10/21 COVID-19, MRNA-LNP, 24-25, P R, 30MCG/0.3ML, IM, 12YRS AND ABOVE (Pfizer-Comirnat) 05/25/2024 COVID-19, MRNA-LNP, PF, 30 M CG/0.3 mL, 12 YRS AND ABOVE, IM (PFIZER-ComirnatLaurel & Wolf) 11/25/2023 Covid-19, Mrna, Lnp-s, Pf, B ivalent, 30 Mcg, IM, 12 yrs and above (Pfizer) 06/15/2022 H1N1 2009 Influenza, IM 10/27/2009 Pneumococcal Conjugate Vacci ne, 20-valent ([id number]) 06/07/2022 Pneumococcal Polysaccharide PPV23 (Pneumovax) 10/22/2006 Season [...] Exposure: Never Smokeless Tobacco: Never Comments:quit in 1969 Alcohol Use Standard Drinks/Week Comments Not Currently [...] Telephone Encounter - Noelle Duron MD - 10/23/2024 8:03 AM ESTSigned Prescriptions: Disp Refills Acetaminophen-Codeine 300-30 MG Oral [id number] Tab*0 Sig: Take 1 Tablet by mouth every 6 hours as needed for Pain, Severe. Authorizing Provider: NOELLE DURON * Telephone Encounter - Daija Beltran [facility] - 10/22/2024 5:58 AM ESTPending Prescriptions: Disp Refills Acetaminophen-Codeine 300-30 MG Oral Yfmojj00 Tab*0 Sig: Take 1 Tablet by mouth every 6 hours as needed for Pain, Severe. * Telephone Encounter - Daija Beltran [facility] - 10/22/2024 5:57 AM EST I have reviewed the patient’s controlled substance dispensing history in the Prescription Drug Monitoring Program in compliance with the [facility] regulations before prescribing a controlled substance. PDMP checked on 10/22/2024. Pending Prescriptions: Disp Refills Acetaminophen-Codeine 300-30 MG Oral Tabl*30 Tab*0 Sig: Take 1 Tablet by mouth every 6 hours as needed for Pain, Severe. Last Visit: 09/28/2024 (in office), Visit date not found (telemedicine) Next Visit: 10/22/2024 Date medication was last filled: 12/19/24 Date medication is due for refill: 09/11/24 [facility]: [facility] [id number] Is this request for a controlled substance? Yes and Urine Drug Screen Not completed Toxicology results: No results found for this or any previous visit. Please approve if appropriate. Thank You, Daija Beltran [facility] Clinical Pharmacist Centralized Clinical Pharmacy Services ([facility]) [phone] 10/22/2024, 5:57 AM documented in this encounter Plan of Treatment Upcoming Encounters Date Type Department Care Team (Late st Contact Info) Description 04/08/2025 2:20 PM EDT Office Visit [facility] [address] [phone] Shalom Lieberman MD [address] [address] 05/19/2025 11:00 AM EDT Office Visit Urology, [facility] [address] [place] [address] Cordell Sexton MD [address] [place] [address] Health Maintenance Due Date Last Done Comments Adult Wellness Visit 03/08/2024 03/08/2023, 03/07/2022, 02/21/2021 COVID-19 Vaccine ( season) 2024 05/25/2024, 11/25/2023, 06/20/2023, Additional history exists CKD PHOS USE SMARTSET 44582 09/25/202409/16, 06/27/2022, 03/07/2022 Albumin/Creatinine Ratio 12/30/2024 12/31/2023, 04/0 11/2022 GFR 03/01/2025 08/31/2024, 12/15, 09/25/2023, Additional history exists Depression Screening 08/21/2025 08/21/2024 CKD HGB USE SMARTSET 56619 08/31/202508/31, 08/31/2024, 09/25/2023, Additional history exists DTap/Tdap [...] filedocumented as of this encounter Care Teams Licensed Optician Relationship Specialty Start Date End Date Noelle Duron MD PCP - General Internal Medicine 03/27/24 documented as of this encounter
--- OUTSIDE RECORDS SUMMARY | 2025-01-10 10:10 | External Medical Summary | Summary of Care ---
Author Name Unknown Organization [facility] Address [address] [place] [address] Phone [phone] Care Team Providers Care Wheel Worker Name Role Phone Noelle Duron MD Primary Care Provider [phone] Reason for Visit * Reason Onset Date Comments Med Request 10/19/2024 Encounter Details Date Type Department Care Team (Late st Contact Info) Description 10/19/2024 Telephone [facility] [address] [facility] [place] [phone] Noelle Duron MD [address] [place], [place] [phone] Med Request Allergies Active Allergy Reactions Criticality Noted Date Comments Lidocaine Itching Low 07/29/2024 documented as of this encounter (statuses as of 10/30/2024) Medications hydrOXYzine HCl 25 MG tablet Take [...] as of this encounter (statuses as of 10/30/2024) Active Problems Problem Noted Date Diagnosed Date [...] as of this encounter (statuses as of 10/30/2024) Resolved Problems Problem Noted Date Diagnosed Date [...] as of this encounter (statuses as of 10/30/2024) Immunizations Name Administration Dates Next Due COVID-19 mRNA, LNP-s, No Pre serve, 2-Dose Series ([employer]) 03/30/2022,06/19/2021,11/11/2020,10/21 COVID-19, MRNA-LNP, 24-25, P R, 30MCG/0.3ML, IM, 12YRS AND ABOVE ([employer]) 05/25/2024 COVID-19, MRNA-LNP, PF, 30 M CG/0.3 mL, 12 YRS AND ABOVE, IM ([employer]) 11/25/2023 Covid-19, Mrna, Lnp-s, Pf, B ivalent, 30 Mcg, IM, 12 yrs and above (InDMusic) 06/15/2022 H1N1 2009 Influenza, IM 10/27/2009 Pneumococcal Conjugate Vacci ne, 20-valent ([id number]) 06/07/2022 Pneumococcal Polysaccharide PPV23 (Pneumovax) 10/22/2006 Season [...] FOR MOOD Preferred Quantity: 30 Previous Prescriber: Kash Mcgregor Preferred Pharmacy: [facility] [address] [place] [address] Mari VELÁSQUEZ [phone] Please review and approve if appropriate. Thank you, Gilda Valencia, Aeroplane Pilot Aeroplane Pilot I [facility] ([facility]) 10/19/2024,10:10 AM documented in this encounter Plan of Treatment Upcoming Encounters Date Type Department Care Team (Late st Contact Info) Description 04/08/2025 2:20 PM EDT Office Visit [facility] [address] [phone] Shalom Lieberman MD [address] [address] 05/19/2025 11:00 AM EDT Office Visit Urology, [facility] [address] [address] Cordell Sexton MD [address] [address] Health Maintenance Due Date Last Done Comments Adult Wellness Visit 03/08/2024 03/08/2023, 03/07/2022, 02/21/2021 COVID-19 Vaccine ( season) 2024 05/25/2024, 11/25/2023, 06/20/2023, Additional history exists CKD PHOS USE SMARTSET 88103 09/25/202409/16, 06/27/2022, 03/07/2022 Albumin/Creatinine Ratio 12/30/2024 12/31/2023, 04/0 11/2022 GFR 03/01/2025 08/31/2024, 12/15, 09/25/2023, Additional history exists Depression Screening 08/21/2025 08/21/2024 CKD HGB USE SMARTSET 71219 08/31/202508/31, 08/31/2024, 09/25/2023, Additional history exists DTap/Tdap [...] filedocumented as of this encounter Care Teams Wheel Worker Relationship Specialty Start Date End Date Noelle Duron MD PCP - General Internal Medicine 03/27/24 documented as of this encounter
--- OUTSIDE RECORDS SUMMARY | 2025-01-10 10:10 | External Medical Summary | Summary of Care ---
Author Name Unknown Organization [facility] Address [address] [place] [address] Phone [phone] Care Team Providers Care Seasoning Mixer Name Role Phone Noelle Duron MD Primary Care Provider [phone] Reason for Visit * Reason Onset Date Comments Med Request 10/29/2024 Encounter Details Date Type Department Care Team (Late st Contact Info) Description 10/29/2024 Telephone [facility]Note 3] [address] [facility] [place] [phone] Noelle Duron MD [address] [place], [place] [phone] Med Request Allergies Active Allergy Reactions Criticality Noted Date Comments Lidocaine Itching Low 07/29/2024 documented as of this encounter (statuses as of 10/29/2024) Medications hydrOXYzine HCl 25 MG tablet Take [...] half tabs by mouth daily. 5 Active documented as of this encounter (statuses as of 10/29/2024) Active Problems Problem Noted Date Diagnosed Date [...] as of this encounter (statuses as of 10/29/2024) Resolved Problems Problem Noted Date Diagnosed Date [...] as of this encounter (statuses as of 10/29/2024) Immunizations Name Administration Dates Next Due COVID-19 mRNA, LNP-s, No Pre serve, 2-Dose Series ([employer]) 03/30/2022,06/19/2021,11/11/2020,10/21 COVID-19, MRNA-LNP, 24-25, P R, 30MCG/0.3ML, IM, 12YRS AND ABOVE (Songkick-ComirnatSt. Vibes) 05/25/2024 COVID-19, MRNA-LNP, PF, 30 M CG/0.3 mL, 12 YRS AND ABOVE, IM ([employer]-ComirnatSt. Vibes) 11/25/2023 Covid-19, Mrna, Lnp-s, Pf, B ivalent, 30 Mcg, IM, 12 yrs and above (Songkick) 06/15/2022 H1N1 2009 Influenza, IM 10/27/2009 Pneumococcal Conjugate Vacci ne, 20-valent ([id number]) 06/07/2022 Pneumococcal Polysaccharide PPV23 (Pneumovax) 10/22/2006 Season [...] Telephone Encounter - Noelle Duron MD - 10/29/2024 10:09 AM EST Can't prescribe hormone medication He will need to discuss , test at first * Telephone Encounter - Najma Fung LPN - 10/29/2024 9:57 AM EST Order pended please sign if agreeable. * Telephone Encounter - Abdifatah Joe, energy projects lead - 10/29/2024 8:21 AM EST Pt calling requesting the following medication below that is listed as "Historical". The following information was provided: Medication Name: Testosterone 20.25 MG/ACT (1.62%) Transdermal Gel (AndroGel Pump) Strength: 20.25 MG/ACT Directions: Apply topically to affected area daily Preferred Quantity: 30 day supply Previous Prescriber: n/a [facility] [address] [place] [address] [address] VEL[address]SQUEZ Please review and approve if appropriate. Thank you, Abdifatah Joe Oracle Ascp Consultant I Clinical [facility] Services ([facility]) [address] [facility] [facility] [address], [address] [place] [address] [phone] 10/29/2024, 8:21 AM documented in this encounter Plan of Treatment Upcoming Encounters Date Type Department Care Team (Late st Contact Info) Description 04/08/2025 2:20 PM EDT [facility] [place] [facility] [address] [facility] [place] [phone] Shalom Lieberman MD [address] [facility] [place] [address] 05/19/2025 11:00 AM EDT Office Visit Urology, [facility] [address] [facility] [place] [address] Cordell Sexton MD [address] [address] Health Maintenance Due Date Last Done Comments Adult Wellness Visit 03/08/2024 03/08/2023, 03/07/2022, 02/21/2021 COVID-19 Vaccine ( season) 2024 05/25/2024, 11/25/2023, 06/20/2023, Additional history exists CKD PHOS USE SMARTSET 47616 09/25/202409/16, 06/27/2022, 03/07/2022 Albumin/Creatinine Ratio 12/30/2024 12/31/2023, 04/0 11/2022 GFR 03/01/2025 08/31/2024, 12/15, 09/25/2023, Additional history exists Depression Screening 08/21/2025 08/21/2024 CKD HGB USE SMARTSET 52704 08/31/202508/31, 08/31/2024, 09/25/2023, Additional history exists DTap/Tdap [...] filedocumented as of this encounter Care Teams Seasoning Mixer Relationship Specialty Start Date End Date Noelle Duron MD PCP - General Internal Medicine 03/27/24 documented as of this encounter
--- OUTSIDE RECORDS SUMMARY | 2025-01-10 10:10 | External Medical Summary | Summary of Care ---
Author Name Unknown Organization [facility] Address [address] [place] [address] Phone [phone] Care Team Providers Care Circuit Designer Name Role Phone Noelle Duron MD Primary Care Provider [phone] Reason for Visit * Reason Onset Date Comments Medication Refill 10/20/2024 Encounter Details Date Type Department Care Team (Late st Contact Info) Description 10/20/[address] [facility] [address] [place] [phone] Noelle Duron MD [address] [place], [place] [phone] Allergies Active Allergy Reactions Criticality Noted Date Comments Lidocaine Itching Low 07/29/2024 documented as of this encounter (statuses as of 10/22/2024) Medications hydrOXYzine HCl 25 MG tablet Take [...] at bedtime. 30 Tablet 5 4 Active Acetaminophen-C odeine 300-30 MG Oral Tablet Take 1 Tablet by mouth every 6 hours as needed for Pain, Severe. 30 Tablet 4 Active Omeprazole 20 MG Oral Capsule [...] at bedtime. 90 Capsule 3 5 Active amLODIPine Besylate 5 MG Oral Tablet (Norvasc) Take 1 Tablet by mouth in the morning. 5 Active Pregabalin 50 MG Oral Capsule (Lyrica) Take 1 Capsule by mouth in the morning and 1 Capsule before bedtime. Active Lisinopril 20 MG Oral Tablet (Prinivil) Take 1 Tablet by mouth in the morning. 4 10/22/19 25 Discontin ued(Patie nt preferenc e/discont inuation) Potassium Chloride ER 20 MEQ Oral Tablet Extended Release Take 1 Tablet by mouth in the morning. 4 10/22/19 25 Discontin ued(Patie nt preferenc e/discont inuation) Gabapentin 100 MG Oral Capsule (Neurontin) TAKE 1 CAPSULE BY MOUTH IN THE MORNING AND 3 AT BEDTIME FOR MOOD AND NEUROPATHY 4 10/22/19 25 Discontin ued(Patie nt preferenc e/discont inuation) Gabapentin 300 MG Oral Capsule (Neurontin) TAKE 1 CAPSULE BY MOUTH TWICE DAILY FOR MOOD AND NEUROPATHY 5 10/22/19 25 Discontin ued(Patie nt preferenc e/discont inuation) documented as of this encounter (statuses as of 10/22/2024) Active Problems Problem Noted Date Diagnosed Date [...] as of this encounter (statuses as of 10/22/2024) Resolved Problems Problem Noted Date Diagnosed Date [...] as of this encounter (statuses as of 10/22/2024) Immunizations Name Administration Dates Next Due COVID-19 mRNA, LNP-s, No Pre serve, 2-Dose Series ([employer]) 03/30/2022,06/19/2021,11/11/2020,10/21 COVID-19, MRNA-LNP, 24-25, P R, 30MCG/0.3ML, IM, 12YRS AND ABOVE (Pfizer-Comirnaty) 05/25/2024 COVID-19, MRNA-LNP, PF, 30 M CG/0.3 mL, 12 YRS AND ABOVE, IM (PFIZER-Comirnaty) 11/25/2023 Covid-19, Mrna, Lnp-s, Pf, B ivalent, 30 Mcg, IM, 12 yrs and above (Pfizer) 06/15/2022 H1N1 2009 Influenza, IM 10/27/2009 Pneumococcal Conjugate Vacci ne, 20-valent ([id number]) 06/07/2022 Pneumococcal Polysaccharide PPV23 (Pneumovax) 10/22/2006 Season [...] No 02/26/2024 Does the household have a [facility] source of income? (Household - for ages [...] encounter Miscellaneous Notes * Telephone Encounter - Shalom Lieberman MD - 10/20/2024 11:54 AM EST This prescription is not from us. I believe it is prescribed by endocrinology ([facility]) * Telephone Encounter - Haylie Ortega LPN - 10/20/2024 9:01 AM EST Pending Prescriptions: Disp Refills Testosterone 20.25 MG/ACT (1.62%) Transde* Sig: daily. Last Visit: 09/28/2024 (in office), Visit date not found (telemedicine) Next Visit: 10/22/2024 Patient Active Problem List Diagnosis HTN, goal [...] medical condition without behavioral disturbance (HCC) Delirium Labs: Lab Results Component Value Date/Time CREATININE - [facility] 1.3 (H) 08/31/2024 12:24 PM CREATININE - [facility] 1.28 06/27/2022 12:00 AM CREATININE - [facility] 1.1 09/14/2010 08:28 AM CREATININE, RANDOM URINE - [facility] 64 12/31/2023 09:25 AM Lab Results Component Value Date/Time POTASSIUM - [facility] 4.1 08/31/2024 12:24 PM POTASSIUM - [facility] 4.2 06/27/2022 12:00 AM POTASSIUM - [facility] 4.3 09/14/2010 08:28 AM Lab Results Component Value Date/Time TSH - [facility] 0.36 08/31/2024 12:24 PM TSH - [facility] 0.04 (L) 05/22/2006 03:45 PM Lab Results Component Value Date/Time LDL CHOLESTEROL (CALCULATED) - [facility] 96 09/25/2023 09:03 AM LDL CHOLESTEROL (CALCULATED) - [facility] 117 12/29/2021 03:33 PM LDL CHOLESTEROL (CALCULATED) - [facility] 134 (H) 09/14/2010 08:28 AM LDL CHOLESTEROL (CALCULATED) - [facility] 84 06/07/2009 08:58 AM Lab Results Component Value Date/Time ALT - [facility] 24 09/25/2023 09:03 AM ALT - [facility] 24 09/14/2010 08:28 AM Hemoglobin AIC Results: No results found for: "HEMOGLOBIN A1C" * Telephone Encounter - Hailee Chanel PHARM Tech - 10/20/2024 8:37 AM EST Pt calling requesting the following medication below that is listed as "Historical". The following information was provided: Medication Name: Testosterone Transdermal Gel (AndroGel Pump) Strength: 20.25 MG/ACT (1.62%) Directions: Apply topically to affected area daily Preferred Quantity: 30 day supply Previous Prescriber: Pt unsure Preferred Pharmacy: [facility] [address] [address] Please review and approve if appropriate. Thank you, Hailee Chanel Public Relations Supervisor I [facility]ized [facility] Services ([facility]) 10/20/2024,8:37 AM documented in this encounter Plan of Treatment Upcoming Encounters Date Type Department Care Team (Late st Contact Info) Description 04/08/2025 2:20 PM EDT [facility] [address] [phone] Shalom Lieberman MD [address] [address] 05/19/2025 11:00 AM EDT Office Visit Urology, [facility] [address] [address] Cordell Sexton MD [address] [phone] Health Maintenance Due Date Last Done Comments Adult Wellness Visit 03/08/2024 03/08/2023, 03/07/2022, 02/21/2021 COVID-19 Vaccine ( season) 2024 05/25/2024, 11/25/2023, 06/20/2023, Additional history exists CKD PHOS USE SMARTSET 21458 09/25/202409/16, 06/27/2022, 03/07/2022 Albumin/Creatinine Ratio 12/30/2024 12/31/2023, 04/0 11/2022 GFR 03/01/2025 08/31/2024, 12/15, 09/25/2023, Additional history exists Depression Screening 08/21/2025 08/21/2024 CKD HGB USE SMARTSET 57200 08/31/202508/31, 08/31/2024, 09/25/2023, Additional history exists DTap/Tdap [...] filedocumented as of this encounter Care Teams Circuit Designer Relationship Specialty Start Date End Date Noelle Duron MD PCP - General Internal Medicine 03/27/24 documented as of this encounter
--- OUTSIDE RECORDS SUMMARY | 2025-01-10 10:10 | External Medical Summary | Summary of Care ---
Author Name Unknown Organization [facility] Address [address] [place] [address] Phone [phone] Care Team Providers Care Fittings Finisher Name Role Phone Noelle Duron MD Primary Care Provider [phone] Reason for Visit * Reason Onset Date Comments Medication Question 11/17/2024 Encounter Details Date Type Department Care Team (Late st Contact Info) Description 11/17/2024 Telephone [facility] [address] [facility] [place] [phone] Noelle Duron MD [address] [place], [place] [phone] Medication Question Allergies Active Allergy Reactions Criticality Noted Date Comments Lidocaine Itching Low 07/29/2024 documented as of this encounter (statuses as of 11/18/2024) Medications hydrOXYzine HCl 25 MG tablet Take [...] and a half tabs by mouth daily. 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 11/08/2024 Dementia due [...] as of this encounter (statuses as of 11/18/2024) Resolved Problems Problem Noted Date Diagnosed Date [...] as of this encounter (statuses as of 11/18/2024) Immunizations Name Administration Dates Next Due COVID-19 mRNA, LNP-s, No Pre serve, 2-Dose Series ([employer]) 03/30/2022,06/19/2021,11/11/2020,10/21 COVID-19, MRNA-LNP, 24-25, P R, 30MCG/0.3ML, IM, 12YRS AND ABOVE ([employer]-Comirnaty) 05/25/2024 COVID-19, MRNA-LNP, PF, 30 M CG/0.3 mL, 12 YRS AND ABOVE, IM (PFIZER-Comirnaty) 11/25/2023 Covid-19, Mrna, Lnp-s, Pf, B ivalent, 30 Mcg, IM, 12 yrs and above (Pfizer) 06/15/2022 H1N1 2009 Influenza, IM 10/27/2009 Pneumococcal Conjugate Vacci ne, 20-valent ([id number]) 06/07/2022 Pneumococcal Polysaccharide PPV23 (Pneumovax) 10/22/2006 Season [...] encounter Miscellaneous Notes * Telephone Encounter - Hailee Kebede LPN - 11/17/2024 4:09 PM EST Please advise how pt should be taking amlodipine & send new script * Telephone Encounter - Ivan Whelan, inside sales executive - 11/17/2024 9:32 AM EST [facility] requesting a new RX for Amlodipine 5 mg. Need a script with proper directions ofuse for pt. Thank You, Ivan Whelan [facility] Senior Tax Analyst II Centralized Clinical Pharmacy Services 11/17/2024, 9:33 AM documented in this encounter Plan of Treatment Upcoming Encounters Date Type Department Care Team (Late st Contact Info) Description 04/08/2025 2:20 PM EDT Office Visit Family [facility] [place] Argu[place] [address] [phone] Shalmo Lieberman MD [address] [address] 05/19/2025 11:00 AM EDT Office Visit Urology, [facility] [address] [place] [place] [address] Cordell Sexton MD [address] [address] Health Maintenance Due Date Last Done Comments Adult Wellness Visit 03/08/2024 03/08/2023, 03/07/2022, 02/21/2021 COVID-19 Vaccine ( season) 2024 05/25/2024, 11/25/2023, 06/20/2023, Additional history exists CKD PHOS USE SMARTSET 53745 09/25/202409/16, 06/27/2022, 03/07/2022 Albumin/Creatinine Ratio 12/30/2024 12/31/2023, 04/0 11/2022 GFR 03/01/2025 08/31/2024, 12/15, 09/25/2023, Additional history exists Depression Screening 08/21/2025 08/21/2024 CKD HGB USE SMARTSET 89238 08/31/202508/31, 08/31/2024, 09/25/2023, Additional history exists DTap/Tdap [...] filedocumented as of this encounter Care Teams Fittings Finisher Relationship Specialty Start Date End Date Noelle Duron MD PCP - General Internal Medicine 03/27/24 documented as of this encounter
--- OUTSIDE RECORDS SUMMARY | 2025-01-10 10:10 | External Medical Summary | Summary of Care ---
Author Name Unknown Organization [facility] Address [address] [place] [address] Phone [phone] Care Team Providers Care Results Engineer Name Role Phone Noelle Duron MD Primary Care Provider [phone] Reason for Visit * Reason Onset Date Comments Medication Question 11/16/2024 Encounter Details Date Type Department Care Team (Late st Contact Info) Description 11/16/2024 Telephone [facility] [place] [address] [place] [phone] Noelle Duron MD [address] [place], [place] [phone] Medication Question Allergies Active Allergy Reactions Criticality Noted Date Comments Lidocaine Itching Low 07/29/2024 documented as of this encounter (statuses as of 11/17/2024) Medications hydrOXYzine HCl 25 MG tablet Take [...] mouth daily. 90 Tablet 3 5 Active amLODIPine Besylate 5 MG Oral Tablet (Norvasc)Indica tions:HTN, goal below 140/90 Take 1 Tablet by mouth in the morning. One and a half tabs by mouth daily. 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 11/08/2024 Dementia due [...] as of this encounter (statuses as of 11/17/2024) Resolved Problems Problem Noted Date Diagnosed Date [...] as of this encounter (statuses as of 11/17/2024) Immunizations Name Administration Dates Next Due COVID-19 mRNA, LNP-s, No Pre serve, 2-Dose Series ([employer]) 03/30/2022,06/19/2021,11/11/2020,10/21 COVID-19, MRNA-LNP, 24-25, P R, 30MCG/0.3ML, IM, 12YRS AND ABOVE (Pfizer-Comirnaty) 05/25/2024 COVID-19, MRNA-LNP, PF, 30 M CG/0.3 mL, 12 YRS AND ABOVE, IM (PFIZER-Comirnaty) 11/25/2023 Covid-19, Mrna, Lnp-s, Pf, B ivalent, 30 Mcg, IM, 12 yrs and above (Pfizer) 06/15/2022 H1N1 2009 Influenza, IM 10/27/2009 Pneumococcal Conjugate Vacci ne, 20-valent ([id number]) 06/07/2022 Pneumococcal Polysaccharide PPV23 (Pneumovax) 10/22/2006 Season [...] Telephone Encounter - Noelle Duron MD - 11/17/2024 7:49 AM EST Signed * Telephone Encounter - Kait Covington LPN - 11/16/2024 2:18 PM EST Did you pend patient's preferred pharmacy and medication before forwarding?yes Pharmacy: [facility] [id number] [facility] Pending Prescriptions: Disp Refills amLODIPine Besylate 5 MG Oral Tablet (Nor*5 Tabl* Sig: Take 1 Tablet by mouth in the morning. One and a half tabs by mouth daily. Last Visit: 10/22/2024 (in office), Visit date not found (telemedicine) Next Visit: 04/08/2025 If no future appointments scheduled, and last appointment is greater than a year ago, please schedule patient for a follow-up appointment Last date the medication was ordered: 10/22/24 Is this request for a controlled substance?No Urine Drug Screen:No results found for this or any previous visit. Patient Phone Numbers Labs: Lab Results Component [...] 09:03 AM ALT 24 09/14/2010 08:28 AM * Telephone Encounter - Ivan Whelan, senior analyst programmer - 11/16/2024 11:30 AM EST Pt calling requesting the following medication below that is listed as "Historical". The following information was provided: Medication Name: Amlodipine Strength: 5 mg Directions: Take 1 tab daily. Preferred Quantity: 90 day supply. Previous Prescriber: Dr Lieberman Preferred Pharmacy: [facility] Please review and approve if appropriate. Thank You, Ivan Whelan [facility] Adjunct Instructor Chemistry II Centralized Clinical Pharmacy Services 11/16/2024, 11:31 AM documented in this encounter Plan of Treatment Upcoming Encounters Date Type Department Care Team (Late st Contact Info) Description 04/08/2025 2:20 PM EDT Office Visit Family Practice, [facility] Arguello [address] [phone] Shalom Lieberman MD [address] [phone] 05/19/2025 11:00 AM EDT Office Visit Urology, [facility] [address] [facility] [place] [place] [address] Cordell Sexton MD [address] [place] [place] [address] Health Maintenance Due Date Last Done Comments Adult Wellness Visit 03/08/2024 03/08/2023, 03/07/2022, 02/21/2021 COVID-19 Vaccine ( season) 2024 05/25/2024, 11/25/2023, 06/20/2023, Additional history exists CKD PHOS USE SMARTSET 59099 09/25/202409/16, 06/27/2022, 03/07/2022 Albumin/Creatinine Ratio 12/30/2024 12/31/2023, 040 11/2022 GFR 03/01/2025 08/31/2024, 12/15, 09/25/2023, Additional history exists Depression Screening 08/21/2025 08/21/2024 CKD HGB USE SMARTSET 77360 08/31/202508/31, 08/31/2024, 09/25/2023, Additional history exists DTap/Tdap [...] encounter Visit Diagnoses Diagnosis HTN, goal below 140/90 Unspecified essential hypertension documented in this encounter Care Teams Results Engineer Relationship Specialty Start Date End Date Noelle Duron MD PCP - General Internal Medicine 03/27/24 documented as of this encounter
--- OUTSIDE RECORDS SUMMARY | 2025-01-10 10:10 | External Medical Summary | Summary of Care ---
Author Name Unknown Organization [facility] Address [address] [place] [address] Phone [phone] Care Team Providers Care Ceo Na Name Role Phone Noelle Duron MD Primary Care Provider [phone] Reason for Visit * Reason Onset Date Comments Med Request 10/19/2024 Encounter Details Date Type Department Care Team (Late st Contact Info) Description 10/19/2024 Telephone [facility] [address] [facility] [place] [phone] Noelle Duron MD [address] [place], [place] [phone] Med Request Allergies Active Allergy Reactions Criticality [...] mRNA, LNP-s, No Pre serve, 2-Dose Series ([employer]) 03/30/2022,06/19/2021,11/11/2020,10/21 COVID-19, MRNA-LNP, 24-25, P R, 30MCG/0.3ML, IM, 12YRS AND ABOVE ([employer] [facility]) 05/25/2024 COVID-19, MRNA-LNP, PF, 30 M CG/0.3 mL, 12 YRS AND ABOVE, IM ([employer]) 11/25/2023 Covid-19, Mrna, Lnp-s, Pf, B ivalent, 30 Mcg, IM, 12 yrs and above ([employer]) 06/15/2022 H1N1 2009 Influenza, IM 10/27/2009 Pneumococcal Conjugate Vacci ne, 20-valent (Aqreeff08) 06/07/2022 Pneumococcal Polysaccharide PPV23 (Pneumovax) 10/22/2006 Season [...] 30 Previous Prescriber: Kash Mcgregor Preferred Pharmacy: [facility] [address] [place] [address] Mari VELÁSQUEZ [phone] Please review and approve if appropriate. Thank you, Gilda Valencia, Relay Mechanic Relay Mechanic I [facility] ([facility]) 10/19/2024,10:10 AM documented in this encounter Plan of Treatment Upcoming Encounters Date Type Department Care Team (Late st Contact Info) Description 04/08/2025 2:20 PM EDT Office Visit Kash Mcgregor [address] [phone] Shalom Lieberman MD [address] [address] 05/19/2025 11:00 AM EDT Office Visit Urology, [facility] [address] [address] Cordell Sexton MD [address] [address] Health Maintenance Due Date Last Done Comments Adult Wellness Visit 03/08/2024 03/08/2023, 03/07/2022, 02/21/2021 COVID-19 Vaccine ( season) 2024 05/25/2024, 11/25/2023, 06/20/2023, Additional history exists CKD PHOS USE SMARTSET 56731 09/25/202409/16, 06/27/2022, 03/07/2022 Albumin/Creatinine Ratio 12/30/2024 12/31/2023, 04/0 11/2022 GFR 03/01/2025 08/31/2024, 12/15, 09/25/2023, Additional history exists Depression Screening 08/21/2025 08/21/2024 CKD HGB USE SMARTSET 95275 08/31/202508/31, 08/31/2024, 09/25/2023, Additional history exists DTap/Tdap [...] filedocumented as of this encounter Care Teams Ceo Na Relationship Specialty Start Date End Date Noelle Duron MD PCP - General Internal Medicine 03/27/24 documented as of this encounter
--- OUTSIDE RECORDS SUMMARY | 2025-01-10 10:10 | External Medical Summary | Summary of Care ---
Author Name Unknown Organization [facility] Address [address] [place] [address] Phone [phone] Care Team Providers Care Retail Furniture Sales Name Role Phone Noelle Duron MD Primary Care Provider [phone] Reason for Visit * Reason Onset Date Comments Med Request 10/29/2024 Encounter Details Date Type Department Care Team (Late st Contact Info) Description 10/29/2024 Telephone [facility] [address] [facility] [place] [phone] Noelle Duron MD [address] [place], [place] [phone] Med Request Allergies Active Allergy Reactions Criticality [...] mRNA, LNP-s, No Pre serve, 2-Dose Series ([employer]) 03/30/2022,06/19/2021,11/11/2020,10/21 COVID-19, MRNA-LNP, 24-25, P R, 30MCG/0.3ML, IM, 12YRS AND ABOVE ([employer]-ComirnatTable8) 05/25/2024 COVID-19, MRNA-LNP, PF, 30 M CG/0.3 mL, 12 YRS AND ABOVE, IM ([employer]-ComirnatTable8) 11/25/2023 Covid-19, Mrna, Lnp-s, Pf, B ivalent, 30 Mcg, IM, 12 yrs and above ([employer]) 06/15/2022 H1N1 2009 Influenza, IM 10/27/2009 Pneumococcal Conjugate Vacci ne, 20-valent (Eaxoyna99) 06/07/2022 Pneumococcal Polysaccharide PPV23 (Pneumovax) 10/22/2006 Season [...] encounter Miscellaneous Notes * Telephone Encounter - Kait Covington LPN - 10/29/2024 3:09 PM EST Called pt. He is aware and he states that he would call back. * Telephone Encounter - Noelle Duron MD - 10/29/2024 10:09 AM EST Can't prescribe hormone medication He will need to discuss , test at first * Telephone Encounter - Najma Fung LPN - 10/29/2024 9:57 AM EST Order pended please sign if agreeable. * Telephone Encounter - Abdifatah Joe PHARM Tech - 10/29/2024 8:21 AM EST Pt calling requesting the following medication below that is listed as "Historical". The following information was provided: Medication Name: Testosterone 20.25 MG/ACT (1.62%) Transdermal Gel (AndroGel Pump) Strength: 20.25 MG/ACT Directions: Apply topically to affected area daily Preferred Quantity: 30 day supply Previous Prescriber: n/a Preferred Pharmacy: [facility] [address] [address] Please review and approve if appropriate. Thank you, Abdifatah Joe Coil Wrapper [facility] ([facility]) [address] [place] [address], [address] [place] [phone] 10/29/2024, 8:21 AM documented in this encounter Plan of Treatment Upcoming Encounters Date Type Department Care Team (Late st Contact Info) Description 04/08/2025 2:20 PM EDT Office Visit [facility] [address] [facility] [place] [phone] Shalom Lieberman MD [address] [address] 05/19/2025 11:00 AM EDT Office Visit Urology, [facility] [address] [address] Cordell Sexton MD [address] [address] Health Maintenance Due Date Last Done Comments Adult Wellness Visit 03/08/2024 03/08/2023, 03/07/2022, 02/21/2021 COVID-19 Vaccine ( season) 2024 05/25/2024, 11/25/2023, 06/20/2023, Additional history exists CKD PHOS USE SMARTSET 62005 09/25/202409/16, 06/27/2022, 03/07/2022 Albumin/Creatinine Ratio 12/30/2024 12/31/2023, 11/2022 GFR 03/01/2025 08/31/2024, 12/15, 09/25/2023, Additional history exists Depression Screening 08/21/2025 08/21/2024 CKD HGB USE SMARTSET 05992 08/31/202508/31, 08/31/2024, 09/25/2023, Additional history exists DTap/Tdap [...] filedocumented as of this encounter Care Teams Retail Furniture Sales Relationship Specialty Start Date End Date Noelle Duron MD PCP - General Internal Medicine 03/27/24 documented as of this encounter
--- OUTSIDE RECORDS SUMMARY | 2025-01-10 10:10 | External Medical Summary | Summary of Care ---
Author Name Unknown Organization [facility] Address [address] [place] [address] Phone [phone] Care Team Providers Care Laundry Bag Punch Operator Name Role Phone Noelle Duron MD Primary Care Provider [phone] Reason for Visit * Reason Onset Date Comments Medication Question 11/17/2024 Encounter Details Date Type Department Care Team (Late st Contact Info) Description 11/17/2024 Telephone [facility] [address] [facility] [place] [phone] Noelle Duron MD [address] [place], [place] [phone] Medication Question Allergies Active Allergy Reactions Criticality Noted Date Comments Lidocaine Itching Low 07/29/2024 documented as of this encounter (statuses as of 11/19/2024) Medications hydrOXYzine HCl 25 MG tablet Take [...] the morning. 135 Tablet 3 5 Active amLODIPine Besylate 5 MG Oral Tablet (Norvasc)Indica tions:HTN, goal below 140/90 Take 1 Tablet by mouth in the morning. One and a half tabs by mouth daily. 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 11/08/2024 Dementia due [...] as of this encounter (statuses as of 11/19/2024) Resolved Problems Problem Noted Date Diagnosed Date [...] as of this encounter (statuses as of 11/19/2024) Immunizations Name Administration Dates Next Due COVID-19 mRNA, LNP-s, No Pre serve, 2-Dose Series ([employer]) 03/30/2022,06/19/2021,11/11/2020,10/21 COVID-19, MRNA-LNP, 24-25, P R, 30MCG/0.3ML, IM, 12YRS AND ABOVE (Pfizer-Comirnaty) 05/25/2024 COVID-19, MRNA-LNP, PF, 30 M CG/0.3 mL, 12 YRS AND ABOVE, IM (PFIZER-Comirnaty) 11/25/2023 Covid-19, Mrna, Lnp-s, Pf, B ivalent, 30 Mcg, IM, 12 yrs and above (Pfizer) 06/15/2022 H1N1 2009 Influenza, IM 10/27/2009 Pneumococcal Conjugate Vacci ne, 20-valent ([id number]) 06/07/2022 Pneumococcal Polysaccharide PPV23 (Pneumovax) 10/22/2006 Season [...] as of this encounter Miscellaneous Notes * Addendum Note - Noelle Duron MD - 11/19/2024 8:15 AM ESTAddended by: NOELLE DURON on: 11/19/2024 08:15 AM Modules accepted: Orders * Telephone Encounter - Noelle Duron MD - 11/19/2024 8:15 AM EST Resent * Telephone Encounter - Hailee Kebede LPN - 11/17/2024 4:09 PM EST Please advise how pt should be taking amlodipine & send new script * Telephone Encounter - Ivan Whelan, human resources compliance manager - 11/17/2024 9:32 AM EST [facility] requesting a new RX for Amlodipine 5 mg. Need a script with proper directions ofuse for pt. Thank You, Ivan Whelan [facility] Incident Response Consultant II Centralized Clinical Pharmacy Services 11/17/2024, 9:33 AM documented in this encounter Plan of Treatment Upcoming Encounters Date Type Department Care Team (Late st Contact Info) Description 04/08/2025 2:20 PM EDT Office Visit [facility] D[facility] Arguello [address] [phone] Shalom Lieberman MD [address] [address] 05/19/2025 11:00 AM EDT Office Visit Urology, [facility] [address] [facility] [place] [address] Cordell Sexton MD [address] [address] Health Maintenance Due Date Last Done Comments Adult Wellness Visit 03/08/2024 03/08/2023, 03/07/2022, 02/21/2021 COVID-19 Vaccine ( season) 2024 05/25/2024, 11/25/2023, 06/20/2023, Additional history exists CKD PHOS USE SMARTSET 42264 09/25/202409/16, 06/27/2022, 03/07/2022 Albumin/Creatinine Ratio 12/30/2024 12/31/2023, 04/0 11/2022 GFR 03/01/2025 08/31/2024, 12/15, 09/25/2023, Additional history exists Depression Screening 08/21/2025 08/21/2024 CKD HGB USE SMARTSET 78340 08/31/202508/31, 08/31/2024, 09/25/2023, Additional history exists DTap/Tdap [...] hypertension documented in this encounter Care Teams Laundry Bag Punch Operator Relationship Specialty Start Date End Date Noelle Duron MD PCP - General Internal Medicine 03/27/24 documented as of this encounter
--- OUTSIDE RECORDS SUMMARY | 2025-01-10 10:10 | External Medical Summary | Summary of Care ---
Author Name Unknown Organization [facility] Address [address] [place] [address] Phone [phone] Care Team Providers Care Veterans Adviser Name Role Phone Noelle Duron MD Primary Care Provider [phone] Reason for Visit * Reason Onset Date Comments Med Request 10/19/2024 Encounter Details Date Type Department Care Team (Late st Contact Info) Description 10/19/2024 Telephone [facility] [address] [facility] [place] [phone] Noelle Duron MD [address] [place], [place] [phone] Med Request Allergies Active Allergy Reactions Criticality [...] mRNA, LNP-s, No Pre serve, 2-Dose Series (K[employer]) 03/30/2022,06/19/2021,11/11/2020,10/21 COVID-19, MRNA-LNP, 24-25, P R, 30MCG/0.3ML, IM, 12YRS AND ABOVE ([employer]) 05/25/2024 COVID-19, MRNA-LNP, PF, 30 M CG/0.3 mL, 12 YRS AND ABOVE, IM ([employer]) 11/25/2023 Covid-19, Mrna, Lnp-s, Pf, B ivalent, 30 Mcg, IM, 12 yrs and above (KARALIT) 06/15/2022 H1N1 2009 Influenza, IM 10/27/2009 Pneumococcal Conjugate Vacci ne, 20-valent ([email or web address]) 06/07/2022 Pneumococcal Polysaccharide PPV23 (Pneumovax) 10/22/2006 Season [...] 30 Previous Prescriber: Kash Mcgregor Preferred Pharmacy: [facility] [address] [place] [address] Mari VELÁSQUEZ [phone] Please review and approve if appropriate. Thank you, Gilda Valencia, Plumber Apprentice Plumber Apprentice I [facility] ([facility]) 10/19/2024,10:10 AM documented in this encounter Plan of Treatment Upcoming Encounters Date Type Department Care Team (Late st Contact Info) Description 04/08/2025 2:20 PM EDT Office Visit Kash Mcgregor [address] [phone] Shalom Lieberman MD [address] [address] 05/19/2025 11:00 AM EDT Office Visit Urology, [facility] [address] [address] Cordell Sexton MD [address] [address] Health Maintenance Due Date Last Done Comments Adult Wellness Visit 03/08/2024 03/08/2023, 03/07/2022, 02/21/2021 COVID-19 Vaccine ( season) 2024 05/25/2024, 11/25/2023, 06/20/2023, Additional history exists CKD PHOS USE SMARTSET 19712 09/25/202409/16, 06/27/2022, 03/07/2022 Albumin/Creatinine Ratio 12/30/2024 12/31/2023, 04/0 11/2022 GFR 03/01/2025 08/31/2024, 12/15, 09/25/2023, Additional history exists Depression Screening 08/21/2025 08/21/2024 CKD HGB USE SMARTSET 80582 08/31/202508/31, 08/31/2024, 09/25/2023, Additional history exists DTap/Tdap [...] filedocumented as of this encounter Care Teams Veterans Adviser Relationship Specialty Start Date End Date Noelle Duron MD PCP - General Internal Medicine 03/27/24 documented as of this encounter
--- NOTE | 2025-01-10 10:17 | Emergency Department Note ---
Impression & Plan TIA (transient ischemic attack), Confusion ED Provider Note NAME: PUJA GROSSMAN AGE: 84 SEX: M : 1940 ARRIVES VIA: Walk-In INFORMANT: Patient ED PROVIDER(S): Jef Del Rio DO CHIEF COMPLAINT: Dizzy, confusion and right-sided weakness HPI: Patient is an 84-year-old male with a past medical history of adrenal insufficiency, hypertension and anxiety who presents to the ER for confusion and dizziness. Symptoms initially started around 8-8:30 per family is present at bedside. He went to stand up and felt real dizzy and lightheaded. He was brought into the ER and at that time he was found to be confused and was leaning towards his right with some arm weakness. He currently denies any headache or change in vision. No chest pain or shortness of breath. No nausea, vomiting, or diarrhea. No focal weakness nail. No dysuria, urgency, or frequency. He does take Brilinta. ADDITIONAL HISTORY OBTAINED: Per HPI Chronic Medical/Social Conditions Affecting Care: Per HPI PAST MEDICAL HISTORY:See Below PAST SURGICAL HISTORY:See Below FAMILY HISTORY:See Below SOCIAL HISTORY:See Below HOME MEDICATIONS:See Below ALLERGIES:See Below VITALS:See Below PHYSICAL EXAMINATION: GENERAL: Sitting up in bed, alert, well appearing, well nourished, no distress, non-toxic EYE EXAM: normal conjunctiva. PERRL and EOM's intact. OROPHARYNX: no exudate, no erythema, lips, buccal mucosa, and tongue normal and mucous membranes are moist NECK: supple, no nuchal rigidity, no adenopathy, non-tender LUNGS: Clear to auscultation. Normal chest wall mechanics HEART: no murmurs, S1 normal and S2 normal ABDOMEN: abdomen soft, non-tender, normo-active bowel sounds, no masses, no rebound or guarding. BACK: Back is symmetrical on inspection and there is no deformity, no midline tenderness, no CVA tenderness. SKIN: no rashes and no bruising UPPER EXTREMITIES: upper extremities are grossly normal. LOWER EXTREMITIES: No pitting edema. NEURO EXAM: Normal sensorium, cranial nerves II-XII intact, normal speech, no weakness of arms, no weakness of legs. No drift. Finger to nose intact. Gross sensation intact. MEDICAL DECISION MAKING: Patient is an 84-year-old male who presents ER for the above-stated complaint. Upon my initial assessment patient was oriented to person place or time with no focal deficit. Stroke alert was called based on the presenting symptoms. IV was established and blood work was obtained. Labs show no significant leukocytosis or anemia. INR unremarkable. BMP with a slightly elevated chloride at 09/16/2007. LFTs and bilirubin were unremarkable. Troponin was negative. Discussed with Christina telestroke who notes that patient is not a TNK candidate currently which I agree with based on symptoms and NIH. Discussed with radiology Dr. Galvan who noted that there is no acute findings on the CT as well as CTAs of the head and neck. Patient was updated bedside. Patient was given aspirin discussed with the hospitalist admitted for further workup. Consults/Care Managements Discussions: Per [facility] Triage Nursing notes reviewed. Limited review of prior medical records performed Vital Signs: reviewed and remarkable for no significant abnormalities Differential diagnosis: Differential Diagnosis includes but is not limited to ischemic Stroke, hemorrhagic stroke, bells palsy, mass, neoplasm, migraine headache, seizure, subarachnoid hemorrhage, TIA, and transient global amnesia. ER treatment provided: See below Diagnostics interpreted by me include EKG and cardiac monitoring as listed below: -Cardiac Monitoring: An order was placed for continuous cardiac monitoring. The monitor shows a rate of 60 with sinus rhythm. -ECG: Sinus rhythm rate of 56 Left axis No PVCs QTc 401 -Laboratory studies:Interpreted by me as stated above in MDM and shown below. Imaging studies: Xrays: As interpreted by me: None CTs show: CT of the head per my preliminary interpretation showed no obvious large bleed Procedures:none Critical Care: None Past Med/Surg History Problem List (Updated 01/10/25 @ 13:00 by Jef Del Rio DO) Confusion (Acute) TIA (transient ischemic attack) (Acute) Dizziness Balanitis Phimosis Spinal stenosis of lumbar region with radiculopathy Severe uncontrolled hypertension Headache (Acute) Anxiety (Acute) Spinal stenosis (Acute) Isolated TSH deficiency Hyperthyroidism Back pain of lumbar region with sciatica (Acute) Adrenal insufficiency (Acute) Prediabetes 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 Trochanteric bursitis of right hip Dyslipidemia Osteopenia Prostatic hypertrophy ACTH deficiency (Chronic) 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) Medical History Vitamin D deficiency History of DVT (deep vein thrombosis) Blind left eye Chronic cholecystitis Multiple renal cysts BPH (benign prostatic hyperplasia) IBS (irritable bowel syndrome) GERD (gastroesophageal reflux disease) History of melanoma Hearing deficit Lumbar herniated disc Surgical History Hx laparoscopic cholecystectomy (06/03/19) History of skin graft History of parotidectomy History of craniotomy Status post trigger finger release History of esophagogastroduodenoscopy (EGD) History of colonoscopy History of melanoma excision Family History Sister Family hx of colon cancer Father Tobacco use Coronary heart disease Mother Diverticulosis of intestine Sister Ovarian cancer Colon cancer Grandfather Cancer Aunt Cancer Uncle Cancer Grandmother (Maternal) Cancer Other No significant family history Social History Smoking Status: Never smoker Tobacco Type: Cigarettes Second Hand Exposure: No; Do You Dip or Chew Tobacco: No; Hx Alcohol Use: No Hx Substance Use: No Preferred Language: Czech Communication Ability: Effective Visual Impairment: No Limitations Home Health Manager Required: No Beliefs That Will Affect Care: None Current Living Situation: Spouse Current Living Situation Comment: lives with 2 cats as well Feels Safe at Home: Yes Assistive Devices: Walker Allergies Allergies Allergy/AdvReac Type Severity Reaction Status Date / Time lidocaine [From Lidoderm] AdvReac Mild Itching Verified 10/21/24 14:22 Home Meds Home Medications Medication Instructions Recorded Confirmed aspirin 81 mg tablet,delayed 81 mg PO DAILY 08/07/24 01/10/25 release atorvastatin 40 mg tablet 40 mg PO DAILY 08/07/24 01/10/25 dicyclomine 20 mg tablet 20 mg PO TID PRN Other 08/07/24 01/10/25 dutasteride 0.5 mg-tamsulosin ER 1 cap PO HS 08/07/24 01/10/25 0.4 mg capsule ext.release 24hr mphas isosorbide mononitrate 30 mg 30 mg PO QAM 08/07/24 01/10/25 tablet,extended release 24 hr magnesium 250 mg tablet 250 mg PO QAM 08/07/24 01/10/25 multivitamin 1 tab PO DAILY 08/07/24 01/10/25 nitroglycerin 0.4 mg sublingual 0.4 mg sublingual UD 08/07/24 01/10/25 tablet omeprazole 20 mg capsule,delayed 20 mg PO UD 08/07/24 01/10/25 release sertraline 100 mg tablet 200 mg PO UD 08/07/24 01/10/25 Tums 1 tab PO DIRECTED PRN Other 08/22/24 01/10/25 doxazosin 4 mg tablet 8 mg PO HS 08/22/24 01/10/25 quetiapine 25 mg tablet (Seroquel) 25 mg PO HS 08/22/24 01/10/25 calcium 600 mg-D3 800 unit-mag 40 1 tab PO BID 10/01/24 01/10/25 eu-dlbm-uwdk-max-boron chew tablet (Caltrate 600-D Plus Minerals) docusate sodium 100 mg capsule 200 mg PO QAM 10/01/24 01/10/25 (Colace) duloxetine 30 mg capsule,delayed 30 mg PO QAM 10/01/24 01/10/25 release (Cymbalta) ferrous sulfate 325 mg (65 mg 325 mg PO QAM 10/08/24 01/10/25 iron) tablet (Feosol) Probiotic 1 cap PO QAM 10/15/24 01/10/25 ascorbic acid (vitamin C) 500 mg 500 mg PO QAM 10/15/24 01/10/25 tablet (Vitamin C) methimazole 5 mg tablet 5 mg PO UD 10/15/24 01/10/25 metoprolol succinate 50 mg 50 mg PO BID 10/15/24 01/10/25 tablet,extended release 24 hr sucralfate 1 gram tablet 1 g PO UD PRN Other 10/15/24 01/10/25 trazodone 150 mg tablet 150 mg PO UD 10/15/24 01/10/25 acetaminophen 300 mg-codeine 30 mg 1 tab PO Q6H PRN Pain 01/10/25 01/10/25 tablet amlodipine 5 mg tablet (Norvasc) 7.5 mg PO QAM 01/10/25 01/10/25 bumetanide 1 mg tablet 1 mg PO DAILY 01/10/25 01/10/25 lisinopril 20 mg tablet 20 mg PO DAILY 01/10/25 01/10/25 triamcinolone acetonide 0.1 % 1 applic topical DIRECTED 01/10/25 01/10/25 topical cream Previous Rx's Medication Instructions Recorded testosterone 1 pump topical QAM #75 grams 10/29/24 hydrocortisone 5 mg tablet 10 - 20 mg (2 - 4 x 5 mg) PO UD 10/30/24 #540 tabs ticagrelor 90 mg tablet (Brilinta) 90 mg PO BID #180 tabs 11/02/24 pregabalin 50 mg capsule 50 mg PO BID #60 caps 11/03/24 Results & Data (ED) Vital Signs Vital Signs - 24 hr 01/10/25 10:03 01/10/25 10:12 01/10/25 10:36 Temperature 36.7 C Temperature Source Oral Pulse Rate 57 L 58 L 55 L Pulse Rate from SpO2 Sensor 55 L Respiratory Rate 16 18 Respiratory Effort / Characteristics Non-Labored Respiratory Depth Normal Respiratory Pattern Regular Blood Pressure 120/66 128/58 L Blood Pressure Mean 84 81 Pulse Oximetry 96 95 Oxygen Delivery Method Room Air Room Air Sepsis Recent Fever Within 48 Hours No Sepsis New/Unexplained Change in Mental Status N/A Sepsis Action Taken by Nursing No Action Required 01/10/25 11:33 Temperature Temperature Source Pulse Rate 59 L Pulse Rate from SpO2 Sensor Respiratory Rate 19 Respiratory Effort / Characteristics Respiratory Depth Respiratory Pattern Blood Pressure 137/62 Blood Pressure Mean 87 Pulse Oximetry Oxygen Delivery Method Sepsis Recent Fever Within 48 Hours Sepsis New/Unexplained Change in Mental Status Sepsis Action Taken by Nursing Laboratory Data 01/10/25 10:14 01/10/25 10:14 Lab Results 01/10/25 01/10/25 01/10/25 Range/Units 10:14 10:21 10:37 WBC 10.39 (4.8-10.8) K/ul RBC 4.53 L (4.70-6.10) M/uL Hgb 14.4 (14.0-18.0) g/dl POC Hgb 14.6 (14.0-18.0) g/dl Hct 43.6 (42.0-52.0) % POC Hct 43 (42-52) % MCV 96.2 (80.0-100.0) fL MCH 31.8 (25.0-34.0) pg MCHC 33.0 (32.0-36.0) g/dL RDW Std Deviation 47.7 H (36.4-46.3) fL RDW Coeff of Mehnaz 13.5 (11.5-14.5) % Plt Count 127 L (130-400) K/uL MPV 11.1 (9.4-12.4) fL Immature Gran % (Auto) 0.6 % Neut % (Auto) 59.8 % Lymph % (Auto) 27.8 % Hayes % (Auto) 7.1 % Eos % (Auto) 4.1 % Baso % (Auto) 0.6 % Neut # (Auto) 6.21 (1.40-6.50) K/uL Lymph # (Auto) 2.89 (1.20-3.40) K/uL Hayes # (Auto) 0.74 H (0.11-0.59) K/uL Eos # (Auto) 0.43 (0.00-0.50) K/uL Baso # (Auto) 0.06 (0.00-0.20) K/uL Immature Gran # (Auto) 0.06 (0.01-0.20) K/uL PT 10.5 (9.0-12.0) Seconds INR 1.0 (0.9-1.1) APTT 24 (21-31) Seconds PTT Ratio 0.9 POC Sodium 144 (135-144) mmol/L Sodium 143 (136-145) mmol/L POC Potassium 3.9 (3.3-5.0) mmol/L Potassium 4.0 (3.5-5.1) mmol/L POC Chloride 105 (101-112) mmol/L Chloride 108 H (98-107) mmol/L Carbon Dioxide 32 (21-32) mmol/L POC Total CO2 27 (24-31) mmol/L Anion Gap 3 (3-11) POC Anion Gap 16.0 (16-25) mmol/L POC BUN 32 H (7-18) mg/dl BUN 35 H (6-23) mg/dl Creatinine 1.52 H (0.6-1.4) mg/dl POC Creatinine 1.8 H (0.6-1.3) mg/dl Est Cr Clr Drug Dosing 35.6 ml/min eGFR 45.18 BUN/Creatinine Ratio 23.0 H (10-20) Glucose 79 (70-99(Fasting)) mg/dl POC Glucose 84 (70-99) mg/dl POC Glucose (other) 78 (70-99) mg/dl Calcium 9.4 (8.6-10.3) mg/dl POC Ioniz Calcium Ceasar 1.30 (1.12-1.32) mmol/l Magnesium 2.1 (1.7-2.4) mg/dl Total Bilirubin 0.7 (0.2-1.0) mg/dl AST 22 (13-39) U/L ALT 23 (7-52) U/L Alkaline Phosphatase 73 (34-104) U/L Troponin I High Sens 17.1 (0-20) pg/ml Total Protein 6.0 (6.0-8.3) gm/dl Albumin 3.5 (3.4-5.0) gm/dl Globulin 2.5 (2.5-4.0) gm/dl Albumin/Globulin Ratio 1.4 (0.9-2) Administered Medications Sodium Chloride (Nss) 500 mls @ 100 mls/hr IV .Q5H TOD Stop: 01/11/25 02:59 Last Admin: 01/10/25 12:26 Dose: 100 mls/hr Documented By: DELIA Discontinued Medications Aspirin (Aspirin Chew 324 Mg) 81 mg PO NOW STA Stop: 01/10/25 11:10 Last Admin: 01/10/25 11:31 Dose: 81 mg Documented By: DELIA Sodium Chloride (Nss) 1,000 mls @ 999 mls/hr IV .Q1H1M ONE Stop: 01/10/25 11:17 Last Infusion: 01/10/25 12:27 Dose: Infused Documented By: Admin: 01/10/25 10:37 Dose: 999 mls/hr Documented By: DELIA Ioversol (Optiray 320 125ml) 118 ml IV ONCE ONE Stop: 01/10/25 10:31 Last Admin: 01/10/25 10:31 Dose: 118 ml Documented By: RUDY Imaging Data Radiologist's Impression: Head CT 01/10/25 10:14 EXAM: CT Head Without Intravenous Contrast INDICATION: Neurologic deficit TECHNIQUE: Axial computed tomography images of the head/brain without intravenous contrast. Sagittal and/or coronal reformats are provided. Sagittal and coronal reformatted images were created and reviewed. This CT exam was performed using one or more of the following dose reduction techniques: automated exposure control, adjustment of the mA and/or kV according to patient size, and/or use of iterative reconstruction technique. COMPARISON: 10/15/2024 FINDINGS: Limitations: None. Brain and extra-axial spaces: There is age appropriate cortical atrophy and chronic ischemic periventricular white matter hypodensity. No acute infarct, hemorrhage or mass noted. Bones/joints: No acute changes. Soft tissues: No significant abnormality noted. Vasculature: No acute abnormality noted. Sinuses: No layering fluid in the visualized portions of the paranasal sinuses. Mastoid air cells: No mastoid effusion. Orbits: No significant abnormality noted. IMPRESSION: Cerebral atrophy. No acute changes. ACT 112: N/A Electronically signed by Dunia Galvan 01-10-2025 10:46 AM Head CTA 01/10/25 10:14 EXAM: CT Angiography Head and Neck With Intravenous Contrast INDICATION: Neurologic deficit TECHNIQUE: [place]/head and neck CT angiography protocol performed with intravenous contrast. Sagittal and coronal reformatted images were created and reviewed. This CT exam was performed using one or more of the following dose reduction techniques: automated exposure control, adjustment of the mA and/or kV according to patient size, and/or use of iterative reconstruction technique. MIP reconstructed images were created and reviewed. CONTRAST: 118ml of Optiray 320 was administered intravenously. COMPARISON: None. FINDINGS: HEAD: Right anterior cerebral artery: No abnormality noted. No occlusion or significant stenosis. Anterior communicating artery is present. No aneurysm. Right middle cerebral artery: No abnormality noted. No occlusion or significant stenosis. No aneurysm. Right posterior cerebral artery: No abnormality noted. No occlusion or significant stenosis. No aneurysm. Right intracranial internal carotid artery: No abnormality noted. No significant stenosis. No dissection or occlusion. Right intracranial vertebral artery: No abnormality noted. No significant stenosis. No dissection or occlusion. Left anterior cerebral artery: No abnormality noted. No occlusion or significant stenosis. No aneurysm. Left middle cerebral artery: No abnormality noted. No occlusion or significant stenosis. No aneurysm. Left posterior cerebral artery: No abnormality noted. No occlusion or significant stenosis. No aneurysm. Left intracranial internal carotid artery: No abnormality noted. No significant stenosis. No dissection or occlusion. Left intracranial vertebral artery: No abnormality noted. No significant stenosis. No dissection or occlusion. Basilar artery: No abnormality noted. No occlusion or significant stenosis. No aneurysm. Other vasculature: No vascular malformation. NECK: Right common carotid artery: No abnormality noted. No significant stenosis. No dissection or occlusion. Right extracranial internal carotid artery: There is moderate plaque at the bulb with less than 50% stenosis. No significant stenosis. No dissection or occlusion. Right external carotid artery: Moderate proximal atherosclerotic plaque noted d. No occlusion. Right extracranial vertebral artery: No abnormality noted. No significant stenosis. No dissection or occlusion. Left common carotid artery: No abnormality noted. No significant stenosis. No dissection or occlusion. Left extracranial internal carotid artery: Moderate atherosclerotic calcification at the bulb and proximally with up to 50% stenosis. No dissection or occlusion. Left external carotid artery: No abnormality noted. No occlusion. Left extracranial vertebral artery: Moderate proximal atherosclerotic plaque noted. No significant stenosis. No dissection or occlusion. Lung apices: No significant abnormality noted. HEAD and NECK: Bones/joints: No significant abnormality. Soft tissues: No abnormality noted. Thyroid: Multinodular goiter. CAROTID STENOSIS REFERENCE USING NASCET CRITERIA: % ICA stenosis = (1 - narrowest ICA diameter/diameter of distal cervical ICA) x 100. Mild - <50% stenosis. Moderate - 50-69% stenosis. Severe - 70-94% stenosis. Near occlusion - 95-99% stenosis. Occluded - 100% stenosis. IMPRESSION: 1. No large vessel occlusion, aneurysm or dissection. 2. Cervical carotid atherosclerosis with up to 50% stenosis left proximal cervical ICA. 3. Prominent calcification proximal bilateral external carotid arteries without occlusion. Results of all studies phoned to Dr. Del Rio at approximately 10:50 AM 01/10/2025 ACT 112: N/A Electronically signed by Dunia Galvan 01-10-2025 10:52 AM Neck CTA 01/10/25 10:14 EXAM: CT Angiography Head and Neck With Intravenous Contrast INDICATION: Neurologic deficit TECHNIQUE: [place]/head and neck CT angiography protocol performed with intravenous contrast. Sagittal and coronal reformatted images were created and reviewed. This CT exam was performed using one or more of the following dose reduction techniques: automated exposure control, adjustment of the mA and/or kV according to patient size, and/or use of iterative reconstruction technique. MIP reconstructed images were created and reviewed. CONTRAST: 118ml of Optiray 320 was administered intravenously. COMPARISON: None. FINDINGS: HEAD: Right anterior cerebral artery: No abnormality noted. No occlusion or significant stenosis. Anterior communicating artery is present. No aneurysm. Right middle cerebral artery: No abnormality noted. No occlusion or significant stenosis. No aneurysm. Right posterior cerebral artery: No abnormality noted. No occlusion or significant stenosis. No aneurysm. Right intracranial internal carotid artery: No abnormality noted. No significant stenosis. No dissection or occlusion. Right intracranial vertebral artery: No abnormality noted. No significant stenosis. No dissection or occlusion. Left anterior cerebral artery: No abnormality noted. No occlusion or significant stenosis. No aneurysm. Left middle cerebral artery: No abnormality noted. No occlusion or significant stenosis. No aneurysm. Left posterior cerebral artery: No abnormality noted. No occlusion or significant stenosis. No aneurysm. Left intracranial internal carotid artery: No abnormality noted. No significant stenosis. No dissection or occlusion. Left intracranial vertebral artery: No abnormality noted. No significant stenosis. No dissection or occlusion. Basilar artery: No abnormality noted. No occlusion or significant stenosis. No aneurysm. Other vasculature: No vascular malformation. NECK: Right common carotid artery: No abnormality noted. No significant stenosis. No dissection or occlusion. Right extracranial internal carotid artery: There is moderate plaque at the bulb with less than 50% stenosis. No significant stenosis. No dissection or occlusion. Right external carotid artery: Moderate proximal atherosclerotic plaque noted d. No occlusion. Right extracranial vertebral artery: No abnormality noted. No significant stenosis. No dissection or occlusion. Left common carotid artery: No abnormality noted. No significant stenosis. No dissection or occlusion. Left extracranial internal carotid artery: Moderate atherosclerotic calcification at the bulb and proximally with up to 50% stenosis. No dissection or occlusion. Left external carotid artery: No abnormality noted. No occlusion. Left extracranial vertebral artery: Moderate proximal atherosclerotic plaque noted. No significant stenosis. No dissection or occlusion. Lung apices: No significant abnormality noted. HEAD and NECK: Bones/joints: No significant abnormality. Soft tissues: No abnormality noted. Thyroid: Multinodular goiter. CAROTID STENOSIS REFERENCE USING NASCET CRITERIA: % ICA stenosis = (1 - narrowest ICA diameter/diameter of distal cervical ICA) x 100. Mild - <50% stenosis. Moderate - 50-69% stenosis. Severe - 70-94% stenosis. Near occlusion - 95-99% stenosis. Occluded - 100% stenosis. IMPRESSION: 1. No large vessel occlusion, aneurysm or dissection. 2. Cervical carotid atherosclerosis with up to 50% stenosis left proximal cervical ICA. 3. Prominent calcification proximal bilateral external carotid arteries without occlusion. Results of all studies phoned to Dr. Del Rio at approximately 10:50 AM 01/10/2025 ACT 112: N/A Electronically signed by Dunia Galvan 01-10-2025 10:52 AM Discharge Plan Visit Data Chief Complaint: Dizziness Stated Complaint: DIZZY ED Provider: Jef Del Rio Discharge Problem: TIA (transient ischemic attack), Confusion Forms Stand Alone Forms: My [facility] Prescriptions Prescriptions: No Action Caltrate 600-D Plus Minerals 600 mg calcium- 800 unit-40 mg tablet,chewable 1 tab PO BID Rx Instructions: 01/10- otc unable to verify docusate sodium [Colace] 100 mg capsule 200 mg PO QAM Rx Instructions: 01/10- otc unable to verify duloxetine [Cymbalta] 30 mg capsule,delayed release(DR/EC) 30 mg PO QAM testosterone 20.25 mg/1.25 gram (1.62 %) gel in metered-dose pump 1 pump topical QAM Qty: 75 5RF hydrocortisone 5 mg tablet 10 - 20 mg PO UD Qty: 540 3RF Rx Instructions: orally; take 20 mg (4 tabs) in the Mornings and 10 mg (2 tabs) in the Evenings Brilinta 90 mg tablet 90 mg PO BID Qty: 180 3RF pregabalin 50 mg capsule 50 mg PO BID Qty: 60 3RF ferrous sulfate [Feosol] 325 mg (65 mg iron) tablet 325 mg PO QAM Rx Instructions: 01/10- otc unable to verify/no fill history atorvastatin 40 mg tablet 40 mg PO DAILY isosorbide mononitrate 30 mg tablet extended release 24 hr 30 mg PO QAM sertraline 100 mg tablet 200 mg PO UD Rx Instructions: 200 mg po daily. last filled 07/16/24 90 day supply aspirin 81 mg Tablet,Delayed Release (Dr/Ec) 81 mg PO DAILY Rx Instructions: 01/10- otc unable to verify dicyclomine 20 mg tablet 20 mg PO TID PRN (Reason: Other) nitroglycerin 0.4 mg tablet, sublingual 0.4 mg sublingual UD Rx Instructions: q5min prn chest pain x3. last filled 07/23/24 14 day supply omeprazole 20 mg capsule,delayed release(DR/EC) 20 mg PO UD Rx Instructions: 20 mg po BID. isn't sure if pt still takes this med. 01/10-last filled 07/23/24 90 day supply multivitamin Tablet 1 tab PO DAILY Rx Instructions: 01/10- otc unable to verify magnesium 250 mg Tablet 250 mg PO QAM Rx Instructions: 01/10- otc unable to verify dutasteride-tamsulosin 0.5-0.4 mg Capsule, Er Multiphase 24 Hr 1 cap PO HS Tums 1 tab PO DIRECTED PRN (Reason: Other) Rx Instructions: 01/10- otc unable to verify quetiapine [Seroquel] 25 mg Tablet 25 mg PO HS Rx Instructions: doesnt have dose on her list. doxazosin 4 mg Tablet 8 mg PO HS sucralfate 1 gram Tablet 1 g PO UD PRN (Reason: Other) Rx Instructions: 01/10- original directions: 1 g po as directed prn. No fill history unable to verify. per , pt sometimes takes medication. Unknown freq. ascorbic acid (vitamin C) [Vitamin C] 500 mg Tablet 500 mg PO QAM Rx Instructions: 01/10- otc unable to verify Probiotic 1 cap PO QAM Rx Instructions: 01/10- otc unable to verify methimazole 5 mg tablet 5 mg PO UD Rx Instructions: 5 mg po daily. last filled 07/29/24 90 day metoprolol succinate 50 mg tablet extended release 24 hr 50 mg PO BID trazodone 150 mg tablet 150 mg PO UD Rx Instructions: 150 mg po hs. last filled 08/10/24 90 day supply amlodipine [Norvasc] 5 mg tablet 7.5 mg PO QAM Rx Instructions: original: 5 mg po qam. Most recent fill (11/19 90 day) has instructions of 7.5mg (1 and 1/2 tabs) po daily triamcinolone acetonide 0.1 % cream 1 applic topical DIRECTED Rx Instructions: Apply to genital area once daily for 8 weeks for phimosis lisinopril 20 mg tablet 20 mg PO DAILY acetaminophen-codeine 300-30 mg tablet 1 tab PO Q6H PRN (Reason: Pain) bumetanide 1 mg tablet 1 mg PO DAILY Referrals Referrals: Shalom Lieberman MD [Primary Care Provider] -
[2025-01-10 10:31] LABS: Basophils # (auto) 0.06 K/uL (0.00-0.20); Basophils % (auto) 0.6 %; Eosinophils # (auto) 0.43 K/uL (0.00-0.50); Eosinophils % (auto) 4.1 %; Hematocrit (blood only) 43.6 % (42.0-52.0); Hemoglobin 14.4 g/dl (14.0-18.0); Immature Granulocytes # (auto) 0.06 K/uL (0.01-0.20); Immature Granulocytes % (auto) 0.6 %; Lymphocytes # (auto) 2.89 K/uL (1.20-3.40); Lymphocytes % (auto) 27.8 %; Mean Corpuscular Hemoglobin 31.8 pg (25.0-34.0); Mean Corpuscular Volume 96.2 fL (80.0-100.0); Mean Platelet Volume 11.1 fL (9.4-12.4); Monocytes # (auto) 0.74 K/uL (0.11-0.59); Monocytes % (auto) 7.1 %; Neutrophils # (auto) 6.21 K/uL (1.40-6.50); Neutrophils % (auto) 59.8 %; Platelet Count 127 K/uL (130-400); RDW Coefficient of Variation 13.5 % (11.5-14.5); RDW Standard Deviation 47.7 fL (36.4-46.3); Red Blood Count 4.53 M/uL (4.70-6.10); White Blood Count 10.39 K/ul (4.8-10.8)
[2025-01-10] MEDS: OPTIRAY 320 125ml IV ONE (10:31)
[2025-01-10 10:33] LABS: iSTAT Creatinine 1.8 mg/dl (0.6-1.3); iSTAT Hemoglobin 14.6 g/dl (14.0-18.0); iSTAT Ionized Calcium 1.3 mmol/l (1.12-1.32); iSTAT Potassium 3.9 mmol/L (3.3-5.0)
[2025-01-10] MEDS: SODIUM CHLORIDE 0.9% 1,000 ML IV ONE (10:37)
[2025-01-10 10:46] LABS: Albumin Globulin Ratio 1.4 (0.9-2); Albumin Level 3.5 gm/dl (3.4-5.0); Bilirubin,Total 0.7 mg/dl (0.2-1.0); Calcium 9.4 mg/dl (8.6-10.3); Creatinine Clr Calc Pharmacy 35.6 ml/min; Globulin 2.5 gm/dl (2.5-4.0); Magnesium 2.1 mg/dl (1.7-2.4)
--- NOTE | 2025-01-10 10:46 | CT Scan Report ---
EXAM: CT Head Without Intravenous Contrast INDICATION: Neurologic deficit TECHNIQUE: Axial computed tomography images of the head/brain without intravenous contrast. Sagittal and/or coronal reformats are provided. Sagittal and coronal reformatted images were created and reviewed. This CT exam was performed using one or more of the following dose reduction techniques: automated exposure control, adjustment of the mA and/or kV according to patient size, and/or use of iterative reconstruction technique. COMPARISON: 10/15/2024 FINDINGS: Limitations: None. Brain and extra-axial spaces: There is age appropriate cortical atrophy and chronic ischemic periventricular white matter hypodensity. No acute infarct, hemorrhage or mass noted. Bones/joints: No acute changes. Soft tissues: No significant abnormality noted. Vasculature: No acute abnormality noted. Sinuses: No layering fluid in the visualized portions of the paranasal sinuses. Mastoid air cells: No mastoid effusion. Orbits: No significant abnormality noted. IMPRESSION: Cerebral atrophy. No acute changes. ACT 112: N/A Electronically signed by Dunia Galvan 01-10-2025 10:46 AM
[2025-01-10 10:52] LABS: Troponin I High Sensitivity 17.1 pg/ml (0-20)
--- NOTE | 2025-01-10 10:53 | CT Scan Report ---
EXAM: CT Angiography Head and Neck With Intravenous Contrast INDICATION: Neurologic deficit TECHNIQUE: [place] [facility] [place]/head and neck CT angiography protocol performed with intravenous contrast. Sagittal and coronal reformatted images were created and reviewed. This CT exam was performed using one or more of the following dose reduction techniques: automated exposure control, adjustment of the mA and/or kV according to patient size, and/or use of iterative reconstruction technique. MIP reconstructed images were created and reviewed. CONTRAST: 118ml of Optiray 320 was administered intravenously. COMPARISON: None. FINDINGS: HEAD: Right anterior cerebral artery: No abnormality noted. No occlusion or significant stenosis. Anterior communicating artery is present. No aneurysm. Right middle cerebral artery: No abnormality noted. No occlusion or significant stenosis. No aneurysm. Right posterior cerebral artery: No abnormality noted. No occlusion or significant stenosis. No aneurysm. Right intracranial internal carotid artery: No abnormality noted. No significant stenosis. No dissection or occlusion. Right intracranial vertebral artery: No abnormality noted. No significant stenosis. No dissection or occlusion. Left anterior cerebral artery: No abnormality noted. No occlusion or significant stenosis. No aneurysm. Left middle cerebral artery: No abnormality noted. No occlusion or significant stenosis. No aneurysm. Left posterior cerebral artery: No abnormality noted. No occlusion or significant stenosis. No aneurysm. Left intracranial internal carotid artery: No abnormality noted. No significant stenosis. No dissection or occlusion. Left intracranial vertebral artery: No abnormality noted. No significant stenosis. No dissection or occlusion. Basilar artery: No abnormality noted. No occlusion or significant stenosis. No aneurysm. Other vasculature: No vascular malformation. NECK: Right common carotid artery: No abnormality noted. No significant stenosis. No dissection or occlusion. Right extracranial internal carotid artery: There is moderate plaque at the bulb with less than 50% stenosis. No significant stenosis. No dissection or occlusion. Right external carotid artery: Moderate proximal atherosclerotic plaque noted d. No occlusion. Right extracranial vertebral artery: No abnormality noted. No significant stenosis. No dissection or occlusion. Left common carotid artery: No abnormality noted. No significant stenosis. No dissection or occlusion. Left extracranial internal carotid artery: Moderate atherosclerotic calcification at the bulb and proximally with up to 50% stenosis. No dissection or occlusion. Left external carotid artery: No abnormality noted. No occlusion. Left extracranial vertebral artery: Moderate proximal atherosclerotic plaque noted. No significant stenosis. No dissection or occlusion. Lung apices: No significant abnormality noted. HEAD and NECK: Bones/joints: No significant abnormality. Soft tissues: No abnormality noted. Thyroid: Multinodular goiter. CAROTID STENOSIS REFERENCE USING NASCET CRITERIA: % ICA stenosis = (1 - narrowest ICA diameter/diameter of distal cervical ICA) x 100. Mild - <50% stenosis. Moderate - 50-69% stenosis. Severe - 70-94% stenosis. Near occlusion - 95-99% stenosis. Occluded - 100% stenosis. IMPRESSION: 1. No large vessel occlusion, aneurysm or dissection. 2. Cervical carotid atherosclerosis with up to 50% stenosis left proximal cervical ICA. 3. Prominent calcification proximal bilateral external carotid arteries without occlusion. Results of all studies phoned to Dr. Del Rio at approximately 10:50 AM 01/10/2025 ACT 112: N/A Electronically signed by Dunia Galvan 01-10-2025 10:52 AM
[2025-01-10 11:13] LABS: Partial Thromboplastin Ratio 0.9; Partial Thromboplastin Time 24 Seconds (21-31); Prothrombin Time 10.5 Seconds (9.0-12.0)
[2025-01-10] MEDS: ASPIRIN CHEW 324 MG PO STA (11:31)
[2025-01-10] MEDS ORDERED: POLYETHYLENE (MIRALAX) 17 GM PACK PO PRN (11:54)
[2025-01-10] MEDS ORDERED: ACETAMINOPHEN 325 MG TAB PO PRN (11:54)
[2025-01-10] MEDS ORDERED: ALUMINUM/MAGNESIUM SUSP 30 ML UDC PO PRN (11:54)
--- NOTE | 2025-01-10 12:20 | History & Physical Report ---
Date of Service January 10, 2025 Assessment & Plan (1) Dizziness: Plan Assessment/plan Dizziness, likely orthostatic hypotension Possible TIA/stroke Patient presented to the hospital with dizziness after standing up suddenly. Reports history of similar symptoms in the past Lisinopril 20 mg added on 01/08 as outpatient for high blood pressure. . On multiple antihypertensives including amlodipine, doxazosin, Bumex, metoprolol. Imdur. CT head, CTA head and neck on admission negative for any acute finding Electrolytes within normal limits Continue IV fluids with normal saline at 100 cc/h for 1.5 L Orthostatic BPcheck every 8 hours Obtain MRI brain to rule out stroke PT OT evaluation Fall precautions Will resume metoprolol; hold other antihypertensive for now. Plan to discontinue Bumex as patient had discontinued it previously during his last admission but somehow was restarted. Discontinue doxazosin as patient is already on to dulastaride- tamsulosin at night which could result in orthostatic hypotension. Will gradually resume other antihypertensives depending on the blood pressure. History of CAD status post stent in ontinue on aspirin, Brilinta, obtain echocardiogram. Continue on statin, metoprolol. Hold Imdur. 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 -Patient taking hydrocortisone 20 mg in the morning and 10 mg at night. I discussed with patient that hydrocortisone at night likely results in poor sleep which patient reports that he is suffering from. I discussed it to changing it in the afternoon; needs to be taken at least 4-hour before bedtime. Patient agrees. History of multinodular goiter, hyperthyroidismpreviously on methimazole; currently not on it. Obtain TSH in a.m. Generalized anxiety disordercontinue on home meds CKD stage IIIacreatinine around baseline; BMP daily BPHcontinue on dutasteride-tamsulosin, dc doxazosin. History of chronic back painon Tylenolcodeine as needed and Lyrica Insomnia- on trazodone at night DVT prophylaxis heparin Full code Time spent evaluating patient, direct bedside care, chart review, placing orders, interpretation of diagnostic studies, discussion with consultants, patient, and family members, as well as other required patient management activities is 75 minutes Please note the above document was generated using voice recognition software. It may contain grammatical, syntax or spelling errors. 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 The dizziness started when he stood up; he was initially found to be confused when he presented to the ED and was leaning to the right side with arm weakness. Symptoms resolved spontaneously. Patient reports having similar symptoms in the past while standing up as well. Denies any history of loss of consciousness or fall. Telestroke consultation was done. Patient denies any focal weakness/numbness at this time. He denies visual changes, fever, chills, chest pain or shortness of breath. Patient was recently seen by his primary care doctor on 01/08 stating that his blood pressure has been on the higher side; systolic of 170s. Patient was taking amlodipine 7.5 mg, Bumex 1 mg daily, Imdur and metoprolol 50 mg. Patient was started on lisinopril 20 mg once a day. On presentation to the ED, he was found to have blood pressure of 120/66; which is lower compared to his previous baseline, afebrile and was saturating well on room air. Creatinine around baseline of 1.5; potassium and sodium within normal limits. Patient underwent CT head, CTA head and neck which was within normal limits. Patient was then referred for admission. Allergies Allergy/AdvReac Type Severity Reaction Status Date / Time lidocaine [From Lidoderm] AdvReac Mild Itching Verified 10/21/24 14:22 Home Medications Medication Instructions Recorded Confirmed Type aspirin 81 mg tablet,delayed 81 mg PO DAILY 08/07/24 01/10/25 History release atorvastatin 40 mg tablet 40 mg PO DAILY 08/07/24 01/10/25 History dicyclomine 20 mg tablet 20 mg PO TID PRN Other 08/07/24 01/10/25 History dutasteride 0.5 mg-tamsulosin ER 1 cap PO HS 08/07/24 01/10/25 History 0.4 mg capsule ext.release 24hr mphas isosorbide mononitrate 30 mg 30 mg PO QAM 08/07/24 01/10/25 History tablet,extended release 24 hr magnesium 250 mg tablet 250 mg PO QAM 08/07/24 01/10/25 History multivitamin 1 tab PO DAILY 08/07/24 01/10/25 History nitroglycerin 0.4 mg sublingual 0.4 mg sublingual UD 08/07/24 01/10/25 History tablet omeprazole 20 mg capsule,delayed 20 mg PO UD 08/07/24 01/10/25 History release sertraline 100 mg tablet 200 mg PO UD 08/07/24 01/10/25 History Tums 1 tab PO DIRECTED PRN Other 08/22/24 01/10/25 History doxazosin 4 mg tablet 8 mg PO HS 08/22/24 01/10/25 History quetiapine 25 mg tablet (Seroquel) 25 mg PO HS 08/22/24 01/10/25 History calcium 600 mg-D3 800 unit-mag 40 1 tab PO BID 10/01/24 01/10/25 History ed-sgmg-jebg-max-boron chew tablet (Caltrate 600-D Plus Minerals) docusate sodium 100 mg capsule 200 mg PO QAM 10/01/24 01/10/25 History (Colace) duloxetine 30 mg capsule,delayed 30 mg PO QAM 10/01/24 01/10/25 History release (Cymbalta) ferrous sulfate 325 mg (65 mg 325 mg PO QAM 10/08/24 01/10/25 History iron) tablet (Feosol) Probiotic 1 cap PO QAM 10/15/24 01/10/25 History ascorbic acid (vitamin C) 500 mg 500 mg PO QAM 10/15/24 01/10/25 History tablet (Vitamin C) methimazole 5 mg tablet 5 mg PO UD 10/15/24 01/10/25 History metoprolol succinate 50 mg 50 mg PO BID 10/15/24 01/10/25 History tablet,extended release 24 hr sucralfate 1 gram tablet 1 g PO UD PRN Other 10/15/24 01/10/25 History trazodone 150 mg tablet 150 mg PO UD 10/15/24 01/10/25 History testosterone 1 pump topical QAM #75 grams 10/29/24 01/10/25 Rx hydrocortisone 5 mg tablet 10 - 20 mg (2 - 4 x 5 mg) PO UD 10/30/24 01/10/25 Rx #540 tabs ticagrelor 90 mg tablet (Brilinta) 90 mg PO BID #180 tabs 11/02/24 01/10/25 Rx pregabalin 50 mg capsule 50 mg PO BID #60 caps 11/03/24 01/10/25 Rx acetaminophen 300 mg-codeine 30 mg 1 tab PO Q6H PRN Pain 01/10/25 01/10/25 History tablet amlodipine 5 mg tablet (Norvasc) 7.5 mg PO QAM 01/10/25 01/10/25 History bumetanide 1 mg tablet 1 mg PO DAILY 01/10/25 01/10/25 History lisinopril 20 mg tablet 20 mg PO DAILY 01/10/25 01/10/25 History triamcinolone acetonide 0.1 % 1 applic topical DIRECTED 01/10/25 01/10/25 History topical cream Past Med/Surg History Problem List (Updated 01/10/25 @ 12:12 by Mars Chavez MD) Dizziness Balanitis Phimosis Spinal stenosis of lumbar region with radiculopathy Severe uncontrolled hypertension Headache (Acute) Anxiety (Acute) Spinal stenosis (Acute) Isolated TSH deficiency Hyperthyroidism Back pain of lumbar region with sciatica (Acute) Adrenal insufficiency (Acute) Prediabetes 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 Trochanteric bursitis of right hip Dyslipidemia Osteopenia Prostatic hypertrophy ACTH deficiency (Chronic) 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) Medical History Vitamin D deficiency History of DVT (deep vein thrombosis) Blind left eye Chronic cholecystitis Multiple renal cysts BPH (benign prostatic hyperplasia) IBS (irritable bowel syndrome) GERD (gastroesophageal reflux disease) History of melanoma Hearing deficit Lumbar herniated disc Surgical History Hx laparoscopic cholecystectomy (06/03/19) History of skin graft History of parotidectomy History of craniotomy Status post trigger finger release History of esophagogastroduodenoscopy (EGD) History of colonoscopy History of melanoma excision Family History Sister Family hx of colon cancer Father Tobacco use Coronary heart disease Mother Diverticulosis of intestine Sister Ovarian cancer Colon cancer Grandfather Cancer Aunt Cancer Uncle Cancer Grandmother (Maternal) Cancer Other No significant family history Social History Smoking Status: Never smoker Tobacco Type: Cigarettes Second Hand Exposure: No; Do You Dip or Chew Tobacco: No; Hx Alcohol Use: No Hx Substance Use: No Preferred Language: Latvian Communication Ability: Effective Visual Impairment: No Limitations Cereal Supervisor Required: No Beliefs That Will Affect Care: None Current Living Situation: Spouse Current Living Situation Comment: lives with 2 cats as well Feels Safe at Home: Yes Assistive Devices: Walker Review of Systems Review of Systems: All systems reviewed & are unremarkable except as noted in Subjective Physical Exam Physical Exam: On physical examination; Constitutional: WD/WN, vitals as above, NAD, sitting up in bed, pleasant, conversing easily Respiratory: normal respiratory effort, lungs clear to auscultation, no wheeze, rales, rhonchi. Normal insp/exp effort, no accessory muscle use Cardiovascular: RRR, no murmur, no edema Vessels: no JVD or carotid bruit Chest: normal inspection of chest Abdomen: normal bowel sounds, soft, nontender, no hepatosplenomegaly Musculoskeletal: no cyanosis or clubbing, extremities motor strength 5/5 Skin: no rashes, warm and dry normal turgor Neurologic: PERRL, EOMI, accommodation nl, no face palsy, no dysarthria CN's II- XI intact bilaterally and moves all extremities Psychiatric: A+Ox3, euthymic affect Results & Data Results & Data Vital Signs (Past 12 Hours) Vital Signs Temp Pulse Resp BP Pulse Ox O2 Del Method 01/10/25 11:33 59 L 19 137/62 01/10/25 10:36 55 L 18 128/58 L 95 Room Air 01/10/25 10:12 58 L 01/10/25 10:03 36.7 C 57 L 16 120/66 96 Room Air
[2025-01-10] MEDS: SODIUM CHLORIDE 0.9% 500 ML IV SCH (12:26)
[2025-01-10] MEDS: diazePAM 5 MG TABLET PO PRN (13:18)
[2025-01-10] MEDS ORDERED: ACETAMINOPHEN W/CODEINE #3 1 TAB PO PRN (14:18)
[2025-01-10] MEDS ORDERED: DICYCLOMINE HCL 20 MG TAB PO PRN (14:18)
--- NOTE | 2025-01-10 14:22 | Magnetic Resonance Report ---
MRI of the brain performed without IV contrast History: Confusion Comparison: None Technique: Sagittal T1-weighted and axial T2-weighted, T2/FLAIR and diffusion-weighted with ADC map images of the brain were obtained without IV contrast. Findings: No evidence for intracranial mass lesion, mass-effect, midline shift, or abnormal extra-axial fluid collection. There is marked generalized cerebral atrophy. No abnormally reduced diffusion or evidence for acute infarct. Normal intravascular flow voids. Impression: No acute intracranial pathology Electronically signed by Xander Montes 01-10-2025 2:21 PM
[2025-01-10] MEDS: HYDROCORTISONE 10 MG TAB PO SCH (15:34)
[2025-01-10] MEDS: HEPARIN SOD 5,000 UNIT/0.5 ML VIAL SQ SCH (15:35)
[2025-01-10] MEDS: FINASTERIDE 5 MG TAB PO SCH (20:29)
[2025-01-10] MEDS: QUEtiapine FUMARATE 25 MG TABLET PO SCH (20:31)
[2025-01-10] MEDS: METOPROLOL SUCC 50MG EXT REL TAB PO SCH (20:32)
[2025-01-10] MEDS: TICAGRELOR 90 MG TAB PO SCH (20:32)
[2025-01-10] MEDS: TAMSULOSIN HCL 0.4 MG CAP PO SCH (20:32)
[2025-01-10] MEDS: PREGABALIN 50 MG CAP PO SCH (20:37)
[2025-01-10] MEDS: traZODone HCL 50 MG TAB PO SCH (20:37)
[2025-01-10] MEDS ORDERED: [UNRECOGNIZED DRUG - OTHER] PO SCH (21:00)
[2025-01-11 07:06] LABS: Basophils # (auto) 0.05 K/uL (0.00-0.20); Basophils % (auto) 0.6 %; Eosinophils # (auto) 0.54 K/uL (0.00-0.50); Hematocrit (blood only) 37.8 % (42.0-52.0); Hemoglobin 12.6 g/dl (14.0-18.0); Immature Granulocytes # (auto) 0.06 K/uL (0.01-0.20); Immature Granulocytes % (auto) 0.7 %; Lymphocytes # (auto) 1.99 K/uL (1.20-3.40); Lymphocytes % (auto) 22.3 %; Mean Corpuscular Hemoglobin 32.2 pg (25.0-34.0); Mean Corpuscular Hgb Conc 33.3 g/dL (32.0-36.0); Mean Corpuscular Volume 96.7 fL (80.0-100.0); Mean Platelet Volume 11.4 fL (9.4-12.4); Monocytes # (auto) 0.66 K/uL (0.11-0.59); Monocytes % (auto) 7.4 %; Neutrophils # (auto) 5.64 K/uL (1.40-6.50); Platelet Count 110 K/uL (130-400); RDW Coefficient of Variation 13.7 % (11.5-14.5); RDW Standard Deviation 48.8 fL (36.4-46.3); Red Blood Count 3.91 M/uL (4.70-6.10); White Blood Count 8.94 K/ul (4.8-10.8)
[2025-01-11 07:26] LABS: Anion Gap 3 (3-11); BUN Creatinine Ratio 21.6 (10-20); Blood Urea Nitrogen 32 mg/dl (6-23); Carbon Dioxide 28 mmol/L (21-32); Chloride 113 mmol/L (98-107); Creatinine Clr Calc Pharmacy 36.6 ml/min; Glucose 72 mg/dl (70-99(Fasting)); Potassium 4.2 mmol/L (3.5-5.1); Sodium 144 mmol/L (136-145)
[2025-01-11 07:41] LABS: Thyroid Stimulating Hormone < 0.010 uIu/ml (0.300-4.500)
[2025-01-11 07:46] VITALS: TEMP 97.9; O2SAT 96
[2025-01-11] MEDS: SERTRALINE HCL 100 MG TABLET PO SCH (08:41)
[2025-01-11] MEDS: ATORVASTATIN 40 MG TAB PO SCH (08:41)
[2025-01-11] MEDS: ASCORBIC ACID 500 MG TAB PO SCH (08:42)
[2025-01-11] MEDS: DOCUSATE SODIUM 100 MG CAP PO SCH (08:42)
[2025-01-11] MEDS: MAGNESIUM OXIDE 400 MG TAB PO SCH (08:42)
[2025-01-11] MEDS: HYDROCORTISONE 10 MG TAB PO SCH (08:42)
[2025-01-11] MEDS: DULoxetine HCL 30 MG CAP PO SCH (08:43)
[2025-01-11] MEDS: MULTIVITAMIN TAB PO SCH (08:43)
[2025-01-11] MEDS: ADVANCED PROBIOTIC 625 MG CAPSULE PO SCH (08:43)
[2025-01-11] MEDS: ASPIRIN 81 MG ECTAB PO SCH (08:44)
[2025-01-11] MEDS: SUCRALFATE 1 GM TAB PO PRN (08:44)
[2025-01-11] MEDS: FERROUS SULFATE 325 MG TAB PO SCH (08:44)
[2025-01-11] MEDS: amLODIPine BESYLATE 5 MG TAB PO SCH (09:06)
[2025-01-11] MEDS: ISOSORBIDE MONO EXTENDED REL 30 MG TABCR PO SCH (09:06)
[2025-01-11] MEDS: lisinopril 10 MG TAB PO SCH (11:42)
--- NOTE | 2025-01-11 15:02 | Discharge Summary ---
Discharge Summary Date of Service January 11, 2025 Principal Dx & Hospital Course #1 = Principal Diagnosis (1) Dizziness: Plan Mr. Wilkerson is an 84-year-old gentleman with past medical history that includes CAD s/p recent stent placement 06/2024, hypertension, hyperlipidemia, history of pituitary adenoma surgery, panhypopituitarism (growth hormone deficiency, ACTH deficiency, central hypogonadism, toxic multinodular goiter as per records),hyperprolactinemia as per records, chronic steroid Rx, CKD III, chronic anemia (baseline hemoglobin 12-13), melanoma as per records BPH, anxiety/mood disorder, history of DVT as per records, chronic back pain secondary to LSS, past tobacco abuse who presented to ED due to dizziness, headache, and weakness on 01/10. He reports started lisinopril days prior to symptoms--and after standing in orthodoxy, he felt his head feel heavy, dizzy and confused, prompting presentation to ED. His pressures were noted to be relative hypotensive on admission. Patient ACEi was held and his doxazosin, with pressures upwards to 150-170s. Imaging was reviewed, noting no signs of acute pathology on MRI suggestive of infarct, and CTA with Cervical carotid atherosclerosis with up to 50% stenosis left proximal cervical ICA and Prominent calcification proximal bilateral external carotid arteries without occlusion. Patient already on max therapy for secondary prevention for CAD with ASA and plavix. telestroke recommended increasing statin to 80mg daily. On day of discharge, patient was at baseline and pressures still elevated there fore a trial of 10mg lisinopril was started. Patient with pressures in 110-120s. Given age and chronic ischemic changes on CT, goal BP at this time will be <140; however, suspect that tight control in 84 yo gentleman with chronic symptoms may be too aggressive. #Dizziness, presyncope suspect orthostatic hypotension #Possible TIA MRI negative for stroke Patient to continue on ASCVD secondary prevention with ASA and Brilinta Increased home Statin to 80mg daily Back at baseline, independent in room on day of discharge Cannot r/o TIA however, symptoms most c/w orthostasis Reduced home lisinopril to 5mg daily Recommended BP log for close monitoring as OP Reduced home doxazosin for to reduce orthostasis and perhaps allow for room increase BP meds as necessary Seems euvolemic, ensure home diuertic d/c per prior cardiology recommendations ECHO stable at 65-70% #Relative hypotension #Obstructive CAD c.b inferolateral STEMI 06/2024 #Hypertension s/p 3 ANJANA RCA, 1 ANJANA circumflex continue on aspirin, Brilinta Continue on statin, metoprolol. continue Imdur. #Abnormal CTA neck Cervical carotid atherosclerosis with up to 50% stenosis left proximal cervical ICA. 3. Prominent calcification proximal bilateral external carotid arteries without occlusion. 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 -Patient taking hydrocortisone 20 mg in the morning and 10 mg at night. I discussed with patient that hydrocortisone at night likely results in poor sleep which patient reports that he is suffering from. I discussed it to changing it in the afternoon; needs to be taken at least 4-hour before bedtime. Pa #multinodular goiter, hyperthyroidismpreviously on methimazole; currently not on it. T3, T4 wnl, history of methimazole intolerance #Generalized anxiety disordercontinue on home meds #CKD stage IIIacreatinine around baseline; BMP daily #BPHcontinue on dutasteride-tamsulosin, reduce doxazosin to 4mg qhs . #History of chronic back painon Tylenolcodeine as needed and Lyrica #Insomnia- on trazodone at night Notes For Next Care Provider [ ] given patient concerns for BPH and retention, follow up urology given decrease in doxazosin as to alpha antagonist on med list, high risk for further orthostasis with addition of other antihypertensives [ ] encouraged bp log while taking 5mg daily lisinopril to guide op adjustments [ ] Follow up cervical carotid atherosclerosis with up to 50% stenosis left proximal cervical ICA Medication Changes From Visit Reduced lisinopril to 5mg daily, plans to follow BP log and symptoms Increased statin to 80mg daily Reduced doxazosin to 4mg nightly Admission HPI Per Admitting Provider History obtained from interview with the patient and chart review Past medical history of pituitary tumor status postsurgery resulting in panhypopituitary, history of multi nodule goiter/hyperthyroidism-previously on methimazole, hypertension, coronary artery disease status post stent placement in June 2020 for, BPH, CKD stage III yea, restless leg syndrome, generalized anxiety disorder Last admission in September 2024 with headache and hypertensive urgency Patient presented to the hospital after he felt dizzy while he was in the orthodoxy early in the morning. The dizziness started when he stood up; he was initially found to be confused when he presented to the ED and was leaning to the right side with arm weakness. Symptoms resolved spontaneously. Patient reports having similar symptoms in the past while standing up as well. Denies any history of loss of consciousness or fall. Telestroke consultation was done. Patient denies any focal weakness/numbness at this time. He denies visual changes, fever, chills, chest pain or shortness of breath. Patient was recently seen by his primary care doctor on 01/08 stating that his blood pressure has been on the higher side; systolic of 170s. Patient was alyssa ing amlodipine 7.5 mg, Bumex 1 mg daily, Imdur and metoprolol 50 mg. Patient was started on lisinopril 20 mg once a day. On presentation to the ED, he was found to have blood pressure of 120/66; which is lower compared to his previous baseline, afebrile and was saturating well on room air. Creatinine around baseline of 1.5; potassium and sodium within normal limits. Patient underwent CT head, CTA head and neck which was within normal limits. Patient was then referred for admission. Admission Exam Per Admitting Provider Constitutional: WD/WN, vitals as above, NAD, sitting up in bed, pleasant, conversing easily Respiratory: normal respiratory effort, lungs clear to auscultation, no wheeze, rales, rhonchi. Normal insp/exp effort, no accessory muscle use Cardiovascular: RRR, no murmur, no edema Vessels: no JVD or carotid bruit Chest: normal inspection of chest Abdomen: normal bowel sounds, soft, nontender, no hepatosplenomegaly Musculoskeletal: no cyanosis or clubbing, extremities motor strength 5/5 Skin: no rashes, warm and dry normal turgor Neurologic: PERRL, EOMI, accommodation nl, no face palsy, no dysarthria CN's II- XI intact bilaterally and moves all extremities Psychiatric: A+Ox3, euthymic affect Discharge Exam Constitutional WD/WN, vitals as above Respiratory normal respiratory effort, lungs clear to auscultation Cardiovascular RRR, no murmur, no edema Gastrointestinal (Abdomen) normal bowel sounds, soft, nontender, no hepatosplenomegaly Musculoskeletal no cyanosis or clubbing, extremities motor strength 01/18 Updated Medication List Medication Instructions Recorded Confirmed Type aspirin 81 mg tablet,delayed 81 mg PO DAILY 08/07/24 01/10/25 History release dicyclomine 20 mg tablet 20 mg PO TID PRN Other 08/07/24 01/10/25 History dutasteride 0.5 mg-tamsulosin ER 1 cap PO HS 08/07/24 01/10/25 History 0.4 mg capsule ext.release 24hr mphas isosorbide mononitrate 30 mg 30 mg PO QAM 08/07/24 01/10/25 History tablet,extended release 24 hr magnesium 250 mg tablet 250 mg PO QAM 08/07/24 01/10/25 History multivitamin 1 tab PO DAILY 08/07/24 01/10/25 History nitroglycerin 0.4 mg sublingual 0.4 mg sublingual UD 08/07/24 01/10/25 History tablet omeprazole 20 mg capsule,delayed 20 mg PO UD 08/07/24 01/10/25 History release sertraline 100 mg tablet 200 mg PO UD 08/07/24 01/10/25 History Tums 1 tab PO DIRECTED PRN Other 08/22/24 01/10/25 History quetiapine 25 mg tablet (Seroquel) 25 mg PO HS 08/22/24 01/10/25 History calcium 600 mg-D3 800 unit-mag 40 1 tab PO BID 10/01/24 01/10/25 History ab-unrr-gnpp-max-boron chew tablet (Caltrate 600-D Plus Minerals) docusate sodium 100 mg capsule 200 mg PO QAM 10/01/24 01/10/25 History (Colace) duloxetine 30 mg capsule,delayed 30 mg PO QAM 10/01/24 01/10/25 History release (Cymbalta) ferrous sulfate 325 mg (65 mg 325 mg PO QAM 10/08/24 01/10/25 History iron) tablet (Feosol) Probiotic 1 cap PO QAM 10/15/24 01/10/25 History ascorbic acid (vitamin C) 500 mg 500 mg PO QAM 10/15/24 01/10/25 History tablet (Vitamin C) metoprolol succinate 50 mg 50 mg PO BID 10/15/24 01/10/25 History tablet,extended release 24 hr sucralfate 1 gram tablet 1 g PO UD PRN Other 10/15/24 01/10/25 History trazodone 150 mg tablet 150 mg PO UD 10/15/24 01/10/25 History testosterone 1 pump topical QAM #75 grams 10/29/24 01/10/25 Rx hydrocortisone 5 mg tablet 10 - 20 mg (2 - 4 x 5 mg) PO UD 10/30/24 01/10/25 Rx #540 tabs ticagrelor 90 mg tablet (Brilinta) 90 mg PO BID #180 tabs 11/02/24 01/10/25 Rx pregabalin 50 mg capsule 50 mg PO BID #60 caps 11/03/24 01/10/25 Rx acetaminophen 300 mg-codeine 30 mg 1 tab PO Q6H PRN Pain 01/10/25 01/10/25 History tablet amlodipine 5 mg tablet (Norvasc) 7.5 mg PO QAM 01/10/25 01/10/25 History triamcinolone acetonide 0.1 % 1 applic topical DIRECTED 01/10/25 01/10/25 History topical cream atorvastatin 40 mg tablet 80 mg (2 x 40 mg) PO DAILY 30 days 01/11/25 Rx #60 tabs doxazosin 4 mg tablet 4 mg PO HS #0 tabs 01/11/25 01/10/25 Rx lisinopril 5 mg tablet 5 mg PO DAILY #30 tabs 01/11/25 Rx Hospital Stay Data Consultations 01/10/25 11:08 ED Decision to Admit Stat Diagnostic Imagining Performed 01/10/25 10:14 CT angio head w con Stat CT angio neck with con Stat CT head/brain wo con Stat 01/10/25 11:54 MRI Brain [MR brain wo con] Routine Pending Results Patient Have Any Pending Studies at Discharge: No Discharge Instructions Given to Patient (Per Discharging Provider) You were admitted for an episode of dizziness and confusion after standing. You underwent a stroke rule out. MRI did not reveal an acute stroke. Your neck imaging of your vessels which revealed cervical carotid atherosclerosis with up to 50% stenosis left proximal cervical ICA. The chance of a Transient ischemic attack (TIA or "mini stroke") is not able to be ruled out; however, you are on maximum preventative therapy with aspirin and Brilinta. Your Lipitor will be increased to 80mg daily. Your ECHO of your heart showed normal function. Your blood pressures however were consistent with orthostatic hypotension, or low pressures with position changes. Its suspected that your recent addition of lisinopril may be contributing, as well as with some of your prostate medications. Please start lower dose lisinopril 5mg daily Please reduce your home doxazosin to 4mg daily Please increase your atorvastatin to 80mg daily Please discontinue Bumex ( your instrument designer discontinued this 09/2024, follow up with Cardiology for further questions) Please keep a blood pressure log to bring into your PCP office to discuss titration of medications Please monitor your urinary symptoms and discuss any needed changes with your urologist to ensure that your tamsulosin and Avodart are not contributing Total Time Total Time Spent Total Time Spent (In Minutes): 65
[2025-01-11 16:09] VITALS: BP 90/49; PULSE 57; RESP 16
--- NOTE | 2025-01-13 22:38 | Electrocardiogram Report ---
Test Reason : Blood Pressure : */* mmHG Vent. Rate : 56 BPM Atrial Rate : 56 BPM P-R Int : 166 ms QRS Dur : 86 ms QT Int : 416 ms P-R-T Axes : 32 -40 3 degrees QTcB Int : 401 ms Sinus bradycardia Left axis deviation Inferior infarct (cited on or before 20-Aug-2024) Abnormal ECG When compared with ECG of 15-Oct-2024 08:15, No significant change was found Confirmed by Bartolo Albright ([id number]) on 01/13/2025 10:38:44 PM Referred By: REFERRED SELF Confirmed By: Bartolo Albright
== END 2025-01-11 16:50 | disposition home or self-care (01) | DRG 312 ==
LOC: ED 10:02 → SUATTDRO 13:05 → 2N 13:05

== ENCOUNTER 2025-02-08 18:36 | Observation (INO) ==
[2025-02-08 19:04] LABS: Basophils # (auto) 0.05 K/uL (0.00-0.20); Basophils % (auto) 0.4 %; Eosinophils # (auto) 0.09 K/uL (0.00-0.50); Eosinophils % (auto) 0.8 %; Hemoglobin 13.4 g/dl (14.0-18.0); Immature Granulocytes # (auto) 0.04 K/uL (0.01-0.20); Immature Granulocytes % (auto) 0.4 %; Lymphocytes # (auto) 1.51 K/uL (1.20-3.40); Lymphocytes % (auto) 13.5 %; Mean Corpuscular Hgb Conc 34.4 g/dL (32.0-36.0); Mean Corpuscular Volume 93.1 fL (80.0-100.0); Mean Platelet Volume 11.1 fL (9.4-12.4); Monocytes # (auto) 0.61 K/uL (0.11-0.59); Monocytes % (auto) 5.5 %; Neutrophils # (auto) 8.88 K/uL (1.40-6.50); Neutrophils % (auto) 79.4 %; Platelet Count 131 K/uL (130-400); RDW Coefficient of Variation 14.4 % (11.5-14.5); RDW Standard Deviation 48.7 fL (36.4-46.3); Red Blood Count 4.19 M/uL (4.70-6.10); White Blood Count 11.18 K/ul (4.8-10.8)
[2025-02-08] MEDS: ONDANSETRON INJ 2 MG/ML 2 ML VIAL IV STA (19:10)
[2025-02-08] MEDS: ACETAMINOPHEN 1,000 MG/100 ML VIAL IV STA (19:11)
[2025-02-08] MEDS: ACETAMINOPHEN 500 MG TAB PO STA (19:12)
--- NOTE | 2025-02-08 19:32 | XRay Report ---
Chest radiograph, one view History: Chest pain Comparison: 02/06/2025 Findings: Single AP view of the chest performed. No focal consolidation or pleural effusion. No pneumothorax. The cardiomediastinal silhouette is within normal limits. Normal pulmonary vascularity. No evidence for lymphadenopathy. No visualized bony or soft tissue abnormality. Impression: Normal chest radiograph Electronically signed by Xander Montes 02-08-2025 7:31 PM
[2025-02-08 19:39] LABS: Albumin Globulin Ratio 1.2 (0.9-2); BUN Creatinine Ratio 20.4 (10-20); Bilirubin,Total 0.9 mg/dl (0.2-1.0); Calcium 9.6 mg/dl (8.6-10.3); Creatinine Clr Calc Pharmacy 50.1 ml/min; Globulin 2.9 gm/dl (2.5-4.0); Potassium 3.8 mmol/L (3.5-5.1); Total Protein 6.4 gm/dl (6.0-8.3)
--- NOTE | 2025-02-08 19:56 | Emergency Department Note ---
Impression & Plan Hypertension, Headache, Nausea ED Provider Note NAME: PUJA GROSSMAN AGE: 84 SEX: Male INFORMANT: Patient and ED PROVIDER(S): Bryant Peck MD CHIEF COMPLAINT: Hypertension PLAN: Disposition: Admitted Outpatient prescription management: none Referral: None MEDICAL DECISION MAKING: Patient present because of hypertension. He also noted a headache which but his account has been a recurrent problem for him. Headache was concerning as the patient is on Brilinta and did have recent fall. Patient had IV established and was treated symptomatically. He had some nausea develop and was given Zofran as well as a dose of Tylenol IV. He seemed to do a little bit better with this and did not have any additional nausea or vomiting. The patient's cardiac troponin was borderline but it was in the past visit as well. He did not have any acute ischemia on ECG. Cardiac monitoring revealed no evidence of dysrhythmia. Patient had a slight leukocytosis on CBC which was improved from prior. Patient was sent for CT imaging. Initially considered angiography however patient did note renal issues and a dry CT was done first. This did not reveal any evidence of acute process. No SAH or SDH. On reassessment the patient's blood pressure seemed to improve but then became elevated again. He was given a dose of IV hydralazine. In light of his symptoms and significant fluctuations of blood pressure with several measurements over 200 I discussed further management in the hospital. Patient and in agreement. Consultation was made with the [facility] hospitalist service, Dr. Sears. Patient was evaluated in the ER and admitted for further management. Care/management discussed with: manager costing Level of care consideration(s): After review of the information above and other included data, I feel the patient requires escalation of care to admission Triage Nursing notes: reviewed and agree them. Vital Signs: reviewed and remarkable for hypertension Additional History obtained from: Patient's . She confirms his daily medication dosing. Chronic Medical/Social Conditions affecting care: Hypertension Prior/ Outside/ External records reviewed: Prior ED records reviewed. Differential Diagnosis: Trauma, hypertensive emergency, migraine headache, meningitis, sinusitis, CO exposure, ICH, SAH, infection, tumor, headache, sinus thrombosis, arterial dissection, as well as other pathologies. Diagnostics, independently interpreted by me: ECG: Twelve-lead ECG reveals a normal sinus rhythm with left axis deviation at [address] elevation or depression. Cardiac Monitoring: Cardiac monitoring ordered by me: The patient was placed on continuous cardiac monitoring and observed. It revealed a normal sinus rhythm at 60 beats per minute without ectopy or evidence of dysrhythmia. Medical decision rules: none Imaging studies: Head CT: A noncontrast CT scan of the head was performed and was negative for tumor, fracture, intracranial hemorrhage, or other acute pathology. HPI: 84 year old Male arrives for evaluation of hypertension. Patient notes that he woke up with a recurrent headache today. He took his blood pressure and it was elevated. He was told in the past if his blood pressure exceeds 170 systolic that he should come to the emergency department. He did take his morning lisinopril and metoprolol. Patient did try to take Tylenol earlier today but noted continued symptoms. He rated the pain as a 5 out of 10. He does note a history of headaches. He did have a fall about 2 weeks ago and was seen in the ER. He was also seen in the ER 2 days ago. He was diagnosed with a sternal fracture. Patient denies any new falls since his last ER visit. does state that he was given his evening metoprolol dose as well. He was recently prescribed clonidine but did not take this. Patient does note history of monthly headaches that used to be more frequent. He notes the duration and severity of this is somewhat atypical but location is similar. On arrival the patient's blood pressure was 200/90. Pt denies LOC, flulike symptoms, fevers, chills, diaphoresis, visual changes, neck pain, new chest pain, breathing difficulties, nausea, vomiting, abdominal pain, back pain, melena, hematochezia, urinary symptoms, numbness, weakness, lymphadenopathy, rash, or other complaints. PAST MEDICAL HISTORY: See Below, hypertension, kidney disease, adrenal insufficiency, left eye blindness PAST SURGICAL HISTORY: See Below, SOCIAL HISTORY: See Below, HOME MEDICATIONS: See Below ALLERGIES: See Below VITALS: See Below PHYSICAL EXAMINATION: GENERAL: Awake, alert, nontoxic-appearing, in no distress HENT: Normocephalic, atraumatic. Oropharynx unremarkable. EYES: Normal conjunctiva. Sclera non-icteric. Right pupil is round and reactive. Patient states he is blind in the left eye. NECK: Inspection normal. Non-tender. Supple. No nuchal rigidity. FROM. No masses. RESPIRATORY: Clear to auscultation. No wheezes. No rales. Normal respiratory effort. CARDIAC: Normal rate. Normal rhythm. No murmurs. No rubs. Extremities warm and well perfused. Pulses equal. No JVD. GI: Soft, non-distended. No tenderness to palpation. No rebound or guarding. No masses. RECTAL: Deferred. MUSCULOSKELETAL: Atraumatic. Chest examination reveals Sternal tenderness. The back is symmetrical on inspection without obvious abnormality. There is no CVA tenderness to palpation. No joint edema. LOWER EXTREMITIES: Calves are equal size bilaterally and non-tender. No edema. No discoloration. NEURO: Normal sensorium. No sensory or motor deficits noted. SKIN: No rash or jaundice noted. PROCEDURES: none CRITICAL CARE: none OBSERVATION NOTE: none Past Med/Surg History Problem List (Updated 02/09/25 @ 00:04 by Background Daemon) Nausea (Acute) Hypertension (Acute) Ground-level fall (Acute) Sternal fracture (Acute) Headache (Acute) Hypertension (Acute) Confusion (Acute) TIA (transient ischemic attack) (Acute) Dizziness Balanitis Phimosis Spinal stenosis of lumbar region with radiculopathy Severe uncontrolled hypertension Headache (Acute) Anxiety (Acute) Spinal stenosis (Acute) Isolated TSH deficiency Hyperthyroidism Back pain of lumbar region with sciatica (Acute) Adrenal insufficiency (Acute) Prediabetes 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 Trochanteric bursitis of right hip Dyslipidemia Osteopenia Prostatic hypertrophy ACTH deficiency (Chronic) 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) Medical History HTN (hypertension) Anxiety Mild neurocognitive disorder Depression, unspecified CAD (coronary atherosclerotic disease) History of pituitary adenoma Chronic kidney disease, stage III (moderate) Panhypopituitarism Vitamin D deficiency History of DVT (deep vein thrombosis) Blind left eye Chronic cholecystitis Multiple renal cysts BPH (benign prostatic hyperplasia) IBS (irritable bowel syndrome) GERD (gastroesophageal reflux disease) History of melanoma Hearing deficit Lumbar herniated disc Surgical History Hx laparoscopic cholecystectomy (06/03/19) History of skin graft History of parotidectomy History of craniotomy Status post trigger finger release History of esophagogastroduodenoscopy (EGD) History of colonoscopy History of melanoma excision Family History Sister Family hx of colon cancer Father Tobacco use Coronary heart disease Mother Diverticulosis of intestine Sister Ovarian cancer Colon cancer Grandfather Cancer Aunt Cancer Uncle Cancer Grandmother (Maternal) Cancer Other No significant family history Social History Smoking Status: Former smoker Tobacco Type: Cigarettes Second Hand Exposure: No; Do You Dip or Chew Tobacco: No; Hx Alcohol Use: No Hx Substance Use: No Preferred Language: Danish Communication Ability: Effective Visual Impairment: No Limitations 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 Required: No Beliefs That Will Affect Care: None Current Living Situation: Spouse Current Living Situation Comment: lives with 2 cats as well current occupational status: retired Feels Safe at Home: Yes Diet: other and regular Diet Comment: limited red meat caffeine: Yes (1 cup daily) Dental Care, Regularly: Yes Physical Activity Frequency: Does not Exercise Seatbelt Use: always Do you think of yourself as: straight/heterosexual Gender Identity: Male Assistive Devices: Glasses and Hearing Aid - Bilateral Allergies Allergies Allergy/AdvReac Type Severity Reaction Status Date / Time lidocaine [From Lidoderm] AdvReac Intermediate Itching Verified 02/08/25 19:53 Home Meds Home Medications Medication Instructions Recorded Confirmed aspirin 81 mg tablet,delayed 81 mg PO DAILY 08/07/24 02/08/25 release dicyclomine 20 mg tablet 20 mg PO TID 08/07/24 02/08/25 dutasteride 0.5 mg-tamsulosin ER 1 cap PO HS 08/07/24 02/08/25 0.4 mg capsule ext.release 24hr mphas isosorbide mononitrate 30 mg 30 mg PO QAM 08/07/24 02/08/25 tablet,extended release 24 hr magnesium 250 mg tablet 250 mg PO QAM 08/07/24 02/08/25 nitroglycerin 0.4 mg sublingual 0.4 mg sublingual DIRECTED PRN 08/07/24 02/08/25 tablet Chest Pain calcium carbonate (Tums) 2,250 mg PO DAILY PRN Acid Reflux 08/22/24 02/08/25 ##0 quetiapine 25 mg tablet (Seroquel) 25 mg PO HS 08/22/24 02/08/25 calcium 600 mg-D3 800 unit-mag 40 1 tab PO BIDM 10/01/24 02/08/25 fl-ksue-nang-max-boron chew tablet (Caltrate 600-D Plus Minerals) docusate sodium 100 mg capsule 200 mg PO QAM 10/01/24 02/08/25 (Colace) duloxetine 30 mg capsule,delayed 30 mg PO QAM 10/01/24 02/08/25 release (Cymbalta) ferrous sulfate 325 mg (65 mg 325 mg PO QAM 10/08/24 02/08/25 iron) tablet (Feosol) ascorbic acid (vitamin C) 500 mg 500 mg PO QAM 10/15/24 02/08/25 tablet (Vitamin C) metoprolol succinate 50 mg 50 mg PO BIDM 10/15/24 02/08/25 tablet,extended release 24 hr acetaminophen 300 mg-codeine 30 mg 1 tab PO Q6H PRN Pain 01/10/25 02/08/25 tablet triamcinolone acetonide 0.1 % 1 applic topical DIRECTED PRN 01/10/25 02/08/25 topical cream Skin Irritation atorvastatin 40 mg tablet 40 mg PO DAILY 01/27/25 02/08/25 bumetanide 1 mg tablet 1 mg PO QAM 01/27/25 02/08/25 cyanocobalamin (vitamin B-12) 1,000 mcg PO DAILY 02/08/25 02/08/25 1,000 mcg tablet (Vitamin B-12) diclofenac sodium 1 % topical gel 2 g topical QID PRN Pain 02/08/25 02/08/25 doxazosin 4 mg tablet 8 mg PO HS 02/08/25 02/08/25 hydrocortisone 5 mg tablet 10 mg PO HS 02/08/25 02/08/25 hydrocortisone 5 mg tablet 20 mg PO QAM 02/08/25 02/08/25 [id number]-zwxiueud-mfizyz 1 tab PO DAILY 02/08/25 02/08/25 tablet (Multivitamin 50 Plus tablet) pregabalin 50 mg capsule 50 mg PO AMHS 02/08/25 02/08/25 sertraline 100 mg tablet 200 mg PO DAILY 02/08/25 02/08/25 ticagrelor 90 mg tablet (Brilinta) 90 mg PO BIDM 02/08/25 02/08/25 Previous Rx's Medication Instructions Recorded testosterone 1 pump topical QAM #75 grams 10/29/24 lisinopril 5 mg tablet 5 mg PO DAILY #30 tabs 01/11/25 clonidine HCl 0.1 mg tablet 0.1 mg PO DAILY PRN hypertensive 01/28/25 emergency #30 tabs oxycodone 5 mg tablet 5 mg PO Q6H PRN pain #20 tabs 02/06/25 Results & Data (ED) Vital Signs Vital Signs - 24 hr 02/08/25 18:39 02/08/25 18:50 02/08/25 18:50 Temperature 37 C Temperature Source Temporal Artery Scan Pulse Rate 75 61 63 Pulse Rate [Right Finger] Pulse Rhythm [Right Finger] Respiratory Rate 18 12 Respiratory Effort / Characteristics Non-Labored Respiratory Depth Normal Respiratory Pattern Blood Pressure 200/90 H 186/95 H Blood Pressure [Right Arm] Blood Pressure Mean 126 142 Blood Pressure Mean [Right Arm] Blood Pressure Position Sitting Pulse Oximetry 95 94 Oxygen Delivery Method Room Air Room Air Sepsis Recent Fever Within 48 Hours No Sepsis New/Unexplained Change in Mental Status No Sepsis Action Taken by Nursing No Action Required 02/08/25 18:52 02/08/25 19:43 02/08/25 20:30 Temperature Temperature Source Pulse Rate 58 L 55 L Pulse Rate [Right Finger] Pulse Rhythm [Right Finger] Respiratory Rate 14 18 Respiratory Effort / Characteristics Respiratory Depth Respiratory Pattern Blood Pressure 171/82 H 198/83 H Blood Pressure [Right Arm] Blood Pressure Mean 128 121 Blood Pressure Mean [Right Arm] Blood Pressure Position Pulse Oximetry 94 93 94 Oxygen Delivery Method Room Air Room Air Room Air Sepsis Recent Fever Within 48 Hours Sepsis New/Unexplained Change in Mental Status Sepsis Action Taken by Nursing 02/08/25 22:00 02/08/25 23:00 02/08/25 23:20 Temperature Temperature Source Pulse Rate Pulse Rate [Right Finger] 52 L 64 56 L Pulse Rhythm [Right Finger] Regular Respiratory Rate 18 18 19 Respiratory Effort / Characteristics Non-Labored Non-Labored Spontaneous Non-Labored Spontaneous Respiratory Depth Normal Normal Normal Respiratory Pattern Regular Regular Blood Pressure Blood Pressure [Right Arm] 201/103 H 197/99 H 220/105 H Blood Pressure Mean Blood Pressure Mean [Right Arm] 135 131 143 Blood Pressure Position Pulse Oximetry 97 96 98 Oxygen Delivery Method Room Air Room Air Room Air Sepsis Recent Fever Within 48 Hours Sepsis New/Unexplained Change in Mental Status Sepsis Action Taken by Nursing 02/08/25 23:23 02/08/25 23:30 Temperature Temperature Source Pulse Rate Pulse Rate [Right Finger] 52 L 51 L Pulse Rhythm [Right Finger] Regular Regular Respiratory Rate 16 16 Respiratory Effort / Characteristics Non-Labored Spontaneous Non-Labored Spontaneous Respiratory Depth Normal Normal Respiratory Pattern Regular Regular Blood Pressure Blood Pressure [Right Arm] 212/100 H 210/95 H Blood Pressure Mean Blood Pressure Mean [Right Arm] 137 133 Blood Pressure Position Pulse Oximetry 93 97 Oxygen Delivery Method Room Air Room Air Sepsis Recent Fever Within 48 Hours Sepsis New/Unexplained Change in Mental Status Sepsis Action Taken by Nursing Laboratory Data 02/08/25 18:51 02/08/25 18:51 Lab Results 02/08/25 02/08/25 02/08/25 Range/Units 18:51 20:29 21:05 WBC 11.18 H (4.8-10.8) K/ul RBC 4.19 L (4.70-6.10) M/uL Hgb 13.4 L (14.0-18.0) g/dl Hct 39.0 L (42.0-52.0) % MCV 93.1 (80.0-100.0) fL MCH 32.0 (25.0-34.0) pg MCHC 34.4 (32.0-36.0) g/dL RDW Std Deviation 48.7 H (36.4-46.3) fL RDW Coeff of Mehnaz 14.4 (11.5-14.5) % Plt Count 131 (130-400) K/uL MPV 11.1 (9.4-12.4) fL Immature Gran % (Auto) 0.4 % Neut % (Auto) 79.4 % Lymph % (Auto) 13.5 % Florence % (Auto) 5.5 % Eos % (Auto) 0.8 % Baso % (Auto) 0.4 % Neut # (Auto) 8.88 H (1.40-6.50) K/uL Lymph # (Auto) 1.51 (1.20-3.40) K/uL Florence # (Auto) 0.61 H (0.11-0.59) K/uL Eos # (Auto) 0.09 (0.00-0.50) K/uL Baso # (Auto) 0.05 (0.00-0.20) K/uL Immature Gran # (Auto) 0.04 (0.01-0.20) K/uL Sodium 142 (136-145) mmol/L Potassium 3.8 (3.5-5.1) mmol/L Chloride 107 (98-107) mmol/L Carbon Dioxide 29 (21-32) mmol/L Anion Gap 6 (3-11) BUN 22 (6-23) mg/dl Creatinine 1.08 (0.6-1.4) mg/dl Est Cr Clr Drug Dosing 50.1 ml/min eGFR 68.09 BUN/Creatinine Ratio 20.4 H (10-20) Glucose 120 H (70-99(Fasting)) mg/dl Calcium 9.6 (8.6-10.3) mg/dl Total Bilirubin 0.9 (0.2-1.0) mg/dl AST 25 (13-39) U/L ALT 19 (7-52) U/L Alkaline Phosphatase 91 (34-104) U/L Troponin I High Sens 21.0 H 17.5 (0-20) pg/ml Total Protein 6.4 (6.0-8.3) gm/dl Albumin 3.5 (3.4-5.0) gm/dl Globulin 2.9 (2.5-4.0) gm/dl Albumin/Globulin Ratio 1.2 (0.9-2) Urine Color Yellow Urine Appearance Clear (Clear) Urine pH 6.5 (4.5-7.5) Ur Specific Frazer 1.020 (1.000-1.030) Urine Protein 1+ H (Negative) Urine Glucose (UA) Negative (Negative) Urine Ketones Trace H (Negative) Urine Blood 1+ H (Negative) Urine Nitrite Negative (Negative) Urine Bilirubin Negative (Negative) Urine Urobilinogen Negative (Negative) Ur Leukocyte Esterase Negative (Negative) Urine WBC (Auto) 0-5 (0-5) /hpf Urine RBC (Auto) 11-20 H (0-2) /hpf U Hyaline Cast (Auto) 0-2 (0-2) /lpf U Epithel Cells (Auto) 0-2 (0-2) /hpf Urine Bacteria (Auto) None Seen (None Seen) Urine Comment Administered Medications Discontinued Medications Acetaminophen (Acetaminophen 500 Mg Tab) 1,000 mg PO NOW STA Stop: 02/08/25 19:05 Last Admin: 02/08/25 19:12 Dose: Not Given Documented By: DOROTHY Hydralazine HCl (Hydralazine Hcl 20 Mg/Ml Vial) 5 mg IV NOW ONE Stop: 02/08/25 22:07 Last Admin: 02/08/25 22:15 Dose: 5 mg Documented By: ARY Acetaminophen (Ofirmev) 1,000 mg in 100 mls @ 400 mls/hr IV NOW STA Stop: 02/08/25 19:20 Last Infusion: 02/08/25 19:42 Dose: Infused Documented By: Admin: 02/08/25 19:11 Dose: 400 mls/hr Documented By: DOROTHY Morphine Sulfate (Morphine Sulfate 2 Mg/Ml Carp) 1 mg IV NOW STA Stop: 02/08/25 22:58 Last Admin: 02/08/25 23:16 Dose: 1 mg Documented By: SERAFIN Ondansetron HCl (Ondansetron Inj 2 Mg/Ml 2 Ml Vial) 4 mg IV NOW STA Stop: 02/08/25 19:07 Last Admin: 02/08/25 19:10 Dose: 4 mg Documented By: DOROTHY Imaging Data Radiologist's Impression: Chest X-Ray 02/08/25 18:52 Chest radiograph, one view History: Chest pain Comparison: 02/06/2025 Findings: Single AP view of the chest performed. No focal consolidation or pleural effusion. No pneumothorax. The cardiomediastinal silhouette is within normal limits. Normal pulmonary vascularity. No evidence for lymphadenopathy. No visualized bony or soft tissue abnormality. Impression: Normal chest radiograph Electronically signed by Xander Montes 02-08-2025 7:[address] 02/08/25 19:06 EXAM: CT head/brain wo con CLINICAL HISTORY: headache TECHNIQUE: Axial non-contrast CT scan of the brain was performed from the skull base to the high parietal region. One of the following dose reduction techniques were utilized for this exam: Automated exposure control, adjustment of the mA and/or kV according to patient size, use of iterative reconstruction. CTDI: 38.62 mGy, DLP: 625.80 mGy-cm. COMPARISON: CT dated 02/06/2025 and 01/27/2025. Previous MRI dated 01/10/2025. FINDINGS: Brain Parenchyma: Age related involutional changes. Normal attenuation of the cerebral hemispheres, cerebellum, and brainstem. No evidence of acute infarct, hemorrhage, or mass effect. No abnormal areas of hypo- or hyperattenuation. Ventricular System: Ventricles are normal in size and configuration. No evidence of hydrocephalus or ventricular enlargement. Subarachnoid Spaces: Normal sulci and cisterns. No evidence of subarachnoid hemorrhage or extra-axial fluid collections. Cerebellum and Brainstem: No masses, lesions, or areas of abnormal density. Orbits: Normal appearance of the globes, optic nerves, and extraocular muscles. No evidence of orbital masses or abnormal density. Sinuses: Clear paranasal sinuses. No evidence of sinusitis or mucosal thickening. Mastoid Air Cells: Clear mastoid air cells. No evidence of mastoiditis. Skull: Post surgical changes of craniotomy in left frontal bone. Old. IMPRESSION: 1. No acute intracranial abnormality detected. 2. Age related involutional changes. 3. No significant interval change from priors. Electronically signed by Amaury Victor 02-08-2025 8:43 PM Discharge Plan Visit Data Chief Complaint: Hypertension Stated Complaint: HTN ED Provider: Bryant Peck Discharge Problem: Hypertension, Headache, Nausea Patient Disposition: Home - Self-Care Condition: Good Forms Stand Alone Forms: [facility], Important Visit Information Prescriptions Prescriptions: No Action Caltrate 600-D Plus Minerals 600 mg calcium- 800 unit-40 mg tablet,chewable 1 tab PO BIDM docusate sodium [Colace] 100 mg capsule 200 mg PO QAM duloxetine [Cymbalta] 30 mg capsule,delayed release(DR/EC) 30 mg PO QAM testosterone 20.25 mg/1.25 gram (1.62 %) gel in metered-dose pump 1 pump topical QAM Qty: 75 5RF clonidine HCl 0.1 mg tablet 0.1 mg PO DAILY PRN (Reason: hypertensive emergency) Qty: 30 3RF Rx Instructions: Take one tablet daily NEEDED for SBP > 160 mm Hg ferrous sulfate [Feosol] 325 mg (65 mg iron) tablet 325 mg PO QAM bumetanide 1 mg tablet 1 mg PO QAM atorvastatin 40 mg tablet 40 mg PO DAILY oxycodone 5 mg tablet 5 mg PO Q6H PRN (Reason: pain) Qty: 20 0RF hydrocortisone 5 mg Tablet 10 mg PO HS sertraline 100 mg Tablet 200 mg PO DAILY cyanocobalamin (vitamin B-12) [Vitamin B-12] 1,000 mcg Tablet 1,000 mcg PO DAILY Multivitamin 50 Plus Tablet 1 tab PO DAILY diclofenac sodium [Voltaren] 1 % Gel 2 g TOPICAL QID PRN (Reason: Pain) hydrocortisone 5 mg tablet 20 mg PO QAM doxazosin 4 mg tablet 8 mg PO HS pregabalin 50 mg capsule 50 mg PO AMHS ticagrelor [Brilinta] 90 mg tablet 90 mg PO BIDM isosorbide mononitrate 30 mg tablet extended release 24 hr 30 mg PO QAM aspirin 81 mg Tablet,Delayed Release (Dr/Ec) 81 mg PO DAILY dicyclomine 20 mg tablet 20 mg PO TID nitroglycerin 0.4 mg tablet, sublingual 0.4 mg sublingual DIRECTED PRN (Reason: Chest Pain) Rx Instructions: q5min prn chest pain x3. last filled 07/23/24 14 day supply magnesium 250 mg Tablet 250 mg PO QAM dutasteride-tamsulosin 0.5-0.4 mg Capsule, Er Multiphase 24 Hr 1 cap PO HS calcium carbonate [Tums] 320 mg calcium (750 mg) Tablet,Chewable 2,250 mg PO DAILY PRN (Reason: Acid Reflux) Qty: 0 Rx Instructions: 3 TABS quetiapine [Seroquel] 25 mg Tablet 25 mg PO HS ascorbic acid (vitamin C) [Vitamin C] 500 mg Tablet 500 mg PO QAM metoprolol succinate 50 mg tablet extended release 24 hr 50 mg PO BIDM triamcinolone acetonide 0.1 % cream 1 applic topical DIRECTED PRN (Reason: Skin Irritation) Rx Instructions: Apply to genital area once daily for 8 weeks for phimosis acetaminophen-codeine 300-30 mg tablet 1 tab PO Q6H PRN (Reason: Pain) lisinopril 5 mg tablet 5 mg PO DAILY Qty: 30 0RF Referrals Referrals: Shalom Lieberman MD [Primary Care Provider] -
--- NOTE | 2025-02-08 20:44 | CT Scan Report ---
EXAM: CT head/brain wo con CLINICAL HISTORY: headache TECHNIQUE: Axial non-contrast CT scan of the brain was performed from the skull base to the high parietal region. One of the following dose reduction techniques were utilized for this exam: Automated exposure control, adjustment of the mA and/or kV according to patient size, use of iterative reconstruction. CTDI: 38.62 mGy, DLP: 625.80 mGy-cm. COMPARISON: CT dated 02/06/2025 and 01/27/2025. Previous MRI dated 01/10/2025. FINDINGS: Brain Parenchyma: Age related involutional changes. Normal attenuation of the cerebral hemispheres, cerebellum, and brainstem. No evidence of acute infarct, hemorrhage, or mass effect. No abnormal areas of hypo- or hyperattenuation. Ventricular System: Ventricles are normal in size and configuration. No evidence of hydrocephalus or ventricular enlargement. Subarachnoid Spaces: Normal sulci and cisterns. No evidence of subarachnoid hemorrhage or extra-axial fluid collections. Cerebellum and Brainstem: No masses, lesions, or areas of abnormal density. Orbits: Normal appearance of the globes, optic nerves, and extraocular muscles. No evidence of orbital masses or abnormal density. Sinuses: Clear paranasal sinuses. No evidence of sinusitis or mucosal thickening. Mastoid Air Cells: Clear mastoid air cells. No evidence of mastoiditis. Skull: Post surgical changes of craniotomy in left frontal bone. Old. IMPRESSION: 1. No acute intracranial abnormality detected. 2. Age related involutional changes. 3. No significant interval change from priors. Electronically signed by Amaury Victor 02-08-2025 8:43 PM
[2025-02-08 21:21] LABS: Appearance Urine Clear (Clear); Bacteria Urine Automated None Seen (None Seen); Bilirubin Urine Negative (Negative); Blood Urine 1+ (Negative); Cast Urine Automated 0-2 /lpf (0-2); Color Urine Yellow; Epithelial Cell Urine Auto 0-2 /hpf (0-2); Glucose Urine UA Negative (Negative); Ketones Urine Trace (Negative); Leukocyte Esterase Urine Negative (Negative); Nitrite Urine Negative (Negative); Protein Urine 1+ (Negative); Urobilinogen Urine Negative (Negative); WBC Urine Automated 0-5 /hpf (0-5); pH Urine 6.5 (4.5-7.5)
[2025-02-08] MEDS: hydrALAZINE HCL 20 MG/ML VIAL IV ONE (22:15)
[2025-02-08] MEDS: MoRPHine SULFATE 2 MG/ML CARP IV STA (23:16)
--- NOTE | 2025-02-09 01:09 | History & Physical Report ---
Date of Service February 09, 2025 Assessment & Plan (1) Hypertensive urgency: Plan: 84-year-old male with past med history significant for CAD status post stenting 06/2024, hypertension, hyperlipidemia, history of pituitary adenoma s/p surgery, panhypopituitarism(growth hormone deficiency, ACTH deficiency, central hypogonadism, toxic multinodular goiter as per records), hyperprolactinemia per records, chronic steroid treatment, CKD stage III, chronic anemia baseline hemoglobin 12-13, melanoma per records, BPH, anxiety/mood disorder, history of DVT, chronic back pain, past tobacco use, recent fall and sternal fracture comes because of headache and hypertensive urgency. Patient states he was having severe headache today. When blood pressure checked was in 200s so he came to the ER. He had nausea but currently nausea is improved. Vision is okay. No runny nose or sore throat. No cough. Denies chest pain or shortness of breath. No abdominal pain. Constipated because of using narcotic pain medications for her sternal fracture. Not micturate much says having some difficulty micturating. Hypertensive urgency Continue home medications of Imdur, lisinopril, metoprolol succinate and Bumex At home on clonidine as needed but patient having bradycardia Will place on IV hydralazine as needed Consult nephrology in a.m. for further recommendations Headache Most from above CT head is okay Pain control Patient is status post fall and sternal fracture Pain control History of CAD s/p stent On aspirin, Brilinta and statin metoprolol and Imdur Carotid artery stenosis On aspirin Brilinta and statin History of pituitary adenoma post surgery Panhypopituitarism Follows with nephrology On hydrocortisone and testosterone supplement History of multinodular goiter-thyroidism Previously on methimazole and history of methimazole intolerance and currently not on it. Will follow thyroid profile BPH On dutasteride tamsulosin and doxazosin Monitor for retention bladder scan tid Chronic back pain At home on Tylenol codeine as needed and Lyrica Insomnia On trazodone nightly Generalized anxiety disorder On Zoloft and Seroquel CKD stage III Baseline creatinine 1.8-2 Creatinine is 1.08 today Follows with nephrology DVT prophylaxis SCDs and heparin subcu Disposition Telemetry Full code. History of Present Illness Chief Complaint: Hypertensive urgency Primary Care Provider: Shalom Lieberman MD 84-year-old male with past med history significant for CAD status post stenting 06/2024, hypertension, hyperlipidemia, history of pituitary adenoma s/p surgery, panhypopituitarism(growth hormone deficiency, ACTH deficiency, central hypogonadism, toxic multinodular goiter as per records), hyperprolactinemia per records, chronic steroid treatment, CKD stage III, chronic anemia baseline hemoglobin 12-13, melanoma per records, BPH, anxiety/mood disorder, history of DVT, chronic back pain, past tobacco use, recent fall and sternal fracture comes because of headache and hypertensive urgency. Patient states he was having severe headache today. When blood pressure checked was in 200s so he came to the ER. He had nausea but currently nausea is improved. Vision is okay. No runny nose or sore throat. No cough. Denies chest pain or shortness of breath. No abdominal pain. Constipated because of using narcotic pain medications for her sternal fracture. Not micturate much says having some difficulty micturating. Past medical history. As mentioned above Past surgical history. Colonoscopy or EGD. Injection of lumbosacral spine. Removal of pituitary gland in 2019. Social history. . Quit smoking 1968. No alcohol use. No drug use. Family history. Daughter had breast cancer. Father had CHF. Mother had [place].. Allergies Allergy/AdvReac Type Severity Reaction Status Date / Time lidocaine [From Lidoderm] AdvReac Intermediate Itching Verified 02/08/25 19:53 Home Medications Medication Instructions Recorded Confirmed Type aspirin 81 mg tablet,delayed 81 mg PO DAILY 08/07/24 02/08/25 History release dicyclomine 20 mg tablet 20 mg PO TID 08/07/24 02/08/25 History dutasteride 0.5 mg-tamsulosin ER 1 cap PO HS 08/07/24 02/08/25 History 0.4 mg capsule ext.release 24hr mphas isosorbide mononitrate 30 mg 30 mg PO QAM 08/07/24 02/08/25 History tablet,extended release 24 hr magnesium 250 mg tablet 250 mg PO QAM 08/07/24 02/08/25 History nitroglycerin 0.4 mg sublingual 0.4 mg sublingual DIRECTED PRN 08/07/24 02/08/25 History tablet Chest Pain calcium carbonate (Tums) 2,250 mg PO DAILY PRN Acid Reflux 08/22/24 02/08/25 History ##0 quetiapine 25 mg tablet (Seroquel) 25 mg PO HS 08/22/24 02/08/25 History calcium 600 mg-D3 800 unit-mag 40 1 tab PO BIDM 10/01/24 02/08/25 History oj-ojtx-dkqs-max-boron chew tablet (Caltrate 600-D Plus Minerals) docusate sodium 100 mg capsule 200 mg PO QAM 10/01/24 02/08/25 History (Colace) duloxetine 30 mg capsule,delayed 30 mg PO QAM 10/01/24 02/08/25 History release (Cymbalta) ferrous sulfate 325 mg (65 mg 325 mg PO QAM 10/08/24 02/08/25 History iron) tablet (Feosol) ascorbic acid (vitamin C) 500 mg 500 mg PO QAM 10/15/24 02/08/25 History tablet (Vitamin C) metoprolol succinate 50 mg 50 mg PO BIDM 10/15/24 02/08/25 History tablet,extended release 24 hr testosterone 1 pump topical QAM #75 grams 10/29/24 02/08/25 Rx acetaminophen 300 mg-codeine 30 mg 1 tab PO Q6H PRN Pain 01/10/25 02/08/25 History tablet triamcinolone acetonide 0.1 % 1 applic topical DIRECTED PRN 01/10/25 02/08/25 History topical cream Skin Irritation lisinopril 5 mg tablet 5 mg PO DAILY #30 tabs 01/11/25 02/08/25 Rx atorvastatin 40 mg tablet 40 mg PO DAILY 01/27/25 02/08/25 History bumetanide 1 mg tablet 1 mg PO QAM 01/27/25 02/08/25 History clonidine HCl 0.1 mg tablet 0.1 mg PO DAILY PRN hypertensive 01/28/25 02/08/25 Rx emergency #30 tabs oxycodone 5 mg tablet 5 mg PO Q6H PRN pain #20 tabs 02/06/25 02/08/25 Rx cyanocobalamin (vitamin B-12) 1,000 mcg PO DAILY 02/08/25 02/08/25 History 1,000 mcg tablet (Vitamin B-12) diclofenac sodium 1 % topical gel 2 g topical QID PRN Pain 02/08/25 02/08/25 History doxazosin 4 mg tablet 8 mg PO HS 02/08/25 02/08/25 History hydrocortisone 5 mg tablet 10 mg PO HS 02/08/25 02/08/25 History hydrocortisone 5 mg tablet 20 mg PO QAM 02/08/25 02/08/25 History sktwsosgjcip-vsrggggh-lgoaxk 1 tab PO DAILY 02/08/25 02/08/25 History tablet (Multivitamin 50 Plus tablet) pregabalin 50 mg capsule 50 mg PO AMHS 02/08/25 02/08/25 History sertraline 100 mg tablet 200 mg PO DAILY 02/08/25 02/08/25 History ticagrelor 90 mg tablet (Brilinta) 90 mg PO BIDM 02/08/25 02/08/25 History Past Med/Surg History Problem List (Updated 02/09/25 @ 01:13 by Zach Sears MD) Hypertensive urgency Nausea (Acute) Hypertension (Acute) Ground-level fall (Acute) Sternal fracture (Acute) Headache (Acute) Hypertension (Acute) Confusion (Acute) TIA (transient ischemic attack) (Acute) Dizziness Balanitis Phimosis Spinal stenosis of lumbar region with radiculopathy Severe uncontrolled hypertension Headache (Acute) Anxiety (Acute) Spinal stenosis (Acute) Isolated TSH deficiency Hyperthyroidism Back pain of lumbar region with sciatica (Acute) Adrenal insufficiency (Acute) Prediabetes 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 Trochanteric bursitis of right hip Dyslipidemia Osteopenia Prostatic hypertrophy ACTH deficiency (Chronic) 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) Medical History HTN (hypertension) Anxiety Mild neurocognitive disorder Depression, unspecified CAD (coronary atherosclerotic disease) History of pituitary adenoma Chronic kidney disease, stage III (moderate) Panhypopituitarism Vitamin D deficiency History of DVT (deep vein thrombosis) Blind left eye Chronic cholecystitis Multiple renal cysts BPH (benign prostatic hyperplasia) IBS (irritable bowel syndrome) GERD (gastroesophageal reflux disease) History of melanoma Hearing deficit Lumbar herniated disc Surgical History Hx laparoscopic cholecystectomy (06/03/19) History of skin graft History of parotidectomy History of craniotomy Status post trigger finger release History of esophagogastroduodenoscopy (EGD) History of colonoscopy History of melanoma excision Family History Sister Family hx of colon cancer Father Tobacco use Coronary heart disease Mother Diverticulosis of intestine Sister Ovarian cancer Colon cancer Grandfather Cancer Aunt Cancer Uncle Cancer Grandmother (Maternal) Cancer Other No significant family history Social History Smoking Status: Former smoker Tobacco Type: Cigarettes Second Hand Exposure: No; Do You Dip or Chew Tobacco: No; Hx Alcohol Use: No Hx Substance Use: No Preferred Language: Kosovan Communication Ability: Effective Visual Impairment: No Limitations 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: No Beliefs That Will Affect Care: None Current Living Situation: Spouse Current Living Situation Comment: lives with 2 cats as well current occupational status: retired Other Information That Helps Us Care for You: No Feels Safe at Home: Yes Safety Concerns: Feels Safe At This Time Diet: other and regular Diet Comment: limited red meat caffeine: Yes (1 cup daily) Dental Care, Regularly: Yes Physical Activity Frequency: Does not Exercise Seatbelt Use: always Do you think of yourself as: straight/heterosexual Gender Identity: Male Assistive Devices: Walker Review of Systems Review of Systems: All systems reviewed & are unremarkable except as noted in HPI & below Physical Exam Physical Exam: General- Not in distress Head- atraumatic Eyes- PERRL. ENT- oropharynx clear Neck- supple, no JVD. Lungs- clear to auscultation no wheezing or crackles Heart- regular rhythm; no murmur, no gallop. Abdomen- normal bowel sounds, soft, nontender, no distension Extremities- no pretibial edema, no erythema seen Neuro- alert, oriented PERRL, no facial palsy; no dysarthria; moves extremities Results & Data Results & Data Vital Signs (Past 12 Hours) Vital Signs Temp Pulse Pulse Resp BP BP Pulse Ox 02/09/25 00:30 53 L 17 195/83 H 96 02/09/25 00:00 54 L 16 193/93 H 97 02/08/25 23:30 51 L 16 210/95 H 97 02/08/25 23:23 52 L 16 212/100 H 93 02/08/25 23:20 56 L 19 220/105 H 98 02/08/25 23:00 64 18 197/99 H 96 02/08/25 22:00 52 L 18 201/103 H 97 02/08/25 20:30 55 L 18 198/83 H 94 02/08/25 19:43 58 L 14 171/82 H 93 02/08/25 18:52 94 02/08/25 18:50 63 12 186/95 H 94 02/08/25 18:50 61 02/08/25 18:39 37 C 75 18 200/90 H 95 O2 Del Method 02/09/25 00:30 Room Air 02/09/25 00:00 Room Air 02/08/25 23:30 Room Air 02/08/25 23:23 Room Air 02/08/25 23:20 Room Air 02/08/25 23:00 Room Air 02/08/25 22:00 Room Air 02/08/25 20:30 Room Air 02/08/25 19:43 Room Air 02/08/25 18:52 Room Air 02/08/25 18:50 Room Air 02/08/25 18:50 02/08/25 18:39 Room Air Diagnostic Findings Laboratory Results WBC 11.18 K/ul (4.8-10.8) H 02/08/25 18:51 RBC 4.19 M/uL (4.70-6.10) L 02/08/25 18:51 Hgb 13.4 g/dl (14.0-18.0) L 02/08/25 18:51 Hct 39.0 % (42.0-52.0) L 02/08/25 18:51 MCV 93.1 fL (80.0-100.0) 02/08/25 18:51 MCH 32.0 pg (25.0-34.0) 02/08/25 18:51 MCHC 34.4 g/dL (32.0-36.0) 02/08/25 18:51 RDW Std Deviation 48.7 fL (36.4-46.3) H 02/08/25 18:51 RDW Coeff of Mehnaz 14.4 % (11.5-14.5) 02/08/25 18:51 Plt Count 131 K/uL (130-400) 02/08/25 18:51 MPV 11.1 fL (9.4-12.4) 02/08/25 18:51 Immature Gran % (Auto) 0.4 % 02/08/25 18:51 Neut % (Auto) 79.4 % 02/08/25 18:51 Lymph % (Auto) 13.5 % 02/08/25 18:51 [place] % (Auto) 5.5 % 02/08/25 18:51 Eos % (Auto) 0.8 % 02/08/25 18:51 Baso % (Auto) 0.4 % 02/08/25 18:51 Neut # (Auto) 8.88 K/uL (1.40-6.50) H 02/08/25 18:51 Lymph # (Auto) 1.51 K/uL (1.20-3.40) 02/08/25 18:51 [place] # (Auto) 0.61 K/uL (0.11-0.59) H 02/08/25 18:51 Eos # (Auto) 0.09 K/uL (0.00-0.50) 02/08/25 18:51 Baso # (Auto) 0.05 K/uL (0.00-0.20) 02/08/25 18:51 Immature Gran # (Auto) 0.04 K/uL (0.01-0.20) 02/08/25 18:51 Sodium 142 mmol/L (136-145) 02/08/25 18:51 Potassium 3.8 mmol/L (3.5-5.1) 02/08/25 18:51 Chloride 107 mmol/L (98-107) 02/08/25 18:51 Carbon Dioxide 29 mmol/L (21-32) 02/08/25 18:51 Anion Gap 6 (3-11) 02/08/25 18:51 BUN 22 mg/dl (6-23) 02/08/25 18:51 Creatinine 1.08 mg/dl (0.6-1.4) 02/08/25 18:51 Est Cr Clr Drug Dosing 50.1 ml/min 02/08/25 18:51 eGFR 68.09 02/08/25 18:51 BUN/Creatinine Ratio 20.4 (10-20) H 02/08/25 18:51 Glucose 120 mg/dl (70-99(Fasting)) H 02/08/25 18:51 Calcium 9.6 mg/dl (8.6-10.3) 02/08/25 18:51 Total Bilirubin 0.9 mg/dl (0.2-1.0) 02/08/25 18:51 AST 25 U/L (13-39) 02/08/25 18:51 ALT 19 U/L (7-52) 02/08/25 18:51 Alkaline Phosphatase 91 U/L (34-104) 02/08/25 18:51 Troponin I High Sens 17.5 pg/ml (0-20) 02/08/25 20:29 Total Protein 6.4 gm/dl (6.0-8.3) 02/08/25 18:51 Albumin 3.5 gm/dl (3.4-5.0) 02/08/25 18:51 Globulin 2.9 gm/dl (2.5-4.0) 02/08/25 18:51 Albumin/Globulin Ratio 1.2 (0.9-2) 02/08/25 18:51 Urine Color Yellow 02/08/25 21:05 Urine Appearance Clear (Clear) 02/08/25 21:05 Urine pH 6.5 (4.5-7.5) 02/08/25 21:05 Ur Specific [place] 1.020 (1.000-1.030) 02/08/25 21:05 Urine Protein 1+ (Negative) H 02/08/25 21:05 Urine Glucose (UA) Negative (Negative) 02/08/25 21:05 Urine Ketones Trace (Negative) H 02/08/25 21:05 Urine Blood 1+ (Negative) H 02/08/25 21:05 Urine Nitrite Negative (Negative) 02/08/25 21:05 Urine Bilirubin Negative (Negative) 02/08/25 21:05 Urine Urobilinogen Negative (Negative) 02/08/25 21:05 Ur Leukocyte Esterase Negative (Negative) 02/08/25 21:05 Urine WBC (Auto) 0-5 /hpf (0-5) 02/08/25 21:05 Urine RBC (Auto) 11-20 /hpf (0-2) H 02/08/25 21:05 U Hyaline Cast (Auto) 0-2 /lpf (0-2) 02/08/25 21:05 U Epithel Cells (Auto) 0-2 /hpf (0-2) 02/08/25 21:05 Urine Bacteria (Auto) None Seen (None Seen) 02/08/25 21:05 Urine Comment 02/08/25 21:05 Impressions Chest X-Ray 02/08/25 18:52 Chest radiograph, one view History: Chest pain Comparison: 02/06/2025 Findings: Single AP view of the chest performed. No focal consolidation or pleural effusion. No pneumothorax. The cardiomediastinal silhouette is within normal limits. Normal pulmonary vascularity. No evidence for lymphadenopathy. No visualized bony or soft tissue abnormality. Impression: Normal chest radiograph Electronically signed by Xander Montes 02-08-2025 7:[address] 02/08/25 19:06 EXAM: CT head/brain wo con CLINICAL HISTORY: headache TECHNIQUE: Axial non-contrast CT scan of the brain was performed from the skull base to the high parietal region. One of the following dose reduction techniques were utilized for this exam: Automated exposure control, adjustment of the mA and/or kV according to patient size, use of iterative reconstruction. CTDI: 38.62 mGy, DLP: 625.80 mGy-cm. COMPARISON: CT dated 02/06/2025 and 01/27/2025. Previous MRI dated 01/10/2025. FINDINGS: Brain Parenchyma: Age related involutional changes. Normal attenuation of the cerebral hemispheres, cerebellum, and brainstem. No evidence of acute infarct, hemorrhage, or mass effect. No abnormal areas of hypo- or hyperattenuation. Ventricular System: Ventricles are normal in size and configuration. No evidence of hydrocephalus or ventricular enlargement. Subarachnoid Spaces: Normal sulci and cisterns. No evidence of subarachnoid hemorrhage or extra-axial fluid collections. Cerebellum and Brainstem: No masses, lesions, or areas of abnormal density. Orbits: Normal appearance of the globes, optic nerves, and extraocular muscles. No evidence of orbital masses or abnormal density. Sinuses: Clear paranasal sinuses. No evidence of sinusitis or mucosal thickening. Mastoid Air Cells: Clear mastoid air cells. No evidence of mastoiditis. Skull: Post surgical changes of craniotomy in left frontal bone. Old. IMPRESSION: 1. No acute intracranial abnormality detected. 2. Age related involutional changes. 3. No significant interval change from priors. Electronically signed by Amaury Victor 02-08-2025 8:43 PM ECG Additional Comments: ECG.. Normal sinus rhythm rate of 62. Left axis deviation. No significant change was found. Code Status & VTE Plan VTE Prophylaxis Plan VTE Prophylaxis will be ordered: Yes
[2025-02-09] MEDS: hydrALAZINE HCL 20 MG/ML VIAL IV STA (01:40)
[2025-02-09] MEDS: HYDROmorphone INJ 0.5 MG/0.5 ML SYR IV STA (01:46)
[2025-02-09] MEDS ORDERED: NITROGLYCERIN SL 0.4 MG/TAB TAB SL PRN (02:55)
[2025-02-09] MEDS ORDERED: hydrALAZINE HCL 20 MG/ML VIAL IV PRN (02:55)
[2025-02-09] MEDS ORDERED: DICLOFENAC SOD 1% GEL 100 GM TUBE EXT PRN (02:55)
[2025-02-09] MEDS ORDERED: POLYETHYLENE (MIRALAX) 17 GM PACK PO PRN (02:55)
[2025-02-09] MEDS ORDERED: CALCIUM CARBONATE 500 MG CHEWABLE TAB PO PRN (03:15)
[2025-02-09] MEDS: oxyCODONE HCL IR 5 MG TAB (IMMEDIATE RELEASE) PO PRN (04:20)
[2025-02-09 05:46] LABS: Basophils # (auto) 0.06 K/uL (0.00-0.20); Basophils % (auto) 0.5 %; Eosinophils # (auto) 0.62 K/uL (0.00-0.50); Hematocrit (blood only) 40.4 % (42.0-52.0); Hemoglobin 13.8 g/dl (14.0-18.0); Immature Granulocytes # (auto) 0.05 K/uL (0.01-0.20); Immature Granulocytes % (auto) 0.4 %; Lymphocytes # (auto) 2.75 K/uL (1.20-3.40); Lymphocytes % (auto) 22.4 %; Mean Corpuscular Hemoglobin 32.1 pg (25.0-34.0); Mean Corpuscular Hgb Conc 34.2 g/dL (32.0-36.0); Mean Platelet Volume 11.1 fL (9.4-12.4); Monocytes # (auto) 0.91 K/uL (0.11-0.59); Monocytes % (auto) 7.4 %; Neutrophils # (auto) 7.89 K/uL (1.40-6.50); Neutrophils % (auto) 64.3 %; Platelet Count 122 K/uL (130-400); RDW Coefficient of Variation 14.5 % (11.5-14.5); RDW Standard Deviation 49.1 fL (36.4-46.3); White Blood Count 12.28 K/ul (4.8-10.8)
[2025-02-09 06:00] LABS: Anion Gap 6 (3-11); BUN Creatinine Ratio 19.8 (10-20); Blood Urea Nitrogen 20 mg/dl (6-23); Calcium 9.4 mg/dl (8.6-10.3); Carbon Dioxide 29 mmol/L (21-32); Chloride 107 mmol/L (98-107); Creatinine Clr Calc Pharmacy 53.6 ml/min; Glucose 88 mg/dl (70-99(Fasting)); Magnesium 1.8 mg/dl (1.7-2.4); Potassium 3.7 mmol/L (3.5-5.1); Sodium 142 mmol/L (136-145)
[2025-02-09] MEDS: OLANZapine 10 MG/2.1 ML SDV IM STA (07:52)
[2025-02-09] MEDS ORDERED: [UNRECOGNIZED DRUG - OTHER] PO SCH (08:00)
--- NOTE | 2025-02-09 09:07 | Nephrology Consultation ---
Date of Consultation February 09, 2025 Assessment & Plan (1) Hypertension: * Admitted due to hypertensive urgency. Patient reports adherence with prescribed medications but home medication list does not include amlodipine, lisinopril or PRN clonidine that have been prescribed as outpatient * Clinically suspect medication nonadherence. Patient likely requires assistance at home to administer medications properly. May need to consider home health nursing to fill medication pill box weekly or pharmacy "pill packs" * Renal artery Doppler 12/30 was negative for MARQUITA * Will not initiate further evaluation for secondary causes as patient is on relatively low doses of BP medications and adherence is questionable * 1500 mg/day NaCl restricted diet * Continue metoprolol succinate 50 mg qAM, isosorbide 30 mg qAM, lisinopril 5 mg qAM, bumetanide 1 mg qAM * Will start amlodipine 5 mg qAM * Monitor BP (2) Chronic kidney disease, stage III (moderate): * CKD stage G3a/A2 (moderate impairment). Baseline Cr 1.5-1.8 w/ EGFR 45 cc/min. Hematuria due to renal cysts. Urine sediment is negative for cellular casts. 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 Stable on imaging studies * 06/02 Urology evaluation: large R multicystic kidney. Urology indicated that these are simple cysts and did not recommend nephrectomy. Urology advised reevaluation in 1 year, patient declined * 06/[address]: multicystic dysplastic R kidney. L kidney without hydronephrosis * 05/06 Renal US revealed a 19 cm multicystic R kidney. L kidney was 10 cm with two small simple cysts. There was no solid renal mass reported. * Kidney function is stable at this time. Volume status and electrolyte balance are acceptable (3) Anxiety: * Severe anxiety despite duloxetine and seroquel. This may be impacting ADL's and ability to administer medications properly. Consider consultation w/ psychiatry History of Present Illness Reason for Consultation: HTN Attending Physician: Parish Cox MD History of Present Illness Mr. Wilkerson is an 84 year old white male who is seen at the request of the [facility] for evaluation of HTN. Information for the HPI is obtained from direct patient interview and review of the EMR. HPI is summarized as follows: Mr. Wilkerson has CKD stage G3a/A2 (moderate impairment). Baseline Cr has been 1.5-1.8 w/ EGFR 45 cc/min. Outpatient evaluation has revealed a benign urine sediment. 05/06 Renal US revealed a 19 cm multicystic R kidney. L kidney was 10 cm with two small simple cysts. There was no solid renal mass reported. Kidney function has fluctuated depending upon volume status. 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 Mr. Wilkerson recently had several EMD evaluations due to hypertensive urgency. BP was controlled each visit in the EMD and he was discharged to home. Mr. Wilkerson reports that he is adherent to his prescribed medical regimen. He presented to [facility] last evening w/ agitation and hypertensive urgency. Admission was advised for BP management. IV hydralazine was prescribed. This morning patient provides me with a list of home medications. Amlodipine, lisinopril and PRN clonidine were not on the list. He does not recall having these medications. He had only been taking metoprolol, isosorbide mononitrate and low dose bumex prior to his admission. staffing coordinator reports that Mr. Wilkerosn was very agitated this morning and required olanzapine IM x1. He is repeatedly asking when he will return home. Allergies Allergy/AdvReac Type Severity Reaction Status Date / Time lidocaine [From Lidoderm] AdvReac Intermediate Itching Verified 02/08/25 19:53 Home Medications Medication Instructions Recorded Confirmed Type aspirin 81 mg tablet,delayed 81 mg PO DAILY 08/07/24 02/08/25 History release dicyclomine 20 mg tablet 20 mg PO TID 08/07/24 02/08/25 History dutasteride 0.5 mg-tamsulosin ER 1 cap PO HS 08/07/24 02/08/25 History 0.4 mg capsule ext.release 24hr mphas isosorbide mononitrate 30 mg 30 mg PO QAM 08/07/24 02/08/25 History tablet,extended release 24 hr magnesium 250 mg tablet 250 mg PO QAM 08/07/24 02/08/25 History nitroglycerin 0.4 mg sublingual 0.4 mg sublingual DIRECTED PRN 08/07/24 02/08/25 History tablet Chest Pain calcium carbonate (Tums) 2,250 mg PO DAILY PRN Acid Reflux 08/22/24 02/08/25 History ##0 quetiapine 25 mg tablet (Seroquel) 25 mg PO HS 08/22/24 02/08/25 History calcium 600 mg-D3 800 unit-mag 40 1 tab PO BIDM 10/01/24 02/08/25 History vx-hmva-ofwo-max-boron chew tablet (Caltrate 600-D Plus Minerals) docusate sodium 100 mg capsule 200 mg PO QAM 10/01/24 02/08/25 History (Colace) duloxetine 30 mg capsule,delayed 30 mg PO QAM 10/01/24 02/08/25 History release (Cymbalta) ferrous sulfate 325 mg (65 mg 325 mg PO QAM 10/08/24 02/08/25 History iron) tablet (Feosol) ascorbic acid (vitamin C) 500 mg 500 mg PO QAM 10/15/24 02/08/25 History tablet (Vitamin C) metoprolol succinate 50 mg 50 mg PO BIDM 10/15/24 02/08/25 History tablet,extended release 24 hr testosterone 1 pump topical QAM #75 grams 10/29/24 02/08/25 Rx acetaminophen 300 mg-codeine 30 mg 1 tab PO Q6H PRN Pain 01/10/25 02/08/25 History tablet triamcinolone acetonide 0.1 % 1 applic topical DIRECTED PRN 01/10/25 02/08/25 History topical cream Skin Irritation lisinopril 5 mg tablet 5 mg PO DAILY #30 tabs 01/11/25 02/08/25 Rx atorvastatin 40 mg tablet 40 mg PO DAILY 01/27/25 02/08/25 History bumetanide 1 mg tablet 1 mg PO QAM 01/27/25 02/08/25 History clonidine HCl 0.1 mg tablet 0.1 mg PO DAILY PRN hypertensive 01/28/25 02/08/25 Rx emergency #30 tabs oxycodone 5 mg tablet 5 mg PO Q6H PRN pain #20 tabs 02/06/25 02/08/25 Rx cyanocobalamin (vitamin B-12) 1,000 mcg PO DAILY 02/08/25 02/08/25 History 1,000 mcg tablet (Vitamin B-12) diclofenac sodium 1 % topical gel 2 g topical QID PRN Pain 02/08/25 02/08/25 History doxazosin 4 mg tablet 8 mg PO HS 02/08/25 02/08/25 History hydrocortisone 5 mg tablet 10 mg PO HS 02/08/25 02/08/25 History hydrocortisone 5 mg tablet 20 mg PO QAM 02/08/25 02/08/25 History wkqusxkkylpn-uutsecss-kearpu 1 tab PO DAILY 02/08/25 02/08/25 History tablet (Multivitamin 50 Plus tablet) pregabalin 50 mg capsule 50 mg PO AMHS 02/08/25 02/08/25 History sertraline 100 mg tablet 200 mg PO DAILY 02/08/25 02/08/25 History ticagrelor 90 mg tablet (Brilinta) 90 mg PO BIDM 02/08/25 02/08/25 History Patient History Medical History HTN (hypertension) Anxiety Mild neurocognitive disorder Depression, unspecified CAD (coronary atherosclerotic disease) History of pituitary adenoma Chronic kidney disease, stage III (moderate) Panhypopituitarism Vitamin D deficiency History of DVT (deep vein thrombosis) Blind left eye Chronic cholecystitis Multiple renal cysts REPORTS ONLY HAS 1 FUNCTIONING KIDNEY - FOLLOWS W/ DR. TORRES BPH (benign prostatic hyperplasia) IBS (irritable bowel syndrome) GERD (gastroesophageal reflux disease) History of melanoma Hearing deficit BL MCRAE Lumbar herniated disc MULTIPLE Surgical History Hx laparoscopic cholecystectomy (06/03/19) Laparoscopic Cholecystectomy Dr. 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 Status post trigger finger release History of esophagogastroduodenoscopy (EGD) 04/20/2019. MAC no issues. History of colonoscopy History of melanoma excision CHEST - W/ SKIN GRAFTING. (LEFT GROIN DONOR SITE) Family History Sister Family hx of colon cancer Father Tobacco use Coronary heart disease Mother Diverticulosis of intestine Sister Ovarian cancer Colon cancer Grandfather Cancer Aunt Cancer Uncle Cancer Grandmother (Maternal) Cancer Other No significant family history Social History Smoking Status: Former smoker Tobacco Type: Cigarettes Second Hand Exposure: No; Do You Dip or Chew Tobacco: No; Hx Alcohol Use: No Hx Substance Use: No Preferred Language: Sudanese Communication Ability: Effective Visual Impairment: No Limitations Lithograph Printer Required: No Beliefs That Will Affect Care: None Current Living Situation: Spouse Current Living Situation Comment: lives with 2 cats as well current occupational status: retired Other Information That Helps Us Care for You: No Feels Safe at Home: Yes Safety Concerns: Feels Safe At This Time Diet: other and regular Diet Comment: limited red meat caffeine: Yes (1 cup daily) Dental Care, Regularly: Yes Physical Activity Frequency: Does not Exercise Seatbelt Use: always Do you think of yourself as: straight/heterosexual Gender Identity: Male Assistive Devices: Walker Review of Systems Constitutional: no fever Eyes: no problem reported Ear, Nose, Mouth, Throat: no problem reported Respiratory: no cough and no dyspnea Cardiovascular: no chest pain Gastrointestinal: no abdominal pain, no nausea, no vomiting and no diarrhea/loose stools Genitourinary: no dysuria or no hematuria Integumentary: no rash Neurologic: + unsteadiness and + falls; no localized weakness Physical Exam Constitutional: + frail appearing; not in distress Eyes: PERRL, conjunctivae normal, anicteric sclerae ENMT: external ear and nose normal, oropharynx normal Neck: trachea midline, no thyromegaly no carotid bruit Respiratory: normal respiratory effort, lungs clear to auscultation Cardiovascular: RRR, no murmur, no edema Extremities: no edema symmetric radial, PT pulses Gastrointestinal (Abdomen): normal bowel sounds, soft, nontender, no hepatosplenomegaly no vascular bruit Skin: + turgor decreased Neurologic: no focal motor deficits Psychiatric: Affect: + anxious affect Results & Data Vital Signs (Past 12 Hours) Vital Signs Temp Pulse Pulse Resp BP Pulse Ox Pulse Ox 02/09/25 05:57 56 L 02/09/25 03:15 36.4 C L 58 L 20 153/74 H 96 02/09/25 02:55 36.4 C L 58 L 20 153/74 H 96 02/09/25 02:55 96 02/09/25 02:30 54 L 17 164/73 H 94 02/09/25 02:00 53 L 16 159/82 H 96 02/09/25 01:50 57 L 17 170/80 H 97 02/09/25 01:40 55 L 18 196/89 H 98 02/09/25 01:00 53 L 15 190/96 H 95 02/09/25 00:30 53 L 17 195/83 H 96 02/09/25 00:00 54 L 16 193/93 H 97 02/08/25 23:30 51 L 16 210/95 H 97 02/08/25 23:23 52 L 16 212/100 H 93 02/08/25 23:20 56 L 19 220/105 H 98 02/08/25 23:00 64 18 197/99 H 96 02/08/25 22:00 52 L 18 201/103 H 97 O2 Del Method O2 Del Method 02/09/25 05:57 02/09/25 03:15 Room Air 02/09/25 02:55 Room Air 02/09/25 02:55 Room Air 02/09/25 02:30 Room Air 02/09/25 02:00 Room Air 02/09/25 01:50 Room Air 02/09/25 01:40 Room Air 02/09/25 01:00 Room Air 02/09/25 00:30 Room Air 02/09/25 00:00 Room Air 02/08/25 23:30 Room Air 02/08/25 23:23 Room Air 02/08/25 23:20 Room Air 02/08/25 23:00 Room Air 02/08/25 22:00 Room Air Laboratory Results Laboratory Results WBC 12.28 K/ul (4.8-10.8) H 02/09/25 05:21 RBC 4.30 M/uL (4.70-6.10) L 02/09/25 05:21 Hgb 13.8 g/dl (14.0-18.0) L 02/09/25 05:21 Hct 40.4 % (42.0-52.0) L 02/09/25 05:21 MCV 94.0 fL (80.0-100.0) 02/09/25 05:21 MCH 32.1 pg (25.0-34.0) 02/09/25 05:21 MCHC 34.2 g/dL (32.0-36.0) 02/09/25 05:21 RDW Std Deviation 49.1 fL (36.4-46.3) H 02/09/25 05:21 RDW Coeff of Mehnaz 14.5 % (11.5-14.5) 02/09/25 05:21 Plt Count 122 K/uL (130-400) L 02/09/25 05:21 MPV 11.1 fL (9.4-12.4) 02/09/25 05:21 Immature Gran % (Auto) 0.4 % 02/09/25 05:21 Neut % (Auto) 64.3 % 02/09/25 05:21 Lymph % (Auto) 22.4 % 02/09/25 05:21 Weber % (Auto) 7.4 % 02/09/25 05:21 Eos % (Auto) 5.0 % 02/09/25 05:21 Baso % (Auto) 0.5 % 02/09/25 05:21 Neut # (Auto) 7.89 K/uL (1.40-6.50) H 02/09/25 05:21 Lymph # (Auto) 2.75 K/uL (1.20-3.40) 02/09/25 05:21 Weber # (Auto) 0.91 K/uL (0.11-0.59) H 02/09/25 05:21 Eos # (Auto) 0.62 K/uL (0.00-0.50) H 02/09/25 05:21 Baso # (Auto) 0.06 K/uL (0.00-0.20) 02/09/25 05:21 Immature Gran # (Auto) 0.05 K/uL (0.01-0.20) 02/09/25 05:21 Sodium 142 mmol/L (136-145) 02/09/25 05:21 Potassium 3.7 mmol/L (3.5-5.1) 02/09/25 05:21 Chloride 107 mmol/L (98-107) 02/09/25 05:21 Carbon Dioxide 29 mmol/L (21-32) 02/09/25 05:21 Anion Gap 6 (3-11) 02/09/25 05:21 BUN 20 mg/dl (6-23) 02/09/25 05:21 Creatinine 1.01 mg/dl (0.6-1.4) 02/09/25 05:21 Est Cr Clr Drug Dosing 53.6 ml/min 02/09/25 05:21 eGFR 73.79 02/09/25 05:21 BUN/Creatinine Ratio 19.8 (10-20) 02/09/25 05:21 Glucose 88 mg/dl (70-99(Fasting)) 02/09/25 05:21 Calcium 9.4 mg/dl (8.6-10.3) 02/09/25 05:21 Magnesium 1.8 mg/dl (1.7-2.4) 02/09/25 05:21 Total Bilirubin 0.9 mg/dl (0.2-1.0) 02/08/25 18:51 AST 25 U/L (13-39) 02/08/25 18:51 ALT 19 U/L (7-52) 02/08/25 18:51 Alkaline Phosphatase 91 U/L (34-104) 02/08/25 18:51 Troponin I High Sens 17.5 pg/ml (0-20) 02/08/25 20:29 Total Protein 6.4 gm/dl (6.0-8.3) 02/08/25 18:51 Albumin 3.5 gm/dl (3.4-5.0) 02/08/25 18:51 Globulin 2.9 gm/dl (2.5-4.0) 02/08/25 18:51 Albumin/Globulin Ratio 1.2 (0.9-2) 02/08/25 18:51 Urine Color Yellow 02/08/25 21:05 Urine Appearance Clear (Clear) 02/08/25 21:05 Urine pH 6.5 (4.5-7.5) 02/08/25 21:05 Ur Specific [place] 1.020 (1.000-1.030) 02/08/25 21:05 Urine Protein 1+ (Negative) H 02/08/25 21:05 Urine Glucose (UA) Negative (Negative) 02/08/25 21:05 Urine Ketones Trace (Negative) H 02/08/25 21:05 Urine Blood 1+ (Negative) H 02/08/25 21:05 Urine Nitrite Negative (Negative) 02/08/25 21:05 Urine Bilirubin Negative (Negative) 02/08/25 21:05 Urine Urobilinogen Negative (Negative) 02/08/25 21:05 Ur Leukocyte Esterase Negative (Negative) 02/08/25 21:05 Urine WBC (Auto) 0-5 /hpf (0-5) 02/08/25 21:05 Urine RBC (Auto) 11-20 /hpf (0-2) H 02/08/25 21:05 U Hyaline Cast (Auto) 0-2 /lpf (0-2) 02/08/25 21:05 U Epithel Cells (Auto) 0-2 /hpf (0-2) 02/08/25 21:05 Urine Bacteria (Auto) None Seen (None Seen) 02/08/25 21:05 Urine Comment 02/08/25 21:05 Impressions Chest X-Ray 02/08/25 18:52 Chest radiograph, one view History: Chest pain Comparison: 02/06/2025 Findings: Single AP view of the chest performed. No focal consolidation or pleural effusion. No pneumothorax. The cardiomediastinal silhouette is within normal limits. Normal pulmonary vascularity. No evidence for lymphadenopathy. No visualized bony or soft tissue abnormality. Impression: Normal chest radiograph Electronically signed by Xander Montes 02-08-2025 7:[address] 02/08/25 19:06 EXAM: CT head/brain wo con CLINICAL HISTORY: headache TECHNIQUE: Axial non-contrast CT scan of the brain was performed from the skull base to the high parietal region. One of the following dose reduction techniques were utilized for this exam: Automated exposure control, adjustment of the mA and/or kV according to patient size, use of iterative reconstruction. CTDI: 38.62 mGy, DLP: 625.80 mGy-cm. COMPARISON: CT dated 02/06/2025 and 01/27/2025. Previous MRI dated 01/10/2025. FINDINGS: Brain Parenchyma: Age related involutional changes. Normal attenuation of the cerebral hemispheres, cerebellum, and brainstem. No evidence of acute infarct, hemorrhage, or mass effect. No abnormal areas of hypo- or hyperattenuation. Ventricular System: Ventricles are normal in size and configuration. No evidence of hydrocephalus or ventricular enlargement. Subarachnoid Spaces: Normal sulci and cisterns. No evidence of subarachnoid hemorrhage or extra-axial fluid collections. Cerebellum and Brainstem: No masses, lesions, or areas of abnormal density. Orbits: Normal appearance of the globes, optic nerves, and extraocular muscles. No evidence of orbital masses or abnormal density. Sinuses: Clear paranasal sinuses. No evidence of sinusitis or mucosal thickening. Mastoid Air Cells: Clear mastoid air cells. No evidence of mastoiditis. Skull: Post surgical changes of craniotomy in left frontal bone. Old. IMPRESSION: 1. No acute intracranial abnormality detected. 2. Age related involutional changes. 3. No significant interval change from priors. Electronically signed by Amaury Victor 02-08-2025 8:43 PM PG Care Time/CCT Total # of Minutes Spent Total Time Spent with Patient: Total time spent is greater than 50% in coordination of care (as documented) at patient's floor/unit and/or counseling patient: Coding Level of Care Code 59358 IN/OBS CONSULT LVL 5,80M Diagnoses Hypertension I10 Chronic kidney disease, stage III (moderate) N18.30 Chronic kidney disease stage 3 subtype: unspecified whether 3a or 3b Anxiety F41.9 (2) Chronic kidney disease, stage III (moderate) Chronic kidney disease stage 3 subtype: unspecified whether 3a or 3b Qualified Code(s): N18.30 - Chronic kidney disease, stage 3 unspecified
[2025-02-09 09:38] LABS: Thyroid Stimulating Hormone < 0.010 uIu/ml (0.300-4.500)
[2025-02-09] MEDS: TESTOSTERONE~ORDER AWAITING ACTION SCH (09:39)
[2025-02-09] MEDS: SERTRALINE HCL 100 MG TABLET PO SCH (09:40)
[2025-02-09] MEDS: HEPARIN SOD 5,000 UNIT/0.5 ML VIAL SQ SCH (09:43)
[2025-02-09] MEDS: ISOSORBIDE MONO EXTENDED REL 30 MG TABCR PO SCH (09:43)
[2025-02-09] MEDS: ASPIRIN 81 MG ECTAB PO SCH (09:43)
[2025-02-09] MEDS: FERROUS SULFATE 325 MG TAB PO SCH (09:43)
[2025-02-09] MEDS: ATORVASTATIN 40 MG TAB PO SCH (09:45)
[2025-02-09] MEDS: MAGNESIUM OXIDE 400 MG TAB PO SCH (09:45)
[2025-02-09] MEDS: ASCORBIC ACID 500 MG TAB PO SCH (09:46)
[2025-02-09] MEDS: BUMETANIDE 1 MG TAB PO SCH (09:46)
[2025-02-09] MEDS: CYANOCOBALAMIN (B-12) 500 MCG TABLET PO SCH (09:47)
[2025-02-09] MEDS: TICAGRELOR 90 MG TAB PO SCH (09:47)
[2025-02-09] MEDS: DICYCLOMINE HCL 20 MG TAB PO SCH (09:48)
[2025-02-09] MEDS: lisinopril 5 MG TAB PO SCH (09:48)
[2025-02-09] MEDS: METOPROLOL SUCC 50MG EXT REL TAB PO SCH (09:50)
[2025-02-09] MEDS: DULoxetine HCL 30 MG CAP PO SCH (09:51)
[2025-02-09] MEDS: DOCUSATE SODIUM/SENNA 50/8.6MG TAB PO SCH (09:52)
[2025-02-09] MEDS: HYDROCORTISONE 10 MG TAB PO SCH ×2 (09:52→21:05)
[2025-02-09] MEDS: CEROVITE ADV FORMULA TAB PO SCH (09:52)
[2025-02-09] MEDS: DOCUSATE SODIUM 100 MG CAP PO SCH (09:53)
[2025-02-09] MEDS: PREGABALIN 50 MG CAP PO SCH (09:53)
--- NOTE | 2025-02-09 10:35 | Electrocardiogram Report ---
Test Reason : Blood Pressure : */* mmHG Vent. Rate : 62 BPM Atrial Rate : 62 BPM P-R Int : 166 ms QRS Dur : 90 ms QT Int : 410 ms P-R-T Axes : 31 -30 5 degrees QTcB Int : 416 ms Normal sinus rhythm Left axis deviation Possible Old Inferior infarct Abnormal ECG When compared with ECG of 06-Feb-2025 08:17, No significant change was found Confirmed by Kael Delacruz ([id number]) on 02/09/2025 10:35:12 AM Referred By: Shalom Lieberman Confirmed By: Kael Delacruz
[2025-02-09] MEDS: ONDANSETRON INJ 2 MG/ML 2 ML VIAL IV PRN (10:55)
[2025-02-09] MEDS: amLODIPine BESYLATE 5 MG TAB PO SCH (11:01)
[2025-02-09] MEDS: DOXAZosin MESYLATE 4 MG TAB PO SCH (21:02)
[2025-02-09] MEDS: TAMSULOSIN HCL 0.4 MG CAP PO SCH (21:02)
[2025-02-09] MEDS: FINASTERIDE 5 MG TAB PO SCH (21:02)
[2025-02-09] MEDS: QUEtiapine FUMARATE 25 MG TABLET PO SCH (21:05)
[2025-02-10 06:11] LABS: Hemoglobin 11.9 g/dl (14.0-18.0); Mean Corpuscular Hemoglobin 31.6 pg (25.0-34.0); Mean Corpuscular Volume 92.8 fL (80.0-100.0); Mean Platelet Volume 11.4 fL (9.4-12.4); Platelet Count 120 K/uL (130-400); RDW Coefficient of Variation 14.3 % (11.5-14.5); RDW Standard Deviation 48.4 fL (36.4-46.3); Red Blood Count 3.77 M/uL (4.70-6.10); White Blood Count 7.79 K/ul (4.8-10.8)
[2025-02-10] MEDS: HYDROmorphone INJ 0.5 MG/0.5 ML SYR IV PRN (06:22)
[2025-02-10 06:27] LABS: Anion Gap 6 (3-11); BUN Creatinine Ratio 19.5 (10-20); Blood Urea Nitrogen 22 mg/dl (6-23); Calcium 8.5 mg/dl (8.6-10.3); Carbon Dioxide 30 mmol/L (21-32); Chloride 107 mmol/L (98-107); Creatinine Clr Calc Pharmacy 47.9 ml/min; Glucose 88 mg/dl (70-99(Fasting)); Sodium 143 mmol/L (136-145)
[2025-02-10 07:33] LABS: Appearance Urine Clear (Clear); Bilirubin Urine Negative (Negative); Blood Urine Negative (Negative); Color Urine Yellow; Glucose Urine UA Negative (Negative); Ketones Urine Trace (Negative); Leukocyte Esterase Urine Negative (Negative); Nitrite Urine Negative (Negative); Protein Urine Negative (Negative); Specific Gravity Urine 1.014 (1.000-1.030); Urobilinogen Urine Negative (Negative); pH Urine 5.5 (4.5-7.5)
[2025-02-10 07:35] LABS: Creatinine Urine Random 101.6 mg/dl; Protein Creatinine Ratio Urine 0.1 (0-0.2); Total Protein Urine Random 11.2 mg/dl (0-11.9)
--- NOTE | 2025-02-10 09:03 | Nephrology Progress Note ---
Date of Service February 10, 2025 Assessment & Plan (1) Hypertension: Plan: * Admitted due to hypertensive urgency. Patient reports adherence with prescribed medications but home medication list does not include amlodipine, lisinopril or PRN clonidine that have been prescribed as outpatient * Clinically suspect medication nonadherence. Patient likely requires assistance at home to administer medications properly. May need to consider home health nursing to fill medication pill box weekly or pharmacy pill packs * Renal artery Doppler 12/30 was negative for MARQUITA * Will not initiate further evaluation for secondary causes as patient is on relatively low doses of BP medications and adherence is questionable * Recommend 1500 mg/day NaCl restricted diet * BP has improved since admission. SBP 120-160 mm Hg last 24 hours * Continue metoprolol succinate 50 mg qAM, isosorbide 30 mg qAM, amlodipine 5 mg qAM, bumetanide 1 mg qAM * Will increase lisinopril to 10 mg qAM * Monitor BP, BMP (2) Chronic kidney disease, stage III (moderate): Plan: * CKD stage G3a/A2 (moderate impairment). Baseline Cr 1.5-1.8 w/ EGFR 45 cc/min. Hematuria due to renal cysts. Urine sediment is negative for cellular casts. 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 Stable on imaging studies * 06/02 Urology evaluation: large R multicystic kidney. Urology indicated that these are simple cysts and did not recommend nephrectomy. Urology advised reevaluation in 1 year, patient declined * 06/[address]: multicystic dysplastic R kidney. L kidney without hydronephrosis * 05/06 Renal US revealed a 19 cm multicystic R kidney. L kidney was 10 cm with two small simple cysts. There was no solid renal mass reported. * Kidney function is stable at this time. Volume status and electrolyte balance are acceptable (3) Anxiety: Plan: * Severe anxiety despite duloxetine and seroquel. This may be impacting ADL's and ability to administer medications properly. Consider consultation w/ psychiatry * Possible opioid use disorder. Has h/o spinal stenosis w/ neurogenic claudication. Was under the care of pain management but declined further injections. Was last seen by PCP 01/07 and noted to have increasing use of opioids. Spouse feels this has resulted in lethargy and recent fall w/ sternal fracture. Admission and Anticipated Discharge Date Admission Date: February 09, 2025 Subjective Mr. Wilkerson was evaluated in his hospital room this morning. He c/o discomfort from recent fall and sternal fracture. He currently denies MCRAE, angina, or dyspnea. He is tolerating his current medical regimen without side effect Review of Systems Constitutional: no fever Eyes: no problem reported Ear, Nose, Mouth, Throat: no problem reported Respiratory: no cough and no dyspnea Cardiovascular: no chest pain Gastrointestinal: no abdominal pain, no nausea, no vomiting and no diarrhea/loose stools Genitourinary: no dysuria or no hematuria Integumentary: no rash Neurologic: + unsteadiness and + falls; no localized weakness Physical Exam Constitutional: + frail appearing; not in distress Eyes: PERRL, conjunctivae normal, anicteric sclerae ENMT: external ear and nose normal, oropharynx normal Neck: trachea midline, no thyromegaly Respiratory: normal respiratory effort, lungs clear to auscultation Cardiovascular: RRR, no murmur, no edema Extremities: no edema Gastrointestinal (Abdomen): normal bowel sounds, soft, nontender, no hepatosplenomegaly Skin: + turgor decreased Neurologic: no focal motor deficits Psychiatric: Affect: + anxious affect Results & Data Vital Signs (Past 12 Hours) Vital Signs Temp Pulse Pulse Resp BP Pulse Ox Pulse Ox 02/10/25 08:17 36.6 C 64 18 147/69 H 94 02/10/25 04:00 36.8 C 62 16 143/86 H 95 02/10/25 04:00 95 02/10/25 00:04 59 L 02/10/25 00:02 36.9 C 60 16 134/61 95 O2 Del Method O2 Del Method 02/10/25 08:17 Room Air 02/10/25 04:00 Room Air 02/10/25 04:00 Room Air 02/10/25 00:04 02/10/25 00:02 Room Air Laboratory Results Laboratory Results - last 24 hr 02/09/25 02/10/25 02/10/25 05:21 05:33 06:00 WBC 7.79 RBC 3.77 L Hgb 11.9 L Hct 35.0 L MCV 92.8 MCH 31.6 MCHC 34.0 RDW Std Deviation 48.4 H RDW Coeff of Mehnaz 14.3 Plt Count 120 L MPV 11.4 Sodium 143 Potassium 4.0 Chloride 107 Carbon Dioxide 30 Anion Gap 6 BUN 22 Creatinine 1.13 Est Cr Clr Drug Dosing 47.9 eGFR 64.49 BUN/Creatinine Ratio 19.5 Glucose 88 Calcium 8.5 L TSH < 0.010 L Free T4 1.77 H Urine Color Yellow Urine Appearance Clear Urine pH 5.5 Ur Specific [place] 1.014 Urine Protein Negative Urine Glucose (UA) Negative Urine Ketones Trace H Urine Blood Negative Urine Nitrite Negative Urine Bilirubin Negative Urine Urobilinogen Negative Ur Leukocyte Esterase Negative Ur Random Creatinine 101.6 U Random Total Protein 11.2 Protein/Creatinin Ratio 0.1 PG Care Time/CCT Total # of Minutes Spent Total Time Spent with Patient: Total time spent is greater than 50% in coordination of care (as documented) at patient's floor/unit and/or counseling patient: Coding Level of Care Code 28580 SUB INP/OBS CARE 3/50MIN Diagnoses Hypertension I10 Chronic kidney disease, stage III (moderate) N18.30 Chronic kidney disease stage 3 subtype: unspecified whether 3a or 3b Anxiety F41.9 (2) Chronic kidney disease, stage III (moderate) Chronic kidney disease stage 3 subtype: unspecified whether 3a or 3b Qualified Code(s): N18.30 - Chronic kidney disease, stage 3 unspecified
[2025-02-10] MEDS: lisinopril 5 MG TAB PO STA (09:40)
[2025-02-10 10:21] LABS: Thyroid Stimulating Hormone < 0.010 uIu/ml (0.300-4.500)
--- NOTE | 2025-02-10 18:02 | Hospitalist Progress Note ---
Date of Service February 10, 2025 delayed entry date of service noted above Assessment & Plan (1) Hypertensive urgency: Plan: 84-year-old male with past med history significant for CAD status post stenting 06/2024, hypertension, hyperlipidemia, history of pituitary adenoma s/p surgery, panhypopituitarism(growth hormone deficiency, ACTH deficiency, central hypogonadism, toxic multinodular goiter as per records), hyperprolactinemia per records, chronic steroid treatment, CKD stage III, chronic anemia baseline hemoglobin 12-13, melanoma per records, BPH, anxiety/mood disorder, history of DVT, chronic back pain, past tobacco use, recent fall and sternal fracture comes because of headache and hypertensive urgency. Patient states he was having severe headache today. When blood pressure checked was in 200s so he came to the ER. He had nausea but currently nausea is improved. Vision is okay. No runny nose or sore throat. No cough. Denies chest pain or shortness of breath. No abdominal pain. Constipated because of using narcotic pain medications for her sternal fracture. Not micturate much says having some difficulty micturating. Hypertensive urgency Continue home medications of Imdur, lisinopril, metoprolol succinate and Bumex At home on clonidine as needed but patient having bradycardia Will place on IV hydralazine as needed Consult nephrology in a.m. for further recommendations 02/10 BP on the lower side monitor decrease Lisinoppril Headache Most from above CT head is okay Pain control Patient is status post fall and sternal fracture Pain control History of CAD s/p stent On aspirin, Brilinta and statin metoprolol and Imdur Carotid artery stenosis On aspirin Brilinta and statin History of pituitary adenoma post surgery Panhypopituitarism Follows with nephrology On hydrocortisone and testosterone supplement History of multinodular goiter-thyroidism Previously on methimazole and history of methimazole intolerance and currently not on it. Will follow thyroid profile BPH On dutasteride tamsulosin and doxazosin Monitor for retention bladder scan tid Chronic back pain At home on Tylenol codeine as needed and Lyrica Insomnia On trazodone nightly Generalized anxiety disorder On Zoloft and Seroquel CKD stage III Baseline creatinine 1.8-2 Creatinine is 1.08 today Follows with nephrology DVT prophylaxis SCDs and heparin subcu Disposition Telemetry Full code. Admission and Anticipated Discharge Date Admission Date: February 09, 2025 Subjective seen resting in bed, comfortable oriented x 1-2 answers most questions appropriately states he feels fine overall denies headache, dizziness no chest pain, dyspnea, palpitations, dizziness no other symptoms Review of Systems Review of Systems: all noted and negative except for above Physical Exam Physical Exam: General- oriented x 1-2, not in distress, speaks in sentences with no effort or accessory muscle use Eyes- anicteric Neck- no JVD Lungs- clear breath sounds bilaterally, no rales/wheezes Heart- normal rate, regular rhythm; no murmurs Abdomen- normal bowel sounds, nondistended, soft, nontender Extremities- no pretibial edema, no calf tenderness Neuro- alert, oriented x 3; no gross focal neurologic deficits Skin- warm & dry Results & Data Results & Data Vital Signs (Past 12 Hours) Vital Signs Temp Pulse Resp BP BP Pulse Ox O2 Del Method 02/10/25 14:54 36.7 C 68 16 97/53 L 91 Room Air 02/10/25 11:39 36.5 C 71 18 101/57 L 93 Room Air 02/10/25 08:17 36.6 C 64 18 147/69 H 94 Room Air all noted and reviewed including below
[2025-02-11 06:42] LABS: BUN Creatinine Ratio 25.4 (10-20); Calcium 8.2 mg/dl (8.6-10.3); Creatinine Clr Calc Pharmacy 44.4 ml/min; Potassium 3.8 mmol/L (3.5-5.1)
[2025-02-11] MEDS: lisinopril 5 MG TAB PO SCH (08:55)
[2025-02-11] MEDS ORDERED: lisinopril 10 MG TAB PO SCH (09:00)
--- NOTE | 2025-02-11 09:10 | Nephrology Progress Note ---
Date of Service February 11, 2025 Assessment & Plan (1) Hypertension: Plan: * Admitted due to hypertensive urgency. Patient reports adherence with prescribed medications but home medication list does not include amlodipine, lisinopril or PRN clonidine that have been prescribed as outpatient * Suspect medication nonadherence as outpatient. He likely requires assistance at home to administer medications properly. May need to consider home health nursing to fill medication pill box weekly or pharmacy pill packs * Renal artery Doppler 12/30 was negative for MARQUITA * Will not initiate further evaluation for secondary causes as patient is on relatively low doses of BP medications and adherence is questionable * Recommend 1500 mg/day NaCl restricted diet * BP has improved since admission. SBP was in mid 90's yesterday when taking prescribed outpatient regimen * Continue metoprolol succinate 50 mg qAM, isosorbide 30 mg qAM, amlodipine 5 mg qAM, bumetanide 1 mg qAM * Will reduce lisinopril back to 5 mg qAM * Monitor BP, BMP (2) Chronic kidney disease, stage III (moderate): Plan: * CKD stage G3a/A2 (moderate impairment). Baseline Cr 1.5-1.8 w/ EGFR 45 cc/min. Hematuria due to renal cysts. Urine sediment is negative for cellular casts. 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 Stable on imaging studies * 06/02 Urology evaluation: large R multicystic kidney. Urology indicated that these are simple cysts and did not recommend nephrectomy. Urology advised reevaluation in 1 year, patient declined * 06/[address]: multicystic dysplastic R kidney. L kidney without hydronephrosis * 05/06 Renal US revealed a 19 cm multicystic R kidney. L kidney was 10 cm with two small simple cysts. There was no solid renal mass reported. * Kidney function is stable at this time. Volume status and electrolyte balance are acceptable (3) Anxiety: Plan: * Severe anxiety despite duloxetine and seroquel. This may be impacting ADL's and ability to administer medications properly. Consider consultation w/ psychiatry * Possible opioid use disorder. Has h/o spinal stenosis w/ neurogenic claudication. Was under the care of pain management but declined further injections. Was last seen by PCP 01/07 and noted to have increasing use of opioids. Spouse feels this has resulted in lethargy and recent fall w/ sternal fracture. Admission and Anticipated Discharge Date Admission Date: February 09, 2025 Subjective Mr. Wilkerson was evaluated in his hospital room this morning. He c/o discomfort from recent fall and sternal fracture. He currently denies MCRAE, angina, or dyspnea. He is tolerating his current medical regimen without side effect Review of Systems Constitutional: no fever Eyes: no problem reported Ear, Nose, Mouth, Throat: no problem reported Respiratory: no cough and no dyspnea Cardiovascular: no chest pain Gastrointestinal: no abdominal pain, no nausea, no vomiting and no diarrhea/loose stools Genitourinary: no dysuria or no hematuria Integumentary: no rash Neurologic: + unsteadiness and + falls; no localized weakness Physical Exam Constitutional: + frail appearing; not in distress Eyes: PERRL, conjunctivae normal, anicteric sclerae ENMT: external ear and nose normal, oropharynx normal Neck: trachea midline, no thyromegaly Respiratory: normal respiratory effort, lungs clear to auscultation Cardiovascular: RRR, no murmur, no edema Extremities: no edema Gastrointestinal (Abdomen): normal bowel sounds, soft, nontender, no hepatosplenomegaly Skin: + turgor decreased Neurologic: no focal motor deficits Psychiatric: Affect: + anxious affect Results & Data Vital Signs (Past 12 Hours) Vital Signs Temp Pulse Pulse Resp BP Pulse Ox Pulse Ox 02/11/25 07:54 36.7 C 72 16 164/77 H 94 02/11/25 04:00 94 02/11/25 03:28 36.8 C 66 18 158/68 H 94 02/11/25 00:00 64 02/10/25 23:39 36.8 C 60 18 141/67 H 96 O2 Del Method O2 Del Method 02/11/25 07:54 Room Air 02/11/25 04:00 Room Air 02/11/25 03:28 Room Air 02/11/25 00:00 02/10/25 23:39 Room Air Laboratory Results Laboratory Results - last 24 hr 02/10/25 02/10/25 02/11/25 05:33 10:41 05:53 Sodium 142 Potassium 3.8 Chloride 107 Carbon Dioxide 29 Anion Gap 6 BUN 31 H Creatinine 1.22 Est Cr Clr Drug Dosing 44.4 eGFR 58.83 BUN/Creatinine Ratio 25.4 H Glucose 107 H Calcium 8.2 L TSH < 0.010 L Free T4 1.80 H Free T3 3.22 Diagnostic Findings Laboratory Results - last 24 hr 02/10/25 02/10/25 02/11/25 05:33 10:41 05:53 Sodium 142 Potassium 3.8 Chloride 107 Carbon Dioxide 29 Anion Gap 6 BUN 31 H Creatinine 1.22 Est Cr Clr Drug Dosing 44.4 eGFR 58.83 BUN/Creatinine Ratio 25.4 H Glucose 107 H Calcium 8.2 L TSH < 0.010 L Free T4 1.80 H Free T3 3.22 PG Care Time/CCT Total # of Minutes Spent Total Time Spent with Patient: Total time spent is greater than 50% in coordination of care (as documented) at patient's floor/unit and/or counseling patient: Coding Level of Care Code 89301 SUB INP/OBS CARE 3/50MIN Diagnoses Hypertension I10 Chronic kidney disease, stage III (moderate) N18.30 Chronic kidney disease stage 3 subtype: unspecified whether 3a or 3b Anxiety F41.9 (2) Chronic kidney disease, stage III (moderate) Chronic kidney disease stage 3 subtype: unspecified whether 3a or 3b Qualified Code(s): N18.30 - Chronic kidney disease, stage 3 unspecified
[2025-02-11] MEDS: HYDROmorphone INJ 0.5 MG/0.5 ML SYR IV PRN (09:49)
--- NOTE | 2025-02-11 12:01 | Psychiatric Consultation ---
Date of Consultation February 11, 2025 Impression / Recommendations Impression Diagnostically no current evidence for anxiety or mood symptoms. In the past he's been described as struggling with opioid seeking behaviors and misuse which seems to contribute to mood symptoms. Currently his pain is being treated for his sternal fracture and he seems comfortable and willing to continue with plan of care. Suspect events on 02/09 may have been driven by some delirium and/or his known history of mild cognitive impairment. Acute risk of self-harm is low given denial of SI. Overall, I spent a total of 45 minutes with this case including review of chart records, review of labwork, review of EKG QTc, direct evaluation of the patient at bedside, counseling the patient, discussion of the patient with the Nurse and with the hospitalist provider, discussion with the psychiatric liason during c linical rounds and documentation in the electronic health record. (1) Sternal fracture: Encounter type: initial encounter Fracture type: closed Sternal location: manubrium Qualified Code(s): S22.21XA - Fracture of manubrium, initial encounter for closed fracture (2) Hypertensive urgency: Plan -No further recommendations at this time -As per previous psychiatry consult in September 2024, could consider use of buprenorphine for pain if opioid seeking behavior presents as pain medications are eventually tapered once sternal fracture heals -Continue psychiatric medications as ordered (duloxetine 30mg daily, sertraline 200mg daily, Seroquel 25mg HS) Psych History Identifying Data 84-year-old male with past med history significant for CAD status post stenting 06/2024, hypertension, hyperlipidemia, history of pituitary adenoma s/p surgery, panhypopituitarism(growth hormone deficiency, ACTH deficiency, central hypogonadism, toxic multinodular goiter as per records), hyperprolactinemia per records, chronic steroid treatment, CKD stage III, chronic anemia baseline hemoglobin 12-13, melanoma per records, BPH, anxiety, opioid misuse, history of DVT, chronic back pain, past tobacco use, recent fall and sternal fracture comes because of headache and hypertensive urgency. Chief Complaint "Not too bad". History of Present Illness Ronny is known to the psychiatry consult service with previous consults on 10/16/2024, 08/23/2024 & 08/11/2024. Consulted for possible anxiety after he was becoming more aggravated on 02/10/2025 and asking to leave the hospital. He got olanzapine 2.5mg IM on the morning of 02/09/2025 after leaving his room and demanding to go home requiring security after he threatened to punch anyone who got in his way. Unclear how oriented he was at the time. Yesterday and today has been calm and only complaints noted are pain. With me he denies any anxiety stating "not at all". Denies depression. Denies SI noting "I love my life". He is oriented to person, place, time and situation telling me about his sternal fracture and that it causes pain but that "it just takes time to heal". States overall things are "not too bad" and he's focused on resting, controlling his pain and healing. Allergies Allergy/AdvReac Type Severity Reaction Status Date / Time lidocaine [From Lidoderm] AdvReac Intermediate Itching Verified 02/08/25 19:53 Home Medications Medication Instructions Recorded Confirmed Type aspirin 81 mg tablet,delayed 81 mg PO DAILY 08/07/24 02/08/25 History release dicyclomine 20 mg tablet 20 mg PO TID 08/07/24 02/08/25 History dutasteride 0.5 mg-tamsulosin ER 1 cap PO HS 08/07/24 02/08/25 History 0.4 mg capsule ext.release 24hr mphas isosorbide mononitrate 30 mg 30 mg PO QAM 08/07/24 02/08/25 History tablet,extended release 24 hr magnesium 250 mg tablet 250 mg PO QAM 08/07/24 02/08/25 History nitroglycerin 0.4 mg sublingual 0.4 mg sublingual DIRECTED PRN 08/07/24 02/08/25 History tablet Chest Pain calcium carbonate (Tums) 2,250 mg PO DAILY PRN Acid Reflux 08/22/24 02/08/25 History ##0 quetiapine 25 mg tablet (Seroquel) 25 mg PO HS 08/22/24 02/08/25 History calcium 600 mg-D3 800 unit-mag 40 1 tab PO BIDM 10/01/24 02/08/25 History de-ivhn-oqac-max-boron chew tablet (Caltrate 600-D Plus Minerals) docusate sodium 100 mg capsule 200 mg PO QAM 10/01/24 02/08/25 History (Colace) duloxetine 30 mg capsule,delayed 30 mg PO QAM 10/01/24 02/08/25 History release (Cymbalta) ferrous sulfate 325 mg (65 mg 325 mg PO QAM 10/08/24 02/08/25 History iron) tablet (Feosol) ascorbic acid (vitamin C) 500 mg 500 mg PO QAM 10/15/24 02/08/25 History tablet (Vitamin C) metoprolol succinate 50 mg 50 mg PO BIDM 10/15/24 02/08/25 History tablet,extended release 24 hr testosterone 1 pump topical QAM #75 grams 10/29/24 02/08/25 Rx acetaminophen 300 mg-codeine 30 mg 1 tab PO Q6H PRN Pain 01/10/25 02/08/25 History tablet triamcinolone acetonide 0.1 % 1 applic topical DIRECTED PRN 01/10/25 02/08/25 History topical cream Skin Irritation lisinopril 5 mg tablet 5 mg PO DAILY #30 tabs 01/11/25 02/08/25 Rx atorvastatin 40 mg tablet 40 mg PO DAILY 01/27/25 02/08/25 History bumetanide 1 mg tablet 1 mg PO QAM 01/27/25 02/08/25 History clonidine HCl 0.1 mg tablet 0.1 mg PO DAILY PRN hypertensive 01/28/25 02/08/25 Rx emergency #30 tabs oxycodone 5 mg tablet 5 mg PO Q6H PRN pain #20 tabs 02/06/25 02/08/25 Rx cyanocobalamin (vitamin B-12) 1,000 mcg PO DAILY 02/08/25 02/08/25 History 1,000 mcg tablet (Vitamin B-12) diclofenac sodium 1 % topical gel 2 g topical QID PRN Pain 02/08/25 02/08/25 History doxazosin 4 mg tablet 8 mg PO HS 02/08/25 02/08/25 History hydrocortisone 5 mg tablet 10 mg PO HS 02/08/25 02/08/25 History hydrocortisone 5 mg tablet 20 mg PO QAM 02/08/25 02/08/25 History qjqekgyazzri-pimbtjmc-eoptot 1 tab PO DAILY 02/08/25 02/08/25 History tablet (Multivitamin 50 Plus tablet) pregabalin 50 mg capsule 50 mg PO AMHS 02/08/25 02/08/25 History sertraline 100 mg tablet 200 mg PO DAILY 02/08/25 02/08/25 History ticagrelor 90 mg tablet (Brilinta) 90 mg PO BIDM 02/08/25 02/08/25 History Patient History Medical History Confusion TIA (transient ischemic attack) Dizziness HTN (hypertension) Anxiety Mild neurocognitive disorder Depression, unspecified CAD (coronary atherosclerotic disease) History of pituitary adenoma Chronic kidney disease, stage III (moderate) Panhypopituitarism Vitamin D deficiency History of DVT (deep vein thrombosis) Blind left eye Chronic cholecystitis Multiple renal cysts REPORTS ONLY HAS 1 FUNCTIONING KIDNEY - FOLLOWS W/ DR. TORRES BPH (benign prostatic hyperplasia) IBS (irritable bowel syndrome) GERD (gastroesophageal reflux disease) History of melanoma Hearing deficit BL MCRAE Lumbar herniated disc MULTIPLE Surgical History Hx laparoscopic cholecystectomy (06/03/19) Laparoscopic Cholecystectomy Dr. 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 Status post trigger finger release History of esophagogastroduodenoscopy (EGD) 04/20/2019. MAC no issues. History of colonoscopy History of melanoma excision CHEST - W/ SKIN GRAFTING. (LEFT GROIN DONOR SITE) Family History Sister Family hx of colon cancer Father Tobacco use Coronary heart disease Mother Diverticulosis of intestine Sister Ovarian cancer Colon cancer Grandfather Cancer Aunt Cancer Uncle Cancer Grandmother (Maternal) Cancer Other No significant family history Social History Smoking Status: Former smoker Tobacco Type: Cigarettes Second Hand Exposure: No; Do You Dip or Chew Tobacco: No; Hx Alcohol Use: No Hx Substance Use: No Preferred Language: Serbian Communication Ability: Effective Visual Impairment: No Limitations Grocery Checker Required: No Beliefs That Will Affect Care: None Current Living Situation: Spouse Current Living Situation Comment: lives with 2 cats as well current occupational status: retired Other Information That Helps Us Care for You: No Feels Safe at Home: Yes Safety Concerns: Feels Safe At This Time Diet: other and regular Diet Comment: limited red meat caffeine: Yes (1 cup daily) Dental Care, Regularly: Yes Physical Activity Frequency: Does not Exercise Seatbelt Use: always Do you think of yourself as: straight/heterosexual Gender Identity: Male Assistive Devices: None Physical Exam Vital Signs (Past 24 Hours): Last Vital Signs Temp 36.7 C 02/11/25 11:13 Pulse 65 02/11/25 11:13 Resp 16 02/11/25 11:13 BP 127/62 02/11/25 11:13 Pulse Ox 95 02/11/25 11:13 O2 Del Method Room Air 02/11/25 11:13 Results & Data (PSY) Medications Administered Amlodipine Besylate (Amlodipine Besylate 5 Mg Tab) 5 mg PO QAM [facility] Stop: 03/11/25 09:29 Last Admin: 02/11/25 08:57 Dose: 5 mg Documented By: Admin: 02/10/25 08:40 Dose: 5 mg Documented By: Admin: 02/09/25 11:01 Dose: 5 mg Documented By: FABIÁN Ascorbic Acid (Ascorbic Acid 500 Mg Tab) 500 mg PO QAM [facility] Stop: 03/11/25 08:59 Last Admin: 02/11/25 08:56 Dose: 500 mg Documented By: Admin: 02/10/25 08:40 Dose: 500 mg Documented By: Admin: 02/09/25 09:46 Dose: 500 mg Documented By: FABIÁN Aspirin (Aspirin 81 Mg Ectab) 81 mg PO DAILY [facility] Stop: 03/11/25 08:59 Last Admin: 02/11/25 08:56 Dose: 81 mg Documented By: Admin: 02/10/25 08:40 Dose: 81 mg Documented By: Admin: 02/09/25 09:43 Dose: 81 mg Documented By: FABIÁN Atorvastatin Calcium (Atorvastatin 40 Mg Tab) 40 mg PO DAILY [facility] Stop: 03/11/25 08:59 Last Admin: 02/11/25 08:56 Dose: 40 mg Documented By: Admin: 02/10/25 08:40 Dose: 40 mg Documented By: Admin: 02/09/25 09:45 Dose: 40 mg Documented By: FABIÁN Bumetanide (Bumetanide 1 Mg Tab) 1 mg PO QAM [facility] Stop: 03/11/25 08:59 Last Admin: 02/11/25 08:57 Dose: 1 mg Documented By: [facility] Admin: 02/10/25 08:41 Dose: 1 mg Documented By: Admin: 02/09/25 09:46 Dose: 1 mg Documented By: FABIÁN Cyanocobalamin (Cyanocobalamin (B-12) 500 Mcg Tablet) 1,000 mcg PO DAILY TOD Stop: 03/11/25 08:59 Last Admin: 02/11/25 08:55 Dose: 1,000 mcg Documented By: [facility] Admin: 02/10/25 08:41 Dose: 1,000 mcg Documented By: Admin: 02/09/25 09:47 Dose: 1,000 mcg Documented By: FABIÁN Dicyclomine HCl (Dicyclomine Hcl 20 Mg Tab) 20 mg PO TID TOD Stop: 03/11/25 08:59 Last Admin: 02/11/25 08:55 Dose: 20 mg Documented By: [facility] Admin: 02/10/25 21:45 Dose: Not Given Documented By: Admin: 02/10/25 13:42 Dose: 20 mg Documented By: Admin: 02/10/25 08:40 Dose: 20 mg Documented By: Admin: 02/09/25 20:50 Dose: Not Given Documented By: [facility] Admin: 02/09/25 15:29 Dose: Not Given Documented By: Admin: 02/09/25 09:48 Dose: 20 mg Documented By: FABIÁN Docusate Sodium (Docusate Sodium 100 Mg Cap) 200 mg PO QAM TOD Stop: 03/11/25 08:59 Last Admin: 02/11/25 09:01 Dose: 200 mg Documented By: [facility] Admin: 02/10/25 08:41 Dose: 200 mg Documented By: Admin: 02/09/25 09:53 Dose: 200 mg Documented By: FABIÁN Doxazosin Mesylate (Doxazosin Mesylate 4 Mg Tab) 8 mg PO HS TOD Stop: 03/11/25 20:59 Last Admin: 02/10/25 21:47 Dose: 8 mg Documented By: [facility] Admin: 02/09/25 21:02 Dose: 8 mg Documented By: RYAN Duloxetine HCl (Duloxetine Hcl 30 Mg Cap) 30 mg PO QAM TOD Stop: 03/11/25 08:59 Last Admin: 02/11/25 08:57 Dose: 30 mg Documented By: Admin: 02/10/25 08:41 Dose: 30 mg Documented By: Admin: 02/09/25 09:51 Dose: 30 mg Documented By: FABIÁN Ferrous Sulfate (Ferrous Sulfate 325 Mg Tab) 325 mg PO QAM TOD Stop: 03/11/25 08:59 Last Admin: 02/11/25 08:57 Dose: 325 mg Documented By: Admin: 02/10/25 08:41 Dose: 325 mg Documented By: Admin: 02/09/25 09:43 Dose: 325 mg Documented By: FABIÁN Finasteride (Finasteride 5 Mg Tab) 5 mg PO HS [facility] Stop: 03/11/25 20:59 Last Admin: 02/10/25 21:47 Dose: 5 mg Documented By: [facility] Admin: 02/09/25 21:02 Dose: 5 mg Documented By: RYAN Heparin Sodium (Porcine) (Heparin Sod 5,000 Unit/0.5 Ml Vial) 5,000 units SQ Q12 TOD Stop: 03/11/25 08:59 Last Admin: 02/11/25 08:57 Dose: Not Given Documented By: Admin: 02/10/25 21:46 Dose: 5,000 units Documented By: C Admin: 02/10/25 08:41 Dose: 5,000 units Documented By: Admin: 02/09/25 21:09 Dose: Not Given Documented By: [facility] Admin: 02/09/25 09:43 Dose: Not Given Documented By: FABIÁN Hydrocortis[facility] ([facility] 10 Mg Tab) [facility]: 03/11/25 08:59 Last Admin: 02/11/25 08:57 Dose: 20 mg Documented By: [facility] Admin: 02/10/25 08:41 Dose: 20 mg Documented By: Admin: 02/09/25 09:52 Dose: 20 mg Documented By: FABIÁN Hydrocortisone (Hydrocortisone 10 Mg Tab) 10 mg PO HS TOD Stop: 03/11/25 20:59 Last Admin: 02/10/25 21:47 Dose: 10 mg Documented By: C Admin: 02/09/25 21:05 Dose: 10 mg Documented By: [facility] Hydromorphone HCl (Hydromorphone Inj 0.5 Mg/0.5 Ml Syr) 0.25 mg IV Q6H PRN PRN Reason: Mod-Sev Pain (Scale 4-10) Stop: 02/23/25 02:54 Last Admin: 02/11/25 09:49 Dose: 0.25 mg Documented By: BRENDAN Hydromorphone HCl (Hydromorphone Inj 0.5 Mg/0.5 Ml Syr) 0.5 mg IV Q6H PRN PRN Reason: Severe Pain (Scale 7, 8, 9,10) Stop: 02/23/25 02:54 Last Admin: 02/10/25 21:47 Dose: 0.5 mg Documented By: Admin: 02/10/25 06:22 Dose: 0.5 mg Documented By: RYAN Isosorbide Mononitrate (Isosorbide [place] Extended Rel 30 Mg Tabcr) 30 mg PO [facility] Stop: 03/11/25 08:59 Last Admin: 02/11/25 08:57 Dose: 30 mg Documented By: Admin: 02/10/25 08:41 Dose: 30 mg Documented By: Admin: 02/09/25 09:43 Dose: 30 mg Documented By: FABIÁN Lisinopril (Lisinopril 5 Mg Tab) 5 mg PO DAILY [facility] Stop: 03/13/25 08:59 Last Admin: 02/11/25 08:55 Dose: 5 mg Documented By: BRENDAN Magnesium Oxide (Magnesium Oxide 400 Mg Tab) [facility] [place]: 03/11/25 08:59 Last Admin: 02/11/25 08:56 Dose: 400 mg Documented By: Admin: 02/10/25 08:41 Dose: 400 mg Documented By: Admin: 02/09/25 09:45 Dose: 400 mg Documented By: FABIÁN Metoprolol Succinate (Metoprolol Succ 50mg Ext Rel Tab) [facility] [place]: 03/11/25 07:59 Last Admin: 02/11/25 08:56 Dose: 50 mg Documented By: Admin: 02/10/25 17:15 Dose: Not Given Documented By: Admin: 02/10/25 08:40 Dose: 50 mg Documented By: Admin: 02/09/25 17:21 Dose: 50 mg Documented By: Admin: 02/09/25 09:50 Dose: 50 mg Documented By: FABIÁN Miscellaneous (Testosterone~Order Awaiting Action) 1 each N/A QS [facility] Stop: 03/11/25 07:59 Last Admin: 02/11/25 08:50 Dose: Not Given Documented By: Admin: 02/11/25 01:18 Dose: Not Given Documented By: Admin: 02/10/25 13:42 Dose: Not Given Documented By: Admin: 02/10/25 08:33 Dose: Not Given Documented By: Admin: 02/10/25 00:35 Dose: Not Given Documented By: Admin: 02/09/25 15:29 Dose: Not Given Documented By: Admin: 02/09/25 09:39 Dose: Not Given Documented By: FABIÁN Multivitamins/Minerals (Cerovite Adv Formula Tab) 1 tab PO DAILY [facility] Stop: 03/11/25 08:59 Last Admin: 02/11/25 08:56 Dose: 1 tab Documented By: Admin: 02/10/25 08:41 Dose: 1 tab Documented By: Admin: 02/09/25 09:52 Dose: 1 tab Documented By: FABIÁN Ondansetron HCl (Ondansetron Inj 2 Mg/Ml 2 Ml Vial) 4 mg IV Q6H PRN PRN Reason: Nausea Stop: 03/11/25 02:54 Last Admin: 02/09/25 10:55 Dose: 4 mg Documented By: FABIÁN Oxycodone HCl (Oxycodone Hcl Ir 5 Mg Tab (Immediate Release)) 5 mg PO Q6H PRN PRN Reason: pain Stop: 02/23/25 02:54 Last Admin: 02/11/25 09:01 Dose: 5 mg Documented By: [facility] Admin: 02/10/25 13:51 Dose: 5 mg Documented By: Admin: 02/09/25 17:26 Dose: 5 mg Documented By: Admin: 02/09/25 11:13 Dose: 5 mg Documented By: Admin: 02/09/25 04:20 Dose: 5 mg Documented By: [facility] Pregabalin (Pregabalin 50 Mg Cap) 50 mg PO ON LICENSE OF [facility] Stop: 03/11/25 08:59 Last Admin: 02/11/25 09:02 Dose: 50 mg Documented By: Admin: 02/10/25 21:47 Dose: 50 mg Documented By: [facility] Admin: 02/10/25 08:41 Dose: 50 mg Documented By: Admin: 02/09/25 21:02 Dose: 50 mg Documented By: [facility] Admin: 02/09/25 09:53 Dose: 50 mg Documented By: FABIÁN Quetiapine Fumarate (Quetiapine Fumarate 25 Mg Tablet) 25 mg PO HS TOD Stop: 03/11/25 20:59 Last Admin: 02/10/25 21:47 Dose: 25 mg Documented By: [facility] Admin: 02/09/25 21:05 Dose: 25 mg Documented By: [facility] Senna/Docusate Sodium (Docusate Sodium/Senna 50/8.6mg Tab) 1 tab PO BID TOD Stop: 03/11/25 08:59 Last Admin: 02/11/25 09:01 Dose: 1 tab Documented By: Admin: 02/10/25 21:45 Dose: Not Given Documented By: [facility] Admin: 02/10/25 08:41 Dose: 1 tab Documented By: Admin: 02/09/25 20:51 Dose: Not Given Documented By: [facility] Admin: 02/09/25 09:52 Dose: 1 tab Documented By: FABIÁN Sertraline HCl (Sertraline Hcl 100 Mg Tablet) 200 mg PO DAILY TOD Stop: 03/11/25 08:59 Last Admin: 02/11/25 08:56 Dose: 200 mg Documented By: Admin: 02/10/25 08:41 Dose: 200 mg Documented By: Admin: 02/09/25 09:40 Dose: 200 mg Documented By: FABIÁN Tamsulosin HCl (Tamsulosin Hcl 0.4 Mg Cap) 0.4 mg PO HS TDO Stop: 03/11/25 20:59 Last Admin: 02/10/25 21:47 Dose: 0.4 mg Documented By: [facility] Admin: 02/09/25 21:02 Dose: 0.4 mg Documented By: [facility] Ticagrelor (Ticagrelor 90 Mg Tab) 90 mg PO BIDM TOD Stop: 03/11/25 07:59 Last Admin: 02/11/25 08:56 Dose: 90 mg Documented By: Admin: 02/10/25 17:19 Dose: 90 mg Documented By: Admin: 02/10/25 08:40 Dose: 90 mg Documented By: Admin: 02/09/25 17:23 Dose: 90 mg Documented By: Admin: 02/09/25 09:47 Dose: 90 mg Documented By: FABIÁN Coding Level of Care Code 81395 IN/OBS CONSULT LVL 3,45M Diagnoses Sternal fracture S22.21XA Encounter type: initial encounter Fracture type: closed Sternal location: manubrium Hypertensive urgency I16.0
[2025-02-11] MEDS: ACETAMINOPHEN 500 MG TAB PO SCH (17:53)
--- NOTE | 2025-02-11 18:48 | Hospitalist Progress Note ---
Date of Service February 11, 2025 Assessment & Plan (1) Hypertensive urgency: Plan: per previous hospitalist notes with addendum 84-year-old male with past med history significant for CAD status post stenting 06/2024, hypertension, hyperlipidemia, history of pituitary adenoma s/p surgery, panhypopituitarism(growth hormone deficiency, ACTH deficiency, central hypogonadism, toxic multinodular goiter as per records), hyperprolactinemia per records, chronic steroid treatment, CKD stage III, chronic anemia baseline hemoglobin 12-13, melanoma per records, BPH, anxiety/mood disorder, history of DVT, chronic back pain, past tobacco use, recent fall and sternal fracture comes because of headache and hypertensive urgency. Patient states he was having severe headache today. When blood pressure checked was in 200s so he came to the ER. He had nausea but currently nausea is improved. Vision is okay. No runny nose or sore throat. No cough. Denies chest pain or shortness of breath. No abdominal pain. Constipated because of using narcotic pain medications for her sternal fracture. Not micturate much says having some difficulty micturating. Hypertensive urgency Continue home medications of Imdur, lisinopril, metoprolol succinate and Bumex At home on clonidine as needed but patient having bradycardia Will place on IV hydralazine as needed Consult nephrology in a.m. for further recommendations 02/11 blood pressure on the lower side yesterday afternoon Change lisinopril to 5 mg daily Continue amlodipine Monitor closely Headache Most from above CT head is okay Pain control -resolved Patient is status post fall and sternal fracture - discussed with patient's DC narcotics to prevent delirium given patient's age group, tendency for confusion Start Tylenol 1 g p.o. every 8 hours History of CAD s/p stent On aspirin, Brilinta and statin metoprolol and Imdur Carotid artery stenosis On aspirin Brilinta and statin History of pituitary adenoma post surgery Panhypopituitarism Follows with nephrology On hydrocortisone and testosterone supplement History of multinodular goiter-thyroidism Previously on methimazole and history of methimazole intolerance and currently not on it. Will follow thyroid profile-- TSH low, free T4 elevated, will discuss with Endo service BPH On dutasteride tamsulosin and doxazosin Monitor for retention bladder scan tid Chronic back pain At home on Tylenol codeine as needed and Lyrica Insomnia On trazodone nightly Generalized anxiety disorder On Zoloft and Seroquel psychiatry service consulted, appreciate the recommendations CKD stage III Baseline creatinine 1.8-2 Creatinine is 1.08 today Follows with nephrology DVT prophylaxis SCDs and heparin subcu Disposition Anticipate discharge to home tomorrow if medically stable Admission and Anticipated Discharge Date Admission Date: February 09, 2025 Subjective Follow-up for hypertension, etc. Seen resting in bed, having significant pain over her sternal fracture area No shortness of breath, palpitations, dizziness Otherwise feels okay No other new symptoms Review of Systems Review of Systems: all noted and negative except for above Physical Exam Physical Exam: General- oriented x 3, not in distress, speaks in sentences with no effort or accessory muscle use Eyes- anicteric Neck- no JVD Lungs- clear breath sounds bilaterally, no rales/wheezes Heart- normal rate, regular rhythm; no murmurs Abdomen- normal bowel sounds, nondistended, soft, nontender Extremities- no pretibial edema, no calf tenderness Neuro- alert, oriented x 3; no gross focal neurologic deficits Skin- warm & dry Results & Data Results & Data Vital Signs (Past 12 Hours) Vital Signs Temp Pulse Pulse Resp BP Pulse Ox O2 Del Method 02/11/25 15:49 37.1 C 61 16 121/61 92 Room Air 02/11/25 15:00 63 02/11/25 11:13 36.7 C 65 16 127/62 95 Room Air 02/11/25 08:00 63 02/11/25 08:00 Room Air 02/11/25 07:54 36.7 C 72 16 164/77 H 94 Room Air all noted and reviewed including below
[2025-02-12 07:22] VITALS: BP 159/74; RESP 18; TEMP 97.9; O2SAT 95
--- NOTE | 2025-02-12 08:54 | Nephrology Progress Note ---
Date of Service February 12, 2025 Assessment & Plan (1) Hypertension: Plan: * Admitted due to hypertensive urgency. Patient reports adherence with prescribed medications but home medication list does not include amlodipine, lisinopril or PRN clonidine that have been prescribed as outpatient * Suspect medication nonadherence as outpatient. He likely requires assistance at home to administer medications properly. May need to consider home health nursing to fill medication pill box weekly or pharmacy pill packs * Renal artery Doppler 12/30 was negative for MARQUITA * Will not initiate further evaluation for secondary causes as patient is on relatively low doses of BP medications and adherence is questionable * Recommend 1500 mg/day NaCl restricted diet * BP has improved since admission. SBP 120-150 mm Hg last 24 hours while taking home medical regimen * Continue metoprolol succinate 50 mg qAM, isosorbide 30 mg qAM, amlodipine 5 mg qAM, bumetanide 1 mg qAM, lisinopril 5 mg qAM * I have asked my co founder and chief strategy officer staff to contact patient and schedule nephrology outpatient visit in 2 weeks. Orders were placed in EMR to outpatient labs to be completed 2 days prior to his visit (2) Chronic kidney disease, stage III (moderate): Plan: * CKD stage G3a/A2 (moderate impairment). Baseline Cr 1.5-1.8 w/ EGFR 45 cc/min. Hematuria due to renal cysts. Urine sediment is negative for cellular casts. 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 Stable on imaging studies * 06/02 Urology evaluation: large R multicystic kidney. Urology indicated that these are simple cysts and did not recommend nephrectomy. Urology advised reevaluation in 1 year, patient declined * 06/[address]: multicystic dysplastic R kidney. L kidney without hydronephrosis * 05/06 Renal US revealed a 19 cm multicystic R kidney. L kidney was 10 cm with two small simple cysts. There was no solid renal mass reported. * Kidney function is stable at this time. Volume status and electrolyte balance are acceptable (3) Anxiety: Plan: * Severe anxiety despite duloxetine and seroquel. Patient has been assessed by psychiatry. No changes to current medical regimen advised * Possible opioid use disorder. Has h/o spinal stenosis w/ neurogenic claudication. Was under the care of pain management but declined further injections. Was last seen by PCP 01/07 and noted to have increasing use of opioids. Spouse feels this has resulted in lethargy and recent fall w/ sternal fracture. Admission and Anticipated Discharge Date Admission Date: February 09, 2025 Subjective Mr. Wilkerson was evaluated in his hospital room this morning. He currently denies MCRAE, angina, or dyspnea. He is tolerating his current medical regimen without side effect. He is anxious to return home Review of Systems Constitutional: no fever Eyes: no problem reported Ear, Nose, Mouth, Throat: no problem reported Respiratory: no cough and no dyspnea Cardiovascular: no chest pain Gastrointestinal: no abdominal pain, no nausea, no vomiting and no diarrhea/loose stools Genitourinary: no dysuria or no hematuria Integumentary: no rash Neurologic: + unsteadiness and + falls; no localized weakness Physical Exam Constitutional: + frail appearing; not in distress Eyes: PERRL, conjunctivae normal, anicteric sclerae ENMT: external ear and nose normal, oropharynx normal Neck: trachea midline, no thyromegaly Respiratory: normal respiratory effort, lungs clear to auscultation Cardiovascular: RRR, no murmur, no edema Extremities: no edema Gastrointestinal (Abdomen): normal bowel sounds, soft, nontender, no hepatosplenomegaly Skin: + turgor decreased Neurologic: no focal motor deficits Psychiatric: Affect: + anxious affect Results & Data Vital Signs (Past 12 Hours) Vital Signs Temp Pulse Pulse Resp BP BP Pulse Ox 02/12/25 08:47 54 L 02/12/25 08:47 02/12/25 07:21 36.6 C 55 L 18 159/74 H 95 02/12/25 03:43 36.7 C 55 L 17 138/70 94 02/11/25 23:05 36.8 C 55 L 16 152/66 H 93 02/11/25 22:00 56 L O2 Del Method 02/12/25 08:47 02/12/25 08:47 Room Air 02/12/25 07:21 Room Air 02/12/25 03:43 Room Air 02/11/25 23:05 Room Air 02/11/25 22:00 Laboratory Results Laboratory Results - last 24 hr 02/12/25 05:45 Sodium Pending Potassium Pending Chloride Pending Carbon Dioxide Pending Anion Gap Pending BUN Pending Creatinine Pending Est Cr Clr Drug Dosing Pending eGFR Pending BUN/Creatinine Ratio Pending Glucose Pending Calcium Pending PG Care Time/CCT Total # of Minutes Spent Total Time Spent with Patient: Total time spent is greater than 50% in coordination of care (as documented) at patient's floor/unit and/or counseling patient: Coding Level of Care Code 43402 SUB INP/OBS CARE 3/50MIN Diagnoses Hypertension I10 Chronic kidney disease, stage III (moderate) N18.30 Chronic kidney disease stage 3 subtype: unspecified whether 3a or 3b Anxiety F41.9 (2) Chronic kidney disease, stage III (moderate) Chronic kidney disease stage 3 subtype: unspecified whether 3a or 3b Qualified Code(s): N18.30 - Chronic kidney disease, stage 3 unspecified
[2025-02-12 10:25] LABS: Calcium 8.5 mg/dl (8.6-10.3); Creatinine Clr Calc Pharmacy 45.1 ml/min; Potassium 3.6 mmol/L (3.5-5.1)
[2025-02-12 10:59] VITALS: PULSE 55
--- NOTE | 2025-02-12 17:35 | Discharge Summary ---
Discharge Summary Date of Service February 12, 2025 Principal Dx & Hospital Course #1 = Principal Diagnosis (1) Hypertensive urgency: (1) Hypertensive urgency: Plan: per previous hospitalist notes with addendum 84-year-old male with past med history significant for CAD status post stenting 06/2024, hypertension, hyperlipidemia, history of pituitary adenoma s/p surgery, panhypopituitarism(growth hormone deficiency, ACTH deficiency, central hypogonadism, toxic multinodular goiter as per records), hyperprolactinemia per records, chronic steroid treatment, CKD stage III, chronic anemia baseline hemoglobin 12-13, melanoma per records, BPH, anxiety/mood disorder, history of DVT, chronic back pain, past tobacco use, recent fall and sternal fracture comes because of headache and hypertensive urgency. Patient states he was having severe headache today. When blood pressure checked was in 200s so he came to the ER. He had nausea but currently nausea is improved. Vision is okay. No runny nose or sore throat. No cough. Denies chest pain or shortness of breath. No abdominal pain. Constipated because of using narcotic pain medications for her sternal fracture. Not micturate much says having some difficulty mictur ating. Hypertensive urgency possible hypertensive emergency admitting blood pressure in the systolics 200s nephrology service consulted Amlodipine added, as well as lisinopril Blood pressure improved Discharge plan: Continue amlodipine and lisinopril at home Continue the rest of usual blood pressure medications Monitor closely Headache Most from above CT head is okay Pain control -resolved Patient is status post fall and sternal fracture - discussed with patient's DC narcotics to prevent delirium given patient's age group, tendency for confusion Start Tylenol 1 g p.o. every 8 hours, Pain improved History of CAD s/p stent On aspirin, Brilinta and statin metoprolol and Imdur Carotid artery stenosis On aspirin Brilinta and statin History of pituitary adenoma post surgery Panhypopituitarism Follows with nephrology On hydrocortisone and testosterone supplement History of multinodular goiter-thyroidism Previously on methimazole and history of methimazole intolerance and currently not on it. thyroid profile-- TSH low less than 0.01, free T4 elevated 0.011.8, please discuss with endocrinology service and follow-up with endocrinology service closely BPH On dutasteride tamsulosin and doxazosin Monitor for retention bladder scan tid Chronic back pain At home on Tylenol codeine as needed and Lyrica - narcotics discontinued Insomnia On trazodone nightly Generalized anxiety disorder On Zoloft and Seroquel psychiatry service consulted,Continue usual psych meds CKD stage III Baseline creatinine 1.8-2 Creatinine is 1.08 Follows with nephrology Disposition Discharge to home PCP follow-up in 1 week Notes For Next Care Provider thyroid profile-- TSH low less than 0.01, free T4 elevated 0.011.8, please discuss with endocrinology service and follow-up with endocrinology service closely Medication Changes From Visit as per med rec Admission HPI Per Admitting Provider 84-year-old male with past med history significant for CAD status post stenting 06/2024, hypertension, hyperlipidemia, history of pituitary adenoma s/p surgery, panhypopituitarism(growth hormone deficiency, ACTH deficiency, central hypogonadism, toxic multinodular goiter as per records), hyperprolactinemia per records, chronic steroid treatment, CKD stage III, chronic anemia baseline hemoglobin 12-13, melanoma per records, BPH, anxiety/mood disorder, history of DVT, chronic back pain, past tobacco use, recent fall and sternal fracture comes because of headache and hypertensive urgency. Patient states he was having severe headache today. When blood pressure checked was in 200s so he came to the ER. He had nausea but currently nausea is improved. Vision is okay. No runny nose or sore throat. No cough. Denies chest pain or shortness of breath. No abdominal pain. Constipated because of using narcotic pain medications for her sternal fracture. Not micturate much says having some difficulty micturating. Past medical history. As mentioned above Past surgical history. Colonoscopy or EGD. Injection of lumbosacral spine. Removal of pituitary gland in 2019. Social history. . Quit smoking 1968. No alcohol use. No drug use. Family history. Daughter had breast cancer. Father had CHF. Mother had NH.. Admission Exam Per Admitting Provider General- Not in distress Head- atraumatic Eyes- PERRL. ENT- oropharynx clear Neck- supple, no JVD. Lungs- clear to auscultation no wheezing or crackles Heart- regular rhythm; no murmur, no gallop. Abdomen- normal bowel sounds, soft, nontender, no distension Extremities- no pretibial edema, no erythema seen Neuro- alert, oriented PERRL, no facial palsy; no dysarthria; moves extremities Discharge Exam General- oriented x 3, not in distress, speaks in sentences with no effort or accessory muscle use Eyes- anicteric Neck- no JVD Lungs- clear breath sounds bilaterally, no rales/wheezes Heart- normal rate, regular rhythm; no murmurs Abdomen- normal bowel sounds, nondistended, soft, nontender Extremities- no pretibial edema, no calf tenderness Neuro- alert, oriented x 3; no gross focal neurologic deficits Skin- warm & dry Updated Medication List Medication Instructions Recorded Confirmed Type aspirin 81 mg tablet,delayed 81 mg PO DAILY 08/07/24 02/08/25 History release dicyclomine 20 mg tablet 20 mg PO TID 08/07/24 02/08/25 History dutasteride 0.5 mg-tamsulosin ER 1 cap PO HS 08/07/24 02/08/25 History 0.4 mg capsule ext.release 24hr mphas isosorbide mononitrate 30 mg 30 mg PO QAM 08/07/24 02/08/25 History tablet,extended release 24 hr magnesium 250 mg tablet 250 mg PO QAM 08/07/24 02/08/25 History nitroglycerin 0.4 mg sublingual 0.4 mg sublingual DIRECTED PRN 08/07/24 02/08/25 History tablet Chest Pain calcium carbonate (Tums) 2,250 mg PO DAILY PRN Acid Reflux 08/22/24 02/08/25 History ##0 calcium 600 mg-D3 800 unit-mag 40 1 tab PO BIDM 10/01/24 02/08/25 History mb-jcfg-ebls-max-boron chew tablet (Caltrate 600-D Plus Minerals) docusate sodium 100 mg capsule 200 mg PO QAM 10/01/24 02/08/25 History (Colace) duloxetine 30 mg capsule,delayed 30 mg PO QAM 10/01/24 02/08/25 History release (Cymbalta) ferrous sulfate 325 mg (65 mg 325 mg PO QAM 10/08/24 02/08/25 History iron) tablet (Feosol) ascorbic acid (vitamin C) 500 mg 500 mg PO QAM 10/15/24 02/08/25 History tablet (Vitamin C) metoprolol succinate 50 mg 50 mg PO BIDM 10/15/24 02/08/25 History tablet,extended release 24 hr testosterone 1 pump topical QAM #75 grams 10/29/24 02/08/25 Rx triamcinolone acetonide 0.1 % 1 applic topical DIRECTED PRN 01/10/25 02/08/25 History topical cream Skin Irritation atorvastatin 40 mg tablet 40 mg PO DAILY 01/27/25 02/08/25 History bumetanide 1 mg tablet 1 mg PO QAM 01/27/25 02/08/25 History clonidine HCl 0.1 mg tablet 0.1 mg PO DAILY PRN hypertensive 01/28/25 02/08/25 Rx emergency #30 tabs cyanocobalamin (vitamin B-12) 1,000 mcg PO DAILY 02/08/25 02/08/25 History 1,000 mcg tablet (Vitamin B-12) diclofenac sodium 1 % topical gel 2 g topical QID PRN Pain 02/08/25 02/08/25 History doxazosin 4 mg tablet 8 mg PO HS 02/08/25 02/08/25 History hydrocortisone 5 mg tablet 10 mg PO HS 02/08/25 02/08/25 History hydrocortisone 5 mg tablet 20 mg PO QAM 02/08/25 02/08/25 History budwbonnmkcg-cvdqqych-qmoesh 1 tab PO DAILY 02/08/25 02/08/25 History tablet (Multivitamin 50 Plus tablet) pregabalin 50 mg capsule 50 mg PO AMHS 02/08/25 02/08/25 History sertraline 100 mg tablet 200 mg PO DAILY 02/08/25 02/08/25 History ticagrelor 90 mg tablet (Brilinta) 90 mg PO BIDM 02/08/25 02/08/25 History acetaminophen 500 mg tablet 1,000 mg (2 x 500 mg) PO Q8H PRN 02/12/25 Rx (Tylenol Extra Strength) pain #20 tabs amlodipine 5 mg tablet (Norvasc) 5 mg PO QAM 30 days #30 tabs 02/12/25 Rx lisinopril 5 mg tablet 5 mg PO DAILY 30 days #30 tabs 02/12/25 Rx quetiapine 25 mg tablet (Seroquel) 25 mg PO HS #30 tabs 02/12/25 Rx Hospital Stay Data Consultations 02/08/25 22:10 ED Decision to Admit Stat 02/09/25 08:00 Consult Nephrology Routine 02/10/25 10:09 Consult Psychiatry Routine Diagnostic Imagining Performed Laboratory Results WBC 7.79 K/ul (4.8-10.8) 02/10/25 05:33 RBC 3.77 M/uL (4.70-6.10) L 02/10/25 05:33 Hgb 11.9 g/dl (14.0-18.0) L 02/10/25 05:33 Hct 35.0 % (42.0-52.0) L 02/10/25 05:33 MCV 92.8 fL (80.0-100.0) 02/10/25 05:33 MCH 31.6 pg (25.0-34.0) 02/10/25 05:33 MCHC 34.0 g/dL (32.0-36.0) 02/10/25 05:33 RDW Std Deviation 48.4 fL (36.4-46.3) H 02/10/25 05:33 RDW Coeff of Mehnaz 14.3 % (11.5-14.5) 02/10/25 05:33 Plt Count 120 K/uL (130-400) L 02/10/25 05:33 MPV 11.4 fL (9.4-12.4) 02/10/25 05:33 Immature Gran % (Auto) 0.4 % 02/09/25 05:21 Neut % (Auto) 64.3 % 02/09/25 05:21 Lymph % (Auto) 22.4 % 02/09/25 05:21 Barbour % (Auto) 7.4 % 02/09/25 05:21 Eos % (Auto) 5.0 % 02/09/25 05:21 Baso % (Auto) 0.5 % 02/09/25 05:21 Neut # (Auto) 7.89 K/uL (1.40-6.50) H 02/09/25 05:21 Lymph # (Auto) 2.75 K/uL (1.20-3.40) 02/09/25 05:21 Barbour # (Auto) 0.91 K/uL (0.11-0.59) H 02/09/25 05:21 Eos # (Auto) 0.62 K/uL (0.00-0.50) H 02/09/25 05:21 Baso # (Auto) 0.06 K/uL (0.00-0.20) 02/09/25 05:21 Immature Gran # (Auto) 0.05 K/uL (0.01-0.20) 02/09/25 05:21 Sodium 144 mmol/L (136-145) 02/12/25 05:45 Potassium 3.6 mmol/L (3.5-5.1) 02/12/25 05:45 Chloride 110 mmol/L (98-107) H 02/12/25 05:45 Carbon Dioxide 26 mmol/L (21-32) 02/12/25 05:45 Anion Gap 8 (3-11) 02/12/25 05:45 BUN 30 mg/dl (6-23) H 02/12/25 05:45 Creatinine 1.20 mg/dl (0.6-1.4) 02/12/25 05:45 Est Cr Clr Drug Dosing 45.1 ml/min 02/12/25 05:45 eGFR 60.00 02/12/25 05:45 BUN/Creatinine Ratio 25.0 (10-20) H 02/12/25 05:45 Glucose 95 mg/dl (70-99(Fasting)) 02/12/25 05:45 Calcium 8.5 mg/dl (8.6-10.3) L 02/12/25 05:45 Magnesium 1.8 mg/dl (1.7-2.4) 02/09/25 05:21 Total Bilirubin 0.9 mg/dl (0.2-1.0) 02/08/25 18:51 AST 25 U/L (13-39) 02/08/25 18:51 ALT 19 U/L (7-52) 02/08/25 18:51 Alkaline Phosphatase 91 U/L (34-104) 02/08/25 18:51 Troponin I High Sens 17.5 pg/ml (0-20) 02/08/25 20:29 Total Protein 6.4 gm/dl (6.0-8.3) 02/08/25 18:51 Albumin 3.5 gm/dl (3.4-5.0) 02/08/25 18:51 Globulin 2.9 gm/dl (2.5-4.0) 02/08/25 18:51 Albumin/Globulin Ratio 1.2 (0.9-2) 02/08/25 18:51 TSH < 0.010 uIu/ml (0.300-4.500) L 02/10/25 05:33 Free T4 1.80 ng/dl (0.61-1.60) H 02/10/25 05:33 Free T3 3.22 pg/ml (2.3-4.2) 02/10/25 10:41 Urine Color Yellow 02/10/25 06:00 Urine Appearance Clear (Clear) 02/10/25 06:00 Urine pH 5.5 (4.5-7.5) 02/10/25 06:00 Ur Specific V[place]inckel 1.014 (1.000-1.030) 02/10/25 06:00 Urine Protein Negative (Negative) 02/10/25 06:00 Urine Glucose (UA) Negative (Negative) 02/10/25 06:00 Urine Ketones Trace (Negative) H 02/10/25 06:00 Urine Blood Negative (Negative) 02/10/25 06:00 Urine Nitrite Negative (Negative) 02/10/25 06:00 Urine Bilirubin Negative (Negative) 02/10/25 06:00 Urine Urobilinogen Negative (Negative) 02/10/25 06:00 Ur Leukocyte Esterase Negative (Negative) 02/10/25 06:00 Urine WBC (Auto) 0-5 /hpf (0-5) 02/08/25 21:05 Urine RBC (Auto) 11-20 /hpf (0-2) H 02/08/25 21:05 U Hyaline Cast (Auto) 0-2 /lpf (0-2) 02/08/25 21:05 U Epithel Cells (Auto) 0-2 /hpf (0-2) 02/08/25 21:05 Urine Bacteria (Auto) None Seen (None Seen) 02/08/25 21:05 Ur Random Creatinine 101.6 mg/dl 02/10/25 06:00 U Random Total Protein 11.2 mg/dl (0-11.9) 02/10/25 06:00 Protein/Creatinin Ratio 0.1 (0-0.2) 02/10/25 06:00 Urine Comment 02/08/25 21:05 Impressions Chest X-Ray 02/08/25 18:52 Chest radiograph, one view History: Chest pain Comparison: 02/06/2025 Findings: Single AP view of the chest performed. No focal consolidation or pleural effusion. No pneumothorax. The cardiomediastinal silhouette is within normal limits. Normal pulmonary vascularity. No evidence for lymphadenopathy. No visualized bony or soft tissue abnormality. Impression: Normal chest radiograph Electronically signed by Xander Montes 02-08-2025 7:[address] 02/08/25 19:06 EXAM: CT head/brain wo con CLINICAL HISTORY: headache TECHNIQUE: Axial non-contrast CT scan of the brain was performed from the skull base to the high parietal region. One of the following dose reduction techniques were utilized for this exam: Automated exposure control, adjustment of the mA and/or kV according to patient size, use of iterative reconstruction. CTDI: 38.62 mGy, DLP: 625.80 mGy-cm. COMPARISON: CT dated 02/06/2025 and 01/27/2025. Previous MRI dated 01/10/2025. FINDINGS: Brain Parenchyma: Age related involutional changes. Normal attenuation of the cerebral hemispheres, cerebellum, and brainstem. No evidence of acute infarct, hemorrhage, or mass effect. No abnormal areas of hypo- or hyperattenuation. Ventricular System: Ventricles are normal in size and configuration. No evidence of hydrocephalus or ventricular enlargement. Subarachnoid Spaces: Normal sulci and cisterns. No evidence of subarachnoid hemorrhage or extra-axial fluid collections. Cerebellum and Brainstem: No masses, lesions, or areas of abnormal density. Orbits: Normal appearance of the globes, optic nerves, and extraocular muscles. No evidence of orbital masses or abnormal density. Sinuses: Clear paranasal sinuses. No evidence of sinusitis or mucosal thickening. Mastoid Air Cells: Clear mastoid air cells. No evidence of mastoiditis. Skull: Post surgical changes of craniotomy in left frontal bone. Old. IMPRESSION: 1. No acute intracranial abnormality detected. 2. Age related involutional changes. 3. No significant interval change from priors. Electronically signed by Amaury Victor 02-08-2025 8:43 PM Pending Results Patient Have Any Pending Studies at Discharge: No Discharge Instructions Given to Patient (Per Discharging Provider) PLEASE REFER TO YOUR NEW MEDICATION LIST AND FOLLOW INSTRUCTIONS CAREFULLY. YOUR NEW MEDICATIONS INCLUDE: AMLODIPINE, LISINOPRIL- for blood pressure control TYLENOL 1,000MG EVERY 8 HOURS NEEDED FOR PAIN- do not exceed more than 3,000mg in 24 hours PLEASE CALL YOUR PRIMARY CARE PHYSICIAN OR RETURN TO THE ER IF WITH WORSENING OF SYMPTOMS, INCLUDING chest pain, headache, chest pain, shortness of breath, palpitations, dizziness, etc FOLLOW UP WITH PRIMARY CARE PHYSICIAN OUTLINED ABOVE. FOLLOW UP WITH DR. TORRES IN 2 WEEKS. Total Time Total Time Spent Total Time Spent (In Minutes): 45 minutes
== END 2025-02-12 12:44 | disposition home or self-care (01) | DRG 305 ==
LOC: ED 18:36 → SUATTDRO 02-09 01:01 → INTOOBSV 02-09 01:01 → 4W 02-09 01:01